=== PATIENT | male | born 1960 | race Caucasian/White ===

== ENCOUNTER 2023-10-20 10:05 | Outpatient (OUT) | payer MEDICARE, SELFPAY ==
[2023-10-20 10:34] LABS: Anion Gap 15.9; BUN Creatinine Ratio 20.3; Calcium 8.8 mg/dL (8.5-10.1); Carbon Dioxide 23.9 mmol/L (21.0-32.0); Chloride 103 mmol/L (98-107); Estimated GFR (African America 56 (>=60); Estimated GFR (Non-African Ame 46 (>=60); Glucose 175 mg/dL (74-106); Potassium 4.8 mmol/L (3.5-5.1); Sodium 138 mmol/L (136-145)
[2023-10-20 10:40] LABS: Estimated Average Glucose 151 mg/dL; Glycohemoglobin A1C 6.9 % (4.5-6.2)
== END 2023-10-20 10:06 | disposition home or self-care (01) ==
LOC: LAB 10:05
PROVIDERS: PCP Nurse Practitioner; Visit Provider Nurse Practitioner
DX: Z12.5 Encounter for screening for malignant neoplasm of prostate (principal); N18.30 Chronic kidney disease, stage 3 unspecified; E11.42 Type 2 diabetes mellitus with diabetic polyneuropathy
CPT/HCPCS: 36415; 80048; 83036; G0103

== ENCOUNTER 2023-12-12 12:41 | Outpatient (RCR) | payer MEDICARE, SELFPAY | END 2024-01-18 17:05 | disposition home or self-care (01) | LOC: PT 12:41 | PROVIDERS: PCP Nurse Practitioner; Visit Provider Orthopaedic Surgery | DX: Z96.641 Presence of right artificial hip joint (principal); R26.89 Other abnormalities of gait and mobility | CPT/HCPCS: 97110; 97161 ==

== ENCOUNTER 2024-02-28 09:09 | Outpatient (OUT) | payer MEDICARE, SELFPAY ==
[2024-02-28 09:34] LABS: Basophils Percent Auto 0.5 % (0.2-2.0); Eosinophils Absolute Auto 0.1 10^3/uL (0.0-0.7); Eosinophils Percent Auto 2.1 % (0.9-7.0); Hematocrit 36.9 % (42.0-54.0); Immature Granulocytes Abs Auto 0.02 10^3/uL (0.00-0.03); Immature Granulocytes Pct Auto 0.4 % (0.0-0.5); Lymphocytes Absolute Auto 1.3 10^3/uL (1.2-3.8); Lymphocytes Percent Auto 22.2 % (20.5-60.0); Mean Corpuscular HGB Conc 32.5 g/dL (29.9-35.2); Mean Corpuscular Hemoglobin 32.2 pg (25.9-34.0); Mean Corpuscular Volume 98.9 fL (80.0-94.0); Monocytes Absolute Auto 0.6 10^3/uL (0.3-0.8); Monocytes Percent Auto 9.6 % (1.7-12.0); Neutrophils Absolute Auto 3.7 10^3/uL (1.4-6.5); Neutrophils Percent Auto 65.2 % (43.0-75.0); Platelet Count 198 10^3/uL (150-450); Red Blood Count 3.73 10^6/uL (4.70-6.10); Red Cell Distribution Width 13.4 % (11.0-15.0); White Blood Count 5.7 10^3/uL (4.0-11.0)
[2024-02-28 09:52] LABS: Bilirubin Urine NEGATIVE (NEGATIVE); Blood Urine NEGATIVE (NEGATIVE); Clarity Urine CLEAR (CLEAR); Color Urine LT. YELLOW (YELLOW); Glucose Urine UA NEGATIVE (NEGATIVE); Ketones Urine NEGATIVE (NEGATIVE); Leukocyte Esterase Urine NEGATIVE (NEGATIVE); Nitrite Urine NEGATIVE (NEGATIVE); Protein Urine NEGATIVE (NEG/TRACE); Urobilinogen Urine 0.2 EU/dL (0.2-1.0); pH Urine 5.5 (5.0-9.0)
[2024-02-28 10:03] LABS: Bacteria Urine NONE SEEN #/HPF (NONE SEEN); Cast Seen? NONE SEEN #/LPF (NONE SEEN); Crystals Seen? None Seen #/HPF (None Seen); Mucus Urine NONE SEEN (NONE SEEN); RBC Urine 0-2 #/HPF (0-2); Squamous Epithelial Cell Urine RARE #/LPF (NONE/RARE); WBC Urine NONE SEEN #/HPF (NONE SEEN)
[2024-02-28 10:42] LABS: Estimated Average Glucose 151 mg/dL; Glycohemoglobin A1C 6.9 % (4.5-6.2)
[2024-02-28 11:10] LABS: Alanine Aminotransferase 28 U/L (16-63); Albumin Globulin Ratio 0.9; Albumin Level 3.5 g/dL (3.4-5.0); Alkaline Phosphatase 120 U/L (46-116); Anion Gap 13.7; Aspartate Amino Transferase 14 U/L (15-37); BUN Creatinine Ratio 18.8; Bilirubin Total 0.3 mg/dL (0.2-1.0); Calcium 9.3 mg/dL (8.5-10.1); Carbon Dioxide 26.7 mmol/L (21.0-32.0); Chloride 103 mmol/L (98-107); Chol HDL Ratio 2.4; Cholesterol 122 mg/dL (<=200); Estimated GFR (African America >60 (>=60); Estimated GFR (Non-African Ame 52 (>=60); Globulin 3.8 g/dL; Glucose 158 mg/dL (74-106); HDL Cholesterol 50 mg/dL (40-60); LDL Cholesterol Calculated 52.2 mg/dL; Potassium 4.4 mmol/L (3.5-5.1); Sodium 139 mmol/L (136-145); Total Protein 7.3 g/dL (6.4-8.2); Triglycerides 99 mg/dL (<=150); VLDL CHOLESTEROL 19.8 mg/dL
[2024-02-28 12:16] LABS: Creatinine Urine Random 44.27 mg/dL (20.00-300.00); Microalbumin Urine Random <1.3 mg/dL (<=30.0)
== END 2024-02-28 09:10 | disposition home or self-care (01) ==
LOC: LAB 09:13
PROVIDERS: PCP Nurse Practitioner; Visit Provider Nurse Practitioner
DX: E78.2 Mixed hyperlipidemia (principal); E11.9 Type 2 diabetes mellitus without complications; Z79.4 Long term (current) use of insulin; N18.30 Chronic kidney disease, stage 3 unspecified; I12.9 Hypertensive chronic kidney disease with stage 1 through stage 4 chronic kidney disease, or unspecified chronic kidney disease; E53.8 Deficiency of other specified B group vitamins; E56.9 Vitamin deficiency, unspecified
CPT/HCPCS: 36415; 80053; 80061; 81001; 82043; 82306; 82570; 82607; 83036; 85025

== ENCOUNTER 2024-05-27 12:40 | Outpatient (OUT) | payer MEDICARE, SELFPAY ==
[2024-05-27 13:24] LABS: Basophils Percent Auto 0.5 % (0.2-2.0); Eosinophils Absolute Auto 0.3 10^3/uL (0.0-0.7); Eosinophils Percent Auto 4.1 % (0.9-7.0); Hematocrit 37.3 % (42.0-54.0); Hemoglobin 12.4 g/dL (14.0-18.0); Immature Granulocytes Abs Auto 0.03 10^3/uL (0.00-0.03); Immature Granulocytes Pct Auto 0.5 % (0.0-0.5); Lymphocytes Absolute Auto 1.5 10^3/uL (1.2-3.8); Lymphocytes Percent Auto 23.1 % (20.5-60.0); Mean Corpuscular HGB Conc 33.2 g/dL (29.9-35.2); Mean Corpuscular Volume 99.2 fL (80.0-94.0); Mean Platelet Volume 10.4 fL (9.5-13.5); Monocytes Absolute Auto 0.6 10^3/uL (0.3-0.8); Monocytes Percent Auto 8.8 % (1.7-12.0); Neutrophils Absolute Auto 4.1 10^3/uL (1.4-6.5); Platelet Count 233 10^3/uL (150-450); Red Blood Count 3.76 10^6/uL (4.70-6.10); Red Cell Distribution Width 13.1 % (11.0-15.0); White Blood Count 6.6 10^3/uL (4.0-11.0)
[2024-05-27 13:26] LABS: Bilirubin Urine NEGATIVE (NEGATIVE); Blood Urine NEGATIVE (NEGATIVE); Clarity Urine CLEAR (CLEAR); Color Urine YELLOW (YELLOW); Glucose Urine UA NEGATIVE (NEGATIVE); Ketones Urine NEGATIVE (NEGATIVE); Leukocyte Esterase Urine NEGATIVE (NEGATIVE); Nitrite Urine NEGATIVE (NEGATIVE); Protein Urine NEGATIVE (NEG/TRACE); Specific Gravity Urine 1.025 (1.005-1.025); Urobilinogen Urine 0.2 EU/dL (0.2-1.0)
[2024-05-27 13:27] LABS: Urine Microscopic Indicated NO
[2024-05-27 13:32] LABS: Estimated Average Glucose 146 mg/dL; Glycohemoglobin A1C 6.7 % (4.5-6.2)
[2024-05-27 13:55] LABS: Anion Gap 14.6; BUN Creatinine Ratio 21.6; Carbon Dioxide 25.7 mmol/L (21.0-32.0); Chloride 103 mmol/L (98-107); Estimated GFR (African America 50 (>=60); Estimated GFR (Non-African Ame 41 (>=60); Glucose 125 mg/dL (74-106); Potassium 5.3 mmol/L (3.5-5.1); Sodium 138 mmol/L (136-145)
== END 2024-05-27 12:41 | disposition home or self-care (01) ==
LOC: LAB 12:42
PROVIDERS: PCP Nurse Practitioner; Visit Provider Nurse Practitioner
DX: I12.9 Hypertensive chronic kidney disease with stage 1 through stage 4 chronic kidney disease, or unspecified chronic kidney disease (principal); N18.30 Chronic kidney disease, stage 3 unspecified; E53.8 Deficiency of other specified B group vitamins; R53.1 Weakness; E11.9 Type 2 diabetes mellitus without complications; Z79.4 Long term (current) use of insulin
CPT/HCPCS: 36415; 80048; 81003; 82607; 83036; 83540; 85025

== ENCOUNTER 2024-06-10 15:11 | Outpatient (OUT) | payer MEDICARE, SELFPAY ==
[2024-06-10 16:02] LABS: Anion Gap 10.9; BUN Creatinine Ratio 22.2; Calcium 8.9 mg/dL (8.5-10.1); Carbon Dioxide 30.5 mmol/L (21.0-32.0); Chloride 103 mmol/L (98-107); Estimated GFR (African America 53 (>=60); Estimated GFR (Non-African Ame 44 (>=60); Glucose 99 mg/dL (74-106); Potassium 4.4 mmol/L (3.5-5.1); Sodium 140 mmol/L (136-145)
== END 2024-06-10 15:12 | disposition home or self-care (01) ==
LOC: LAB 15:12
PROVIDERS: PCP Nurse Practitioner; Visit Provider Nurse Practitioner
DX: N18.32 Chronic kidney disease, stage 3b (principal)
CPT/HCPCS: 36415; 80048

== ENCOUNTER 2024-06-28 07:00 | Outpatient (RCR) | payer MEDICARE, SELFPAY | END 2024-07-26 12:08 | disposition home or self-care (01) | LOC: PT 07:00 | PROVIDERS: PCP Nurse Practitioner; Visit Provider Nurse Practitioner | DX: M47.816 Spondylosis without myelopathy or radiculopathy, lumbar region (principal); M51.36 Other intervertebral disc degeneration, lumbar region; E08.42 Diabetes mellitus due to underlying condition with diabetic polyneuropathy | CPT/HCPCS: 97110; 97161 ==

== ENCOUNTER 2024-09-03 08:22 | Outpatient (OUT) | payer MEDICARE, SELFPAY ==
--- OUTSIDE RECORDS SUMMARY | 2024-09-03 08:27 | XMS_ITS | CCD ---
Author Organization [facility] Care Team Providers Care Music Education Adjunct Professor Name Role Phone PHYSICIAN, DEFAULT Unavailable Unavailable PHYSICIAN, DEFAULT Unavailable Unavailable AICHHOLZ, MANUFACTURING TECH IDALMIS Admitting Unavailable AICHHOLZ, MANUFACTURING TECH IDALMIS Attending Unavailable AICHHOLZ, MANUFACTURING TECH IDALMIS Consulting Unavailable AICHHOLZ, MANUFACTURING TECH IDALMIS Primary Care Unavailable TEMI ANNA Attending Unavailable TEMI ANNA Admitting Unavailable AICHHOLZ, MANUFACTURING TECH IDALMIS Primary Care Unavailable AICHHOLZ, MANUFACTURING TECH IDALMIS Admitting Unavailable AICHHOLZ, MANUFACTURING TECH IDALMIS Attending Unavailable AICHHOLZ, MANUFACTURING TECH IDALMIS Consulting Unavailable AICHHOLZ, MANUFACTURING TECH IDALMIS Primary Care Unavailable AICHHOLZ, MANUFACTURING TECH IDALMIS Admitting Unavailable AICHHOLZ, MANUFACTURING TECH IDALMIS Attending Unavailable AICHHOLZ, MANUFACTURING TECH IDALMIS Consulting Unavailable AICHHOLZ, MANUFACTURING TECH IDALMIS Primary Care Unavailable AICHHOLZ, MANUFACTURING TECH IDALMIS Admitting Unavailable AICHHOLZ, MANUFACTURING TECH IDALMIS Attending Unavailable DR JOCELYN ZALDIVAR V Consulting Unavailable AICHHOLZ, MANUFACTURING TECH IDALMIS Primary Care Unavailable AICHHOLZ, MANUFACTURING TECH IDALMIS Consulting Unavailable NON STAFF Primary Care Provider UnavailMD Naima Nash Attending Provider LUIS Kendall Attending Provider Rasheeda Santamaria Unavailable Aichholz, Idalmis J Primary Care Unavailable Aichholz, Idalmis J Consulting Unavailable JACLYN SNELL Attending Unavailable FATIMAH JACLYN Jos Admitting Unavailable Aichholz, Idalmis J Primary Care Unavailable Jocelyn Zepeda Consulting Unavailable JACLYN SNELL Attending Unavailable STEPRASHAD JACLYN C Admitting Unavailable Alonso Vazquez Consulting Unavailable Aichholz CERTIFIED ADDICTION COUNSELOR, Idalmis Unavailable Aicarthur CERTIFIED ADDICTION COUNSELOR, Idalmis Unavailable Baljinder Pineda MD Primary Care Provider [phone] DEJAN BURT Attending Unavailable DEJAN BURT Attending Unavailable DEJAN BURT Referring Unavailable DEJAN BURT Attending Unavailable SAMAN MORAN Attending Unavailable DEJAN BURT Attending Unavailable MIGUEL, IDALMIS Attending Unavailable JENNY MORANANDRA H Attending Unavailable ELMIRA RUTH Attending Unavailable JOSE KENDALL Attending Unavailable SHERIDANHKUSUM, IDALMIS Attending Unavailable TEMI ANNA Attending Unavailable JOSE KENDALL Referring Unavailable MIGUEL, IDALMIS Attending Unavailable AICHHOLZ, IDALMIS Attending Unavailable SAMAN MORAN H Attending Unavailable MIGUEL, IDALMIS Attending Unavailable Charlie Mcdonald Attending Unavailab le Charlie Mcdonald Admitting Unavailab le NON STAFF Primary Care Unavailable Allergies Allergy Classification Reported Allergen(s) Allergy Type Date of Onset Reaction(s) Facility (1 source) Allopurinol Drug Allergy 4 [facility] (1 source) Bee pollen Drug allergy (disorder) 4 [facility] (1 source) Penicillins Drug allergy (disorder) 4 [facility] (2 sources) Amoxicillin Drug Allergy Unknown [facility] Other (3 sources) Penicillin; Translations: [penicillin] Drug Allergy Unknown [facility] (2 sources) pine trees Propensity to adverse reactions Unknown [facility] Other (2 sources) Tetanus Toxoid Adsorbed Drug allergy Unknown [facility] Other (1 source) Tetanus vaccine; Translations: [tetanus toxoid] Propensity to adverse reactions to drug (disorder) [facility] (4 sources) Penicillins Propensity to adverse reactions 3 Hives, Swelling [facility] (4 sources) Tetanus vaccine Propensity to adverse reactions 3 Hives, Swelling [facility] (1 source) Amoxicillin Drug Allergy 3 [facility] (1 source) Penicillins Drug allergy (disorder) 3 [facility] (1 source) [place] nut Drug allergy (disorder) 3 [facility] (1 source) tetanus toxoid, adsorbed Drug allergy (disorder) 3 [facility] Medications Current Medications Medication Drug Class(es) Dates Sig (Normalized) Sig (Original) amoxicillin 500 mg oral tablet (6 sources) Penicillin-class Antibacterial Start: 12-22-2023 End: 12-22-2023 take 4 tablets by mouth once at mealtime amoxicillin (Amoxil) 500 MG tablet Indications: S/P total right hip arthroplasty 4 tabs PO once 30-60 mins before procedure with food 4 tablet 3 12/22/2023 Active aspirin 81 mg delayed release oral tablet (4 sources) Platelet Aggregation Inhibitor, Nonsteroidal Anti-inflammatory Drug take 1 tablet by mouth in the morning aspirin 81 MG EC tablet Take 81 mg by mouth in the morning. 0 Active atorvastatin 40 mg oral tablet (4 sources) HMG-CoA Reductase Inhibitor Start: 11-16-2023 End: 02-14-2024 take 1 tablet by mouth in the morning atorvastatin (Lipitor) 40 MG tablet Indications: Type 2 diabetes mellitus with peripheral neuropathy (CMS/HCC) Take 1 tablet (40 mg) by mouth in the morning. 90 tablet 1 11/16/2023 02/14/2024 Active cholecalciferol 0.05 mg oral tablet (4 sources) Vitamin D take 1 tablet by mouth in the morning cholecalciferol (Vitamin D-3) 50 MCG (2000 UT) tablet Take 2,000 Units by mouth in the morning. 0 Active docusate sodium 100 mg oral capsule (4 sources) take 1 capsule by mouth in the morning docusate sodium (Colace) 100 MG capsule Take 100 mg by mouth in the morning and 100 mg before bedtime. 0 Active 0.5 ml dulaglutide 3 mg/ml auto-injector (2 sources) GLP-1 Receptor Agonist Trulicity 1.5 MG/0.5ML as directed Subcutaneous Active dulaglutide (Trulicity) 3 MG/0.5ML solution pen-injector (4 sources) Start: 11-16-2023 dulaglutide (Trulicity) 3 MG/0.5ML solution pen-injector Indications: Type 2 diabetes mellitus with peripheral neuropathy (CMS/HCC) INJECT 1 PEN SUBCUTANEOUSLY ONCE A WEEK 12 each 1 11/16/2023 Active fexofenadine hydrochloride 180 mg oral tablet (6 sources) Histamine-1 Receptor Antagonist Start: 09-05-2023 take 1 tablet by mouth in the morning fexofenadine (Dbe) 180 MG tablet Take 180 mg by mouth in the morning. 0 07/18/2023 Active furosemide 20 mg oral tablet (6 sources) Loop Diuretic Start: 11-16-2023 End: 02-14-2024 take 1 tablet by mouth every other day furosemide (Lasix) 20 MG tablet Indications: Bilateral lower extremity edema Take 1 tablet (20 mg) by mouth every other day 45 tablet 1 11/16/2023 02/14/2024 Active take 1 tablet by bertha th every twenty-four hours Furosemide 20 MG 1 tablet Orally Once a day Active gabapentin 300 mg oral capsule (6 sources) Anti-epileptic Agent Start: 07-18-2023 take 1 capsule by mouth in the morning, then take 1 capsule by mouth in the evening, then take 1 capsule by mouth at bedtime gabapentin (Neurontin) 300 MG capsule Take 300 mg by mouth in the morning and 300 mg in the evening and 300 mg before bedtime. 0 07/18/2023 Active glyBURIDE 5 mg oral tablet (6 sources) Sulfonylurea take 2 tablets by mouth in the morning glyBURIDE (Diabeta) 5 MG tablet Take 10 mg by mouth in the morning and 10 mg before bedtime. 0 Active take 1 tablet by bertha th every twenty-four hours glyBURIDE 5 MG 1 tablet Orally Once a day Active ibuprofen 600 mg oral tablet (6 sources) Nonsteroidal Anti-inflammatory Drug take 1 tablet by mouth twice daily as needed ibuprofen 600 MG tablet TAKE 1 TABLET BY MOUTH TWICE DAILY NEEDED WITH FOOD 0 Active 3 ml insulin lispro 25 unt/ml / insulin lispro protamine, human 75 unt/ml pen injector (6 sources) Insulin Analog Start: HumaLOG MIX 75/25 KWIKPEN (75-25) 100 UNIT/ML injection INJECT 53 UNITS SUBCUTANEOUSLY ONCE DAILY 0 08/14/2023 Active lamoTRIgine 150 mg oral tablet (6 sources) Mood Stabilizer, Anti-epileptic Agent Start: 023 take 2 tablets by mouth in the morning lamoTRIgine (LaMICtal) 150 MG tablet Take 2 tablets by mouth in the morning. 0 08/14/2023 Active lamoTRIgine 150 MG Oral for 30 Days Active losartan potassium 50 mg oral tablet (6 sources) Angiotensin 2 Receptor C[place]le Start: 10-24-2023 End: 01-22-2024 take 1 tablet by mouth in the morning losartan (Cozaar) 50 MG tablet Indications: Primary hypertension (CMS/HCC) Take 1 tablet (50 mg) by mouth in the morning. 90 tablet 1 10/24/2023 01/22/2024 Active take 1 tablet by bertha th every twenty-four hours Losartan Potassium 50 MG 1 tablet Orally Once a day Active lurasidone hydrochloride 20 mg oral tablet (10 sources) Atypical Antipsychotic Start: 08-14-2023 take 1 tablet by mouth once daily at mealtime Latuda 80 MG tablet TAKE 1 TABLET BY MOUTH ONCE DAILY WITH FOOD (ATLEAST 350 CALORIES) 0 08/14/2023 Active Start: 08-14-2023 take 1 tablet by bertha th once daily Latuda 20 MG tablet TAKE 1 TABLET BY MOUTH ONCE DAILY (TAKE IN ADDITION TO 80MG TABLET TO EQUAL 100MG) 0 08/14/2023 Active metFORMIN hydrochloride 1000 mg oral tablet (6 sources) Biguanide Start: 11-16-2023 End: 02-14-2024 take 1 tablet by mouth in the morning metFORMIN (Glucophage) 1000 MG tablet Indications: Type 2 diabetes mellitus with peripheral neuropathy (CMS/HCC) Take 1 tablet (1,000 mg) by mouth in the morning and 1 tablet (1,000 mg) before bedtime. Dionisio. 180 tablet 1 11/16/2023 02/14/2024 Active take 1 tablet by bertha th every twelve hours metFORMIN HCl 500 MG 1 tablet with meals Orally Twice a day Active Misc. Devices (Raised Toilet Seat) misc (4 sources) Start: 10-25-2023 End: 10-24-2024 Misc. Devices (Raised Toilet Seat) misc Indications: Pre-op examination , Primary osteoarthritis of right hip 1 Device in the morning. 1 each 0 10/25/2023 10/24/2024 Active pioglitazone 30 mg oral tablet (10 sources) Peroxisome Proliferator Receptor alpha Agonist, Peroxisome Proliferator Receptor gamma Agonist, Thiazolidinedione Start: 12-25-2023 End: 03-27-2024 take 1 tablet by mouth in the morning pioglitazone (Actos) 30 MG tablet Indications: Type 2 diabetes mellitus with peripheral neuropathy (CMS/HCC) Take 1 tablet (30 mg) by mouth in the morning. 90 tablet 1 12/28/2023 03/27/2024 Active take 1 tablet by bertha th every twenty-four hours Actos 15 MG 1 tablet Orally Once a day Active sertraline 50 mg oral tablet (6 sources) Serotonin Reuptake Inhibitor Start: 08-14-2023 take 1 tablet by mouth in the morning sertraline (Zoloft) 50 MG tablet Take 50 mg by mouth in the morning. 0 08/14/2023 Active tiZANidine 4 mg oral tablet (6 sources) Central alpha-2 Adrenergic Agonist Start: 12-25-2023 End: 12-28-2023 tiZANidine (Zanaflex) 4 MG tablet Indications: Cervical pain (neck) At bedtime as needed for muscle spasms 90 tablet 1 12/28/2023 Active Start: 08-30-2023 End: 12-25-2023 tiZANidine (Zanaflex) 4 MG t ablet Problems Active Problems Problem Classification Problem Date Documented Date Episodic/Chronic Acquired foot deformities (4 sources) Adductus deformity of foot; Translations: [Varus deformity, not elsewhere classified, left ankle] Onset: 10-23-2023 10-23-2023 Episodic Chronic kidney disease (2 sources) Chronic kidney disease stage 3; Translations: [Chronic kidney disease (CKD), stage III (moderate) ([facility])] Onset: 12-25-2023 12-25-2023 Chronic Deficiency and other anemia (5 sources) Anemia, unspecified; Translations: [ANEMIA UNSPECIFIED] Onset: 08-02-2022 Episodic Diabetes mellitus with complications (13 sources) Type 2 diabetes mellitus with diabetic neuropathy, unspecified; Translations: [Type 2 diabetes mellitus with hyperglycemia] Onset: 07-11-2022 10-11-2023 Chronic Disorders of lipid metabolism (1 source) Hyperlipidemia; Translations: [Hyperlipidemia, unspecified] Onset: 12-28-2023 12-28-2023 Chronic Essential hypertension (4 sources) Essential hypertension; Translations: [Essential (primary) hypertension] Onset: 10-23-2023 10-23-2023 Chronic Mycoses (4 sources) Tinea cruris; Translations: [Tinea cruris] Onset: 10-23-2023 10-23-2023 Episodic Nutritional deficiencies (12 sources) Deficiency of other specified B group vitamins; Translations: [Vitamin deficiency] Onset: 07-08-2022 Episodic Osteoarthritis (4 sources) Osteoarthritis of hip; Translations: [Osteoarthritis of hip, unspecified] Onset: 10-23-2023 10-23-2023 Chronic Other connective tissue disease (2 sources) History of total hip arthroplasty; Translations: [Presence of right artificial hip joint] 12-21-2023 Chronic Other connective tissue disease (1 source) Muscle weakness (generalized); Translations: [MUSCLE WEAKNESS GENERALIZED] Onset: 03-08-2023 Episodic Other connective tissue disease (1 source) Abnormal posture; Translations: [ABNORMAL POSTURE] Onset: 03-08-2023 Episodic Other connective tissue disease (4 sources) Swelling of left foot; Translations: [Other specified soft tissue disorders] Onset: 10-23-2023 10-23-2023 Episodic Other connective tissue disease (4 sources) Bilateral plantar fasciitis; Translations: [Plantar fascial fibromatosis] Onset: 10-23-2023 10-23-2023 Episodic Other nervous system disorders (1 source) Other abnormalities of gait and mobility; Translations: [OTHER ABNORMALITIES GAIT AND MOBILITY] Onset: 03-08-2023 Episodic Other nervous system disorders (1 source) Unspecified abnormalities of gait and mobility; Translations: [UNS ABNORMALITIES GAIT AND MOBILITY] Onset: 03-08-2023 Episodic Other nervous system disorders (4 sources) Finding of hand region; Translations: [Tremor, unspecified] Onset: 10-23-2023 10-23-2023 Episodic Other non-traumatic joint disorders (2 sources) Pain in right knee; Translations: [PAIN IN RIGHT KNEE] Onset: 03-08-2023 Episodic Other non-traumatic joint disorders (2 sources) Pain in right hip joint; Translations: [Pain in right hip] 12-22-2023 Episodic Other nutritional; endocrine; and metabolic disorders (4 sources) Body mass index 30+ - obesity; Translations: [Obesity, unspecified] Onset: 10-23-2023 10-23-2023 Chronic Other nutritional; endocrine; and metabolic disorders (4 sources) Morbid obesity; Translations: [Morbid (severe) obesity due to excess calories] Onset: 11-02-2023 11-02-2023 Chronic Other screening for suspected conditions (not mental disorders or infectious disease) (5 sources) Encounter for screening for malignant neoplasm of rectum; Translations: [Encounter for screening for malignant neoplasm of prostate] Onset: 07-11-2022 Episodic Other skin disorders (4 sources) Skin lesion; Translations: [Disorder of the skin and subcutaneous tissue, unspecified] Onset: 10-23-2023 10-23-2023 Episodic Residual codes; unclassified (4 sources) Obstructive sleep apnea of adult; Translations: [Obstructive sleep apnea (adult) (pediatric)] Onset: 10-23-2023 10-23-2023 Chronic Residual codes; unclassified (4 sources) Bilateral lower limb edema; Translations: [Localized edema] Onset: 11-16-2023 11-16-2023 Episodic Residual codes; unclassified (1 source) Edema of lower extremity; Translations: [Localized edema] Onset: 12-28-2023 12-28-2023 Episodic Spondylosis; intervertebral disc disorders; other back problems (7 sources) Other intervertebral disc degeneration, lumbar region; Translations: [Degeneration of lumbar intervertebral disc] Onset: 03-08-2023 10-23-2023 Chronic Spondylosis; intervertebral disc disorders; other back problems (10 sources) Radiculopathy, lumbar region; Translations: [Neck pain] Onset: 01-27-2023 Episodic Transient cerebral ischemia (4 sources) Transient cerebral ischemia; Translations: [Transient cerebral ischemic attack, unspecified] Onset: 10-23-2023 10-23-2023 Chronic Unclassified (3 sources) LOW BACK PAIN, UNSPECIFIED; Translations: [LOW BACK PAIN, UNSPECIFIED] Onset: 03-08-2023 Unclassified (1 source) CHRN KIDNEY DISEASE STG 3 UNSP; Translations: [CHRN KIDNEY DISEASE STG 3 UNSP] Onset: 08-03-2022 Past or Other Problems Problem Classification Problem Date Documented Da te Episodic/Chronic Mood disorders (4 sources) Mood disorders Onset: 11-02-2023 11-02-2023 Pneumonia (except that caused by tuberculosis or sexually transmitted disease) (4 sources) Pneumonia; Translations: [Pneumonia, unspecified organism] Onset: 10-23-2023 Resolved: 12-25-2023 10-23-2023 Episodic Unclassified (1 source) LOW BACK PAIN, UNSPECIFIED; Translations: [LOW BACK PAIN, UNSPECIFIED] Onset: 02-27-2023 Results Test Name Value Interpretation Reference Range Facility XR Hip - right 3 [facility] Result: [facility] Radiology Study observation (narrative) [facility] Coding Summaryon 11-15-2023 Coding Summary HTMLBase 64 AnflsephVOp2qRa+PGhl YWQ+WE3YADDhA94dhJVv iK3zT0GPWKaGBtofPSCU MWmJIuUxjsHuLF2hvCDf ZXJu IC8+WA0lKQCdIatzrYAt o6K3cAQ6X90axr7xLFvi gKB4ENYlXlDluflnb8bo aLp1FDknIjsfNpFl PVNszS74FHE1aN20Za38 dTWfpPSqg8ybqEi1EyAi MSLdNUN5sXvaHTvif0Zw LOLrT38jgDHzk7J2 IGNvbGxhcHNlOyBlbXB0 fD9zPHycwhtaz8naetyj Nph9zd77zOUjl8I9vQL2 I7PnnfX5MUQrlDMc RgzckNCGnE5vfkfhl4sc vgfrZzMhRVIqFHh7RAc1 USHmdClwJaUzRY64LSU6 CCQijrHoT2BuSRJp gNsxTyG4y7A7Tx2VJ0KD GgvuC0ETOTJYBRjijIC+ BO94cv68P2YzCapyBnr7 FZHuWKS9jTS2lS5a QVStNWrsw8C1sRB1Y9Uk evBhll9gf0ogYOPcDUqo S37bvLUju9I0HDQodDN2 CZBmcVdwHeQxdT34 Oyc+JQKonNhts1QyVogl i1wfw4fxqUk7XfiiWMPc neMjiWayQYC8v0WoQl4g EYKpcXF9fJC8qH2k BuNuHoJ9XFwnW585BmMl sCDzYuiqB63sJ2QuiCL+ HJBmIoq5OCLgiWlsNV6h P4VeUWItqdcbwERl aIkmBR6yRHYimvesXDMk zA2uSOPbG8o8JkGiAbU0 YVvsS8YdRAPgsqgzNl38 nF5dSfFhKyE3FKba L7BgwuI2AIWopWMhDSgc DED3G77qd6J6PWLpUIIu YZO7yVZ6pL7xhFxrbdlh bGVmdDsgdmVydGlj DFanTScxE277ZCWjaRet PkNvZGluZyBEYXRlOiAg MDEvMDMvMjAyNDwvdGQ+ YYEbWQI2uYitZZId hMOpKGafXo8lmVoxeSnn EP7gVPEtgozsJDGcsX5p OFQiyAXixDuvCN1eWZLk xyulr287DwXnPAJ7 CFWfzXRqG8SzeV6fKrVv SBEiULVfE2MmcBYsLXwz Y237RFroEoT9FVMksjNk V4KgDEAilTqxXeW2 u0X7Ul2Xo1HtifmzZ9Hq vROxLxDeVspzIVb3A8Qm PjwvdHI+YF33BEPaHI50 CMv9PCP2tZpqTXkj TIWhI9ZqtI4aGfFfDSMk ZGRkOyc+PHRhYmxlIHdp ZHRoPScxMDAlJyBzdHls FS2kRa7gRSJrVONl iPhswKOxQrRfb3loRGVo JSdrMD8eqCdcA7ZyjKA8 BBFhy5c7Pf94U44bA6Ru dXA+CTRafCE0vTY9 hG4mAySsXwG2QHhrX246 MuDvbRRpOdyfn7gsw1cp uHr8LuW2WTQrzwWmdFbe KPZ2l9AqXr36Y29x IHdpZHRoPSIxNSUiIHZh bZhlhe1zgV6bWy3+PGNv vFE2dHX9mA8gErCyCeH3 LUcmK949JgItfMPq Ljtdq5uwj7xvbZk3LdZx IDSmulDwtGrhMCP1p8Ky Nj58D4BkjHgij0EzLcb7 wc01pCIew0V0kBC8 R0FqTGYdggshyFXyjWqc UD7xVRDllmdaNPHlsV4d PICbL5p9VuGyVcY7OLgi N9MpboB5MXRqhHYb GBSqfRTEkY7bseqdc5hw hukjEhZqURJiTKa3IBr1 NATldSjfAqOvVOH5RpE0 JIX6mBEucB3mpEdv ivkmzB9hEyy+KOP9zBWr aTAGHS7xGxphjGX+PHRk LWX0lIvxKYjcWEBkaD7s GORoD9e1OiQsKrF2 FRveI1KnhaN7YKAskIBz QGLurCOObH3regzyu6hq mahcDbVeCRTlWDs1ULv6 LWFsaWduOiBsZWZ0 RwJ6GHB0xFVtuQ2jpZol gqakcB9xGxu+QmlydGgg JTV4IPc3R2HzPbf3SLGn pYleYU2sdCPoYRpw Nz2geQbalDbdCL7dCKAy cwivp284NxWdc1uwEWAn vBGzTCmwJOL4L47tf8Q9 LLPkEWWdGJA1hUW5 kA5oeBrvbeewdNNnzPmi dlWicYhcSPkhQFawQ660 FIMlpLmcTySsSRg1G5Ki Kmd1FGAerGtdGU6w xGLdFZdhTc5yzXigbLcx PC4bWQGmxjhwx742IjUh t3neZFVdkIWvNYhuUCB3 O77cf5S9PMJzHSLn QHN1tBC9hH2hzXfsbtac bGVmdDsgdmVydGljYWwt WSfdL543CINgnJnaPxYl jJy1Y7DcRsh6IETn kGmnPP1qxPGfZEnnNl9a xJjaaSufGK9uJVTzdska j164HzQbn2okZZSknRTi HJkdCPZ1O30jb7G2 ORJuKEBdRKF8yBR0wJ8d bGlnbjogbGVmdDsgdmVy fLxuAQoiCQkyJ501WSQm cDsnPlBhdGllbnQg VVewEJh7W5RsCizmlHD+ ZG92AJNjXS98nUWeeKIg x6nqeKc4FoLtTBFqPMY9 cVxdOFryh0LiNBLy K78wbATyz8W7RFTcnVsg iIVnJrWbhDV3uX4uIDrb osgas9sgozxaHxpbx8rz xk70hY99G56sTRqo ZHRoPSIzMCUiIHZhbGln hg8yyM3bVb6+PGNvbCB3 pAY2wU3cTQEvTbE4SWnf E162YnQavYHwVkth g8aqk2yidCn1VtC0BGTf buOrnMvmVVB9v0EpGf28 F81xJOhtNWAbPXIjSMBl EXQnmXkfuw2dmV0a Ii8+YZAuuNR8pFE2zJ3v CbUiNlN4CHpfG396DhJt eTNfGtuhK99pN6CjuNB+ MCRtRkc2MRYvtXpy PC1joFTuIUewQm4zDXU4 RtBrOjOhBTlrV4UhEOBx bymvdxclqFJ0SJKmABQq xE74Ym0ixPjlZJGi pIVUwA9qxvqjw0nujexh XyHjGRCoMLa2QNu4QOVg hIvsMaHwTVQ6RmQ6YRZ9 jCWbgQ4oxEcbqact vY2oE1PyYTIqkmgeCi90 bI9aJpVqPdW6PSbgZzd+ B8BATm4WMzuzM6OHNPJp DNaKHZJGNVUQDP08 OO40kTHjk5L2aHE4Q4Mm QJXlrwdbdvgdxYU1IIKx MGLquS28fTVzTRezQf5j z0H5v543XCUsRXCl vK01Cj4qdWkkDILjbOMK gV8vctjcf5ctuvvyJlYf FQAsQUk9RPa7XSOcsYap RdAxLED5NzV0HNP9 eQJkeA3woCmighewrO1p Oyc+EMUwMfXhDFc7YJiz dGQ+MIEzQNF9oUcmNCuj LITmcR4dFXCdW8a3 FyInZvX6MOxxR7SaZIUx vufcVf95mE9oFvHnBpJ5 JImlE4GjdpW7BLIyfFUm WLohFWU9L92nr6G1 PWXiCVPfIVP0hLK0aH6m bGlnbjogbGVmdDsgdmVy qDuhWWjjUCiqS429TTDr yVzdDiN1SUirCLGd AF29IA29mUElk2M4nHZ0 A0EjCOEbhjvqkeitcDP9 SSRmBZLtyO67pSYjENjg Fr4go9F2m355ZCYr HBNghK06Au2evEydHJSk wCRMuX3esxoic4tjllsz XdQdCVZhSOn6GYi1DAUr iJumJeAlDKP2OyZ8 GPI8aPDpkU6wrZpgmrbz nJ2sGbb+TUFMRTwvdGQ+ ALMsNKS9mLuxHYzvDHNw fQ3tIJAnE1w5OnUc NdF4NMifE9VkWUTcxiej Ab11kQ5aJtPnZkS5XYoh G7QghxG6JHMrqMSfIHeu BDX8G78ah6Z6PQUp IJHtZOQ2xJF9aZ0mgRoz bjogbGVmdDsgdmVydGlj TPinEMujG653CULyuCsm Ue9lf8ZiuqC4vG5e XZ46BM37L8SzLcafiYXg bGU+PHRhYmxlIHdpZHRo BTpeCBBvFuOlvMcgSR4y Xm1oMEHkYNKnvKek sWFdNxIkf6mnWXEcDQsp GZ4fsVkuJ2WfpGI5MICd x7u0Co96H49mA1MwiII+ JLUsiNJ8mES3aB1r DcSdJpD1TJmwY956ZzFi dQLrSrmxb6jna5tnrTz6 IjMwJSIgdmFsaWduPSJ0 g5WxIm81Y01tYGmi ZHRoPSIyMCUiIHZhbGln eo9kiO0eBr7+PGNvbCB3 jPB4qA4wEuAoBhI4EXtt J955GnBlwUFrWuvu R19hU6JvpKO+PHRyPjx0 JNAnoDzkJW7nyPLbLHpv Qw6eOUO0PcIpAaXcHLyh S6LfAGJohiputlji cCJ3RXWwZMAdnZ84Cn2y rKqoZk3aYDZaGTE4NPRh zSVrJ0TdjF0wBgQxQYNh JVXgK1FjkWDmXShs M565AIrlFpR3LOLjmjVd V5AiXWZulIwzUoX4a7Z6 Ob5EcElgxLMbXV6eFkNx VNe6A3QtDvu7WVOb sJimAN8qwFOgBEgiJq1q nVolfBklQD1uTSPufjma m025JfAuv6heBNHxqZSf FUzbRGP3J14vu2P2 WPCiITJqKMI2pSC1oT7d bGlnbjogbGVmdDsgdmVy xHuwPXsqSBlzW087SOWu gEylYfTIArc0M8Vs Idn7KRDzwLbcNF2lqJMw TXfxDj5roOlelAspTG5l KHIogccxh205XyVdj5nd IDEwcHQgVGltZXM7 K42vr5W7OWKbIKYdRLR9 sFM7pS5adFzpuhoyxBSp dDsgdmVydGljYWwtYWxp I059JLTvhDynVq4X Iks3Z4ZvVpa4BCUqzPpn RI3rwHDwIPhwWg8jhAgq zBviCE0sJHApsybup571 RaAaz4htCMKsjNZt SWokQGK8G02td2N7GPXi BEXsIKV4eJF6cP6zzEty bjogbGVmdDsgdmVydGlj UFxmQFolB662KMJs cDsnPlBheWVyOjwvdGQ+ AT05vv55U0ZzXarkHrp6 YTRlQEV8gXC1uT1bOHYk LUvld3F0xBG6K9Zq cmR (more content not included)... [facility] Anesthesia Noteon 11-14-2023 Anesthesia Note [id number]# 1.00[facility] Consent Formson 11-14-2023 Consent Forms [id number] #[address] [place] [address] Outside Recordson 11-14-2023 Outside Records [id number] #1.00[facility] Provider Orderson 11-14-2023 Provider Orders [id number] #1.00[facility] Telemetry Stripson Telemetry Strips [id number] #1.00[facility] .Auto Diff 111-10-2023 Auto [place] % 7 % Normal 11-24 [facility] Comment on above: Performed By: #### 4 [id number] #### [facility] (DEFAULT) [address] [place] [address] Baso Abs# 0.0 x10 Normal 0.0-0.2 [facility] Comment on above: Performed By: #### 4 [id number] #### [facility] (DEFAULT) [address] [place] [address] Basophils/100 WBC (Bld) 0.3 % Normal 0.2-2.0 [facility] Comment on above: Performed By: #### 4 [id number] #### [facility] (DEFAULT) [address] [place] [address] Eos Abs# 0.2 x10 Normal 0.0-0.4 [facility] Comment on above: Performed By: #### 4 [id number] #### [facility] (DEFAULT) [address] [place] [address] Eosinophils/100 WBC (Bld) 3.3 % Normal 0.9-4.0 [facility] Comment on above: Performed By: #### 4 [id number] #### [facility] (DEFAULT) [address] [place] [address] Lymph Abs# 0.6 x10 Low 1.3-2.9 [facility] Comment on above: Performed By: #### 4 [id number] #### [facility] (DEFAULT) [address] [place] [address] Lymphocytes/100 WBC (Bld) 9 % Low 14-48 [facility] Comment on above: Performed By: #### 4 [id number] #### [facility] (DEFAULT) [address] [place] [address] Denali Abs# 0.5 x10 Normal 0.0-0.8 [facility] Comment on above: Performed By: #### 4 [id number] #### [facility] (DEFAULT) [address] [place] [address] Neut Abs# 5.3 x10 Normal 1.5-9.2 [facility] Comment on above: Performed By: #### 4 [id number] #### [facility] (DEFAULT) [address] [place] [address] Neutrophils/100 WBC (Bld) 80 % Normal 44-88 [facility] Comment on above: Performed By: #### 4 [id number] #### [facility] (DEFAULT) [address] [place] [address] CBC w/ Auto Diffon 3 Erythrocyte distribution width (RBC) [Ratio] 13.2 % Normal 11.5-15.0 [facility] Comment on above: Performed By: #### 4 [id number] #### [facility] (DEFAULT) [address] [place] [address] Hematocrit (Bld) [Volume fraction] 27.0 % Low 34.8-51.9 [facility] Comment on above: Performed By: #### 4 [id number] #### [facility] (DEFAULT) [address] [place] [address] Hemoglobin (Bld) [Mass/Vol] 9.6 g/dL Low 11.8-17.7 [facility] Comment on above: Performed By: #### 4 [id number] #### [facility] (DEFAULT) [address] [place] [address] Man Diff? Auto Invalid Interpretation Code [facility] Comment on above: Performed By: #### 4 [id number] #### [facility] (DEFAULT) [address] [place] [address] MCH (RBC) [Entitic mass] 35 pg High 24-34 [facility] Comment on above: Performed By: #### 4 [id number] #### [facility] (DEFAULT) [address] [place] [address] MCHC (RBC) [Mass/Vol] 36 g/dL Normal 26-37 [facility] Comment on above: Performed By: #### 4 [id number] #### [facility] (DEFAULT) [address] [place] [address] MCV (RBC) [Entitic vol] 97 fL Normal 81-100 [facility] Comment on above: Performed By: #### 4 [id number] #### [facility] (DEFAULT) [address] [place] [address] Platelet 158 x10 Normal 138-427 [facility] Comment on above: Performed By: #### 4 [id number] #### [facility] (DEFAULT) [address] [place] [address] Platelet mean volume (Bld) [Entitic vol] 8.6 fL Normal 6.3-10.2 [facility] Comment on above: Performed By: #### 4 [id number] #### [facility] (DEFAULT) [address] [place] [address] RBC 2.77 x10 Low 3.70-5.30 [facility] Comment on above: Performed By: #### 4 [id number] #### [facility] (DEFAULT) [address] [place] [address]642 WBC 6.7 x10 Normal 3.5-10.5 [facility] Comment on above: Performed By: #### 4 [id number] #### [facility] (DEFAULT) [address] [place] [address] Electrolyte Panel Standardon 11-10-2023 Anion gap [Moles/Vol] 11.3 mmol/L Normal 5.0-19.0 [facility] Comment on above: Performed By: #### 4 [id number] #### [facility] (DEFAULT) [address] [place] [address]18 Chloride [Moles/Vol] 101 mmol/L Normal 101-111 [facility] Comment on above: Performed By: #### 4 [id number] #### [facility] (DEFAULT) [address] [place] [address]33 CO2 [Moles/Vol] 27 mmol/L Normal 21-32 [facility] Comment on above: Performed By: #### 4 [id number] #### [facility] (DEFAULT) [address] [place] [address]97 Potassium [Moles/Vol] 4.3 mmol/L Normal 3.6-5.1 [facility] Comment on above: Performed By: #### 4 [id number] #### [facility] (DEFAULT) [address] [place] [address] Sodium [Moles/Vol] 135.0 mmol/L Low 136.0-144.[address] [facility] Comment on above: Performed By: #### 4 [id number] #### [facility] (DEFAULT) [address] [place] [address] Inpatient Patient Summaryon 11-10-2023 Inpatient Patient Summary [address] [address] Patient Discharge Instructions Name: ROBBIN BARTLETT : 1960 Patient Address: [address] [place] [address] Primary Care Provider: Name: Idalmis Adam CNP After you are discharged if you find you have any questions, please, call [phone] ext [phone] to speak to a nurse. The Pharmacy at [facility] is open Monday through Monday from 9A to 6P and Monday and Monday from 9A to 5P Discharge Diagnosis: 1:S/P total right hip arthroplasty; 2:DM2 (diabetes mellitus, type 2); 3:HTN (hypertension); 4:Depression; 5:Hyperlipidemia Prescription Information: If you have been given a prescription for narcotics, seek immediate medical attention if you have any difficulty breathing or any sudden status changes such as confusion and sleepiness. If you or anyone you know is experiencing suicidal thoughts, mental health, alcohol and/or drug addiction problems; contact the [facility] 05/06 Crisis Hotline -Text 4HXZA mh [id number]. If you received any narcotics, sedation, or any other medication that causes drowsiness for the next 24 hours, unless otherwise directed: ? Do not drive a car. ? Do not operate machinery such as power tools, lawn mowers, drills, sewing machines, or stoves ? Avoid alcoholic beverages and drugs for allergies, nerves, or sleep ? Do not make important personal or business decisions or sign any legal documents [facility] would like to thank you for allowing us to assist you with your healthcare needs. The following includes patient education materials and information regarding your injury/illness. ROBBIN BARTLETT has been given the following list of follow-up instructions, prescriptions, and patient education materials: Follow-up Instructions With: Address: When: Idalmis Adam [address] [place] [address] Business (1) With: Address: When: Dejan Burt [address] [place] [address], [address] [place] [address] Business (1) 11/22/2023 10:00 AM Medications During the course of your visit, your medication list was updated with the most current information. The details of those changes are reflected below: Medications That Were Updated - Follow Below Instructions Other Medications Updated: furosemide (furosemide 20 mg oral tablet) 1 tab(s) Oral (given by mouth) every other day. Updated: glyBURIDE (GlyBURIDE (Eqv-Micronase) 5 mg oral tablet) 2 tab(s) Oral (given by mouth) 2 times a day (scheduled). Updated: insulin lispro-insulin lispro protamine (HumaLOG Mix 75/25 KwikPen subcutaneous suspension) 53 unit(s) Subcutaneous (under the skin) At bedtime. Updated: lurasidone (Latuda 20 mg oral tablet) 1 tab(s) Oral (given by mouth) every day. TAKE WITH 80 MG FOR A TOTAL OF 100 MG A DAY.. Updated: lurasidone (Latuda 80 mg oral tablet) 1 tab(s) Oral (given by mouth) every day. TAKE WITH 20MG TABLET FOR A TOTAL OF 100MG A DAY. TAKE WITH FOOD (ATLEAST 350 CALORIES). Medications to Continue That Have Not Changed Other Medications atorvastatin (atorvastatin 40 mg oral tablet) 1 tab(s) Oral (given by mouth) every day. dulaglutide (Trulicity Pen 3 mg/0.5 mL subcutaneous solution) 3 Milligram Subcutaneous (under the skin) every week. Durable Medical Equipment for Prescription (MM PEN NEEDLES 31G X 5MM MIS) USE SUBCUTANEOUSLY TWICE DAILY DIRECTED. fexofenadine (fexofenadine 180 mg oral tablet) 1 tab(s) Oral (given by mouth) every day. fluocinonide topical (fluocinonide 0.05% topical solution) APPLY TO AFFECTED AREAS ON SCALP TWICE DAILY NEEDED FOR FLARES ONLY. gabapentin (gabapentin 300 mg oral capsule) 1 cap(s) Oral (given by mouth) 3 times a day (scheduled). lamoTRIgine (lamoTRIgine 150 mg oral tablet) 1 tab(s) Oral (given by mouth) 2 times a day (scheduled). losartan (losartan 50 mg oral tablet) 1 tab(s) Oral (given by mouth) every day. metFORMIN (metFORMIN 1000 mg oral tablet) 1 tab(s) Oral (given by mouth) 2 times a day (scheduled). sertraline (sertraline 50 mg oral tablet) 1 tab(s) Oral (given by mouth) every day. tiZANidine (tiZANidine 4 mg oral tablet) 1 tab(s) Oral (given by mouth) At bedtime as needed muscle spasm. No Longer Take the Following Medications ibuprofen (ibuprofen 600 mg oral tablet) TAKE 1 TABLET BY MOUTH TWICE DAILY NEEDED WITH FOOD. It is important to always keep an active list of medications available so that you can share with other providers and manage your medications appropriately. As an additional courtesy, we are also providing you with your final active medications list that you can keep with you. atorvastatin (atorvastatin 40 mg oral tablet) 1 tab(s) Oral (given by mouth) every day. dulaglutide (Trulicity Pen 3 mg/0.5 mL subcutaneous solution) 3 Milligram Subcutaneous (under the skin) every week. Durable Medical Equipment for Prescriptio (more content not included)... Normal [facility] POCT Glucose Levelon 023 Glucose [Mass/Vol] 245 mg/dL High 74-118 [facility] Comment on above: Performed By: #### 4 [id number] ####[facility] (DEFAULT)[address] [place] [address] Glucose [Mass/Vol] 195 mg/dL High 74-118 [facility] Comment on above: Performed By: #### 4 [id number] ####[facility] (DEFAULT)[address] [place] [address] Pharmacy Noteon 11-10-2023 Pharmacy Note I have personally reviewed the patient's medication list upon discharge including, prescription medications, OTC products, vitamins and supplements. Below are the following medications the patient is discharged on. Medications That Were Updated - Follow Below Instructions Other Medications Updated: furosemide (furosemide 20 mg oral tablet) 1 tab(s) Oral (given by mouth) every other day. Updated: glyBURIDE (GlyBURIDE (Eqv-Micronase) 5 mg oral tablet) 2 tab(s) Oral (given by mouth) 2 times a day (scheduled). Updated: insulin lispro-insulin lispro protamine (HumaLOG Mix 75/25 KwikPen subcutaneous suspension) 53 unit(s) Subcutaneous (under the skin) At bedtime. Updated: lurasidone (Latuda 20 mg oral tablet) 1 tab(s) Oral (given by mouth) every day. TAKE WITH 80 MG FOR A TOTAL OF 100 MG A DAY.. Updated: lurasidone (Latuda 80 mg oral tablet) 1 tab(s) Oral (given by mouth) every day. TAKE WITH 20MG TABLET FOR A TOTAL OF 100MG A DAY. TAKE WITH FOOD (ATLEAST 350 CALORIES). Medications to Continue That Have Not Changed Other Medications atorvastatin (atorvastatin 40 mg oral tablet) 1 tab(s) Oral (given by mouth) every day. dulaglutide (Trulicity Pen 3 mg/0.5 mL subcutaneous solution) 3 Milligram Subcutaneous (under the skin) every week. Durable Medical Equipment for Prescription (MM PEN NEEDLES 31G X 5MM MIS) USE SUBCUTANEOUSLY TWICE DAILY DIRECTED. fexofenadine (fexofenadine 180 mg oral tablet) 1 tab(s) Oral (given by mouth) every day. fluocinonide topical (fluocinonide 0.05% topical solution) APPLY TO AFFECTED AREAS ON SCALP TWICE DAILY NEEDED FOR FLARES ONLY. gabapentin (gabapentin 300 mg oral capsule) 1 cap(s) Oral (given by mouth) 3 times a day (scheduled). lamoTRIgine (lamoTRIgine 150 mg oral tablet) 1 tab(s) Oral (given by mouth) 2 times a day (scheduled). losartan (losartan 50 mg oral tablet) 1 tab(s) Oral (given by mouth) every day. metFORMIN (metFORMIN 1000 mg oral tablet) 1 tab(s) Oral (given by mouth) 2 times a day (scheduled). sertraline (sertraline 50 mg oral tablet) 1 tab(s) Oral (given by mouth) every day. tiZANidine (tiZANidine 4 mg oral tablet) 1 tab(s) Oral (given by mouth) At bedtime as needed muscle spasm. No Longer Take the Following Medications ibuprofen (ibuprofen 600 mg oral tablet) TAKE 1 TABLET BY MOUTH TWICE DAILY NEEDED WITH FOOD. Discharge Med Rec Notes: Reviewed admission medication list against external fill history and available MANAGER [employer] medication history to ensure accuracy. Reviewed regimen upon discharge which is appropriate and correct. [Electronically Signed on: 11/10/2023 11:26 EST] Gino Cortes [Verified on: 11/10/2023 11:26 EST] Gino Cortes Normal [facility] .Auto Diff 11-09-2023 Auto [place] % 9 % Normal 11-24 [facility] Comment on above: Performed By: #### 4 [id number] #### [facility] (DEFAULT) [address] [place] [address] Baso Abs# 0.0 x10 Normal 0.0-0.2 [facility] Comment on above: Performed By: #### 4 [id number] #### [facility] (DEFAULT) [address] [place] [address] Basophils/100 WBC (Bld) 0.1 % Low 0.2-2.0 [facility] Comment on above: Performed By: #### 4 [id number] #### [facility] (DEFAULT) [address] [place] [address] Eos Abs# 0.1 x10 Normal 0.0-0.4 [facility] Comment on above: Performed By: #### 4 [id number] #### [facility] (DEFAULT) [address] [place] [address] Eosinophils/100 WBC (Bld) 1.0 % Normal 0.9-4.0 [facility] Comment on above: Performed By: #### 4 [id number] #### [facility] (DEFAULT) [address] [place] [address] Lymph Abs# 0.4 x10 Low 1.3-2.9 [facility] Comment on above: Performed By: #### 4 [id number] #### [facility] (DEFAULT) [address] [place] [address]73 Lymphocytes/100 WBC (Bld) 6 % Low 14-48 [facility] Comment on above: Performed By: #### 4 [id number] #### [facility] (DEFAULT) [address] [place] [address] Denali Abs# 0.6 x10 Normal 0.0-0.8 [facility] Comment on above: Performed By: #### 4 [id number] #### [facility] (DEFAULT) [address] [place] [address] Neut Abs# 6.1 x10 Normal 1.5-9.2 [facility] Comment on above: Performed By: #### 4 [id number] #### [facility] (DEFAULT) [address] [place] [address] 48124 Neutrophils/100 WBC (Bld) 84 % Normal 44-88 [facility] Comment on above: Performed By: #### 4 [id number] #### [facility] (DEFAULT) [address] [place] [address] CBC w/ Auto Diffon Erythrocyte distribution width (RBC) [Ratio] 13.4 % Normal 11.5-15.0 [facility] Comment on above: Order Comment: I spo ke with Petrona Stone RN via person to person. I had asked if I could get this blood work before 0600. She said that it was okay. 11/09/2023 04:43:50 EST Performed By: #### 4 [id number] #### [facility] (DEFAULT) [address] [place] [address] Hematocrit (Bld) [Volume fraction] 26.7 % Low 34.8-51.9 [facility] Comment on above: Order Comment: I spo ke with Petrona Stone RN via person to person. I had asked if I could get this blood work before 0600. She said that it was okay. 11/09/2023 04:43:50 EST Performed By: #### 4 [id number] #### [facility] (DEFAULT) [address] [place] [address]283 Hemoglobin (Bld) [Mass/Vol] 9.6 g/dL Low 11.8-17.7 [facility] Comment on above: Order Comment: I spo ke with Petrona Stone RN via person to person. I had asked if I could get this blood work before 0600. She said that it was okay. 11/09/2023 04:43:50 EST Performed By: #### 4 [id number] #### [facility] (DEFAULT) [address] [place] [address] Man Diff? Auto Invalid Interpretation Code [facility] Comment on above: Order Comment: I spo ke with Petrona Stone RN via person to person. I had asked if I could get this blood work before 0600. She said that it was okay. 11/09/2023 04:43:50 EST Performed By: #### 4 [id number] #### [facility] (DEFAULT) [address] [place] [address]556 MCH (RBC) [Entitic mass] 35 pg High 24-34 [facility] Comment on above: Order Comment: I spo ke with Petrona Stone RN via person to person. I had asked if I could get this blood work before 0600. She said that it was okay. 11/09/2023 04:43:50 EST Performed By: #### 4 [id number] #### [facility] (DEFAULT) [address] [place] [address]06 MCHC (RBC) [Mass/Vol] 36 g/dL Normal 26-37 [facility] Comment on above: Order Comment: I spo ke with Petrona Stone RN via person to person. I had asked if I could get this blood work before 0600. She said that it was okay. 11/09/2023 04:43:50 EST Performed By: #### 4 [id number] #### [facility] (DEFAULT) [address] [place] [address] MCV (RBC) [Entitic vol] 97 fL Normal 81-100 [facility] Comment on above: Order Comment: I spo ke with Petrona Stone RN via person to person. I had asked if I could get this blood work before 0600. She said that it was okay. 11/09/2023 04:43:50 EST Performed By: #### 4 [id number] #### [facility] (DEFAULT) [address] [place] [address]87 Platelet 154 x10 Normal 138-427 [facility] Comment on above: Order Comment: I spo ke with Petrona Stone RN via person to person. I had asked if I could get this blood work before 0600. She said that it was okay. 11/09/2023 04:43:50 EST Performed By: #### 4 [id number] #### [facility] (DEFAULT) [address] [place] [address] 21788 Platelet mean volume (Bld) [Entitic vol] 8.8 fL Normal 6.3-10.2 [facility] Comment on above: Order Comment: I spo ke with Petrona Stone RN via person to person. I had asked if I could get this blood work before 0600. She said that it was okay. 11/09/2023 04:43:50 EST Performed By: #### 4 [id number] #### [facility] (DEFAULT) [address] [place] [address] 51655 RBC 2.76 x10 Low 3.70-5.30 [facility] Comment on above: Order Comment: I spo ke with Petrona Stone RN via person to person. I had asked if I could get this blood work before 0600. She said that it was okay. 11/09/2023 04:43:50 EST Performed By: #### 4 [id number] #### [facility] (DEFAULT) [address] [place] [address] 19491 WBC 7.2 x10 Normal 3.5-10.5 [facility] Comment on above: Order Comment: I spo ke with Petrona Stone RN via person to person. I had asked if I could get this blood work before 0600. She said that it was okay. 11/09/2023 04:43:50 EST Performed By: #### 4 [id number] #### [facility] (DEFAULT) [address] [place] [address]27 Electrolyte Panel Standard 11-09-2023 Anion gap [Moles/Vol] 13.3 mmol/L Normal 5.0-19.0 [facility] Comment on above: Order Comment: I spo ke with Petrona Stone RN via person to person. I had asked if I could get this blood work before 0600. She said that it was okay. 11/09/2023 04:43:50 EST Performed By: #### 4 [id number] #### [facility] (DEFAULT) [address] [place] [address]852 Chloride [Moles/Vol] 101 mmol/L Normal 101-111 [facility] Comment on above: Order Comment: I spo ke with Petrona Stone RN via person to person. I had asked if I could get this blood work before 0600. She said that it was okay. 11/09/2023 04:43:50 EST Performed By: #### 4 [id number] #### [facility] (DEFAULT) [address] [place] [address]31 CO2 [Moles/Vol] 26 mmol/L Normal 21-32 [facility] Comment on above: Order Comment: I spo ke with Petrona Stone RN via person to person. I had asked if I could get this blood work before 0600. She said that it was okay. 11/09/2023 04:43:50 EST Performed By: #### 4 [id number] #### [facility] (DEFAULT) [address] [place] [address]40 Potassium [Moles/Vol] 4.3 mmol/L Normal 3.6-5.1 [facility] Comment on above: Order Comment: I spo ke with Petrona Stone RN via person to person. I had asked if I could get this blood work before 0600. She said that it was okay. 11/09/2023 04:43:50 EST Performed By: #### 4 [id number] #### [facility] (DEFAULT) [address] [place] [address] 28094 Sodium [Moles/Vol] 136.0 mmol/L Normal 136.0-144.[address] [facility] Comment on above: Order Comment: I spo ke with Petrona Stone RN via person to person. I had asked if I could get this blood work before 0600. She said that it was okay. 11/09/2023 04:43:50 EST Performed By: #### 4 [id number] #### [facility] (DEFAULT) [address] [place] [id number] MAGR Postoperative Recordon 11-09-2023 MAGR Postoperative Record MAGR Phase II Record Summary Primary Physician: JACLYN SNELL DO Finalized Date/Time: 11/09/23 08:48:08 Pt. Name: ROBBIN BARTLETT./Sex: 1960 MALE Med Rec #: [id number] Physician: JACLYN SNELL DO Financial #: [id number] Pt. Type: O Room/Bed: [facility]/ Admit/Disch: 11/08/23 08:03:44 - Institution: Phase II Case Times MAGR Pre-Care Text: Patient is free from s/s of injury. Patient remains free from compromised physical state related to surgery or anesthesia. Patient comfort maintained. Patient/family verbalize understanding of discharge instructions. Entry 1 In PACU II 11/08/23 14:50:00 Discharge from PACU 11/08/23 16:30:00 II Last Modified By: Conchita Siegel RN 11/09/23 08:48:02 Post-Care Text: The patient remains free from s/s of injury. Patient's vital signs stable, circulation maintained, return to preop mental and physical status, opsite/dressing intact, minimal or absent nausea and vomiting, tolerates po intake. Patient verbalizes adequate pain control. Patient/family express understanding of discharge instructions. Finalized By: Conchita Siegel RN Document Signatures Signed By: Conchita Siegel RN 11/09/23 08:48 Normal [facility] POCT Glucose Levelon 023 Glucose [Mass/Vol] 235 mg/dL High [address] [place] [address] Comment on above: Performed By: #### 4 [id number] #### [facility] (DEFAULT) [address] [place] [address]33 Glucose [Mass/Vol] 177 mg/dL High [address] [place] [address] Comment on above: Performed By: #### 4 [id number] #### [facility] (DEFAULT) [address] [place] [address] 72609 Glucose [Mass/Vol] 224 mg/dL High [address] [place] [address] Comment on above: Performed By: #### 4 [id number] ####[facility] (DEFAULT)[address] [place] [address]73 Glucose [Mass/Vol] 196 mg/dL [address] Comment on above: Performed By: #### 4 [id number] #### [facility] (DEFAULT) [address] [place] [address] 11600 Glucose [Mass/Vol] 163 mg/dL High [address] [place] [address] Comment on above: Performed By: #### 4 [id number] #### [facility] (DEFAULT) [address] [id number] Progress Note - Nurseon - Progress Note - Nurse Patient calls to use restroom. SBA assist to toilet, but toilet elevator is too narrow for patient and pushing on hip, causing discomfort. Charge goes to get commode instead and patient assisted back to bed. Patient diaphoretic and thinks he has a fever, temp was 98.3F. Patients sugar checked and is 163. Patient states his ice pack is warm and needs to be changed, but jesters to his dressing (Ice pack had been on couch). Despite this, patient A/O x4. Patient asked if he would like to attempt to use restroom again, patient declines. Patient states he has had trouble moving bowels for a long time and that he takes exlax and it does nothing. RN hangs IV tylenol and ice pack applied. Patient states he has a twinge of pain in hip, RN expresses that is normal. RN asks if patient needs anything else and he tells RN again about the twinge of pain. RN reiterates this is normal and that the tylenol and ice will help. Patient agreeable. [Electronically Signed on: 11/09/2023 04:20 EST] Anne Boyd RN [Verified on: 11/09/2023 04:20 EST] Anne Boyd RN [facility] Anesthesia Noteon 11-08-2023 Anesthesia Note Patient: ROBBIN BARTLETT Age: 63 years Sex: MALE : 1960 Associated Diagnoses: None Author: Pérez Maguire MD Postoperative Information Post Operative Note Health Status Allergies: Allergic Reactions (All) Unknown Penicillin- No reactions were documented. Tetanus toxoid- No reactions were documented. Problem list (past medical history): All Problems Diabetes / SNOMED CT 916329951 / Confirmed Acute postoperative pain of right hip / SNOMED CT 86623562 / Confirmed Apnea, sleep / SNOMED CT 685632771 / Confirmed Physical Examination VS/Measurements Vital Signs (last 24 hrs) Last Charted Heart Rate Monitored 90 bpm (NOV 08:) Resp Rate L 12 br/min (NOV 08:) SBP 138 mmHg (NOV 08:) DBP 71 mmHg (NOV 08:) Assessment Anesthetic outcome No anesthetic complications noted. Plan Transfer/ Discharge: To nursing unit, pt did well. pain controllled.. no n/v. hd stable. somewhat confused but clearing a bit now. answers questions appropriately and follows commands but repeatedly pulling at monitors trying to get them off. cardiac and resp at baseline. volume status adequate. Condition good. [Electronically Signed on: 11/08/2023 13:55 EST] Pérez Maguire MD [Verified on: 11/08/2023 13:55 EST] Pérez Maguire MD [facility] Anesthesia Note Patient: ROBBIN BARTLETT Age: 63 years Sex: MALE : 1960 Associated Diagnoses: None Author: Richmond Spencer MD Preoperative Information Anesthesia history: Patient history: No difficult intubation, No malignant hyperthermia. Family history: No malignant hyperthermia. Review of Systems Respiratory: Apnea, rarely uses CPAP, No shortness of breath. Cardiovascular: No known [place], No chest pain. Gastrointestinal: No heartburn. Musculoskeletal: s/p cervical disc surgery. Health Status Allergies: Allergic Reactions (All) Unknown Penicillin- No reactions were documented. Tetanus toxoid- No reactions were documented. Current medications: Home Medications (15) Active atorvastatin 40 mg oral tablet 40 mg = 1 tab(s), PO, Daily fexofenadine 180 mg oral tablet 180 mg = 1 tab(s), PO, Daily fluocinonide 0.05% topical solution furosemide 20 mg oral tablet 20 mg = 1 tab(s), PO, Daily gabapentin 300 mg oral capsule 300 mg = 1 cap(s), PO, TID GlyBURIDE (Eqv-Micronase) 5 mg oral tablet HumaLOG Mix 75/25 KwikPen subcutaneous suspension 53 unit(s), Subcutaneous, Daily ibuprofen 600 mg oral tablet lamoTRIgine 150 mg oral tablet 150 mg = 1 tab(s), PO, BID Latuda 20 mg oral tablet Latuda 20 mg oral tablet 20 mg = 1 tab(s), PO, Daily Latuda 80 mg oral tablet losartan 50 mg oral tablet 50 mg = 1 tab(s), PO, Daily metFORMIN 1000 mg oral tablet 1,000 mg = 1 tab(s), PO, BID Trulicity Pen 1.5 mg/0.5 mL subcutaneous solution 1.5 mg = 0.5 mL, SubQ, qWeek Problem list (past medical history): All Problems Apnea, sleep / SNOMED CT 163619855 / Confirmed Histories Family History: Acoustic neuroma Grandparent High blood pressure Father Heart attack Father Procedure history: Arthroscopy (50316048). Comments: 10/12/2023 13:07 Elizabeth Marin RN right knee Bilateral cataracts (263922654). Cervical disc disease (5312360163). Comments: 10/12/2023 13:08 Elizabeth Marin RN disc repair in neck History of tonsillectomy (1253331990). Colonoscopy (546337662). Bilateral inguinal hernia (665387728). Appendectomy (155228177). Arthroscopy of shoulder (186918855). Comments: 10/12/2023 13:09 Elizabeth Marin RN left x 3 Social History Electronic Cigarette/Vaping Assessment Electronic Cigarette Use: Never. Alcohol Assessment Use: Past. Tobacco Assessment Former tobacco user Tobacco Use:. Comment: quit 35 year ago Substance Abuse Assessment Substance use: Never. . Physical Examination VS/Measurements Vital Signs (last 24 hrs) Last Charted Heart Rate Monitored 82 bpm (NOV 08 10:25) Resp Rate 16 br/min (NOV 08 10:25) SBP H 150 mmHg (NOV 08 10:25) DBP 87 mmHg (NOV 08 10:) General: Alert and oriented, No acute distress. Airway: Mallampati classification: III (soft palate, base of uvula visible). Mouth: Teeth ( Within normal limits ), small mouth opening and large neck tissue with short thyromental distance. Respiratory: Respirations are non-labored. Cardiovascular: Normal rate. Review / Management Results review: Lab results 11/08/2023 9:56 EST Glucose, POC 163 mg/dL HI 11/08/2023 9:13 EST Glucose, POC 198 mg/dL HI 11/08/2023 8:30 EST Glucose, POC 213 mg/dL MD . Laboratory Results ECG interpretation: SR with 1 deg AVB. Plan [employer] [employer]#(A SA) physical status classification: Class III. Anesthetic Preoperative Plan Anesthesia: General. , Regional fascia iliaca block. Anesthetic plan, risks, benefits, and alternatives discussed with the patient and/or family. Patient verbalized understanding. Informed consent was given. Consent was signed by the patient. [Electronically Signed on: 11/08/2023 11:19 EST] Richmond Specner MD [Verified on: 11/08/2023 11:19 EST] Richmond Spencer MD [facility] MAGR Intraoperative Recordon 11-08-2023 MAGR Intraoperative Record MAGR Intra-Op Record Summary Primary Physician: JACLYN SNELL DO Finalized Date/Time: 11/08/23 13:46:12 Pt. Name: TRIROBBIN/Sex: 1960 MALE Med Rec #: [id number] Physician: JACLYN SNELL DO Financial #: [id number] Pt. Type: D Room/Bed: [facility]/ Admit/Disch: 12/27/23 08:03:44 - Institution: Case Times MAGR Entry 1 Patient In Room Time 11/08/23 10:27:00 Out Room Time 11/08/23 13:36:00 Anesthesia Start Time 11/08/23 10:27:00 Stop Time 11/08/23 13:36:00 Surgery Start Time 11/08/23 11:15:00 Stop Time 11/08/23 13:25:00 Last Modified By: Delores Ingram RN 11/08/23 13:45:41 Case Attendance MAGR Entry 1 Entry 2 Entry 3 Case Attendee JACLYN SNELL Satya S MD Myers, Debra RN Role Performed Surgeon - Primary Anesthesiologist of Social Security Assessor Record Time In 11/08/23 10:27:00 11/08/23 10:27:00 11/08/23 10:27:00 Time Out 11/08/23 13:21:00 11/08/23 11:10:00 11/08/23 13:36:00 Procedure Arthroplasty Total Arthroplasty Total Arthroplasty Total Hip(Right) Hip(Right) Hip(Right) Last Modified By: Delores Ingram RN, Debra RN Myers, Debra RN 11/08/23 13:45:46 11/08/23 13:45:46 11/08/23 13:45:46 Entry 4 Entry 5 Entry 6 Case Attendee Kathleen Rodriguez RN Elenita Rodriguez DEBONER Vera Thrasher DEBONER Role Performed Duck Farmer Duck Farmer Scrub Personnel Time In 11/08/23 10:27:00 11/08/23 10:27:00 11/08/23 10:27:00 Time Out 11/08/23 13:36:00 11/08/23 13:36:00 11/08/23 13:36:00 Procedure Arthroplasty Total Arthroplasty Total Arthroplasty Total Hip(Right) Hip(Right) Hip(Right) Last Modified By: Delores Ingram RN, Debra RN Myers, Debra RN 11/08/23 13:45:46 11/08/23 13:45:46 11/08/23 13:45:46 Entry 7 Case Attendee Pérez Maguire MD Role Performed Anesthesiologist of Record Time In 11/08/23 11:10:00 Time Out 11/08/23 13:36:00 Procedure Arthroplasty Total Hip(Right) Last Modified By: Delores Ingram RN 11/08/23 13:45:46 Surgical Procedures MAGR Pre-Care Text: A.20 Verifies operative procedure, surgical site, and laterality Im.150 Develops individualized plan of care Entry 1 Procedure Arthroplasty Total Hip Primary Procedure Yes Primary Surgeon JACLYN SNELL DO Modifiers Right Surgeon Comment RIGHT TOTAL HIP - DEPUY Start 11/08/23 11:15:00 Stop 11/08/23 13:25:00 Anesthesia Type General Surgical Service Orthopedics Wound Class Clean Technique Details Closure Technique Primary Entire procedure No was performed via laparoscope or robotic assistance Last Modified By: Delores Ingram RN 11/08/23 13:46:01 Post-Care Text: O.730 The patient's care is consistent with the individualized perioperative plan of care General Case Data MAGR Pre-Care Text: A.350.1 Classifies surgical wound Entry 1 Case Information OR MAGR OR 01 Case Level Level 5 Wound Class Clean Specialty Orthopedics ASA Class 3 Diagnosis Preop Diagnosis DJD Postop Same As Preop Yes Postop Diagnosis DJD Blunt or No Is the procedure No penetrating injury considered occured prior to Emergent/Urgent? the start of the procedure: Last Modified By: Delores Ingram RN 11/08/23 11:19:52 Post-Care Text: O.760 Patient receives consistent and comparable care regardless of the setting Time Out MAGR Entry 1 Procedure(s) Arthroplasty Total Hip(Right) Time Out Checklist Verifications Patient Verified Yes Allergies Verified Yes Procedure to be Yes Presence of Yes Performed Verified Necessary with Consent Procedural Equipment, Devices, and Implants Verified Site Verification, Yes Site Marking, Site Marking Alternative, and/or Site Marking Exception in Accordance with Facility Policy Anesthesia Review Antibiotic Received Yes All Anesthesia Yes Within an Concerns Addressed Appropriate Time Interval Prior to Surgical Incision Surgeon Review Anticipated Blood Yes Loss Risk, Expected Case Duration, and Critical and Non-Routine Steps to be Performed Addressed Nurse Review Team Introductions Yes Equipment Concerns Yes Completed Addressed Fall Risk Concerns Yes Fire Risk Yes Addressed Assessment Completed and Interventions Performed Skin Assessment Yes Diagnostic and Yes Concerns Addressed Radiological Test Results Displayed are Appropriate and Labeled Skin Prep Allowed Yes Sterilization Yes to Dry Prior to Concerns Addressed Incision Venous Yes Laser Safety Yes Thromboembolism Measures Implemented Prophylaxis Ordered Latex Precautions Yes Other Concerns Yes Implemented Addressed Time Out JACLYN SNELL DO, Time Out Time 11/08/23 11:14:00 Participants Delores Ingram RN, Kathleen Rodriguez RN, Elenita Rodriguez DEBONER, Vera Thrasher CST, Pérez Maguire MD Last Modified By: Delores Ingram RN 11/08/23 11:19:45 Patient Positioning MAGR Pre-Care Text: A.280 Identifies baseline musculoskeletal status Im.40 Positions the patient Im. (more content not included)... Normal [facility] MAGR Intraoperative Record MAGR Intra-Op Record Summary Primary Physician: Finalized Date/Time: 11/08/23 10:50:00 Pt. Name: ROBBIN BARTLETT /Sex: 1960 MALE Med Rec #: [id number] Physician: JACLYN SNELL DO Financial #: [id number] Pt. Type: D Room/Bed: / Admit/Disch: 11/08/23 08:03:44 - Institution: Case Times MAGR Entry 1 Patient In Room Time 11/08/23 10:10:00 Out Room Time 11/08/23 10:25:00 Anesthesia Start Time 11/08/23 10:13:00 Stop Time 11/08/23 10:17:00 Surgery Start Time 11/08/23 10:14:00 Stop Time 11/08/23 10:17:00 Last Modified By: Kathleen Buckner RN 11/08/23 10:37:12 Case Attendance MAGR Entry 1 Entry 2 Entry 3 Case Attendee Richmond Spencer MD, Laura RN Slauterbeck, Linda RN Role Performed Anesthesiologist of Social Security Assessor Social Security Assessor Record Time In 11/08/23 10:10:00 11/08/23 10:10:00 11/08/23 10:10:00 Time Out 11/08/23 10:20:00 11/08/23 10:20:00 11/08/23 10:25:00 Procedure FASCIA ILIACA FASCIA ILIACA FASCIA ILIACA BLOCK(Right) BLOCK(Right) BLOCK(Right) Last Modified By: Kathleen Buckner RN, Linda RN Slauterbeck, Linda RN 11/08/23 10:40:12 11/08/23 10:40:12 11/08/23 10:40:12 Surgical Procedures MAGR Pre-Care Text: A.20 Verifies operative procedure, surgical site, and laterality Im.150 Develops individualized plan of care Entry 1 Procedure FASCIA ILIACA BLOCK Primary Procedure Yes Primary Surgeon Richmond Spencer MD Modifiers Right Surgeon Comment BLOCK PRIOR TO RIGHT Start 11/08/23 10:14:00 TOTAL KNEE Stop 11/08/23 10:17:00 Anesthesia Type Regional Block Surgical Service Anesthesia Wound Class Clean Technique Details Closure Technique Primary Entire procedure No was performed via laparoscope or robotic assistance Last Modified By: Kathleen Buckner RN 11/08/23 10:40:32 Post-Care Text: O.730 The patient's care is consistent with the individualized perioperative plan of care General Case Data MAGR Pre-Care Text: A.350.1 Classifies surgical wound Entry 1 Case Information OR MAGR Proc Room Case Level None Wound Class Clean Specialty Anesthesia ASA Class 3 Diagnosis Preop Diagnosis BLOCK PRIOR TO RIGHT Postop Same As Preop Yes TOTAL HIP Postop Diagnosis BLOCK PRIOR TO RIGHT TOTAL HIP Blunt or No Is the procedure No penetrating injury considered occured prior to Emergent/Urgent? the start of the procedure: Last Modified By: Kathleen Buckner RN 11/08/23 10:41:03 Post-Care Text: O.760 Patient receives consistent and comparable care regardless of the setting Time Out MAGR Entry 1 Procedure(s) FASCIA ILIACA BLOCK(Right) Time Out Checklist Verifications Patient Verified Yes Allergies Verified Yes Procedure to be Yes Presence of Yes Performed Verified Necessary with Consent Procedural Equipment, Devices, and Implants Verified Site Verification, Yes Site Marking, Site Marking Alternative, and/or Site Marking Exception in Accordance with Facility Policy Anesthesia Review Antibiotic Received n/a All Anesthesia Yes Within an Concerns Addressed Appropriate Time Interval Prior to Surgical Incision Surgeon Review Anticipated Blood Yes Loss Risk, Expected Case Duration, and Critical and Non-Routine Steps to be Performed Addressed Nurse Review Team Introductions Yes Equipment Concerns Yes Completed Addressed Fall Risk Concerns Yes Fire Risk Yes Addressed Assessment Completed and Interventions Performed Skin Assessment Yes Diagnostic and Yes Concerns Addressed Radiological Test Results Displayed are Appropriate and Labeled Skin Prep Allowed Yes Sterilization Yes to Dry Prior to Concerns Addressed Incision Venous Yes Laser Safety Yes Thromboembolism Measures Implemented Prophylaxis Ordered Latex Precautions Yes Other Concerns n/a Implemented Addressed Time Out Richmond Spencer MD, Time Out Time 11/08/23 10:10:00 Participants Elizabeth Brandt RN, Kathleen Buckner RN Last Modified By: Kathleen Buckner RN 11/08/23 10:42:26 Patient Positioning MAGR Pre-Care Text: A.280 Identifies baseline musculoskeletal status Im.40 Positions the patient Im.80 Applies safety devices Entry 1 Procedure FASCIA ILIACA Body Position Semi-Fowlers BLOCK(Right) Left Arm Position Resting at Side Right Arm Position Resting at Side Left Leg Position Extended Right Leg Position Extended Feet Uncrossed? Yes Press Points Checked Yes Outcome Met (O.80) Yes Last Modified By: Kathleen Buckner RN 11/08/23 10:43:06 Post-Care Text: E.290 Evaluates musculoskeletal status O.80 Patient is free from signs and symptoms of injury related to positioning Skin Prep MAGR Pre-Care Text: A.30 Verifies allergies Im.270 Performs skin preparation Im.270.1 Implements protective measures to prevent skin and tissue injury due to chemical sources Entry 1 Skin Prep Syntegrity Prep Agents (Im.270) Chlorhexidine Gluconate Prep By Gorbrian (more content not included)... [facility] MAGR PACU Recordon MAGR PACU Record MAGR PACU Record Summary Primary Physician: JACLYN SNELL DO Finalized Date/Time: 11/08/23 15:15:10 Pt. Name: ROBBIN BARTLETT Roseanne/Sex: 1960 MALE Med Rec #: [id number] Physician: JACLYN SNELL DO Financial #: [id number] Pt. Type: O Room/Bed: [facility]/ Admit/Disch: 11/08/23 08:03:44 - Institution: PACU Case Times MAGR Entry 1 In PACU I 11/08/23 13:38:00 Discharge from PACU 11/08/23 14:49:00 I Last Modified By: Joaquina Raymond RN 11/08/23 15:15:09 Finalized By: Joaquina Raymond RN Document Signatures Signed By: Joaquina Raymond RN 11/08/23 [facility] 01-09-[facility]23 MAGR Preoperative Record MAGR Pre-Op Record Summary Primary Physician: JACLYN SNELL DO Finalized Date/Time: 11/08/23 15:14:54 Pt. Name: TRI ROBBIN Jain./Sex: 1960 MALE Med Rec #: [id number] Physician: JACLYN SNELL DO Financial #: [id number] Pt. Type: O Room/Bed: 221/1 Admit/Disch: 11/08/23 08:03:44 - Institution: Pre-Op Case Times MAGR Pre-Care Text: Patient will be optimally prepared for surgery. Patient is free from s/s of injury. Provide information to patient/family related to plan of care. Verify patient allergies. Confirm identity and verify consent before the operative or invasive procedure. Entry 1 Patient Arrival Time 11/08/23 08:14:00 Preop Departure 11/08/23 10:25:00 Last Modified By: Joaquina Raymond RN 11/08/23 15:14:51 Post-Care Text: Patient is prepared mentally and physically and is ready for surgery. The patient remains free from s/s of injury. Patient/family express understanding of plan of care and participate in decisions affecting his or her perioperrative plan of care. Allergies documented appropriately. Patient identifiers and consent correct. General Comments: Pt arrives to W ambulatory. Denies CP, cough, cold, COVID like sx. Pt is diabetic and has BELLA. No hx of pacer/defib. Pt verbalizes understanding of post op anesthesia orders including no driving for 24h. Finalized By: Joaquina Raymond RN Document Signatures Signed By: Joaquina Raymond RN 11/08/23 15:14 [facility] MAGR Preoperative Record MAGR Pre-Op Record Summary Primary Physician: Chaim Olivarez MD Finalized Date/Time: 11/08/23 10:36:16 Pt. Name: TRI ROBBIN Cronin/Sex: 1960 MALE Med Rec #: [id number] Physician: JACLYN SNELL DO Financial #: [id number] Pt. Type: D Room/Bed: / Admit/Disch: 11/08/23 08:03:44 - Institution: Pre-Op Case Times MAGR Pre-Care Text: Patient will be optimally prepared for surgery. Patient is free from s/s of injury. Provide information to patient/family related to plan of care. Verify patient allergies. Confirm identity and verify consent before the operative or invasive procedure. Entry 1 Patient Arrival Time 11/08/23 10:10:00 Preop Departure 11/08/23 10:25:00 Last Modified By: Kathleen Buckner RN 11/08/23 10:36:09 Post-Care Text: Patient is prepared mentally and physically and is ready for surgery. The patient remains free from s/s of injury. Patient/family express understanding of plan of care and participate in decisions affecting his or her perioperrative plan of care. Allergies documented appropriately. Patient identifiers and consent correct. Finalized By: Kathleen Buckner RN Document Signatures Signed By: Kathleen Buckner RN 11/08/23 10:36 [facility] Nutrition Noteon 11-08-2023 Nutrition Note Pt admitted for scheduled Rt hip surgery; currently NPO. Usual post op vitamins/minerals ordered. Suspect diet to be advanced soon. Pt does have DM, BS today 163-290mg/dl H w/ 10/12 pre-op labs viewed noting hgbA1C of 6.8%, Cr 1.59H, GFR 44L, uncertain Pts baseline. No chewing/swallowing problems identified. Once diet advanced, recommend 2000CD. Will monitor need for additional low Na restrictions. Overall Pt appears at low nutrition risk. [facility] Nutrition Note Chart reviewed; 63 yo male diagnosed with R PATTI; currently NPO post-op; no recent weight changes noted; no difficulties with chew/swallow identified on admit; besides being 63 yo and post-op patient appears at low nutrition risk; recommend advance diet as ary to 2200 kcals DM with glucerna 1.2 po BID to max intake; will monitor for diet advance, assist with changes prn. ts [facility] POCT Glucose Levelon 023 Glucose [Mass/Vol] 276 mg/dL High 74-118 [facility] Comment on above: Performed By: #### [id number] #### [facility] (DEFAULT) [address] [place] [address] Glucose [Mass/Vol] 306 mg/dL High 74-118 [facility] Comment on above: Performed By: #### 4 [id number] #### [facility] (DEFAULT) [address] [place] [address] Glucose [Mass/Vol] 290 mg/dL High [address] Comment on above: Performed By: #### 4 [id number] #### [facility] (DEFAULT) [address] [place] [address] Glucose [Mass/Vol] 301 mg/dL High [address] [facility] Comment on above: Performed By: #### 4 [id number] #### [facility] (DEFAULT) [address] [place] [address] Glucose [Mass/Vol] 260 mg/dL High [address] [facility] Comment on above: Performed By: #### 4 [id number] #### [facility] (DEFAULT) [address] [place] [address] Glucose [Mass/Vol] 163 mg/dL High [address] Comment on above: Performed By: #### 4 [id number] #### [facility] (DEFAULT) [address] [place] [address] Glucose [Mass/Vol] 198 mg/dL High [address] [facility] Comment on above: Performed By: #### 4 [id number] #### [facility] (DEFAULT) [address] [place] [address] Glucose [Mass/Vol] 213 mg/dL High [address] [facility] Comment on above: Performed By: #### 4 [id number] ####[facility] (DEFAULT)[address] [place] [address] XR Hip 1 View Rt w/ Pelvison 11-08-2023 XR Hip 1 View Rt w/ Pelvis CLINICAL HISTORY: Right hip replacement TECHNIQUE: 2 views right hip COMPARISON: 10/12/2023. RESULT: Interval right total hip arthroplasty. Soft tissue gas and edema about the hip from the recent procedure. Visualized bony pelvis grossly intact and unchanged. Degenerative changes left hip. IMPRESSION: Right hip arthroplasty. Final Signed (Electronic Signature): Jerald Meyers MD 11/09/23 12:23 p Technologist: SLM,K [facility] Progress Note - Nurseon 12-2 Progress Note - Nurse spoke to pt on phone, instructed to be NPO after midnight, arrival time, suggestions of belongings to bring, pt verbalizes understanding [Electronically Signed on: 11/07/2023 10:35 EST] Kathleen Buckner RN [Verified on: 11/07/2023 10:35 EST] Kathleen Buckner RN [facility] Coding Summaryon 10-16-2023 Coding Summary HTMLBase 64 ZakypywaYOe0jWr+PGhl YWQ+MJ7WSEQnC90pqQPf dV7cB8PCONyYEmvwJUIS QEoPMgZzpwVlAS8hjZUe ZXJu IC8+IF2wDHIdKmcyxMUm r5L9cZK3J35drq0kKYlm bDG4ZHXzMsKfmsxlv9np hAj6RVpbGlxjSxPy NWLqfK97ERU3nH46Ge81 pRMlbDPez3wpvBj7LnTf IPWuNIE2mQjeQXrvt4Nc WJRfF74kiCWvm4Q0 IGNvbGxhcHNlOyBlbXB0 mZ1iLKwmzqxoj6zbrkbz Mnm1ij89lOVeo7T9eMH0 H6TxvmA4JMJxuVNp XnnxnIYRyV8yxxrzc8ln mswcSfWtIKKeYZv8DPn5 AHDvfOssJoWrQL08YCR3 FKQwtoFpT5AfRHGd fSfbCrJ2g3B1Hl2PC2KC IjkrG5WSIKABXWkglII+ ZL29mk73E9HuIhheQtu9 HMGnXCM1xRO7iZ1y YXOsEFiji3H1vCX8U9Vk euCvrs9nx9nmAVEbZFan T40mbKZap8A9XMLpzPN0 WOTfqWeaFnOyyM20 Oyc+WTTmrSmrb4CtHgle l1rqe3ecqLi6NjkuPHZz xkSogEnfJOS9v7EhKv3n RRHwnGZ1dXP6wX2y IkNmBjD9TNehX723NiXz lNMiJuwlG26cC0DcbSW+ RAAcVuz8YTYevUrsSY8h Z4RtJCAituedhKIt nGpfHE2xBEAmifrqKCDr jM9sGBCbY3z8CmBnNpE4 YMzqR1ZyFTJpprfoOw89 tO7gYrEoEzU3UFap A6IescT1CROroDYkNSee OWN7R63wh9F5HYJmTQEk RIT5hCI8zZ0biIumfdzp bGVmdDsgdmVydGlj VTyuEZkbA433TMBciWdg PkNvZGluZyBEYXRlOiAg MTIvMDQvMjAyMzwvdGQ+ BMYhKFK3cDelHVGg fRLxLTzxKr5nsEbbyTjq IC9tVNComrveOIBgiM6h NAPtsOQimWcbOC7mISRl tubub726HnEfBUV9 LBDpdHZkG7FciI1jIrSp YXSdIFTuT9TunRKaFIdf D168JMnrDmH4GBZrwdCt T3SlSEQevRawPfR4 v5N0Qr6Ns9DerhmmR0Ew bTKgQlJlAvvwXJl9Z5Vl PjwvdHI+RU08KTMsOT84 KEz1XMV7gWqzXCwu QUZfZ5RvjS4qSaXtXOCr ZGRkOyc+PHRhYmxlIHdp ZHRoPScxMDAlJyBzdHls PR4oBi5jONByUYJh kXncdNJuPoLis8jiNNVp HXrgHR9tnRmsX1SilDJ6 TRNkv0b8Fh93U67pT9Rz dXA+RPPwfDT0zKV3 kM8uRwQzHfL2CLqiT362 SqFrhSHdInfoy6ffi0vf gYo2LaH1CYWvikKloLbd MMM7v8OxVh76J42c IHdpZHRoPSIxNSUiIHZh rPbcod0pfH7eWm2+PGNv lTD7vPH5eM8hBrDjOnW5 SCihO255GqVagATx Safpm3uhq9lepYl8BsGs KLEkfhRzlHtnZFW9j6Jf Px53U8TzhNjgd8FhWml9 uk03fBNfq6C3tAO2 L3RaECHdvdrgvSVxqNpo TT6nATOzkcbvJANqcZ4v JZBgB0a2YpHpUfS8BQsi X4NiodS5JQNvyXAg OXHwoCSWuV1aqmcto3hx ckztXiRbYDUgLXb3DTe3 GNNfpQbnRaVlIWX1UiU1 VVP1wMCzxP6gnAkc gguocX7tLan+YRI7sSDm xLEBKW0iRiqilYM+PHRk WKH0hCwnMBykIHBnnH5b UDOhO8p5AvUnHyZ7 LRnbB8LmhwH5VVTuqLXh EJGgwJCIjT5ugkmhc4ir ciwmUgJnSCHvMSy2LBt8 LWFsaWduOiBsZWZ0 IcB1DZB3fIRykR2qjSuf ogwliR7lHcl+QmlydGgg IEO0UTh1W6XrUsa5NHHy zIwsXS1duNAqUFrg Yb7fnKuokNwxML8jBSFb okday271YbHla8yzQLUo fEJlYOqhSVC3H78bl5M0 EWJhTBXjBPC4kAA9 lB2nbHnbthhysWBgwDth xgSsiRgwOCbfYJhhE083 YQVaeRpoMhMqQBe8S5Zl Mxv4HIHusDkkVO7q kZCmRZakMf4xtWpeyRgm OM9eLZCezixte951QgAw n7qgYUOlfMHyUOliVUJ6 Z03rl7H6TPNfUJJw OKU7aIX5zG2ioTfodmxj bGVmdDsgdmVydGljYWwt EYeqW937AFScxOpvZjYl hSi1W9JmElx9VDYk fPwrWR6owUPsMAmiXs0m yKoyqOhxDA9vKQWjbgjj h551PlSti2hyVMUxuGZt TOvdUYK4K50nw1V2 SRLtKHChNSW5cPM3sV7i bGlnbjogbGVmdDsgdmVy dGjyWSvcDBgtF146JCOo cDsnPlBhdGllbnQg CGxvQOo6H7FrPocwaEE+ NN67MHQxNE26eGQukYTr c3kfjOl0QoGmPTVoTWH4 qAemHAqox0XgFHVi O35hxAClb0Q0DJBmbJwp iWTdQsLdjTL2aL5lYUqr mcvkq4rotxmpFctrp5jv hi70yI03D93nZTik ZHRoPSIzMCUiIHZhbGln nh9ihE5eYx0+PGNvbCB3 eGZ4qK4nLZCiXkZ6QQfo F200AfSazISpNaqp u0eca4qeqSj2XiO0DDLk plIarVlzSDH7s6RcNt45 B96xKXjtYJRxWEOiMSHq LMOqhBhqej1kkP3x Ii8+EPJwtSS5vUS4zP8x SbNfOtT1TWihF953PqBz eFHrKmbhX16wG1GhnBN+ JVLfRoc2TMRxoJmg NE9ffXYpELcnXy7tCUJ5 QoEoWkGbPEeaD1HyEGVq balxfxvtkTE3UORiOQHi aC62Uv6leOqbLPZf xKYYoL6yfcjba2ibhnwr CzZeFGOcWJq6IVx0WNYl vXvsVlEvJHT0XgB4HWL1 wPZxqS0llGbvoufm dA5rE2BvZCSoemhzPg16 vX8gSuBrUuY4QNpjJbv+ A2TKDc0EJkfeS9VXDVMw OOfEFUIIORQGAX99 EU21sJChj8P4dCX1Z6Ah PNYufhklmnhokVO4ICIr WDBumN56oTCcOIlnIn3w z5D7b100JVBdLQWx oQ86Tp3jnJuaMZXlpHRU rH0cmbswk7fescexLfLo TEIePRi7ZZz8AXSmbKmk PiDvQKI7FbS5UFK1 bODfxQ4okEwwakcgvU8e Oyc+REFlYoLpSPj8QOwy dGQ+JYOnIOK0qSghFMmo JHHmyA9nACJnH5v0 VgXbRpA4AMyvC4BvNBDz yikgCi96uC1cGcPiYbG5 MNpaJ9XfgcQ8QKYveCZa RRsqNFV8R10lc3E5 OLCgCVNiDEE8yFJ6qH9e bGlnbjogbGVmdDsgdmVy pAbiWYvmURsxQ394IDWj vCakNfK0WQqrHRUt BN79UB15jHDic4O8jBV6 T4DqSIKtqwpwbmvogYJ9 DIKyDVMfaW78oCDdBTcw Qw0jd4Y9u713IYZm MBXtiG84Gu7fxAveSRRo jZIXsY4rllnrl7rgszkx MlLyLGBaMFa7USw6QSJw rYqrEkCxJGG9LkZ6 JIV2pRGgnE0peOpodufy kJ6nCfs+TUFMRTwvdGQ+ RURbHAO7mVtsLJknOIOe jA7qXPYlX2x8YjJe YnT1GEkqK3XdCTCxbydl Sk44yI7wOqObZyK9RGtd O8CqrjK4UIEdcXJvPDkv CBK4A55oj0A5QAVo KDHfTJO7qTM2wY8tiSrz bjogbGVmdDsgdmVydGlj EUbnHMrvX276IETvjGhl Yu1NPH45HF05C0Tc PjwvdGFibGU+PHRhYmxl IHdpZHRoPScxMDAlJyBz bWzmBP8pWw0aMSPlGSSw sVwlbZTfYbOzb0it GHAmYGxyQC6irKorR3Ju yTV0ORJex8l2Zc98L86q J3IsbIR+XSXzbTW1sED4 dQ4oBkWbJbM6KEvi N084EsYthCAhRrxad2yn m5jjhPv4OyVyJAHoknCj gFggRLV2l2PyHo41M20d IHdpZHRoPSIyMCUi WWQxlVgaxg2arY7vVa1+ FQNkrLY2bFY1sU3xNyQb TaZ3LJvbK742ZqXrbZFt MsnhR36mP8ZrmPC+ VQPpDas1EZZurGfaRS6a dJKnKUkeTv2tALO4ZgTs RfTcJSolH3HvCTElzrji lgyahPS9VWHcHHMl fG71Sg1lrKmjTe9bMRIp QEW6CSYqmVQhT9TfjN6x ElOnVICnXHWjD1QdlLQp IOcyN270TQevHgV7 AZHvstTwA1DyTKFltNsz GnO0d3N1Qa2KgRdgpBRj GF6kOxYrPSw0D4CiVym6 ODEmfQrqWT7jmUTu TFdiEr6xpLorvUogFS3p AZYpfihhn263ClNzo5ts CJGffVMeOFajIXH9W67f u9E6QMWpBLLbESG5 kRI8xZ2ejEmlsqqfcQTt dDsgdmVydGljYWwtYWxp N222RTNtqBjoJvNKXik9 W1TjFit3FXAwoAkz WZ5xkYSvSXqnSo8hsNcb iFdzIP1aSVBqetabo692 VtSbm1lfVGPzpXTpZVps ECD0N19al4Z5JCBb XIWlVIU2xRG2lJ9glDcy bjogbGVmdDsgdmVydGlj BXeyLSdbY577CNUenXer Ck3TZvl8H1WkRth0 NLDdqXvyVV7lgSKuKGch Mz9avPkxxQtdDU7mXQJj adrby284PuNrx1gtGLOc kHQxWWikEUQ6E53a r1L4ONJtUJVfQXG3pKO9 uX4tiPbgqvybnFLxqYju eePjfVsvCUgnIRvvF060 IHRvcDsnPlBheWVy OjwvdGQ+WG85qs00K7Md MtinCbt6TUNgEEV9rMP9 gP4wQLKiYBxzl1F7uAA4 W6IdvkBanc8nu6fh YXB (more content not included)... [facility] Progress Note - Nurseon Progress Note - Nurse PAT reviewed by Dr. Zepeda. Pt to hold Trulicity greater than 7 days prior to surgery. Verbalized instructions to pt via phone, pt's last routine dose of Trulicity to be on 10/29/23. Pt states understanding. [Electronically Signed on: 10/16/2023 12:38 EST] Jay Bell RN [Verified on: 10/16/2023 12:38 EST] Jay Bell RN [facility] Provider Orderson 10-13-2023 Provider Orders [id number] .[id number] Normal [facility] .Auto Diff 1on 10-12-2023 Auto Denali % 7 % Normal 1-12 [facility] Comment on above: Performed By: #### 4 [id number] #### [facility] (DEFAULT) [address] [place] [address] 10702 Baso Abs# 0.0 x10 Normal 0.0-0.2 [facility] Comment on above: Performed By: #### 4 [id number] #### [facility] (DEFAULT) [address] [place] [address] 52920 Basophils/100 WBC (Bld) 0.3 % Normal 0.2-2.0 [facility] Comment on above: Performed By: #### 4 [id number] #### [facility] (DEFAULT) [address] [place] [address] 97800 Eos Abs# 0.1 x10 Normal 0.0-0.4 [facility] Comment on above: Performed By: #### 4 [id number] #### [facility] (DEFAULT) [address] [place] [address] 33960 Eosinophils/100 WBC (Bld) 1.4 % Normal 0.9-4.0 [facility] Comment on above: Performed By: #### 4 [id number] #### [facility] (DEFAULT) [address] [place] [address] 97135 Lymph Abs# 1.1 x10 Low 1.3-2.9 [facility] Comment on above: Performed By: #### 4 [id number] #### [facility] (DEFAULT) [address] [place] [address] 36646 Lymphocytes/100 WBC (Bld) 16 % Normal 14-48 [facility] Comment on above: Performed By: #### 4 [id number] #### [facility] (DEFAULT) [address] [place] [address] 46525 Denali Abs# 0.5 x10 Normal 0.0-0.8 [facility] Comment on above: Performed By: #### 4 [id number] #### [facility] (DEFAULT) [address] [place] [address] Neut Abs# 5.0 x10 Normal 1.5-9.2 [facility] Comment on above: Performed By: #### 4 [id number] #### [facility] (DEFAULT) [address] [place] [address] Neutrophils/100 WBC (Bld) 75 % Normal 44-88 [facility] Comment on above: Performed By: #### 4 [id number] #### [facility] (DEFAULT) [address] [place] [address] BMP Standardon 10-12-2023 eGFR Non AA 44 mL/min/1.73m2 Invalid Interpretation Code [facility] Comment on above: Performed By: #### 4 [id number] #### [facility] (DEFAULT) [address] [place] [address] eGFR AA 53 mL/min/1.73m2 Invalid Interpretation Code [facility] Comment on above: Performed By: #### 4 [id number] #### [facility] (DEFAULT) [address] [place] [address] 73002 Anion gap [Moles/Vol] 12.9 mmol/L Normal 5.0-19.0 [facility] Comment on above: Performed By: #### 4 [id number] #### [facility] (DEFAULT) [address] [place] [address] 07281 Calcium [Mass/Vol] 8.8 mg/dL Low 8.9-10.3 [facility] Comment on above: Performed By: #### 4 [id number] #### [facility] (DEFAULT) [address] [place] [address] 70763 Chloride [Moles/Vol] 104 mmol/L Normal 101-111 [facility] Comment on above: Performed By: #### 4 [id number] #### [facility] (DEFAULT) [address] [place] [address] 26392 CO2 [Moles/Vol] 24 mmol/L Normal 21-32 [facility] Comment on above: Performed By: #### 4 [id number] #### [facility] (DEFAULT) [address] [place] [address] 55974 Creatinine [Mass/Vol] 1.59 mg/dL High 0.90-1.30 [facility] Comment on above: Performed By: #### 4 [id number] #### [facility] (DEFAULT) [address] [place] [address] 66933 Glucose [Mass/Vol] 224.0 mg/dL High 74.0-118.0 [facility] Comment on above: Performed By: #### 4 [id number] #### [facility] (DEFAULT) [address] [place] [address] 31432 Osmolality 284 mOsm/L Invalid Interpretation Code [facility] Comment on above: Performed By: #### 4 [id number] #### [facility] (DEFAULT) [address] [place] [address] 79284 Potassium [Moles/Vol] 4.9 mmol/L Normal 3.6-5.1 [facility] Comment on above: Performed By: #### 4 [id number] #### [facility] (DEFAULT) [address] [place] [address] 66941 Sodium [Moles/Vol] 136.0 mmol/L Normal 136.0-144.[address] [facility] Comment on above: Performed By: #### 4 [id number] #### [facility] (DEFAULT) [address] [place] [address] 28205 Urea nitrogen [Mass/Vol] 26 mg/dL Normal 8-26 [facility] Comment on above: Performed By: #### 4 [id number] #### [facility] (DEFAULT) [address] [place] [address] 29988 Urea nitrogen/Creatinine [Mass ratio] 16.3 mg/mg High 4.6-16.2 [facility] Comment on above: Performed By: #### 4 [id number] #### [facility] (DEFAULT) [address] [place] [address] 37156 CBC w/ Auto Diffon 3 Erythrocyte distribution width (RBC) [Ratio] 13.1 % Normal 11.5-15.0 [facility] Comment on above: Performed By: #### 4 [id number] #### [facility] (DEFAULT) [address] [place] [address] 21716 Hematocrit (Bld) [Volume fraction] 35.6 % Normal 34.8-51.9 [facility] Comment on above: Performed By: #### 4 [id number] #### [facility] (DEFAULT) [address] [place] [address] Hemoglobin (Bld) [Mass/Vol] 12.3 g/dL Normal 11.8-17.7 [facility] Comment on above: Performed By: #### 4 [id number] #### [facility] (DEFAULT) [address] [place] [address] Man Diff? Auto Invalid Interpretation Code [facility] Comment on above: Performed By: #### 4 [id number] #### [facility] (DEFAULT) [address] [place] [address] MCH (RBC) [Entitic mass] 34 pg Normal 24-34 [facility] Comment on above: Performed By: #### 4 [id number] #### [facility] (DEFAULT) [address] [place] [address] MCHC (RBC) [Mass/Vol] 34 g/dL Normal 26-37 [facility] Comment on above: Performed By: #### 4 [id number] #### [facility] (DEFAULT) [address] [place] [address] MCV (RBC) [Entitic vol] 98 fL Normal 81-100 [facility] Comment on above: Performed By: #### 4 [id number] #### [facility] (DEFAULT) [address] [place] [address] 16195 Platelet 226 x10 Normal 138-427 [facility] Comment on above: Performed By: #### 4 [id number] #### [facility] (DEFAULT) [address] [place] [address] 82386 Platelet mean volume (Bld) [Entitic vol] 8.1 fL Normal 6.3-10.2 [facility] Comment on above: Performed By: #### 4 [id number] #### [facility] (DEFAULT) [address] [place] [address] 72106 RBC 3.63 x10 Low 3.70-5.30 [facility] Comment on above: Performed By: #### 4 [id number] #### [facility] (DEFAULT) [address] [place] [address] 51863 WBC 6.7 x10 Normal 3.5-10.5 [facility] Comment on above: Performed By: #### 4 [id number] #### [facility] (DEFAULT) [address] [place] [address] 01793 HgbA1c Standardon 10-12-2023 .Hb 12.6 Invalid Interpretation Code [facility] Comment on above: Performed By: #### 1 [id number] ####[facility] (DEFAULT)[address] [place] [address] 90258 .Hgb A1c 0.64 g/dL Invalid Interpretation Code [facility] Comment on above: Performed By: #### 1 [id number] ####[facility] (DEFAULT)[address] [place] [address] Glucose [Mass/Vol] 148 mg/dL Invalid Interpretation Code [facility] Comment on above: Performed By: #### 1 [id number] ####[facility] (DEFAULT)[address] [place] [address] 87075 HbA1c (Bld) [Mass fraction] 6.8 % High 4.6-6.2 [facility] Comment on above: Performed By: #### 1 [id number] ####[facility] (DEFAULT)[address] [place] [address] 96384 UA Eoqnh7or 10-12-2023 UA Bacteria Rare Normal [facility] Comment on above: Order Comment: Urina lysis Microscopic order added on by [email or web address] system. Performed By: #### 5 [id number], [id number] #### [facility] (DEFAULT) [address] [place] [address] 60369 UA Hyal Cast 5-10 Normal [facility] Comment on above: Order Comment: Urina lysis Microscopic order added on by [email or web address] system. Performed By: #### 5 [id number], [id number] #### [facility] (DEFAULT) [address] [place] [address] 02255 UA Mucous Trace Normal [facility] Comment on above: Order Comment: Urina lysis Microscopic order added on by [email or web address] system. Performed By: #### 5 [id number], [id number] #### [facility] (DEFAULT) [address] [place] [address] UA RBC 0-2 [facility] Comment on above: Order Comment: Urina lysis Microscopic order added on by [email or web address] system. Performed By: #### 5 [id number], [id number] #### [facility] (DEFAULT) [address] [place] [address] UA Squam Epi Few [facility] Comment on above: Order Comment: Urina lysis Microscopic order added on by [email or web address] system. Performed By: #### 5 [id number], [id number] #### [facility] (DEFAULT) [address] [place] [address] 65328 UA WBC 0-2 [facility] Comment on above: Order Comment: Urina lysis Microscopic order added on by [email or web address] system. Performed By: #### 5 [id number], [id number] #### [facility] (DEFAULT) [address] [place] [address] UA w Culture if Ind Standard on 10-12-2023 Breakpoint UA [facility] Comment on above: Performed By: #### 5 [id number], [id number] #### [facility] (DEFAULT) [address] [place] [address] Color (U) Yellow [facility] Comment on above: Performed By: #### 5 [id number], [id number] #### [facility] (DEFAULT) [address] [place] [address] Culture? Not Indicated Invalid Interpretation Code [facility] Comment on above: Result Comment: Resu lt created by rule GL_MAGR_ADD_UA_CULT Result created by rule GL_MAGR_ADD_UA_CULT Result created by rule GL_MAGR_ADD_UA_CULT1 Performed By: #### 5 [id number], [id number] #### [facility] (DEFAULT) [address] [place] [address] Glucose (U) [Mass/Vol] Negative [facility] Comment on above: Performed By: #### 5 [id number], [id number] #### [facility] (DEFAULT) [address] [place] [address] 58265 Ketones Ql (U) TRACE Normal [facility] Comment on above: Performed By: #### 5 [id number], [id number] #### [facility] (DEFAULT) [address] [place] [address] 77990 Micro? Indicated Invalid Interpretation Code [facility] Comment on above: Result Comment: Resu lt created by rule GL_MAGR_ADD_UA_MICRO Performed By: #### 5 [id number], [id number] #### [facility] (DEFAULT) [address] [place] [address] 53635 UA Bilirubin SMALL Abnormal [facility] Comment on above: Performed By: #### 5 [id number], [id number] #### [facility] (DEFAULT) [address] [place] [address] 24844 UA Blood Negative Normal NEGATIVE [facility] Comment on above: Performed By: #### 5 [id number], [id number] #### [facility] (DEFAULT) [address] [place] [address] 61286 UA Clarity CLEAR Normal CLEAR [facility] Comment on above: Performed By: #### 5 [id number], [id number] #### [facility] (DEFAULT) [address] [place] [address] 68042 UA Leuk Est Negative Normal NEGATIVE [facility] Comment on above: Performed By: #### 5 [id number], [id number] #### [facility] (DEFAULT) [address] [place] [address] 11703 UA Nitrite Negative Normal NEGATIVE [facility] Comment on above: Performed By: #### 5 [id number], [id number] #### [facility] (DEFAULT) [address] [place] [address] 87855 UA pH 5.5 Normal 5-8 [facility] Comment on above: Performed By: #### 5 [id number], [id number] #### [facility] (DEFAULT) [address] [place] [address] 63222 UA Protein 100 Abnormal NEGATIVE [facility] Comment on above: Performed By: #### 5 [id number], [id number] #### [facility] (DEFAULT) [address] [place] [address] UA Spec Grav >=1.030 Normal 1.001-1.035 [facility] Comment on above: Performed By: #### 5 [id number], [id number] #### [facility] (DEFAULT) [address] [place] [address] UA Urobilinogen 1.0 mg/dL Normal 0.2-1.0 [facility] Comment on above: Performed By: #### 5 [id number], [id number] #### [facility] (DEFAULT) [address] [place] [address] Urine Source Clean Catch Normal [facility] Comment on above: Performed By: #### 5 [id number], [id number] #### [facility] (DEFAULT) [address] [place] [address] CBC AUTO DIFFon 01-27-2023 BASO # 0.0 103/ul Normal 0.0-0.1 [facility] Comment on above: Performed By: #### A 1C #### [facility] [address] [place] [address] Dr. Herminio Ochoa Basophils/100 WBC (Bld) 0.3 % Normal 0.2-2.0 [facility] Comment on above: Performed By: #### A 1C #### [facility] [address] [place] [address] Dr. Herminio Ochoa EO # 0.1 103/ul Normal 0.0-0.7 [facility] Comment on above: Performed By: #### A 1C #### [facility] [address] [place] [address] Dr. Herminio Ochoa Eosinophils/100 WBC (Bld) 1.2 % Normal 0.9-7.0 [facility] Comment on above: Performed By: #### A 1C #### [facility] [address] [place] [address] Dr. Herminio Ochoa Erythrocyte distribution width (RBC) [Ratio] 13.2 % Normal 11.0-15.0 [facility] Comment on above: Performed By: #### A 1C #### [facility] [address] [place] [address] Dr. Herminio Ochoa Hematocrit (Bld) [Volume fraction] 35.9 % Critically low 42.0-54.0 [facility] Comment on above: Performed By: #### A 1C #### [facility] [address] [place] [address] Dr. Herminio Ochoa Hemoglobin (Bld) [Mass/Vol] 12.4 g/dL Critically low 14.0-18.0 [facility] Comment on above: Performed By: #### A 1C #### [facility] [address] [place] [address] Dr. Herminio Ochoa IG # 0.02 10e3/ul Normal 0.00-0.03 [facility] Comment on above: Performed By: #### A 1C #### [facility] [address] [place] [address] Dr. Herminio Ochoa IG % 0.3 % Normal 0.0-0.5 [facility] Comment on above: Performed By: #### A 1C #### [facility] [address] [place] [address] Dr. Herminio Ochoa LYMPH # 1.5 103/ul Normal 1.2-3.8 [facility] Comment on above: Performed By: #### A 1C #### [facility] [address] [place] [address] Dr. Herminio Ochoa Lymphocytes/100 WBC (Bld) 25.5 % Normal 20.5-60.0 [facility] Comment on above: Performed By: #### A 1C #### [facility] [address] [place] [address] Dr. Herminio Ochoa MANUAL DIFF REQ NO Normal [facility] Comment on above: Performed By: #### A 1C #### [facility] [address] [place] [address] Dr. Herminio Ochoa MCH (RBC) [Entitic mass] 33.6 pg Normal 25.9-34.0 [facility] Comment on above: Performed By: #### A 1C #### [facility] [address] [address] [address] Herminio Ochoa MCHC (RBC) [Mass/Vol] 34.5 g/dL Normal 29.9-35.2 [facility] Comment on above: Performed By: #### A 1C #### [facility] [address] [address] [address] Herminio Ochoa MCV (RBC) [Entitic vol] 97.3 fL Critically high 80.0-94.0 [facility] Comment on above: Performed By: #### A 1C #### [facility] [address] [place] [address] Dr. Herminio Ochoa MONO # 0.5 103/ul Normal 0.3-0.8 [facility] Comment on above: Performed By: #### A 1C #### [facility] [address] [place] [address] Dr. Herminio Ochoa Monocytes/100 WBC (Bld) 8.5 % Normal 1.7-12.0 [facility] Comment on above: Performed By: #### A 1C #### [facility] [address] [place] [address] Dr. Herminio Ochoa NEUT # 3.8 103/ul Normal 1.4-6.5 [facility] Comment on above: Performed By: #### A 1C #### [facility] [address] [place] [address] Dr. Herminio Ochoa Neutrophils/100 WBC (Bld) 64.2 % Normal 43.0-75.0 [facility] Comment on above: Performed By: #### A 1C #### [facility] [address] [place] [address] Dr. Herminio Ochoa Platelet mean volume (Bld) [Entitic vol] 10.1 fL Normal 9.5-13.5 [facility] Comment on above: Performed By: #### A 1C #### [facility] [address] [place] [address] Dr. Herminio Ochoa PLT 214 103/ul Normal 150-450 [facility] Comment on above: Performed By: #### A 1C #### [facility] [address] [address] [address] Herminio Ochoa RBC 3.69 106/ul Critically low 4.70-6.10 [facility] Comment on above: Performed By: #### A 1C #### [facility] [address] [address] [address] Herminio Ochoa WBC 6.0 103/ul Normal 4.0-11.0 [facility] Comment on above: Performed By: #### A 1C #### [facility] [address] [address] [address] Herminio Ochoa GLYCOHEMOGLOBIN A1Con 2022 ADA RECOMMENDATION SEE BELOW Normal [facility] Comment on above: Result Comment: ADA RECOMMENDED LIMIT 4.0 - 6.0 ADA THERAPEUTIC TARGET < 7.0 ACTION SUGGESTED > 7.0 Performed By: #### A 1C #### [facility] [address] [address] [address] Herminio Ochoa Glucose [Mass/Vol] 140 mg/dL Normal [facility] Comment on above: Performed By: #### A 1C #### [facility] [address] [address] [address] Herminio Ochoa HbA1c (Bld) [Mass fraction] 6.5 % Critically high 4.5-6.2 [facility] Comment on above: Performed By: #### A 1C #### [facility] [address] [place] [address] Dr. Herminio Ochoa MICROALBUMIN, RAND URon 01-11 mALB 10.8 mg/L Normal <=30.0 [facility] Comment on above: Performed By: #### M ALBR #### [facility] [address] [place] [address] Dr. Herminio Ochoa PROF 14(COMP METB)on 023 Albumin [Mass/Vol] 4.0 g/dL Normal 3.4-5.0 [facility] Comment on above: Performed By: #### V ITB12, PSASC #### [facility] [address] [place], [place] [id number] Dr. Herminio Ochoa Albumin/Globulin [Mass ratio] 1.3 {ratio} Normal [facility] Comment on above: Performed By: #### V ITB12, PSASC #### [facility] [address] [place] [address] Dr. Herminio Ochoa ALP [Catalytic activity/Vol] 110 U/L Normal 46-116 [facility] Comment on above: Performed By: #### V ITB12, PSASC #### [facility] [address] [place] [address] Dr. Herminio Ochoa ALT [Catalytic activity/Vol] 24 U/L Normal 16-63 [facility] Comment on above: Performed By: #### V ITB12, PSASC #### [facility] [address] [place] [address] Dr. Herminio Ochoa Anion gap [Moles/Vol] 13.9 mmol/L Normal [facility] Comment on above: Performed By: #### V ITB12, PSASC #### [facility] [address] [place] [address] Dr. Herminio Ochoa AST [Catalytic activity/Vol] 17 U/L Normal 15-37 [facility] Comment on above: Performed By: #### V ITB12, PSASC #### [facility] [address] [place] [address] Dr. Herminio Ochoa Bilirubin [Mass/Vol] 0.4 mg/dL Normal 0.2-1.0 [facility] Comment on above: Performed By: #### V ITB12, PSASC #### [facility] [address] [place] [address] Dr. Herminio Ochoa Calcium [Mass/Vol] 8.8 mg/dL Normal 8.5-10.1 [facility] Comment on above: Performed By: #### V ITB12, PSASC #### [facility] [address] [place] [address] Dr. Herminio Ochoa Chloride [Moles/Vol] 103 mmol/L Normal 98-107 [facility] Comment on above: Performed By: #### V ITB12, PSASC #### [facility] [address] [address] [address] Herminio Ochoa CO2 [Moles/Vol] 29.5 mmol/L Normal 21.0-32.0 [facility] Comment on above: Performed By: #### V ITB12, PSASC #### [facility] [address] [address] [address] Herminio Ochoa Creatinine [Mass/Vol] 1.30 mg/dL Normal 0.70-1.30 [facility] Comment on above: Performed By: #### V ITB12, PSASC #### [facility] [address] [address] [address] Herminio Ochoa EGFR-AF OMANI >60 Normal >=60 [facility] Comment on above: Performed By: #### V ITB12, PSASC #### [facility] [address] [place] [address] Dr. Herminio Ochoa EGFR-NON AF OMANI 56 mL/min/1.73m2 Critically low >=60 [facility] Comment on above: Performed By: #### V ITB12, PSASC #### [facility] [address] [address] [address] Herminio Ochoa Globulin (S) [Mass/Vol] 3.2 g/dL Normal [facility] Comment on above: Performed By: #### V ITB12, PSASC #### [facility] [address] [address] [address] Herminio Ochoa Glucose [Mass/Vol] 98 mg/dL Normal 74-106 [facility] Comment on above: Performed By: #### V ITB12, PSASC #### [facility] [address] [address] [address] Herminio Ochoa Potassium [Moles/Vol] 4.4 mmol/L Normal 3.5-5.1 [facility] Comment on above: Performed By: #### V ITB12, PSASC #### [facility] [address] [address] [address] Herminio Ochoa Protein [Mass/Vol] 7.2 g/dL Normal 6.4-8.2 [facility] Comment on above: Performed By: #### V ITB12, PSASC #### [facility] [address] [place] [address] Dr. Herminio Ochoa Sodium [Moles/Vol] 142 mmol/L Normal 136-145 [facility] Comment on above: Performed By: #### V ITB12, PSASC #### [facility] [address] [place] [address] Dr. Herminio Ochoa Urea nitrogen [Mass/Vol] 25.0 mg/dL Critically high 7.0-18.0 [facility] Comment on above: Performed By: #### V ITB12, PSASC #### [facility] [address] [place] [address] Dr. Herminio Ochoa Urea nitrogen/Creatinine [Mass ratio] 19.2 mg/mg Normal [facility] Comment on above: Performed By: #### V ITB12, PSASC #### [facility] [address] [place] [address] Dr. Herminio Ochoa UA RANDOM W/MICROSCOPICon BACTERIA NONE SEEN Normal NONE SEEN [facility] Comment on above: Performed By: #### A 1C #### [facility] [address] [place] [address] Dr. Herminio Ochoa Bilirubin Ql (U) Negative Normal NEGATIVE [facility] Comment on above: Performed By: #### A 1C #### [facility] [address] [place] [address] Dr. Herminio Ochoa CAST NONE SEEN Normal NONE SEEN [facility] Comment on above: Performed By: #### A 1C #### [facility] [address] [place] [address] Dr. Herminio Ochoa Clarity (U) SL CLOUDY Abnormal CLEAR [facility] Comment on above: Performed By: #### A 1C #### [facility] [address] [place] [address] Dr. Herminio Ochoa Color (U) LT. YELLOW Normal YELLOW [facility] Comment on above: Performed By: #### A 1C #### [facility] [address] [place] [address] Dr. Herminio Ochoa Crystals LM Nom (Urine sed) NONE SEEN Normal NONE SEEN [facility] Comment on above: Performed By: #### A 1C #### [facility] [address] [place] [address] Dr. Herminio Ochoa Epithelial cells LM Ql (Urine sed) FEW Abnormal NONE SEEN /RARE The [facility] Comment on above: Performed By: #### A 1C #### [facility] [address] [place] [address] Dr. Herminio Ochoa Glucose Ql (U) Negative Normal NEGATIVE The [facility] Comment on above: Performed By: #### A 1C #### [facility] [address] [place] [address] Dr. Herminio Ochoa Hemoglobin Ql (U) Negative Normal NEGATIVE The [facility] Comment on above: Performed By: #### A 1C #### [facility] [address] [place] [address] Dr. Herminio Ochoa Ketones Ql (U) Negative Normal NEGATIVE The [facility] Comment on above: Performed By: #### A 1C #### [facility] [address] [place] [address] Dr. Herminio Ochoa LEUKOCYTES Negative Normal NEGATIVE [facility] Comment on above: Performed By: #### A 1C #### [facility] [address] [place] [address] Dr. Herminio Ochoa MUCOUS SMALL Abnormal NONE SEEN [facility] Comment on above: Performed By: #### A 1C #### [facility] [address] [place] [address] Dr. Herminio Ochoa Nitrite Ql (U) Negative Normal NEGATIVE The [facility] Comment on above: Performed By: #### A 1C #### [facility] [address] [place] [address] Dr. Herminio Ochoa pH (U) 6.0 [pH] Normal 5-9 [facility] Comment on above: Performed By: #### A 1C #### [facility] [address] [place] [address] Dr. Herminio Ochoa RBC NONE SEEN Abnormal 0-2 [facility] Comment on above: Performed By: #### A 1C #### [facility] [address] [place] [address] Dr. Herminio Ochoa SPEC GRAVITY 1.020 Normal 1.005-<=1.[address] [facility] Comment on above: Performed By: #### A 1C #### [facility] [address] [place] [address] Dr. Herminio Ochoa UA PROTEIN TRACE Normal NEGATIVE/ TRACE [facility] Comment on above: Performed By: #### A 1C #### [facility] [address] [place] [address] Dr. Herminio Ochoa Urobilinogen Qn (U) 1.0 {Ricky'U}/dL Normal 0.2 - 1. 0 [facility] Comment on above: Performed By: #### A 1C #### [facility] [address] [place] [address] Dr. Herminio Ochoa WBC NONE SEEN Normal NONE SEEN [facility] Comment on above: Performed By: #### A 1C #### [facility] [address] [place] [address] Dr. Herminio Ochoa VITAMIN B12on 01-27-2023 Cobalamin (Vitamin B12) [Mass/Vol] 256.0 pg/mL Normal 193.0-986.0 [facility] Comment on above: Performed By: #### V ITB12 #### [facility] [address] [place] [address] Dr. Herminio Ochoa XR LSPINE 2_3 VIEWSon 2022 XR LSPINE 2_3 VIEWS EXAMINATION: XR LSPINE 2_3 VIEWS HISTORY: Lumbar radiculopathy COMPARISON: No relevant comparison available. FINDINGS: BONES: Mild levocurvature centered at L3. Mild to moderate degenerative spondylosis and facet osteoarthropathy DISC SPACES: Normal. No significant disc height narrowing, subluxation, or endplate abnormality. PARASPINOUS: Negative. No paraspinous abnormality is seen. OTHER: Vascular calcifications IMPRESSION: [id number] degenerative changes Electronically authenticated by: JOCELYN ZALDIVAR Date: 2023-01-27 15:33 Normal [facility] OCC BLD IMMUNO SCREENon 11-14 OCCULT BLOOD Negative Normal NEGATIVE The [facility] Comment on above: Performed By: #### A 1C #### [facility] [address] [place] [address] Dr. Herminio Ochoa PTH INTACTon 08-03-2022 PTH, Intact 16 pg/mL Normal 15-65 [facility] Comment on above: Performed By: #### A 1C #### [facility] [address] [place] [address] Dr. Herminio Ochoa FERRITINon 08-02-2022 Ferritin [Mass/Vol] 61.0 ng/mL Normal 26.0-388.0 [facility] Comment on above: Performed By: #### F ERR, IRON #### [facility] [address] [place] [address] Dr. Herminio Ochoa HEMOGRAM AND PLATELon 2021 Hematocrit (Bld) [Volume fraction] 32.0 % Critically low 42.0-54.0 [facility] Comment on above: Performed By: #### A 1C #### [facility] [address] [place] [address] Dr. Herminio Ochoa Hemoglobin (Bld) [Mass/Vol] 10.8 g/dL Critically low 14.0-18.0 [facility] Comment on above: Performed By: #### A 1C #### [facility] [address] [place] [address] Dr. Herminio Ochoa MCH (RBC) [Entitic mass] 33.3 pg Normal 25.9-34.0 [facility] Comment on above: Performed By: #### A 1C #### [facility] [address] [place] [address] Dr. eHrminio Ochoa MCHC (RBC) [Mass/Vol] 33.8 g/dL Normal 29.9-35.2 [facility] Comment on above: Performed By: #### A 1C #### [facility] [address] [place] [address] Dr. Herminio Ochoa MCV (RBC) [Entitic vol] 98.8 fL Critically high 80.0-94.0 [facility] Comment on above: Performed By: #### A 1C #### [facility] [address] [address] [address] Herminio Ochoa PLT 153 103/ul Normal 150-450 [facility] Comment on above: Performed By: #### A 1C #### [facility] [address] [place] [address] Dr. Herminio Ochoa RBC 3.24 106/ul Critically low 4.70-6.[address] [facility] Comment on above: Performed By: #### A 1C #### [facility] [address] [place] [address] Dr. Herminio Ochoa WBC 4.7 103/ul Normal 4.0-11.0 [facility] Comment on above: Performed By: #### A 1C #### [facility] [address] [place] [address] Dr. Herminio Ochoa IRONon 08-02-2022 Iron [Mass/Vol] 94.0 ug/dL Normal 65.0-175.[address] [facility] Comment on above: Performed By: #### A 1C #### [facility] [address] [place] [address] Dr. Herminio Ochoa PHOSPHORUSon 08-02-2022 Phosphate [Mass/Vol] 3.8 mg/dL Normal 2.6-4.7 [facility] Comment on above: Performed By: #### A 1C #### [facility] [address] [place] [address] Dr. Herminio Ochoa PROF CHEM 8 (BAS METB)on Anion gap [Moles/Vol] 12.1 mmol/L Normal [facility] Comment on above: Performed By: #### A 1C #### [facility] [address] [place] [address] Dr. Herminio Ochoa Calcium [Mass/Vol] 8.7 mg/dL Normal 8.5-10.1 [facility] Comment on above: Performed By: #### A 1C #### [facility] [address] [place] [address] Dr. Herminoi Ochoa Chloride [Moles/Vol] 104 mmol/L Normal 98-107 [facility] Comment on above: Performed By: #### A 1C #### [facility] [address] [address] [address] Herminio Ochoa CO2 [Moles/Vol] 27.7 mmol/L Normal 21.0-32.0 [facility] Comment on above: Performed By: #### A 1C #### [facility] [address] [address] [address] Herminio Ochoa Creatinine [Mass/Vol] 1.48 mg/dL Critically high 0.70-1.30 [facility] Comment on above: Performed By: #### A 1C #### [facility] [address] [address] [address] Herminio Ochoa EGFR-AF OMANI 58 mL/min/1.73m2 Critically low >=60 [facility] Comment on above: Performed By: #### A 1C #### [facility] [address] [address] [address] Herminio Ochoa EGFR-NON AF OMANI 48 mL/min/1.73m2 Critically low >=60 [facility] Comment on above: Performed By: #### A 1C #### [facility] [address] [address] [address] Herminio Ochoa Glucose [Mass/Vol] 142 mg/dL Critically high 74-106 [facility] Comment on above: Performed By: #### A 1C #### [facility] [address] [address] [address] Herminio Ochoa Potassium [Moles/Vol] 4.8 mmol/L Normal 3.5-5.1 [facility] Comment on above: Performed By: #### A 1C #### [facility] [address] [address] [address] Herminio Ochoa Sodium [Moles/Vol] 139 mmol/L Normal 136-145 [facility] Comment on above: Performed By: #### A 1C #### [facility] [address] [address] [address] Herminio Ochoa Urea nitrogen [Mass/Vol] 40.0 mg/dL Critically high 7.0-18.0 [facility] Comment on above: Performed By: #### A 1C #### [facility] [address] [place] [address] Dr. Herminio Ochoa Urea nitrogen/Creatinine [Mass ratio] 27.0 mg/mg Normal [facility] Comment on above: Performed By: #### A 1C #### [facility] [address] [place] [address] Dr. Herminio Ochoa MICROALBUMIN URINEon 022 Albumin, Urine 27.1 ug/mL Normal Not Estab. The [facility] Comment on above: Performed By: #### V ITB12, PSASC #### [facility] [address] [place] [address] Dr. Herminio Ochoa CBC AUTO DIFFon 07-08-2022 BASO # 0.0 103/ul Normal 0.0-0.1 [facility] Comment on above: Performed By: #### C BC #### [facility] [address] [place] [address] Dr. Herminio Ochoa Basophils/100 WBC (Bld) 0.3 % Normal 0.2-2.0 [facility] Comment on above: Performed By: #### C BC #### [facility] [address] [place] [address] Dr. Herminio Ochoa EO # 0.1 103/ul Normal 0.0-0.7 [facility] Comment on above: Performed By: #### C BC #### [facility] [address] [place] [address] Dr. Herminio Ochoa Eosinophils/100 WBC (Bld) 1.5 % Normal 0.9-7.0 [facility] Comment on above: Performed By: #### C BC #### [facility] [address] [place] [address] Dr. Herminio Ochoa Erythrocyte distribution width (RBC) [Ratio] 12.8 % Normal 11.0-15.0 [facility] Comment on above: Performed By: #### C BC #### [facility] [address] [place] [address] Dr. Herminio Ochoa Hematocrit (Bld) [Volume fraction] 32.8 % Critically low 42.0-54.0 [facility] Comment on above: Performed By: #### C BC #### [facility] [address] [address] [address] Hermiino Ochoa Hemoglobin (Bld) [Mass/Vol] 11.2 g/dL Critically low 14.0-18.0 [facility] Comment on above: Performed By: #### C BC #### [facility] [address] [address] [address] Herminio Ochoa IG # 0.01 10e3/ul Normal 0.00-0.03 [facility] Comment on above: Performed By: #### C BC #### [facility] [address] [place] [address] Dr. Herminio Ochoa IG % 0.1 % Normal 0.0-0.5 [facility] Comment on above: Performed By: #### C BC #### [facility] [address] [place] [address] Dr. Herminio Ochoa LYMPH # 1.3 103/ul Normal 1.2-3.8 [facility] Comment on above: Performed By: #### C BC #### [facility] [address] [place] [address] Dr. Herminio Ochoa Lymphocytes/100 WBC (Bld) 19.0 % Critically low 20.5-60.0 [facility] Comment on above: Performed By: #### C BC #### [facility] [address] [place] [address] Dr. Herminio Ochoa MANUAL DIFF REQ NO Normal [facility] Comment on above: Performed By: #### C BC #### [facility] [address] [place] [address] Dr. Herminio Ochoa MCH (RBC) [Entitic mass] 33.5 pg Normal 25.9-34.0 [facility] Comment on above: Performed By: #### C BC #### [facility] [address] [place] [address] Dr. Herminio Ochoa MCHC (RBC) [Mass/Vol] 34.1 g/dL Normal 29.9-35.2 [facility] Comment on above: Performed By: #### C BC #### [facility] [address] [address] [address] Herminio Ochoa MCV (RBC) [Entitic vol] 98.2 fL Critically high 80.0-94.0 [facility] Comment on above: Performed By: #### C BC #### [facility] [address] [address] [address] Herminio Ochoa MONO # 0.6 103/ul Normal 0.3-0.8 [facility] Comment on above: Performed By: #### C BC #### [facility] [address] [address] [address] Herminio Ochoa Monocytes/100 WBC (Bld) 8.7 % Normal 1.7-12.0 [facility] Comment on above: Performed By: #### C BC #### [facility] [address] [address] [address] Herminio Ochoa NEUT # 4.7 103/ul Normal 1.4-6.5 [facility] Comment on above: Performed By: #### C BC #### [facility] [address] [address] [address] Herminio Ochoa Neutrophils/100 WBC (Bld) 70.4 % Normal 43.0-75.0 [facility] Comment on above: Performed By: #### C BC #### [facility] [address] [address] [address] Herminio Ochoa Platelet mean volume (Bld) [Entitic vol] 10.6 fL Normal 9.5-13.5 [facility] Comment on above: Performed By: #### C BC #### [facility] [address] [address] [address] Herminio Ochoa PLT 187 103/ul Normal 150-450 [facility] Comment on above: Performed By: #### C BC #### [facility] [address] [address] [address] Herminio Ochoa RBC 3.34 106/ul Critically low 4.70-6.[address] [facility] Comment on above: Performed By: #### C BC #### [facility] [address] [address] [address] Herminio Ochoa WBC 6.7 103/ul Normal 4.0-11.0 [facility] Comment on above: Performed By: #### C BC #### [facility] [address] [address] [address] Herminio Ochoa GLYCOHEMOGLOBIN A1Con 2021 ADA RECOMMENDATION SEE BELOW Normal [facility] Comment on above: Result Comment: ADA RECOMMENDED LIMIT 4.0 - 6.0 ADA THERAPEUTIC TARGET < 7.0 ACTION SUGGESTED > 7.0 Performed By: #### A 1C #### [facility] [address] [address] [address] Herminio Ochoa Glucose [Mass/Vol] 151 mg/dL Normal [facility] Comment on above: Performed By: #### A 1C #### [facility] [address] [place] [address] Dr. Herminio Ochoa HbA1c (Bld) [Mass fraction] 6.9 % Critically high 4.5-6.2 [facility] Comment on above: Performed By: #### A 1C #### [facility] [address] [address] [address] Herminio Ochoa LIPID PROFILEon 07-08-2022 CHOL-HDL RATIO NORM SEE BELOW Normal [facility] Comment on above: Result Comment: 3.3 - 4.4 LOW RISK 4.4 - 7.1 AVERAGE RISK 7.1 - 11.0 MODERATE RISK >11.0 HIGH RISK Performed By: #### L IPID, CMP #### [facility] [address] [place] [address] Dr. Herminio Ochoa Cholesterol [Mass/Vol] 123 mg/dL Normal <=200 [facility] Comment on above: Performed By: #### L IPID, CMP #### [facility] [address] [address] [address] Herminio Ochoa Cholesterol in HDL [Mass/Vol] 50 mg/dL Normal 40-60 [facility] Comment on above: Performed By: #### L IPID, CMP #### [facility] [address] [address] [address] Herminio Ochoa Cholesterol in LDL [Mass/Vol] 59.0 mg/dL Normal [facility] Comment on above: Performed By: #### L IPID, CMP #### [facility] [address] [place] [address] Dr. Herminio Ochoa Cholesterol.total/Ch olesterol in HDL [Mass ratio] 2.5 {ratio} Normal [facility] Comment on above: Performed By: #### L IPID, CMP #### [facility] [address] [address] [address] Herminio Ochoa HDL NORMAL > or = 60 mg/dl - LOW CARDIOVASCULAR RISK <40 mg/dl - HIGH CARDIOVASCULAR RISK Normal [facility] Comment on above: Performed By: #### L IPID, CMP #### [facility] [address] [place] [address] Dr. Herminio Ochoa LDL CALC NORMAL SEE BELOW Normal The [facility] Comment on above: Result Comment: <100 mg/dl OPTIMAL 100 - 129 mg/dl NEAR OR ABOVE OPTIMAL 130 - 159 mg/dl BORDERLINE HIGH 160 - 189 mg/dl HIGH >190 mg/dl VERY HIGH Performed By: #### L IPID, CMP #### [facility] [address] [place] [address] Dr. Herminio Ochoa Triglyceride [Mass/Vol] 70 mg/dL Normal <=150 [facility] Comment on above: Performed By: #### L IPID, CMP #### [facility] [address] [place] [address] Dr. Herminio Ochoa VLDL CALC 14.0 mg/dL Normal [facility] Comment on above: Performed By: #### L IPID, CMP #### [facility] [address] [address] [address] Herminio Ochoa PROF 14(COMP METB)on 022 Albumin [Mass/Vol] 4.2 g/dL Normal 3.4-5.0 [facility] Comment on above: Performed By: #### L IPID, CMP #### [facility] [address] [place] [address] Dr. Herminio Ochoa Albumin/Globulin [Mass ratio] 1.3 {ratio} Normal [facility] Comment on above: Performed By: #### L IPID, CMP #### [facility] [address] [place] [address] Dr. Herminio Ochoa ALP [Catalytic activity/Vol] 90 U/L Normal 46-116 [facility] Comment on above: Performed By: #### L IPID, CMP #### [facility] [address] [place] [address] Dr. Herminio Ochoa ALT [Catalytic activity/Vol] 21 U/L Normal 16-63 [facility] Comment on above: Performed By: #### L IPID, CMP #### [facility] [address] [place] [address] Dr. Herminio Ochoa Anion gap [Moles/Vol] 16.1 mmol/L Normal [facility] Comment on above: Performed By: #### L IPID, CMP #### [facility] [address] [place] [address] Dr. Herminio Ochoa AST [Catalytic activity/Vol] 15 U/L Normal 15-37 [facility] Comment on above: Performed By: #### L IPID, CMP #### [facility] [address] [place] [address] Dr. Herminio Ochoa Bilirubin [Mass/Vol] 0.4 mg/dL Normal 0.2-1.0 [facility] Comment on above: Performed By: #### L IPID, CMP #### [facility] [address] [place] [address] Dr. Herminio Ochoa Calcium [Mass/Vol] 9.0 mg/dL Normal 8.5-10.1 [facility] Comment on above: Performed By: #### L IPID, CMP #### [facility] [address] [place] [address] Dr. Herminio Ochoa Chloride [Moles/Vol] 102 mmol/L Normal 98-107 [facility] Comment on above: Performed By: #### L IPID, CMP #### [facility] [address] [place] [address] Dr. Herminio Ochoa CO2 [Moles/Vol] 23.9 mmol/L Normal 21.0-32.0 [facility] Comment on above: Performed By: #### L IPID, CMP #### [facility] [address] [place] [address] Dr. Herminio Ochoa Creatinine [Mass/Vol] 2.22 mg/dL Critically high 0.70-1.30 [facility] Comment on above: Performed By: #### L IPID, CMP #### [facility] [address] [place] [address] Dr. Herminio Ochoa EGFR-AF OMANI 36 mL/min/1.73m2 Critically low >=60 [facility] Comment on above: Performed By: #### L IPID, CMP #### [facility] [address] [place] [address] Dr. Herminio Ochoa EGFR-NON AF OMANI 30 mL/min/1.73m2 Critically low >=60 [facility] Comment on above: Performed By: #### L IPID, CMP #### [facility] [address] [place] [address] Dr. Herminio Ochoa Globulin (S) [Mass/Vol] 3.2 g/dL Normal [facility] Comment on above: Performed By: #### L IPID, CMP #### [facility] [address] [place] [address] Dr. Herminio Ochoa Glucose [Mass/Vol] 158 mg/dL Critically high 74-106 [facility] Comment on above: Performed By: #### L IPID, CMP #### [facility] [address] [place] [address] Dr. Herminio Ochoa Potassium [Moles/Vol] 5.0 mmol/L Normal 3.5-5.1 [facility] Comment on above: Performed By: #### L IPID, CMP #### [facility] [address] [place] [address] Dr. Herminio Ochoa Protein [Mass/Vol] 7.4 g/dL Normal 6.4-8.2 [facility] Comment on above: Performed By: #### L IPID, CMP #### [facility] [address] [place] [address] Dr. Herminio Ochoa Sodium [Moles/Vol] 137 mmol/L Normal 136-145 [facility] Comment on above: Performed By: #### L IPID, CMP #### [facility] [address] [place] [address] Dr. Herminio Ochoa Urea nitrogen [Mass/Vol] 47.0 mg/dL Critically high 7.0-18.0 [facility] Comment on above: Performed By: #### L IPID, CMP #### [facility] [address] [place] [address] Dr. Herminio Ochoa Urea nitrogen/Creatinine [Mass ratio] 21.2 mg/mg Normal [facility] Comment on above: Performed By: #### L IPID, CMP #### [facility] [address] [place] [address] Dr. Herminio Ochoa UA RANDOM W/MICROSCOPICon BACTERIA NONE SEEN Normal NONE SEEN [facility] Comment on above: Performed By: #### U AMIC #### [facility] [address] [place] [address] Dr. Herminio Ochoa Bilirubin Ql (U) Negative Normal NEGATIVE [facility] Comment on above: Performed By: #### U AMIC #### [facility] [address] [place] [address] Dr. Herminio Ochoa CAST NONE SEEN Normal NONE [facility] Comment on above: Performed By: #### U AMIC #### [facility] [address] [place] [address] Dr. Herminio Ochoa Clarity (U) CLEAR Normal CLEAR [facility] Comment on above: Performed By: #### U AMIC #### [facility] [address] [place] [address] Dr. Herminio Ochoa Color (U) LT. YELLOW Normal YELLOW [facility] Comment on above: Performed By: #### U AMIC #### [facility] [address] [place] [address] Dr. Herminio Ochoa Crystals LM Nom (Urine sed) NONE SEEN Normal NONE SEEN [facility] Comment on above: Performed By: #### U AMIC #### [facility] [address] [address] [address] Herminio Ochoa Epithelial cells LM Ql (Urine sed) FEW Abnormal NONE SEEN /RARE [facility] Comment on above: Performed By: #### U AMIC #### [facility] [address] [address] [address] Herminio Ochoa Glucose Ql (U) Negative Normal NEGATIVE [facility] Comment on above: Performed By: #### U AMIC #### [facility] [address] [address] [address] Herminio Ochoa Hemoglobin Ql (U) Negative Normal NEGATIVE [facility] Comment on above: Performed By: #### U AMIC #### [facility] [address] [address] [address] Herminio Ochoa Ketones Ql (U) TRACE Abnormal NEGATIVE [facility] Comment on above: Performed By: #### U AMIC #### [facility] [address] [address] [address] Herminio Ochoa LEUKOCYTES Negative Normal NEGATIVE [facility] Comment on above: Performed By: #### U AMIC #### [facility] [address] [address] [address] Herminio Ochoa MUCOUS NONE SEEN Normal NONE SEEN [facility] Comment on above: Performed By: #### U AMIC #### [facility] [address] [address] [address] Herminio Ochoa Nitrite Ql (U) Negative Normal NEGATIVE The [facility] Comment on above: Performed By: #### U AMIC #### [facility] [address] [address] [address] Herminio Ochoa pH (U) 5.5 [pH] Normal 5-9 [facility] Comment on above: Performed By: #### U AMIC #### [facility] [address] [place] [address] Dr. Herminio Ochoa RBC NONE SEEN Abnormal 0-2 [facility] Comment on above: Performed By: #### U AMIC #### [facility] [address] [address] [address] Herminio Ochoa SPEC GRAVITY 1.025 Normal 1.005-<=1.[address] [facility] Comment on above: Performed By: #### U AMIC #### [facility] [address] [address] [address] Herminio Ochoa UA PROTEIN Negative Normal NEGATIVE/ TRACE [facility] Comment on above: Performed By: #### U AMIC #### [facility] [address] [address] [address] Herminio Ochoa Urobilinogen Qn (U) 0.2 {Ricky'U}/dL Normal 0.2 - 1. 0 [facility] Comment on above: Performed By: #### U AMIC #### [facility] [address] [place] [address] Dr. Herminio Ochoa WBC NONE SEEN Normal NONE SEEN [facility] Comment on above: Performed By: #### U AMIC #### [facility] [address] [place] [address] Dr. Herminio Ochoa VITAMIN B12on 07-08-2022 Cobalamin (Vitamin B12) [Mass/Vol] 321.0 pg/mL Normal 193.0-986.0 [facility] Comment on above: Performed By: #### V ITB12, PSASC #### [facility] [address] [place] [address] Dr. Herminio Ochoa Vital Signs Date Time Vital Sign Value Performing Clinician Faci lity 07-31-2023 09:20-0400 Body height 175.26 cm Rasheeda Blades Other [facility] Other 07-31-2023 09:20-0400 Body mass index (BMI) [Ratio] 42.17 kg/m2 Rasheeda Blades Other [facility] Other 07-31-2023 09:20-0400 Body weight 129.55 kg Rasheeda Blades Other [facility] Other Encounters Encounter Date Encounter Type Care Provider Facility Start: 08-06-2024 ambulatory Charlie Loving acility:[facility] Start: 07-25-2024 End: 07-25-2024 ambulatory SAMAN MORAN Not Available Start: 07-24-2024 End: 07-24-2024 ambulatory IDALMIS AICHHOLZ Not Available Start: 07-03-2024 End: 07-03-2024 ambulatory TEMI ANNA Not Available Start: 06-12-2024 End: 06-12-2024 ambulatory IDALMIS AICHHOLZ Not Available Start: 06-05-2024 End: 06-05-2024 ambulatory JOSE KENDALL Not Available Start: 05-10-2024 End: 05-10-2024 ambulatory ELMIRA FLORY Not Available Start: 05-07-2024 End: 05-10-2024 ambulatory DEJAN BURT Not Available Start: 04-24-2024 End: 04-24-2024 ambulatory SAMAN MORAN Not Available Start: 04-17-2024 End: 04-17-2024 ambulatory IDALMIS AICHHOLZ Not Available Start: 01-23-2024 End: 01-23-2024 ambulatory SAMAN MORAN Not Available Start: 01-22-2024 End: 01-22-2024 ambulatory DEJAN BURT Not Available Start: 12-28-2023 Refill Idalmis Azulz CERTIFIED ADDICTION COUNSELOR Work Phone: [facility] Comment on above: Type 2 diabetes daryl itus with peripheral neuropathy (CMS/HCC) (Primary Dx); Cervical pain (neck) Start: 12-25-2023 Refill Idalmis Aicarthur CERTIFIED ADDICTION COUNSELOR Work Phone: [facility] Comment on above: Type 2 diabetes daryl itus with peripheral neuropathy (CMS/HCC) (Primary Dx); Cervical pain (neck) Start: 12-22-2023 End: 12-22-2023 Postop follow up visit related to original px Dejan Burt PA Work Phone: [facility] Comment on above: S/P total right hip arthroplasty (Primary Dx); Right hip pain Start: 12-22-2023 End: 12-22-2023 ambulatory DEJAN BURT Not Available Start: 11-22-2023 End: 11-22-2023 ambulatory DEJAN BURT Not Available Start: 11-08-2023 End: 11-10-2023 ambulatory Idalmis Evelyn Quevedobaldevkusum Facility:[facility] Start: 11-02-2023 End: 11-02-2023 Patient encounter procedure Dejan CHURCH Work Phone: [facility] Start: 11-02-2023 End: 11-02-2023 ambulatory IDALMIS SHERIDANBaldevKUSUM Not Available Start: 10-23-2023 Preoperative state Dejan CHURCH Work Phone: [facility] Start: 10-23-2023 End: 10-23-2023 ambulatory IDALMIS SHERIDANBaldevKUSUM Not Available Start: 10-12-2023 End: 10-13-2023 ambulatory Idalmis Quevedobaldevkusum Facility:[facility] Start: 10-11-2023 End: 10-11-2023 ambulatory DEJAN BURT Not Available Start: 09-29-2023 End: 09-29-2023 ambulatory Rasheeda Santamaria Other [facility] [employer] Other Start: 09-29-2023 Telephone encounter Rasheeda Santamaria [facility] Start: 07-31-2023 End: 07-31-2023 ambulatory Rasheeda Santamaria Other [facility] [employer] Other Start: 07-31-2023 FQHC visit new patient Rasheeda Holland s [facility] Start: 05-12-2023 End: 05-12-2023 ambulatory NON STAFF [facility] Work Phone: Start: 05-12-2023 End: 05-12-2023 Patient encounter procedure [facility] [place] Work Phone: Start: 04-07-2023 Registered Rec[facility]ring [facility] Start: 02-27-2023 ambulatory TEMI Orellana ility:[facility] Start: 01-27-2023 End: 01-28-2023 ambulatory MANUFACTURING TECH IDALMIS ADAM Facility:[facility] Start: 12-10-2022 End: 12-10-2022 ambulatory HARVEY ADAM Facility:[facility] Start: 08-02-2022 End: 08-03-2022 ambulatory HARVEY ADAM Facility:[facility] Start: 07-08-2022 End: 07-09-2022 ambulatory HARVEY ADAM Facility:[facility] Start: 12-06-2017 End: 12-07-2017 Ambulatory DEFAULT PHYSICIAN Facility:[facility] Procedures Date Procedure Procedure Detail Performing Clinician Start: 12-22-2023 Radex hip unilateral with pelvis 2-3 views Dejan CHURCH Work Phone: Start: 05-12-2023 XR pre/post mri xray Start: 05-12-2023 MR lumbar spine wo con Start: 07-08-2022 PSA screening HARVEY ADAM Comment on above: Performed By: #### V ITB12, PSASC #### [facility] [address] [place] [address] Dr. Herminio Ochoa Start: 08-02-2017 Colonoscopy Dejan CHURCH Work Phone: Plan of Treatment Date Care Activity Detail Author Start: 08-02-2027 Screening for malign ant neoplasm of colon [facility] Start: 11-02-2024 Medicare Annual Well ness (AWV) Medicare Annual Wellness (AWV) [facility] Start: 01-28-2024 Urine screening for protein Diabetes: Urine Protein Screening [facility] Start: 01-22-2024 End: 01-22-2024 [facility] Start: 01-19-2024 Hemoglobin A1c measurement Diabetes: Hemoglobin A1C [facility] Start: 1968 Glaucoma screening Diabetes: R etinopathy Screening [facility] Start: 1964 Pneumococcal Vaccine : 65+ Years (1 - PCV) Pneumococcal Vaccine: 65+ Years (1 - PCV) [facility] Start: 1964 Pneumococcal Vaccine : 65+ Years (1 of 2 - PCV) Pneumococcal Vaccine: 65+ Years (1 of 2 - PCV) [facility] Start: 1958 Screening for malign ant neoplasm of colon [facility] Immunizations Immunization Date Immunization Notes Care Provider Fa [facility] 08-31-2023 Influenza, Seasonal, Quadrivalent, Adjuvanted Dejan CHURCH Work Phone: [facility] 08-02-2022 Influenza, injectabl e, Madin Angle Canine Kidney, preservative free, quadrivalent Dejan CHURCH Work Phone: [facility] 10-04-2021 Influenza, injectabl e, Madin [place] Canine Kidney, preservative free, quadrivalent Dejan CHURCH Work Phone: [facility] 08-24-2019 Influenza, injectabl e, Madin Angle Canine Kidney, preservative free, quadrivalent Dejan CHURCH Work Phone: [facility] 08-10-2017 influenza, injectabl e, quadrivalent, preservative free Dejan CHURCH Work Phone: [facility] 01-02-2017 influenza, injectabl e, madin angle canine kidney, preservative free Dejan CHURCH Work Phone: [facility] 10-14-2009 novel influenza-H1N1 -09, preservative-free, injectable Dejan CHURCH Work Phone: [facility] Payers Date Payer Category Payer Medicare [employer] MEDICARE ADVANTAGE [facility] MEDICARE ADVANTAGE [id number] 2023-Present [address] [place] [address] [id number] 2023 Self-pay 2015 [facility] [id number] 1959 Unknown [id number] 1958 Unknown [id number] 2.16.840.1.388194.3.579.2.5 1958 Unknown [id number] 2.16.840.1.176717.3.579.2.5 1958 Unknown [id number] 2.16.840.1.684262.3.579.2.5 1958 Unknown [id number] 2.16.840.1.937053.3.579.2.5 93 1958 Unknown [id number] 2.16.840.1.155507.3.579.2.5 93 1958 Unknown [id number] 2.16.840.1.534362.3.579.2.7 18 1958 Unknown [id number] 2.16.840.1.834348.3.579.2.7 18 1958 Unknown [id number] 2.16.840.1.864249.3.579.2.1 259 1958 Unknown [id number] 2.16.840.1.130234.3.579.2.1 259 1958 Unknown [id number] 2.16.840.1.179279.3.579.2.1 259 1958 Unknown [id number] 2.16.840.1.713769.3.579.2.1 259 1958 Unknown [id number] 2.16.840.1.100400.3.579.2.1 259 1958 Unknown [id number] 2.16.840.1.281228.3.579.2.1 259 1958 Unknown [id number] 2.16.840.1.125867.3.579.2.1 259 1958 Unknown [id number] 2.16.840.1.750924.3.579.2.1 259 1958 Unknown [id number] 2.16.840.1.604055.3.579.2.1 259 1958 Unknown [id number] 2.16.840.1.608455.3.579.2.1 259 1958 Unknown [id number] 2.16.840.1.414563.3.579.2.1 259 1958 Unknown [id number] 2.16.840.1.548558.3.579.2.1 259 1958 Unknown [id number] 2.16.840.1.622838.3.579.2.1 259 1958 Unknown [id number] 2.16.840.1.473140.3.579.2.1 259 1958 Unknown [id number] 2.16.840.1.634472.3.579.2.1 259 1958 Unknown [id number] 2.16.840.1.154106.3.579.2.1 259 1958 Unknown [id number] 2.16.840.1.164110.3.579.2.1 259 Medicare Medicare [id number] Unknown Unknown [id number] 2.16.840.1.070388.3.579.2.5 31 Social History Date Type Detail Facility Tobacco smoking stat [facility] Unknown if ever smoked [facility] Work Phone: Start: 1960 Sex Assigned At Male [facility] Start: 11-02-2023 End: 12-22-2023 Sex Assigned At [facility] [employer] Other Start: 12-19-2023 Tobacco smoking stat [facility] Ex-smoker [facility] End: 11-13-1989 History of tobacco use Current smoker [facility] End: 11-13-1989 History of tobacco use Cigarette Smoker [facility] Start: 11-02-2023 End: 12-19-2023 Cigarettes smoked current (pack per day) - Reported 1.5 [facility] Start: 12-19-2023 Tobacco use and exposure Smokeless tobacco non-user [facility] Start: 12-22-2023 End: 12-25-2023 Alcohol intake Lifetime non-drinker (finding) [facility] Within the last year , have you been afraid of your partner or ex-partner? No [facility] Are you now , , , , never or living with a partner? Never [facility] How often to you hav e a drink containing alcohol? Never [facility] How many standard drinks containing alcohol do you have on a typical day? Patient does not drink [facility] Do you feel stress - tense, restless, nervous, or anxious, or unable to sleep at night because your mind is troubled all the time - these days [OSQ] Not at all [facility] (I/We) worried wheth er (my/our) food would run out before (I/we) got money to buy more. Never true [facility] Start: 12-19-2023 Tobacco Comment Quit smoking > 10 years ago. 20-30 cigarettes/day [facility] Start: 1960 Sex Assigned At Not on file [facility] Clinical Notes 07-31-2023 to 12-22-2023 RANJIT Sheppard - 12/22/2023 10:45 AM ESTPatient Instructions Note Date & Type Note Facility 12-22-2023 History of Presen t illness Narrative Images from the original note were not included. HISTORY OF PRESENT ILLNESS: POST OP PT Robbin Bartlett is an 63 y.o. @ male. No surgery found s/p surgery onNo surgery found (EST PT) S/P (R) PATTI 11/08/23 (6WKS 2DAYS)- DOING WELL- CONTINUES PT @ [facility]; INCREASE ROM/STRENGTH- SOME DISCOMFORT HS- +ASA 81MG every day- AMBULATES UNASSISTED XRAY RT HIP TODAY CHANGE 12/22/23 REVIEW OF SYSTEMS: General: Denies fever, fatigue or weight loss Lungs: Denies SOB Cardio: Denies chest pain GI: Denies indigestion or abdominal pain Neuro: Denies numbness or tingling, denies new onset paralysis Musculoskeletal: ( see note) PHYSICAL EXAM: Right Ankle Exam Range of Motion Dorsiflexion: normal Plantar flexion: normal Muscle Strength The patient has normal right ankle strength. Dorsiflexion: 5/5 Plantar flexion: 5/5 Comments: Right Hip Exam Right hip exam is normal. Tenderness The patient is experiencing tenderness in the lateral (minmal soreness lateral hip). Range of Motion Right hip abduction: not stressed with recent surgery. Adduction: normal Extension: normal Flexion: normal Muscle Strength Adduction: 5/5 Flexion: 5/5 Other Erythema: absent Scars: present (Well healed, no discharge or drainage) Sensation: normal Pulse: present Comments: The operative lower extremity was neurovascularly intact without any sensorimotor deficits noted distal to the operative hip. Patient was able to motor feet, toes, ankle and knee in all anatomic planes with 5 out of 5 strength to the operative lower extremity with abduction stress testing not preformed secondary to surgery healing. Dorsalis pedis and posterior tibial pulses were present and equal bilaterally. Sensation to light touch was intact all dermatomes to lower extremities bilaterally. Negative Homans and negative Mal were noted bilaterally to lower extremities. There was no evidence of infection the lower extremities bilaterally. Compartments were soft to lower extremities bilaterally. XR hip right 2 or 3 views Imaging Result: XR hip right 2 or 3 views Imaging Result: Procedures Orders Placed This Encounter Procedures XR hip right 2 or 3 views Order Specific Question: Reason for exam: Answer: PAIN ASSESSMENT: ICD-10-CM 1. S/P total right hip arthroplasty Z96.641 amoxicillin (Amoxil) 500 MG tablet DISCONTINUED: amoxicillin (Amoxil) 500 MG tablet 2. Right hip pain M25.551 XR hip right 2 or 3 views PLAN: Pt please with surgery. Denies pain, walks well.. no cane.. recommend recheck gait in 4 weeks, patient doing home exercises in his pleased with progress, notes hip doing better than before surgery. Patient admits that he started dental work, we discussed risks of infection, patient will be prescribed antibiotics to take before. States there was middle of a bone graft and tooth implant. Patient verbalized my concern and will take antibiotic before procedure. Patient has documentation that we did not recommend any for elective dental treatments until 6 months postop. Questions answered in laymen terms at the bedside. The diagnosis, home exercise plan and any ongoing restrictions/ recommendations reviewed. If unable to be reached in office, I recommend evaluation at nearest Emergency Room if any symptoms worsened or new symptoms develop for requiring urgent evaluation. RANJIT Sheppard documented in this encounter [facility] 12-22-2023 Instructions RANJIT Sheppard - 12/22/2023 10:45 AM EST Discussed Hip Replacement Surgery- 6 week post operative visit: Xray of operative hip discussed at bedside. Reviewed Hip dislocation precautions: May start hip abduction with therapy. Reminded to hold off non urgent dental appts for 6 months post op Recommend Prophylactic Dental Antibiotics following 6 month period. documented in this encounter [facility] 11-10-2023 Note Education Materials POST OPERATIVE TOTAL KNEE/HIP DISCHARGE INTRUCTIONS SURGEONS WRITTEN INSTRUCTIONS: Walk with walker; bear weight to tolerance on operative extremity Elevate extremity 1 hour 3 times/day to control pain and swelling and apply cyrocuff Range of motion to ankle 10 times/hour Range of motion to knee hourly Change dressing daily. Reapply silver dressing for next four days then discontinue Ish hose (compression stockings) for 6 weeks Physical therapy as prescribed May shower, no tub bath. Do not rub/scrub incision. Wash gently Take Aspirin 81mg 2x daily to help prevent blood clots, coated or uncoated per patient preference. WHAT YOU SHOULD KNOW AFTER YOUR OPERATION: If you need pain pills, start before the pain becomes intense. Pain pills are frequently less upsetting to your stomach if you take them with food such as crackers or bread. If you have excessive or persistent pain, swelling, bleeding, nausea, vomiting or any other problems, you should first call your surgeon for advice. If you are unable to contact your surgeon, seek help from the emergency room. FOR THE PREVENTION OF DVT AFTER LOWER EXTREMITY SURGERY What is a DVT? There is always the risk of DVT after lower extremity surgery. DVT, or deep vein thrombosis, is a blood blot in a major vein that may partially or completely block the flow of blood. The clot occurs in the legs or pelvis, in areas where blood flow is slow, or in an injured blood vessel. DVT can be life-threatening should pieces of the clot break away and travel to the lungs. This is called pulmonary embolism What are the symptoms of DVT? The area affected by the blood clot may become swollen and painful, and possibly turn red as the normal flow of blood is blocked. You may also develop edema, which is the build up of fluid in the skin tissues surrounding the clot. If the clot is somewhere other than your leg, there may be no physical signs of DVT. If the clot breaks away and travels to your lungs, you may experience shortness of breath and chest pain. If this occurs you should call your doctor immediately or go to the emergency room. How can I prevent DVT? You should keep active. Moving the ankle and foot and bending the knee as tolerated when you are in bed and walking as tolerated. Take medication, especially the Aspirin, as prescribed by your doctor. What should I do if I think I have a DVT? You should call your doctor or go to the emergency room any time you have a sudden and unusual shortness of breath that is not related to exercise, exertion or anxiety. If you have swelling with redness and pain in your leg, you should call your doctor immediately. If there is concern then a test called ?Venous Doppler? can be done to rule of a DVT. #1 May shower and change dressing daily, no scrubbing or rubbing incision during shower just let the water run over the incision #2 stop smoking and drinking alcohol #3 ice to operative hip 20 minutes every hour while awake until pain and swelling control #4 flex and extend both feet/ankles 10 times per hour while awake #5 push both knees backwards into the bed 10 times every hour while awake, clench buttock muscles together 10 times every hour while awake #6 use walker weight-bear as tolerated to operative hip #7 No external rotation of the operative hip's foot, no kicking operative hip leg to the side, no flexion of operative hip past 90? #8 follow up in office with physician clinic office assistant Robinson Burt as scheduled #9 [facility] will be contacting you within the next 24 hours to set up home therapy visit #[address] Snell at the office [phone] or have him paged through the hospital single fold machine operator [phone] for any concerns or questions #[address] Snell if no bowel movement in 2 days Or if you're uncomfortable before that [facility] 11-10-2023 Note [facility] 2SOUT Clinical Discharge Summary PERSON INFORMATION Name ROBBIN BARTLETT Age 63 Years 1960 Sex MALE Language Syriac PCP Idalmis Adam CNP Marital Status Unknown Phone Med Service Observation Acct# Arrival 11/08/2023 08:03:44 Visit Reason SURGERY - RIGHT TOTAL HIP - DEPUY Acuity LOS 000 47:59 Address: [address] [place] [address] Comment: PROVIDER INFORMATION VITALS INFORMATION Vital Sign Triage Latest Temp Oral 36.7 DegC 36.8 DegC Temp Temporal 37.0 DegC 37.0 DegC Temp Intravascular Temp Axillary Temp Rectal 02 Sat 98 % 94 % Respiratory Rate 16 br/min 18 br/min Peripheral Pulse Rate 86 bpm 89 bpm Apical Heart Rate Blood Pressure 119 mmHg / 61 mmHg 135 mmHg / 72 mmHg Comment: MEDICAL INFORMATION Allergy Info: tetanus toxoid; penicillin Medication List: Medications That Were Updated - Follow Below Instructions Other Medications Updated: furosemide (furosemide 20 mg oral tablet) 1 tab(s) Oral (given by mouth) every other day. Updated: glyBURIDE (GlyBURIDE (Eqv-Micronase) 5 mg oral tablet) 2 tab(s) Oral (given by mouth) 2 times a day (scheduled). Updated: insulin lispro-insulin lispro protamine (HumaLOG Mix 75/25 KwikPen subcutaneous suspension) 53 unit(s) Subcutaneous (under the skin) At bedtime. Updated: lurasidone (Latuda 20 mg oral tablet) 1 tab(s) Oral (given by mouth) every day. TAKE WITH 80 MG FOR A TOTAL OF 100 MG A DAY.. Updated: lurasidone (Latuda 80 mg oral tablet) 1 tab(s) Oral (given by mouth) every day. TAKE WITH 20MG TABLET FOR A TOTAL OF 100MG A DAY. TAKE WITH FOOD (ATLEAST 350 CALORIES). Medications to Continue That Have Not Changed Other Medications atorvastatin (atorvastatin 40 mg oral tablet) 1 tab(s) Oral (given by mouth) every day. dulaglutide (Trulicity Pen 3 mg/0.5 mL subcutaneous solution) 3 Milligram Subcutaneous (under the skin) every week. Durable Medical Equipment for Prescription (MM PEN NEEDLES 31G X 5MM MIS) USE SUBCUTANEOUSLY TWICE DAILY DIRECTED. fexofenadine (fexofenadine 180 mg oral tablet) 1 tab(s) Oral (given by mouth) every day. fluocinonide topical (fluocinonide 0.05% topical solution) APPLY TO AFFECTED AREAS ON SCALP TWICE DAILY NEEDED FOR FLARES ONLY. gabapentin (gabapentin 300 mg oral capsule) 1 cap(s) Oral (given by mouth) 3 times a day (scheduled). lamoTRIgine (lamoTRIgine 150 mg oral tablet) 1 tab(s) Oral (given by mouth) 2 times a day (scheduled). losartan (losartan 50 mg oral tablet) 1 tab(s) Oral (given by mouth) every day. metFORMIN (metFORMIN 1000 mg oral tablet) 1 tab(s) Oral (given by mouth) 2 times a day (scheduled). sertraline (sertraline 50 mg oral tablet) 1 tab(s) Oral (given by mouth) every day. tiZANidine (tiZANidine 4 mg oral tablet) 1 tab(s) Oral (given by mouth) At bedtime as needed muscle spasm. No Longer Take the Following Medications ibuprofen (ibuprofen 600 mg oral tablet) TAKE 1 TABLET BY MOUTH TWICE DAILY NEEDED WITH FOOD. Comment: Lab and Radiology Results Laboratory or Other Results This Visit (last charted value for your 11/08/2023 visit) Hematology 11/10/2023 4:17 AM Hct: 27.0 % -- Normal range between ( 34.8 and 51.9 ) Hgb: 9.6 gm/dL -- Normal range between ( 11.8 and 17.7 ) MCH: 35 pg -- Normal range between ( 24 and 34 ) MCHC: 36 gm/dL -- Normal range between ( 26 and 37 ) MCV: 97 fL -- Normal range between ( 81 and 100 ) MPV: 8.6 fL -- Normal range between ( 6.3 and 10.2 ) Platelet: 158 x103/mcL -- Normal range between ( 138 and 427 ) RBC: 2.77 x106/mcL -- Normal range between ( 3.70 and 5.30 ) RDW: 13.2 % -- Normal range between ( 11.5 and 15.0 ) WBC: 6.7 x103/mcL -- Normal range between ( 3.5 and 10.5 ) Auto Eos %: 3.3 % -- Normal range between ( 0.9 and 4.0 ) Auto Lymph %: 9 % -- Normal range between ( 14 and 48 ) Auto Neut %: 80 % -- Normal range between ( 44 and 88 ) Eos Abs#: 0.2 x103/mcL -- Normal range between ( 0.0 and 0.4 ) Lymph Abs#: 0.6 x103/mcL -- Normal range between ( 1.3 and 2.9 ) Denali Abs#: 0.5 x103/mcL -- Normal range between ( 0.0 and 0.8 ) Auto Baso %: 0.3 % -- Normal range between ( 0.2 and 2.0 ) Auto Denali %: 7 % -- Normal range between ( 1 and 12 ) Baso Abs#: 0.0 x103/mcL -- Normal range between ( 0.0 and 0.2 ) Neut Abs#: 5.3 x103/mcL -- Normal range between ( 1.5 and 9.2 ) Chemistry 11/10/2023 7:10 AM Glucose, POC: 195 mg/dL -- Normal range between ( 74 and 118 ) 11/10/2023 4:17 AM Chloride Level: 101 mmol/L -- Normal range between ( 101 and 111 ) CO2: 27 mmol/L -- Normal range between ( 21 and 32 ) Potassium Level: 4.3 mmol/L -- Normal range between ( 3.6 and 5.1 ) Sodium Level: 135.0 mmol/L -- Normal range between ( 136.0 and 144.0 ) Anion Gap: 11.3 mmol/L -- Normal range between ( 5.0 and 19.0 ) Diagnostic Radiology 11/08/2023 2:15 PM XR Hip 1 View Rt w/ Pelvis: XR Hip 1 View Rt w/ Pelvis Radiology Report 11/08/2023 2:15 PM Radiology Report: Radiology Report (more content not included)... [facility] 11-08-2023 Note [id number] [facility] 10-12-2023 Note CLINICAL HISTORY: Pr eoperative evaluation. Former smoker. COMPARISON: None available. TECHNIQUE: Upright PA and lateral radiographs of the chest were obtained. FINDINGS: There is no significant pulmonary infiltrate, cardiomegaly, pleural effusion, vascular congestion, pneumothorax, or displaced fractures identified. Degenerative changes, of the thoracic spine and cervical spine hardware are noted. IMPRESSION: NO EVIDENCE OF ACTIVE CARDIOPULMONARY DISEASE. Final Signed (Electronic Signature): Anjum Velazquez MD 10/13/23 5:34 am Technologist: Alexandra COLLIER [facility] 10-12-2023 Note CLINICAL HISTORY: Pa in. Preoperative evaluation. COMPARISON: None available. TECHNIQUE: AP and lateral radiographs of the right hip were obtained. FINDINGS: Moderate to marked osteoarthritic changes are present of the right hip. There is no displaced fracture, dislocation, evidence of avascular necrosis, or other findings of concern identified. IMPRESSION: MODERATE TO MARKED RIGHT HIP OSTEOARTHROSIS. Final Signed (Electronic Signature): Anjum Velazquez MD 10/13/23 5:33 am Technologist: Alexandra COLLIER [facility] 07-31-2023 Evaluation note Encounter Date Diagnosis Assessment Notes Jul, Acute pain of right knee (ICD-10 - M25.561) [facility] [employer] Other evaluation noteNo assessment information available [facility] Work Phone: Evaluation noteNo [facility] [employer] Other evalxntpcy note* Diagnosis S/P total right hip arthroplasty- Primary Right hip pain Pain in joint, pelvic region and thigh [facility] Diagnosis Type 2 diabetes mellitus with peripheral neuropathy (CMS/HCC)- Primary Cervical pain (neck) Cervicalgia [facility] Diagnosis Type 2 diabetes mellitus with peripheral neuropathy (CMS/HCC)- Primary Cervical pain (neck) Cervicalgia documented in this [facility] N[facility]ative - Reported* Type Description Date Medical History type 1 diabetes Medical History hypertension Medical History low cholesterol Medical History chronic depression Medical History anxiety Surgical History knee x3 Surgical History radial/ulnar neuropathy Surgical History hand surgery x 4 Surgical History shoulder x 3 Surgical History appendix Surgical History gallbladder Surgical History hernia x2 Surgical History neck Surgical History tumor chin Hospitalization History surgeries [facility] [employer] Other Summary Purpose Family History No Family History Records FoundNo Family History Records FoundNo Family History Records FoundNo Family History Records FoundNo Family History Records Found Advance Directives No Advanced Directives Records Found Advance Directive Response Recorded Date/ Time Advance Directives No April 21 4:57pm Chief Complaint and Reason for Visit Chief Complaint r29.898 r20.2 Reason for Referral Reason evaluate and treat Diagnosis 1 Acute pain of right knee (M25.561) Referral Organization [facility] uros[facility]gery Referring Provider First Name Rasheeda Referring Provider Last Name Blades Referring Provider Specialty Neurologica l Surgery Referred Organization Unknown Facility Referred Provider Jin Randolph Referred Provider Specialty Orthopaedic Surgery Referral Priority Routine General Notes Blaise Mantilla i 10/02/2023 08:37:02 AM > provider is with the [facility] Kathleen Lazo 10/02/2023 03:09:16 PM >received today, tried to contact Dr. Randolph's office [phone] to inquire their process for referrals, was advised that they could schedule the appointment by phone but since patient has had previous surgery to the knee they need to know when that surgery was performed before an appointment can be scheduled for him. Called patient and he said that his last surgery on this particular knee was 8 years ago and was just arthroscopy. He is concerned about driving distance for this physician, I told him that I would try and get him scheduled at the closest location, patient said he is willing to drive an hour but not much more than that. He also said that he is scheduled to have hip replacement done on 11/08/23 so will need consult before that but if it can't be done before that then he may need me to wait for him to get through the hip surgery and his recovery after before scheduling anything. Clinical Notes ph: [phone] 8 years ago arthroscopy Reason evaluate and treat Diagnosis 1 Degenerative disc di sease, lumbar (M51.36) Referral Organization [facility] urosurgery Referring Provider First Name Rasheeda Referring Provider Last Name Hina Referring Provider Specialty Neurologica l Surgery Referred Organization [facility] Referred Provider ARIAN US Referred Address [address] [place] [address] [place],[address] Referred Provider Specialty General Surg rey Referral Priority Routine Additional Source Comments (unrecognized sect ion and content) No Status Records FoundNo Status Records FoundNo Status Records FoundNo Status Records FoundNo Status Records Found INFORMATION SOURCE (unrecogn ized section and content) DATE CREATED AUTHOR 05/07/2018 [facility] DATE CREATED AUTHOR AUTHOR'S ORGANIZ ATION 03/10/[address] [facility] pital DATE CREATED AUTHOR AUTHOR'S ORGANIZ ATION 11/16/2023 [facility] DATE CREATED AUTHOR AUTHOR'S ORGANIZ ATION 07/26/2024 [facility] EPIC DATE CREATED AUTHOR AUTHOR'S ORGANIZ ATION 08/08/2024 [facility] ysician Group Care Teams (unrecognized sec tion and content) Team Status: Active Member Role Status Dates NON STAFF Primary Care Provider Active Team Status: Active Member Role Status Dates NON STAFF Primary Care Provider Active Naima Mcdonald MD Attending Provider Active Team Status: Inactive Member Role Status Dates NON STAFF Primary Care Provider Active Jose Kendall NP-C Attending Provider Active Music Education Adjunct Professor Relationship Specialty Start Date End Date Idalmis Adam NP [address] [place] [address] PCP - Donny BENNETT 09/13/23 Baljinder Pineda MD [address] [place] [address] PCP - General Family Medicine 12/20/23 Idalmis Adam NP [address] [place] [address] Referring Physician Family Medicine 09/01/23 Music Education Adjunct Professor Relationship Specialty Start Date End Date Idalmis Adam NP [address] [place] [address] PCP - Donny BENNETT 09/13/23 Baljinder Pineda MD [address] [place] [address] PCP - General Family Medicine 12/20/23 Idalmis Adam NP [address] [place] [address] Referring Physician Family Medicine 09/01/23 Music Education Adjunct Professor Relationship Specialty Start Date End Date Idalmis Adam NP [address] [place] [address] PCP - Donny BENNETT 09/13/23 Baljinder Pineda MD [address] [place] [address] PCP - General Family Medicine 12/20/23 Idalmis Adam NP [address] [place] [address] Referring Physician Family Medicine 09/01/23 Goals (unrecognized section and content) Goals may be documented in a n alternate sectionNo InformationNo Information REASON FOR VISIT (unrecogniz ed section and content) Reason Comments Pain FOR RECORDS PERTAINING TO PATIENTS WHO ARE OR HAVE BEEN ENROLLED IN A CHEMICAL DEPENDENCY/SUBSTANCEABUSE PROGRAM, SOME INFORMATION MAY BE OMITTED. This clinical summary was aggregated from multiple sources. Caution should be exercised in using it in the provision of clinical care. This summary normalizes information from multiple sources, and as a consequence, information in this document may materially change the coding, format and clinical context of patient data. In addition, data may be omitted in some cases. CLINICAL DECISIONS SHOULD BE BASED ON THE PRIMARY CLINICAL RECORDS. [employer] provides no warranty or guarantee of the accuracy or completeness of information in this document.
[2024-09-03 09:01] LABS: Anion Gap 15.1; BUN Creatinine Ratio 14.1; Calcium 9.5 mg/dL (8.5-10.1); Carbon Dioxide 25.2 mmol/L (21.0-32.0); Chloride 106 mmol/L (98-107); Estimated GFR (African America >60 (>=60 mL/min/1.73m^2); Estimated GFR (Non-African Ame 50 (>=60 mL/min/1.73m^2); Glucose 51 mg/dL (74-106); Potassium 4.3 mmol/L (3.5-5.1); Sodium 142 mmol/L (136-145)
[2024-09-03 09:30] LABS: Estimated Average Glucose 128 mg/dL; Glycohemoglobin A1C 6.1 % (4.5-6.2)
== END 2024-09-03 08:23 | disposition home or self-care (01) ==
LOC: LAB 08:23
PROVIDERS: PCP Nurse Practitioner; Visit Provider Nurse Practitioner
DX: Z79.4 Long term (current) use of insulin (principal); E11.9 Type 2 diabetes mellitus without complications
CPT/HCPCS: 36415; 80048; 83036

== ENCOUNTER 2025-05-22 10:17 | Outpatient (OUT) | payer MEDICARE, SELFPAY ==
--- OUTSIDE RECORDS SUMMARY | 2025-05-22 10:24 | XMS_ITS | Encounter Summary ---
Author Organization [facility] Address [address] [place] [address] Care Team Providers Care Aging Room Hand Name Role Phone Idalmis Adam BOOKMAKER'S CLERK Unavailable [phone] Baljinder Pineda MD Primary Care Provider [phone] Idalmis Adam BOOKMAKER'S CLERK Unavailable [phone] Baljinder Pineda MD Primary Care Provider [phone] Kai Dumont CREDIT COORDINATOR Unavailable Unavailable Tosha Mesa CREDIT COORDINATOR Unavailable Unallocated, [facility] Provider Primary Care Provi senia Umesh Aquino MD Primary Care Provider [phone] Encounter Details Date Type Department Care Team (Late st Contact Info) Description 10/22/2023 Abstract [facility] [address] [place] [address] Idalmis Adam, BOOKMAKER'S CLERK [address] [place] [address] Social History Tobacco Use Types Packs/Day Years Used Date Smoking Tobacco: Former Cigarettes Q uit: 1989 Smokeless Tobacco: Never Tobacco Cessation:Counseling Given: Not Answered Comments:20-30 cigarettes/day Alcohol Use Standard Drinks/Week Comments Never 0 (1 standard drink = 0.6 oz pur e alcohol) Sex and Gender Information Value Date Recorded Sex Assigned at Not on file Legal Sex Male 8:21 PM EDT Gender Identity Not on file Sexual Orientation Not on file documented as of this encounter Plan of Treatment Upcoming Encounters Date Type Department Care Team (Late st Contact Info) Description 06/02/2025 1:15 PM EDT Procedure Visit [facility] [address] [place] [address] Yesi Coleman DPM [address] [place] [address] 01/18/2027 1:00 PM EST Office Visit [facility] [address] [place] [address] Romeo Burt, PA [address] [place] [address] documented as of this encounter Visit Diagnoses Not on filedocumented in this encounter Care Teams Aging Room Hand Relationship Specialty Start Date End Date Baljinder Pineda MD PCP - General Family Medicine 10/31/23 12/19/23 Idalmis Adam NP [address] [place] [address] PCP - Donny BENNETT 09/13/23 Baljinder Pineda MD [address] [place] [address] PCP - General Family Medicine 12/20/23 09/03/24 Unallocated, Loco Urban MD [address] [place] [address] PCP - General Family Medicine 09/04/24 10/15/24 Umesh Aquino MD [address] [place] [address] PCP - General Family Medicine 10/16/24 Idalmis Adam NP Referring Physician Family Medicine 09/01/23 10/15/24 Kai Dumont LPN Licensed Practical Nurse Family Medicine 04/25/24 Tosha Mesa LPN [address] [place] [address] Licensed Practical Nurse Family Medicine 07/26/2408/14 documented as of this encounter
--- OUTSIDE RECORDS SUMMARY | 2025-05-22 10:24 | XMS_ITS | Encounter Summary ---
Author Organization [facility] Address [address] [place] [address] Care Team Providers Care Group Controller Name Role Phone Idalmis Adam BUTTON PUNCHER Unavailable [phone] Idalmis Adam BUTTON PUNCHER Unavailable [phone] Baljinder Pineda MD Primary Care Provider [phone] Kai Dumont BOX ANNEALER Unavailable Unavailable Tosha Mesa BOX ANNEALER Unavailable Unallocated, Noms Provider Primary Care Provi senia Umesh Aquino MD Primary Care Provider [phone] Reason for Visit * Reason Comments Med Refill Encounter Details Date Type Department Care Team (Late st Contact Info) Description 04/17/2024 Refill [facility] [address] [place] [address] Idalmis Adam, BUTTON PUNCHER [address] [place] [address] Social History Tobacco Use Types Packs/Day Years Used Date Smoking Tobacco: Former Cigarettes Q uit: 1989 Smokeless Tobacco: Never Comments:Quit smoking >10 ye ars ago. 20-30 cigarettes/day Alcohol Use Standard Drinks/Week Comments Never 0 (1 standard drink = 0.6 oz pur e alcohol) Humiliation, Afraid, Rape, and Kick questionnair e Answer Date Recorded Within the last year, have y ou been afraid of your partner or ex-partner? No 11/02/2023 Within the last year, have y ou been humiliated or emotionally abused in other ways by your partner or ex-partner? No Within the last year, have y ou been kicked, hit, slapped, or otherwise physically hurt by your partner or ex-partner? No 11/02/2023 Within the last year, have y ou been raped or forced to have any kind of sexual activity by your partner or ex-partner? No 11/02/2023 Social Connection and Isolation Panel [NHANES] A nswer Date Recorded In a typical week, how many times do you talk on the phone with family, friends, or neighbors? Twice a week 11/02/2023 How often do you get together with friends or re latives? Once a week 11/02/2023 How often do you attend jainism or anabaptist serv ices? Never 11/02/2023 Do you belong to any clubs o r organizations such as jainism groups, unions, fraternal or athletic groups, or school groups? No 11/02/2023 How often do you attend meet ings of the clubs or organizations you belong to? Never 11/02/2023 Are you , , di vorced, , never , or living with a partner? Never 11/02/2023 AUDIT-C Answer Date Recorded Q1: How often do you have a drink containing alcohol? Never 11/02/2023 Q2: How many drinks containi ng alcohol do you have on a typical day when you are drinking? Patient does not drink Q3: How often do you have si x or more drinks on one occasion? Never 11/02/2023 Overall Financial Resource Strain (CARDIA) Answe r Date Recorded How hard is it for you to pa y for the very basics like food, housing, medical care, and heating? Not hard at all 11/02/2023 [facility] of Occupat ional Health - Occupational Stress Questionnaire Answer Date Recorded Do you feel stress - tense, restless, nervous, or anxious, or unable to sleep at night because your mind is troubled all the time - these days? Not at all 11/02/2023 Exercise Vital Sign Answer Date Recorde d On average, how many days pe r week do you engage in moderate to strenuous exercise (like a brisk walk)? 0 days 11/02/2023 On average, how many minutes do you engage in exercise at this level? 0 min 11/02/2023 Hunger Vital Sign Answer Date Recorded Within the past 12 months, y ou worried that your food would run out before you got the money to buy more. Never true 11/02/20 23 Within the past 12 months, t he food you bought just didn't last and you didn't have money to get more. Never true 11/02/2023 PRAPARE - Transportation Answer Date Re corded In the past 12 months, has l ack of transportation kept you from medical appointments or from getting medications? No 10/14 In the past 12 months, has l ack of transportation kept you from meetings, work, or from getting things needed for daily living? No 11/02/2023 Housing Stability Vital Sign Answer Kenton e Recorded In the last 12 months, was t here a time when you were not able to pay the mortgage or rent on time? No 11/02/2023 In the last 12 months, how many places have you lived? 1 11/02/2023 In the last 12 months, was t here a time when you did not have a steady place to sleep or slept in a fci (including now)? No 11/02/2023 Sex and Gender Information Value Date Recorded Sex Assigned at Not on file Legal Sex Male 8:21 PM EDT Gender Identity Not on file Sexual Orientation Not on file documented as of this encounter Plan of Treatment Upcoming Encounters Date Type Department Care Team (Late st Contact Info) Description 06/02/2025 1:15 PM EDT Procedure Visit [facility] [address] [place] [address] Yesi Coleman DPM [address] [place] [address] 01/18/2027 1:00 PM EST Office Visit [facility] [address] [place] [address] Romeo Burt, RANJIT [address] [place] [address] documented as of this encounter Visit Diagnoses Not on filedocumented in this encounter Additional Health Concerns Assessment Noted Time PHQ-9 Depression Total Score: 2 11/02/20 23 1:00 PM EST documented as of this encounter Care Teams Group Controller Relationship Specialty Start Date End Date Idalmis Adam NP [address] [place] [address] PCP - Donny BENNETT 09/13/23 Baljinder Pineda MD [address] [place] [address] PCP - General Family Medicine 12/20/23 09/03/24 Unallocated, Noms MD [place] [address] [place] [address] PCP - General Family Medicine 09/04/24 10/15/24 Umesh Aquino MD [address] [place] [address] PCP - General Family Medicine 10/16/24 Idalmis Adam NP Referring Physician Family Medicine 09/01/23 10/15/24 Kai Dumont LPN Licensed Practical Nurse Family Medicine 04/25/24 Tosha Mesa LPN [address] [place] [address] Licensed Practical Nurse Family Medicine 07/26/2408/14 documented as of this encounter
--- OUTSIDE RECORDS SUMMARY | 2025-05-22 10:24 | XMS_ITS | Encounter Summary ---
Author Organization [facility] Address [address] [place] [address] Care Team Providers Care Assembler Billiard Table Name Role Phone Idalmis Adam PIPE BOWL PAINT TRIMMER Unavailable [phone] Idalmis Adam PIPE BOWL PAINT TRIMMER Unavailable [phone] Baljinder Pineda MD Primary Care Provider [phone] Kai Dumont DENTAL ASSISTANT MEDICAL ASSISTANT Unavailable Unavailable Tosha Mesa DENTAL ASSISTANT MEDICAL ASSISTANT Unavailable Unallocated, Noms Provider Primary Care Provi senia Umesh Aquino MD Primary Care Provider [phone] Reason for Visit * Reason Comments Med Refill Encounter Details Date Type Department Care Team (Late st Contact Info) Description 07/20/2024 Refill [facility] [address] [place] [address] Idalmis Adam, PIPE BOWL PAINT TRIMMER [address] [place] [address] Type 2 diabetes mellitus with insulin therapy (HCC) Social History Tobacco Use Types Packs/Day Years Used Date Smoking Tobacco: Former Cigarettes Q uit: 1989 Smokeless Tobacco: Never Comments:Quit smoking >10 ye ars ago. 20-30 cigarettes/day Alcohol Use Standard Drinks/Week Comments Never 0 (1 standard drink = 0.6 oz pur e alcohol) B1300 Health Literacy Answer Date Recor ded How often do you need to hav e someone help you when you read instructions, pamphlets, or other written material from your doctor or pharmacy? Never 05/03/2024 Humiliation, Afraid, Rape, and Kick questionnair e [...] week 11/02/2023 How often do you attend evangelical or latter day serv ices? Never 11/02/2023 Do you belong to any clubs o r organizations such as evangelical groups, unions, fraternal or athletic groups, or [...] and heating? Not hard at all 11/02/2023 [facility] [place] of Occupat ional Health - Occupational Stress [...] place to sleep or slept in a m[facility]p (including now)? No 11/02/2023 Sex and Gender Information Value Date Recorded Sex Assigned at Not on file Legal Sex Male 8:21 PM EDT Gender Identity Not on file Sexual Orientation Not on file documented as of this encounter Plan of Treatment Upcoming Encounters Date Type Department Care Team (Late st Contact Info) Description 06/02/2025 1:15 PM EDT Procedure Visit [facility] [address] [place] [address] Yesi Coleman DPM [address] [place] [address] 01/18/2027 1:00 PM EST Office Visit [facility] [address] [place] [address] Romeo Burt PA [address] [place] [address] documented as of this encounter Visit Diagnoses Diagnosis Type 2 diabetes mellitus with insulin therapy (HCC) documented in this encounter Additional Health Concerns Assessment Noted Time PHQ-9 Depression Total Score: 2 11/02/20 23 1:00 PM EST A fall risk assessment has been complete d for the patient 05/03/2024 8:54 AM EDT documented as of this encounter Care Teams Assembler Billiard Table Relationship Specialty Start Date End Date Idalmis Adam, DEVON [address] [place] [address] PCP - Donny BENNETT 09/13/23 Baljinder Pineda MD [address] [place] [address] PCP - General Family Medicine 12/20/23 09/03/24 Unallocated, Noms MD [address] [place] [address] PCP - General Family Medicine 09/04/24 10/15/24 Umesh Aquino MD [address] [place] [address] PCP - General Family Medicine 10/16/24 Idalmis Adam NP Referring Physician Family Medicine 09/01/23 10/15/24 Kai Dumont LPN Licensed Practical Nurse Family Medicine 04/25/24 Tosha Mesa LPN [address] [place] [address] Licensed Practical Nurse Family Medicine 07/26/2408/14 documented as of this encounter
--- OUTSIDE RECORDS SUMMARY | 2025-05-22 10:24 | XMS_ITS | Encounter Summary ---
Author Organization [facility] Address [address] [place] [address] Care Team Providers Care Manager Search Engine Name Role Phone Idalmis Adam PUBLIC EMPLOYMENT MEDIATOR Unavailable [phone] Baljinder Pineda MD Primary Care Provider [phone] Idalmis Adam NP Unavailable [phone] Baljinder Pineda MD Primary Care Provider [phone] Kai Dumont KEY HOLDER Unavailable Unavailable Tosha Mesa KEY HOLDER Unavailable Unallocated, [facility] Provider Primary Care Provi senia Umesh Aquino MD Primary Care Provider [phone] Encounter Details Date Type Department Care Team (Late st Contact Info) Description 11/14/2023 Orders Only [facility] [address] [place] [address] Idalmis Adam NP [address] [place] [address] Social History Tobacco Use Types Packs/Day Years Used Date Smoking Tobacco: Former Cigarettes Q uit: 1989 Smokeless Tobacco: Never Comments:20-30 cigarettes/da y Alcohol Use Standard Drinks/Week Comments Never 0 [...] week 11/02/2023 How often do you attend congregational or pentecostal serv ices? Never 11/02/2023 Do you belong to any clubs o r organizations such as congregational groups, unions, fraternal or athletic groups, or [...] and heating? Not hard at all 11/02/2023 [facility] [place] of Occupat ional Health - Occupational Stress [...] 06/02/2025 1:15 PM EDT Procedure Visit [facility] [address] [place] [address] Yesi Coleman DPM [address] [place] [address] 01/18/2027 1:00 PM EST Office Visit [facility] [address] [place] [address] Romeo Burt PA [address] [facility] [place] [address] documented as of this encounter Procedures Procedure Name Priority Date/Time Associated Diagnosis Comments ELECTROCARDIOGRAM REPORT Routine 12/01/2 023 1:11 PM EST documented in this encounter Results * Electrocardiogram Report (10/13/2023 1:11 PM EST) us Idalmis Adam PUBLIC EMPLOYMENT MEDIATOR IN CLINIC/BEDSIDE ORDERABLES Fi nal Result documented in this encounter Visit Diagnoses Not on filedocumented in this encounter Additional Health Concerns Assessment Noted Time PHQ-9 Depression Total Score: 2 11/02/20 23 1:00 PM EST documented as of this encounter Care Teams Manager Search Engine Relationship Specialty Start Date End Date Baljinder Pineda MD PCP - General Family Medicine 10/31/23 12/19/23 Idalmis Adam NP [address] [place] [address] PCP - Donny BENNETT 09/13/23 Baljinder Pineda MD [address] [place] [address] PCP - General Family Medicine 12/20/23 09/03/24 Unallocated, [facility] Provider, [address] [place] [address] PCP - General Family Medicine 09/04/24 10/15/24 Umesh Aquino MD [address] [place] [address] PCP - General Family Medicine 10/16/24 Idalmis Adam NP Referring Physician Family Medicine 09/01/23 10/15/24 Kai Dumont LPN Licensed Practical Nurse Family Medicine 04/25/24 Tosha Mesa LPN [address] [place] [address] Licensed Practical Nurse Family Medicine 07/26/2408/14 documented as of this encounter
--- OUTSIDE RECORDS SUMMARY | 2025-05-22 10:24 | XMS_ITS | Encounter Summary ---
Author Organization [facility] Address [address] [place] [address] Care Team Providers Care Shirring Tender Name Role Phone Idalmis Adam TOMBSTONE ERECTOR HELPER Unavailable [phone] Idalmis Adam TOMBSTONE ERECTOR HELPER Unavailable [phone] Baljinder Pineda MD Primary Care Provider [phone] Kai Dumont PUMPER HAND Unavailable Unavailable Tosha Mesa PUMPER HAND Unavailable Unallocated, [facility] Provider Primary Care Provi senia Umesh Aquino MD Primary Care Provider [phone] Reason for Visit * Reason Comments Med Refill Encounter Details Date Type Department Care Team (Late st Contact Info) Description 04/14/2024 Refill [facility] [address] [place] [address] Idalmis Adam, TOMBSTONE ERECTOR HELPER [address] [place] [address] Social History Tobacco Use Types Packs/Day Years [...] week 11/02/2023 How often do you attend moravian or roman catholic serv ices? Never 11/02/2023 Do you belong to any clubs o r organizations such as moravian groups, unions, fraternal or athletic groups, or [...] and heating? Not hard at all 11/02/2023 [facility] [place] of Occupat ional Health - Occupational Stress [...] place to sleep or slept in a correction (including now)? No 11/02/2023 Sex and Gender Information Value Date Recorded Sex Assigned at Not on file Legal Sex Male 8:21 PM EDT Gender Identity Not on file Sexual Orientation Not on file documented as of this encounter Plan of Treatment Upcoming Encounters Date Type Department Care Team (Late st Contact Info) Description 06/02/2025 1:15 PM EDT Procedure Visit [facility] [address] [place] [address] Yesi Coleman DPM [address] [place] [address] 01/18/2027 1:00 PM EST Office Visit [facility] [address] [place] [address] Romeo Burt, RANJIT [address] [place] [address] documented as of this encounter Visit Diagnoses Not on filedocumented in this encounter Additional Health Concerns Assessment Noted Time PHQ-9 Depression Total Score: 2 11/02/20 23 1:00 PM EST documented as of this encounter Care Teams Shirring Tender Relationship Specialty Start Date End Date Idalmis Adam NP [address] [place] [address] PCP - Donny BENNETT 09/13/23 Baljinder Pineda MD [address] [place] [address] PCP - General Family Medicine 12/20/23 09/03/24 Unallocated, Noms MD [place] [address] [place] [address] PCP - General Family Medicine 09/04/24 10/15/24 Umesh Aquino MD [address] [place] [address] PCP - General Family Medicine 10/16/24 Idalmis Adam NP Referring Physician Family Medicine 09/01/23 10/15/24 Kai Dumont LPN Licensed Practical Nurse Family Medicine 04/25/24 Tosha Mesa LPN [address] [place] [address] Licensed Practical Nurse Family Medicine 07/26/2408/14 documented as of this encounter
[2025-05-22 10:47] LABS: Hematocrit 35.1 % (42.0-54.0); Hemoglobin 12.3 g/dL (14.0-18.0); Immature Granulocytes Abs Auto 0.01 10^3/uL (0.00-0.03); Immature Granulocytes Pct Auto 0.2 % (0.0-0.5); Lymphocytes Absolute Auto 1.7 10^3/uL (1.2-3.8); Mean Corpuscular HGB Conc 35.0 g/dL (29.9-35.2); Mean Corpuscular Hemoglobin 34.3 pg (25.9-34.0); Mean Corpuscular Volume 97.8 fL (80.0-94.0); Platelet Count 175 10^3/uL (150-450); Red Blood Count 3.59 10^6/uL (4.70-6.10); White Blood Count 6.0 10^3/uL (4.0-11.0)
== END 2025-05-22 10:18 | disposition home or self-care (01) ==
LOC: LAB 10:23
DX: H02.882 Meibomian gland dysfunction right lower eyelid (principal); H02.884 Meibomian gland dysfunction left upper eyelid; H57.813 Brow ptosis, bilateral
CPT/HCPCS: 36415; 85025

== ENCOUNTER 2025-05-30 15:16 | Emergency (ER) | payer MEDICARE, SELFPAY ==
--- NOTE | 2025-05-30 15:21 | XR_ITS ---
The [address] [address] Patient Name: SHALINI BARTLETT MRN: [id number] date: 1960 Sex: M Assigned Patient Location: ED.MAIN Current Patient Location: ED.MAIN Accession/Order Number: [id number] Exam Date: 05/30/2025 16:33 Report Date: 05/30/2025 16:34 At the request of: VLADIMIR ELLINGTON Procedure: XR shoulder LT min 2V XR shoulder LT min 2V 05/30/2025 4:18 PM SIGNS AND SYMPTOMS: Fall hitting left shoulder PROTOCOL: Frontal, Grashey, and scapular Y views of the left shoulder COMPARISON: None FINDINGS: Mild hypertrophic changes are noted in the acromioclavicular joint. There is moderate narrowing of the glenohumeral joint. Bony structures are separate from the rotator cuff insertion suggesting an avulsion type injury. There is a mildly displaced fracture of the neck of the humerus. The visualized left hemithorax is grossly intact. There is anterior fusion hardware in the lower cervical spine. XR/XR shoulder LT min 2V IMPRESSION: There is a minimally displaced transverse aortic fracture of neck of humerus. Degenerative changes are noted in the left shoulder as above. Bony structures are separate from the rotator cuff insertion suggesting an avulsion type injury. Impression dictated by: Garrison Blanco M.D. 05/30/2025 4:34 PM Dictation Location: [place] [address] Electronically authenticated by: [id number] Y Date: 05/30/2025 16:34
[2025-05-30 15:22] VITALS: BP 149/78; PULSE 76; TEMP 36.7; O2SAT 95; BMI 36.9
--- OUTSIDE RECORDS SUMMARY | 2025-05-30 15:23 | XMS_ITS | Clinical Summary ---
Author Organization [facility] Address [address] [place] [address] Care Team Providers Care Pull Worker Name Role Phone EmyarielbrendaColeen worleyshae OSORIO Unavailable [phone] Umesh Aquino MD Primary Care Provider Allergies Active Allergy Reactions Criticality Noted Date Comments Penicillins Hives,Swelling 09/01/2023 Tetanus Toxoids Hives,Swelling 09/01/2023 Medications lamoTRIgine (LaMICtal) 150 MG tablet Take 2 tablets by mouth in the morning. 08/14/20 23 Active Latuda 20 MG tablet TAKE 1 TABLET BY MOUTH ONCE DAILY (TAKE IN ADDITION TO 80MG TABLET TO EQUAL 100MG) 08/14/20 23 Active Latuda 80 MG tablet TAKE 1 TABLET BY MOUTH ONCE DAILY WITH FOOD (ATLEAST 350 CALORIES) 08/14/20 23 Active B-D UF III MINI PEN NEEDLES 31G X 5 MM misc 02/26/20 24 Active tiZANidine (Zanaflex) 4 MG tabletIndication s:Cervical pain (neck) TAKE 1 TABLET BY MOUTH AT BEDTIME NEEDED FOR MUSCLE SPASMS 90 tablet 04/01/20 24 Active sertraline (Zoloft) 100 MG tablet Take 100 mg by mouth at bedtime 03/26/20 24 Active fexofenadine (Deb) 180 MG tabletIndication s:Environmental and seasonal allergies Take 1 tablet (180 mg) by mouth Daily 90 tablet 1 05/14/20 24 Active Semaglutide,0.25 or 0.5MG/DOS, (Ozempic, 0.25 or 0.5 MG/DOSE,) 2 MG/3ML solution pen-injectorIndi cations:Type 2 diabetes mellitus with insulin therapy (HCC) 0.5 mg by Other route every 7 (seven) days for 28 days 3 mL 2 07/08/20 24 Active insulin lispro protamine-insuli n lispro (HumaLOG MIX 75/25 KWIKPEN) (75-25) 100 UNIT/ML injectionIndicat ions:Type 2 diabetes mellitus with insulin therapy (HCC) INJECT 53 UNITS SUBCUTANEOUSLY ONCE DAILY 18 each 1 07/22/20 24 Active chlorhexidine (Peridex) 0.12 % solution RINSE WITH 1/2 OUNCE TWICE A DAY AFTER BREAKFAST AND BEFORE BEDTIME *SPIT OUT DO NOT SWALLOW* 07/18/20 24 Active etodolac (Lodine) 400 MG tablet Take 400 mg by mouth 2 (two) times a day as needed 07/18/20 24 Active HYDROcodone-acet aminophen ([place]) 5-325 MG tablet Take 1 tablet by mouth every 6 (six) hours if needed 07/12/20 24 Active ibuprofen 600 MG tablet TAKE 1 TABLET (600 MG) BY MOUTH EVERY 12 (TWELVE) HOURS IF NEEDED FOR MODERATE PAIN 07/17/20 24 Active atorvastatin (Lipitor) 40 MG tabletIndication s:Type 2 diabetes mellitus with peripheral neuropathy (HCC) Take 1 tablet (40 mg) by mouth in the evening 90 tablet 07/24/20 24 Active furosemide (Lasix) 20 MG tabletIndication s:Bilateral lower extremity edema Take 1 tablet (20 mg) by mouth every other day 45 tablet 1 07/24/20 24 Active gabapentin (Neurontin) 300 MG capsuleIndicatio ns:Type 2 diabetes mellitus with peripheral neuropathy (HCC) Take 1 capsule (300 mg) by mouth in the morning and 1 capsule (300 mg) in the evening and 1 capsule (300 mg) before bedtime. 270 capsule 1 07/24/20 24 Active glyBURIDE (Diabeta) 5 MG tabletIndication s:Type 2 diabetes mellitus with insulin therapy (HCC) 2 pills in the am, and 1 pill in the pm 270 tablet 1 07/24/20 24 Active pioglitazone (Actos) 30 MG tabletIndication s:Type 2 diabetes mellitus with peripheral neuropathy (HCC) Take 1 tablet (30 mg) by mouth in the morning. 90 tablet 1 07/24/20 24 Active losartan (Cozaar) 50 MG tabletIndication s:Type 2 diabetes mellitus with insulin therapy (HCC),Primary hypertension Take 1 tablet (50 mg) by mouth in the morning. 90 tablet 1 07/24/20 24 Active metFORMIN (Glucophage) 1000 MG tabletIndication s:Type 2 diabetes mellitus with peripheral neuropathy (HCC) Take 1 tablet (1,000 mg) by mouth in the morning and 1 tablet (1,000 mg) in the evening. Take with meals. 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 06/13/2024 Assessment & Plan (07/24/2024 2:21 PM EDT): Has eye appt scheduled Body mass index (BMI) 40.0-44.9, adult Weakness generalized 04/17/2024 Other chronic pain 04/17/2024 Diabetic polyneuropathy asso ciated with diabetes mellitus due to underlying condition 03/01/2024 Assessment & Plan (06/12/2024 5:43 PM EDT): Unclear if his weakness in legs is related to lumbar radiculopathy or possibly diabetic neuropathy, we will reach out to neuro regarding this and see about getting an EMG His weakness is causing falls as well Multiple falls 03/01/2024 Lumbar pain 03/01/2024 Paresthesia 03/01/2024 Overview (06/05/2024): Patient has paresthesias in the bilateral lower extremities, likely caused by his diabetes.ite possibly related to his diabetes. PLAN: - See above longterm (current) use of insulin 03/01/2024 DDD (degenerative disc disease), lumbar 03/01/20 Overview (06/05/2024): See above Polyneuropathy 03/01/2024 Overview (06/05/2024): The patient has evidence of severe polyneuropathy on EMG of the bilateral lower extremities. He is diabetic which is likely causative for his symptoms. Vibratory sensation is diminished distally on clinical exam. PLAN: - Currently on gabapentin by another provider Myopathy 03/01/2024 Overview (06/05/2024): Lumbar paraspinals are TTP bilaterally. The patient does take tizanidine at night which he reports is somewhat beneficial. PLAN: - Consider triggers in the future, this is deferred by the patient today Facet arthropathy, lumbar 03/01/2024 Environmental and seasonal allergies 02/27/2024 Type 2 diabetes mellitus with insulin therapy Assessment & Plan (07/24/2024 2:23 PM EDT): Having some lows of upper 50's in the 4-5 am shannan Cut back on dose of SIMMS at evening time from 10mg total to 5mg total, cont 10mg am And that evening dose take WITH meal at 8pm Fu in 6 weeks, check labs prior to appt and pt will stop by in 3 weeks with updated sugar reads Assessment & Plan (06/12/2024 5:44 PM EDT): Having some lows of upper 50's in the 6 am shannan He eats his biggest meal around 8-9pm, but takes insulin and SIMMS and metformin around 1am Move the dose of meds he takes at 1am and take with 8pm meal and fu in 6 weeks to see if better Assessment & Plan (04/17/2024 1:54 PM EDT): Not checking sugars, will trial free style anibal 3, meets criteria for insulin therapy as well as medicare Reports possible hypoglycemia symptoms No insulin dose changes HLD (hyperlipidemia) 12/28/2023 Chronic kidney disease (CKD), stage III (moderat e) 12/25/2023 Assessment & Plan (06/12/2024 5:39 PM EDT): Discussed causes, treatments etc Will refer to nephrology Assessment & Plan (04/17/2024 1:53 PM EDT): Check labs Lumbar back pain with radicu lopathy affecting left lower extremity 12/25/2023 Cervical pain (neck) 12/25/2023 Bilateral lower extremity edema 11/16/2023 Morbid (severe) obesity due to excess calories 1 01/03/2023 Encounter for [facility] (AWV) in Medicare patient 11/02/2023 Assessment & Plan (11/02/2023 2:36 PM EST): .I have reviewed Ht/Wt/BMI, I have reviewed recommended vaccines for patient's age, as well as all recommended screenings I have reviewed available care everywhere notes as well. I have recommended eating a balanced diet, as well as activity as chronic conditions allow It is recommended that the patient have a yearly eye exam, as well as twice a year dental exams Fu in this office for wellness on a yearly basis Primary hypertension 10/23/2023 Assessment & Plan (06/12/2024 5:39 PM EDT): At goal No med change Assessment & Plan (04/17/2024 1:52 PM EDT): At this point we are going to cut back dose on losartan to 25mg daily Check labs as well Assessment & Plan (10/23/2023 10:17 AM EST): Under good control No family hx of CAD/strokes Pt no personal heart problems Will obtain copy of EKG ECHO 2018 was normal Vitamin deficiency 10/23/2023 Vitamin B12 deficiency 10/23/2023 Varus foot deformity, acquired, left 10/23/2023 Type 2 diabetes mellitus with Charcot's joint of left foot 10/23/2023 Overview (06/05/2024): Important comorbid condition as it pertains to neuropathy. Recommended tight glucose control. Tremor of right hand 10/23/2023 Tinea cruris 10/23/2023 TIA (transient ischemic attack) 10/23/2023 Spondylosis, cervical 10/23/2023 Plantar fasciitis, bilateral 10/23/2023 Osteoarthritis of hip 10/23/2023 Obstructive sleep apnea, adult 10/23/2023 Assessment & Plan (10/23/2023 10:16 AM EST): Not compliant with use of this It has been discussed w pt at prior appts the importance of needing to wear this Careful observation in recovery period of this Type 2 diabetes mellitus with peripheral neuropa thy 10/11/2023 Assessment & Plan (04/17/2024 1:52 PM EDT): No worsening in symptoms per pt, however unsure if generalized weakness in legs is related to this Assessment & Plan (10/23/2023 10:15 AM EST): A1c is less than 7% which is trending down for him Continue current meds at current doses Freq foot check, eye exam yearly Fu in 3 months Resolved Problems Problem Noted Date Diagnosed Date Resolved Date Type 2 diabetes mellitus wit h diabetic neuropathy, unspecified 03/01/2024 07/24/2024 Apnea, sleep 02/28/2024 07/24/2024 Lower extremity edema 12/28/20232023 Encounter for initial annual wellness visit (AWV) in Medicare patient 11/02/2023 11/02/2023 Assessment & Plan (11/02/2023 2:35 PM EST): .I have reviewed Ht/Wt/BMI, I have reviewed recommended vaccines for patient's age, as well as all recommended screenings I have reviewed available care everywhere notes as well. I have recommended eating a balanced diet, as well as activity as chronic conditions allow It is recommended that the patient have a yearly eye exam, as well as twice a year dental exams Fu in this office for wellness on a yearly basis Swelling of left foot 10/23/20232023 Chest skin lesion 10/23/2023 07/24/2024 Pneumonia 10/23/2023 12/25/2023 Pre-operative clearance 10/23/202307/14 Assessment & Plan (10/25/2023 7:34 AM EST): After review of his EKG will clear for surgery Assessment & Plan (10/31/2023 6:05 PM EST): HTN, and diabetes are under control ECHO 2018 WNL No acute symptoms to suggest an underlying CAD Will review EKG , done 1 AV block, otherwise normal, labs were reviewed as well BELLA; non compliant, will need close monitoring post op period Concern over his need for help at home Cleared for surgery Obesity (BMI 30-39.9) 10/23/20232023 Encounters Date Type Department Care Team Description 05/24/2025 Refill [facility] [address] [place] [address] Idalmis Adam NP Bilateral lower extremity edema 03/27/2025 11:30 AM EDT Procedure Visit [facility] [address] [place] [address] Yesi Coleman DPM Onychomycosis (Primary Dx); Neuropathy; Type II diabetes mellitus with neurological manifestations (CMS/HCC) [E11.49]; Pain in both feet; Corns and callosities; Hammer toe of right foot 03/27/2025 Bamboo flowsheet [facility] [address] [place] [address] Yesi Coleman DPM 03/27/2025 Travel 03/10/2025 [facility] [address] [place] [address] Idalmis Adam NP Type 2 diabetes mellitus with peripheral neuropathy (HCC) 03/10/2025 Refill [facility] [address] [place] [address] Idalmis Adam NP Bilateral lower extremity edema from Last 3 Months Immunizations Immunization Administration Dates Next Due Influenza, High Dose Seasona l, Preservative Free 08/11/2024 Influenza, Injectable, MDCK, preservative free 01/02/2017 Influenza, Seasonal, Quadriv alent, Adjuvanted 08/31/2023 Influenza, injectable, MDCK, preservative free, quadrivalent 08/02/2022,10/04/2021,08/24/2019 Influenza, injectable, quadr ivalent, preservative free 08/10/2017 Novel [id number], preservative-free 10/14 Family History Medical History Relation Name Comments Mental illness Brother Brother Schiz ophrenic Mental illness Father Cancer Mother Uterine cancer Lupus Mother Mental illness Sister Relation Name Status Comments Brother Father Mother Sister Social History Tobacco Use Types Packs/Day Years Used Date Smoking Tobacco: Former Cigarettes Q uit: 1989 Smokeless Tobacco: Never Tobacco Cessation:Counseling Given: Not Answered Comments:Quit smoking >10 years ago. 20-30 cigarettes/day Alcohol Use Standard Drinks/Week [...] week 11/02/2023 How often do you attend baptism or shinto serv ices? Never 11/02/2023 Do you belong to any clubs o r organizations such as baptism groups, unions, fraternal or athletic groups, or [...] and heating? Not hard at all 11/02/2023 [facility] of Occupat ional Health - Occupational Stress [...] place to sleep or slept in a long-term (including now)? No 11/02/2023 Sex and Gender Information Value Date Recorded Sex Assigned at Not on file Legal Sex Male 8:21 PM EDT Gender Identity Not on file Sexual Orientation Not on file Last Filed Vital Signs Vital Sign Reading Time Taken Comments Blood Pressure 114/62 02/11/2025 12:16 PM EDT Pulse 84 02/11/2025 12:16 PM EDT Temperature 36.6 C (97.8 F) 09/04/2024 3:01 PM EDT Respiratory Rate 18 07/24/2024 1:13 PM EDT Oxygen Saturation 97% 02/11/2025 12:16 PM EDT Inhaled Oxygen Concentration - - Weight 117 kg (258 lb 6.4 oz) 02/03/2025 2:17 PM EDT Height 175.3 cm (5' 9 ) 02/03/2025 2:17 PM EDT Body Mass Index 38.16 02/03/2025 2:17 PM EDT Plan of Treatment Upcoming Encounters Date Type Department Care Team (Late st Contact Info) Description 06/02/2025 1:15 PM EDT Procedure Visit [facility] [address] [place] [address] Yesi Coleman DPM [address] [place] [address] 01/18/2027 1:00 PM EST Office Visit [facility] [address] [place] [address] Romeo Burt, PA [address] [facility] [place] [address] Health Maintenance Due Date Last Done Comments CT Colonography 1960 FIT-DNA 1960 FIT 1960 FOBT 1960 Sigmoidoscopy 1960 Pneumococcal Vaccine: 65+ Ye ars (1 of 2 - PCV) 1977 Diabetes: Hemoglobin A1C 12/04/2024 024, 05/27/2024, 02/28/2024, Additional history exists Diabetes: Retinopathy Screening 05/15/2025 4, 08/20/2021 Influenza Vaccine (#1) 2025 , 08/31/2023, 08/02/2022, Additional history exists Medicare Annual Wellness (AWV) 10/29/2025 1 12/30/2023, 11/02/2023, 11/02/2023 Diabetes: Urine Protein Screening 11/12/2025 11/12/2024, 02/28/2024, 01/27/2023 Colonoscopy 08/02/2027 08/02/2017 Colorectal Cancer Screening 08/02/2027 Procedures Procedure Name Priority Date/Time Associated Diagnosis Comments COLOR FUNDUS PHOTOGRAPHY - OU - BOTH EYES Routine 05/15/2024 12:43 PM EDT Type 2 diabetes mellitus with peripheral neuropathy (HCC) HEMOGLOBIN A1C Routine 07/02/2018 12:00 PM EDT from Last 3 Months or Most Recently Relevant to Health Maintenance Results * (ABNORMAL) Color Fundus Photography - OU - Both Eyes (05/15/2024 12:43 PM EDT) Anatomical Region Laterality Modality Head Fundus Photograp hy Impressions 05/15/2024 12:43 PM EDT Refer to an administrative services specialist for evaluation of active or previously treated proliferative diabetic retinopathy. Narrative 05/15/2024 12:43 PM EDT Refer to an administrative services specialist for evaluation of active or previously treated proliferative diabetic retinopathy. us Idalmis Adam NP OPHTH PHOTOGRAPHY Final Result * Hemoglobin A1c (07/02/2018 12:00 PM EDT) GENERIC LEGACY COMPONENT INTERNAL 10.6 [facility] 07/02/2018 12:0 0 PM EDT us Marj Kong DO LAB BLOOD ORDERABLES Final Result [facility] from Last 3 Months or Most Recently Relevant to Health Maintenance Insurance [employer] Care Teams Pull Worker Relationship Specialty Start Date End Date Idalmis Adam NP [address] [place] [address] PCP - Donny BENNETT 09/13/23 Umesh Aquino MD [address] [place] [address] PCP - General Family Medicine 10/16/24
--- OUTSIDE RECORDS SUMMARY | 2025-05-30 15:23 | XMS_ITS | Encounter Summary ---
Author Organization [facility] Address [address] [place] [address] Care Team Providers Care Hemodialysis Technician Name Role Phone Idalmis Adam CUSTOMS ENTRY CLERK Unavailable [phone] Umesh Aquino MD Primary Care Provider [phone] Reason for Visit * Reason Comments Med Refill Encounter Details Date Type Department Care Team ([facility] Contact Info) Description 05/24/2025 Refill [facility] [address] [place] [id number] Idalmis Adam NP [address] [place] [address] Bilateral lower extremity edema Social History Tobacco Use Types Packs/Day Years [...] week 11/02/2023 How often do you attend mosque or adventist serv ices? Never 11/02/2023 Do you belong to any clubs o r organizations such as mosque groups, unions, fraternal or athletic groups, or [...] and heating? Not hard at all 11/02/2023 [facility] [place] of Occupat ional Health - Occupational Stress [...] the money to buy more. Never true 12/21/20 23 Within the past 12 months, t [...] place to sleep or slept in a retirement (including now)? No 11/02/2023 Sex and Gender [...] PODIATRY [address] [place] [address] Yesi Coleman DPM [address] [place] [address] 01/18/2027 1:00 PM EST Office Visit [facility] [address] [place] [address] Romeo Burt, RANJIT [address] [place] [address] documented as of this encounter Visit Diagnoses Diagnosis Bilateral lower extremity edema documented in this encounter Additional Health Concerns Assessment Noted Time PHQ-9 Depression Total Score: 2 11/02/20 1:00 PM EST A fall risk assessment has been complete d for the patient 05/03/2024 8:54 AM EDT documented as of this encounter Care Teams Hemodialysis Technician Relationship Specialty Start Date End Date Idalmis Adam NP [address] [place] [address] PCP - Donny BENNETT 09/13/23 Umesh Aquino MD [address] [place] [address] PCP - General Family Medicine 10/16/24 documented as of this encounter
--- OUTSIDE RECORDS SUMMARY | 2025-05-30 15:23 | XMS_ITS | Encounter Summary ---
Author Organization [facility] Address [address] [place] [address] Care Team Providers Care Green Coffee Blender Name Role Phone Idalmis Adam TYPE INSPECTOR Unavailable [phone] Baljinder Pineda MD Primary Care Provider [phone] Idalmis Adam TYPE INSPECTOR Unavailable [phone] Baljinder Pineda MD Primary Care Provider [phone] Kai Dumont PURCHASE ANALYST Unavailable Unavailable Tosha Mesa PURCHASE ANALYST Unavailable Unallocated, Noms Provider Primary Care Provi senia Umesh Aquino MD Primary Care Provider [phone] Encounter Details Date Type Department Care Team (Late st Contact Info) Description 10/22/2023 Abstract [facility] [address] [place] [phone] Idalmis Adam, TYPE INSPECTOR [address] [place] [address] Social History Tobacco Use Types Packs/Day Years [...] [address] [place] [address] Yesi Coleman DPM [address] [place] [address] 01/18/2027 1:00 PM EST Office Visit [facility] [address] [place] [address] Romeo Burt, PA [address] [place] [address] documented as of this encounter Visit Diagnoses Not on filedocumented in this encounter Care Teams Green Coffee Blender Relationship Specialty Start Date End Date Baljinder Pineda MD PCP - General Family Medicine 10/31/23 12/19/23 Idalmis Adam NP [address] [place] [address] PCP - Donny BENNETT 09/13/23 Baljinder Pineda MD [address] [place] [address] PCP - General Family Medicine 12/20/23 09/03/24 Unallocated, Loco Urban MD [address] [place] [address] PCP - General Family Medicine 09/04/24 10/15/24 Umesh Aquino MD [address] [place] [address] PCP - General Family Medicine 10/16/24 Idalmis Adam NP Referring Physician Family Medicine 09/01/23 10/15/24 Kai Dumont LPN Licensed Practical Nurse Family Medicine 04/25/24 Tosha Mesa LPN [address] [place] [address] Licensed Practical Nurse Family Medicine 07/26/2408/14 documented as of this encounter
--- NOTE | 2025-05-30 16:16 | ED.FALL1 ---
HPI HPI - Fall General Chief Complaint: Fall Stated Complaint: FALL Time Seen by Provider: 05/30/25 15:21 Source: patient Mode of arrival: ambulance Limitations: no limitations History of Present Illness HPI Narrative: 65-year-old male presents here with chief complaint of left upper extremity pain. He accidentally tripped while at home. He is recovering from bilateral eyelid surgery. When he fell he landed with his arm underneath of him. He is unable to use his upper extremity now due to pain complaints of left shoulder pain and tenderness. Denies any loss of conscious. He is not currently on any blood thinners. He has no other injuries from this fall. Related Data Home Medications ?Medication ?Instructions ?Recorded ?Confirmed atorvastatin 40 mg tablet 40 mg PO BEDTIME 05/30/25 05/30/25 fexofenadine 180 mg tablet 180 mg PO DAILY 05/30/25 05/30/25 furosemide 20 mg tablet 20 mg PO .Q48HR 05/30/25 05/30/25 gabapentin 300 mg capsule 300 mg PO TID 05/30/25 05/30/25 glyburide 5 mg tablet 5 mg PO BEDTIME 05/30/25 05/30/25 lamotrigine 100 mg tablet 100 mg PO BEDTIME 05/30/25 05/30/25 losartan 25 mg tablet 25 mg PO DAILY 05/30/25 05/30/25 lurasidone 120 mg tablet 120 mg PO DAILY 05/30/25 05/30/25 metformin 1,000 mg tablet 1,000 mg PO BID 05/30/25 05/30/25 pioglitazone 30 mg tablet 30 mg PO DAILY 05/30/25 05/30/25 semaglutide 1 mg/dose (4 mg/3 mL) 1 mg subcut .WEEKLY 05/30/25 05/30/25 subcutaneous pen injector (Ozempic) sertraline 100 mg tablet 100 mg PO BEDTIME 05/30/25 05/30/25 tizanidine 4 mg tablet 4 mg PO BEDTIME 05/30/25 05/30/25 Allergies Allergy/AdvReac Type Severity Reaction Status Date / Time Penicillins AdvReac Mild Unknown Verified 05/30/25 15:17 Tetanus Vaccines and Toxoid AdvReac Mild Unknown Verified 05/30/25 15:17 Opioid HPI Opioid Management Most Recent Pain and Opioid Data: Last Pain Scale 8 Today, 15:37 Review of Systems ROS Status of ROS 10 or more systems reviewed and unremarkable except as noted in history and below PFSH PFSH Social History Little interest or pleasure in doing things: not at all Feeling down, depressed, or hopeless: not at all Exam Narrative Exam Narrative: All Systems are negative except as noted/marked.All systems reviewed and otherwise negative Nurses note and vital signs reviewed and patient is not hypoxic. General: The patient appears well and in no apparent distress. Patient is resting comfortably on cart. Skin: Warm, dry, no pallor noted. There is no rash noted. Head: Normocephalic, atraumatic Eye: Bilateral upper and lower eyelid swelling status post surgery sutures intact , normal conjunctiva, no drainage, EOMI. PERRL Musculoskeletal: Patient presents with left shoulder pain status post fall, limited range of motion and inability to abduct or adduct due to pain moving his arm in 90 degree angle extremity is neurovascularly intact. The patient has no evidence of calf tenderness, no pitting edema, symmetrical pulses noted bilaterally Neurological: A&O x4, normal speech Psychiatric: Cooperative Constitutional Vital Signs, click to edit/add: Last Vital Signs Temp 98.0 F 05/30/25 15:22 Pulse 76 05/30/25 15:22 Resp 18 05/30/25 15:22 BP 149/78 H 05/30/25 15:22 Pulse Ox 95 05/30/25 15:22 O2 Del Method Room Air 05/30/25 15:22 Course Vital Signs Vital signs: Vital Signs Temperature 98.0 F 05/30/25 15:22 Pulse Rate 76 05/30/25 15:22 Respiratory Rate 18 05/30/25 15:22 Blood Pressure 149/78 H 05/30/25 15:22 Pulse Oximetry 95 05/30/25 15:22 Oxygen Delivery Method Room Air 05/30/25 15:22 Temperature 98.0 F 05/30/25 15:22 Pulse Rate 76 05/30/25 15:22 Respiratory Rate 18 05/30/25 15:22 Blood Pressure 149/78 H 05/30/25 15:22 Pulse Oximetry 95 05/30/25 15:22 Oxygen Delivery Method Room Air 05/30/25 15:22 MDM - Fall Differential Diagnosis Differential diagnosis: Likely dislocation of shoulder region and other (fracture of wrist, shoulder) Medical Records Attestation: I reviewed the patient's medical records. Medical records narrative: 65-year-old male presents here with chief complaint of left upper extremity pain. He accidentally tripped while at home. He is recovering from bilateral eyelid surgery. When he fell he landed with his arm underneath of him. He is unable to use his upper extremity now due to pain complaints of left shoulder pain and tenderness. Denies any loss of conscious. He is not currently on any blood thinners. He has no other injuries from this fall. Presents emergency room chief complaint with fall. Patient was unable to move his arm or use it due to pain. Soft tissue swelling noted. Patient had difficulty with abduction adduction or elevation. He was limited due to pain. 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 medicated by By squad prior to arrival, will also give him a dose of Kirklin here. Patient will be following up with orthopedics.Sling applied by nursing staff extremity neurovascular intact before and after application Imaging Data shoulder: Radiologist's impression: ITS Impressions Shoulder X-Ray 05/30/25 15:21 IMPRESSION: There is a minimally displaced transverse aortic fracture of neck of humerus. Degenerative changes are noted in the left shoulder as above. Bony structures are separate from the rotator cuff insertion suggesting an avulsion type injury. Impression dictated by: Garrison Blanco M.D. 05/30/2025 4:34 PM Dictation Location: [place] [address] Electronically authenticated by: [id number] Y Date: 05/30/2025 16:34 Discharge Plan Discharge Chief Complaint: Fall Clinical Impression: Fracture closed, humerus Patient Disposition: Home, Self-Care Time of Disposition Decision: 16:40 Prescriptions / Home Meds: No Action atorvastatin 40 mg tablet 40 mg PO BEDTIME fexofenadine 180 mg tablet 180 mg PO DAILY furosemide 20 mg tablet 20 mg PO .Q48HR gabapentin 300 mg capsule 300 mg PO TID glyburide 5 mg tablet 5 mg PO BEDTIME lamotrigine 100 mg tablet 100 mg PO BEDTIME losartan 25 mg tablet 25 mg PO DAILY lurasidone 120 mg tablet 120 mg PO DAILY metformin 1,000 mg tablet 1,000 mg PO BID pioglitazone 30 mg tablet 30 mg PO DAILY Ozempic 1 mg/dose (4 mg/3 mL) pen injector 1 mg SUBCUT .WEEKLY sertraline 100 mg tablet 100 mg PO BEDTIME tizanidine 4 mg tablet 4 mg PO BEDTIME Print Language: Mexican Instructions: Arm Fracture in Adults (ED), How to Use a Sling (ED) Referrals: Physician,Non-Staff, [Primary Care Provider] - 1 week Chaim Kay MD [Physician, Orthopedics] - 1 week
== END 2025-05-30 17:22 | disposition home or self-care (01) ==
PROVIDERS: Emergency Provider Emergency Medicine
DX: S42.212A Unspecified displaced fracture of surgical neck of left humerus, initial encounter for closed fracture (principal); W01.0XXA Fall on same level from slipping, tripping and stumbling without subsequent striking against object, initial encounter; Z98.890 Other specified postprocedural states
CPT/HCPCS: 73030; 99283

== ENCOUNTER 2025-06-19 14:37 | Outpatient (OUT) | payer MEDICARE, SELFPAY ==
--- OUTSIDE RECORDS SUMMARY | 2025-06-05 23:59 | XMS_ITS | Continuity of Care Document ---
Author Organization [facility] Address [address] [place] [address] Care Team Providers Care Viner Operator Name Role Phone Umesh Aquino Primary Care Physician Encounter FT_OLIVE [id number] Date(s): 06/05/25 - 06/05/[address] [address]- Encounter Diagnosis Type 2 diabetes mellitus with chronic kidney disease(Discharge Diagnosis) - 06/03/25 Chronic kidney disease (CKD), stage 2(Discharge Diagnosis) - 06/03/25 Type 2 diabetes mellitus with diabetic retinopathy(Discharge Diagnosis) - 06/03/25 Hypertensive chronic kidney disease(Discharge Diagnosis) - 06/03/25 Discharge Disposition: Home (Routine DC) Attending Physician: QUIRINO HADDAD CNP Encounter Type: Clinic Allergies, Adverse Reactions, Alerts Substance Criticality Severity Reaction Reaction Severity Status penicillin Rash Active tetanus toxoid Rash Activ e Lansing needles Rash Active bee pollen Swelling Active Assessment and Plan Future Appointments Appointment Date:10/29/2025 09:30:00 AM Scheduled Provider: Location:[facility] Appointment Type:FM Medicare Wellness Subsequent Immunizations Given and Recorded Vaccine Date Status Refusal Reason influenza virus vaccine, inactivated 08/11/24 Garrett rded influenza virus vaccine, inactivated 08/31/23 Garrett rded influenza virus vaccine, inactivated 08/02/22 Grarett rded influenza virus vaccine, inactivated 10/04/21 Garrett rded influenza virus vaccine, inactivated 08/24/19 Garrett rded influenza virus vaccine, inactivated 08/10/17 Garrett rded influenza virus vaccine, inactivated 01/02/17 Garrett rded SARSCoV2 mRNA(eyyvuuxds-bcyv-twneln) vac 02/18/22 Recorded SARS-CoV-2 (COVID-19) mRNA BNT-162b2 vax 1 05/02/21 Recorded SARS-CoV-2 (COVID-19) mRNA BNT-162b2 vax 2 04/11/21 Recorded 1Result Comment: 2024-10-24: TPV60 2Result Comment: 2024-10-24: TPV60 Medications atorvastatin 40 mg Tab See Instructions, TAKE 1 TABLET BY MOUTH IN THE EVENING, # 90 tab(s), Refills(s) 0, Pharmacy: [facility] STORE [id number], 174.5, cm, 12/05/24 8:58:00 EST, Height/Length Dosing, 121.4, kg, 12/05/24 8:58:00 EST, Weight Dosing Start Date: 04/01/25 Status: Ordered Quantity: 90.0 Unit: tab(s) Repeat number: 1 chlorhexidine 0.12% mucous membrane liquid RINSE WITH 1/2 OUNCE TWICE A DAY AFTER BREAKFAST AND BEFORE BEDTIME *SPIT OUT DO NOT SWALLOW* Start Date: 09/26/24 Status: Ordered Repeat number: 1 etodolac 400 mg Tab TAKE 1 TABLET BY MOUTH TWICE A DAY NEEDED FOR PAIN Start Date: 09/26/24 Status: Ordered Repeat number: 1 fexofenadine 180 mg Tab See Instructions, TAKE 1 TABLET BY MOUTH EVERY DAY, # 90 tab(s), Refills(s) 0, Pharmacy: [facility]/pharmacy #[id number], 174.5, cm, 12/05/24 8:58:00 EST, Height/Length Dosing, 121.4, kg, 12/05/24 8:58:00 EST, Weight Dosing Start Date: 05/26/25 Status: Ordered Quantity: 90.0 Unit: tab(s) Repeat number: 1 FREESTYLE JOLIE 3 PLUS SENSOR FREESTYLE JOLIE 3 PLUS SENSOR, USE 1 SENSOR BY OTHER ROUTE DAILY FOR 30 DAYS CHANGE SENSOR EVERY 15DAYS Start Date: 09/26/24 Status: Ordered Repeat number: 1 furosemide 20 mg Tab 20 mg = 1 tab(s), Oral, Daily, # 90 tab(s), Refills(s) 0 Start Date: 09/26/24 Status: Ordered Quantity: 90.0 Unit: tab(s) Repeat number: 1 gabapentin 300 mg Cap 300 mg = 1 cap(s), Oral, TID, TAKE 1 CAPSULE BY MOUTH IN THE MORNING, EVENING, AND BEFORE BEDTIME, # 270 cap(s), Refills(s) 0, Pharmacy: [facility]/pharmacy #[id number], 174.5, cm, 12/05/24 8:58:00 EST, Height/Length Dosing, 121.4, kg, 12/05/24 8:58:00 EST, Weight Dosing Start Date: 03/11/25 Status: Ordered Quantity: 270.0 Unit: cap(s) Repeat number: 1 GlyBURIDE (Eqv-Micronase) 5 mg oral tablet See Instructions, take 2 tablets in the morning and 1 tablet in the evening, # 270 tab(s), Refills(s) 3, [id number], 174.5, cm, 12/05/24 8:58:00 EST, Height/Length Dosing, 121.4, kg, 12/05/24 8:58:00 EST, Weight Dosing Start Date: 03/12/25 Status: Ordered Quantity: 270.0 Unit: tab(s) Repeat number: 4 Insulin Lispro Protamine-Insulin Lispro Mix75/25 KwikPen subcutaneous suspension See Instructions, 20units subq once a day, # 15 mL, Refills(s) 0, Pharmacy: [facility]/pharmacy #[id number], 174.5, cm, 12/05/24 8:58:00 EST, Height/Length Dosing, 121.4, kg, 12/05/24 8:58:00 EST, Weight Dosing Start Date: 12/05/24 Status: Ordered Quantity: 15.0 Unit: mL Repeat number: 1 lamotrigine 100 mg Tab TAKE 1 TABLET BY MOUTH EVERYDAY AT BEDTIME Start Date: 09/26/24 Status: Ordered Repeat number: 1 losartan 50 mg Tab 100 mg = 2 tab(s), Oral, Daily, Refills(s) 0 Start Date: 09/26/24 Status: Ordered Repeat number: 1 lurasidone 120 mg oral tablet 120 mg = 1 tab(s), Oral, Daily, Refills(s) 0 Start Date: 09/26/24 Status: Ordered Repeat number: 1 metformin 1000 mg Tab 1,000 mg = 1 tab(s), Oral, BID, # 180 tab(s), Refills(s) 3, [id number], 174.5, cm, 12/05/24 8:58:00 EST, Height/Length Dosing, 121.4, kg, 12/05/24 8:58:00 EST, Weight Dosing Start Date: 03/11/25 Status: Ordered Quantity: 180.0 Unit: tab(s) Repeat number: 4 Ozempic (1 mg dose) 4 mg/3 mL subcutaneous solution See Instructions, INJECT 1 MG SUBCUTANEOUSLY WEEKLY, # 9 Unspecified/Unknown, Refills(s) 1, Pharmacy: [facility] [id number], 174.5, cm, 12/05/24 8:58:00 EST, Height/Length Dosing, 121.4, kg, 12/05/24 8:58:00 EST, Weight Dosing Start Date: 04/14/25 Status: Ordered Quantity: 9.0 Unit: Unspecified/Unknown Repeat number: 1 pen needels BD UF pen needels BD UF, See Instructions, 60 pen needle(s), 3, BD UF III mini pen needles [id number] use bid to inject insulin, [id number] Supply, 174.5, cm, 09/26/24 13:54:00 EST, Height/Length Dosing, 123.8, kg, 09/26/24 13:54:00 EST, Weight Dosing Start Date: 10/04/24 Status: Ordered Quantity: 60.0 Unit: pen needle(s) Repeat number: 4 pimecrolimus Top Crm 30 gram Refill(s) 0 Start Date: 09/26/24 Status: Ordered Repeat number: 1 pioglitazone 30 mg Tab 30 mg = 1 tab(s), Oral, Daily, # 90 tab(s), Refills(s) 3, [id number], 174.5, cm, 12/05/24 8:58:00 EST, Height/Length Dosing, 121.4, kg, 12/05/24 8:58:00 EST, Weight Dosing Start Date: 03/11/25 Status: Ordered Quantity: 90.0 Unit: tab(s) Repeat number: 4 sertraline 100 mg Tab 100 mg = 1 tab(s), Oral, Daily, # 90 tab(s), Refills(s) 0 Start Date: 09/26/24 Status: Ordered Quantity: 90.0 Unit: tab(s) Repeat number: 1 tiZANidine 4 mg Tab See Instructions, TAKE 1 TABLET BY MOUTH DAILY AT BEDTIME NEEDED FOR MUSCLE SPASMS, # 90 tab(s),Refills(s) 1, Pharmacy: [facility] STORE [id number], 174.5, cm, 12/05/24 8:58:00 EST, Height/Length Dosing, 121.4, kg, 12/05/24 8:58:00 EST, Weight Dosing Start Date: 12/31/24 Status: Ordered Quantity: 90.0 Unit: tab(s) Repeat number: 1 Problem List Condition Confirmation Course Effective Dates Status H ealth Status Informant Bipolar disorder Confirmed Active Charcot joint of foot Confirmed Active Hypertensive chronic kidney disease 1 Confirmed Active Type 2 diabetes mellitus with chronic kidney disease 2 Confirmed Active Chronic kidney disease (CKD), stage 2 3 Confirmed Active Type 2 diabetes mellitus with diabetic retinopathy 4 Confirmed Active HLD (hyperlipidemia) Confirmed Active HTN (hypertension) Confirmed Active skilled nursing current use of insulin 5 Confirmed Active Neuropathy Confirmed Active Nonsmoker Confirmed Active Type 2 diabetes mellitus with hyperlipidemia 6 Confirmed Active 1Linked per outpatient CDI policy. 2Linked per outpatient CDI policy 3Added per outpatient CDI policy. 11/12/2024 eGFR 44 04/15/2025 [facility] [place]- CKD stage 3b, dm with neuropathy then 04/15/2025 has ckd stage 2, i129, dm/ckd 4Added per outpatient CDI policy based on: 01/17/2025 outside diabetic eye exam- proliferative diabetic retinopathy 5Current Medication List includes insulin lispro 75/25. added per OP CDI policy. 6linked DM with HLD per OP CDI policy. Procedures Procedure Date Related Diagnosis Body Site Status Arthroscopy of hip 11/08/23 Comple rubia Colonoscopy 2016 Completed Adenoidectomy Completed Appendectomy; Completed Arthroscopy of knee Compl eted Cholecystectomy Completed H/O splenectomy Completed Tonsillectomy Completed Social History Social History Type Response Smoking Status Former smoker, quit more than 30 days ago 1 entered on: 12/05/24 Sex Male Sex Representation Male (finding) 1denies use. Patient Care team information Care Team Personnel Name: VIVIANE FINE, LUDA Member Role: Neurologist Address: [address] [place] [id number] Telecom: Name: Umesh Aquino MD Member Role: Primary Care Physician Address: [address] [place], [place] [address] Telecom: Care Team Related Persons Name: Gold Malcolm Insurance Providers Guarantor name: SHALINI Daigle [place] [facility] Information #: 1 Payer: NA Payer Identifier: [id number] Member Number: [id number] Group Number: [id number] Subscriber Identifier: [id number] Relationship to Subscriber: Self Coverage Type: MEDICARE Coverage Verification Date: 25 Telecom: NA Address: NA
--- OUTSIDE RECORDS SUMMARY | 2025-06-19 14:41 | XMS_ITS | Encounter Summary ---
Author Organization [facility] Address [address] [place] [address] Care Team Providers Care Conservation Technician Name Role Phone Idalmis Adam CHARGING PLUG PLACER Unavailable [phone] Baljinder Pineda MD Primary Care Provider [phone] Idalmis Adam NP Unavailable [phone] Baljinder Pineda MD Primary Care Provider [phone] Kai Dumont SYSTEMS ANALYSIS MANAGER Unavailable Unavailable Tosha Mesa SYSTEMS ANALYSIS MANAGER Unavailable Unallocated, Noms Provider Primary Care Provi senia Umesh Aquino MD Primary Care Provider [phone] Encounter Details Date Type Department Care Team (Late st Contact Info) Description 11/14/2023 Orders Only [facility] [address] [place] [address] Idalmis Adam NP [address] [place] [address] Social History Tobacco Use Types [...] week 11/02/2023 How often do you attend shinto or yazdanism serv ices? Never 11/02/2023 Do you belong to any clubs o r organizations such as shinto groups, unions, fraternal or athletic groups, or [...] and heating? Not hard at all 11/02/2023 [facility] [place] of Occupat ional Health - Occupational Stress [...] Care Team (Late st Contact Info) Description 06/30/2025 2:00 PM EDT Office Visit [facility] [address] [place] [phone] Kai Lawrence DPM [address] [place] [address] 09/03/2025 1:15 PM EDT Procedure Visit [facility] [address] [place] [phone] Yesi Coleman DPM [address] [place] [address] 01/18/2027 1:00 PM EST Office Visit [facility] [address] [place] [address] Romeo Burt, RANJIT [address] [place] [address] documented as of this encounter Procedures Procedure Name Priority Date/Time Associated Diagnosis Comments ELECTROCARDIOGRAM REPORT Routine 023 1:11 PM EST documented in this encounter Results * Electrocardiogram Report (10/13/2023 1:11 PM EST) us Idalmis Adam CHARGING PLUG PLACER IN CLINIC/BEDSIDE ORDERABLES Fi nal Result documented in this encounter Visit Diagnoses Not on filedocumented in this encounter Additional Health Concerns Assessment Noted Time PHQ-9 Depression Total Score: 2 11/02/20 23 1:00 PM EST documented as of this encounter Care Teams Conservation Technician Relationship Specialty Start Date End Date Baljinder Pineda MD PCP - General Family Medicine 10/31/23 12/19/23 Idalmis Adam NP [address] [place] [address] PCP - Donny BENNETT 09/13/23 Baljinder Pineda MD [address] [place] [address] PCP - General Family Medicine 12/20/23 09/03/24 Unallocated, Loco Urban MD [address] [place] [address] PCP - General Family Medicine 09/04/24 10/15/24 Umesh Aquino MD [address] [place] [address] PCP - General Family Medicine 10/16/24 Idalmis Adam NP Referring Physician Family Medicine 09/01/23 10/15/24 Kai Dumont LPN Licensed Practical Nurse Family Medicine 04/25/24 Tosha Mesa LPN [address] [place] [address] Licensed Practical Nurse Family Medicine 07/26/2408/14 documented as of this encounter
--- OUTSIDE RECORDS SUMMARY | 2025-06-19 14:41 | XMS_ITS | Encounter Summary ---
Author Organization [facility] Address [address] [place] [address] Care Team Providers Care Datastage Consultant Name Role Phone Idalmis Adam LETTER STAMPING MACHINE OPERATOR Unavailable [phone] Baljinder Pineda MD Primary Care Provider [phone] Idalmis Adam LETTER STAMPING MACHINE OPERATOR Unavailable [phone] Baljinder Pineda MD Primary Care Provider [phone] Kai Dumont CASHIER CHECKER Unavailable Unavailable Tosha Mesa CASHIER CHECKER Unavailable Unallocated, [facility] Provider Primary Care Provi senia Umesh Aquino MD Primary Care Provider [phone] Encounter Details Date Type Department Care Team (Late st Contact Info) Description 10/22/2023 Abstract [facility] [address] [place] [phone] Idalmis Adam, LETTER STAMPING MACHINE OPERATOR [address] [place] [address] Social History Tobacco Use Types Packs/Day Years [...] 06/30/2025 2:00 PM EDT Office Visit [facility] [address] [facility] [place] [address] Kai Lawrence, DPM [address] [place] [address] 09/03/2025 1:15 PM EDT Procedure Visit [facility] [address] [place] [address] Yesi Coleman DPM [address] [place] [address] 01/18/2027 1:00 PM EST Office Visit [facility] [address] [place] [phone] Romeo Burt, PA [address] [facility] [place] [address] documented as of this encounter Visit Diagnoses Not on filedocumented in this encounter Care Teams Datastage Consultant Relationship Specialty Start Date End Date Baljinder Pineda MD PCP - General Family Medicine 10/31/23 12/19/23 Idalmis Adam NP [address] [place] [address] PCP - Donny BENNETT 09/13/23 Baljinder Pineda MD [address] [place] [address] PCP - General Family Medicine 12/20/23 09/03/24 Unallocated, Loco Urban MD [address] [place] [address] PCP - General Family Medicine 09/04/24 10/15/24 Umesh Aquino MD [address] [place] [address] PCP - General Family Medicine 10/16/24 Idalmis Adam NP Referring Physician Family Medicine 09/01/23 10/15/24 Kai Dumont LPN Licensed Practical Nurse Family Medicine 04/25/24 Tosha Mesa LPN [address] [place] [address] Licensed Practical Nurse Family Medicine 07/26/2408/14 documented as of this encounter
--- OUTSIDE RECORDS SUMMARY | 2025-06-19 14:41 | XMS_ITS | Encounter Summary ---
Author Organization [facility] Address [address] [place] [address] Care Team Providers Care Senior Web Designer Name Role Phone Idalmis Adam EDUCATIONAL SPEECH LANGUAGE CLINICIAN Unavailable [phone] Idalmis Adam EDUCATIONAL SPEECH LANGUAGE CLINICIAN Unavailable [phone] Baljinder Pineda MD Primary Care Provider [phone] Kai Dumont PSYCHOLOGY PROFESSOR Unavailable Unavailable Tosha Mesa PSYCHOLOGY PROFESSOR Unavailable Unallocated, Noms Provider Primary Care Provi senia Umesh Aquino MD Primary Care Provider [phone] Reason for Visit * Reason Comments Med Refill Encounter Details Date Type Department Care Team (Late st Contact Info) Description 04/17/2024 Refill [facility] [address] [place] [address] Idalmis Adam, EDUCATIONAL SPEECH LANGUAGE CLINICIAN [address] [place] [address] Social History Tobacco Use Types Packs/Day Years [...] week 11/02/2023 How often do you attend orthodox or holiness serv ices? Never 11/02/2023 Do you belong to any clubs o r organizations such as orthodox groups, unions, fraternal or athletic groups, or [...] and heating? Not hard at all 11/02/2023 [facility] [place] of Occupat ional Health - Occupational Stress [...] place to sleep or slept in a skilled nursing (including now)? No 11/02/2023 Sex and Gender Information Value Date Recorded Sex Assigned at Not on file Legal Sex Male 8:21 PM EDT Gender Identity Not on file Sexual Orientation Not on file documented as of this encounter Plan of Treatment Upcoming Encounters Date Type Department Care Team (Late st Contact Info) Description 06/30/2025 2:00 PM EDT Office Visit [facility] [address] [place] [phone] Kai Lawrence DPM [address] [place] [address] 09/03/2025 1:15 PM EDT Procedure Visit [facility] [address] [place] [address] Yesi Coleman DPM [address] [place] [address] 01/18/2027 1:00 PM EST Office Visit [facility] [address] [place] [address] Romeo Burt, RANJIT [address] [place] [address] documented as of this encounter Visit Diagnoses Not on filedocumented in this encounter Additional Health Concerns Assessment Noted Time PHQ-9 Depression Total Score: 2 11/02/20 23 1:00 PM EST documented as of this encounter Care Teams Senior Web Designer Relationship Specialty Start Date End Date Idalmis Adam, DEVON [address] [place] [address] PCP - Donny BENNETT 09/13/23 Baljinder Pineda MD [address] [place] [address] PCP - General Family Medicine 12/20/23 09/03/24 Unallocated, Loco Urban MD [address] [place] [address] PCP - General Family Medicine 09/04/24 10/15/24 Umesh Aquino MD [address] [place] [address] PCP - General Family Medicine 10/16/24 Idalmis Adam NP Referring Physician Family Medicine 09/01/23 10/15/24 Kai Dumotn LPN Licensed Practical Nurse Family Medicine 04/25/24 Tosha Mesa LPN [address] [place] [address] Licensed Practical Nurse Family Medicine 07/26/2408/14 documented as of this encounter
--- OUTSIDE RECORDS SUMMARY | 2025-06-19 14:41 | XMS_ITS | Encounter Summary ---
Author Organization [facility] Address [address] [place] [address] Care Team Providers Care Registration Rep Name Role Phone Idalmis Adam CONTROL SYSTEMS ENGINEER Unavailable [phone] Idalmis Adam CONTROL SYSTEMS ENGINEER Unavailable [phone] Baljinder Pineda MD Primary Care Provider [phone] Kai Dumont PRODUCTION CONTROL TECHNOLOGIST Unavailable Unavailable Tosha Mesa PRODUCTION CONTROL TECHNOLOGIST Unavailable Unallocated, [facility] Provider Primary Care Provi senia Umesh Aquino MD Primary Care Provider [phone] Reason for Visit * Reason Comments Med Refill Encounter Details Date Type Department Care Team (Late st Contact Info) Description 07/20/2024 Refill [facility] [address] [place] [address] Idalmis Adam, CONTROL SYSTEMS ENGINEER [address] [place] [address] Type 2 diabetes mellitus with insulin therapy [...] week 11/02/2023 How often do you attend scientologist or nondenominational serv ices? Never 11/02/2023 Do you belong to any clubs o r organizations such as scientologist groups, unions, fraternal or athletic groups, or [...] and heating? Not hard at all 11/02/2023 [facility] [place] of Occupat ional Health - Occupational Stress [...] place to sleep or slept in a alf (including now)? No 11/02/2023 Sex and Gender Information Value Date Recorded Sex Assigned at Not on file Legal Sex Male 8:21 PM EDT Gender Identity Not on file Sexual Orientation Not on file documented as of this encounter Plan of Treatment Upcoming Encounters Date Type Department Care Team (Late st Contact Info) Description 06/30/2025 2:00 PM EDT Office Visit [facility] [address] [place] [address] Kai Lawrence [address] [place] [id number] 09/03/2025 1:15 PM EDT Procedure Visit [facility] [address] [place] [address] Ysei Coleman DPM [address] [place] [address] 01/18/2027 1:00 PM EST Office Visit [facility] [address] [place] [address] Romeo Burt, PA [address] [place] [address] documented as of this encounter Visit Diagnoses Diagnosis Type 2 diabetes mellitus with insulin therapy (HCC) documented in this encounter Additional Health Concerns Assessment Noted Time PHQ-9 Depression Total Score: 2 11/02/20 1:00 PM EST A fall risk assessment has been complete d for the patient 05/03/2024 8:54 AM EDT documented as of this encounter Care Teams Registration Rep Relationship Specialty Start Date End Date Idalmis Adam NP [address] [place] [address] PCP - Donny BENNETT 09/13/23 Baljinder Pineda MD [address] [place] [address] PCP - General Family Medicine 12/20/23 09/03/24 Unallocated, Loco Urban MD [address] [place] [address] PCP - General Family Medicine 09/04/24 10/15/24 Umesh Aquino MD [address] [place], [place] [id number] PCP - General Family Medicine 10/16/24 Idalmis Adam NP Referring Physician Family Medicine 09/01/23 10/15/24 Kai Dumont LPN Licensed Practical Nurse Family Medicine 04/25/24 Tosha Mesa LPN [address] [facility] [address] [place] [address] Licensed Practical Nurse Family Medicine 07/26/2408/14 documented as of this encounter
--- OUTSIDE RECORDS SUMMARY | 2025-06-19 14:41 | XMS_ITS | Encounter Summary ---
Author Organization [facility] Address [address] [place] [address] Care Team Providers Care Ski Tow Operator Name Role Phone Idalmis Adam MEASUREMENT ANALYST Unavailable [phone] Idalmis Adam MEASUREMENT ANALYST Unavailable [phone] Baljinder Pineda MD Primary Care Provider [phone] Kai Dumont HEAD STILL OPERATOR Unavailable Unavailable Tosha Mesa HEAD STILL OPERATOR Unavailable Unallocated, Noms Provider Primary Care Provi senia Umesh Aquino MD Primary Care Provider [phone] Reason for Visit * Reason Comments Med Refill Encounter Details Date Type Department Care Team (Late st Contact Info) Description 04/14/2024 Refill [facility] [address] [place] [address] Idalmis Adam, MEASUREMENT ANALYST [address] [place] [address] Social History Tobacco Use Types Packs/Day Years [...] week 11/02/2023 How often do you attend yazidism or mormon serv ices? Never 11/02/2023 Do you belong to any clubs o r organizations such as yazidism groups, unions, fraternal or athletic groups, or [...] and heating? Not hard at all 11/02/2023 [facility] [place] of Occupat ional Health - Occupational Stress [...] EDT Office Visit [facility] [address] [place] [address] Kai Lawrence DPM [address] [place] [address] 09/03/2025 1:15 PM EDT Procedure Visit [facility] [address] [place] [address] Yesi Coleman DPM [address] [place] [address] 01/18/2027 1:00 PM EST Office Visit [facility] [address] [place] [address] Romeo Burt, RANJIT [address] [facility] [address] documented as of this encounter Visit Diagnoses Not on filedocumented in this encounter Additional Health Concerns Assessment Noted Time PHQ-9 Depression Total Score: 2 11/02/20 23 1:00 PM EST documented as of this encounter Care Teams Ski Tow Operator Relationship Specialty Start Date End Date Idalmis Adam, DEVON [address] [address] PCP - Donny BENNETT 09/13/23 Baljinder Pineda MD [address] [place] [address] PCP - General Family Medicine 12/20/23 09/03/24 Unallocated, Loco Urban MD [address] [place] [address] PCP - General Family Medicine 09/04/24 10/15/24 Umesh Aquino MD [address] [place] [address] PCP - General Family Medicine 10/16/24 Idalmis Adam NP Referring Physician Family Medicine 09/01/23 10/15/24 Kai Dumont LPN Licensed Practical Nurse Family Medicine 04/25/24 Tosha Mesa LPN [address] [place] [address] Licensed Practical Nurse Family Medicine 07/26/2408/14 documented as of this encounter
--- NOTE | 2025-06-19 14:44 | XR_ITS ---
[address] [address] Patient Name: SHALINI BARTLETT MRN: [id number] date: 1960 Sex: M Assigned Patient Location: RAD Current Patient Location: [facility] Accession/Order Number: [id number] Exam Date: 06/19/2025 15:14 Report Date: 06/19/2025 15:14 At the request of: QUIRINO HADDAD NP Procedure: XR abdomen 1V KUB: CLINICAL INFORMATION: Drug induced constipation COMPARISON: None FINDINGS: Moderate stool burden. No bowel obstruction or free air. Osseous structures demonstrate degenerative change. XR/XR abdomen 1V IMPRESSION: EVIDENCE OF CONSTIPATION. NO ACUTE PROCESS. Impression dictated by: Dimitri Richmond Jr., DTeenaOTeena 06/19/2025 3:14 PM Dictation Location: [place] [address] Electronically authenticated by: [id number] Y Date: 06/19/2025 15:14
== END 2025-06-19 14:38 | disposition home or self-care (01) ==
PROVIDERS: Visit Provider Nurse Practitioner Family
DX: K59.03 Drug induced constipation (principal)
CPT/HCPCS: 74018

== ENCOUNTER 2025-07-10 17:35 | Outpatient (RCR) | payer MEDICARE, SELFPAY | END 2025-09-11 15:01 | disposition home or self-care (01) | LOC: PT 17:35 | PROVIDERS: Visit Provider Orthopaedic Surgery Orthopaedic Trauma | DX: S42.202D Unspecified fracture of upper end of left humerus, subsequent encounter for fracture with routine healing (principal); M25.512 Pain in left shoulder | CPT/HCPCS: 97110; 97140; 97161 ==

== ENCOUNTER 2025-10-14 08:10 | Outpatient (OUT) | payer MEDICARE, SELFPAY ==
--- OUTSIDE RECORDS SUMMARY | 2025-10-03 03:47 | XMS_ITS | Continuity of Care Document ---
Author Organization [facility] Address [address] [place] [address] Phone Care Team Providers Care Electronic Imager Name Role Phone Landen Hanley DO Attending Provider [phone] Umesh Aquino MD Primary Care Provider Lluvia Woodward-C Attending Provider + Gagan Meyers DO Attending Provider NON STAFF Primary Care Provider Charlie Bridges MD Attending Provider [phone] Landen Hanley DO Other Provider Care Teams Patient Care Team Team Status: Active Member Role/Relationship Status Dates NON STAFF Primary Care Provider Active Visit Care Team Team Status: Inactive Member Role/Relationship Status Dates Landen Hanley DO Attending Provider Active S tart: July 23, 2025 End: July 23, 2025Maira Sanchez Care ProviderActiveStart: July 23, 2025 End: July 23, 2025 Visit Care Team Team Status: Inactive Member Role/Relationship Status Dates Umesh Aquino MD Primary Care Provider Active Start: July 23, 2025 End: July 23, 2025Landen Hanley DOAttending ProviderActiveStart: July 23, 2025 End: July 23, 2025 Visit Care Team Team Status: Inactive Member Role/Relationship Status Dates Umesh Aquino MD Primary Care Provider Active Start: July 24, 2025 End: July 24, 2025Sarah E Woodward , CSQF-ILI-GLybvfebdx ProviderActive Start: July 24, 2025 End: July 24, 2025 Visit Care Team Team Status: Inactive Member Role/Relationship Status Dates DO Vikki Holm Active Start: August 26, 2025 End: August 26, 2025NON STAFFPrimary Care ProviderActiveStart: August 26, 2025 End: August 26, 2025NON STAFFFamily ProviderActiveStart: August 26, 2025 End: August 26, 2025 Visit Care Team Team Status: Inactive Member Role/Relationship Status Dates NON STAFF Primary Care Provider Active Start: September 12, 2025 End: September 12, 2025Jubernardino Hanley DOAttending ProviderActiveStart: September 12, 2025 End: September 12, 2025 Visit Care Team Team Status: Inactive Member Role/Relationship Status Dates NON STAFF Primary Care Provider Active Start: September 12, 2025 End: September 12, 2025Jubernardino Hanley DOAttending ProviderActiveStart: September 12, 2025 End: September 12, 2025 Visit Care Team Team Status: Inactive Member Role/Relationship Status Dates NON STAFF Primary Care Provider Active Start: September 12, 2025 End: September 12, 2025Justbryanna Hanley DOAttending ProviderActiveStart: September 12, 2025 End: September 12, 2025 Visit Care Team Team Status: Active Member Role/Relationship Status Dates NON STAFF Primary Care Provider Active Start: September 19, 2025 Lise Ivey ProviderActiveStart: September 19, 2025 Visit Care Team Team Status: Active Member Role/Relationship Status Dates NON STAFF Primary Care Provider Active Start: September 23, 2025 Landen Hanley DOAttending ProviderActiveStart: September 23, 2025 Landen Hanley DOOther ProviderActiveStart: September 23, 2025 Patient Care Team Team Status: Inactive Member Role/Relationship Status Dates NON STAFF Primary Care Provider Active Start: October 03, 2025 End: October 03, 2025Justbryanna Hanley DOAttending ProviderActiveStart: October 03, 2025 End: October 03, 2025 Chief Complaint and Reason for Visit Chief Complaint Admit Date S42.295D - Other nondisplaced fracture o f upper en July 23, 2025 8:35am 4 WEEKS July 23, 2025 9:16am EPIDURAL F/U July 24, 2025 11:26am EPI- BILAT L4-- APPROVED #[id number] Octo 2024 8:37am S42.295D - Other nondisplaced fracture o f upper en September 12, 2025 8:18am 6 WEEKS September 12, 2025 1 0:02am Shoulder pain September 12, 2025 1 2:50pm BH September 19, 2025 1 0:00am Shoulder pain September 23, 2025 11:04am 2 WEEKS POST OP October 03, 2025 8:21am Reason for Visit Admit Date Fracture of proximal end of left humerus July 23, 2025 9:16am Degenerative disc disease, lumbar Septem 2024 11:26am 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 July 24, 2025 11:26am Facet arthropathy, lumbar July 11:26am Lumbosacral radiculopathy July 11:26am Myalgia July 24, 2025 11:26am Fracture of proximal end of left humerus September 12, 2025 10:02am Other nondisplaced fracture of upper end of left humerus, subsequent encoun September 12, 2025 10:02am Pre-op exam September 12, 2025 1 0:02am S/p reverse total shoulder arthroplasty September 23, 2025 11:04am Other nondisplaced fracture of upper end of left humerus, subsequent encoun October 03, 2025 8:21am S/p reverse total shoulder arthroplasty October 03, 2025 8:21am Allergies, Adverse Reactions, Alerts Allergen Type Severity Reaction Last Updated Verified Status amoxicillin Allergy Unknown Swelling of Lip/Tongue/Throa t October 03, 2025 8:32am Yes Active Penicillins Allergy Unknown Swelling of Lip/Tongue/Throa t October 03, 2025 8:32am Yes Active pine nut Allergy Unknown Swelling of Lip/Tongue/Throa t October 03, 2025 8:32am Yes Active tetanus toxoid, adsorbed Allergy Unknown Unknown Reaction October 03, 2025 8:32am Yes Active Social History Smoking Status Status Start Date End Date Date of Observa tion Ex-smoker (finding) September 23, 2025 12:47pm Observation Status Observation Response Date of Response Legal Sex Male (finding) Sex Assigned At BirthMaleMay 1959 Social History Assessments Assessment Value Date Recorded SDOH Follow up September 24, 2025 10:25amQuestionAnswerDate RecordedHas the SDOH screening changed since admission?[facility] 2024 10:25am Assessment Value Date Recorded SDOH Follow up September 24, 2025 10:24amQuestionAnswerDate RecordedHas the SDOH screening changed since admission?[facility] 2024 10:24am Family History Relationship Condition Age at Onset Recorded Date/T messi mother Lupus Unknown DeceasedUnknownMalignant neoplasm of uterusUnknownfatherDeceasedUnknownPresence of cardiac pacemakerUnknownBipolar disorderUnknownbrotherDeceasedUnknown Problems Active Problems Problem Diagnosis/Recorded Date Onset Date Stat Chronic kidney disease, stage 3b October 09, 2024 1 :25pm Unknown Active Lumbar radiculopathy August 26, 2025 11:24am Unknow n Active Lumbosacral radiculopathy July 24, 2025 4:34pm Unknown Active Myalgia July 24, 2025 4:41pm Unknown Active Chronic kidney disease, stag e II (mild) April 15, 2025 11:58am Unknown Active Anemia April 15, 2025 11:58am Unknown Activ e Fracture of proximal end of left humerus June 04, 2025 11:07am Unknown Active S/p reverse total shoulder arthroplasty September 24, 2025 6:45am Unknown Active 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 October 09, 2024 1:46pm Unknown Active Pre-op exam September 12, 2025 9:31am Unknown Ac tive Degenerative disc disease, lumbar July 24, 2025 12:28pm Unknown Active Facet arthropathy, lumbar July 24, 2025 4:36pm Unknown Active Hypertensive nephropathy April 15, 2025 11:58am Unknow n Active Other nondisplaced fracture of upper end of left humerus, subsequent encounter for fracture with nonunion September 12, 2025 9:30am Unknown Active Medications Medication Status Dose Units Route Directions Qty Days Refills S tart Date Stop Date End Date Reason(s) Instructions Adherence Oxycodone 5 mg tablet Discontinued 5 MG PO EVERY 4-6 HOURS as needed for pain 30 7 0 June 18, 2025 July 08, 2025 3:46pmFracture of proximal end of left humerusdispense #30 (thirty) Dx: S42.A left humerus fractureOxycodone 5 mg fdmhduPospefjgnyle4VWFRJWQCB 4- 6 HOURS as needed for abed7626Rsodkh 2024October 2024 12:28pm Fracture of proximal end of left humerusdispense #30 (thirty) Dx: S42.A left humerus fractureLosartan 25 mg tabletDiscontinued0.ROUTE .EZXPDUN514Ssuubkcef 4th, 2025 12:11pmOctober 2024 1:23pmTAKE 1 TABLET BY MOUTH EVERY DAYTramadol 50 mg bnmeoeHyfcfmsrsnmg54TRKZU6P3099Qryfaekag 19th, 2025 7:51amOctober 2024 1:37pmFracture of proximal end of left humerusleft humerus fracture S42.A dispense 42 (forty-two) tabletsTramadol 50 mg buurosGetkhjysbeaj84AOSXX0Z8909 August 27, 2025 1:37pmOctober 2024 9:46amFracture of proximal end of left humerusleft humerus fracture S42. dispense 42 (forty-two) tabletsNaproxen 500 mg tabletActive0.ROUTE.SAPZLIF394 September 22, 2025 7:27amTAKE 1 TABLET BY MOUTH TWICE A DAYComplies with drug therapyTramadol 50 mg tdqrxxMidgowxjqnnv21RVRGA7R as needed for painOctober 2024 11:00pmNovember 2024 8:41amleft humerus fracture S42. dispense 42 (forty-two) tabletsLosartan 25 mg qrkgowQmezxe26MNGXBktrgbkYpbjjvp 2024 11:00pmComplies with drug therapyOxycodone 5 mg aysszzZmzjoz4EGHBX6F as needed for iwmw5794Crcqglbn 12th, 2025Status post reverse total shoulder replacement Presence of unspecified artificial shoulder jointComplies with drug therapy Lurasidone 120 mg tabletActiveMGNov2024 12:00amComplies with drug therapyTizanidine 4 mg uiohojBchxav7BWFIGcdzs at bedtime as needed for muscle spasticityAl[facility]. [facility] 2023 12:00amComplies with drug therapyLamotrigine 100 mg zgxwvtJyksld452MNAMVnlrcweZltggfxo 2023 12:00amComplies with drug therapySertraline 100 mg dcjecbAsdijt028ZSWPGviauvfXmgsiaec 2023 12:00am Complies with drug therapyPimecrolimus 1 % creamDiscontinuedAPPLICTOPICAL October 09, 2024 12:00amOctwestlake regional hospital 2024 12:28pmFurosemide 20 mg tablet Njofww94PUTTJgckw 48 hoursAlbert B. [facility] Hospital 2023 12:00amComplies with drug therapy Pioglitazone 30 mg mbvcsyUtnzgl68YWEWCjczfblIqsorfih 2023 12:00amComplies with drug therapyAtorvastatin 40 mg atyzuwSalbgz08DLCCDctrr at bedtimeAlbert B. [facility] Hospital 2023 12:00amComplies with drug therapyGlyburide 5 mg iacugoZpuqza9DWIJ .COMPLEXAlbert B. Chandler Hospital 2023 12:02pchujdxrua4 mg orally 2 tablets in am, 1 tablet in pm;Complies with drug therapySemaglutide (Ozempic) 0.25 mg or 0.5 mg (2 mg/3 mL) pen injectorDiscontinued0.5MGSUBCUTevery weekAlbert B. [facility] Hospital 2023 12:00am July 24, 2025 10:41amfor 4 weeksChlorhexidine Gluconate 0.12 % mouthwash Vpxpyvnbitao14ERQGXvgpk dailyAl[facility] B. [facility] 2023 12:00amOctwestlake regional hospital 2024 12:25pmFexofenadine 180 mg xfiafvXqwdsn250DSOFUvmwzkyCozhnwny 2023 12:00am allergy symptomsComplies with drug therapyGabapentin 300 mg ykrmkpuUqrjvi447DWAR Three times dailyAl[facility] B. [facility] Hospital 2023 12:00amComplies with drug therapyMetformin 1,000 mg mwmsosEmdsfl4122HLOOWfxuk dailyAlbert B. [facility] Hospital 2023 12:00amComplies with drug therapyInsulin Lispro Protamin-Lispro 100 unit/mL (75-25) insulin penActive 28UNITSUBCUTBedtimeNov2023 12:00amdiabetesComplies with drug therapy Losartan 50 mg rbnltaOunuunfyoasf86NDWAUhukfBdzxjpzl 27th, 2024 12:00amJune 2024 12:23pmLurasidone 80 mg eswcsvPkxbbc95XTKWQfsspgeQaghqtug 27th, 2024 12:00amComplies with drug therapyLurasidone 20 mg yyssecZnigrb98AEPWMslmqep October 09, 2024 12:00amComplies with drug therapySemaglutide (Ozempic) 0.25 mg or 0.5 mg (2 mg/3 mL) pen vbbhrrzmFnobdf5SCVHHVCTfrnbf weekSept2024 10:41amdiabetesfor 4 weeksComplies with drug therapyLosartan 50 mg tablet Pbfsviaspvri38UKJPWlpkgYwnq 3rd, 2025 12:23pmJune 2024 12:24pmLosartan 25 mg nunaopGytmfljqoidn63NILFEtxcm111Vrlz 3rd, 2025 12:23pmSept2024 12:11pmOxycodone 5 mg udqrplVsuiesikgvkf9MDVLQDWGT 4-6 HOURS as needed for pain 4270July 2024 11:07amFracture of proximal end of left humerusdispense #42 (forty-two) Dx: S42.A left humerus fractureTramadol 50 mg yfckkwHxlisexwozth42XYPYP7D8828 June 24, 2025 11:00pmSeptember 2024 7:52amFracture of proximal end of left humerusleft humerus fracture S42.A dispense 42 (forty-two) tabletsNaproxen 500 mg dybbwxRbztiuwnppaf285ERJNMyuaw cftsh91990Fmwvdw 2024 11:00pmNov2024 7:28amCyclobenzaprine 5 mg upkbalDdvikobfknau8XLLZXzyor times daily as needed for muscle qfqqv2364Iiqonr 2024 11:00pmOctober 2024 12:25pmTramadol 50 mg mltldnKtgwbe18HBLV every 6 to 8 hours as needed for ihqz1661Cfbgonvs 21st, 2025 8:41amStatus post reverse total shoulder replacement Presence of unspecified artificial shoulder jointleft humerus fracture S4 dispense 42 (forty-two) tabletsComplies with drug therapyTramadol 50 mg tablet Tjeldbsypatp55GTARM8U7720Usayrle 2024 9:46amOctober 2024 12:30pm Fracture of proximal end of left humerusleft humerus fracture S4A dispense 42 (forty-two) tablets Medical Equipment Device Date Implanted Device Details Coated shoulder humeral stem prosthesis September 23, 2025 CINTHIA: ()[id number] Issuing Agency: [facility] Device Id: [id number] Expiration Date: 2033-06-16 Lot Number: [id number] shoulder prosthesis headNovember 2024UDI: ()[id number] Issuing Agency: [facility] Device Id: [id number] Expiration Date: 2035-04-02 Lot Number: [id number] shoulder prosthesis base plateNovember 2024 CINTHIA: ()[id number] Issuing Agency: [facility] Device Id: [id number] Expiration Date: 2035-08-08 Lot Number: [id number] prosthesis screwNovember 2024UDI: ()[id number] Issuing Agency: [facility] Device Id: [id number] Expiration Date: 2035-05-01 Lot Number: [id number] prosthesis screwNovember 2024UDI: ()[id number] Issuing Agency: [facility] Device Id: [id number] Expiration Date: 2035-08-22 Lot Number: [id number] prosthesis screwNovember 2024UDI: ()[id number] Issuing Agency: [facility] Device Id: [id number] Expiration Date: 2035-04-17 Lot Number: [id number] prosthesis screwNovember 2024UDI: ()[id number] Issuing Agency: [facility] Device Id: [id number] Expiration Date: 2033-10-08 Lot Number: [id number] prosthesis screwNovember 2024UDI: ()[id number] Issuing Agency: [facility] Device Id: [id number] Expiration Date: 2035-02-13 Lot Number: [id number] shoulder prosthesis bodyNovember 2024UDI: ()[id number] Issuing Agency: [facility] Device Id: [id number] Expiration Date: 2035-07-08 Lot Number: [id number] reverse shoulder prosthesis cupNovember 2024UDI: ()[id number] Issuing Agency: [facility] Device Id: [id number] Expiration Date: 2030-04-30 Lot Number: [id number] Procedures Procedure Date Performed Status XR shoulder LT min 2V* July 23, 2025 7:36 am completed XR shoulder LT min 2V* September 12, 2025 7:19am completed Relevant Diagnostic Tests and/or Laboratory Data Laboratory Results Test Collection Date/Time Result Date/Time Result Interpretation Reference Range Result Comment Performing Site Corrected White Blood Count September 12, 2025 12:27pm September 12, 2025 12:39pm 5.4 10*3/uL 4.1-10.5FHigh[facility] [id number] [address] [facility] [address]Iyqzfcnlxhy WBC CountOctober 2024 12:27pmOctober 2024 12:39pm5.4 10*3/uL4.1-10.5FOhio[facility] [id number] [address] [facility] [address]Tuv Blood CountOctober 2024 12:27pmOctober 2024 12:39pm3.29 10*6/uLBelow low normal3.90-5.60[facility] [id number] [address] [facility] [address]PosgkdfxhmBxjmrxj 2024 12:27pmOctober 2024 12:39pm 11.2 g/dLBelow low .0-17.0[facility] [id number] [address] [facility] 43[address]LqngmarwchBkoeitl 2024 12:27pmOctober 2024 12:39pm 32.5 %Below low .8-50.0[facility] [id number] [address] [facility] [address]Dzwb Corpuscular VolumeOctober 2024 12:27pmOctober 2024 12:39pm98.8 fL83.5-101[facility] [id number] [address] [facility] [address]672Iyng Corpuscular HemoglobinOctober 2024 12:27pmOctober 2024 12:39pm33.9 pg27.5-35.2FOhioHealth [facility]ering[facility] [id number] [address] [facility] [address]Asbr Corpuscular Hemoglobin ConcentOctober 2024 12:27pm September 12, 2025 12:39pm34.3 g/dL32.5-35.6FOhioHealth [facility] [id number] [address] [facility] [address]Fcn Cell Distribution WidthOctober 2024 12:27pmOctober 2024 12:39pm13.5 %12.0-14.8[facility] [id number] [address] [facility] [address]Baqjpmri CountOctober 2024 12:27pmOctober 2024 12:04fr991 10*3/gU826-494YxqwxrbygCleveland Clinic [facility] [id number] [address] [facility] [address]Hckz Platelet VolumeOctober 2024 12:27pmOctober 2024 12:39pm8.0 fL6.6-10.1FOhioHealth [facility] [id number] [address] [facility] [address]Kuyomfwtmvj (%) (Auto)September 12, 2025 12:27pmOctober 2024 12:39pm71.5 %.[facility] [id number] [address] [facility] [address]Abrtytpqzgd (%) (Auto)September 12, 2025 12:27pmOctober 2024 12:39pm18.6 %.[facility] [id number] [address] [facility] [address]Wjiepbvmh (%) (Auto)September 12, 2025 12:27pmOctober 2024 12:39pm8.1 %.[facility] [id number] [address] [facility] [address]Lvoekfizspn (%) (Auto)September 12, 2025 12:27pmOctober 2024 12:39pm1.3 %.[facility] [id number] [address] [facility] [address]Oralenwtd (%) (Auto)September 12, 2025 12:27pmOctober 2024 12:39pm0.5 %.[facility] [id number] [address] [facility] [address]Ioiakyetf RBC Relative Count (auto)September 12, 2025 12:27pm September 12, 2025 12:39pm0.1 /100{WBC}0-0.5FOhioHealth [facility] [id number] [address] [facility] [address]Toftxwhueab # (Auto)September 12, 2025 12:27pmOctober 2024 12:39pm3.9 10*3/uL1.8-7.7FOhioHealth [facility] [id number] [address] [place], [place] [address]Lymphocytes # (Auto)September 12, 2025 12:27pmOctober 2024 12:39pm1.0 10*3/uL1.00-4.8[facility] [id number] [address] [facility] [address]Ymfcykgnq # (Auto)September 12, 2025 12:27pmOctober 2024 12:39pm0.4 10*3/uL0.0-0.8[facility] [id number] [address] [facility] [address]Xrkmdnwddml # (Auto)September 12, 2025 12:27pmOctober 2024 12:39pm0.1 10*3/uL0.0-0.45[facility] [id number] [address] [facility] [address]Vxxayjuqv # (Auto)September 12, 2025 12:27pmOctober 2024 12:39pm0.0 10*3/uL0.0-0.2FOhioHealth [facility] [id number] [address] [facility] [address]Zewqd ColorOctober 2024 1:15pmOctober 2024 1:29pm YellowYellowCleveland Clinic Avon Hospital [facility] [id number] [address] [place] [id number] AppearanceOctober 2024 1:15pmOctober 2024 1:29pmCloudyAbnormal (applies to non-numeric results)ClearCleveland Clinic Av[facility]tr [id number] [address] [facility] [address]Jkpct Specific GravityOctober 2024 1:15pmOctober 2024 1:29pm1.0291.001-1.030[facility] [id number] [address] [facility] [address]Qaafw pHOctober 2024 1:15pmOctober 2024 1:29pm5.5 5.0-9.0[facility] [id number] [address] [facility] [address]Jphzz Leukocyte EsteraseOctober 2024 1:15pmOctober 2024 1:29pmNegativeNegativeCleveland Clinic Av[facility] [id number] [address] [facility] [address]Shyng NitriteOctober 2024 1:15pmOctober 2024 1:29pm NegativeNegativeCleveland Clinic [facility] [id number] [address] [facility] [address]Swjwv ProteinOctober 2024 1:15pmOctober 2024 1:29pm 20 mg/dLAbove high normalNegativeCleveland Clinic [facility] [id number] [address] [facility] [address]Urfac Glucose (UA)September 12, 2025 1:15pmOctober 2024 1:29pmNormal mg/dLNormalCleveland Clinic [facility] [id number] [address] [facility] [address]Euygo KetonesOctober 2024 1:15pmOctober 2024 1:29pm TraceAbove high normalNegativeCleveland Clinic [facility] [id number] [address] [facility] [address]Dmesb UrobilinogenOctober 2024 1:15pmOctober 2024 1:29pm4 mg/dLAbove high normalNormalCleveland Clinic [facility] [id number] [address] [facility] [address]Rbtck BilirubinOctober 2024 1:15pmOctober 2024 1:29pmNegativeNegativeCleveland Clinic [facility] [id number] [address] [facility] [address]Yisln Occult BloodOctober 2024 1:15pmOctober 2024 1:29pmNegativeNegativeCleveland Clinic [facility] [id number] [address] [facility] [address]Wzpos RBCOctober 2024 1:15pmOctober 2024 1:47ms9-0 [HPF]0-[facility] [id number] [address] [facility] [address]Wjffq WBCOctober 2024 1:15pmOctober 2024 1:57ie5-0 [HPF]0-4FOhioHealth [facility]ering[facility] [id number] [address] [facility] [address]Hvlyz Squamous Epithelial CellsOctober 2024 1:15pmOctober 2024 1:24ce8-3 [HPF]0-[facility] [id number] [address] [facility] [address]Mbqws BacteriaOctober 2024 1:15pmOctober 2024 1:36pmNone seen [HPF]None SeenCleveland Clinic Avon Hospital Ctr [id number] [address] [facility] [address]Cblmv Hyaline CastsOctober 2024 1:15pmOctober 2024 1:50re61-51 [LPF]Above high normal0-8[facility] [id number] [address] [facility] [address]Rbhov MucusOctober 2024 1:15pmOctober 2024 1:36pm1+ [LPF]Abnormal (applies to non-numeric results)[facility] [id number] [address] [facility] [address]Wozjnkr LevelOctober 2024 12:27pmOctober 2024 1:58kj428 mg/dLAbove high kpjtlo35-839DIT recommended reference rangeCleveland Clinic Avon Hospital [facility]tr [id number] [address] [facility] [address]Irsux Urea NitrogenOctober 2024 12:27pmOctober 2024 1:16pm27 mg/dLAbove high normal7-25[facility] [id number] [address] [facility] [address]EwgocduzjvHybucqz 2024 12:27pmOctober 2024 1:16pm 1.62 mg/dLAbove high normal0.70-1.30[facility] [id number] [address] [facility] [address]Ydmbhhzlb GFR (CKD-EPI)September 12, 2025 12:27pmOctober 2024 1:16pm46.237 mL/MinCleveland Clinic Avon Hospital [facility]tr [id number] [address] [facility] 22177Kgxzol LevelOctober 2024 12:27pmOctober 2024 1:16pm 138 mmol/F365-850IdpmgwaxhCleveland Clinic [facility]on [facility] [id number] [address] [place] [address]56[address]Potassium LevelOctober 2024 12:27pmOctober 2024 1:16pm4.9 mmol/L3.5-5.1FOhioHealth [facility]erington [facility] [id number] [address] [facility] [address]Rdnrgtco LevelOctober 2024 12:27pmOctober 2024 1:39oy929 mmol/T63-001HhdzdyhsuCleveland Clinic Avon Hospital [facility]tr [id number] [address] [facility] [address]Fetnja Dioxide LevelOctober 2024 12:27pmOctober 2024 1:16pm25.6 mmol/L21.0-31.0[facility] [id number] [address] [facility] [address]Mjyvh GapOctober 2024 12:27pmOctober 2024 1:16pm 11.3 mEq/L6.0-15.0[facility] [id number] [address] [place], [place] [address]Calcium LevelOctober 2024 12:27pmOctober 2024 1:16pm8.8 mg/dL8.6-10.3FOhioHealth Pickerington [facility] [id number] [address] [place] [address]Vjtbs ProteinOctober 2024 12:27pmOctober 2024 1:16pm6.2 g/dLBelow low normal6.4-8.9[facility] [id number] [address] [place] [address] 90[address]GtbksdtMgseyfp 2024 12:27pmOctober 2024 1:16pm4.0 g/dL3.5-5.7FOhioHealth [facility]ering[facility] [id number] [address] [place] [address] 189[address]WsrfciagDrxgyds 2024 12:27pmOctober 2024 1:16pm2.2 g/dLCleveland Clinic Avon Hospital Ctr [id number] [address] [place] [address]Ivnnrze/Globulin RatioOctober 2024 12:27pmOctober 2024 1:16pm1.8[facility] [id number] [address] [place] [address]Bljoe BilirubinOctober 2024 12:27pmOctober 2024 1:16pm0.4 mg/dL0.3-1.0[facility] [id number] [address] [place] [address] 17374Yqcfxohqe Amino Transf (AST/SGOT)September 12, 2025 12:27pm September 12, 2025 1:16pm14 U/H61-12UhjktlwxzCleveland Clinic [facility]on [facility]tr [id number] [address] [facility] [address]Eveotwj Aminotransferase (ALT/SGPT)September 12, 2025 12:27pm September 12, 2025 1:16pm11 U/L7-52[facility] [id number] [address] [place] [address]Llmabaah PhosphataseOctober 2024 12:27pmOctober 2024 1:16pm87 U/J36-035UezttieisCleveland Clinic Avon [facility]tr [id number] [address] [place], [place] [id number] Creatinine Clearance (ChemOctober 2024 12:27pm September 12, 2025 1:16pmN/[facility] [id number] [address] [place] [address] [id number] F7bXkmbcqe 2024 12:27pmNovember 2024 8:58am6.0 %Above high normal4.3-5.6Increased risk for diabetes: 5.7 - 6.4diabetes: >6.4glycemic control for adults with diabetes: <7.0[facility] [id number] [address] [place] [address] [id number] Average GlucoseOctober 2024 12:27pmNovember 2024 8:40go867 mg/dLC[facility] [id number] [address] [place] [address] [id number] Diagnostic Imaging Reports Author Shameka Bedolla [facility] HospitalAuthoredSeptember 2024 12:09pmReport Dictated Date/TimeDictated ByStatusRadiology ReportSeptember 2024 12:09pm Liana GuerreroUniversity Hospitals [facility] [address] [place] [address] XRay Report Signed Patient: Robbin Ahn MR#: [id number] : 1960 Acct:[id number] Age/Sex: 65 / M ADM Date: 5 [place] [facility] [place]: Type: REG CLI Attending Dr: Landen Hanley DO Copies to: Landen Hanley DO~ Ordering Provider: Landen Hanley DO Date of Service: 07/23/25 XR/XR shoulder LT min 2V*: S42.295D - Other nondisp laced fracture of upper end of le... LEFT SHOULDER - 3 views CLINICAL HISTORY: Follow-up humerus fracture COMPARISON: 06/25/2025 AP, Y and Grashey views were obtained. There is osteopenia. Fracture is again seen at the proximal humerus. There is similar displacement. There is minimal callus formation. There is no new fracture or dislocation. There is, however, and inferior displacement of the humeral head with apparent widening of acromiohumeral interval and glenohumeral joint. This could relate to joint effusion. There are no significant soft tissue abnormalities. XR/XR shoulder LT min 2V* IMPRESSION: STABLE DISPLACED PROXIMAL HUMERUS FRACTURE. QUESTION OF JOINT EFFUSION. Impression dictated by: Shameka Bedolla M.D. 07/23/2025 12:12 PM Dictation Location: [place] [address] Transcribed By: [facility] 07/23/25 1212 Dictated By: Shameka Bedolla MD 07/23/25 1209 Signed By: <Electronically signed by MD Shameka Bedolla in OV> 07/23/25 1212 Author Adin Oakley [facility] HospitalAuthoredOctwestlake regional hospital 2024 6:01pmReportDictated Date/TimeDictated ByStatusRadiology ReportOctober 2024 6:01pmToshia ZapataMcCullough-Hyde Memorial Hospital [facility] [address] [place] [address] XRay Report Signed Patient: Robbin Ahn MR#: [id number] : 1960 Acct:[id number] Age/Sex: 65 / M ADM Date: 5 Loc: [facility] [place] Room: Type: REG CLI Attending Dr: Landen Hanley DO Copies to: Landen A Dayan, DO~ Ordering Provider: Landen Hanley DO Date of Service: 09/12/25 XR/XR shoulder LT min 2V*: S42.295D - Other nondisp laced fracture of upper end of le... LEFT SHOULDER - - 3 views CLINICAL HISTORY: Proximal humeral fracture follow-up COMPARISON: 07/23/2025 FINDINGS: Left humeral neck fracture demonstrates increased lucency along the fracture margins which may suggest early osteolysis/healing.. Stable alignment and impaction and angulation. No dislocation. Degenerative changes AC joint and glenohumeral joint. XR/XR shoulder LT min 2V* IMPRESSION: Question early fracture healing. No significant interval displacement or evidence of dislocation. Impression dictated by: Adin Oakley M.D. 09/12/2025 6:04 PM Dictation Location: [place] [address] Transcribed By: [facility] 09/12/251803 Dictated By: Adin Oakley MD 09/12/251800 Signed By: <Electronically signed by Adin Oakley MD in OV> 09/12/251803 Vital Signs Vital Reading Result Reference Range Collection Date/Time Height 69 [in_i] July 23, 2025 8:77nkAguons843.13 kgSeptember 2024 8:31amBMI (Body Mass Index)36.1 kg/s3Nrajfhcgy2024 8:07bbRrxunj33 [in_i]July 24, 2025 10:85skTjizxx977.02 kgSeptember 2024 10:33amHeart Rate82 /ffs17-261 July 24, 2025 10:33amOxygen saturation by Pulse gadyvwsn45 %95-100 July 24, 2025 10:33amBP Zhxmmoyf816 mm[Hg]100-140September 2024 10:33amBP Hqddkuvek08 mm[Hg]60-100Sept2024 10:33amBMI (Body Mass Index)38.0 kg/d6Gjqbfplkc 2024 10:76jmDgsiva48 [in_i]August 26, 2025 7:46amHeart Rate80 /hcu02-159BskobjmAugust 26, 2025 7:40amRespiratory rate18 /min 12-24Oct2024 7:40amOxygen saturation by Pulse sxrwbuwy10 %95-100 August 26, 2025 7:40amBP Wkuyegan513 mm[Hg]100-140Oct2024 7:40amBP Rasmxefca48 mm[Hg]60-100October 2024 7:51rvLegibw22 [in_i]September 23, 2025 12:20buIvvalf993.60 kgAt[facility] Health [facility]2024 6:21amBody Qxeeynvrvnp04.9 [degF] 97.6-99.0September 24, 2025 8:20amHeart Rate98 /qok65-119GtzuwiddSeptember 24, 2025 8:20amRespiratory rate16 /lnx17-07XnsikrzkSeptember 24, 2025 8:20amOxygen saturation by Pulse ohcsossj24 %95-100Nov2024 8:20amBP Eaxoxytv278 mm[Hg]100-140 September 24, 2025 8:20amBP Znaonsitv57 mm[Hg]60-100[facility] 8:20am Inhaled oxygen flow rate1 L/[facility] 2024 4:37am Advance Directives Advance Directive Response Recorded Date/ Time Advance Directives No April 21 3:57pm Insurance Providers Guarantor Robbin Daigle [place] Address [address]Home Phone: Coverage Status Update:2025 Payer Group Member ID Coverage Type Subscriber Relationship to Subscriber Effective Date Expiration Date Medicaid [id number] A [place] Id: [id number] [address] [id number] Home Phone: [facility] [place] [facility] [place] [id number] A [place] Id: [id number] [address] [id number] Home Phone: [employer] Id: [id number] A [place] Id: [id number] [address] [id number] Home Phone: self Encounters Encounter Location(s) Arrival/Admit Date Discharge/Departure Date Discharge/Departure Disposition Provider(s) Departed Clinical -[facility] July 23, 2025 8:35am July 23, 2025 8:36am Discharged to home care or self care (routine discharge) Landen Hanley DO Departed Physician/ Provider Office Visit -[facility] July 23, 2025 9:16am July 23, 2025 10:12am Discharged to home care or self care (routine discharge) Landen Hanley DO Departed Physician/ Provider Office Visit -[facility] [place] July 24, 2025 11:26am July 24, 2025 12:05pm Discharged to home care or self care (routine discharge) Lluvia Woodward APRN-COUNTER CLERK-C Departed Physician/ Provider Office Visit -[facility] [place] August 26, 2025 8:37am August 26, 2025 9:03am Discharged to home care or self care (routine discharge) Gold Burgess DO Departed Clinical -[facility] September 12, 2025 8:18am September 12, 2025 8:19am Discharged to home care or self care (routine discharge) Landen Hanley DO Departed Physician/ Provider Office Visit -[facility] September 12, 2025 10:02am September 12, 2025 12:21pm Discharged to home care or self care (routine discharge) Landen Hanley DO Departed Clinical -Pre-Surgica l Testing September 12, 2025 12:50pm September 12, 2025 12:51pm Discharged to home care or self care (routine discharge) Landen Hanley DO Registered [facility] September 19, 2025 1 0:00am Charlie Mcdonald MDNon-patient / [facility] September 23, 2025 11:04amJuMOISES Emeryeparted Physician/Provider 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 Unknown July 24, 2025 11:26am Facet arthropathy, lumbar Unknown 2024 11:26am Lumbosacral radiculopathy Unknown 2024 11:26am Myalgia Unknown July 24, 2025 11:26am Fracture of proximal end of left humerus Unknown September 12, 2025 10:02am Other nondisplaced fracture of upper end of left humerus, subsequent encoun Unknown September 12, 2025 10: 02am Pre-op exam Unknown September 12 10:02am S/p reverse total shoulder arthroplasty Unknown September 23, 2025 11:04am Other nondisplaced fracture of upper end of left humerus, subsequent encoun Unknown October 03, 2025 8: 21am S/p reverse total shoulder arthroplasty Unknown October 03, 2025 8:21am Assessments Diagnosis Onset Date Resolution Status Admit Date Fracture of proximal end of left humerus acuteSeptember 2024 9:16amDegenerative disc disease, lumbarchronic July 24, 2025 11:26amDiabetic nephropathy associated with type 2 diabetes mellituschronicSeptember 2024 11:26amFacet arthropathy, lumbarchronic July 24, 2025 11:26amLumbosacral radiculopathychronicSeptember 2024 11:26amMyalgiachronicSeptember 2024 11:26amFracture of proximal end of left humerusacuteOctober 2024 10:02amOther nondisplaced fracture of upper end of left humerus, subsequent encounacuteOctober 2024 10:02amPre-op exam acuteOctober 2024 10:02amS/p reverse total shoulder arthroplastyacute September 23, 2025 11:04amOther nondisplaced fracture of upper end of left humerus, subsequent encounacuteNov2024 8:21amS/p reverse total shoulder arthroplastyacuteNov2024 8:21am Plan of Treatment Author Landen Hanley [facility] HospitalAuthoredSeptember 2024 9:38amScott returns with left proximal humerus fracture. At this juncture we have discussed the findings and diagnosis as well as personally reviewed appropriate imaging and performed interpretation of related testing and examination with the patient in office today. Would continue advancing with physical therapy for both active and passive motion without restrictions. Okay to increase weightbearing as tolerated. Will plan to see back for 6 weeks recheck with x-ray The patient has been involved in our cooperative treatment plan and agrees to move forward with treatment at this time. Radiographs reviewed with patient today. Patient may continue to progress activity and weight bearing as tolerated. Patient has no formal restrictions. We will fax updated order to [facility]. Patient can call if he needs a refill of tramadol. Patient is to follow up in 6 weeks with xray Note scribed by AN Clifton, reviewed and amended by myself Landen Hanley D.O. Author Natty Kelsey [facility] 2024 8:44amPatient is slowly progressing from surgery. Incision continues to heal well. Advised continuing to work on hand and elbow range of motion on at. He should continue to work on passive range of motion on his own at home. These were demonstrated in office and exercise handout was given to patient. He will do this for another few weeks. He will follow up in 2 weeks with xrays. We will discuss starting formal physical therapy at that time. Author Lluvia Woodward [facility] 4:43pmIt is my impression that the patient has lumbosacral radiculopathy. The patient initially presented to the office with reports of right leg weakness. EMG on 02/07/2023 identified severe polyneuropathy but could not exclude a radicular process. MRI of the lumbar spine on 05/12/2023 revealed degenerative changes, most prominent at L4-L5, where there was a circumferential disc bulge, facet hypertrophy, and moderate spinal canal stenosis with moderate right and mild left neural foraminal stenosis. MRI also identified mild spinal stenosis and right neural foraminal stenosis at L5-S1. The patient reports intermittent low back pain with radiation to the bilateral buttock recently, consistent with the S1 dermatomal distribution. He also has very mild dorsiflexion weakness on the right which he states was gradual onset approximately 1 year ago. This could be secondary to L5 radiculopathy. Bilateral L4 epidural injections 02/11/2025 were well tolerated and highly effective (around 70-80% pain reduction with effects lasting > 3 months). They improved his quality of life and ability to perform daily activities. He wishes to proceed with further injections for symptom management. PLAN: - Repeat bilateral L4 epidural injections are scheduled for 07/29/2025. Risks including but not limited to hematoma, contrast reaction, infection, cumulative steroid dose risk, reduced bone mineral density, allergic reaction, and weakness have been reviewed with the patient. He verbalizes understanding and wishes to proceed - Could consider switching to L5 epidural injections in the future if symptoms remain more consistent with this dermatomal distribution - I recommended continuation of physical therapy to try to help improve right dorsiflexion strength. If this worsens or fails to improve with PT, would consider updated MRI of the lumbar spine in the future. I did discuss ordering updated EMG and MRI lumbar spine at today's appointment, but the patient declined this See above. See above. History of myalgia. The patient has tried tizanidine 4 mg QHS PRN for his symptoms with mild relief. Trigger point injections also provided benefit previously. Symptoms are stable. PLAN: - Monitor clinically ?? The patient has evidence of severe polyneuropathy as identified on BLE EMG from January 2023. He has a history of diabetes which is likely causative for the neuropathy. Clinical exam reveals depressed reflexes with diminished vibratory sensation in the distal lower extremities. Neuropathy could also be contributory to his right dorsiflexion weakness. PLAN: - The patient is currently taking gabapentin 300 mg by mouth three times a day (prescribed by PCP) - Follow up closely with primary care provider for diabetes management - Check feet regularly for wounds Diagnoses and treatment plan discussed. The patient verbalizes understanding and is agreeable to the plan. All questions answered. Author Landen Hanley [facility] HospitalAuthoredOctober 2024 9:54amScott returns with left proximal humerus fracture. At this juncture we have discussed the findings and diagnosis as well as personally reviewed appropriate imaging and performed interpretation of related testing and examination with the patient in office today. With his x-ray showing worsening of the fracture with no improvement in his function I would consider this nonunion. We discussed reverse shoulder arthroplasty as treatment for this in order to improve function. 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 At this juncture we have discussed the findings and diagnosis as well as reviewed appropriate imaging and performed interpretation of testing. Surgical intervention is recommended. Prior medical notes and history have been reviewed. Surgical versus non-operative management have been discussed in detail and non-operative management was given as an option. The risks of surgical intervention were given. Pre-operative optimization will be done prior to surgical procedure to limit terrance-operative risks. I have discussed the planned procedure, how and who performs the procedure, and the personnel involved. Cardiovascular, pulmonary, and other life threatening episodes can occur during surgery although there is a low risk of these happening. Surgical risks including bleeding, neurovascular injury, wound closure problems, clotting disorders including pulmoary embolism and infection were discussed. Terrance-operative risks including infection, bleeding, wound healing problems, and need for further surgery were discussed. It was discussed that there is a possibility of blood transfusion with any surgical procedure and the risks involved in receiving a blood transfusion. Possibility of, and need for, future bracing or DME use, physical or occupational therapy, mental therapy, rehabilitation, pain management and need for secondary procedures was discussed. I have warned against smoking and the use of tobacco products due to the risks associated with them, in particular, poor healing. I have advised against the parts counterman use of narcotic pain medication. I have advised to follow all post-operative instructions in order to obtain the best outcome. Informed consent has been verbally affirmed and signed as indicated. Plan for Alison reverse shoulder arthroplasty. Preoperative block. Beachchair positioning The patient has been involved in our cooperative treatment plan and agrees to move forward with treatment at this time. Radiographs reviewed in detail with patient as displacement of the fracture. Would treat this as a nonunion at this time. As patient has poor function of the arm at this time, would recommend left reverse total shoulder arthroplasty at this time. Surgical procedure, risks, recovery and restrictions discussed in detail. Patient was in understanding and wishes to proceed. Advised patient to discontinue physical therapy at this time until after surgery. Future Tests Future scheduled test information is unavailable Pending Tests Pending diagnostic test information is unavailable Future Visits Future appointment information is unavailable Future Procedures Procedure Name Ordered Date Scheduled Date Initiate Home Health September 24, 2025 10:22am 1 Days Admit Status Order September 23, 2025 3:58pm No vember 2024 3:58pm Discharge Order September 23, 2025 7:15am Novem lucia 2024 7:15am Future Medications Future medication information is unavailable Patient Instructions Instruction Admit Date Know your Meds September 23, 2025 11:04am
--- OUTSIDE RECORDS SUMMARY | 2025-10-07 13:15 | XMS_ITS | Encounter Summary ---
Author Organization [facility] Address [address] [place] [address] Care Team Providers Care Azure Principal Solution Specialist Name Role Phone EmyarielbrendaIdalmis worley DEVON Unavailable [phone] Umesh Aquino MD Primary Care Provider [phone] Reason for Visit * ReasonCommentsShoe checkScott Anabelle 65yo patient returns for 3 week check, patient states Left shoe feels tight. Also requested shoe be stretched. 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 20-30 cigarettes/day Alcohol UseStandard Drinks/WeekCommentsNever0 (1 standard drink = 0.6 oz pure alcohol)B1300 Health LiteracyAnswerDate RecordedHow often do you need to have someone help you when you read instructions, pamphlets, or other written material from your doctor or pharmacy?Never05/03/2024Humiliation, Afraid, Rape, and Kick questionnaireAnswerDate RecordedWithin the last year, have you been afraid of your partner or ex-partner?No11/02/2023Within the last year, have you been humiliated or emotionally abused in other ways by your partner or ex-partner?No11/02/2023Within the last year, have you been kicked, hit, slapped, or otherwise physically hurt by your partner or ex-partner?No11/02/2023Within the last year, have you been raped or forced to have any kind of sexual activity by your partner or ex-partner?No11/02/2023Social Connection and Isolation Panel AnswerDate RecordedIn a typical week, how many times do you talk on the phone with family, friends, or neighbors?Twice a week11/02/2023How often do you get together with friends or relatives?Once a week11/02/2023How often do you attend nondenominational or taoism services?Never3Do you belong to any clubs or organizations such as nondenominational groups, unions, fraternal or athletic groups, or school groups?No11/02/2023How often do you attend meetings of the clubs or organizations you belong to?Never11/02/2023re you , , , , never , or living with a partner?Never svbujht6711/02/2023 AUDIT-CAnswerDate RecordedQ1: How often do you have a drink containing alcohol? Never11/02/2023Q2: How many drinks containing alcohol do you have on a typical day when you are drinking?Patient does not drink11/02/2023Q3: How often do you have six or more drinks on one occasion?Never11/02/2023Overall Financial Resource Strain (CARDIA)AnswerDate RecordedHow hard is it for you to pay for the very basics like food, housing, medical care, and heating?Not hard at all 11/02/2023[facility] [place] of Occupational Health - Occupational Stress QuestionnaireAnswerDate RecordedDo you feel stress - tense, restless, nervous, or anxious, or unable to sleep at night because yourmind is troubled all the time - these days?Not at all11/02/2023Exercise Vital SignAnswerDate RecordedOn average, how many days per week do you engage in moderate to strenuous exercise (like a brisk walk)?0 days11/02/2023On average, how many minutes do you engage in exercise at this level?0 min11/02/2023Hunger Vital SignAnswerDate Recorded Within the past 12 months, you worried that your food would run out before you got the money to buymore.Never true11/02/2023Within the past 12 months, the food you bought just didn't last and you didn't have money to get more.Never true 11/02/2023RAPARE - TransportationAnswerDate RecordedIn the past 12 months, has lack of transportation kept you from medical appointments or from getting medications?No11/02/2023In the past 12 months, has lack of transportation kept you from meetings, work, or from getting things needed for daily living?No 11/02/2023Housing Stability Vital SignAnswerDate RecordedIn the last 12 months, was there a time when you were not able to pay the mortgage or rent on time?No 11/02/2023In the last 12 months, how many places have you lived?In the last 12 months, was there a time when you did not have a steady place to sleep or slept in [facility] (including now)?No11/02/2023Sex and Gender InformationValueDate RecordedSex Assigned at BirthNot on fileLegal SexMale 01/25/2023 8:21 PM EDTGender IdentityNot on fileSexual OrientationNot on file documented as of this encounter Last Filed Vital Signs Vital SignReadingTime TakenCommentsBlood Pressure--Pulse--Temperature-- Respiratory Rate--Oxygen Saturation--Inhaled Oxygen Concentration--Rgrzib090 kg (258 lb)10/07/2025 1:12 PM ISXOrudov188.3 cm (5' 9 )10/07/2025 1:12 PM ESTBody Mass Index38. 1:12 PM ESTdocumented in this encounter Progress Notes * Kai Lawrence DPM - 10/07/2025 1:15 PM EST Images from the original note were not included. Subjective Patient ID: Robbin Ahn is a 65 y.o. male who presents for Shoe check (Robbin Ahn 65yo patient returns for 3 week check, patient states Left shoe feels tight. Also requested shoe be stretched.). HPI Established patient returns to clinic for diabetic shoe Checkup. He states that the left shoe is a little too tight near the forefoot due to his Charcot deformity but otherwise he is pleased with theshoes. Review of Systems Constitutional: Positive for activity change. Negative for appetite change. Respiratory: Negative for chest tightness and shortness of breath. Cardiovascular: Negative for chest pain. Musculoskeletal: Positive for arthralgias and gait problem. Skin: Negative for color change and wound. Neurological: Positive for weakness and numbness. Psychiatric/Behavioral: Negative for agitation and behavioral problems. Hematological: Does not bruise/bleed easily. Endocrine: Negative for cold intolerance and heat intolerance. Allergic/Immunologic: Negative for immunocompromised state. Past medical History Past Medical History: Diagnosis Date Allergies At high risk for falls Bipolar disorder (HCC) Cervical pain (neck) Chronic kidney disease (CKD), stage III (moderate) ([facility]) Constipation, chronic COVID-19 virus detected Depression Diabetes mellitus, type 2 ([facility]) Encounter for initial annual wellness visit (AWV) in Medicare patient 11/02/2023 Encounter for subsequent annual wellness visit (AWV) in Medicare patient 11/02/2023 Environmental allergies Eustachian tube dysfunction Fatigue Hip pain, chronic, right HLD (hyperlipidemia) 12/28/2023 Left ankle pain Left foot pain Lower extremity edema 12/28/2023 Lumbar back pain with radiculopathy affecting left lower extremity 12/25/2023 Morbid obesity with body mass index (BMI) of 40.0 to 49.9 ([facility]) Obesity (BMI 30-39.9) 10/23/2023 Osteoarthritis of hip Plantar fasciitis, left Pneumonia Pre-operative clearance 10/23/2023 Primary hypertension 10/23/2023 Spondylosis, cervical Swelling of left foot TIA (transient ischemic attack) Tinea cruris Tremor of right hand Type 2 diabetes mellitus with Charcot's joint of left foot ([facility]) Type 2 diabetes mellitus with peripheral neuropathy ([facility]) Varus foot deformity, acquired, left Vitamin B12 deficiency Vitamin deficiency Medications Current Outpatient Medications: atorvastatin (Lipitor) 40 MG tablet, Take 1 tablet (40 mg) by mouth in the evening, Disp: 90 tablet, Rfl: 0 B-D UF III MINI PEN NEEDLES 31G X 5 MM [facility], , Disp: , Rfl: chlorhexidine (Peridex) 0.12 % solution, , Disp: , Rfl: etodolac (Lodine) 400 MG tablet, Take 400 mg by mouth 2 (two) times a day as needed, Disp: , Rfl: fexofenadine (Deb) 180 MG tablet, Take 1 tablet (180 mg) by mouth Daily, Disp: 90 tablet, Rfl: 1 furosemide (Lasix) 20 MG tablet, Take 1 tablet (20 mg) by mouth every other day, Disp: 45 tablet, Rfl: 1 gabapentin (Neurontin) 300 MG capsule, Take 1 capsule (300 mg) by mouth in the morning and 1 capsule (300 mg) in the evening and 1 capsule (300 mg) before bedtime., Disp: 270 capsule, Rfl: 1 glyBURIDE (Diabeta) 5 MG tablet, 2 pills in the am, and 1 pill in the pm, Disp: 270 tablet, Rfl: 1 HYDROcodone-acetaminophen ([place]ord) 5-325 MG tablet, Take 1 tablet by mouth every 6 (six) hours if needed, Disp: , Rfl: ibuprofen 600 MG tablet, , Disp: , Rfl: insulin lispro protamine-insulin lispro (HumaLOG MIX 75/25 KWIKPEN) (75-25) 100 UNIT/ML injection, INJECT 53 UNITS SUBCUTANEOUSLY ONCE DAILY, Disp: 18 each, Rfl: 1 lamoTRIgine (LaMICtal) 100 MG tablet, Take 1 tablet by mouth at bedtime, Disp: , Rfl: lamoTRIgine (LaMICtal) 150 MG tablet, Take 2 tablets by mouth Daily, Disp: , Rfl: Latuda 20 MG tablet, , Disp: , Rfl: Latuda 80 MG tablet, , Disp: , Rfl: losartan (Cozaar) 50 MG tablet, Take 1 tablet (50 mg) by mouth in the morning., Disp: 90 tablet, Rfl: 1 metFORMIN (Glucophage) 1000 MG tablet, Take 1 tablet (1,000 mg) by mouth in the morning and 1 tablet (1,000 mg) in the evening. Take with meals., Disp: 180 tablet, Rfl: 1 pioglitazone (Actos) 30 MG tablet, Take 1 tablet (30 mg) by mouth in the morning., Disp: 90 tablet,Rfl: 1 Semaglutide,0.25 or 0.5MG/DOS, (Ozempic, 0.25 or 0.5 MG/DOSE,) 2 MG/3ML solution pen-injector, 0.5 mg by Other route every 7 (seven) days for 28 days, Disp: 3 mL, Rfl: 2 sertraline (Zoloft) 100 MG tablet, Take 100 mg by mouth at bedtime, Disp: , Rfl: tiZANidine (Zanaflex) 4 MG tablet, TAKE 1 TABLET BY MOUTH AT BEDTIME NEEDED FOR MUSCLE SPASMS, Disp: 90 tablet, Rfl: 0 Allergies Penicillins and Tetanus toxoid-containing vaccines Past Surgical History Past Surgical History: Procedure Laterality Date ADENOIDECTOMY APPENDECTOMY CARPAL TUNNEL RELEASE 7 surgeries CATARACT EXTRACTION CHOLECYSTECTOMY COLONOSCOPY COLONOSCOPY 08/02/2017 Normal FEMUR SURGERY Right HC OR CATARACT REMOVAL KNEE SURGERY Right 1974 BONE IMPLANT / 1975 HARDWARE REMOVAL / 2017 KNEE SCOPE TONSILLECTOMY TOTAL HIP ARTHROPLASTY Right 11/08/2023 DR SHERIDAN Family History Family History Problem Relation Name Age of Onset Cancer Mother Uterine cancer Lupus Mother Mental illness Father Mental illness Sister Mental illness Brother Brother Schizophrenic Objective Physical Exam Constitutional: General: He is not in acute distress. Appearance: He is obese. Comments: Presents to clinic ambulating unassisted in [facility]. Cardiovascular: Comments: DP pulse: 1/4 PT pulse: 1/4 Skin temperature is warm to cool Edema: Moderate nonpitting worse on the left lower extremity Pulmonary: Effort: Pulmonary effort is normal. No respiratory distress. Musculoskeletal: Cervical back: Neck supple. No rigidity. Comments: Pedal deformities: Multiple hammertoe contractures bilaterally. Ankle dorsiflexion 0 degrees with the knee extended, flexed bilaterally. Charcot deformity left lower extremity with rocker bottom deformity. Skin: Capillary Refill: Capillary refill takes less than 2 seconds. Comments: 10 toenails exhibit clinical mycosis with yellow/brown discoloration, crumbly texture andsubungual debris. Hyperkeratotic tissue: Left foot: Diffuse plantar cuboid Right foot: Diffuse plantar heel Skin is slightly thinned Hair growth: Absent Bilateral feet are visibly soiled on the plantar aspect. Neurological: Mental Status: He is alert. Comments: Protective sensation intact at 0/10 left foot, 3/10 right foot pedal sites Vibratory sensation absent at the 1st MTP bilaterally. Psychiatric: Mood and Affect: Mood normal. Behavior: Behavior normal. Assessment/Plan ICD-10-CM 1. Type II diabetes mellitus with neurological manifestations (HCC) E11.49 2. Charcot's joint of left foot M14.672 Patient examined and evaluated. It sounds like the shoes are working well for him. His only issue is with the forefoot of the left shoe. I did place the shoe will on a stretcher for 10 minutes and henoted improvement. We will follow up with him as needed. This note was created with the assistance of a speech recognition program. While intending to generate a timely document that accurately reflects the content of the visit, no guarantee can be provided that every grammatical or spelling mistake has been or will be identified or corrected. Thank you for your understanding. Kai Lawrence DPM documented in this encounter Plan of Treatment DateTypeDepartmentCare Team (Latest Contact Info)Cauiqcvyhws65/26/2026 2:15 PM ESTProcedure Visit [facility] [address] [place] [address] Yesi Coleman DPM [address] [place] [address] 01/18/2027 1:00 PM ESTOffice Visit [facility] [address] [place] [address] Romeo Burt, PA [address] [place] [address] documented as of this encounter Visit Diagnoses Diagnosis Type II diabetes mellitus with neurological manifestations (HCC)- Primary Type II or unspecified type diabetes mellitus with neurological manifestations, not stated as uncontrolled Charcot's joint of left foot documented in this encounter Additional Health Concerns AssessmentNoted TimePHQ-9 Depression Total Score: 1:00 PM ESTA fall risk assessment has been completed for the brpughq9805/03/2024 8:54 AM EDT documented as of this encounter Care Teams Team MemberRelationshipSpecialtyStart DateEnd Date Idalmis Adam NP [address] [place] [address] PCP - Donny BENNETT09/13/23 Umesh Aquino MD [address] [place] [address] PCP - GeneralFamily Medicine07/01/25documented as of this encounter
--- OUTSIDE RECORDS SUMMARY | 2025-10-14 08:17 | XMS_ITS | Encounter Summary ---
Author Organization [facility] Address [address] [place] [address] Care Team Providers Care Certified Physician'S Assistant Name Role Phone EmyarielbrendaIdalmis worley DEVON Unavailable [phone] Umesh Aquino MD Primary Care Provider Encounter Details DateTypeDepartmentCare Team (Latest Contact Info)Etatwajxdgs81/25/2025amboo flowsheet [facility] [address] [place] [address] Kai Lawrence DPGold [address] [place] [address] Social History Tobacco UseTypesPacks/DayYears UsedDateSmoking Tobacco: FormerCigarettesQuit: [...] relatives?Once a week11/02/2023How often do you attend denominational or islam services?Never11/02/2023o you belong to any clubs or organizations such as denominational groups, unions, fraIn[employer]ance [employer] or athletic groups, or school groups?No11/02/2023How often do you attend meetings of the clubs or organizations you belong to?Never11/02/2023re you , , , , never , or living with a partner?Never klezwlu2511/02/2023 AUDIT-CAnswerDate RecordedQ1: How often do you have [...] medical care, and heating?Not hard at all 11/02/2023[facility] [place] of Occupational Health - Occupational Stress QuestionnaireAnswerDate [...] steady place to sleep or slept in ashelter (including now)?No11/02/2023Sex and Gender InformationValueDate RecordedSex Assigned at BirthNot on fileLegal SexMale 01/25/2023 8:21 PM EDTGender IdentityNot on fileSexual OrientationNot on file documented as of this encounter Plan of Treatment DateTypeDepartmentCare Team (Latest Contact Info)Aqujblotfie47/26/2026 2:15 PM ESTProcedure Visit [facility] [address] [place] [address] Yesi Coleman DPM [address] [place] [address] 01/18/2027 1:00 PM ESTOffice Visit [facility] [address] [place] [address] Romeo Burt, RANJIT [address] [place] [address] documented as of this encounter Visit Diagnoses Not on filedocumented in this encounter Additional Health Concerns AssessmentNoted TimePHQ-9 Depression Total Score: 1:00 PM ESTA fall risk assessment has been completed for the yxhkxpr9105/03/2024 8:54 AM EDT documented as of this encounter Care Teams Team MemberRelationshipSpecialtyStart DateEnd Date Idalmis Adam NP [address] [place] [address] PCP - Donny BENNETT09/13/23 Umesh Aquino MD [address] [place] [address] PCP - GeneralFamily Medicine07/01/25documented as of this encounter
--- OUTSIDE RECORDS SUMMARY | 2025-10-14 08:17 | XMS_ITS | Encounter Summary ---
Author Organization [facility] Address [address] [place] [address] Care Team Providers Care Safety Sealer Name Role Phone EmyarielbrendaIdalmis worley DEVON Unavailable [phone] Umesh Aquino MD Primary Care Provider [phone] Encounter Details DateTypeDepartmentCare Team (Latest Contact Info)Fmwrycyamdg54/25/2025bstract [facility] [address] [place] [address] Kai Lawrence, DPGold [address] [place] [address] Social History Tobacco UseTypesPacks/DayYears UsedDateSmoking [...] relatives?Once a week11/02/2023How often do you attend evangelical or oriental orthodox services?Never11/02/2023o you belong to any clubs or organizations such as evangelical groups, unions, fraSimple [employer] or athletic groups, or school groups?No11/02/2023How often do you attend meetings of the clubs or organizations you belong to?Never11/02/2023re you , , , , never , or living with a partner?Never eydcuym0111/02/2023 AUDIT-CAnswerDate RecordedQ1: How often do you have [...] medical care, and heating?Not hard at all 11/02/2023[facility] [place] of Occupational Health - Occupational Stress QuestionnaireAnswerDate [...] Plan of Treatment DateTypeDepartmentCare Team (Latest Contact Info)Zkrtvucljhj03/26/2026 2:15 PM ESTProcedure Visit [facility] [address] [place] [address] Yesi Coleman DPM [address] [place] [address] 01/18/2027 1:00 PM ESTOffice Visit [facility] [address] [place] [address] Romeo Burt, RANJIT [address] [place] [address] documented as of this encounter Visit Diagnoses Not on filedocumented in this encounter Additional Health Concerns AssessmentNoted TimePHQ-9 Depression Total Score: 1:00 PM ESTA fall risk assessment has been completed for the zwtqpmj6005/03/2024 8:54 AM EDT documented as of this encounter Care Teams Team MemberRelationshipSpecialtyStart DateEnd Date Idalmis Adam NP [address] [place] [address] PCP - Donny BENNETT09/13/23 Umesh Aquino MD [address] [place] [address] PCP - GeneralFamily Medicine07/01/25documented as of this encounter
--- OUTSIDE RECORDS SUMMARY | 2025-10-14 08:17 | XMS_ITS | Encounter Summary ---
Author Organization [facility] Address [address] [place] [address] Care Team Providers Care Wired Sweatband Cutter Name Role Phone Kia Idalmis OSORIO Unavailable [phone] Umesh Aquino MD Primary Care Provider [phone] Encounter Details DateTypeDepartmentCare Team (Latest Contact Info)Xrrtqrqljsu04/25/2025Travel Social History Tobacco UseTypesPacks/DayYears UsedDateSmoking Tobacco: FormerCigarettesQuit: [...] phone with family, friends, or neighbors?Twice a week12/21/2023How often do you get together with friends or relatives?Once a week11/02/2023How often do you attend synagogue or gnosticism services?Never11/02/2023o you belong to any clubs or organizations such as synagogue groups, unions, fraternal or athletic groups, or school groups?No11/02/2023How often do you attend meetings of the clubs or organizations you belong to?Never11/02/2023re you , , , , never , or living with a partner?Never dcljgcq1111/02/2023 AUDIT-CAnswerDate RecordedQ1: How often do you have [...] medical care, and heating?Not hard at all 11/02/2023[facility] [place] of Occupational Health - Occupational Stress QuestionnaireAnswerDate [...] Plan of Treatment DateTypeDepartmentCare Team (Latest Contact Info)Ruewsdzgbkg86/26/2026 2:15 PM ESTProcedure Visit [facility] [address] [place] [address] Yesi Coleman DPM [address] [place] [address] 01/18/2027 1:00 PM ESTOffice Visit [facility] [address] [place] [address] Romeo Burt, PA [address] [place] [address] documented as of this encounter Visit Diagnoses Not on filedocumented in this encounter Additional Health Concerns AssessmentNoted TimePHQ-9 Depression Total Score: 1:00 PM ESTA fall risk assessment has been completed for the iigzsya7405/03/2024 8:54 AM EDT documented as of this encounter Care Teams Team MemberRelationshipSpecialtyStart DateEnd Date Idalmis Adam NP [address] [place] [address] PCP - Donny BENNETT09/13/23 Umesh Aquino MD [address] [place] [address] PCP - GeneralFanvly [facility]07/01/25documented as of this encounter
--- OUTSIDE RECORDS SUMMARY | 2025-10-14 08:17 | XMS_ITS | Clinical Summary ---
Author Organization [facility] Address [address] [place] [address] Care Team Providers Care String Cutter Name Role Phone EmyIdalmis gibson YARN CARRIER Unavailable [phone] Umesh Aquino MD Primary Care Provider [phone] Allergies Active AllergyReactionsCriticalityNoted DateCommentsPenicillinsHives,Swelling 09/01/2023Tetanus Toxoid-Containing VaccinesHives,Lkqqujhp04/20/2023 Medications MedicationSigDispense QuantityRefillsLast FilledStart DateEnd DateStatus lamoTRIgine (LaMICtal) 150 MG tablet Take 2 tablets by mouth Daily08/14/2023ctive Latuda 20 MG tablet 08/14/2023ctive Latuda 80 MG tablet 08/14/2023ctive B-D UF III MINI PEN NEEDLES 31G X 5 MM misc 02/26/2024ctive tiZANidine (Zanaflex) 4 MG tablet Indications:Cervical pain (neck)TAKE 1 TABLET BY MOUTH AT BEDTIME NEEDED FOR MUSCLE SPASMS 90 tablet 04/01/2024ctive sertraline (Zoloft) 100 MG tablet Take 100 mg by mouth at jokbscg7703/26/2024ctive fexofenadine (Deb) 180 MG tablet Indications:Environmental and seasonal allergiesTake 1 tablet (180 mg) by mouth Daily 90 tablet ctive Semaglutide,0.25 or 0.5MG/DOS, (Ozempic, 0.25 or 0.5 MG/DOSE,) 2 MG/3ML solution pen-injector Indications:Type 2 diabetes mellitus with insulin therapy (HCC)0.5 mg by Other route every 7 (seven) days for 28 days 3 mL ctive insulin lispro protamine-insulin lispro (HumaLOG MIX 75/25 KWIKPEN) (75-25) 100 UNIT/ML injection Indications:Type 2 diabetes mellitus with insulin therapy (HCC)INJECT 53 UNITS SUBCUTANEOUSLY ONCE DAILY 18 each ctive chlorhexidine (Peridex) 0.12 % solution 07/18/2024ctive etodolac (Lodine) 400 MG tablet Take 400 mg by mouth 2 (two) times a day as jaudto1907/18/2024ctive HYDROcodone-acetaminophen ([place]) 5-325 MG tablet Take 1 tablet by mouth every 6 (six) hours if wnjwfe1707/12/2024ctive ibuprofen 600 MG tablet 07/17/2024ctive atorvastatin (Lipitor) 40 MG tablet Indications:Type 2 diabetes mellitus with peripheral neuropathy (HCC)Take 1 tablet (40 mg) by mouth in the evening 90 tablet 07/24/2024ctive furosemide (Lasix) 20 MG tablet Indications:Bilateral lower extremity edemaTake 1 tablet (20 mg) by mouth every other day 45 tablet ctive gabapentin (Neurontin) 300 MG capsule Indications:Type 2 diabetes mellitus with peripheral neuropathy (HCC)Take 1 capsule (300 mg) by mouth in the morning and 1 capsule (300 mg) in the evening and 1 capsule(300 mg) before bedtime. 270 capsule ctive glyBURIDE (Diabeta) 5 MG tablet Indications:Type 2 diabetes mellitus with insulin therapy (HCC)2 pills in the am, and 1 pill in the pm 270 tablet ctive pioglitazone (Actos) 30 MG tablet Indications:Type 2 diabetes mellitus with peripheral neuropathy (HCC)Take 1 tablet (30 mg) by mouth in the morning. 90 tablet ctive losartan (Cozaar) 50 MG tablet Indications:Type 2 diabetes mellitus with insulin therapy (HCC),Primary hypertensionTake 1 tablet (50 mg) by mouth in the morning. 90 tablet ctive metFORMIN (Glucophage) 1000 MG tablet Indications:Type 2 diabetes mellitus with peripheral neuropathy (HCC)Take 1 tablet (1,000 mg) by mouth in the morning and 1 tablet (1,000 mg) in the evening. Take with meals. 180 tablet ctive lamoTRIgine (LaMICtal) 100 MG tablet Take 1 tablet by mouth at hpnklsa8308/06/2024ctive Active Problems ProblemNoted DateDiagnosed IgsdIiyyhlxta82/11/2024 Assessment & Plan (07/24/2024 5:50 PM EDT): Trial dandruff shampoo to affected area of forehead Proliferative diabetic retinopathy of both eyes associated with type 2 diabetes eoyxxulc12/01/2024 Assessment & Plan (07/24/2024 2:21 PM EDT): Has eye appt scheduled Body mass index (BMI) 40.0-44.9, adult06/12/2024Weakness tgwzlpnapjl07/05/2024 Other chronic pain04/17/2024iabetic polyneuropathy associated with diabetes mellitus due to underlying nvcmieiyu21/19/2024 Assessment & Plan (06/12/2024 5:43 PM EDT): Unclear if his weakness in legs is related to lumbar radiculopathy or possibly diabetic neuropathy,we will reach out to neuro regarding this and see about getting an EMG His weakness is causing falls as well Multiple falls03/01/2024Lumbar pain03/01/20242052Xmspparrdvq04/19/2024 Overview (06/05/2024): Patient has paresthesias in the bilateral lower extremities, likely caused by his diabetes.ite possibly related to his diabetes. 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 He is diabetic which is likely causative for his symptoms. Vibratory sensation is diminished distally on clinical exam. PLAN: - Currently on gabapentin by another provider Dfamgcba77/19/2024 Overview (06/05/2024): Lumbar paraspinals are TTP bilaterally. The patient does take tizanidine at night which he reports is somewhat beneficial. PLAN: - Consider triggers in the future, this is deferred by the patient today Facet arthropathy, kchfqp9803/01/2024Environmental and seasonal allergies 02/27/2024Type 2 diabetes mellitus with insulin xcznvir4401/15/2024 Assessment & Plan (07/24/2024 2:23 PM EDT): [...] hypoglycemia symptoms No insulin dose changes HLD (hyperlipidemia)12/28/2023hronic kidney disease (CKD), stage III (moderate) 12/25/2023 Assessment & Plan (06/12/2024 5:39 PM EDT): Discussed causes, treatments etc Will refer to nephrology Assessment & Plan (04/17/2024 1:53 PM EDT): Check labs Lumbar back pain with radiculopathy affecting left lower nkfevcrmh09/12/2024 Cervical pain (neck)12/25/2023ilateral lower extremity edema11/16/2023Morbid (severe) obesity due to excess uxfuaqle13/21/2023Encounter for subsequent annual wellness visit (AWV) in Medicare unjqbsc1111/02/2023 Assessment & Plan (11/02/2023 2:36 PM EST): .I have reviewed Ht/Wt/BMI, I have reviewed recommended vaccines for patient's age, as well as all recommended screenings I have reviewed available care everywhere notes as well. I have recommended eating a balanced diet,as well as activity as chronic conditions allow It is recommended that the patient have a yearly eye exam, as well as twice a year dental exams Fu in this office for wellness on a yearly basis Primary hezeclarudoc25/11/2023 Assessment & Plan (06/12/2024 5:39 PM EDT): [...] of EKG ECHO 2018 was normal Vitamin xflnhilesq79/11/2023Vitamin B12 iprghslvud98/11/2023Varus foot deformity, acquired, left10/23/2023Type 2 diabetes mellitus with Charcot's joint of left foot10/23/2023 Overview (06/05/2024): Important comorbid condition as it pertains to neuropathy. Recommended tight glucose control. Tremor of right hand10/23/2023Tinea qvbqqy7212/24/2022TIA (transient ischemic attack)10/23/2023Spondylosis, sxkikyko46/11/2023lantar fasciitis, bilateral 10/23/2023Osteoarthritis of hip10/23/2023Obstructive sleep apnea, adult 10/23/2023 Assessment & Plan (10/23/2023 10:16 AM EST): Not compliant with use of this It has been discussed w pt at prior appts the importance of needing to wear this Careful observation in recovery period of this Type 2 diabetes mellitus with peripheral uvydddrmuk31/29/2023 Assessment & Plan (04/17/2024 1:52 PM EDT): No worsening in symptoms per pt, however unsure if generalized weakness in legs is related to this Assessment & Plan (10/23/2023 10:15 AM EST): A1c is less than 7% which is trending down for him Continue current meds at current doses Freq foot check, eye exam yearly Fu in 3 months Resolved Problems ProblemNoted DateDiagnosed DateResolved DateType 2 diabetes mellitus with diabetic neuropathy, ferfhqapwdv04pnea, sleep02/28/2024 07/24/2024Lower extremity edemaEncounter for initial annual wellness visit (AWV) in Medicare ydtuign67 Assessment & Plan (11/02/2023 2:35 PM EST): .I have reviewed Ht/Wt/BMI, I have reviewed recommended vaccines for patient's age, as well as all recommended screenings I have reviewed available care everywhere notes as well. I have recommended eating a balanced diet,as well as activity as chronic conditions allow It is recommended that the patient have a yearly eye exam, as well as twice a year dental exams Fu in this office for wellness on a yearly basis Swelling of left foot/hest skin ernzfd99/09/2024 Jwatfgwcl11/re-operative edodzcrud82 Assessment & Plan (10/25/2023 7:34 AM EST): [...] home Cleared for surgery Obesity (BMI 30-39.9) Encounters DateTypeDepartmentCare AbjnHinrtyznhdu30/25/2025 1:15 PM ESTOffice Visit [facility] [address] [place] [phone] Kai Lawrence DPM 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); Charcot's joint of left foot10/07/2025bstract [facility] [address] [place] [address] Kai Lawrence DPM 10/07/2025amboo flowsheet [facility] [address] [place] [address] Kai Lawrence DPM 10/07/20259744Bfqnrs63/27/2025 1:15 PM EDTOffice Visit [facility] [address] [place] [address] Romeo Burt PA Right hip pain (Primary Dx); History of total hip replacement, right09/08/20256331Vzlevc06/22/2025 1:15 PM EDT Procedure Visit [facility] [address] [place] [address] Yesi Coleman DPM Onychomycosis (Primary Dx); Neuropathy; Type II diabetes mellitus with neurological manifestations (HCC); Corns and callosities; Charcot's joint of left foot; Pain in both feet09/03/2025 11:15 AM EDTOffice Visit [facility] [address] [place] [address] Kai Lawrence DPM 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); Corns and callosities; Hammer toes of both feet; Charcot's joint of left foot; Equinus contracture of right ankle; Equinus contracture of left ankle09/03/2025amboo flowsheet [facility] [address] [place] [address] Kai Lawrence, VOLODYMYR 09/03/20258966Bzglnj76/15/2025bstract [facility] [address] [place] [address] Kai Lawrence DPM 07/30/2025 1:45 PM EDTOffice Visit [facility] [address] [place] [phone] Kai Lawrence, DPM 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); Corns and callosities; Hammer toes of both feet; Charcot's joint of left foot; Equinus contracture of right ankle; Hammer toe of right foot; Equinus contracture of left ankle07/30/2025amb flowsheet [facility] [address] [place] [address] Kai Lawrence DPM 07/30/20253235Upnzws32/16/3688Yayprn53/08/2025 2:45 PM EDTAncillary Procedure [facility] [address] [place] [address] 07/21/2025 2:30 PM EDTOffice Visit [facility] [address] [place] [address] Romeo Burt PA Right hip pain (Primary Dx); History of total hip replacement, right07/21/2025amboo flowsheet [facility] [address] [place] [address] Romeo Burt PA 07/21/2025Travelfrom Last 3 Months Immunizations ImmunizationAdministration DatesNext DueInfluenza, High Dose Seasonal, Preservative Free08/11/2024Influenza, Injectable, MDCK, preservative free 01/02/2017Influenza, Seasonal, Quadrivalent, Yetkpjxltj44/19/2023Influenza, injectable, MDCK, preservative free, aquxgnnccvhk63/20/2022,10/04/2021, 08/24/2019Influenza, injectable, quadrivalent, preservative free08/10/2017Novel ukpuuxwbb-B6P6-30, preservative-free10/14/2009 Family History Medical HistoryRelationNameCommentsMental illnessBrotherBrother Schizophrenic Mental illnessFatherCancerMotherUterine cancerLupusMotherMental illnessSister RelationNameStatusCommentsBrotherFatherDeceasedMotherSister Social History Tobacco UseTypesPacks/DayYears UsedDateSmoking Tobacco: FormerCigarettesQuit: 1990Smokeless Tobacco: Never Tobacco Cessation:Counseling Given: Not Answered Comments:Quit smoking >10 years ago. 20-30 cigarettes/day Alcohol UseStandard Drinks/WeekCommentsNever0 (1 [...] relatives?Once a week11/02/2023How often do you attend faith or christianity services?Never11/02/2023o you belong to any clubs or organizations such as faith groups, unions, fraternal or athletic groups, or school groups?No11/02/2023How often do you attend meetings of the clubs or organizations you belong to?Never11/02/2023re you , , , , never , or living with a partner?Never dolzzaw7911/02/2023 AUDIT-CAnswerDate RecordedQ1: How often do you have [...] medical care, and heating?Not hard at all 11/02/2023[facility] [place] [facility] Occupational Health - Occupational Stress QuestionnaireAnswerDate [...] EDTGender IdentityNot on fileSexual OrientationNot on file Last Filed Vital Signs Vital SignReadingTime TakenCommentsBlood Ozcsfudt314/6204/11/2024 12:16 PM EDT Befod9493 12:16 PM HVKXfaipcqvgtd66.6 ??C (97.8 ??F)09/04/2024 3:01 PM EDTRespiratory Kenp5107 1:13 PM EDTOxygen Qeenkgethf12%02/11/2025 12:16 PM EDTInhaled Oxygen Concentration--Nmpzdv858 kg (258 lb)10/07/2025 1:12 PM EST Mvoiys765.3 cm (5' 9 )10/07/2025 1:12 PM ESTBody Mass Index38. 1:12 PM EST Plan of Treatment DateTypeDepartmentCare Team (Latest Contact Info)Txnvkyouyrj53/26/2026 2:15 PM ESTProcedure Visit [facility] [address] [place] [address] Yesi Coleman DPM [address] [place] [address] 01/18/2027 1:00 PM ESTOffice Visit [facility] [address] [place] [address] Romeo Burt, PA [address] [place] [address] Health MaintenanceDue DateLast DoneCommentsCT Uljvtdjeyfae1958FIT-DNA 1958FIT1958FOBT1958 0855Ihnwmmbzccerq1958Pneumococcal Vaccine: 65+ Years (1 of 2 - PCV)1977Diabetes: Hemoglobin A1C12/04/2024 09/03/2024, 05/27/2024, 02/28/2024, Additional history existsDiabetes: Retinopathy Expyvfeep28/03/933572/01/2024, 08/20/2021OVID-19 Vaccine ( - season)/, 08/31/2023, 02/18/2022, Additional history existsInfluenza Vaccine (#1)/, 08/31/2023, 08/02/2022, Additional history existsMedicare Annual Wellness (AWV), 11/02/2023, 3Diabetes: Urine Protein Bxaikwpeu87, 02/28/2024, 0748Ruinhiwufdb25/20/202709/Colorectal Cancer Screening 08/02/2027 Procedures Procedure NamePriorityDate/TimeAssociated DiagnosisCommentsXR HIP 2 OR 3 VW VMHFXHyipeyl86/08/2025 2:40 PM EDT Right hip pain COLOR FUNDUS PHOTOGRAPHY - OU - BOTH OHURPjnouwi98/03/2024 12:43 PM EDT Type 2 diabetes mellitus with peripheral neuropathy (HCC) HEMOGLOBIN D0EUsqxdrb43/20/2018 12:00 PM EDT from Last 3 Months or Most Recently Relevant to Health Maintenance Results * XR hip right 2 or 3 views (07/21/2025 2:40 PM EDT)Anatomical RegionLaterality ModalityLower Extremities, HipRightRadiographic ImagingSpecimen (Source) Anatomical Location / LateralityCollection Method / VolumeCollection Time Received Time Narrative 07/21/2025 3:16 PM EDT Imaging Result: AP and Lateral Right hip: AP and lateral of right hip showed acceptable position and alignment of right total hip arthroplasty. There was no evidence of loosening of the acetabular cup or femoral stem. Small avulsion vs heterotrophic ossification greater troch unchanged from prior. Femoral head was well centered in the acetabular liner without evidence of asymmetric or accelerated wear. There was no gross evidence of fracture and/or dislocation. Impression: Unremarkable right total hip arthroplasty. Authorizing ProviderResult TypeResult StatusRomeo Burt PAIMG XR PROCEDURES Final Result * (ABNORMAL) Color Fundus Photography - OU - Both Eyes (05/15/2024 12:43 PM EDT) Anatomical RegionLateralityModalityHeadFundus Photography Impressions 05/15/2024 12:43 PM EDT Refer to an upholstered goods crafter for evaluation of active or previously treated proliferative diabetic retinopathy. Narrative 05/15/2024 12:43 PM EDT Refer to an upholstered goods crafter for evaluation of active or previously treated proliferative diabetic retinopathy. Authorizing ProviderResult TypeResult StatusIdalmis Adam NPOPHTH PHOTOGRAPHY Final Result * Hemoglobin A1c (07/02/2018 12:00 PM EDT)ComponentValueRef RangeTest Method Analysis TimePerformed AtPathologist SignatureGENERIC LEGACY COMPONENT PUSQNMIB21.6ECW NONXML LABSSpecimen (Source)Anatomical Location / Laterality Collection Method / VolumeCollection TimeReceived Time07/02/2018 12:00 PM EDT Narrative Authorizing ProviderResult TypeResult StatusMarj MCGRATH BLOOD ORDERABLESFinal ResultPerforming OrganizationAddressCity/State/ZIP CodePhone Number [facility] NONXML LABS from Last 3 Months or Most Recently Relevant to Health Maintenance Insurance Care Teams Team MemberRelationshipSpecialtyStart DateEnd Date Idalmis Adam NP [address] [place] [address] PCP - Donny BENNETT09/13/23 Umesh Aquino MD [address] [place] [address] PCP - Generalmily Medicine07/01/25
[2025-10-14 08:46] LABS: Hematocrit 29.3 % (42.0-54.0); Hemoglobin 9.5 g/dL (14.0-18.0); Immature Granulocytes Abs Auto 0.02 10^3/uL (0.00-0.03); Immature Granulocytes Pct Auto 0.3 % (0.0-0.5); Lymphocytes Absolute Auto 1.4 10^3/uL (1.2-3.8); Mean Corpuscular HGB Conc 32.4 g/dL (29.9-35.2); Mean Corpuscular Hemoglobin 33.3 pg (25.9-34.0); Mean Corpuscular Volume 102.8 fL (80.0-94.0); Platelet Count 249 10^3/uL (150-450); Red Blood Count 2.85 10^6/uL (4.70-6.10); White Blood Count 5.9 10^3/uL (4.0-11.0)
[2025-10-14 09:09] LABS: Microalbum Creatinine Ratio Ur 7.7 mg/g (0.0-29.9)
[2025-10-14 10:21] LABS: Alanine Aminotransferase 26 U/L (16-63); Albumin Globulin Ratio 1.0; Albumin Level 3.4 g/dL (3.4-5.0); Alkaline Phosphatase 114 U/L (46-116); Anion Gap 10.6; Aspartate Amino Transferase 19 U/L (15-37); Blood Urea Nitrogen 27.0 mg/dL (7.0-18.0); Calcium 8.6 mg/dL (8.5-10.1); Carbon Dioxide 28.0 mmol/L (21.0-32.0); Chloride 108 mmol/L (98-107); Cholesterol 118 mg/dL (<=200); Estimated GFR (African America 54 (>=60 mL/min/1.73m^2); Estimated GFR (Non-African Ame 45 (>=60 mL/min/1.73m^2); Globulin 3.3 g/dL; Glucose 116 mg/dL (74-106); HDL Cholesterol 43 mg/dL (40-60); Potassium 4.6 mmol/L (3.5-5.1); Sodium 142 mmol/L (136-145); Total Protein 6.7 g/dL (6.4-8.2); Triglycerides 62 mg/dL (<=150); VLDL CHOLESTEROL 12.4 mg/dL
== END 2025-10-14 08:11 | disposition home or self-care (01) ==
LOC: LAB 08:13
PROVIDERS: Visit Provider Nurse Practitioner Family
DX: E11.22 Type 2 diabetes mellitus with diabetic chronic kidney disease (principal); Z12.5 Encounter for screening for malignant neoplasm of prostate; E78.5 Hyperlipidemia, unspecified; I10 Essential (primary) hypertension
CPT/HCPCS: 36415; 80053; 80061; 82043; 82570; 83036; 85025; G0103

== ENCOUNTER 2025-10-20 09:03 | Outpatient (OUT) | payer MEDICARE, SELFPAY ==
--- OUTSIDE RECORDS SUMMARY | 2025-10-16 19:27 | XMS_ITS | Continuity of Care Document ---
Author Organization [facility] Address [address] [place] [address] Phone Care Team Providers Care Kettle Coordinator Name Role Phone Landen Hanley DO Attending Provider [phone] Umesh Aquino MD Primary Care Provider Lluvia Woodward SLOT MACHINE REPAIRER-ASSOCIATE SOFTWARE ENGINEER-C Attending Provider + Gagan Meyers DO Attending Provider NON STAFF Primary Care Provider Charlie Bridges MD Attending Provider Landen Hanley DO Other Provider NO FAMILY, PHYSICIAN Primary Care Provider Unava ilElia Ma MD Attending Provider [phone] Care Teams Patient Care Team Team Status: Active Member Role/Relationship Status Dates PHYSICIAN NO FAMILY Primary Care Provider Active Visit Care Team Team Status: Inactive Member Role/Relationship Status Dates Landen Hanley DO Attending Provider Active S tart: July 23, 2025 End: July 23, 2025SaMaira Padgett Care ProviderActiveStart: July 23, 2025 End: July [...] Start: July 24, 2025 End: July 24, 2025Lluvia Woodward , YIWT-HEU-SQswrcgoja ProviderActive Start: July 24, 2025 End: July [...] Start: September 12, 2025 End: September 12, 2025JuCorona Emery ProviderActiveStart: September 12, 2025 End: September 12, 2025 Visit Care Team Team Status: Inactive Member Role/Relationship Status Dates NON STAFF Primary Care Provider Active Start: September 12, 2025 End: September 12, 2025JuCorona Emery ProviderActiveStart: September 12, 2025 End: September 12, 2025 Visit Care Team Team Status: Inactive Member Role/Relationship Status Dates NON STAFF Primary Care Provider Active Start: September 12, 2025 End: September 12, 2025JuCorona Emery ProviderActiveStart: September 12, 2025 End: September 12, 2025 Visit Care Team Team Status: Active Member Role/Relationship Status Dates NON STAFF Primary Care Provider Active Start: September 19, 2025 Lise Ivey ProviderActiveStart: September 19, 2025 Visit Care Team Team Status: Active Member Role/Relationship Status Dates NON STAFF Primary Care Provider Active Start: September 23, 2025 Corona Soto ProviderActiveStart: September 23, 2025 Rodríguez Soto ProviderActiveStart: September 23, 2025 Visit Care Team Team Status: Inactive Member Role/Relationship Status Dates NON STAFF Primary Care Provider Active Start: October 03, 2025 End: October 03, 2025JuCorona Emery ProviderActiveStart: October 03, 2025 End: October 03, 2025 Patient Care Team Team Status: Inactive Member Role/Relationship Status Dates PHYSICIAN NO FAMILY Primary Care Provider Active Start: October 16, 2025 End: October 16Lise Valverde ProviderActiveStart: October 16, 2025 End: October 16, 2025 Chief Complaint and Reason for Visit [...] WEEKS POST OP October 03, 2025 8:21am E64.9 E11.21 I12.9 N18.2 October 16, 025 8:29am Reason for Visit Admit Date Fracture of [...] 10:25amQuestionAnswerDate RecordedHas the SDOH screening changed since admission?[facility] 2024 10:25am Assessment Value Date Recorded SDOH Follow up September 24, 2025 10:24amQuestionAnswerDate RecordedHas the SDOH screening changed since admission?[facility] 2024 10:24am Family History Relationship Condition Age [...] Dx: S42.A left humerus fractureOxycodone 5 mg dujcbyKxfplylfiwqh3KTWWFWBEK 4- 6 HOURS as needed for lojt6280Pmfxgy 2024October 2024 12:28pm Fracture of proximal end of left humerusdispense #30 (thirty) Dx: S42.A left humerus fractureLosartan 25 mg tabletDiscontinued0.ROUTE .MMVRQSD757Dfypislbj 4th, 2025 12:11pmOctober 2024 1:23pmTAKE 1 TABLET BY MOUTH EVERY DAYTramadol 50 mg gsrvunUuviiqzlkpuo67JEOJN6I1540Rlomwpfdb 19th, 2025 7:51amOctober 2024 1:37pmFracture of proximal end of left humerusleft humerus fracture S4 dispense 42 (forty-two) tabletsTramadol 50 mg zhvaojBkoqrckamaew25UPFLP0H5578 August 27, 2025 1:37pmOctober 2024 9:46amFracture of proximal end of left humerusleft humerus fracture S4 dispense 42 (forty-two) tabletsNaproxen 500 mg tabletActive0.ROUTE.QKXZOPP724 September 22, 2025 7:27amTAKE 1 TABLET BY MOUTH TWICE A DAYUnknownTramadol 50 mg rqvoinJgoiomnpndey47JFPUW1W as needed for painOctober 2024 11:00pm October 03, 2025 8:41amleft humerus fracture S42.202A dispense 42 (forty-two) tabletsLosartan 25 mg efsexsBvktmj70ZTEJJsvqvcyMqygqsx 2024 11:00pmUnknownOxycodone 5 mg sqczikWmxjpc5GZRGI8O as needed for pain 3070Nov[facility] 2024Status post reverse total shoulder replacement Presence of unspecified artificial shoulder jointUnknownLurasidone 120 mg tablet ActiveMGNov2024 12:00amUnknownTizanidine 4 mg cmbdraEpzpej6SFSCCmctd at bedtime as needed for muscle spasticityNovtucson heart hospital 2023 12:00amUnknown Lamotrigine 100 mg yzjjhoXzruco791FDGJFzoevkyPygmeapf 2023 12:00amUnknown Sertraline 100 mg tdtuqsPdlxhu289DAHHWwtyjjoMedbeegp 2023 12:00amUnknown Pimecrolimus 1 % creamDiscontinuedAPPLICTOPICALTristar [facility] 2023 12:00am September 12, 2025 12:28pmFurosemide 20 mg sebiakNaltlv97WHICBezsh 48 hours October 09, 2024 12:00amUnknownPioglitazone 30 mg gtvrtbZvnlxj72XMGZIhklclh October 09, 2024 12:00amUnknownAtorvastatin 40 mg yzahiwYbtadn53WPUXBmuos at bedtimeTristar [facility] 2023 12:00amUnknownGlyburide 5 mg qcsfqzMajzgk4LPWU .COMPLEXNovtucson heart hospital 2023 12:63aqrwspidil4 mg orally 2 tablets in am, 1 tablet in pm;UnknownSemaglutide (Ozempic) 0.25 mg or 0.5 mg (2 mg/3 mL) pen injector Discontinued0.5MGSUBCUTevery weekTristar [facility] 2023 12:00amSept2024 10:41amfor 4 weeksChlorhexidine Gluconate 0.12 % phctmlgnvRiehpvaxgiui59XGTP Twice dailyTristar [facility] 2023 12:00amOctt.[facility] 2024 12:25pmFexofenadine 180 mg flznxeElljbk913QJYYYucgjjgDovnqdmc 2023 12:00amallergy symptomsUnknown Gabapentin 300 mg spzrvpfTcqpue824QHEMVkjdx times dailyNov2023 12:00amUnknownMetformin 1,000 mg anwwrsBdcses2520NJOZIkjbu dailyNov2023 12:00amUnknownInsulin Lispro Protamin-Lispro 100 unit/mL (75-25) insulin xszMbxcib51RYVQZWEWEQMgrnymoAjvfutyo 2023 12:00amdiabetesUnknownLosartan 50 mg fkipyzPlgxvdyszjvx74PGNCDytltHukuqcvx 27th, 2024 12:00amJune 2024 12:23pmLurasidone 80 mg xycxojUjevgn58MTDCKdbxjgeLeydmfyv 27th, 2024 12:00am UnknownLurasidone 20 mg hxkfagOnvglx54CGQUOaysxvlJpaoyltc 27th, 2024 12:00am UnknownSemaglutide (Ozempic) 0.25 mg or 0.5 mg (2 mg/3 mL) pen rvdyhrkqQbwzft1UP SUBCUTevery weekS2024 10:41amdiabetesfor 4 weeksUnknownLosartan 50 mg nouonrTklslgnvsymg34BAMPJsuwwFuxj 2024 12:23pmJune 2024 12:24pm Losartan 25 mg wyjrdxYvlskvhccxar92JPWUQesis219Zcsx 3rd, 2025 12:23pmSept2024 12:11pmOxycodone 5 mg phkeqzWcyovmmtkhqz8NIYOPYWKW 4-6 HOURS as needed for vywb5624Bppq ugu2024 11:07amFracture of proximal end of left humerusdispense #42 (forty-two) Dx: S42.A left humerus fractureTramadol 50 mg uzkkwkThgonlezhajc44KEQWP4B7756 June 24, 2025 11:00pmSeptember 2024 7:52amFracture of proximal end of left humerusleft humerus fracture S42.A dispense 42 (forty-two) tabletsNaproxen 500 mg ukuxwqEkgizlnrbzda077WDCEZgdtu wlvop27267Vdtxyh 2024 11:00pmNov2024 7:28amCyclobenzaprine 5 mg bflmkzJrhyjcgijorb0AYTYHmlfj times daily as needed for muscle pnyyk5704Aggqck 2024 11:00pmOctober 2024 12:25pmTramadol 50 mg fvqparMuumhc39YPXD every 6 to 8 hours as needed for ouxv1605Iqpfbnyt 2024 8:41amStatus post reverse total shoulder replacement Presence of unspecified artificial shoulder jointleft humerus fracture S4 dispense 42 (forty-two) tabletsUnknownTramadol 50 mg umzwccEpecdgkvuzfu08BDFAE4A 427October 2024 9:46amOctober 2024 12:30pmFracture of proximal end of left humerusleft humerus fracture S4 dispense 42 (forty-two) tablets Medical Equipment Device Date Implanted Device Details Coated shoulder humeral stem prosthesis September 23, 2025 CINTHIA: ()[id number] Issuing Agency: [facility] Device Id: [id number] Expiration Date: 2033-06-16 Lot Number: [id number] shoulder prosthesis headNovember 2024UDI: ()[id number] Issuing Agency: [facility] Device Id: [id number] Expiration Date: 2035-04-02 Lot Number: [id number] shoulder prosthesis base plateNov2024 CINTHIA: ()[id number] Issuing Agency: [facility] Device Id: [id number] Expiration Date: 2035-08-08 Lot Number: [id number] prosthesis screwNovember 2024UDI: ()[id number] Issuing Agency: [facility] Device Id: [id number] Expiration Date: 2035-05-01 Lot Number: [id number] prosthesis screwNovember 2024UDI: ()[id number] Issuing Agency: [facility] Device Id: [id number] Expiration Date: 2035-08-22 Lot Number: [id number] prosthesis screwNovember 2024UDI: ()[id number] Issuing Agency: [facility] Device Id: [id number] Expiration Date: 2035-04-17 Lot Number: [id number] prosthesis screwNovember 2024UDI: ()[id number] Issuing Agency: [facility] Device Id: [id number] Expiration Date: 2033-10-08 Lot Number: [id number] prosthesis screwNovember 2024UDI: ()[id number] Issuing Agency: [facility] Device Id: [id number] Expiration Date: 2035-02-13 Lot Number: [id number] shoulder prosthesis bodyNovember 2024UDI: ()[id number] Issuing Agency: [facility] Device Id: [id number] Expiration Date: 2035-07-08 Lot Number: [id number] reverse shoulder prosthesis cupNovember 2024UDI: ()[id number] Issuing Agency: [facility] Device Id: [id number] Expiration Date: 2030-04-30 Lot Number: [id number] Procedures Procedure Date Performed Status XR shoulder LT min 2V* July 23, 2025 7:36 am completed XR shoulder LT min 2V* September 12, 2025 7:19am completed Relevant Diagnostic Tests and/or Laboratory Data Laboratory Results Test Collection Date/Time Result Date/Time Result Interpretation Reference Range Result Comment Performing Site Corrected White Blood Count September 12, 2025 12:27pm September 12, 2025 12:39pm 5.4 10*3/uL 4.[facility]-10.5[facility] [id number] [address] [place] [address] 79346Gledeuevq White Blood CountDehonorhealth [facility] 2024 8:39amDecember 2024 9:16am5.7 10*3/uL4.1-10.5F[facility] [id number] [address] [facility] 80692Gssfddyfjjy WBC CountOctober 2024 12:27pmOctober 2024 12:39pm5.4 10*3/uL4.1-10.5F[facility] [id number] [address] [facility] 34314Frm Blood CountOctober 2024 12:27pmOctober 2024 12:39pm3.29 10*6/uLBelow low normal3.90-5.60[facility] [id number] [address] [facility] 47636Wcg Blood CountDecember 2024 8:39amDecember 2024 9:16am3.20 10*6/uLBelow low normal3.90-5.60[facility] [id number] [address] [facility] 46139JfseprgjwuZjzmwtn 2024 12:27pmOctober 2024 12:39pm 11.2 g/dLBelow low knthli81.0-17.0[facility] [id number] [address] [place] [address] 60134DmahxztmqcPcwvxlrz 2024 8:39amDecember 2024 9:16am 10.7 g/dLBelow low zhhste67.0-17.0[facility] [id number] [address] [facility] 48941XezukreribUywbuxm 2024 12:27pmOctober 2024 12:39pm 32.5 %Below low xicakh48.8-50.0[facility] [id number] [address] [facility] 03768ClbgegrtanTymywedv 2024 8:39amDecember 2024 9:16am 31.0 %Below low .8-50.0[facility] [id number] [address] [facility] 19185Wvso Corpuscular VolumeOctober 2024 12:27pmOctober 2024 12:39pm98.8 fL83.5-101[facility] [id number] [address] [place] [address] 06774Iyny Corpuscular VolumeDecember 2024 8:39amDecember 2024 9:16am97.1 fL83.5-101[facility] [id number] [address] [place] [address] 27575Rzlq Corpuscular HemoglobinOctober 2024 12:27pmOctober 2024 12:39pm33.9 pg27.5-35.2F[facility] [id number] [address] [place] [address] 08390Vqgc Corpuscular HemoglobinDecember 2024 8:39amDecember 2024 9:16am33.5 pg27.5-35.2F[facility] [id number] [address] [place] [address] 73259Uidn Corpuscular Hemoglobin ConcentOctober 2024 12:27pm September 12, 2025 12:39pm34.3 g/dL32.5-35.6F[facility] [id number] [address] [place] [address] 10687Tfmp Corpuscular Hemoglobin ConcentDecember 2024 8:39am October 16, 2025 9:16am34.5 g/dL32.5-35.6F[facility] [id number] [address] [place] [address] 78168Pxf Cell Distribution WidthOctober 2024 12:27pmOctober 2024 12:39pm13.5 %12.0-14.8[facility] [id number] [address] [place] [address] 42670Haw Cell Distribution WidthDecember 2024 8:39amDecember 2024 9:16am13.5 %12.0-14.8[facility] [id number] [address] [place] [address] 11754Feeroydp CountOctober 2024 12:27pmOctober 2024 12:63ed639 10*3/qS217-518BsnsmqxqeSt. [facility] [id number] [address] [facility] 80728Eyrdwijv CountDecember 2024 8:39amDecember 2024 9:43ij403 10*3/xV589-954IrqkesodcSt. Elizabeth Hospital [facility] [id number] [address] [facility] 78796Tvqe Platelet VolumeOct2024 12:27pmOctober 2024 12:39pm8.0 fL6.6-10.1F[facility] [id number] [address] [facility] 46088Bhuz Platelet VolumeDecember 2024 8:39amDecember 2024 9:16am8.0 fL6.6-10.1F[facility] [id number] [address] [facility] 82913Rkuocehssyz (%) (Auto)September 12, 2025 12:27pmOctober 2024 12:39pm71.5 %.[facility] [id number] [address] [facility] 18625Xhasglgkocc (%) (Auto)September 12, 2025 12:27pmOctober 2024 12:39pm18.6 %.[facility] [id number] [address] [facility] 51360Gvzrclllw (%) (Auto)September 12, 2025 12:27pmOctober 2024 12:39pm8.1 %.[facility] [id number] [address] [facility] 11548Onadqfrcyxs (%) (Auto)September 12, 2025 12:27pmOctober 2024 12:39pm1.3 %.[facility] [id number] [address] [facility] 53552Akdqfnmsf (%) (Auto)September 12, 2025 12:27pmOctober 2024 12:39pm0.5 %.[facility] [id number] [address] [facility] 94494Omnmtjezw RBC Relative Count (auto)September 12, 2025 12:27pm September 12, 2025 12:39pm0.1 /100{WBC}0-0.5F[facility] [id number] [address] [place] 9519770Neutrophils # (Auto)September 12, 2025 12:27pmOctober 2024 12:39pm3.9 10*3/uL1.8-7.7F[facility] [id number] [address] [place] 9519770Lymphocytes # (Auto)September 12, 2025 12:27pmOctober 2024 12:39pm1.0 10*3/uL1.00-4.8[facility] [id number] [address] [place], [place] [address]Monocytes # (Auto)September 12, 2025 12:27pmOctober 2024 12:39pm0.4 10*3/uL0.0-0.8[facility] [id number] [address] [place], [place] 9[address]Eosinophils # (Auto)September 12, 2025 12:27pmOctober 2024 12:39pm0.1 10*3/uL0.0-0.45[facility] [id number] [address] [place], [place] [address]Basophils # (Auto)September 12, 2025 12:27pmOctober 2024 12:39pm0.0 10*3/uL0.0-0.2F[facility] [id number] [address] [place] [id number] ColorOctober 2024 1:15pmOctober 2024 1:29pm YellowYellowSt. Elizabeth Hospital Ctr [id number] [address] [place], [place] [address]Urine ColorDecember 2024 8:40amDecember 2024 9:19am Light-yellowYellowSt. Elizabeth Hospital Ctr [id number] [address] [place], [place] [address]Urine AppearanceOctober 2024 1:15pmOctober 2024 1:29pmCloudyAbnormal (applies to non-numeric results)ClearSt. Elizabeth Hospital Ctr [id number] [address] [facility] 87668Ujkan AppearanceDecember 2024 8:40amDecember 2024 9:19amClearClearSt. Elizabeth Hospital [facility]tr [id number] [address] [facility] 11124Cyijr Specific GravityOctober 2024 1:15pmOctober 2024 1:29pm1.0291.001-1.030[facility] [id number] [address] [facility] 29918Hejku Specific GravityDecember 2024 8:40amDecember 2024 9:19am1.0201.001-1.030[facility] [id number] [address] [place] [address]19770Urine pHOctober 2024 1:15pmOctober 2024 1:29pm5.5 5.0-9.0[facility] [id number] [address] [place] 9519770Urine pHDecember 2024 8:40amDecember 2024 9:19am5.5 5.0-9.0[facility] [id number] [address] [facility] 63126Gadyn Leukocyte EsteraseOctober 2024 1:15pmOctober 2024 1:29pmNegativeNegativeSt. Elizabeth Hospital Ctr [id number] [address] [facility] 94632Oackc Leukocyte EsteraseDecember 2024 8:40amDecember 2024 9:19amNegativeNegativeSt. Elizabeth Hospital [facility] [id number] [address] [facility] 59369Nrbce NitriteOctober 2024 1:15pmOctober 2024 1:29pm NegativeNegativeSt. Elizabeth Hospital Ctr [id number] [address] [facility] 29806Zjzqg NitriteDecember 2024 8:40amDecember 2024 9:19am NegativeNegativeSt. Elizabeth Hospital Ctr [id number] [address] [facility] 54933Vbxcx ProteinOctober 2024 1:15pmOctober 2024 1:29pm 20 mg/dLAbove high normalNegativeFirarchbalds [facility] [id number] [address] [facility] 58210Gqowx ProteinDecember 2024 8:40amDecember 2024 9:19am Negative mg/dLNegativeFirarchbalds [facility]ins [facility] [id number] [address] [facility] 15591Bvwsk Glucose (UA)September 12, 2025 1:15pmOctober 2024 1:29pmNormal mg/dLNormalFirarchbalds Martins [facility] [id number] [address] [facility] 70580Kzobb Glucose (UA)October 16, 2025 8:40amDecember 2024 9:19amNormal mg/dLNormalSt. [facility] Hospital [facility] [id number] [address] [facility] 67846Tounz KetonesOctober 2024 1:15pmOctober 2024 1:29pm TraceAbove high normalNegativeFirOhioHealth [facility]tr [id number] [address] [facility] 61581Vbrrm KetonesDecember 2024 8:40amDecember 2024 9:19am NegativeNegativeFirarchbalds Martins [facility] [id number] [address] [facility] 23865Wjyga UrobilinogenOctober 2024 1:15pmOctober 2024 1:29pm4 mg/dLAbove high normalNormalFirarchbalds [facility]ins [facility] [id number] [address] [facility] 30748Hifwm UrobilinogenDecember 2024 8:40amDecember 2024 9:19amNormal mg/dLNormalFirarchbalds [facility]ins [facility] [id number] [address] [facility] 51770Xyzxd BilirubinOctober 2024 1:15pmOctober 2024 1:29pmNegativeNegativeFirarchbalds [facility] [id number] [address] [facility] 81577Bzpvt BilirubinDecember 2024 8:40amDecember 2024 9:19amNegativeNegativeSt. [facility] [id number] [address] [facility] 62277Xbwoy Occult BloodOctober 2024 1:15pmOctober 2024 1:29pmNegativeNegativeSt. [facility] Hospital [facility] [id number] [address] [facility] 71444Bmbjd Occult BloodDecember 2024 8:40amDecember 2024 9:19amNegativeNegativeSt. [facility] Hospital [facility] [id number] [address] [facility] 31077Vwcxb RBCOctober 2024 1:15pmOctober 2024 1:09cu4-8 [HPF]0-4F[facility] [id number] [address] [facility] 80153Tglxu WBCOctober 2024 1:15pmOctober 2024 1:61og0-8 [HPF]0-4F[facility] [id number] [address] [facility] 81067Wetca Squamous Epithelial CellsOctober 2024 1:15pmOctober 2024 1:69mo9-6 [HPF]0-2F[facility]Health [facility] [id number] [address] [facility] 73344Xgyby BacteriaOctober 2024 1:15pmOctober 2024 1:36pmNone seen [HPF]None SeenSt. Elizabeth Hospital Ctr [id number] [address] [facility] 48970Yufjb Hyaline CastsOctober 2024 1:15pmOctober 2024 1:25pf72-57 [LPF]Above high normal0-8[facility] [id number] [address] [facility] 40761Nqith MucusOctober 2024 1:15pmOctober 2024 1:36pm1+ [LPF]Abnormal (applies to non-numeric results)[facility] [id number] [address] [facility] 13024Mvhazrb LevelDecember 2024 8:39amDecember 2024 10:49am47 mg/dLBelow lower panic oesuyr49-198Sjrsmafw Result Called to and read back by: ELDER PAN at: 10/16/2025 10:49:33 by:[id number] recommended reference rangeRandom Glucose Reference Range is dependent on time and content of last meal. Glucose of more than 200 mg/dL in a nonstressed, ambulatory subject supports the diagnosis of Diabetes Mellitus.[facility] [id number] [address] [facility] 65921Zbvzvgk LevelOctober 2024 12:27pmOctober 2024 1:88tp455 mg/dLAbove high xyhpba22-634PAU recommended reference rangeSt. Elizabeth Hospital Ctr [id number] [address] [facility] 51071Kkvrm Urea NitrogenOctober 2024 12:27pmOctober 2024 1:16pm27 mg/dLAbove high normal7-[facility] [id number] [address] [place] [address] 35996Vezkr Urea NitrogenDecemb2024 8:39amDecember 2024 10:49am20 mg/dL7-25[facility] [id number] [address] [place] [address] 50556FwacozqizxWfsiobn 2024 12:27pmOctober 2024 1:16pm 1.62 mg/dLAbove high normal0.70-1.30[facility] [id number] [address] [place] [address] 97256UsfcanbfsoQhbfsabq 4th, 2025 8:39amDecember 2024 10:49am 1.22 mg/dL0.70-1.30[facility] [id number] [address] [place] [address] 31483Xptwtadoe GFR (CKD-EPI)September 12, 2025 12:27pmOctober 2024 1:16pm46.237 mL/MinSt. Elizabeth Hospital Ctr [id number] [address] [place] [address] 36041Exyzknfqs GFR (CKD-EPI)October 16, 2025 8:39amDecember 4th, 2025 10:49am> 60.0 mL/MinSt. Elizabeth Hospital Ctr [id number] [address] [facility] 88148Imnewh LevelOctober 2024 12:27pmOctober 2024 1:16pm 138 mmol/C563-654DymnhealkSt. Elizabeth Hospital Ctr [id number] [address] [facility] 58485Dlhygm LevelDecember 2024 8:39amDecember 2024 10:49am 142 mmol/V566-218WcxlgutncSt. Elizabeth Hospital [facility] [id number] [address] [facility] 80218Eixopbkpn LevelOctober 2024 12:27pmOctober 2024 1:16pm4.9 mmol/L3.5-5.1F[facility] [id number] [address] [facility] 78392Fjzscbutk LevelDecember 2024 8:39amDecember 2024 10:49am4.8 mmol/L3.5-5.1FMet[facility] [id number] [address] [facility] 73743Tvldltfx LevelOctober 2024 12:27pmOctober 2024 1:84qj443 mmol/G28-508FbyeazptoSt. Elizabeth Hospital Ctr [id number] [address] [facility] 18104Eixtsizq LevelDecember 2024 8:39amDecember 2024 10:45ts463 mmol/LAbove high guilyg96-969ZbsjghueoSt. Elizabeth Hospital Ctr [id number] [address] [facility] 56775Mvcsgb Dioxide LevelOctober 2024 12:27pmOctober 2024 1:16pm25.6 mmol/L21.0-31.0[facility] [id number] [address] [facility] 20223Soyulx Dioxide LevelDecember 2024 8:39amDecember 2024 10:49am24.7 mmol/L21.0-31.0[facility] [id number] [address] [facility] 33583Yyglc GapOctober 2024 12:27pmOctober 2024 1:16pm 11.3 mEq/L6.0-15.0[facility] [id number] [address] [facility] 39690Wvjch GapDecember 2024 8:39amDecember 2024 10:49am 13.1 mEq/L6.0-15.0[facility] [id number] [address] [facility] 24989Timrumg LevelOctober 2024 12:27pmOctober 2024 1:16pm8.8 mg/dL8.6-10.3F[facility] [id number] [address] [facility] 24539Bztbajh LevelDecember 2024 8:39amDecember 2024 10:49am8.9 mg/dL8.6-10.3FMet[facility] [id number] [address] [facility] 48672Nvitljnpjo LevelDecember 2024 8:39amDecember 2024 10:49am3.2 mg/dL2.5-4.5F[facility] [id number] [address] [facility] 41951Djcvqzdzw LevelDecember 2024 8:39amDecember 2024 10:49am1.8 mg/dLBelow low normal1.9-2.7FMet[facility]Health [facility] [id number] [address] [facility] 06570Yqnyl ProteinOctober 2024 12:27pmOctober 2024 1:16pm6.2 g/dLBelow low normal6.4-8.9[facility] [id number] [address] [facility] 10883DfttxgaJqjxudm 2024 12:27pmOctober 2024 1:16pm4.0 g/dL3.5-5.7F[facility] [id number] [address] [facility] 48708PyspcyfJmzqdrkx 2024 8:39amDecember 2024 10:49am4.0 g/dL3.5-5.7FMet[facility] [id number] [address] [facility] 196[address]VmsznddpPvepswq 2024 12:27pmOctober 2024 1:16pm2.2 g/dLSt. [facility] [id number] [address] [place] [address] 40504Eipxqkk/Globulin RatioOctober 2024 12:27pmOctober 2024 1:16pm1.8[facility] [id number] [address] [place] [address] 39321Lcvag BilirubinOctober 2024 12:27pmOctober 2024 1:16pm0.4 mg/dL0.3-1.0[facility] [id number] [address] [place] [address] 04970Nsqunkbfp Amino Transf (AST/SGOT)September 12, 2025 12:27pm September 12, 2025 1:16pm14 U/P07-80MpabgrmyiSt. Elizabeth Hospital [facility] [id number] [address] [place] [address] 36123Dmlyesg Aminotransferase (ALT/SGPT)September 12, 2025 12:27pm September 12, 2025 1:16pm11 U/L7-52[facility] [id number] [address] [place] [address] 22469Swbtksnc PhosphataseOct2024 12:27pmOctober 2024 1:16pm87 U/T82-957WxmlihqvsSt. Elizabeth Hospital [facility] [id number] [address] [place] [address] 38411Emtk AcidDecember 2024 8:39amDecember 2024 10:49am4.2 mg/dLBelow low normal4.4-7.6F[facility] [id number] [address] [place] [address] 56682Izif LevelDecemb2024 8:39amDecember 2024 10:49am78 ug/rD00-855TklilbtweSt. Elizabeth Hospital [facility] [id number] [address] [place] [address] 24051Tebnu Iron Binding CapacityDecemb2024 8:39amDecember 2024 10:34zv119 ug/dLAbove high -181FmdhhrklmSt. Elizabeth Hospital [facility] [id number] [address] [facility] 29115Faml SaturationDecember 2024 8:39amDecember 2024 10:49am16.5 %Below low rxytgb54-05NdinnbogkSt. Elizabeth Hospital [facility] [id number] [address] [facility] 71920EqdueuwfkutHztmcizj 2024 8:39amDecember 2024 10:49am 338 mg/fX546-761FzrupzxieSt. [facility] Hospital [facility] [id number] [address] [place] [address] 49566PttnvdkhHszjcumw 2024 8:39amDecember 2024 10:49am19.2 ng/mLBelow low eilhlc03.9-336.2F[facility] [id number] [address] [place] [address] 86822Cbeptbw B12 LevelDece2024 8:39amDecember 2024 10:95uh719 pg/wG698-826UjuxpzlswSt. [facility] Hospital [facility] [id number] [address] [place] [address] 54710AwjzpqTbfxqxqe 4th, 2025 8:39amDecember 2024 10:49am12.8 ng/mL>5.9Folate reference range: >5.9 ng/mlThe WHO technical consultation on folate and vitamin m21ajtggzzzssge has determined that folate concentrations lessthan 4 ng/ml are considered deficient.[facility] [id number] [address] [facility] 68091Ysupxcqtyxc Hormone (Intact)October 16, 2025 8:39amDecember 2024 10:35am30.9 pg/hG73-79YpcokqrxvSt. Elizabeth Hospital [facility] [id number] [address] [facility] 51045Qolxcgoy Creatinine Clearance (ChemOctober 2024 12:27pm September 12, 2025 1:16pmN/[facility] [id number] [address] [facility] 35952Ipmqfhkt Creatinine Clearance (ChemDecember 2024 8:39am October 16, 2025 10:49amN/[facility] [id number] [address] [facility] 20686Xtltnithbs S9yYhtmtgc 2024 12:27pmNov2024 8:58am6.0 %Above high normal4.3-5.6Increased risk for diabetes: 5.7 - 6.4diabetes: >6.4glycemic control for adults with diabetes: <7.0[facility] [id number] [address] [facility] 06246Ltcxoisxb Average GlucoseOctober 2024 12:27pmNov2024 8:66na812 mg/dLSt. [facility] [id number] [address] [facility] 04578Ecwit Microalbumin mg/dlDecemb2024 8:40amDecember 2024 9:41am2.2 mg/dLAbove high normal0.0-1.8[facility] [id number] [address] [facility] 979[address]Hauaw Random CreatinineDecember 2024 8:40amDece2024 9:39ov596.00 mg/dLNo reference range establishedSt. [facility] Hospital [facility] [id number] [address] [facility] 97428Cixzb Microalbumin/Creatinine RatioDece2024 8:40am October 16, 2025 9:41am18.5 mg/g0.0-30.030-300 mg/g indicates an increased risk for diabetic nephropathy. Greater than 300 mg/g is consistent with clinical nephropathy. (Am. J. Kidney Disease 1994, 25:107)[facility] [id number] [address] [facility] 89411Uzobx Random Total ProteinDecember 2024 8:40amDece2024 9:41am19 mg/dLAbove high normal0-9[facility] [id number] [address] [facility] 83398Prdga Protein/Creatinine RatioDecemb2024 8:40amDecemb2024 9:79sf148 mg/g{Cre}0-200[facility] [id number] [address] [facility] [address] Diagnostic Imaging Reports Author Shameka Bedolla City HospitalAuthoredSeptember 2024 12:09pmReport Dictated Date/TimeDictated ByStatusRadiology ReportSeptember 2024 12:09pm Shameka Bedolla [facility] [address] [place] [address] XRay Report Signed Patient: Robbin Ahn MR#: [id number] : 1960 Acct:[id number] Age/Sex: 65 / M ADM Date: 5 Loc: [facility] Room: Type: [facility] CLI Attending Dr: Landen Hanley DO Copies [...] Bedolla M.D. 07/23/2025 12:12 PM Dictation Location: [facility] Transcribed By: [facility] 07/23/25 1212 Dictated By: Shameka Bedolla MD 07/23/25 1209 Signed By: <Electronically signed by MD Shameka Bedolla in [place]> 07/23/25 1212 Author Adin Oakley City HospitalAuthoredOctober 2024 6:01pmReportDictated Date/TimeDictated ByStatusRadiology ReportOctober 2024 6:01pmColby ZapataUK Healthcare [facility] [address] [place] [address] XRay Report Signed Patient: Robbin Ahn MR#: [id number] : 1960 Acct:[id number] Age/Sex: 65 / M ADM Date: 5 Loc: [facility] Room: Type: [facility] CLI Attending Dr: Landen Hanley DO Copies [...] Oakley M.D. 09/12/2025 6:04 PM Dictation Location: [place] [address] Transcribed By: [facility] 09/12/251803 Dictated By: Adin Oakley MD 09/12/251800 Signed By: <Electronically signed by Adin Oakley MD in [place]> 09/12/251803 Vital Signs Vital Reading Result Reference Range Collection Date/Time Height 69 [in_i] July 23, 2025 8:78uaSchmko706.13 kgSept2024 8:31amBMI (Body Mass Index)36.1 kg/z6Brxtrhjdv2024 8:30iaNzsfet60 [in_i]July 24, 2025 10:37lqIxbkxg320.02 kgSept2024 10:33amHeart Rate82 /yvd86-373 July 24, 2025 10:33amOxygen saturation by Pulse dbxkiktk07 %95-100 July 24, 2025 10:33amBP Ijplslih086 mm[Hg]100-140Sept2024 10:33amBP Zqbpntiyb31 mm[Hg]60-100Sept2024 10:33amBMI (Body Mass Index)38.0 kg/c2Cghnovuqn2024 10:39ypMgbnjl28 [in_i]August 26, 2025 7:46amHeart Rate80 /jhg05-427Gijywvw 14th, 2025 7:40amRespiratory rate18 /min 12-24Oct2024 7:40amOxygen saturation by Pulse mdpbblio08 %95-100 August 26, 2025 7:40amBP Hcjhpolh401 mm[Hg]100-140August 26, 2025 7:40amBP Saihriwfx59 mm[Hg]60-100Oct2024 7:94wzFpotjj36 [in_i]September 23, 2025 12:20zpKzgzev991.60 kgSeptember 24, 2025 6:21amBody Ggfnokoorcg92.9 [degF] 97.6-99.0September 24, 2025 8:20amHeart Rate98 /jim52-562LvysrgyjSeptember 24, 2025 8:20amRespiratory rate16 /nmv36-99KwhargqsSeptember 24, 2025 8:20amOxygen saturation by Pulse gocqiogt82 %95-100September 24, 2025 8:20amBP Xhchmcdi328 mm[Hg]100-140 September 24, 2025 8:20amBP Dxfqrvnrp44 mm[Hg]60-100September 24, 2025 8:20am Inhaled oxygen flow rate1 L/minSeptember 24, 2025 4:37am Advance Directives Advance Directive Response Recorded Date/ Time Advance Directives No April 21 3:57pm Insurance Providers Guarantor Robbin Ahn Address [address] [id number] Info.Home Phone: Coverage Status Update:2025 Payer Group Member ID Coverage Type Subscriber Relationship to Subscriber Effective Date Expiration Date Medicaid [id number] A [place] Id: [id number] [address] [address] Home Phone: [place] Id: [id number] A [place]born Id: [id number] [address] [address] Home Phone: SelfMedicare Id: [id number] A [place] Id: [id number] [address] [address] Home Phone: Self Encounters Encounter Location(s) Arrival/Admit Date Discharge/Departure Date Discharge/Departure Disposition Provider(s) Departed Clinical -[facility] July 23, 2025 8:35am July 23, 2025 8:36am Discharged to home care or self care (routine discharge) Landen Hanley DO Departed Physician/ Provider Office Visit -[facility] July 23, 2025 9:16am July 23, 2025 10:12am Discharged to home care or self care (routine discharge) Landen Hanley DO Departed Physician/ Provider Office Visit -[facility] July 24, 2025 11:26am July 24, 2025 12:05pm Discharged to home care or self care (routine discharge) Lluvia Woodward APRN-ASSOCIATE SOFTWARE ENGINEER-C Departed Physician/ Provider Office Visit -[facility] August 26, 2025 8:37am August 26, 2025 9:03am Discharged to home care or self care (routine discharge) Gold Burgess DO Departed Clinical -[facility] September 12, 2025 8:18am September 12, 2025 8:19am Discharged to home care or self care (routine discharge) Landen Hanley DO Departed Physician/ Provider Office Visit -[facility] September 12, 2025 10:02am September 12, 2025 12:21pm Discharged to home care or self care (routine discharge) Landen Hanley DO Departed Clinical -Pre-Surgica l Testing September 12, 2025 12:50pm September 12, 2025 12:51pm Discharged to home care or self care (routine discharge) Landen Hanley DO Registered Recurring -[facility] September 19, 2025 1 0:00am Charlie Mcdonald MDNon-patient / [facility] September 23, 2025 11:04amJuBeto Emeryed Physician/Provider [facility] 2024 8:21amNovember 2024 8:46amDischarged to home care or self care (routine discharge)Aparna Soto Clinical-Lab [facility] 2024 8:29amDeceabrazo [facility] 2024 8:30amDischarged to home care or self care (routine discharge)Elia Pan MD Recent Diagnosis Onset Date Admit Date Fracture [...] Fracture of proximal end of left humerus acuteSept2024 9:16amDegenerative disc disease, lumbarchronic July 24, 2025 11:26amDiabetic nephropathy associated with type 2 diabetes mellituschronicSept2024 11:26amFacet arthropathy, lumbarchronic July 24, 2025 11:26amLumbosacral radiculopathychronicSept2024 11:26amMyalgiachronicSeptember 2024 11:26amFracture of proximal end of left humerusacuteOctober 2024 10:02amOther nondisplaced fracture of upper end of left humerus, subsequent encounacuteOctober 2024 10:02amPre-op exam acuteOctober 2024 10:02amS/p reverse total shoulder arthroplastyacute September 23, 2025 11:04amOther nondisplaced fracture of upper end of left humerus, subsequent encounacuteNov2024 8:21amS/p reverse total shoulder arthroplastyacuteNov2024 8:21am Plan of Treatment Author Landen Hanley [facility] HospitalAutohio state east hospitalSept2024 9:38amScott returns with left proximal humerus fracture. [...] restrictions. We will fax updated order to [facility]. Patient can call if he needs a refill of tramadol. Patient is to follow up in 6 weeks with xray Note scribed by AN Clifton, reviewed and amended by myself Landen Hanley D.O. 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 Overall doing well. Physical exam and x-rays reviewed with patient. Will get him working on passive motion with home exercise program initially. I will see back in approximately 2 weeks for x-rays and to get going in physical therapy for range of motion work at that time. Patient is slowly progressing from surgery. Incision continues [...] therapy at that time. Author Lluvia Woodward City HospitalAuthoredSeptember 2024 4:43pmIt is my impression that the [...] plan. All questions answered. Author Landen Hanley City HospitalAuthoredOctober 2024 9:54amScoingrid returns with left proximal humerus fracture. At [...] poor healing. I have advised against the mcfp use of narcotic pain medication. I have [...]
--- NOTE | 2025-10-20 | XR_ITS ---
The [address] [address] Patient Name: SHALINI BARTLETT MRN: [id number] date: 1960 Sex: M Assigned Patient Location: [facility] Current Patient Location: [facility] Accession/Order Number: [id number] Exam Date: 10/20/2025 10:15 Report Date: 10/20/2025 10:46 At the request of: LINA MCDONOUGH DO Procedure: XR shoulder LT min 2V LEFT SHOULDER - 3 views CLINICAL HISTORY: Left posterior shoulder pain. Previous shoulder replacement. COMPARISON: 05/30/2025 AP, Y and Grashey views were obtained. There is osteopenia. A new reverse shoulder prosthesis is visualized. There is no acute fracture or dislocation. There is mild degenerative change at the acromioclavicular joint and spurring at the periphery of the acromion. There are no significant soft tissue abnormalities. XR/XR shoulder LT min 2V IMPRESSION: OSTEOPENIA WITH POSTOPERATIVE AND DEGENERATIVE CHANGES. NO DEFINITE ACUTE BONY FINDINGS. Impression dictated by: Shameka Bedolla M.D. 10/20/2025 10:46 AM Dictation Location: [place] [address] Electronically authenticated by: [id number] Y Date: 10/20/2025 10:46
--- OUTSIDE RECORDS SUMMARY | 2025-10-20 09:11 | XMS_ITS | CCD ---
Author Organization [facility] Care Team Providers Care Labor Arbitrator Name Role Phone PHYSICIAN, DEFAULT Unavailable Unavailable PHYSICIAN, DEFAULT Unavailable Unavailable AICHHOLZ, DISPATCHER CHIEF OIL IDALMIS Admitting Unavailable AICHHOLZ, DISPATCHER CHIEF OIL IDALMIS Attending Unavailable AICHHOLZ, DISPATCHER CHIEF OIL IDALMIS Consulting Unavailable AICHHOLZ, DISPATCHER CHIEF OIL IDALMIS Primary Care Unavailable TEMI MEYERS Attending Unavailable TEMI MEYERS Admitting Unavailable AICHHOLZ, DISPATCHER CHIEF OIL IDALMIS Primary Care Unavailable AICHHOLZ, DISPATCHER CHIEF OIL IDALMIS Admitting Unavailable AICHHOLZ, DISPATCHER CHIEF OIL IDALMIS Attending Unavailable AICHHOLZ, DISPATCHER CHIEF OIL IDALMIS Consulting Unavailable AICHHOLZ, DISPATCHER CHIEF OIL IDALMIS Primary Care Unavailable AICHHOLZ, DISPATCHER CHIEF OIL IDALIMS Admitting Unavailable AICHHOLZ, DISPATCHER CHIEF OIL IDALMIS Attending Unavailable AICHHOLZ, DISPATCHER CHIEF OIL IDALMIS Consulting Unavailable AICHHOLZ, DISPATCHER CHIEF OIL IDALMIS Primary Care Unavailable AICHHOLZ, DISPATCHER CHIEF OIL IDALMIS Admitting Unavailable AICHHOLZ, DISPATCHER CHIEF OIL IDALMIS Attending Unavailable DR JOCELYN ZALDIVAR V Consulting Unavailable AICHHOLZ, DISPATCHER CHIEF OIL IDALMIS Primary Care Unavailable AICHHOLZ, DISPATCHER CHIEF OIL IDALMIS Consulting Unavailable NON STAFF Primary Care Provider UnavailMD Naima Nash Attending Provider LUIS Kendall Attending Provider [phone] Rasheeda Santamaria Unavailable Aichholz, Idalmis J Primary Care Unavailable Aichholz, Idalmis J Consulting Unavailable JACLYN SNELL Attending Unavailable FATIMAH JACLYN Jos Admitting Unavailable Aichholz, Idalmis J Primary Care Unavailable Jocelyn Zepeda Consulting Unavailable JACLYN SNELL Attending Unavailable STEPRASHAD JACLYN C Admitting Unavailable Alonso Vazquez Consulting Unavailable Aichholz CIVIL CADD TECHNICIAN, Idalmis Unavailable Aicarthur CIVIL CADD TECHNICIAN, Idalmis Unavailable Baljinder Pineda MD Primary Care Provider Kia CIVIL CADD TECHNICIAN, Idalmis Unavailable Tosha Mesa LPN Unavailable Unavailable Unallorah FINE, [place]imes[place] Provider Primary Care Provi senia Umesh Aquino MD Primary Care Provider Tim ONTIVEROS Felicianofacundo Unavailable Unavailable Umesh Aquino Primary Care Physician NON STAFF Primary Care Provider UnavailCharlie Nash MD Attending Provider Umesh Aquino MD Primary Care Provider Elia Magallanes MD Attending Provider NON STAFF Primary Care Provider UnavailCharlie Nash MD Attending Provider NON STAFF Primary Care Provider UnavailCharlie Nash MD Attending Provider Umesh Aquino MD Primary Care Provider Elia Magallanes MD Attending Provider NON STAFF Primary Care Provider UnavailCharlie Nash MD Attending Provider Landen Hanley DO Attending Provider QUIRINO WU Attending Unavailable QUIRINO WU Attending Unavailable Umesh Aquino Attending Unavailable QUIRINO WU Admitting Unavailable QUIRINO WU Attending Unavailable Umesh Aquino Admitting Unavailable Umesh Aquino Attending Unavailable Umesh Aquino MD Primary Care Provider QUIRINO WU Attending Unavailable QUIRINO WU Admitting Unavailable Kia CIVIL CADD TECHNICIAN, Idalmis Unavailable Umesh Aquino MD Primary Care Provider Umesh Aquino MD Primary Care Provider Trace MEDRANO-COMPUTER CONSOLE OPERATOR-Lluvia Arguello Attending Provider Ross, Umesh E. Attending Unavailable Miles, Umesh E. Attending Unavailable Miles, Umesh E. Attending Unavailable Ross, Umesh E. Attending Unavailable Ross, Umesh E. Admitting Unavailable Ross, Umesh E. Attending Unavailable Miles, Umesh E. Attending Unavailable Umesh Aquino ETeena Attending Unavailable Umesh Aquino Attending Unavailable Temi Meyers DO Attending Provider [phone] [facility] CIVIL CADD TECHNICIAN, Idalmis Unavailable SAMAN COLEMAN Attending Unavailable BURTDEJAN Attending Unavailable BURT, DEJAN Rivas Referring Unavailable WOODWARD, LLUVIA Attending Unavailable TEMI MEYERS Attending Unavailable WOODWARD, LLUVIA Referring Unavailable COLEMAN, SAMAN H Attending Unavailable SAMAN COLEMAN H Attending Unavailable RUSHER, KAI Valenzuela Attending Unavailable SAMAN COLEMAN H Referring Unavailable BURT, DEJAN Rivas Attending Unavailable BURT, DEJAN Rivas Referring Unavailable RUSHER, KAI Valenzuela Attending Unavailable RUSHER, KAI S Attending Unavailable SAMAN COLEMAN Attending Unavailable BURT, DEJAN Rivas Attending Unavailable SAMAN COLEMAN Attending Unavailable ELMIRA RUTH Attending Unavailable JOSE KENDALL Attending Unavailable TEMI MEYERS Attending Unavailable JOSE KENDALL Referring Unavailable SAMAN COLEMAN Attending Unavailable Landen Hanley DO Attending Provider [phone] Umesh Aquino MD Primary Care Provider [phone] NON STAFF Primary Care Provider UnavailCharlie Nash MD Attending Provider [phone] Landen Hanley Admitting Unavailable Geovany Hanleyin A Attending Unavailable Miles, Umesh E Primary Care Unavailable Geovany Hanleyin A Admitting Unavailable Geovany Hanleyin A Attending Unavailable Miles, Umesh E Primary Care Unavailable NON STAFF Primary Care Unavailable Geovany Hanleyin A Attending Unavailable Dayan Landen A Admitting Unavailable NON STAFF Primary Care Unavailable Geovany Hanleyin A Attending Unavailable Geovany Hanleyin A Admitting Unavailable Charlie Mcdonald Admitting Unavailab le Charlie Mcdonald Attending Unavailab le NON STAFF Primary Care Unavailable Ross, Umesh E Primary Care Unavailable Bakjannies Aziz Admitting Unavailable JihansJadoniz Attending Unavailable NON STAFF Primary Care Unavailable Landen Hanley Attending Unavailable Landen Hanley Admitting Unavailable Umesh Aquino Primary Care Unavailable Elia Magallanes Admitting Unavailable Elia Magallanes Attending Unavailable Allergies Allergy ClassificationReported Allergen(s)Allergy TypeDate of OnsetReaction(s) Facility (1 source)AllopurinolDrug Mnkhxsg84-04-5272Yvq [facility] Repository (1 source)Bee pollenDrug allergy (disorder)81-84-2943Oof [facility] Repository (14 sources)PenicillinsDrug allergy (disorder)11-23-4982Vfybuyi Reaction, Swelling of Lip/Tongue/ThroatThe [facility] (2 sources)AmoxicillinDrug AllergyUnkSouth [facility] Hospital [facility] Other (7 sources)Penicillin; Translations: [penicillin]Drug AllergyEruption of skin (disorder)[facility] Repository (2 sources)pine treesPropensity to adverse reactionsRhode Island [facility]opathic [facility] [employer] Other (2 sources)Tetanus Toxoid AdsorbedDrug allergyRhode Island Homeopathic Hospital [employer] Other (5 sources)Tetanus vaccine; Translations: [tetanus toxoid]Propensity to adverse reactions to drug (disorder)Eruption of skin (disorder)[facility] (20 sources)PenicillinsPropensity to adverse igcpljmws89-35-8524Gplzj, Swelling [facility] (20 sources)Tetanus vaccinePropensity to adverse -79-8107Zpgub, SwellingNOMS Healthcare (4 sources)Bee pollen; Translations: [bee pollen]Drug AllergySwelling (morphologic abnormality)[facility] (4 sources)[place] needles; Translations: [[place] needles]Allergy to substance Eruption of skin (disorder)[facility] (14 sources)Amoxicillin; Translations: [amoxicillin]Drug Ijdefdo59-90-1266 Unknown Reaction, Swelling of Lip/Tongue/ThroatBl[facility] (14 sources)[place] nut; Translations: [pine nut]Allergy to rmowstdia58-54-6171 Unknown Reaction, Swelling of Lip/Tongue/ThroatBl[facility]ard [facility] (14 sources)tetanus toxoid, adsorbed; Translations: [tetanus toxoid, adsorbed] Allergy to dnyzsxkaz45-78-9104Gqusohc ReactionBlanchard Valley Health System (12 sources)Tetanus Toxoid-Containing VaccinesPropensity to adverse reactions 17-00-7836[facility]onM[facility]uff [facility] (1 source)PenicillinsDrug allergy (disorder)20-45-6636ZhgsggzzhBlanchard Valley Health System Repository Medications Current Medications MedicationDrug Class(es)DatesSig (Normalized)Sig (Original)3 ML semaglutide 1.34 MG/ML Pen Injector [Ozempic] (1 source)Start: 55-71-2410kgdnse 1 mg by subcutaneous injection every week Ozempic (1 mg dose) 4 mg/3 mL subcutaneous solution 1 mg, SubCutaneous, qWeek, # 12 EA, Refills(s) 1, Pharmacy: [facility]/pharmacy #[id number], 174.5, cm, 10/30/24 10:27:00 EST, Height/Length Dosing, 122.8, kg, 10/30/24 10:27:00 EST, Weight Dosing Start Date: 10/30/24 Status: Orderedacetaminophen 325 mg / HYDROcodone bitartrate 5 mg oral tablet (20 sources)Opioid AgonistStart: 43-94-8632wyct 1 tablet by mouth every six hours as neededHYDROcodone-acetaminophen ([place]) 5-325 MG tablet Take 1 tablet by mouth every 6 (six) hours if needed 07/12/2024 Activeamoxicillin 500 mg oral tablet (6 sources)Penicillin-class AntibacterialStart: 12-22-2023 End: 45-04-0174urtw 4 tablets by mouth once at mealtimeamoxicillin (Amoxil) 500 MG tablet Indications: S/P total right hip arthroplasty 4 tabs PO once 30-60 mins before procedure with food 4 tablet 3 12/22/2023 Activeaspirin 81 mg delayed release oral tablet (4 sources)Platelet Aggregation Inhibitor, Nonsteroidal Anti-inflammatory Drug take 1 tablet by mouth in the morningaspirin 81 MG EC tablet Take 81 mg by mouth in the morning. 0 Activeatorvastatin 40 mg oral tablet (20 sources)HMG-CoA Reductase InhibitorStart: 04-01-2024 End: 39-76-2248abzd 1 tablet by mouth once daily at bedtimeAtorvastatin 40 mg tablet Active 40 MG PO Daily at bedtime October 09, 2024 1:00am Complies with drug therapyStart: 11-16-2023 End: 72-21-1413axwm 1 tablet by mouth in the morningatorvastatin (Lipitor) 40 MG tablet Indications: Type 2 diabetes mellitus with peripheral neuropathy (CMS/HCC) Take 1 tablet (40 mg) by mouth in the morning. 90 tablet 1 11/16/2023 02/14/2024 Activecholecalciferol 0.05 mg oral tablet (4 sources)Vitamin Dtake 1 tablet by mouth in the morningcholecalciferol (Vitamin D-3) 50 MCG (2000 UT) tablet Take 2,000 Units by mouth in the morning. 0 ActiveContinuous Glucose Vocational Examiner (FreeStyle Anibal 3 [place]) device (11 sources)Start: 04-17-2024 End: 83-52-1577Xonjlotapr Glucose Vocational Examiner (FreeStyle Anibal 3 [place]) device Indications: Type 2 diabetes mellituswith insulin therapy (CMS/HCC) 1 each Daily 1 each 2 04/17/2024 07/26/2024 ActiveContinuous Glucose Sensor (FreeStyle Anibal 3 Sensor) misc (10 sources)Start: 08-12-2024 End: 00-24-8147Zbttewgkeu Glucose Sensor (FreeStyle Anibal 3 Sensor) misc Indications: Type 2 diabetes mellitus with insulin therapy (CMS/HCC) 1 each by Other route Daily for 28 days CHANGE SENSOR EVERY 14 DAYS 2 each 11 08/12/2024 09/09/2024 ActiveStart: 07-20-2024 End: 95-32-7058Lpafgcdnli Glucose Sensor (FreeStyle Anibal 3 Sensor) misc CHANGE SENSOR EVERY 14 DAYS 07/20/2024 08/12/2024 Discontinued (Reorder)Start: 95-81-8141Jvyckuzwjv Glucose Sensor (FreeStyle Anibal 3 Sensor) misc CHANGE SENSOR EVERY 14 DAYS 07/20/2024 Activedocusate sodium 100 mg oral capsule (4 sources)take 1 capsule by mouth in the morningdocusate sodium (Colace) 100 MG capsule Take 100 mg by mouth in the morning and 100 mg before bedtime. 0 Active 0.5 ml dulaglutide 3 mg/ml auto-injector (2 sources)GLP-1 Receptor AgonistTrulicity 1.5 MG/0.5ML as directed Subcutaneous Activedulaglutide (Trulicity) 3 MG/0.5ML solution pen-injector (4 sources)Start: 59-06-8006cgnbwfweywf (Trulicity) 3 MG/0.5ML solution pen- injector Indications: Type 2 diabetes mellitus withperipheral neuropathy (CMS/HCC) INJECT 1 PEN SUBCUTANEOUSLY ONCE A WEEK 12 each 1 11/16/2023 Active etodolac 400 mg oral tablet (20 sources)Nonsteroidal Anti-inflammatory DrugStart: 65-94-2299zqoe 1 tablet by mouth twice daily as neededetodolac (Lodine) 400 MG tablet Take 400 mg by mouth 2 (two) times a day as needed 07/18/2024 Activefexofenadine hydrochloride 180 mg oral tablet (20 sources)Histamine-1 Receptor AntagonistStart: 64-12-9934hnwx 1 tablet by mouth at bedtimeFexofenadine 180 mg tablet Active 180 MG PO Bedtime October 09, 2024 1:00am allergy symptoms Complies with drug therapyStart: 05-14-2024 End: 23-79-6440phtr 1 tablet by mouth once dailyfexofenadine (Deb) 180 MG tablet Indications: Environmental and seasonal allergies Take 1 tablet (180 mg) by mouth Daily 90 tablet 1 05/14/2024 ActiveStart: 42-94-9765riuj 1 tablet by mouth in the morningfexofenadine (Deb) 180 MG tablet Take 180 mg by mouth in the morning. 0 07/18/2023 ActiveFREESTYLE ANIBAL 3 PLUS SENSOR (1 source)Start: 23-67-2171LLGOQXXFF ANIBAL 3 PLUS SENSOR FREESTYLE ANIBAL 3 PLUS SENSOR, USE 1 SENSOR BY OTHER ROUTE DAILY FOR 30 DAYS CHANGE SENSOR EVERY 15 DAYS Start Date: 09/26/24 Status: Orderedfurosemide 20 mg oral tablet (20 sources)Loop DiureticStart: 01-54-8070Amnbycaccb 20 mg tablet Active 20 MG PO Every 48 hours October 09, 2024 1:00am Complies with drug therapyStart: 18-19-7420fbbs 1 tablet by mouth once dailyfurosemide 20 mg Tab 20 mg = 1 tab(s), Oral, Daily, # 90 tab(s), Refills(s) 0 Start Date: 09/26/24 Status: OrderedStart: 03-28-2024 End: 24-75-5280ezvc 1 tablet by mouth every other dayfurosemide (Lasix) 20 MG tablet Indications: Bilateral lower extremity edema Take 1 tablet (20 mg) by mouth every other day 45 tablet 1 07/24/2024 ActiveStart: 11-16-2023 End: 06-29-5757ckox 1 tablet by mouth every other dayfurosemide (Lasix) 20 MG tablet Indications: Bilateral lower extremity edema Take 1 tablet (20 mg) by mouth every other day 45 tablet 1 11/16/2023 02/14/2024 Activetake 1 tablet by mouth every twenty-four hoursFurosemide 20 MG 1 tablet Orally Once a day Active gabapentin 300 mg oral capsule (20 sources)Anti-epileptic AgentStart: 01-25-2024 End: 60-04-8181qgcc 1 capsule by mouth three times dailyGabapentin 300 mg capsule Active 300 MG PO Three times daily October 09, 2024 1:00am Complies with drug therapyStart: 88-45-6513wfuv 1 capsule by mouth in the morning, then take 1 capsule by mouth in the evening, then take 1 capsule by mouth at bedtime gabapentin (Neurontin) 300 MG capsule Take 300 mg by mouth in the morning and 300 mg in the eveningand 300 mg before bedtime. 0 07/18/2023 ActiveglyBURIDE 5 mg oral tablet (20 sources)SulfonylureaStart: 44-66-1165eomt 1 tablet by mouth in the evening Glyburide 5 mg tablet Active 5 MG PO .COMPLEX October 09, 2024 1:00am diabetes 5 mg orally 2 tablets in am, 1 tablet in pm; Complies with drug therapy Start: 01-17-2024 End: 23-93-1866hlcEQYHRF (Diabeta) 5 MG tablet Indications: Type 2 diabetes mellitus with insulin therapy (HCC) 2 pills in the am, and 1 pill in the pm 270 tablet 1 07/24/2024 Activetake 2 tablets by mouth in the morningglyBURIDE (Diabeta) 5 MG tablet Take 10 mg by mouth in the morning and 10 mg before bedtime. 0 Activetake 1 tablet by mouth every twenty-four hoursglyBURIDE 5 MG 1 tablet Orally Once a day Activeibuprofen 600 mg oral tablet (20 sources)Nonsteroidal Anti-inflammatory DrugStart: 78-96-9498xoyvwsjjn 600 MG tablet 07/17/2024 ActiveStart: 04-17-2024 End: 96-77-5756huql 1 tablet by mouth onceibuprofen 600 MG tablet TAKE 1 TABLET (600 MG) BY MOUTH EVERY 12 (TWELVE) HOURS IF NEEDED FOR MODERATE PAIN 07/17/2024 Activetake 1 tablet by mouth twice daily as neededibuprofen 600 MG tablet TAKE 1 TABLET BY MOUTH TWICE DAILY NEEDED WITH FOOD 0 Active3 ml insulin lispro 25 unt/ml / insulin lispro protamine, human 75 unt/ml pen injector (20 sources)Insulin AnalogStart: 24-29-0124ozewuh 20 [IU] by subcutaneous injection once dailyInsulin Lispro Protamine-Insulin Lispro Mix75/25 KwikPen subcutaneous suspension See Instructions, 20units subq once a day, # 15 mL, Refills(s) 0, other reason (Rx) Start Date: 10/30/24 Status: OrderedStart: 06-94-5428Uoetgwk Lispro Protamin-Lispro 100 unit/mL (75-25) insulin pen Active 28 UNIT SUBCUT Bedtime October 09, 2024 1:00am diabetes Complies with drug therapyStart: 29-73-2945Dpyhh: 01-17-2024 End: 82-35-8286wcwtzfg lispro protamine-insulin lispro (HumaLOG MIX 75/25 KWIKPEN) (75-25) 100 UNIT/ML injection Indications: Type 2 diabetes mellitus with insulin therapy (HCC) INJECT 53 UNITS SUBCUTANEOUSLY ONCE DAILY 18 each 1 07/22/2024 ActiveStart: 61-14-9002GmmuXQU MIX 75/25 KWIKPEN (75-25) 100 UNIT/ML injection INJECT 53 UNITS SUBCUTANEOUSLY ONCE DAILY ActiveInsulin Lispro Protamin-Lispro 100 unit/mL (75-25) insulin pen (3 sources)Start: 85-27-6655Wgybuoc Lispro Protamin-Lispro 100 unit/mL (75-25) insulin pen Active 28 UNIT SUBCUT Once October 09, 2024 1:00amlamoTRIgine 100 mg oral tablet (20 sources)Mood Stabilizer, Anti-epileptic AgentStart: 55-98-2830qybm 1 tablet by mouth at bedtimeLamotrigine 100 mg tablet Active 100 MG PO Bedtime October 09, 2024 1:00am Complies with drug therapyStart: 02-40-5805asgcZBMipue (LaMICtal) 25 MG tablet TAKE 1 TABLET AT NIGHT FOR 14 DAYS AND THEN 2 TABLETS AT NIGHT 07/09/2024 ActiveStart: 56-41-8543ifla 2 tablets by mouth once daily lamoTRIgine (LaMICtal) 150 MG tablet Take 2 tablets by mouth Daily 08/14/2023 ActivelamoTRIgine 150 MG Oral for 30 Days Activelosartan potassium 25 mg oral tablet (20 sources)Angiotensin 2 Receptor BlockerStart: 28-14-2920sgmc 1 tablet by mouth at bedtimeLosartan 25 mg tablet Active 25 MG PO Bedtime September 12, 2025 12:00am Complies with drug therapyStart: 07-17-2025 End: 55-52-7527tgxu 1 tablet by mouth once dailyLosartan 25 mg tablet Discontinued 0 .ROUTE .COMPLEX 90 July 17, 2025 1:11pm September 12, 2:23pm TAKE 1 TABLET BY MOUTH EVERY DAYStart: 04-15-2025 End: 14-16-0496ejjl 1 tablet by mouth once dailyLosartan 25 mg tablet Discontinued 25 MG PO Daily 90 April 15, 2025 1:23pm July 17, 2025 1:1 1pmStart: 04-15-2025 End: 31-26-5472Ycvlulmx 50 mg tablet Discontinued 25 MG PO Daily April 15, 2025 1:23pm April 15, 2025 1:24pmStart: 96-05-4514ywqm 2 tablets by mouth once daily losartan 50 mg Tab 100 mg = 2 tab(s), Oral, Daily, Refills(s) 0 Start Date: 09/26/24 Status: OrderedStart: 07-20-2024 End: 15-19-3635oorj 1 tablet by mouth once dailyLosartan 50 mg tablet Discontinued 50 MG PO Daily October 09, 2024 1:00am April 15, 2025 1:23pm Start: 04-17-2024 End: 96-44-8631lpzplqmp (Cozaar) 25 MG tablet Indications: Primary hypertension (CMS/HCC) , Stage 3 chronic kidneydisease, unspecified whether stage 3a or 3b CKD (HCC) (CMS/HCC) , Type 2 diabetes mellitus with peripheral neuropathy (CMS/HCC) Take 1 tablet (25 mg) by mouth Daily 90 tablet 1 07/17/2024 10/15/2024 ActiveStart: 10-24-2023 End: 86-62-3363deoz 1 tablet by mouth in the morninglosartan (Cozaar) 50 MG tablet Indications: Primary hypertension (CMS/HCC) Take 1 tablet (50 mg) bymouth in the morning. 90 tablet 1 10/24/2023 01/22/2024 Activetake 1 tablet by mouth every twenty-four hoursLosartan Potassium 50 MG 1 tablet Orally Once a day Activelurasidone hydrochloride 20 mg oral tablet (20 sources)Atypical AntipsychoticStart: 09-19-3483xyvl 1 tablet by mouth once dailylurasidone 120 mg oral tablet 120 mg = 1 tab(s), Oral, Daily, Refills(s) 0 Start Date: 09/26/24 Status: OrderedStart: 98-06-8099yqmn 1 tablet by mouth at bedtimeLurasidone 80 mg tablet Active 80 MG PO Bedtime October 09, 2024 1:00am Complies with drug therapyStart: 35-16-7566xpum 1 tablet by mouth at bedtimeLurasidone 20 mg tablet Active 20 MG PO Bedtime October 09, 2024 1:00am Complies with drug therapymetFORMIN hydrochloride 1000 mg oral tablet (20 sources)BiguanideStart: 05-24-2024 End: 50-24-5778brfk 1 tablet by mouth twice dailyMetformin 1,000 mg tablet Active 1000 MG PO Twice daily October 09, 2024 1:00am Complies with drug therapyStart: 11-16-2023 End: 07-28-2339itxt 1 tablet by mouth in the morningmetFORMIN (Glucophage) 1000 MG tablet Indications: Type 2 diabetes mellitus with peripheral neuropathy (CMS/HCC) Take 1 tablet (1,000 mg) by mouth in the morning and 1 tablet (1,000 mg) before bedtime. Dionisio. 180 tablet 1 11/16/2023 02/14/2024 Activetake 1 tablet by mouth every twelve hoursmetFORMIN HCl 500 MG 1 tablet with meals Orally Twice a day ActiveMisc. Devices (Raised Toilet Seat) mis (4 sources)Start: 10-25-2023 End: 48-75-5540Nwvz. Devices (Raised Toilet Seat) [facility] Indications: Pre-op examination , Primary osteoarthritis ofright hip 1 Device in the morning. 1 each 0 10/25/2023 10/24/2024 Activenaproxen 500 mg oral tablet (9 sources)Nonsteroidal Anti-inflammatory DrugStart: 95-44-3933pvhx 1 tablet by mouth twice dailyNaproxen 500 mg tablet Active 500 MG PO Twice daily 60 30 2 June 25, 2025 12:00am Complies withdrug therapypioglitazone 30 mg oral tablet (20 sources)Peroxisome Proliferator Receptor alpha Agonist, Peroxisome Proliferator Receptor gamma Agonist, ThiazolidinedioneStart: 04-01-2024 End: 77-96-0945pwjd 1 tablet by mouth at bedtimePioglitazone 30 mg tablet Active 30 MG PO Bedtime October 09, 2024 1:00am Complies with drug therapyStart: 12-25-2023 End: 40-58-5370bgja 1 tablet by mouth in the morningpioglitazone (Actos) 30 MG tablet Indications: Type 2 diabetes mellitus with peripheral neuropathy ( CMS/HCC) Take 1 tablet (30 mg) by mouth in the morning. 90 tablet 1 12/28/2023 03/27/2024 Activetake 1 tablet by mouth every twenty-four hoursActos 15 MG 1 tablet Orally Once a day ActiveSemaglutide (18 sources)Start: 49-30-9223Mfcoxltyvla (Ozempic) 0.25 mg or 0.5 mg (2 mg/3 mL) pen injector Active 1 MG SUBCUT every week July 24, 2025 11:41am diabetes for 4 weeks Complies with drug therapyStart: 65-00-7967Zzfkx: 90-67-4658Wxxpcqpkhql (Ozempic) 0.25 mg or 0.5 mg (2 mg/3 mL) pen injector Active 1 MG SUBCUT every week July 24, 2025 11:41am for 4 weeks Complies with drug therapyStart: 10-09-2024 End: 83-94-6018Boqnxgvkiqe (Ozempic) 0.25 mg or 0.5 mg (2 mg/3 mL) pen injector Discontinued 0.5 MG SUBCUT every week October 09, 2024 1:00am July 24, 2025 11:41am for 4 weeksStart: 74-86-9463Gaunytrrkno (Ozempic) 0.25 mg or 0.5 mg (2 mg/3 mL) pen injector Active 0.5 MG SUBCUT every week October 09, 2024 1:00am for 4 weeks Complies with drug therapyStart: 70-42-4311Odllu: 10-09-2024 Semaglutide (Ozempic) 0.25 mg or 0.5 mg (2 mg/3 mL) pen injector Active 0.5 MG SUBCUT every week October 09, 2024 1:00am for 4 weeksSemaglutide,0.25 or 0.5MG/DOS, (Ozempic, 0.25 or 0.5 MG/DOSE,) 2 MG/3ML solution pen-injector (20 sources)Start: 21-57-6189Myviwlhnswa,0.25 or 0.5MG/DOS, (Ozempic, 0.25 or 0.5 MG/DOSE,) 2 MG/3ML solution pen-injector Indications: Type 2 diabetes mellitus with insulin therapy (HCC) 0.5 mg by Other route every 7 (seven) days for 28 days 3 mL 2 07/08/2024 ActiveStart: 66-44-0955Haswooaxgbn,0.25 or 0.5MG/DOS, (Ozempic, 0.25 or 0.5 MG/DOSE,) 2 MG/3ML solution pen-injector Indica tions: Type 2 diabetes mellitus with insulin therapy (CMS/HCC) 0.5 mg by Other route every 7 (seven) days for 28 days 3 mL 2 07/08/2024 ActiveStart: 07-08-2024 End: 11-20-4559Nhngoyhtnnv,0.25 or 0.5MG/DOS, (Ozempic, 0.25 or 0.5 MG/DOSE,) 2 MG/3ML solution pen-injector Indications: Type 2 diabetes mellitus with insulin therapy (CMS/HCC) 0.5 mg by Other route every 7 (seven) days for 28 days 3 mL 2 07/08/2024 08/05/2024 ActiveStart: 37-96-5276xuyegy 0.25 mg by subcutaneous injection every week, then inject 0.25 mg by subcutaneous injection every week, then inject 0.5 mg by subcutaneous injection every weekSemaglutide,0.25 or 0.5MG/DOS, (Ozempic, 0.25 or 0.5 MG/DOSE,) 2 MG/3ML solution pen-injector Indica tions: Type 2 diabetes mellitus with insulin therapy (CMS/HCC) Inject 0.25 mg under the skin 1 (one) time per week Start with 0.25mg once a week for 4 weeks, then increase to 0.5mg once a week 3 mL Activesertraline 100 mg oral tablet (20 sources)Serotonin Reuptake InhibitorStart: 65-02-6816dtmu 1 tablet by mouth at bedtimeSertraline 100 mg tablet Active 100 MG PO Bedtime October 09, 2024 1:00am Complies with drug therapyStart: 45-80-0914qkrt 1 tablet by mouth in the morningsertraline (Zoloft) 50 MG tablet Take 50 mg by mouth in the morning. 0 08/14/2023 ActivetiZANidine 4 mg oral tablet (20 sources)Central alpha-2 Adrenergic AgonistStart: 22-68-9696bpzk 1 tablet by mouth once daily at bedtime as neededTizanidine 4 mg tablet Active 4 MG PO Daily at bedtime as needed for muscle spasticity October 09, 2024 1:00am Complies with drug therapyStart: 08-30-2023 End: 78-44-5467goTFGilkcv (Zanaflex) 4 MG tablet Indications: Cervical pain (neck) At bedtime as needed for musclespasms 90 tablet 1 12/28/2023 Active Completed/Discontinued Medications MedicationDrug Class(es)DatesSig (Normalized)Sig (Original)azithromycin 250 mg oral tablet (6 sources)Macrolide AntimicrobialStart: 06-05-2024 End: 09-32-7098timhkhixaxpi (Zithromax) 250 MG tablet TAKE 2 TABLETS BY MOUTH TODAY, THEN TAKE 1 TABLET DAILY FOR 4 DAYS DIRECTED 06/05/2024 07/22/2024 Discontinued (Therapy completed)bupivacaine hydrochloride 2.5 mg/ml injectable solution (12 sources)Amide Local AnestheticStart: 02-11-2025 End: 57-01-7979yaoiumgwazq (Marcaine) 0.25 % injection 2.5 mgStart: 02-11-2025 End: 12-53-2146ruulqqlaxsp (Marcaine) 0.25 % injection 2.5 mgStart: 02-11-2025 End: 52.5 mg (1 mL), Injection, Once, On Mon02/11/25 at 1600, For 1 dose Start: 02-11-2025 End: 52.5 mg (1 mL), Injection, Once, On Mon02/11/25 at 1600, For 1 dose Start: 10-22-2024 End: 92-19-9353mxruzydirsj (Marcaine) 0.25 % injection 2.5 mgStart: 10-22-2024 End: 42.5 mg (1 mL), Injection, Once, On Mon10/22/24 at 1530, For 1 doseStart: 10-22-2024 End: 07-31-5934aqvnrmxfctz (Marcaine) 0.25 % injection 2.5 mgStart: 10-22-2024 End: 42.5 mg (1 mL), Injection, Once, On Mon10/22/24 at 1530, For 1 doseStart: 07-03-2024 End: 70-88-7138akkyuxsmwhp (Marcaine) 0.25 % injection 2.5 mgStart: 07-03-2024 End: 19-98-5938nryzocwlref (Marcaine) 0.25 % injection 2.5 mgStart: 07-03-2024 End: 42.5 mg (1 mL), Injection, Once, On Mon07/03/24 at 1415, For 1 doseStart: 07-03-2024 End: 42.5 mg (1 mL), Injection, Once, On Mon07/03/24 at 1415, For 1 dosechlorhexidine gluconate 1.2 mg/ml mouthwash (20 sources)Start: 83-50-4151aeebjpicjnlhv 0.12% mucous membrane liquid RINSE WITH 1/2 OUNCE TWICE A DAY AFTER BREAKFAST AND BEFORE BEDTIME *SPIT OUT DO NOT SWALLOW* Start Date: 09/26/24 Status: OrderedStart: 07-18-2024 End: 83-81-3332ynhd 1 mL by mouth twice dailyChlorhexidine Gluconate 0.12 % mouthwash Discontinued 15 ML PO Twice daily October 09, 2024 1:00am September 12, 2025 1:25pmStart: 51-33-1825objijzesvyffw (Peridex) 0.12 % solution RINSE WITH 1/2 OUNCE TWICE A DAY AFTER BREAKFAST AND BEFOREBEDTIME *SPIT OUT DO NOT SWALLOW* 07/18/2024 Activecyclobenzaprine hydrochloride 5 mg oral tablet (9 sources)Muscle RelaxantStart: 06-25-2025 End: 22-43-0413twlm 1 tablet by mouth three times daily as needed for muscle spasmsCyclobenzaprine 5 mg tablet Discontinued 5 MG PO Three times daily as needed for muscle spasm 20 7 0 June 25, 2025 12:00am September 12, 2025 1:25pmdexamethasone phosphate 10 mg/ml injectable solution (12 sources)CorticosteroidStart: 02-11-2025 End: 66-99-6200xxxUAUOHubkjn sod phos (Decadron) injection 10 mgStart: 02-11-2025 End: 74-09-4072vkjBLTPDsaotb sod phos (Decadron) injection 10 mgStart: 02-11-2025 End: 43-57-259656 mg (1 mL), Injection, Once, On Mon02/11/25 at 1600, For 1 dose Start: 02-11-2025 End: 27-23-536205 mg (1 mL), Injection, Once, On Mon02/11/25 at 1600, For 1 dose Start: 10-22-2024 End: 54-77-8762iphHNXJFcbcsk sod phos (Decadron) injection 10 mgStart: 10-22-2024 End: 15-83-821198 mg (1 mL), Injection, Once, On Mon10/22/24 at 1530, For 1 doseStart: 10-22-2024 End: 44-81-9481pmjOLBMEnbyed sod phos (Decadron) injection 10 mgStart: 10-22-2024 End: 86-75-335807 mg (1 mL), Injection, Once, On Mon10/22/24 at 1530, For 1 doseStart: 07-03-2024 End: 94-30-5483wrlASMQSxjvmi sod phos (Decadron) injection 10 mgStart: 07-03-2024 End: 65-84-4502apoAWFXPstxis sod phos (Decadron) injection 10 mgStart: 07-03-2024 End: 99-73-416629 mg (1 mL), Injection, Once, On Mon07/03/24 at 1415, For 1 dose Start: 07-03-2024 End: 76-77-758862 mg (1 mL), Injection, Once, On Mon07/03/24 at 1415, For 1 dose iohexol (OMNIPaque) 180 MG/ML injection 2 mL (4 sources)Start: 07-03-2024 End: 04-77-3380fegnjvm (OMNIPaque) 180 MG/ML injection 2 mLStart: 07-03-2024 End: mL, Injection, Once in imaging, Starting on Mon07/03/24 at 1407, For 1 doseiohexol (OMNIPaque) 300 MG/ML injection 2 mL (8 sources)Start: 02-11-2025 End: 84-56-1262pqeeizg (OMNIPaque) 300 MG/ML injection 2 mLStart: 02-11-2025 End: mL, Injection, Once in imaging, Starting on Mon02/11/25 at 1554, For 1 doseStart: 10-22-2024 End: 03-54-9501cjbghew (OMNIPaque) 300 MG/ML injection 2 mLStart: 10-22-2024 End: mL, Injection, Once in imaging, Starting on Mon10/22/24 at 1523, For 1 doseoxyCODONE hydrochloride 5 mg oral tablet (20 sources)Opioid AgonistStart: 06-04-2025 End: 52-59-2018bowr 1 tablet by mouth every four to six hours as needed for pain Oxycodone 5 mg tablet Discontinued 5 MG PO EVERY 4-6 HOURS as needed for pain 30 7 0 July 08, 2025 September 12, 2025 1:28pm Fracture of proximal end of left humerus dispense #30 (thirty) Dx: S42.A left humerus fracture pimecrolimus 10 mg/ml topical cream (14 sources)Calcineurin Inhibitor ImmunosuppressantStart: 10-09-2024 End: 02-59-6994Skhbawnxsfsi 1 % cream Discontinued APPLIC TOPICAL October 09, 2024 1:00am September 12, 2025 1:28pmStart: 89-69-7167Ajejzflntbwb 1 % cream Active APPLIC TOPICAL October 09, 2024 1:00amStart: 96-97-8481xtuobujpunhe Top Crm 30 gram Refill(s) 0 Start Date: 09/26/24 Status: OrderedtraMADol hydrochloride 50 mg oral tablet (20 sources)Opioid AgonistStart: 06-25-2025 End: 88-00-5078qyoo 1 tablet by mouth every four hoursTramadol 50 mg tablet Discontinued 50 MG PO Q4H 42 7 0 September 12, 2025 10:46am September 12, 2025 1:30pm Fracture of proximal end of left humerus left humerus fracture S42.A dispense 42 (forty-two) tablets Problems Active Problems Problem ClassificationProblemDateDocumented DateEpisodic/ChronicAcquired foot deformities (11 sources)Hammer toe; Translations: [Other hammer toe(s) (acquired), right foot]59-44-4333ZlsoaezOkkavcu kidney disease (20 sources)Chronic kidney disease stage 3; Translations: [Chronic kidney disease (CKD), stage III (moderate) ([facility])]Onset: 715675-97-3180Umwnmzv Chronic kidney disease (1 source)Chronic kidney disease; Translations: [Chronic kidney disease, stage 3b]Onset: 77-25-7236Tuudcevqaa and other anemia (6 sources)Anemia, unspecified; Translations: [Anemia, unspecified]Onset: 78-81-8836JgncvzmwOyvadftgfs and other anemia (14 sources)Anemia; Translations: [Anemia, unspecified]71-42-6180Nctvgjwc Diabetes mellitus with complications (20 sources)Type 2 diabetes mellitus with diabetic neuropathy, unspecified; Translations: [Type 2 diabetes mellitus with hyperglycemia]Onset: 07-11-2022 Resolved: 591458-89-2800SbjhqeiUsbzrksk mellitus without complication (20 sources)Type 2 diabetes mellitus; Translations: [Type 2 diabetes mellitus without complications]Onset: 057407-07-0547ScwcvnpGlcczhi on above:linked DM with HLD per OP CDI policy.Disorders of lipid metabolism (20 sources)Hyperlipidemia; Translations: [Hyperlipidemia, unspecified]Onset: 666154-55-8672CwvodckXheitvszd hypertension (20 sources)Essential hypertension; Translations: [Essential (primary) hypertension]Onset: 513107-29-9059NqpilakJwxuaera of upper limb (20 sources)Unspecified fracture of upper end of left humerus, initial encounter for closed fracture; Translations: [Fracture of proximal end of left humerus] Onset: 780230-80-2549LadbmzdvFtxqvceygnox with complications and secondary hypertension (15 sources)Hypertensive renal disease; Translations: [Hypertensive chronic kidney disease with stage 1 throughstage 4 chronic kidney disease, or unspecified chronic kidney disease]44-41-8970TiaiyzzUwvr disorders (1 source)Bipolar nbrgodlu05-44-2405GjasirgPlnewxphthiphm (20 sources)Osteoarthritis of hip; Translations: [Osteoarthritis of hip, unspecified]Onset: 003702-00-2904SrazrnwMprls acquired deformities (6 sources)Equinus contracture of the ankle; Translations: [Contracture, left ankle]93-75-0515YclgavjSzjmc acquired deformities (6 sources)Equinus contracture of the ankle; Translations: [Contracture, right ankle]81-79-4388PzprmilSlgwm connective tissue disease (2 sources)History of total hip arthroplasty; Translations: [Presence of right artificial hip joint]77-26-6211XvgtgooSyfsd connective tissue disease (4 sources)History of total replacement of right hip joint; Translations: [Presence of right artificial hip joint]66-48-7970HoxxwpaNptfe connective tissue disease (1 source)Presence of unspecified artificial shoulder joint; Translations: [Presence of unspecified artificial shoulder joint]Onset: 58-08-2233MngcgkdQhunv connective tissue disease (1 source)Muscle weakness (generalized); Translations: [MUSCLE WEAKNESS GENERALIZED]Onset: 19-47-6531GpwpuokmGepgv connective tissue disease (1 source)Abnormal posture; Translations: [ABNORMAL POSTURE]Onset: 03-08-2023 EpisodicOther connective tissue disease (2 sources)Other symptoms and signs involving the musculoskeletal system; Translations: [Other musculoskeletalsymptoms referable to limbs]10-16-2024 EpisodicOther connective tissue disease (4 sources)Pain in both feet; Translations: [Pain in right foot]07-25-2024 EpisodicOther connective tissue disease (8 sources)Muscle pain; Translations: [Myalgia, unspecified site]07-24-2025 EpisodicOther nervous system disorders (20 sources)Polyneuropathy; Translations: [Polyneuropathy, unspecified]Onset: 548409-81-8129UhsrpupHiqdm nervous system disorders (20 sources)Disorder of muscle; Translations: [Myopathy, unspecified]Onset: 876439-84-1505LjjbgwzOczft nervous system disorders (20 sources)Chronic pain; Translations: [Other chronic pain]Onset: 04-17-2024 43-29-5461ZxsuoxwEizmz nervous system disorders (9 sources)Neuropathy; Translations: [Polyneuropathy, unspecified]09-12-2024 ChronicOther nervous system disorders (1 source)Other abnormalities of gait and mobility; Translations: [OTHER ABNORMALITIES GAIT AND MOBILITY]Onset: 70-84-1877AjshnegaKvcne nervous system disorders (1 source)Unspecified abnormalities of gait and mobility; Translations: [UNS ABNORMALITIES GAIT AND MOBILITY]Onset: 05-48-3285DxswesvaPrmum non-traumatic joint disorders (12 sources)Charcot's joint of foot; Translations: [Charcot's joint, left ankle and foot]82-22-5506BcgnsxsSvvxo non-traumatic joint disorders (2 sources)Pain in right knee; Translations: [PAIN IN RIGHT KNEE]Onset: 75-53-9736XfmxwvhrYwuwb non-traumatic joint disorders (2 sources)Pain in right hip joint; Translations: [Pain in right hip]12-22-2023 EpisodicOther non-traumatic joint disorders (6 sources)Hip pain; Translations: [Pain in right hip]43-78-9962DoulpjkoHrsll nutritional; endocrine; and metabolic disorders (4 sources)Morbid obesity; Translations: [Morbid (severe) obesity due to excess calories]Onset: 896367-02-7377GcccdyoRmrpy nutritional; endocrine; and metabolic disorders (20 sources)Obesity caused by energy imbalance; Translations: [Morbid (severe) obesity due to excess calories]Onset: 802284-67-6890AthltamTwrzw nutritional; endocrine; and metabolic disorders (20 sources)Body mass index 40+ - severely obese; Translations: [Body mass index (BMI) 40.0-44.9, adult]Onset: 451629-20-5960VycmupxHcwbx screening for suspected conditions (not mental disorders or infectious disease) (5 sources)Encounter for screening for malignant neoplasm of rectum; Translations: [Encounter for screening for malignant neoplasm of prostate]Onset: 73-15-5947UbdnyqwlFyski skin disorders (11 sources)Callosity; Translations: [Corns and callosities]97-15-0967Oemtunxu Other upper respiratory disease (20 sources)Allergic disposition; Translations: [Other allergic rhinitis]Onset: 208679-98-6026JapghnzBqhbyxrk codes; unclassified (20 sources)Obstructive sleep apnea of adult; Translations: [Obstructive sleep apnea (adult) (pediatric)]Onset: 368834-68-6990KnvlsnaQmbjnxqktdz; intervertebral disc disorders; other back problems (20 sources)Other intervertebral disc degeneration, lumbar region; Translations: [Degeneration of lumbar intervertebral disc]Onset: 907927-22-0898Adioyzr Spondylosis; intervertebral disc disorders; other back problems (20 sources)Radiculopathy, lumbar region; Translations: [Neck pain]Onset: 93-26-3407IlenkzhaWbqrsclwl cerebral ischemia (20 sources)Transient cerebral ischemia; Translations: [Transient cerebral ischemic attack, unspecified]Onset: 654654-34-2763OwfrffvMztwxsuiydoc (3 sources)LOW BACK PAIN, UNSPECIFIED; Translations: [LOW BACK PAIN, UNSPECIFIED]Onset: 98-11-4240Osknlchawppq (1 source)CHRN KIDNEY DISEASE STG 3 UNSP; Translations: [CHRN KIDNEY DISEASE STG 3 UNSP]Onset: 74-58-2418Wjmgesosgnbn (1 source)Long-term current use of iobwvvj85-56-2661Lqnltct on above:Current Medication List includes insulin lispro 75/25. added per OP CDI policy. Unclassified (1 source)Xmc-plgtji09-21rbqhzt40-23-8935 Past or Other Problems Problem ClassificationProblemDateDocumented DateEpisodic/ChronicAcquired foot deformities (20 sources)Adductus deformity of foot; Translations: [Varus deformity, not elsewhere classified, left ankle]Onset: 864474-08-0011EgfitfmvGfttika and fatigue (20 sources)Asthenia; Translations: [Weakness]Onset: EpisodicMood disorders (20 sources)Mood disordersOnset: 267963-43-0262Qlskxhh (20 sources)Tinea cruris; Translations: [Tinea cruris]Onset: 10-23-2023 82-16-3412YrqyuotkKyyxuakgqxn deficiencies (20 sources)Deficiency of other specified B group vitamins; Translations: [Vitamin deficiency]Onset: 75-24-0307XmzjrmfjXpioy aftercare (20 sources)Long-term current use of insulin; 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]Onset: 961675-29-3454AhjxsxenLhars connective tissue disease (20 sources)Swelling of left foot; Translations: [Other specified soft tissue disorders]Onset: 10-23-2023 Resolved: 503374-20-1334YbegmnutRptiu connective tissue disease (20 sources)Bilateral plantar fasciitis; Translations: [Plantar fascial fibromatosis]Onset: 433572-07-3259KbaqjhznGgvrv connective tissue disease (20 sources)Recurrent falls ; Translations: [Repeated falls]Onset: 03-01-2024 34-09-9481WynckufhTnenu inflammatory condition of skin (20 sources)Seborrheic dermatitis; Translations: [Seborrheic dermatitis, unspecified]Onset: 646742-65-4817GyzdatpaKskvq nervous system disorders (20 sources)Finding of hand region; Translations: [Tremor, unspecified]Onset: 958223-28-2613ZzzknmuoErnfe nervous system disorders (20 sources)Paresthesia; Translations: [Paresthesia of skin]Onset: 03-01-2024 61-15-6628YcqtnuxiMvjot nutritional; endocrine; and metabolic disorders (20 sources)Body mass index 30+ - obesity; Translations: [Obesity, unspecified] Onset: 10-23-2023 Resolved: 988998-20-0213PpxgofpUbvyi skin disorders (20 sources)Skin lesion; Translations: [Disorder of the skin and subcutaneous tissue, unspecified]Onset: 10-23-2023 Resolved: 119969-61-4586QyxubjnmQvvkjnsrk (except that caused by tuberculosis or sexually transmitted disease) (20 sources)Pneumonia; Translations: [Pneumonia, unspecified organism]Onset: 10-23-2023 Resolved: 433217-66-0225IksreulhGvtenxej codes; unclassified (20 sources)Sleep apnea; Translations: [Sleep apnea, unspecified]Onset: 02-28-2024 Resolved: 769208-57-4249FchqvhpBjivpgrx codes; unclassified (20 sources)Bilateral lower limb edema; Translations: [Localized edema]Onset: 974036-06-9242DkorscxyHgsfduib codes; unclassified (20 sources)Edema of lower extremity; Translations: [Localized edema]Onset: 12-28-2023 Resolved: 069330-76-7279GbpjzlheTpgvdromiaaw (1 source)LOW BACK PAIN, UNSPECIFIED; Translations: [LOW BACK PAIN, UNSPECIFIED] Onset: 12-44-5518Dzaesgbhjydz (20 sources)Onset: Results Test NameValueInterpretationReference RangeFacilityBasic Metabolic Panelon 28-81-5482Plqwm gap [Moles/Vol]9.3 mmol/LNormal6.0-15.0The [facility] Physician GroupComment on above:Performed By: #### GLULS #### Point of Care testing ,Calcium [Mass/Vol]8.2 mg/dLLow8.6-10.3The [facility] Physician GroupComment on above:Performed By: #### GLULS #### Point of Care testing ,Chloride [Moles/Vol]104 mmol/YNsadei97-891Gin [facility] Physician GroupComment on above:Performed By: #### GLULS #### Point of Care testing ,CO2 [Moles/Vol]28.1 mmol/ULeddpj36.0-31.0The [facility] Physician GroupComment on above:Performed By: #### GLULS #### Point of Care testing ,Creatinine [Mass/Vol]1.15 mg/dLNormal0.70-1.30The [facility] Comment on above:Performed By: #### GLULS #### Point of Care testing ,Creatinine Clr Calc Nuwwracc38.81NormalThe [facility] Physician GroupComment on above:Result Comment: PERFORMED BY: [place] [address] [place] [address] PATHOLOGIST [employer] CONSULTANT SHAWNA LESTER M.D.Performed By: #### GLULS #### Point of Care testing ,GFR/1.73 sq M.predicted MDRD (S/P/Bld) [Vol rate/Area]mL/min/{1.73_m2}NormalThe [facility] Physician GroupComment on above:Performed By: #### GLULS #### Point of Care testing ,Glucose [Mass/Vol]129 mg/hYJpop33-659Wyo [facility] Physician GroupComment on above:Result Comment: Random Glucose Reference Range is dependent on time and content of last meal. Glucose of more than 200 mg/dL in a nonstressed, ambulatory subject supports the diagnosis of Diabetes Mellitus. ADA recommended reference rangePerformed By: #### GLULS #### Point of Care testing ,Potassium [Moles/Vol]4.4 mmol/LNormal3.5-5.1The [facility] Comment on above:Performed By: #### GLULS #### Point of Care testing ,Sodium [Moles/Vol]137 mmol/PYiesvm506-934Gxg [facility] Physician GroupComment on above:Performed By: #### GLULS #### Point of Care testing ,Urea nitrogen [Mass/Vol]19 mg/dLNormal7-25The [facility] Physician GroupComment on above:Performed By: #### GLULS #### Point of Care testing ,Complete Blood Count Auto Diffon 78-62-9962Glkzniyeh (Bld) [#/Vol]0.0 10*3/uL Normal0.0-0.2The [facility] Physician GroupComment on above:Result Comment: PERFORMED BY: [facility] [place] [address] PATHOLOGIST [employer] CONSULTANT SHAWNA LESTER M.D.Performed By: #### GLULS #### Point of Care testing ,Basophils/100 WBC (Bld)0.5 %Normal.The [facility] Physician GroupComment on above:Performed By: #### GLULS #### Point of Care testing ,Eosinophils (Bld) [#/Vol]0.0 10*3/uLNormal0.0-0.45The [facility] Comment on above:Performed By: #### GLULS #### Point of Care testing ,Eosinophils/100 WBC (Bld)0.2 %Normal.The [facility] Physician GroupComment on above:Performed By: #### GLULS #### Point of Care testing ,Erythrocyte distribution width (RBC) [Ratio]13.2 %Dyrtzq36.0-14.8The [facility] Physician GroupComment on above:Performed By: #### GLULS #### Point of Care testing ,Hematocrit (Bld) [Volume fraction]29.5 %Low38.8-50.0The [facility] Physician GroupComment on above:Performed By: #### GLULS #### Point of Care testing ,Hemoglobin (Bld) [Mass/Vol]10.2 g/dLLow13.0-17.0The [facility] Comment on above:Performed By: #### GLULS #### Point of Care testing ,Lymphocytes (Bld) [#/Vol]0.9 10*3/uLLow1.00-4.8The [facility] Comment on above:Performed By: #### GLULS #### Point of Care testing ,Lymphocytes/100 WBC (Bld)13.4 %Normal.The [facility] Physician GroupComment on above:Performed By: #### GLULS #### Point of Care testing ,MCH (RBC) [Entitic mass]34.2 euAwqslh62.5-35.2The [facility] Comment on above:Performed By: #### GLULS #### Point of Care testing ,MCV (RBC) [Entitic vol]98.5 nCRtwphx45.5-101The [facility] Comment on above:Performed By: #### GLULS #### Point of Care testing ,Mean Corpuscular HGB Conc34.7 g/aSHjrkim03.5-35.6The [facility] Comment on above:Performed By: #### GLULS #### Point of Care testing ,Monocytes (Bld) [#/Vol]0.8 10*3/uLNormal0.0-0.8The [facility] Comment on above:Performed By: #### GLULS #### Point of Care testing ,Monocytes/100 WBC (Bld)11.5 %Normal.The [facility] Physician GroupComment on above:Performed By: #### GLULS #### Point of Care testing ,Neutrophils (Bld) [#/Vol]5.0 10*3/uLNormal1.8-7.7The [facility] Physician [facility] Comment on above:Performed By: #### GLULS #### Point of Care testing ,Neutrophils/100 WBC (Bld)74.4 %Normal.The [facility] Physician GroupComment on above:Performed By: #### GLULS #### Point of Care testing ,NRBC%0.1 /100{WBC}Normal0-0.5The [facility] Physician GroupComment on above: Performed By: #### GLULS #### Point of Care testing ,Platelet mean volume (Bld) [Entitic vol]8.4 fLNormal6.6-10.1The [facility] Physician GroupComment on above:Performed By: #### GLULS #### Point of Care testing ,Platelets (Bld) [#/Vol]167 10*3/hVFxsfsx163-907Wsv [facility] Comment on above:Performed By: #### GLULS #### Point of Care testing ,RBC (Bld) [#/Vol]2.99 10*6/uLLow3.90-5.60The [facility] Physician GroupComment on above:Performed By: #### GLULS #### Point of Care testing ,WBC (Bld) [#/Vol]6.8 10*3/uLNormal4.1-10.5The [facility] Physician GroupComment on above:Performed By: #### GLULS #### Point of Care testing ,White Blood Count6.8 [CFU]/mLNormal4.1-10.5The [facility] Physician GroupComment on above:Performed By: #### GLULS #### Point of Care testing ,Glucose Poct Glucometerson 32-69-2190Bhetowz [Mass/Vol]158 mg/dLNormalThWeiser Memorial Hospital Physician [facility] HospitalComment on above:Result Comment: Random Glucose Reference Range is dependent on time and content of last meal. Glucose of more than 200 mg/dL in a nonstressed, ambulatory subject supports the diagnosis of Diabetes Mellitus. PERFORMED BY: [place] [address] PATHOLOGIST [employer] CONSULTANT SHAWNA LESTER M.D.Performed By: #### GLULS #### Point of Care testing ,XR shoulder LT min 2V*on 82-17-7804WW shoulder LT min 2V*[facility] [address] XRay Report Signed Patient: Robbin Bartlett MR#: [id number] : 1960 Acct:[id number] Age/Sex: 65 / M ADM Date: 09/23/25 Loc: Room: 1A7551-6 Type: ADM IN Attending Dr: Landen Hanley DO Copies to: Landen Hanley DO Ordering Provider: Landen Hanley DO Date of Service: 09/23/25 XR/XR shoulder LT min 2V*: Post op shoulder replacement XR shoulder LT min 2V* 09/23/2025 4:40 PM SIGNS AND SYMPTOMS: Postop left shoulder arthroplasty PROTOCOL: 3 views of the left shoulder COMPARISON: 09/12/2025 FINDINGS: There is reverse total left shoulder arthroplasty hardware which is new. No hardware complication or malalignment. Postoperative emphysema is noted. Hypertrophic changes are redemonstrated in the acromioclavicular joint. XR/XR shoulder LT min 2V* IMPRESSION: Interval reverse total left shoulder arthroplasty hardware placement without fracture or hardware complication. Impression dictated by: Garrison Blanco M.D. 09/24/2025 10:37 AM Dictation Location: [place] [address] Transcribed By: [facility] 09/24/25 1037 Dictated By: Garrison Blanco II, MD 09/24/25 1036 Signed By: 09/24/25 1037NoNov[facility] Phys[facility] HospitalGlucose Poct Glucometerson 06-61-9324Ldzyoqz [Mass/Vol]278 mg/dLM Health Fairview [facility] Medical CenterComment on above:Result Comment: Random Glucose Reference Range is dependent on time and content of last meal. Glucose of more than 200 mg/dL in a nonstressed, ambulatory subject supports the diagnosis of Diabetes Mellitus. PERFORMED BY: [address] [place] [id number] PATHOLOGIST [employer]MENT CONSULTANT SHAWNA LESTER M.D.Performed By: #### GLULS #### Point of Care testing ,Glucose [Mass/Vol]213 mg/dLSouth [facility] Physician [facility] HospitalComment on above: Result Comment: Random Glucose Reference Range is dependent on time and content of last meal. Glucose of more than 200 mg/dL in a nonstressed, ambulatory subject supports the diagnosis of Diabetes Mellitus. PERFORMED BY: [address] [place] [id number] PATHOLOGIST [employer] DE[employer]MENT CONSULTANT SHAWNA LESTER M.D.Performed By: #### GLULS #### Point of Care testing ,Iytetwv2Oug6: Cleaned MeterNoNovant Health Rowan Medical Center Physician Magee General HospitalComment on above: Result Comment: PERFORMED BY: [address] [place] [id number] PATHOLOGIST LE[employer] DE[employer]OYMENT CONSULTANT SHAWNA LESTER M.D.Performed By: #### GLULS #### Point of Care testing ,Glucose [Mass/Vol]188 mg/dLSouth Florida Baptist Hospital Physician GroupComment on above: Result Comment: Random Glucose Reference Range is dependent on time and content of last meal. Glucose of more than 200 mg/dL in a nonstressed, ambulatory subject supports the diagnosis of Diabetes Mellitus.Performed By: #### GLULS #### Point of Care testing ,Prusvfn9Dhe4: Cleaned MeterNoNovant Health Rowan Medical Center Physician GroupComment on above: Result Comment: PERFORMED BY: [address] [address] PATHOLOGIST LE[employer] DEPLOYMENT CONSULTANT SHAWNA LESTER M.D.Performed By: #### GLULS #### Point of Care testing ,Glucose [Mass/Vol]158 mg/dLSouth Florida Baptist Hospital Physician GroupComment on above: Result Comment: Random Glucose Reference Range is dependent on time and content of last meal. Glucose of more than 200 mg/dL in a nonstressed, ambulatory subject supports the diagnosis of Diabetes Mellitus.Performed By: #### GLULS #### Point of Care testing ,Alanine aminotransferase [Enzymatic activity/volume] in Serum or PlasmaOrdered By: Landen Hanley on 46-23-3630LFP [Catalytic activity/Vol]11 U/LNormal7-52 [facility] SystemComment on above:Performed By: #### CMP wRFX A1C, CBC, EBS A1C #### [facility] [address] [place] [id number] USAAlbumin [Mass/volume] in Serum or Plasma by Bromocresol green (BCG) dye binding methoOrdered By: Landen Hanley on 43-64-7335Bzfzprt BCG dye [Mass/Vol]4.0 g/dL3.5-5.7FKettering Health HamiltonAlkaline phosphatase [Enzymatic activity/volume] in Serum or PlasmaOrdered By: Landen Hanley on 71-90-4775ONG [Catalytic activity/Vol]87 U/NKujmip41-752NzfzvsuwuBlanchard Valley Health SystemComment on above:Result Comment: PERFORMED BY: [place] [address] PATHOLOGIST LE[employer] DE[employer]MENT CONSULTANT SHAWNA LESTER M.D.Performed By: #### CMP wRFX A1C, CBC, EBS A1C #### [facility] [address] [place] [address] USAAppearance of UrineOrdered By: Landen Hanley on 09-12-2025 Appearance (U)CloudyCritically abnormalCleSumma Health Wadsworth - [facility] Comment on above:Order Comment: Name Collection Type:: Clean-Voided Midstream Performed By: #### ADDONUAPLUS #### [facility] [address] [place] [address] USAAspartate aminotransferase [Enzymatic activity/volume] in Serum or PlasmaOrdered By: Landen Hanley on 83-55-5811HIP [Catalytic activity/Vol]14 U/RButwug11-61ItjykgttlBlanchard Valley Health SystemComment on above: Performed By: #### CMP wRFX A1C, CBC, EBS A1C #### [facility] [address] [place] [address] USABacteria [Presence] in Urine by AutomatedOrdered By: Landen Hanley on 70-35-8909Sjmodpow Auto Ql (U)None seen [HPF]None SeenBlanchard Valley Health SystemBasophils [#/volume] in Blood by Automated countOrdered By: Landen Hanley on 02-77-2267Cuvsbefcm (Bld) [#/Vol]0.0 10*3/uLNormal0.0-0.2 [facility] SystemComment on above:Result Comment: PERFORMED BY: [place] [address] PATHOLOGIST [employer]MENT CONSULTANT SHAWNA LESTER M.D.Performed By: #### CMP wRFX A1C, CBC, EBS A1C #### [facility] [address] [place] [address] USABasophils/100 leukocytes in Blood by Automated count Ordered By: Landen Hanley on 36-35-3175Kfppvxfcd/100 WBC (Bld)0.5 %Normal. [facility] SystemComment on above:Performed By: #### CMP wRFX A1C, CBC, EBS A1C #### [facility] [address] [place] [address] USABilirubin Test strip Ql (U)Ordered By: Landen Hanley on 05-98-9913Cthrsntfu Ql (U)NegativeNegativeBlanchard Valley Health System Bilirubin.total [Mass/volume] in Serum or PlasmaOrdered By: Landen Hanley on 89-67-0701Pfpkhjuzt [Mass/Vol]0.4 mg/dLNormal0.3-1.0[facility] SystemComment on above:Performed By: #### CMP wRFX A1C, CBC, EBS A1C #### [facility] [address] [place] [address] USACMP with reflex to A1Con 14-20-4706Kdrelre [Mass/Vol]4.0 g/dLNormal3.5-5.7The [facility] Physician GroupComment on above:Performed By: #### CMP wRFX A1C, CBC, EBS A1C #### [facility] [address] [place] [address] USAGFR/1.73 sq M.predicted MDRD (S/P/Bld) [Vol rate/Area] 46.237 mL/min/{1.73_m2}NormalThe [facility] Physician Magee General HospitalComment on above: Performed By: #### CMP wRFX A1C, CBC, EBS A1C #### [facility] [address] [place] [phone] USACalcium [Mass/volume] in Serum or PlasmaOrdered By: Landen Hanley on 50-49-6979Aomqmwc [Mass/Vol]8.8 mg/dLNormal8.6-10.3FKettering Health HamiltonComment on above:Performed By: #### CMP wRFX A1C, CBC, EBS A1C #### [facility] [address] [place] [phone] USACarbon dioxide, total [Moles/volume] in Serum or Plasma Ordered By: Landen Hanley on 60-61-2510KW2 [Moles/Vol]25.6 mmol/UPhxgyk51.0-31.0 [facility] SystemComment on above:Performed By: #### CMP wRFX A1C, CBC, EBS A1C #### [facility] [address] [place] [address] USAChloride [Moles/volume] in Serum or PlasmaOrdered By: Landen Hanley on 10-12-9799Rhajbxvn [Moles/Vol]106 mmol/TMaiord47-762CgjjkzbwfBlanchard Valley Health SystemComment on above:Performed By: #### CMP wRFX A1C, CBC, EBS A1C #### [facility] [address] [place] [address] USAColor of Urine by AutoOrdered By: Landen Hanley on 10-52-8992Avxwq (U)YellowNormalYellowBlanchard Valley Health SystemComment on above:Order Comment: Name Collection Type:: Clean-Voided MidstreamPerformed By: #### ADDONUAPLUS #### [facility] [address] [place] [address] USAComplete Blood Count Auto Diffon 34-50-0804Ywmd Corpuscular HGB Conc34.3 g/nJZypgcc68.5-35.6The [facility] Physician GroupComment on above:Performed By: #### CMP wRFX A1C, CBC, EBS A1C #### [facility] [address] [place] [address] USANRBC%0.1 /100{WBC}Normal0-0.5The [facility] Physician Group Comment on above:Performed By: #### CMP wRFX A1C, CBC, EBS A1C #### [facility] [address] [place] [address] USAWhite Blood Count5.4 [CFU]/mLNormal4.1-10.5The [facility] Physician GroupComment on above:Performed By: #### CMP wRFX A1C, CBC, EBS A1C #### [facility] [address] [place] [address] USACreatinine [Mass/volume] in Serum or PlasmaOrdered By: Landen Hanley on 47-41-6072Ymzlwmbsyy [Mass/Vol]1.62 mg/dLHigh0.70-1.30[facility] SystemComment on above:Performed By: #### CMP wRFX A1C, CBC, EBS A1C #### [facility] [address] [place] [address] USADipstick and Microscopicon 83-20-1941Rgmpslte,UrineNone SeenNormalNone SeenThe [facility] Physician GroupComment on above:Order Comment: Name Collection Type:: Clean-Voided MidstreamPerformed By: #### ADDONUAPLUS #### [place] [address] USABilirubin,UrineNegativeNormalNegativeThe [facility] Physician GroupComment on above:Order Comment: Name Collection Type:: Clean- Voided MidstreamPerformed By: #### ADDONUAPLUS #### [place] [address] USAGlucose Ql (U)NormalNormalNormalThe [facility] Physician GroupComment on above:Order Comment: Name Collection Type:: Clean-Voided MidstreamPerformed By: #### ADDONUAPLUS #### [place] [address] USAHyaline Casts,Vdzcs92-06Qmieas8-7Aiy [facility] Physician GroupComment on above:Order Comment: Name Collection Type:: Clean-Voided MidstreamPerformed By: #### ADDONUAPLUS #### [place] [address] USAMucus,Urine1+ [LPF]Critically abnormalThe [facility] Physician GroupComment on above:Order Comment: Name Collection Type:: Clean- Voided MidstreamResult Comment: PERFORMED BY: [place] [address] PATHOLOGIST LE[employer] DE[employer]OYMENT CONSULTANT SHAWNA LESTER M.D.Performed By: #### ADDONUAPLUS #### [place] [address] USANitrite,UrineNegativeNormalNegativeAdventhealth Altamonte Springs Physician GroupComment on above:Order Comment: Name Collection Type:: Clean-Voided MidstreamPerformed By: #### ADDONUAPLUS #### [place] [address] USAOccult Blood,UrineNegativeNormalNegativeThe [facility] Physician GroupComment on above:Order Comment: Name Collection Type:: Clean- Voided MidstreamResult Comment: PERFORMED BY: [place] [address] PATHOLOGIST LE[employer] DEPLOYMENT CONSULTANT SHAWNA LESTER M.D.Performed By: #### ADDONUAPLUS #### [place] [address] USARBC,Omdab4-1Nisyfy2-8Ckm [facility] Physician GroupComment on above:Order Comment: Name Collection Type:: Clean-Voided MidstreamPerformed By: #### ADDONUAPLUS #### [place] [address] USASpecificy [place],Urine1.887Hpxorf5.001-1.030The [facility] Physician GroupComment on above:Order Comment: Name Collection Type:: Clean- Voided MidstreamPerformed By: #### ADDONUAPLUS #### [place] [address] USASquamous Epithelial Cell,Uatst8-7Adntmw5-9Mik [facility] Physician GroupComment on above:Order Comment: Name Collection Type:: Clean- Voided MidstreamPerformed By: #### ADDONUAPLUS #### [place] [address] USAUrobilinogen,Urine4 mg/dLNormalNoNovant Health [facility] Center Physician GroupComment on above:Order Comment: Name Collection Type:: Clean- Voided MidstreamPerformed By: #### ADDONUAPLUS #### [place] [address] USAWBC,Jbmgw0-7Retzbf6-0Eig [facility] Physician GroupComment on above:Order Comment: Name Collection Type:: Clean-Voided MidstreamPerformed By: #### ADDONUAPLUS #### [place] [address] USAEBS [address]C with [address] Gluon 57-04-0948Grjwrhw [Mass/Vol]126 mg/dLNormNemours Children[facility] Clinic Hospital Physician GroupComment on above:Result Comment: PERFORMED BY: [place] [address] PATHOLOGIST LE[employer] DEPLOYMENT CONSULTANT SHAWNA LESTER M.D.Performed By: #### CMP wRFX A1C, CBC, EBS A1C #### [facility] [address] [place] [address] RIAMxB0l (Bld) [Mass fraction]6.0 %High4.3-5.6The [facility] Physician GroupComment on above:Result Comment: Increased risk for diabetes: 5.7 - 6.4 diabetes: >6.4 glycemic control for adults with diabetes: <7.0Performed By: #### CMP wRFX A1C, CBC, EBS A1C #### [facility] [address] [place] [address] USAECG 12 lead ECGon 14-57-3828ITO 12 lead ECGMAGRUDER HOSPITAL [place] [address] [place] [address] Electrocardiograph Report Signed Patient: Robbin Bartlett MR#: [id number] : 1960 Acct:[id number] Age/Sex: 65 / M ADM Date: 09/12/25 Loc: Room: Type: [facility] Attending Dr: Landen Hanley DO Ordering Provider: Landen Hanley DO Date of Service: 09/12/25 ECG/ECG 12 lead ECG: LEFT REVERSE TOTAL SHOULDER ARTHROPLASTY Copies to: Test Reason : Blood Pressure : */* mmHG Vent. Rate : 78 BPM Atrial Rate : 78 BPM P-R Int : 264 ms QRS Dur : 68 ms QT Int : 374 ms P-R-T Axes : 53 -7 49 degrees QTcB Int : 426 ms Sinus rhythm with 1st degree AV block Otherwise normal ECG When compared with ECG of 03-Mar-2014 19:04, [place] interval has increased Confirmed by Jaclyn Delacruz ([id number]) on 09/12/2025 4:57:11 PM Referred By: Electronically Signed By: Jaclyn Delacruz Transcribed By: MUS Signed By Jaclyn Delacruz MD 09/12/25 [address] Physician GroupEosinophils [#/volume] in Blood by Automated countOrdered By: Landen Hanley on 86-10-3527Xfjwaeslbal (Bld) [#/Vol]0.1 10*3/uLNormal0.0-0.45[facility] SystemComment on above:Performed By: #### CMP wRFX A1C, CBC, EBS A1C #### [facility] [address] [place] [address] USAEosinophils/100 leukocytes in Blood by Automated count Ordered By: Landen Hanley on 04-53-4758Fmpolueaxke/100 WBC (Bld)1.3 %Normal. [facility] SystemComment on above:Performed By: #### CMP wRFX A1C, CBC, EBS A1C #### [facility] [address] [place] [phone] USAEpithelial cells.squamous [#/area] in Urine sediment by Automated countOrdered By: Landen Hanley on 49-84-4728Anyavzoewy cells.squamous Auto (Urine sed) [#/Area]1-2 [HPF]0-2FKettering Health Hamilton Erythrocyte distribution width [Ratio] by Automated countOrdered By: Landen Hanley on 66-95-1460Otwiogxxpri distribution width (RBC) [Ratio]13.5 %Normal 12.0-14.8[facility] SystemComment on above:Performed By: #### CMP wRFX A1C, CBC, EBS A1C #### [facility] [address] [place] [address] USAErythrocytes [#/area] in Urine sediment by Automated count Ordered By: Landen Hanley on 59-84-7102CKC Auto (Urine sed) [#/Area]1-2 [HPF]0-4 [facility] SystemErythrocytes [#/volume] in Blood by Automated countOrdered By: Landen Hanley on 38-53-7160CDO (Bld) [#/Vol]3.29 10*6/uLLow 3.90-5.60[facility] SystemComment on above:Performed By: #### CMP wRFX A1C, CBC, EBS A1C #### [facility] [address] [place] [address] USAGlomerular filtration rate [Volume Rate/Area] in Serum, Plasma or Blood by CreatinineOrdered By: Landen Hanley on 29-94-5822Fagrqdrzzl filtration rate [Volume Rate/Area] in Serum, Plasma or Blood by Pjwxbydevk17.237 mL/MinBlanchard Valley Health SystemGlucose [Mass/volume] in Serum or Plasma Ordered By: Landen Hanley on 65-89-9312Ymxhsvt [Mass/Vol]202 mg/dCPuuo33-189 [facility] SystemComment on above:ADA recommended reference rangeResult Comment: ADA recommended reference rangePerformed By: #### CMP wRFX A1C, CBC, EBS A1C #### [facility] [address] [place] [phone] USAGlucose [Mass/volume] in Urine by Test stripOrdered By: Landen Hanley on 64-26-7868Qtfqvts Test strip (U) [Mass/Vol]Normal mg/dLNormal [facility] SystemHematocrit [Volume Fraction] of Blood by Automated countOrdered By: Landen Hanley on 65-83-1429Lnhynbahzm (Bld) [Volume fraction]32.5 %Low38.8-50.0[facility] SystemComment on above: Performed By: #### CMP wRFX A1C, CBC, EBS A1C #### [facility] [address] [place] [phone] USAHemoglobin Test strip Ql (U)Ordered By: Landen Hanley on 71-37-2798Hccsbbdyxr Ql (U)NegativeNegOur Lady of [facility] Hemoglobin [Mass/volume] in BloodOrdered By: Landen Hanley on 09-12-2025 Hemoglobin (Bld) [Mass/Vol]11.2 g/dLLow13.0-17.0[facility] SystemComment on above:Performed By: #### CMP wRFX A1C, CBC, EBS A1C #### [facility] [address] [place] [phone] USAHyaline casts [#/area] in Urine sediment by Automated countOrdered By: Landen Hanley on 55-16-9108Cimgisj casts Auto (Urine sed) [#/Area]20-49 [LPF]High0-8[facility] SystemKetones [Presence] in Urine by Test stripOrdered By: Landen Hanley on 85-76-1856Xxzikxl Ql (U)Trace NormalNegOur Lady of Mercy Hospital - AndersonComment on above:Order Comment: Name Collection Type:: Clean-Voided MidstreamPerformed By: #### ADDONUAPLUS #### [facility] [address] [place] [phone] USALeukocyte esterase [Presence] in Urine by Test strip Ordered By: Landen Hanley on 36-57-0869Qlxujtypc esterase Test strip Ql (U) NegativeNormalNegativeBlanchard Valley Health SystemComment on above:Order Comment: Name Collection Type:: Clean-Voided MidstreamPerformed By: #### ADDONUAPLUS #### [facility] [address] [place] [phone] USALeukocytes [#/area] in Urine sediment by Automated count Ordered By: Landen Hanley on 07-67-8291WFT Auto (Urine sed) [#/Area]1-2 [HPF]0-4 [facility] SystemLeukocytes [#/volume] corrected for nucleated erythrocytes in Blood by Automated counOrdered By: Landen Hanley on 09-12-2025 WBC corrected for nucl RBC Auto (Bld) [#/Vol]5.4 10*3/uL4.1-10.5FKettering Health HamiltonLeukocytes [#/volume] in Blood by Automated countOrdered By: Landen Hanley on 50-39-5860UYP (Bld) [#/Vol]5.4 10*3/uLNormal4.1-10.5 [facility] SystemComment on above:Performed By: #### CMP wRFX A1C, CBC, EBS A1C #### [facility] [address] [place] [address] USALymphocytes [#/volume] in Blood by Automated countOrdered By: Landen Hanley on 73-93-9511Tjbidhqcshr (Bld) [#/Vol]1.0 10*3/uLNormal 1.00-4.8[facility] SystemComment on above:Performed By: #### CMP wRFX A1C, CBC, EBS A1C #### [facility] [address] [place] [address] USALymphocytes/100 leukocytes in Blood by Automated count Ordered By: Landen Hanley on 80-71-3381Ebvwrwdnapp/100 WBC (Bld)18.6 %Normal. [facility] SystemComment on above:Performed By: #### CMP wRFX A1C, CBC, EBS A1C #### [facility] [address] [Entitic mass] by Automated countOrdered By: Landen Hanley on 58-86-9321EMR (RBC) [Entitic mass]33.9 ytWyfnfu51.5-35.2FKettering Health HamiltonComment on above:Performed By: #### CMP wRFX A1C, CBC, EBS A1C #### [facility] [address] Auto (RBC) [Mass/Vol]Ordered By: Landen Hanley on 23-19-6787XJLX (RBC) [Mass/Vol]34.3 g/dL32.5-35.6FAshtabula General HospitalV [Entitic volume] by Automated countOrdered By: Landen Hanley on 39-74-3610LGJ (RBC) [Entitic vol]98.8 tCQxwezu19.5-101[facility] SystemComment on above:Performed By: #### CMP wRFX A1C, CBC, EBS A1C #### [facility] [address] [place] [address] USAMonocytes [#/volume] in Blood by Automated countOrdered By: Landen Hanley on 17-12-7427Igajgzbfk (Bld) [#/Vol]0.4 10*3/uLNormal0.0-0.8 [facility] SystemComment on above:Performed By: #### CMP wRFX A1C, CBC, EBS A1C #### [facility] [address] [place] [phone] USAMonocytes/100 leukocytes in Blood by Automated count Ordered By: Landen Hanley on 35-54-2884Txunsgqol/100 WBC (Bld)8.1 %Normal. [facility] SystemComment on above:Performed By: #### CMP wRFX A1C, CBC, EBS A1C #### [facility] [address] [place] [address] USAMucus [Presence] in Urine by AutomatedOrdered By: Landen Hanley on 30-16-7683Bylwy Auto Ql (U)1+ [LPF]AbnormalBlanchard Valley Health SystemNeutrophils [#/volume] in Blood by Automated countOrdered By: Landen Hanley on 53-24-9918Budilrhxflj (Bld) [#/Vol]3.9 10*3/uLNormal1.8-7.7FKettering Health HamiltonComment on above:Performed By: #### CMP wRFX A1C, CBC, EBS A1C #### [facility] [address] [place] [address] USANeutrophils/100 leukocytes in Blood by Automated count Ordered By: Landen Hanley on 90-41-0325Uiyjxfywewa/100 WBC (Bld)71.5 %Normal. [facility] SystemComment on above:Performed By: #### CMP wRFX A1C, CBC, EBS A1C #### [facility] [address] [place] [address] USANitrite Test strip Ql (U)Ordered By: Landen Hanley on 37-80-4598Epjkavw Ql (U)NegativeNegativeBlanchard Valley Health SystemNo Panel InformationOrdered By: Landen Hanley on 25-40-7102Oxayudif Creatinine Clearance (ChemN/AFKettering Health HamiltonNucleated erythrocytes [Presence] in Blood by Automated countOrdered By: Landen Hanley on 09-12-2025 Nucleated RBC Auto Ql (Bld)0.1 /100{WBC}0-0.5FKettering Health Hamilton Platelet mean volume [Entitic volume] in Blood by Automated countOrdered By: Landen Hanley on 72-02-0488Rmsovxio mean volume (Bld) [Entitic vol]8.0 fLNormal 6.6-10.1FKettering Health HamiltonComment on above:Performed By: #### CMP wRFX A1C, CBC, EBS A1C #### [facility] [address] [place], [place] [address] USAPlatelets [#/volume] in Blood by Automated countOrdered By: Landen Hanley on 24-97-0344Vkiphzqnu (Bld) [#/Vol]186 10*3/vEHzhped581-172 [facility] SystemComment on above:Performed By: #### CMP wRFX A1C, CBC, EBS A1C #### [facility] [address] [place] [address] USAPotassium [Moles/volume] in Serum or PlasmaOrdered By: Landen Hanley on 26-86-1618Tgmhrgibf [Moles/Vol]4.9 mmol/LNormal3.5-5.1FKettering Health HamiltonComment on above:Performed By: #### CMP wRFX A1C, CBC, EBS A1C #### [facility] [address] [place] [address] USAProtein [Mass/volume] in Serum or PlasmaOrdered By: Landen Hanley on 15-94-0745Zthjpjt [Mass/Vol]6.2 g/dLLow6.4-8.9[facility] SystemComment on above:Performed By: #### CMP wRFX A1C, CBC, EBS A1C #### [facility] [address] [place] [address] USAProtein [Mass/volume] in Urine by Test stripOrdered By: Landen Hanley on 93-13-3411Ohrvkdz (U) [Mass/Vol]20 mg/dLNormalNegativeBlanchard Valley Health SystemComment on above:Order Comment: Name Collection Type:: Clean-Voided MidstreamPerformed By: #### ADDONUAPLUS #### [place] [address] USASerum globulin measurement by calculation (mass/volume) Ordered By: Landen Hanley on 55-77-2125Jvdgjbfi (S) [Mass/Vol]2.2 g/dLNormal [facility] SystemComment on above:Performed By: #### CMP wRFX A1C, CBC, EBS A1C #### [facility] [address] [place] [phone] USASerum or plasma albumin/globulin mass ratioOrdered By: Landen Hanley on 05-76-7221Karyqkg/Globulin [Mass ratio]1.8 {ratio}Normal [facility] SystemComment on above:Performed By: #### CMP wRFX A1C, CBC, EBS A1C #### [facility] [address] [place] [address] USASerum or plasma anion gap determinationOrdered By: Landen Hanley on 53-07-4576Bgckn gap [Moles/Vol]11.3 mmol/LNormal6.0-15.0[facility] SystemComment on above:Performed By: #### CMP wRFX A1C, CBC, EBS A1C #### [facility] [address] [place] [address] USASodium [Moles/volume] in Serum or PlasmaOrdered By: Landen Hanley on 16-82-4452Hmfbyf [Moles/Vol]138 mmol/XIfubfe296-576YfyjycqnoBlanchard Valley Health SystemComment on above:Performed By: #### CMP wRFX A1C, CBC, EBS A1C #### [facility] [address] [place] [address] USASpecific gravity Test strip (U) [Rel density]Ordered By: Landen Hanley on 77-33-0409Wifndmbq gravity (U) [Rel density]1.0291.001-1.030 [facility] SystemUrea nitrogen [Mass/volume] in Serum or Plasma Ordered By: Landen Hanley on 57-07-5745Ghaf nitrogen [Mass/Vol]27 mg/dLHigh7-25 [facility] SystemComment on above:Performed By: #### CMP wRFX A1C, CBC, EBS A1C #### [facility] [address] [place] [phone] USAUrobilinogen Test strip (U) [Mass/Vol]Ordered By: Landen Hanley on 16-94-5215Fivmhrbnuhss (U) [Mass/Vol]4 mg/dLHighNormalBlanchard Valley Health SystemX-ray reportOrdered By: Adin Oakley on 18-62-9345Wjntt reportMAGRUDER HOSPITAL [facility] [address] [place] [address] XRay Report Signed Patient: Robbin Bartlett MR#: [id number] : 1960 Acct:[id number] Age/Sex: 65 / M ADM Date: 5 [place] [facility] [place]: Type: [facility] CLI Attending Dr: Landen Hanley DO Copies to: Landen Hanley DO~ Ordering Provider: Landen Hanley DO Date of Service: 09/12/25 XR/XR shoulder LT min 2V*: S42.295D - Other nondisplaced fracture of upper end of le... LEFT [...] Oakley M.D. 09/12/2025 6:04 PM Dictation Location: [place] [address] Transcribed By: [facility] 09/12/251803 Dictated By: Adin Oakley MD 09/12/251800 Signed By: 09/12/25 [facility] Work Phone: XR shoulder LT min 2V*on 32-67-3782JD shoulder LT min 2V*[facility] [address] [place] [address] XRay Report Signed Patient: Robbin Bartlett MR#: [id number] 166 : 1960 Acct:[id number] Age/Sex: 65 / M ADM Date: 09/12/25 [place] [facility] [place] Room: Type: [facility] CLI Attending Dr: Landen Hanley DO Copies to: Landen Hanley DO Ordering Provider: Landen Hanley DO Date of Service: 09/12/25 XR/XR shoulder LT min 2V*: S42.295D - Other nondisplaced fracture of upper end of le... LEFT [...] Oakley M.D. 09/12/2025 6:04 PM Dictation Location: [place] [address] Transcribed By: [facility] 09/12/251803 Dictated By: Adin Oakley MD 09/12/251800 Signed By: 09/12/251803[facility] Physician GrouppH of Urine by Test stripOrdered By: Landen Hanley on 95-06-2912lB (U)5.5 [pH]Normal5.0-9.0[facility] SystemComment on above:Order Comment: Name Collection Type:: Clean- Voided MidstreamPerformed By: #### ADDONUAPLUS #### [facility] [address] [place] [address] USAX-ray reportOrdered By: Shameka Bedolla on 17-88-9282Fubxl reportMAGRUDER HOSPITAL [facility] [address] [place] [address] XRay Report Signed Patient: Robbin Bartlett MR#: [id number] : 1960 Acct:[id number] Age/Sex: 65 / M ADM Date: 5 [place]: [facility] [place] Room: Type: [facility] Attending Dr: Landen Hanley DO Copies to: Landen Hanley DO~ Ordering Provider: Landen Hanley DO Date of Service: 07/23/25 XR/XR shoulder LT min 2V*: S42.295D - Other nondisplaced fracture of upper end of le... LEFT [...] Bedolla M.D. 07/23/2025 12:12 PM Dictation Location: [place] [address] Transcribed By: [facility] 07/23/25 1212 Dictated By: Shameka Bedolla MD 07/23/25 1209 Signed By: 07/23/25 1212 [facility] Work Phone: XR shoulder LT min 2V*on 20-28-0082EM shoulder LT min 2V*[facility] [address] [place] [address] XRay Report Signed Patient: Robbin Bartlett MR#: [id number] : 1960 Acct:[id number] Age/Sex: 65 / M ADM Date: 07/23/25 [place] [facility] [place] Room: Type: [facility] Attending Dr: Landen Hanley DO Copies to: Landen Hanley DO Ordering Provider: Landen Hanley DO Date of Service: 07/23/25 XR/XR shoulder LT min 2V*: S42.295D - Other nondisplaced fracture of upper end of le... LEFT SHOULDER - 3 views CLINICAL HISTORY: Follow-up humerus fracture COMPARISON: 06/25/2025 AP, Y and Grashey views were obtained. There is osteopenia. Fracture is again seen at the proximal humerus. There is similar displacement. There is minimal callus formation. There is no new f racture or dislocation. There is, however, and inferior displacement of the humeral head with apparent widening of acromiohumeral interval and glenohumeral joint. This could relate to joint effusion. There are no significant soft tissue abnormalities. XR/XR shoulder LT min 2V* IMPRESSION: STABLE DISPLACED PROXIMAL HUMERUS FRACTURE. QUESTION OF JOINT EFFUSION. Impression dictated by: Shameka Bedolla M.D. 07/23/2025 12:12 PM Dictation Location: [place] [address] Transcribed By: [facility] 07/23/25 1212 Dictated By: Shameka Bedolla MD 07/23/25 1209 Signed By: 07/23/25 1212[facility] Physician GroupXR Hip - right 3 Viewson 36-22-2733Qlyujot Result: AP and Lateral Right hip: AP [...] dislocation. Impression: Unremarkable right total hip arthroplasty. [facility] (narrative)[facility] HealthcareX-ray reportOrdered By: Dimitri Richmond on 42-49-1271Qzdsn report [facility] [address] [place] [address] XRay Report Signed Patient: Robbin Bartlett MR#: [id number] : 1960 Acct:[id number] Age/Sex: 65 / M ADM Date: 5 [place]: [facility] [place] Room: Type: [facility] Attending Dr: Landen Hanley DO Copies to: Landen Hanley DO~ Ordering Provider: Landen Hanley DO Date of Service: 06/25/25 XR/XR shoulder LT min 2V*: S4 - Unspecified fracture of upper end of left kevin... LEFT SHOULDER - - 3 views CLINICAL HISTORY: Status post proximal humerus fracture COMPARISON: Outside left shoulder series 05/30/2025 FINDINGS: Left humeral neck fracture which appears more displaced when compared to the prior outside study. Periosteal reaction suggestive of response. XR/XR shoulder LT min 2V* IMPRESSION: INTERVAL INCREASE IN DISPLACEMENT OF THE LEFT HUMERAL NECK FRACTURE SINCE THE PRIOR STUDY WITH PERIOSTEAL REACTION SUGGESTIVE OF HEALING RESPONSE. Impression dictated by: Dimitri Richmond Jr., D.O. 06/25/2025 9:14 PM Dictation Location: RADIO-PC-18 Transcribed By: HELEN 06/25/252113 Dictated By: Dimitri Richmond Jr, DO 06/25/252112 Signed By: 06/25/252113 [facility] SystemXR shoulder LT min 2V*on 76-49-0920MB shoulder LT min 2V*[facility] [address] [place] [address] XRay Report Signed Patient: Robbin Bartlett MR#: [id number] 166 : 1960 Acct:[id number] Age/Sex: 65 / M ADM Date: 06/25/25 [place]: [facility] [place]: Type: [facility] Attending Dr: Landen Hanley DO Copies to: Landen Hanley DO Ordering Provider: Landen Hanley DO Date of Service: 06/25/25 XR/XR shoulder LT min 2V*: S42.A - Unspecified fracture of upper end of left kevin... LEFT SHOULDER - - 3 views CLINICAL HISTORY: Status post proximal humerus fracture COMPARISON: Outside left shoulder series 05/30/2025 FINDINGS: Left humeral neck fracture which appears more displaced when compared to the prior outside study. Periosteal reaction suggestive of response. XR/XR shoulder LT min 2V* IMPRESSION: INTERVAL INCREASE IN DISPLACEMENT OF THE LEFT HUMERAL NECK FRACTURE SINCE THE PRIOR STUDY WITH PERIOSTEAL REACTION SUGGESTIVE OF HEALING RESPONSE. Impression dictated by: Dimitri Richmond Jr., D.O. 06/25/2025 9:14 PM Dictation Location: [facility]IO-PC-18 Transcribed By: HELEN 06/25/252113 Dictated By: Dimitri Richmond Jr, DO 06/25/252112 Signed By: 06/25/252113[facility] Physician GroupAmbulatory Visit Summaryon 41-34-8356Hxsucbmxwp Visit SummaryAmbulatory Visit Summary ROBBIN BARTLETT :1960 Visit Date:06/19/2025 Ambulatory Visit Instructions Your Diagnosis Type 2 diabetes mellitus with chronic kidney disease HTN (hypertension) Chronic kidney disease (CKD), stage 2 Drug induced constipation Tests Performed XR Abdomen 1 View -- Results Pending -- Please visit your patient portal for your results or contact your primary care physician. Your Care Team Attending Physician - QUIRINO WU CNP Primary Care Physician - Umesh Aquino MD This Is Your Medications List Contact prescribing physician if questions or concerns Misc Prescription (FREESTYLE ANIBAL 3 PLUS SENSOR) Misc Prescription (pen needels BD UF) atorvastatin (atorvastatin 40 mg Tab) chlorhexidine topical (chlorhexidine 0.12% mucous membrane liquid) etodolac (etodolac 400 mg Tab) fexofenadine (fexofenadine 180 mg Tab) furosemide (furosemide 20 mg Tab) gabapentin (gabapentin 300 mg Cap) glyBURIDE (GlyBURIDE (Eqv-Micronase) 5 mg oral tablet) insulin lispro-insulin lispro protamine (Insulin Lispro Protamine-Insulin Lispro Mix75/25 KwikPen subcutaneous suspension) lamotrigine (lamotrigine 100 mg Tab) losartan (losartan 50 mg Tab) lurasidone (lurasidone 120 mg oral tablet) metformin (metformin 1000 mg Tab) oxycodone (oxyCODONE 5 mg Tab) pimecrolimus topical (pimecrolimus Top Crm 30 gram) pioglitazone (pioglitazone 30 mg Tab) semaglutide (Ozempic (1 mg dose) 4 mg/3 mL subcutaneous solution) sertraline (sertraline 100 mg Tab) tizanidine (tiZANidine 4 mg Tab) Procedures Performed Arthroscopy of hip (11/08/2023), Colonoscopy (2016), Adenoidectomy, Appendectomy;, Arthroscopy of knee, Cholecystectomy, H/O splenectomy, Tonsillectomy. Discharge Vitals Temperature (Oral) 36.8 ???C Heart Rate (Peripheral) 78 Respiratory Rate 18 Blood Pressure 136/86 Height 174.5 cm Height 69 in Weight 117 kg Weight 257.941 lb BMI 38.42 What to do next Scheduled Follow-Up Appointments Monday 9:30 AM EST Where: [place] [id number]- You Need to Schedule the Following Appointments Follow Up with QUIRINO WU CNP, FAM When: Within 6 months Comments: Diabetes Where: [address] [place] [address] [facility] (1) Medications What How Much When Instructions Unchanged atorvastatin (atorvastatin 40 mg Tab) See instructions TAKE 1 TABLET BY MOUTH IN THE EVENING Contact prescribing physician if questions or concerns Unchanged chlorhexidine topical (chlorhexidine 0.12% mucous membrane liquid) RINSE WITH 1/ 2 OUNCE TWICE A DAY AFTER BREAKFAST AND BEFORE BEDTIME *SPIT OUT DO NOT SWALLOW* Contact prescribing physician if questions or concerns Unchanged etodolac (etodolac 400 mg Tab) TAKE 1 TABLET BY MOUTH TWICE A DAY NEEDED FOR PAIN Contact prescribing physician if questions or concerns Unchanged fexofenadine (fexofenadine 180 mg Tab) See instructions TAKE 1 TABLET BY MOUTH EVERY DAY Contact prescribing physician if questions or concerns Unchanged furosemide (furosemide 20 mg Tab) 1 Tablets By Mouth Every day Contact prescribing physician if questions or concerns Unchanged gabapentin (gabapentin 300 mg Cap) 1 Capsules By Mouth 3 times a day TAKE 1 CAPSULE BY MOUTH IN THE MORNING, EVENING, AND BEFORE BEDTIME Contact prescribing physician if questions or concerns Unchanged glyBURIDE (GlyBURIDE (Eqv-Micronase) 5 mg oral tablet) See instructions take 2 tablets inthe morning and 1 tablet in the evening Contact prescribing physician if questions or concerns Unchanged insulin lispro-insulin lispro protamine (Insulin Lispro Protamine- Insulin Lispro Mix75/ 25 KwikPen subcutaneous suspension) See instructions 20units subq once a day Contact prescribing physician if questions or concerns Unchanged lamotrigine (lamotrigine 100 mg Tab) TAKE 1 TABLET BY MOUTH EVERYDAY AT BEDTIME Contact prescribing physician if questions or concerns Unchanged losartan (losartan 50 mg Tab) 2 Tablets By Mouth Every day Contact prescribing physician if questions or concerns Unchanged lurasidone (lurasidone 120 mg oral tablet) 1 Tablets By Mouth Every day Contact prescribing physician if questions or concerns Unchanged metformin (metformin 1000 mg Tab) 1 Tablets By Mouth 2 times a day Contact prescribing physician if questions or concerns Unchanged Misc Prescription (FREESTYLE ANIBAL 3 PLUS SENSOR) USE 1 SENSOR BY OTHER ROUTE DAILY FOR 30 DAYS CHANGE SENSOR EVERY 15 DAYS Contact prescribing physician if questions or concerns Unchanged Misc Prescription (pen needels BD UF) See instructions BD UF III mini pen needles [id number] bid to inject insulin Contact prescribing physician if questions or concerns Unchanged oxycodone (oxyCODONE 5 mg Tab) Contact prescribing physician if questions or concerns Unchanged pimecr (more content not included)...[facility] Medicine Office/Clinic Noteon 65-12-4446Dspplm Medicine Office/Clinic NoteFam[facility] Medicine Office/Clinic Note Chief Complaint Follow up The patient presents with constipation and requires follow-up for type 2 diabetes mellitus with chronic kidney disease. [facility] Staff Former Dr Aquino pt. Presents today for 6m follow up Patient is here for follow up on Diabetes. How often are you checking your blood sugars? _ yes What are your average readings? _around 100, was 66 today Paresthesias, Ulcerations or sores? no Lisinopril, aspirin, statin therapy? Yes Foot Exam: DUE Eye Exam: 02/09/25 Last A1c: Hgb A1C %: 6.7 % High (11/12/24 09:22:00) Patient is here for follow up on hypertension. How often are you checking your blood pressure? _no Yearly BMP: _11/12/24 Patient is here for follow up on hyperlipidemia: Do you have side effects from the medication? no Yearly Lipid labs: _11/12/24 Did fall 3wks ago and broke his arm. Was given Oxycontin. States he has not had a bm in 3wks. History of Present Illness 65-year-old male presenting with constipation and follow-up for type 2 diabetes mellitus with chronic kidney disease. The patient reports constipation for three weeks, attributed to medication following a recent arm fracture. He attempted modw-tzv-uzoqhbl remedies without success and has been advised to undergo an abdominal x-ray to rule out bowel obstruction. The patient has a history of type 2 diabetes mellitus with chronic kidney disease, with an A1c of 6.7% recorded six months ago. He is due for an A1c test today to monitor his glycemic control. The patient underwent eyelid surgery last month to correct drooping eyelids, performed by Dr. Sorenson at the eye center in [place]. Review of Systems - Gastrointestinal: Reports constipation for three weeks, denies abdominal pain - Endocrine: Reports stable diabetes management, A1c 6.7% six months ago Physical Exam Vitals & Measurements T: 36.8 ???C(Oral) HR: 78(Peripheral) RR: 18 BP: 136/86 SpO2: 96% HT: 174.5 cm HT: 69 in WT: 117 kg WT: 257.941 lb BMI: 38.42 General: alert, no acute distress Cardiovascular: regular rate and rhythm, normal peripheral perfusion Respiratory: Lungs CTA, respirations non labored Abdominal: No tenderness on palpation, bowel sounds present Extremities: no deformity, no trauma Neurological: oriented x 4, LOC appropriate for age speech normal Assessment/Plan 1. Type 2 diabetes mellitus with chronic kidney disease (E11.22: Type 2 diabetes mellitus with diabetic chronic kidney disease) - Plan to perform an A1c test today to monitor glycemic control. - Continue glyburide, Insulin Lispro, & MetFORMIN - Encouraged low carb diet and daily exercise - Awaiting HgbA1C results - F/U in 6 months Ordered: HgbA1c 2. HTN (hypertension) (I10: Essential (primary) hypertension) Controlled Stable Encourage low sodium diet and daily exercise f/u in 6 months 4. Drug induced constipation (K59.03) - Plan to perform an abdominal x-ray to rule out bowel obstruction. - Consideration of laxatives if no obstruction is found. 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 Medications atorvastatin 40 mg Tab, See Instructions chlorhexidine 0.12% mucous membrane liquid etodolac 400 mg Tab fexofenadine 180 mg Tab, See Instructions FREESTYLE ANIBAL 3 PLUS SENSOR furosemide 20 mg Tab, 20 mg= 1 tab(s), Oral, Daily gabapentin 300 mg Cap, 300 mg= 1 cap(s), Oral, TID GlyBURIDE (Eqv-Micronase) 5 mg oral tablet, See Instructions, 3 refills Insulin Lispro Protamine-Insulin Lispro Mix75/25 KwikPen subcutaneous suspension, See Instructions lamotrigine 100 mg Tab losartan 50 mg Tab, 100 mg= 2 tab(s), Oral, Daily lurasidone 120 mg oral tablet, 120 mg= 1 tab(s), Oral, Daily metformin 1000 mg Tab, 1000 mg= 1 tab(s), Oral, BID, 3 refills oxyCODONE 5 mg Tab Ozempic (1 mg dose) 4 mg/3 mL subcutaneous solution, See Instructions pen needels BD UF, See Instructions, 3 refills pimecrolimus Top Crm 30 gram pioglitazone 30 mg Tab, 30 mg= 1 tab(s), Oral, Daily, 3 refills sertraline 100 mg Tab, 100 mg= 1 tab(s), Oral, Daily tiZANidine 4 mg Tab, See Instructio (more content not included)...NormalLima City HospitalComment on above:Result Comment: Electronically Signed By: QUIRINO WU CNP\.br\Date and Time Signed: 06/19/25 14:32 KOBGulS6sre 93-99-7169LvD4j (Bld) [Mass fraction]6.1 %High<=5.9[facility] Comment on above:Performed By: #### [id number] #### [facility] [address], [place] [address]Umu-Uhtgv Planningon 06-77-8587Okq-Visit PlanningPre-Visit Planning From: Мария HENRY, Yoli To: QUIRINO WU CNP; Sent: 06/03/2025 11:41:50 EDT Subject: Pre-Visit Planning Due Date/Time: 06/03/2025 11:41:00 EDT Caller Name: ROBBIN BARTLETT; Caller Number: Baldev , M Vincenzo Ariza, *Based on your response below, can you please update the chronic problem list and address during this visit if appropriate?* During a pre-visit planning chart review, I noted the following documentation in the medical recordindicates that this patient had a BMI of 39.87 on 12/05/2024. The National [place] [employer] defines obesity as morbid if the patient demonstrates a BMI of over 40, or a BMI of 35 or more and at least one weight- related comorbid condition, such as diabetes or hypertension. Examples of weight-related comorbidities include diabetes, heart disease, stroke, hypertension, and arthritis. Current problem list: Hypertension, Diabetes mellitus, CKD Based on your medical judgment, can you further clarify the following diagnosis that correlates with the BMI listed above if the current BMI is still 35 or over? - Severe obesity (BMI 35.0-39.9) with comorbidity - Morbid obesity (please also include additional diagnosis to reflect current BMI) - Other (please specify): I can update the problem list with your specified response if you would like. In responding to this request, please exercise your independent professional judgment. The fact that a question is asked does not imply that any particular answer is desired or expected. If you have any questions, please feel free to contact me at extension [phone]. Thank you! AGATHA Coulter, RN, CCM, CCDS, CCDS-O CDI Electrical [employer]ation Manager [place] [address] P: [phone] F: [phone] [email or web address] From: QUIRINO WU CNP To: Yoli Hsieh RN; Sent: 06/05/2025 15:24:43 EDT Subject: RE: Pre-Visit Planning Caller Name: ROBBIN BARTLETT; Caller Number: H , M patient did not show for his appointment From: Yoli Hsieh RN To: QUIRINO WU CNP; Sent: 06/18/2025 13:07:57 EDT Subject: FW: Pre-Visit Planning Due Date/Time: 06/18/2025 13:07:00 EDT Caller Name: ROBBIN BARTLETT; Caller Number: Baldev , M Vincenzo Ariza, hopefully patient comes for this visit. Please see below From: CATIE GABRIEL QUIRINO Oxana To: Мария HENRY, Yoli; Sent: 06/19/2025 14:40:18 EDT Subject: RE: Pre-Visit Planning Caller Name: ROBBIN BARTLETT; Caller Number: Baldev , M Severe obesity (BMI 35.0-39.9) with comorbidity- Please update list as I forgot too.Veterans Health AdministrationUS renal BIon 63-98-5879IO renal BI [facility] [address] Ultrasound Report Signed Patient: Robbin Bartlett MR#: [id number] : 1960 Acct:[id number] Age/Sex: 64 / M ADM Date: 02/20/25 Loc: Room: Type: [facility] Attending Dr: Elia Magallanes MD Ordering Provider: Elia Magallanes MD Date of Service: 02/20/25 US/US renal BI: E11.21 - Type 2 diabetes mellitus with diabetic nephropathy Copies to: Elia Magallanes MD BILATERAL RENAL AND BLADDER ULTRASOUND CLINICAL HISTORY: Stage IIIB chronic kidney disease. COMPARISON: None FINDINGS: Estimation of renal size is approximately 12.71 cm on the right and 12.66 cm on the left. 12 mm stone left kidney. No hydronephrosis of either kidney. The urinary bladder is partially distended with a volume of 105.57 ml. No shadowing stone or focal lesion. US/US renal BI IMPRESSION: 12 MM NONOBSTRUCTING STONE LEFT KIDNEY. NO HYDRONEPHROSIS. Impression dictated by: Dimitri Richmond Jr., D.O.02/20/2025 8:59 AM Dictation Location: [place] [address] Tech: Kathleen Blackmon Transcribed By: HELEN 02/20/25 0859 Dictated By: Dimitri Richmond Jr, DO 02/20/25 0859 Signed By: 02/20/25 0859No[facility] Physician GroupAlbumin [Mass/volume] in Serum or Plasma by Bromocresol green (BCG) dye binding methoOrdered By: Elia Magallanes on 32-42-2578Zccdemq BCG dye [Mass/Vol]Albumin [Mass/volume] in Serum or Plasma by Bromocresol green (BCG) dye binding metho3.5-5.7FKettering Health HamiltonCalcium [Mass/volume] in Serum or PlasmaOrdered By: Elia Magallanes on 10-08-6906Eklgdch [Mass/Vol]Calcium [Mass/volume] in Serum or Plasma8.6-10.3 [facility] SystemCarbon dioxide, total [Moles/volume] in Serum or PlasmaOrdered By: Elia Magallanes on 69-43-3480DW7 [Moles/Vol]Carbon dioxide, total [Moles/volume] in Serum or Ubmkvj06.0-31.0[facility] SystemChloride [Moles/volume] in Serum or PlasmaOrdered By: Elia Magallanes 09-34-6372Gegrebxr [Moles/Vol]Chloride [Moles/volume] in Serum or PlasmaHigh 98-107[facility] SystemCreatinine [Mass/volume] in Serum or PlasmaOrdered By: Elia Magallanes 36-85-3552Cwcnpqngdt [Mass/Vol]Creatinine [Mass/volume] in Serum or Plasma0.70-1.30[facility] Erythrocyte distribution width Auto (RBC) [Ratio]Ordered By: Elia Magallanes on 72-76-7438Wcykbqziwag distribution width (RBC) [Ratio]Erythrocyte distribution width [Ratio] by Automated count12.0-14.8[facility] Glucose [Mass/volume] in Serum or PlasmaOrdered By: Elia Magallnaes on 02-12-2025 Glucose [Mass/Vol]Glucose [Mass/volume] in Serum or LlzlstJeor07-161ExdckwlyzBlanchard Valley Health SystemComment on above:ADA recommended reference rangeRandom Glucose Reference Range is dependent on time and content of last meal. Glucose of more than 200 mg/dL in a nonstressed, ambulatory subject supports the diagnosisof Diabetes Mellitus.Hematocrit Auto (Bld) [Volume fraction]Ordered By: Elia Magallanes on 25-41-9469Bxrtjpscki (Bld) [Volume fraction]Hematocrit [Volume Fraction] of Blood by Automated btnorKbl57.8-50.0[facility] SystemHemoglobin [Mass/volume] in BloodOrdered By: Elia Magallanes on 02-12-2025 Hemoglobin (Bld) [Mass/Vol]Hemoglobin [Mass/volume] in FjdoiDnf82.0-17.0 [facility] SystemHemogram CBC Without Diffon 02-12-2025 Erythrocyte distribution width (RBC) [Ratio]13.3 %Nmrdng22.0-14.8[facility] Physician GroupComment on above:Performed By: #### RENAL, PTH, CBCNO, URIC #### [facility] [address] [place] [address] USAHematocrit (Bld) [Volume fraction]35.7 %Low38.8-50.0[facility] Physician GroupComment on above:Performed By: #### RENAL, PTH, CBCNO, URIC #### [facility] [address] [place] [address] USAHemoglobin (Bld) [Mass/Vol]12.4 g/dLLow13.0-17.0[facility] Physician GroupComment on above:Performed By: #### RENAL, PTH, CBCNO, URIC #### [facility] [address] [place] [address] USAMCH (RBC) [Entitic mass]34.0 yaDiwjbb86.5-35.2[facility] Physician GroupComment on above:Performed By: #### RENAL, PTH, CBCNO, URIC #### [facility] [address] [place] [address] USAMCV (RBC) [Entitic vol]97.8 kPSwbhjp68.5-101[facility] Hospital Physician GroupComment on above:Performed By: #### RENAL, PTH, CBCNO, URIC #### [facility] [address] [place] [address] USAMean Corpuscular HGB Conc34.8 g/nVBxkrwj95.5-35.6The [facility] Physician GroupComment on above:Performed By: #### RENAL, PTH, CBCNO, URIC #### [place] [address] USAPlatelet mean volume (Bld) [Entitic vol]8.6 fLNormal 6.6-10.1The [facility] Hospital Physician GroupComment on above:Result Comment: PERFORMED BY: [place] [address] PATHOLOGIST LEAN PROCESS DEPLOYMENT CONSULTANT DEANNA SNYDER M.D.Performed By: #### RENAL, PTH, CBCNO, URIC #### [place] [address] USAPlatelets (Bld) [#/Vol]191 10*3/jAYnkgeb831-414Rfm [facility] Physician GroupComment on above:Performed By: #### RENAL, PTH, CBCNO, URIC #### [place] [address] USARBC (Bld) [#/Vol]3.66 10*6/uLLow3.90-5.60The [facility] Hospital Physician GroupComment on above:Performed By: #### RENAL, PTH, CBCNO, URIC #### [place] [address] USAWBC (Bld) [#/Vol]8.6 10*3/uLNormal4.1-10.5The [facility] Hospital Physician GroupComment on above:Performed By: #### RENAL, PTH, CBCNO, URIC #### [place] [address] USALeukocytes [#/volume] corrected for nucleated erythrocytes in Blood by Automated counOrdered By: Elia Magallanes on 89-17-4798KMH corrected for nucl RBC Auto (Bld) [#/Vol]Leukocytes [#/volume] corrected for nucleated erythrocytes in Blood by Automated coun4.1-10.5FK[facility] Hamilton MCH Auto (RBC) [Entitic mass]Ordered By: Elia Magallanes on 50-98-1371EFL (RBC) [Entitic mass]MCH [Entitic mass] by Automated count27.5-35.2FKettering Health HamiltonMCHC Auto (RBC) [Mass/Vol]Ordered By: Elia Magallanes on 02-12-2025 MCHC (RBC) [Mass/Vol]MCHC [Mass/volume] by Automated count32.5-35.6FKettering Health HamiltonMCV Auto (RBC) [Entitic vol]Ordered By: Elia Magallanes on 34-54-5548OYI (RBC) [Entitic vol]MCV [Entitic volume] by Automated count83.5-101 [facility] SystemNo Panel InformationOrdered By: Elia Magallanes on 74-77-0934Pxrtjqrvw GFR (CKD-EPI)> 60.0 mL/MinBlanchard Valley Health System Pharmacy Creatinine Clearance (ChemN/[facility] Parathyrin.intact [Mass/volume] in Serum or PlasmaOrdered By: Elia Magallanes on 26-31-9949Chjiwmxygd.intact [Mass/Vol]Parathyrin.intact [Mass/volume] in Serum or Cxuqtg01-73WxshvixivBlanchard Valley Health SystemParathyroid Hormone [place] 52-93-0600Gwbppbmzjvc Hormone Awtcbi63.2 pg/vRVhdxcn72-62Hbj [facility] Physician GroupComment on above:Result Comment: PERFORMED BY: [place] [address] PATHOLOGIST LEAN PROCESS DEPLOYMENT CONSULTANT DEANNA SNYDER M.D.Performed By: #### RENAL, PTH, CBCNO, URIC #### [place] [address] USAPhosphate [Mass/volume] in Serum or PlasmaOrdered By: Elia Magallanes on 77-99-9213Xdvoyithk [Mass/Vol]Phosphate [Mass/volume] in Serum or Plasma2.5-4.5FKettering Health HamiltonPlatelet mean volume Auto (Bld) [Entitic vol]Ordered By: Elia Magallanes on 10-57-5175Jblyiezz mean volume (Bld) [Entitic vol]Platelet mean volume [Entitic volume] in Blood by Automated count 6.6-10.1FKettering Health HamiltonPlatelets Auto (Bld) [#/Vol]Ordered By: Elia Magallanes on 52-79-3596Eukewklwv (Bld) [#/Vol]Platelets [#/volume] in Blood by Automated cknro662-080DhhlvfggnBlanchard Valley Health SystemPotassium [Moles/volume] in Serum or PlasmaOrdered By: Elia Magallanes on 45-26-5909Uxrcxnjli [Moles/Vol]Potassium [Moles/volume] in Serum or Plasma3.5-5.1FKettering Health HamiltonRBC Auto (Bld) [#/Vol]Ordered By: Elia Magallanes on 24-92-4103RUQ (Bld) [#/Vol]Erythrocytes [#/volume] in Blood by Automated countLow3.90-5.60 [facility] SystemRenal Function Panelon 22-84-5863Gfzsnpw [Mass/Vol]4.4 g/dLNormal3.5-5.7The [facility] Hospital Physician GroupComment on above: Performed By: #### RENAL, PTH, CBCNO, URIC #### [facility] [address] [place] [address] USAAnion gap [Moles/Vol]13.7 mmol/LNormal6.0-15.0The [facility] Physician GroupComment on above:Performed By: #### RENAL, PTH, CBCNO, URIC #### [place] [address] USACalcium [Mass/Vol]9.3 mg/dLNormal8.6-10.3The [facility] Hospital Physician GroupComment on above:Performed By: #### RENAL, PTH, CBCNO, URIC #### [facility] [address] [place] [address] USAChloride [Moles/Vol]108 mmol/EPpjr52-696Xnf [facility] Physician GroupComment on above:Performed By: #### RENAL, PTH, CBCNO, URIC #### [facility] [address] [place] [address] USACO2 [Moles/Vol]24.8 mmol/RCxfzeo82.0-31.0The [facility] Hospital Physician GroupComment on above:Performed By: #### RENAL, PTH, CBCNO, URIC #### [facility] [address] [place] [address] USACreatinine [Mass/Vol]1.30 mg/dLNormal0.70-1.30The [facility] Hospital Physician GroupComment on above:Performed By: #### RENAL, PTH, CBCNO, URIC #### [facility] [address] [place] [address] USAGFR/1.73 sq M.predicted MDRD (S/P/Bld) [Vol rate/Area] mL/min/{1.73_m2}NormalThe [facility] Hospital Physician GroupComment on above:Performed By: #### RENAL, PTH, CBCNO, URIC #### [facility] [address] [place] [address] USAGlucose [Mass/Vol]101 mg/fRPyye56-299Skl [facility] Physician GroupComment on above:Result Comment: Random Glucose Reference Range is dependent on time and content of last meal. Glucose of more than 200 mg/dL in a nonstressed, ambulatory subject supports the diagnosis of Diabetes Mellitus. ADA recommended reference rangePerformed By: #### RENAL, PTH, CBCNO, URIC #### [facility] [address] [place] [address] USAPhosphate [Mass/Vol]3.4 mg/dLNormal2.5-4.5The [facility] Hospital Physician GroupComment on above:Performed By: #### RENAL, PTH, CBCNO, URIC #### [place] [address] USAPotassium [Moles/Vol]4.5 mmol/LNormal3.5-5.1The [facility] Hospital Physician GroupComment on above:Performed By: #### RENAL, PTH, CBCNO, URIC #### [facility] [address] [place] [address] USASodium [Moles/Vol]142 mmol/ZZgvbij220-845Bds [facility] Physician GroupComment on above:Performed By: #### RENAL, PTH, CBCNO, URIC #### [facility] [address] [place] [address] USAUrea nitrogen [Mass/Vol]33 mg/dLHigh7-25The [facility] Hospital Physician GroupComment on above:Performed By: #### RENAL, PTH, CBCNO, URIC #### [facility] [address] [place] [id number] USASerum or plasma anion gap determinationOrdered By: Elia Magallanes on 29-75-6695Qbsys gap [Moles/Vol]Serum or plasma anion gap determination6.0-15.0[facility]edo Hospitalodium [Moles/volume] in Serum or PlasmaOrdered By: Elia Magallanes on 93-96-5927Halorz [Moles/Vol]Sodium [Moles/volume] in Serum or Fjzick200-403VrhphiodcBlanchard Valley Health SystemUrate [Mass/volume] in Serum or PlasmaOrdered By: Elia Magallanes on 77-17-7537Eqwit [Mass/Vol]Urate [Mass/volume] in Serum or Plasma4.4-7.6FKettering Health HamiltonUrea nitrogen [Mass/volume] in Serum or PlasmaOrdered By: Elia Magallanes on 22-61-2600Teau nitrogen [Mass/Vol]Urea nitrogen [Mass/volume] in Serum or PlasmaHigh7-25[facility] Health SystemUric Acidon 02-12-2025 Urate [Mass/Vol]4.7 mg/dLNormal4.4-7.6The [facility] Hospital Physician GroupComment on above:Result Comment: PERFORMED BY: [place] [address] PATHOLOGIST LEAN PROCESS DEPLOYMENT CONSULTANT DEANNA SNYDER M.D.Performed By: #### RENAL, PTH, CBCNO, URIC #### [place] [id number] USANo Panel Informationon 05-61-8815Wnqomqkwttugeo Meyers DO 02/11/2025 4:28 PM Nerve Block Date/Time: 02/11/2025 3:55 PM Performed by: Temi Meyers DO Authorized by: Lluvia Woodward NP Consent: Consent obtained: Written Consent given by: Patient [place] protocol: Procedure explained and questions answered to patient or proxy's satisfaction: yes Patient identity confirmed: Verbally with patient Location: Body area: Trunk Trunk nerve: Lumbar Procedure details: Guidance: fluoroscopy Steroid injected: Dexamethasone Post-procedure details: Procedure completion: [facility] Medicine Office/Clinic Noteon 04-51-6599Boqojn Medicine Office/Clinic NoteFamonson [facility] Medicine Office/Clinic Note Chief Complaint Routine follow-up for management of diabetes and associated chronic conditions. HPI Staff Robbin is a 64 year old female presenting with 1 month f/u Do you have any of the following symptoms? Foot Exam: every 3 months- October was the last one Eye Exam: last year- he knows he is due Last A1C: November 12 2024 (6.7) Statin: Atorvastatin 40 mg History of Present Illness The patient is a 64-year-old male presenting with routine follow-up for the management of diabetes and associated chronic conditions. The patient has a history of Type 2 diabetes mellitus complicatedby hyperlipidemia, which has been managed with insulin and atorvastatin as indicated in his regimen. A recent adjustment in insulin dosage has resulted in improved glycemic control with an average morning blood sugar of 148 mg/dL; however, challenges arose with medication adherence when the patientran out of insulin the previous night and required a refill the following morning. Previously recorded blood glucose levels indicate a higher reading of 179 mg/dL on November 12. Hismost recent hemoglobin A1c level was stable at 6.7%, suggesting relatively well-controlled diabetes. Additionally, the patient has essential hypertension and hyperlipidemia that are well-managed withcurrent therapeutic measures, reflected in satisfactory blood pressure readings at present. The patient has confirmed adherence to his health maintenance plan, including exercise, with gym visits for cardiovascular and strength training exercises thrice weekly. Symptoms of peripheral neuropathy appear well-controlled under existing treatment, with no current discomfort reported. 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 Management of bipolar disorder is under the care of Dr. Zamora, with no further elaboration during the visit. Overall cardiovascular risk management discussions focused on lifestyle modifications, adherence to diabetic education principles, and continued effort towards weight control. - Exercise: Engages in walking 20 minutes per session, three times a week. - Plans to incorporate shoulder exercises with a water trainer next week. - Diet: Continues to adhere to diabetic education principles. - Blood Pressure Monitoring: Blood pressure reportedly controlled. - Maintains medial adherence to atorvastatin for cholesterol. - Former smoker: Personal history of nicotine dependence acknowledged but not currently active. Review of Systems PHQ Score Initial Depression Screen Score: 0 SCORE Physical Exam Vitals & Measurements T: 36.4 ???C(Oral) HR: 76(Peripheral) RR: 18 BP: 112/68 SpO2: 99% HT: 69 in HT: 174.5 cm WT: 121.4 kg WT: 267.641 lb BMI: 39.87 General: alert, no acute distress ENMT: oral mucosa moist Cardiovascular: Regular rate and rhythm, normal peripheral perfusion Respiratory: Lungs clear to auscultation, respirations non labored Extremities: no deformity, no trauma, fluid in legs due to shackles syndrome Neurological: oriented x 4, level of consciousness appropriate for age, CN II- XII intact, motor strength equal & normal bilaterally, speech normal Abdomen: Soft, Non-tender, Non-distended, + Bowel sounds Assessment/Plan 1. Bipolar disorder (F31.9: Bipolar disorder, unspecified) Continue psychiatric management under Dr. Zamora. No additional concerns or management changes indicated during this visit. 2. [facility] current use of insulin (Z79.4: [facility] (current) use of insulin) Monitor adherence with insulin regimens and timely refill of prescriptions to avoid missed doses. 3. Type 2 diabetes mellitus with hyperlipidemia (E11.69: Type 2 diabetes mellitus with other specified complication) Continue current diabetes management with insulin adjustments proving effective. Reinforce diabeticeducation and self-monitoring of blood glucose. 4. BMI 39.0-39.9,adult (Z68.39: Body mass index [BMI] 39.0-39.9, adult) Maintain current exercise regimen and dietary strategy. Continue monitoring BMI and encourage weight management through structured exercise programs. 5. Former smoker (Z87.891: Personal history of nicotine dependence) Please continue to not smoke. 6. Exogenous obesity (E66.09: Other obesity due to excess calories) Addressed through exercise discussions and diet control strategies. Ongoing emphasis on lifestyle adjustments within diabetic education. 7. HTN (hypertension) (I10: Essential (primary) hypertension) Confirm blood pressure remains controlled under current medication regimen. Continue regular monitoring. Hyperlipidemia, unspecified (E78.5: Hyperlipidemia, unspecified) Stable on atorvastatin, no changes in statin therapy needed. Continue close monitoring of lipid panels as indicated. Orders: insulin lispro-insulin lispro protamine, See Instructions, 20units subq once a day, # 15 mL, Refills(s) 0, Pharmacy: [facility]/pharmacy #[id number], 174.5, (more content not included)...NormalLima City HospitalComment on above:Result Comment: Electronically Signed By: Miles FINE, Umesh Colindres\Date and Time Signed: 12/05/24 09:17 [facility] Auto Diffon 71-98-1525Cqhrclbwt/100 WBC (Bld)0.3 % Normal0.0-2.0[facility] City HospitalComment on above:Performed By: #### [id number] #### [facility] [address] [place], [place] [address]Bslxtpkqb/Leukocytes Auto (Bld) [Pure # fraction]0.0 E9/LNormal 0.0-0.2FMercy Health Clermont HospitalComment on above:Performed By: #### [id number] #### [facility] [address], [place] [address]Mwqivgfxdsb (Bld) [#/Vol]0.1 E9/LNormal0.0-0.5FMercy Health Clermont HospitalComment on above:Performed By: #### [id number] #### [facility] [address], [place] [address]Blncfcbjqbf/100 WBC (Bld)1.6 %Normal0.0-8.0[facility] City HospitalComment on above:Performed By: #### [id number] #### [facility] [address], [place] [address]Lnhitudndam distribution width (RBC) [Ratio]13.2 %Normal 10.9-14.2FMercy Health Clermont HospitalComment on above:Performed By: #### [id number] #### [facility] [address], [place] [address]Edscbbsgmv (Bld) [Volume fraction]37.5 %Low37.7-49.0L[facility] City HospitalComment on above:Performed By: #### [id number] #### [facility] [address], [place] [address]Xntzqkbkni (Bld) [Mass/Vol]12.7 g/dLLow13.5-17.5FMercy Health Clermont HospitalComment on above:Performed By: #### [id number] #### [facility] [address] [place] [address]Kwhatfuogdg (Bld) [#/Vol]1.6 E9/LNormal1.0-4.0[facility] City HospitalComment on above:Performed By: #### [id number] #### [facility] [address] [place] [address]Rjyfkinothh/100 WBC (Bld)26.0 %Oqwtbu97.0-50.0[facility] City HospitalComment on above:Performed By: #### [id number] #### [facility] [address] [place] [address]LJG (RBC) [Entitic mass]33.4 ywSgvcxt97.0-34.0L[facility] City HospitalComment on above:Performed By: #### [id number] #### [facility] [address] [place] [address]EGUX (RBC) [Mass/Vol]33.9 g/xVEjeukj45.4-36.0[facility] City HospitalComment on above:Performed By: #### [id number] #### [facility] [address] [place] [address]WLN (RBC) [Entitic vol]98.6 sFMknsia12.0-100.0[facility] City HospitalComment on above:Performed By: #### [id number] #### [facility] [address] [place] [address]Rlmivfnnf (Bld) [#/Vol]0.6 E9/LNormal0.2-1.0[facility] City HospitalComment on above:Performed By: #### [id number] #### [facility] [address] [place] [address]Womnwskdzaz (Bld) [#/Vol]3.9 E9/LNormal2.0-7.5Fisher Cape Girardeau Medical CenterComment on above:Performed By: #### [id number] #### [facility] [address], [place] [address]Ghhxrbknxth/100 WBC (Bld)62.0 %Ckynge38.0-75.0[facility] City HospitalComment on above:Performed By: #### [id number] #### [facility] [address], [place] [address]Pbfvfbre mean volume (Bld) [Entitic vol]9.2 fLNormal6.4-10.8 [facility] City HospitalComment on above:Performed By: #### [id number] #### [facility] [address] [place] [address]Nmfggczmi (Bld) [#/Vol]190.0 E9/FPnkprc268.0-500.0[facility] City HospitalComment on above:Performed By: #### [id number] #### [facility] [address] [place] [address]LFC (Bld) [#/Vol]3.8 E12/LLow4.3-5.9[facility] Comment on above:Performed By: #### [id number] #### [facility] [address] [place] [address]LVM corrected for nucl RBC Auto (Bld) [#/Vol]6.3 E9/LNormal 4.0-11.0[facility] City HospitalComment on above:Performed By: #### [id number] #### [facility] [address] [place] [address]YAGRTSONJWecycsq By: SYSTEM SYSTEM on 07-12-1395Hxbebfm [Mass/Vol]4.2 g/dLNormal3.3 - 5.0 gm/dLRemisol ChemAlbumin DL <= 20 mg/L (U) [Mass/Vol]0.7 mg/dLNormal0.0 - 1.9 mg/dLRemisol ChemAlbumin/Creatinine DL <= 20 mg/L (U) [Mass ratio]3.3 mg/gm CrNormal0.0 - 30.0 mg/gm CrRemisol ChemComment on above:Interpretive Data: 30-300 mg/g Cr indicates an increased risk for diabetic nephropathy. >300 mg/g Cr is consistent with clinical nephropathy.Albumin/Globulin [Mass ratio]1.7 {ratio}Normal1.1 - 2.2Remisol ChemALP [Catalytic activity/Vol]94 [iU]/vTxsnrv62 - 98 Int._Unit/LRemisol ChemALT No additional P-5'-P [Catalytic activity/Vol]14 [iU]/dNormal6 - 46 Int._Unit/LRemisol ChemAnion gap [Moles/Vol] 11 mmol/LNormal6 - 16 mEq/LRemisol ChemAST [Catalytic activity/Vol]17 [iU]/d Normal5 - 43 Int._Unit/LRemisol ChemBilirubin [Mass/Vol]0.5 mg/dLNormal0.0 - 1.1 mg/dLRemisol ChemCalcium [Mass/Vol]9.3 mg/dLNormal8.9 - 11.1 mg/dLRemisol Chem Chloride [Moles/Vol]103 mmol/ZPkroym707 - 111 mmol/LRemisol ChemCholesterol [Mass/Vol]108 mg/gYVkp182 - 200 mg/dLRemisol ChemCholesterol in HDL [Mass/Vol]41 mg/dLInvalid Interpretation CodeRemisol ChemComment on above:Result Comment: '>= 60 LOW RISK' '<= 40 HIGH RISK'Cholesterol in LDL [Mass/Vol]57 mg/dLNormal<=129mg/dLRemisol ChemCholesterol in VLDL [Mass/Vol]24 mg/dLNormal7 - 40 mg/dLRemisol ChemCO2 [Moles/Vol]28 mmol/IDycpnq32 - 31 mmol/LRemisol ChemCreatinine [Mass/Vol]1.7 mg/dLHigh0.5 - 1.3 mg/dLRemisol OpihnSQC52 mL/min/1.73 m2Low>=59mL/min/1.73 m2 Remisol ChemGlobulin (S) [Mass/Vol]2.5 g/dLNormal1.4 - 4.0 gm/dLRemisol Chem Glucose [Mass/Vol]179 mg/eGAuaukc06 - 199 mg/dLRemisol ChemPotassium [Moles/Vol] 4.9 mmol/LNormal3.5 - 5.3 mmol/LRemisol ChemProtein [Mass/Vol]6.7 g/dLNormal6.0 - 7.8 gm/dLRemisol ChemSodium [Moles/Vol]137 mmol/TBjulfs742 - 145 mmol/LRemisol ChemTriglyceride [Mass/Vol]118 mg/dLNormal<=149mg/dLRemisol ChemU Creatinine 214.1 mg/dLInvalid Interpretation CodeRemisol ChemUrea nitrogen [Mass/Vol]34 mg/dLHigh5 - 21 mg/dLRemisol ChemUrea nitrogen/Creatinine [Mass ratio]20 mg/mg Dkffwf12 - 20Remisol ChemCHEMISTRYOrdered By: Marci España on 96-55-1684JuM1r (Bld) [Mass fraction]6.7 %High<=5.9%[facility] ChemAutoSSCMPon 02-43-8411Uyyltlo [Mass/Vol]4.2 g/dLNormal3.3-5.0L[facility] City HospitalComment on above: Performed By: #### [id number] #### [facility] [address], [place] [address]Haxmbuv/Globulin (S) [Mass conc ratio]1.6Gdpbgv8.1-2.2FMercy Health Clermont HospitalComment on above:Performed By: #### [id number] #### [facility] [address], [place] [address]SDC [Catalytic activity/Vol]94 Int._Unit/BDixjuy76-93ZjfiwlLima City HospitalComment on above:Performed By: #### [id number] #### [facility] [address], [place] [address]XXS No additional P-5'-P [Catalytic activity/Vol]14 Int._Unit/L Normal6-46L[facility] City HospitalComment on above:Performed By: #### [id number] #### [facility] [address], [place] [address]Yqdaf gap [Moles/Vol]11 mmol/LNormal6-16L[facility] City HospitalComment on above:Performed By: #### [id number] #### [facility] [address], [place] [address]HXL [Catalytic activity/Vol]17 Int._Unit/LNormal5-43[facility] HospitalComment on above:Performed By: #### [id number] #### [facility] [address], [place] [address]Ayrqipwml [Mass/Vol]0.5 mg/dLNormal0.0-1.1FMercy Health Clermont HospitalComment on above:Performed By: #### [id number] #### [facility] [address], [place] [address]Whxuhot [Mass/Vol]9.3 mg/dLNormal8.9-11.1FMercy Health Clermont HospitalComment on above:Performed By: #### [id number] #### [facility] [address], [place] [address]Ederwvtr [Moles/Vol]103 mmol/FAqesim943-927HrcajbLima City HospitalComment on above:Performed By: #### [id number] #### [facility] [address], [place] [address]ZL3 [Moles/Vol]28 mmol/LCfbnbm53-28NrovbwLima City Hospital Comment on above:Performed By: #### [id number] #### [facility] [address], [place] [address]Kwwkngrnvn [Mass/Vol]1.7 mg/dLHigh0.5-1.3FMercy Health Clermont HospitalComment on above:Performed By: #### [id number] #### [facility] [address], [place] [address]Codsrlmk (S) [Mass/Vol]2.5 g/dLNormal1.4-4.0[facility] HospitalComment on above:Performed By: #### [id number] #### [facility] [address], [place] [address]Ilueffv [Mass/Vol]179 mg/rOYvwhzk10-084SqgpbqLima City HospitalComment on above:Performed By: #### [id number] #### [facility] [address], [place] [address]Sokmsynfw [Moles/Vol]4.9 mmol/LNormal3.5-5.3FMercy Health Clermont HospitalComment on above:Performed By: #### [id number] #### [facility] [address], [place] [address]Makpmii [Mass/Vol]6.7 g/dLNormal6.0-7.8[facility] HospitalComment on above:Performed By: #### [id number] #### [facility] [address] [place] [address]Knqzfv [Moles/Vol]137 mmol/FSmxgrc006-093AkvkdeLima City HospitalComment on above:Performed By: #### [id number] #### [facility] [address] [place] [address]Uber nitrogen [Mass/Vol]34 mg/dLHigh5-21L[facility] HospitalComment on above:Performed By: #### [id number] #### [facility] [address] [place] [address]Gxrc nitrogen/Creatinine [Mass ratio]20 No WmxcdRiocyw28-17 [facility] HospitalComment on above:Performed By: #### [id number] #### [facility] [address] [place] [address]NOHISMQUSDYweagyj By: SYSTEM SYSTEM on 37-03-6308Cebujphev/100 WBC (Bld)0.3 %Normal0.0 - 2.0 %Remisol HemeBasophils/Leukocytes Auto (Bld) [Pure # fraction]0.0 E9/LNormal0.0 - 0.2 E9/LRemisol HemeEosinophils (Bld) [#/Vol]0.1 E9/LNormal0.0 - 0.5 E9/LRemisol HemeEosinophils/100 WBC (Bld)1.6 %Normal0.0 - 8.0 %Remisol HemeErythrocyte distribution width (RBC) [Ratio]13.2 %Bgreqy33.9 - 14.2 %Remisol HemeHematocrit (Bld) [Volume fraction]37.5 %Low37.7 - 49.0 % Remisol HemeHemoglobin (Bld) [Mass/Vol]12.7 g/dLLow13.5 - 17.5 gm/dLRemisol Heme Lymphocytes (Bld) [#/Vol]1.6 E9/LNormal1.0 - 4.0 E9/LRemisol HemeLymphocytes/100 WBC (Bld)26.0 %Iluyit37.0 - 50.0 %Remisol HemeMCH (RBC) [Entitic mass]33.4 pg Xgufpt98.0 - 34.0 pgRemisol HemeMCHC (RBC) [Mass/Vol]33.9 g/aUBwqsfh06.4 - 36.0 gm/dLRemisol HemeMCV (RBC) [Entitic vol]98.6 pXVtedrn90.0 - 100.0 fLRemisol Heme Monocytes (Bld) [#/Vol]0.6 E9/LNormal0.2 - 1.0 E9/LRemisol HemeMonocytes/100 WBC (Bld)10.1 %Normal4.0 - 14.0 %Remisol HemeNeutrophils (Bld) [#/Vol]3.9 E9/L Normal2.0 - 7.5 E9/LRemisol HemeNeutrophils/100 WBC (Bld)62.0 %Vowajo71.0 - 75.0 %Remisol HemePlatelet mean volume (Bld) [Entitic vol]9.2 fLNormal6.4 - 10.8 fL Remisol HemePlatelets (Bld) [#/Vol]190.0 E9/UOfrehu285.0 - 500.0 E9/LRemisol HemeRBC (Bld) [#/Vol]3.8 E12/LLow4.3 - 5.9 E12/LRemisol HemeWBC corrected for nucl RBC Auto (Bld) [#/Vol]6.3 E9/LNormal4.0 - 11.0 E9/LRemisol WnirAhsF0oak 06-30-5544PgB6f (Bld) [Mass fraction]6.7 %High<=5.9[facility] Comment on above:Performed By: #### [id number] #### [facility] [address], [place] [address]Fgrrz Panelon [id number] [Mass/Vol]108 mg/dLLow 120-200[facility] HospitalComment on above:Performed By: #### [id number] #### [facility] [facility] [address], [place] [address]Nkebrwtkmqt in HDL [Mass/Vol]41 mg/dLInvalid Interpretation CodeLima City HospitalComment on above:Result Comment: '>= 60 LOW RISK' '<= 40 HIGH RISK'Performed By: #### [id number] #### [facility] [address], [place] [address]Xtfjraffqaz in LDL [Mass/Vol]57 mg/dLNormal<=129[facility] HospitalComment on above:Performed By: #### [id number] #### [facility] [address], [place] [address]Hedeygllprk in VLDL [Mass/Vol]24 mg/dLNormal7-40[facility] HospitalComment on above:Performed By: #### [id number] #### [facility] [address], [place] [address]Dvdhwfxxziyr [Mass/Vol]118 mg/dLNormal<=149[facility] HospitalComment on above:Performed By: #### [id number] #### [facility] [address], [place] [address]L MA/Cr Ratioon [id number] DL <= 20 mg/L (U) [Mass/Vol] 0.7 mg/dLNormal0.0-1.9[facility] HospitalComment on above:Performed By: #### [id number] #### [facility] [address], [place] [address]Vcckslv/Creatinine DL <= 20 mg/L (U) [Mass ratio]3.3 mg/gm Cr Normal.0-30.0[facility] City HospitalComment on above:Result Comment: 30-300 mg/g Cr indicates an increased risk for diabetic nephropathy. >300 mg/g Cr is consistent with clinical nephropathy.Performed By: #### [id number] #### [facility] [address], [place] [address]E Ekjkjspzva439.1 mg/dLInvalid Interpretation CodeLima City HospitalComment on above:Performed By: #### [id number] #### [facility] [address], [place] [address]tYJByx [id number] mL/min/1.73 m2Low>=59[facility] HospitalComment on above:Performed By: #### [id number] #### [facility] [address], [place] [address]Orgjss Medicine Office/Clinic Noteon [phone] Medicine Office/Clinic NoteFamonson developmental center Medicine Office/Clinic Note Chief Complaint Routine follow-up and concerns regarding severe gastrointestinal gas. HPI Staff Robbin is a 64 year old male presenting for one month follow up DM and meds FAHAD to initiate ozempic and oral agents for better control Do you have any of the following symptoms? Foot Exam: Sees a foot dr every 3 months Eye Exam: UTD Last A1C: No qualifying data available. Statin: atorvastatin 40mg CHhcking sugars at home forgot his log, 80 in the am and after eating around 200-250 questions/concerns: c/o terrible stomach gas and it's very foul smelling going on 6 weeks and his eyes are crusty in the mornings and itch History of Present Illness The patient is a 64-year-old male presenting with routine follow-up for diabetes management and gastrointestinal symptoms. He reports blood sugar levels averaging 80 in the morning but increasing to approximately 250 later in the day. His last glycated hemoglobin (A1c) was 6.1, [facility]. The patient states that he initiated Ozempic two months before the lastvisit, gradually increasing the dose to 0.5 mg. Insulin dosage was previously reduced from 54-55 units to 28 units. The current insulin type is Novolin 75/25. Plans are to increase semaglutide (Ozempic) to 1 mg and potentially reduce insulin to 20 units should blood glucose levels show improvement. The patient also reports severe gastrointestinal gas persisting for approximately six weeks. This symptom onset was not associated with dietary changes, although he has experimented with non-dairy creamers such as almond milk and oat milk without relief. The gas is described as unusually malodorous. The patient denies recent dietary changes that might contribute to this condition. He has not experienced associated cramping, but bowel movements are infrequent, occurring approximately every two weeks. Additionally, the patient has been on a 90-day supply of medications including pioglitazone and sertraline. He has a history of hyperlipidemia and type 2 diabetes mellitus with complications, which are managed with long-term insulin use. Kidney function has been monitored, and the patient is under nephrology care with planned follow-up in November. Review of Systems PHQ Score Initial Depression Screen Score: 1 SCORE Physical Exam Vitals & Measurements T: 36.2 ???C(Temporal Artery) HR: 82(Peripheral) RR: 16 BP: 112/66 SpO2: 92% HT: 69 in HT: 174.5 cm WT: 122.8 kg WT: 270.727 lb BMI: 40.33 General: alert, no acute distress ENMT: oral mucosa moist Cardiovascular: Regular rate and rhythm, normal peripheral perfusion Respiratory: Lungs clear to auscultation, respirations non labored Extremities: no deformity, no trauma Neurological: oriented x 4, level of consciousness appropriate for age, CN II- XII intact, motor strength equal & normal bilaterally, speech normal Abdomen: Soft, Non-tender, Non-distended, + Bowel sounds, reports excessive gas with foul odor, bowel movements once every two weeks Assessment/Plan 1. Type 2 diabetes mellitus with hyperlipidemia (E11.69: Type 2 diabetes mellitus with other specified complication) Increase semaglutide to 1 mg, monitor glucose levels, and adjust insulin dosage as discussed. Scheduled to reduce insulin to 20 units if glycemic levels permit. Continuation of continuous glucose monitoring to ensure optimal blood glucose control. Ordered: Comprehensive Metabolic Panel HgbA1c 2. HLD (hyperlipidemia) (E78.5: Hyperlipidemia, unspecified) Maintain lipid-lowering strategies. Ensure compliance with current medications. Periodic monitoringof lipid profile levels. Ordered: Comprehensive Metabolic Panel HgbA1c Lipid Panel 3. 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 Monitor for hypoglycemic episodes. Ordered: Comprehensive Metabolic Panel HgbA1c 4. BMI 40.0-44.9, adult (Z68.41: Body mass index [BMI] 40.0-44.9, adult) BMI education added. Ordered: Comprehensive Metabolic Panel HgbA1c 5. Morbid obesity with BMI of 40.0-44.9, adult (E66.01: Morbid (severe) obesity due to excess calories) Continue lifestyle modifications for weight management. Monitor BMI and provide nutritional guidance as needed. Ordered: Comprehensive Metabolic Panel HgbA1c 6. Former smoker (Z87.891: Personal history of nicotine dependence) Reinforce smoking cessation and reassess if any support is needed for cessation tools. Ordered: Comprehensive Metabolic Panel HgbA1c 7. Constipation, unspecified (K59.00) Suggestion of qbnp-mci-muuoxgr probiotics and incorporation of Metamucil for improved bowel habits.Advise increased hydration and dietary management to support gastrointestinal health. Orders: insulin lispro-insulin lispro protamine, See Instructions, 20units subq once a day, # 15 mL, Refills(s) 0, o (more content not included)...[facility] Health AdministrationComment on above:Result Comment: Electronically Signed By: Umesh Aquino MD\.br\Date and Time Signed: 10/30/24 11:00 ESTAmbulatory Visit Summaryon [id number] Visit SummaryAmbulatory Visit Summary ROBBIN BARTLETT [place] :1960 Visit Date:10/29/2024 Ambulatory Visit Instructions Your Diagnosis Encounter for initial annual wellness visit (AWV) in Medicare patient Bipolar disorder [facility] current use of insulin Type 2 diabetes mellitus with hyperlipidemia Obesity, morbid, BMI 40.0-49.9 HLD (hyperlipidemia), Hyperlipidemia, unspecified HTN (hypertension) Charcot joint of foot Advanced directives, counseling/discussion Your Care Team Attending Physician - Umesh Aquino MD Primary Care Physician - Ross MD, Umesh E. This Is Your Medications List [facility] Prescription (FREESTYLE ANIBAL 3 PLUS SENSOR) Mis Prescription (pen needels BD UF) atorvastatin (atorvastatin 40 mg Tab) chlorhexidine topical (chlorhexidine 0.12% mucous membrane liquid) etodolac (etodolac 400 mg Tab) fexofenadine (fexofenadine 180 mg Tab) furosemide (furosemide 20 mg Tab) gabapentin (gabapentin 300 mg Cap) glyBURIDE (GlyBURIDE (Eqv-Micronase) 5 mg oral tablet) insulin lispro-insulin lispro protamine (Insulin Lispro Protamine-Insulin Lispro Mix75/25 KwikPen subcutaneous suspension) lamotrigine (lamotrigine 100 mg Tab) losartan (losartan 50 mg Tab) lurasidone (lurasidone 120 mg oral tablet) metformin (metformin 1000 mg Tab) pimecrolimus topical (pimecrolimus Top Crm 30 gram) pioglitazone (pioglitazone 30 mg Tab) semaglutide (Ozempic 2 mg/3 mL (0.25 mg or 0.5 mg dose) subcutaneous solution) sertraline (sertraline 100 mg Tab) tizanidine (tiZANidine 4 mg Tab) Procedures Performed Arthroscopy of hip (11/08/2023), Colonoscopy (2016), Adenoidectomy, Appendectomy;, Arthroscopy of knee, Cholecystectomy, H/O splenectomy, Tonsillectomy. Discharge Vitals Heart Rate (Peripheral) 72 Blood Pressure 118/60 Height 174.5 cm Height 69 in Weight 122.19 kg Weight 269.383 lb BMI 40.13 What to do next Scheduled Follow-Up Appointments Monday 10:15 AM EST With: Umesh Aquino MD Where: [address] [address]- Monday 8:20 AM EST With: Where: [address] [address]- Monday 9:30 AM EST With: Where: [address] [address]- You Need to Complete the Following CBC w/ Auto Diff, Blood, Routine collect, 10/29/24, Order for future visit, Lab Collect, HTN (hypertension), Not Required, Print Label By Order Location Lipid Panel, Blood, Routine collect, 10/29/24, Order for future visit, Lab Collect, Hyperlipidemia,unspecified, Not Required, Print Label By Order Location Urine Microalbumin/Creatinine Ratio, Urine, Routine collect, 10/29/24, Order for future visit, Nurse collect, HTN (hypertension), Not Required, Print Label By Order Location Medications What How Much When Instructions Unchanged atorvastatin (atorvastatin 40 mg Tab) 1 Tablets By Mouth Every day Unchanged chlorhexidine topical (chlorhexidine 0.12% mucous membrane liquid) RINSE WITH 1/ 2 OUNCE TWICE A DAY AFTER BREAKFAST AND BEFORE BEDTIME *SPIT OUT DO NOT SWALLOW* Unchanged etodolac (etodolac 400 mg Tab) TAKE 1 TABLET BY MOUTH TWICE A DAY NEEDED FOR PAIN Unchanged fexofenadine (fexofenadine 180 mg Tab) See instructions TAKE 1 TABLET BY MOUTH EVERY DAY Unchanged furosemide (furosemide 20 mg Tab) 1 Tablets By Mouth Every day Unchanged gabapentin (gabapentin 300 mg Cap) TAKE 1 CAPSULE BY MOUTH IN THE MORNING, EVENING, AND BEFORE BEDTIME Unchanged glyBURIDE (GlyBURIDE (Eqv-Micronase) 5 mg oral tablet) TAKE 2 TABLETS BY MOUTH IN THE MORNING AND 1 IN THE EVENING Unchanged insulin lispro-insulin lispro protamine (Insulin Lispro Protamine- Insulin Lispro Mix75/ 25 KwikPen subcutaneous suspension) Unchanged lamotrigine (lamotrigine 100 mg Tab) TAKE 1 TABLET BY MOUTH EVERYDAY AT BEDTIME Unchanged losartan (losartan 50 mg Tab) Unchanged lurasidone (lurasidone 120 mg oral tablet) Unchanged metformin (metformin 1000 mg Tab) Unchanged Misc Prescription (FREESTYLE ANIBAL 3 PLUS SENSOR) USE 1 SENSOR BY OTHER ROUTE DAILY FOR 30 DAYS CHANGE SENSOR EVERY 15 DAYS Unchanged Misc Prescription (pen needels BD UF) See instructions BD UF III mini pen needles [id number] bid to inject insulin Unchanged pimecrolimus topical (pimecrolimus Top Crm 30 gram) Unchanged pioglitazone (pioglitazone 30 mg Tab) 1 Tablets By Mouth Every day Unchanged semaglutide (Ozempic 2 mg/ 3 mL (0.25 mg or 0.5 mg dose) subcutaneous solution) Unchanged sertraline (sertraline 100 mg Tab) 1 Tablets By Mouth Every day Unchanged tizanidine (tiZANidine 4 mg Tab) See instructions 1 tab(s) Oral at bedtime as needed for muscle spasms Allergies bee pollen (Swelling) penicillin (Rash) tetanus toxoid (Rash) Problems Ongo (more content not included)...[facility] Medicine Office/Clinic Noteon [phone] Medicine Office/Clinic NoteSouthwood Community Hospital Medicine Office/Clinic Note Chief Complaint Initial Medicare Wellness Review of Systems PHQ Score Initial Depression Screen Score: 1 SCORE Physical Exam Vitals & Measurements HR: 72(Peripheral) BP: 118/60 SpO2: 93% HT: 174.5 cm HT: 69 in WT: 122.19 kg WT: 269.383 lb BMI: 40.13 Assessment/Plan 1. Encounter for initial annual wellness visit (AWV) in Medicare patient (Z00.00: Encounter for general adult medical examination without abnormal findings) The patient was given a customized and personalized print out of all the current AHRQ USPSTF???s recommendations for preventative services and all current CDC recommended immunizations, relevant riskrecommendations and the following patient brochures were given. Reviewed Medicare Prevention Services checklist. CDC-Falls Prevention and home safety screening reviewed. Patient admits to falls in last 12 months,voices worry about falling. Exhibits no problems with sitting, standing or ambulation. Patient aware with keeping walk way area free of clutter to prevent tripping and/or falling. Patient reports completing PT at [facility] for falls. [place] Advance Directives reviewed. See #9. Patient denies any problems with ADL???s and Instrumental ADL???s. Cognitive screening completed with memory and clock face drawing. No deficits noted. Patient recited 3/3 memory words. Immunization record reviewed, discussed Shingrix vaccine with educational handout and availability.2 COVID vaccines have been administered, with 1 Booster received. Allergies and medications reviewed and up to date. No concerns with taking medication as prescribed. Reviewed OTC medications, medication list up to date. Blood tests were reviewed: Discussed what tests need to be updated. Labs were ordered, will have completed prior to next PCP visit. Labs to be [facility] with [facility]. No concerns with bowel/ bladder. Colonoscopy last completed about 6 years ago. Reviewed pain symptoms: back, rates pain as a 5 out of 10, Tylenol taken for back pain. Reviewed all outside providers that patient follows. Last visit summary notes available in chart and/or have been requested. Patient declines any signs or symptoms of depression at this time. 8 minutes spent with screening and documentation. PHQ2 screening score 1. Patient denies alcohol use. 8 minutes spent with screening and documentation. Audit score 0. Follow up scheduled with PCP, 10/30/2024 AWV has been scheduled, 10/29/2025 Medicare provides yearly screening for alcohol and depression concerns. This is completed during our Medicare wellness visit for those who do not have a current diagnosis of depression or concerns with alcohol use. I spent a total of 17 minutes on this date of service which included preparing to see the patient, face to face patient care, completing clinical documentation, obtaining and/or reviewing separately obtained history, counseling and educating the patient with handouts. Explanations were provided with reviewing questionnaires. AUDIT risk assessment screening completed, risk score (0)with patient denying concerns with use. Completed PHQ-2 risk assessment for depression with risk score (1), negative findings. Patient has been reminded to notify the provider if there would be a change or concerns with symptoms with fear, unable to sleep, worrying too much or feeling down and/or sad with lost of interest with daily activities. Will continue to monitor with screening yearly during Medicare wellness visits. 2. Bipolar disorder (F31.9: Bipolar disorder, unspecified) Patient taking Sertraline daily, voices medication is effective. Follows up with PCP with medication management and symptom control. PHQ-9 risk assessment completed with negative findings. Total riskscore is 4. Patient denies any suicidal ideations at this time. Reviewed additional signs/symptoms to monitor for and report to provider. Patient also follows Dr. Zamora, behavioral health as directed and prn. 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 Educational handout reviewed with proper storage and/or care needed for insulin. Follows up with PCP and Nephrology with needed labs, DM supplies and dosage adjustments as needed. Reviewed available sites that can be used to administerInsulin, patient voices understanding. 4. Type 2 diabetes mellitus with hyperlipidemia (E11.69: Type 2 diabetes mellitus with other specified complication) Patient is compliant on current DM oral medications and insulin. Patient does monitors BS at home: DM stoplight handout reviewed with s/s to monitor for and report to PCP. Discussed ADA dietary recommendations with low carbs and reduce sugar intake. Patient encouraged to increase daily physical activity, adequate water intake and maintain a healthy weight. Follows up with yearly DM eye exams, last visit notes have been requested. see #6 5. Obesity, morbid, BMI 40.0-49.9 (E66.01: (more content not included)...Normal [facility] HospitalComment on above:Result Comment: Electronically Signed By: Norma Cheung\.br\Date and Time Signed: 10/29/24 13:34 EST\.br\Electronically Co-Signed By: Kaylah Toribio\.br\Date and Time Co-Signed: 10/29/24 12:10 ESTAmbulatory Visit Summaryon [id number] Visit Summary Ambulatory Visit Summary ROBBIN BARTLETT :1960 Visit Date:09/26/2024 Ambulatory Visit Instructions Your Diagnosis Type 2 diabetes mellitus HLD (hyperlipidemia) Bipolar disorder Neuropathy HTN (hypertension) Charcot joint of foot Your Care Team Attending Physician - Umesh Aquino MD Primary Care Physician - Umesh Aquino MD. This Is Your Medications List atorvastatin (atorvastatin 40 mg Tab) etodolac (etodolac 400 mg Tab) fexofenadine (fexofenadine 180 mg Tab) furosemide (furosemide 20 mg Tab) gabapentin (gabapentin 300 mg Cap) glyBURIDE (GlyBURIDE (Eqv-Micronase) 5 mg oral tablet) insulin lispro-insulin lispro protamine (Insulin Lispro Protamine-Insulin Lispro Mix75/25 KwikPen subcutaneous suspension) losartan (losartan 50 mg Tab) lurasidone (lurasidone 120 mg oral tablet) metformin (metformin 1000 mg Tab) pimecrolimus topical (pimecrolimus Top Crm 30 gram) pioglitazone (pioglitazone 30 mg Tab) semaglutide (Ozempic 2 mg/3 mL (0.25 mg or 0.5 mg dose) subcutaneous solution) sertraline (sertraline 100 mg Tab) Procedures Performed Appendectomy;, Arthroscopy of knee, H/O splenectomy, Tonsillectomy. Discharge Vitals Temperature (Tympanic) 36.4 ???C Heart Rate (Peripheral) 74 Respiratory Rate 18 Blood Pressure 136/80 Height 174.5 cm Height 69 in Weight 123.8 kg Weight 272.932 lb BMI 40.66 What to do next Scheduled Follow-Up Appointments Monday 9:30 AM EST With: Where: [address] [address]- Monday 10:45 AM EST With: Umesh Aquino MD Where: [address] [address]- Medications What How Much When Instructions Unchanged atorvastatin (atorvastatin 40 mg Tab) 1 Tablets By Mouth Every day Unchanged etodolac (etodolac 400 mg Tab) TAKE 1 TABLET BY MOUTH TWICE A DAY NEEDED FOR PAIN Unchanged fexofenadine (fexofenadine 180 mg Tab) See instructions TAKE 1 TABLET BY MOUTH EVERY DAY Unchanged furosemide (furosemide 20 mg Tab) 1 Tablets By Mouth Every day Unchanged gabapentin (gabapentin 300 mg Cap) TAKE 1 CAPSULE BY MOUTH IN THE MORNING, EVENING, AND BEFORE BEDTIME Unchanged glyBURIDE (GlyBURIDE (Eqv-Micronase) 5 mg oral tablet) TAKE 2 TABLETS BY MOUTH IN THE MORNING AND 1 IN THE EVENING Unchanged insulin lispro-insulin lispro protamine (Insulin Lispro Protamine- Insulin Lispro Mix75/ 25 KwikPen subcutaneous suspension) Unchanged losartan (losartan 50 mg Tab) Unchanged lurasidone (lurasidone 120 mg oral tablet) Unchanged metformin (metformin 1000 mg Tab) Unchanged pimecrolimus topical (pimecrolimus Top Crm 30 gram) Unchanged pioglitazone (pioglitazone 30 mg Tab) 1 Tablets By Mouth Every day Unchanged semaglutide (Ozempic 2 mg/ 3 mL (0.25 mg or 0.5 mg dose) subcutaneous solution) Unchanged sertraline (sertraline 100 mg Tab) 1 Tablets By Mouth Every day Allergies penicillin (Rash) tetanus toxoid (Rash) Problems Ongoing - Any problem that you are currently receiving treatment for. Bipolar disorder Charcot joint of foot HLD (hyperlipidemia) HTN (hypertension) Neuropathy Type 2 diabetes mellitus Patient Survey You may receive a survey via text or e-mail asking about your office visit. Please share your experience with us by completing your survey. We appreciate your feedback and thank you for choosing us for your care. [facility] Medicine Office/Clinic Noteon [id number] Medicine Office/Clinic NoteSouthwood Community Hospital Medicine Office/Clinic Note Chief Complaint Establish Care HPI Staff Robbin is a 64 year old male presenting to establish care Establish Care: History: DM, bipolar History of seeing any specialist: Psychiatrist When was your last doctors visit: less than a month ago Last provider: Elliot Any recent labs: less than a month ago Health Maintenance UTD: Colonoscopy: 6yrs ago Acute: Current issues/complaints:Does need annual medicaid appt. Does have a skin issue on forehead. Seen Derm on Monday. Currently has some coughing. History of Present Illness Patient is here to establish care with me today. No acute issues at this time. Patient has a long history of medical conditions. Patient states he is stable on all medications. No acute issues. Review of Systems PHQ Score Initial Depression Screen Score: 0 SCORE Physical Exam Vitals & Measurements T: 36.4 ???C(Tympanic) HR: 74(Peripheral) RR: 18 BP: 136/80 SpO2: 99% HT: 69 in HT: 174.5 cm WT: 123.8 kg WT: 272.932 lb BMI: 40.66 General: alert, no acute distress ENMT: oral mucosa moist, Cardiovascular: regular rate and rhythm, normal peripheral perfusion Respiratory: Lungs CTA, respirations non labored Extremities: no deformity, no trauma Neurological: oriented x 4, LOC appropriate for age, CN II-XII intact, motor strength equal & normal bilaterally, speech normal Abdomen: Soft, Nontender, Non-distended, + BS Assessment/Plan 1. Type 2 diabetes mellitus (E11.9: Type 2 diabetes mellitus without complications) At this time the patient's blood sugars look to be controlled. Have reached out for records at the patient's previous office. Labs that we did did get were within normal limits. Concerned that the patient may not be on the right medication. Patient discussed taking 50 units of insulin before bed. He states it may be Lantus however Lantus has not been on his medication list. I am concerned that heis taking the wrong medication. Will work to bring down the insulin and use orals or semaglutide for better control. Will see the patient back in a month. 2. HLD (hyperlipidemia) (E78.5: Hyperlipidemia, unspecified) Continue on a statin as before. 3. Bipolar disorder (F31.9: Bipolar disorder, unspecified) Sees Dr. Zamora. Pt is happy with treatment. Wanting counseling from [facility]. Dr. Zamora is following up with that. 4. Neuropathy (G62.9: Polyneuropathy, unspecified) On Gabapentin. No issues at this time. 5. HTN (hypertension) (I10: Essential (primary) hypertension) Blood pressure is great today. No concerns. Continue on meds as before. 6. Charcot joint of foot (M14.679: Charcot's joint, unspecified ankle and foot) Sees podiatry at [facility]. Orders: fexofenadine, See Instructions, TAKE 1 TABLET BY MOUTH EVERY DAY, # 50 tab(s), Refills(s) 1, other reason (Rx) At this time we will review over medications. We will start moving forward with changing medications when we know where the patient is. That is why we will follow-up in 1 month. Follow-up No qualifying data available Patient Education Hypertension, Adult Problem List/Past Medical History Ongoing Bipolar disorder Charcot joint of foot HLD (hyperlipidemia) HTN (hypertension) Neuropathy Type 2 diabetes mellitus Historical No qualifying data Procedure/Surgical History Arthroscopy of hip (11/08/2023), Colonoscopy (2016), Adenoidectomy, Appendectomy;, Arthroscopy of knee, Cholecystectomy, H/O splenectomy, Tonsillectomy. Medications atorvastatin 40 mg Tab, 40 mg= 1 tab(s), Oral, Daily chlorhexidine 0.12% mucous membrane liquid etodolac 400 mg Tab fexofenadine 180 mg Tab, See Instructions, 1 refills FREESTYLE ANIBAL 3 PLUS SENSOR furosemide 20 mg Tab, 20 mg= 1 tab(s), Oral, Daily gabapentin 300 mg Cap GlyBURIDE (Eqv-Micronase) 5 mg oral tablet Insulin Lispro Protamine-Insulin Lispro Mix75/25 KwikPen subcutaneous suspension lamotrigine 100 mg Tab losartan 50 mg Tab lurasidone 120 mg oral tablet metformin 1000 mg Tab Ozempic 2 mg/3 mL (0.25 mg or 0.5 mg dose) subcutaneous solution pimecrolimus Top Crm 30 gram pioglitazone 30 mg Tab, 30 mg= 1 tab(s), Oral, Daily sertraline 100 mg Tab, 100 mg= 1 tab(s), Oral, Daily Allergies penicillin (Rash) tetanus toxoid (Rash) Social History Tobacco Former smoker, quit more than 30 days ago Tobacco Use:. Never Smokeless Tobacco Use:. Cigarettes, Household tobacco concerns: No. Yes, 09/26/2024 Family History Anxiety: Mother and Father. Diabetes: Father.[facility] Health AdministrationComment on above:Result Comment: Electronically Signed By: Miles FINE, Umesh Peterson.br\Date and Time Signed: 09/26/24 14:38 ESTALL BASIC METABOLIC PANELon 13-63-7870Vjjrk gap [Moles/Vol] 15.1 mmol/LNOMS HealthcareCalcium [Mass/Vol]9.5 mg/dL8.5 - 10.1 mg/dLNOMS HealthcareChloride [Moles/Vol]106 mmol/L98 - 107 mmol/LNOMS HealthcareCO2 [Moles/Vol]25.2 mmol/L21.0 - 32.0 mmol/LNOMS HealthcareCreatinine [Mass/Vol]1.42 mg/dLHigh0.70 - 1.30 mg/dLNOMS HealthcareGFR/1.73 sq M.predicted CKD-EPI (S/P/Bld) [Vol rate/Area]>60>=60 mL/min/1.73m 2NOMS HealthcareGlucose [Mass/Vol] 51 mg/dLLow74 - 106 mg/dLNOMS HealthcareInterpretation and review of laboratory resultsAbnormalNOMS HealthcarePotassium [Moles/Vol]4.3 mmol/L3.5 - 5.1 mmol/L NOMS HealthcareSodium [Moles/Vol]142 mmol/L136 - 145 mmol/LNOMS HealthcareTBH EGFR-NON AF UFHPGTMP95Iye>=60 mL/min/1.73m 2NOMS HealthcareUrea nitrogen [Mass/Vol]20 mg/dLHigh7.0 - 18.0 mg/dLNOMS HealthcareUrea nitrogen/Creatinine [Mass ratio]14.1 mg/mgNOMS HealthcareCLINISYNCNOMS HealthcareNo Panel Informationon 56-75-8191OWLR HealthcareXR Hip - right 3 Viewson 12-22-2023 Imaging Result:NOMS HealthcareNOMS HealthcareRadiology Study observation (narrative)[facility] HospitalCoding Summaryon 89-05-4147Saecqx SummaryMLBase 64 DilmizehZZc3tXb+PGhlYWQ+JL0LIWMxX22rnPNsoN0cD6HFSWxAAnndNVPGIDrNJmIykuPrEM8ojWVp ZXJu [file] cmR (more content not included)...[facility]onAnesthesia Noteon 49-93-9610Xxeyqiqedn [id number]#1.00[facility] CenterConsent Formson 82-94-5617Mgjfshs Forms [id number]#1.00[facility] Outside Recordson 61-51-1711Ocoiuai Records [id number]#1.00[facility] Provider Orderson 69-17-2515Xtkjvtne Orders [id number]#1.00[facility] Telemetry Stripson 44-75-1650Zcradikgv Strips [id number]#1.00[facility].Auto Diff 190-42-2694Ntqi Pine %7 %Normal1-12[facility] CenterComment on above: Performed By: #### [id number] #### [facility] (DEFAULT) [address] [place] [address] 54423Utmd Abs#0.0 b50Erxiap1.0-0.2[facility] HospitalComment on above:Performed By: #### [id number] #### [facility] (DEFAULT) [address] [place] [address] 79477Xrepavnfs/100 WBC (Bld)0.3 %Normal0.2-2.0[facility] Comment on above:Performed By: #### [id number] #### [facility] (DEFAULT) [address] [place] [address] 12681Oww Abs#0.2 q48Smxage4.0-0.4[facility] HospitalComment on above:Performed By: #### [id number] #### [facility] (DEFAULT) [address] [place] [address] 32548Slalvdrzmzq/100 WBC (Bld)3.3 %Normal0.9-4.0[facility] HospitalComment on above:Performed By: #### [id number] #### [facility] (DEFAULT) [address] [place] [address] 64281Nqckb Abs#0.6 s46Zgc5.3-2.9[facility] HospitalComment on above:Performed By: #### [id number] #### [facility] (DEFAULT) [address] [place] [address] 04810Wjxuncpbxpe/100 WBC (Bld)9 %Ocg65-96YgudrvfrUniversity Hospitals Portage Medical Center Comment on above:Performed By: #### [id number] #### [facility] (DEFAULT) [address] [place] [address] 02741Lypc Abs#0.5 w80Wbcrle5.0-0.8[facility] HospitalComment on above:Performed By: #### [id number] #### [facility] (DEFAULT) [address] [place] [address] 41710Dtwk Abs#5.3 e26Nhzcjm1.5-9.2[facility] HospitalComment on above:Performed By: #### [id number] #### [facility] (DEFAULT) [address] [place] [address] 75023Bmxuwxoavve/100 WBC (Bld)80 %Dnbcge09-12Pwewpmzi Hospital Comment on above:Performed By: #### [id number] #### [facility] (DEFAULT) [address] [place] [address] 70319ZZW w/ Auto Diffon 57-69-3461Fqxgdxakfpg distribution width (RBC) [Ratio]13.2 %Srjpfq04.5-15.0[facility] HospitalComment on above: Performed By: #### [id number] #### [facility] (DEFAULT) [address] [place] [address] 47551Akqkehwekr (Bld) [Volume fraction]27.0 %Low34.8-51.9 [facility] CenterComment on above:Performed By: #### [id number] #### [facility] (DEFAULT) [address] [place] [address] 76568Lrdztemsiu (Bld) [Mass/Vol]9.6 g/dLLow11.8-17.7[facility] CenterComment on above:Performed By: #### [id number] #### [facility] (DEFAULT) [address] [place] [address] 56702Sow Diff?AutoInvalid Interpretation [facility] Comment on above:Performed By: #### [id number] #### [facility] (DEFAULT) [address] [place] [address] 60167RZD (RBC) [Entitic mass]35 tzQaho98-67Ynslccnx Hospital Comment on above:Performed By: #### [id number] #### [facility] (DEFAULT) [address] [place] [address] 12438DANQ (RBC) [Mass/Vol]36 g/zHJsjfei66-87Jllvjsov Hospital Comment on above:Performed By: #### [id number] #### [facility] (DEFAULT) [address] [place] [address] 39366JRV (RBC) [Entitic vol]97 gZHqxiwe53-609Laiskpgm Hospital Comment on above:Performed By: #### [id number] #### [facility] (DEFAULT) [address] [place] [address] 77552Abspzwue123 n80Javpga726-222Igthzwbj HospitalComment on above:Performed By: #### [id number] #### [facility] (DEFAULT) [address] [place] [address] 75087Lvtvsakz mean volume (Bld) [Entitic vol]8.6 fLNormal 6.3-10.2MTriHealth McCullough-Hyde Memorial HospitalComment on above:Performed By: #### [id number] #### [facility] (DEFAULT) [address] [place] [address] 86343FAU5.77 x48Unv3.70-5.30[facility] HospitalComment on above: Performed By: #### [id number] #### [facility] (DEFAULT) [address] [place] [address] 79146SDP7.7 h92Uqpdjf4.5-10.5[facility] HospitalComment on above: Performed By: #### [id number] #### [facility] (DEFAULT) [address] [place] [address] 13859Umuosctvoit Panel Standardon 69-83-0110Iunel gap [Moles/Vol]11.3 mmol/LNormal5.0-19.0[facility] HospitalComment on above:Performed By: #### [id number] #### [facility] (DEFAULT) [address] [place] [address] 55764Hawcoyfv [Moles/Vol]101 mmol/DMgpagg925-729Mforflvg HospitalComment on above:Performed By: #### [id number] #### [facility] (DEFAULT) [address] [place] [address] 50439GQ4 [Moles/Vol]27 mmol/YEmrqyu06-70Timskdpr Hospital Comment on above:Performed By: #### [id number] #### [facility] (DEFAULT) [address] [place] [address] 14800Zwrsmeaam [Moles/Vol]4.3 mmol/LNormal3.6-5.1M[facility] HospitalComment on above:Performed By: #### [id number] #### [facility] (DEFAULT) [address] [place] [address] 17421Nzzuii [Moles/Vol]135.0 mmol/JWjn275.0-144.0[facility] HospitalComment on above:Performed By: #### [id number] #### [facility] (DEFAULT) [address] [place] [address] 07039Ctwkplpfe Patient Summaryon 05-66-3373Hiyyutrdj Patient SummaryMer[facility] Health St[facility] [address] [place] [address] Patient Discharge Instructions Name: ROBBIN BARTLETT : 1960 Patient Address: [address] [place], [place] [address] Primary Care Provider: Name: Idalmis Adam CNP After you are discharged if you find you have any questions, please, call [phone] ext [phone] to speak to a nurse. The Pharmacy at [facility] is open Monday through Monday from 9A to 6P and Monday and Monday from 9A to 5P Discharge Diagnosis: 1:S/P total right hip arthroplasty; 2:DM2 (diabetes mellitus, type 2); 3:HTN (hypertension); 4:Depression; 5:Hyperlipidemia Prescription Information: If you have been given a prescription for narcotics, seek immediate medical attention if you have any difficulty breathing or any sudden status changes such as confusion andsleepiness. If you or anyone you know is experiencing suicidal thoughts, mental health, alcohol and/or drug addiction problems; contact the Mental Health & Recovery [facility] 05/06 Crisis Hotline -text 4hope to 741741. If you received any narcotics, sedation, or [...] business decisions or sign any legal documents [facility] would like to thank you for allowing us to assist you with your healthcare needs.The following includes patient education materials and information regarding your injury/illness. ROBBIN BARTLETT has been given the following list of follow-up instructions, prescriptions, and patient education materials: Follow-up Instructions With: Address: When: Idalmis Adam [address] [place] [address] Business (1) With: Address: When: Dejan Burt [address] [place] [address], [address] [place] [address] Business (1) 11/22/2023 10:00 AM [...] (given by mouth) At bedtime as needed musclespasm. No Longer Take the Following Medications ibuprofen [...] Medical Equipment for Prescriptio (more content not included)...Normal [facility] Glucose Levelon 24-09-0572Tcyeodn [Mass/Vol]245 mg/dL53 [address] StreetComment on above:Performed By: #### [id number] ####[facility] (DEFAULT)[address] [place] [address] 47816Qvmnguk [Mass/Vol]195 mg/mWBzai86-474Kdkvlwtt05 Pearson StreetComment on above:Performed By: #### [id number] ####[facility] (DEFAULT)[address] [place] [address] 90190Tjuuxqqx Noteon 74-18-1922Sismjvun NoteI have personally reviewed the patient's medication list upon discharge including, prescription medications, OTC products, vitamins and supplements. Below are the following medications the patient isdischarged on. Medications That Were Updated - Follow [...] (given by mouth) At bedtime as needed musclespasm. No Longer Take the Following Medications ibuprofen (ibuprofen 600 mg oral tablet) TAKE 1 TABLET BY MOUTH TWICE DAILY NEEDED WITH FOOD. Discharge Med Rec Notes: Reviewed admission medication list against external fill history and available BUSINESS OFFICE COORDINATOR medication history to ensure accuracy. Reviewed regimen upon discharge which is appropriateand correct. [Electronically Signed on: 11/10/2023 11:26 EST] Gino Cortes [Verified on: 11/10/2023 11:26 EST] Gino Cortes ANormalMer[facility] Health St[facility] Hospital.Auto Diff 1on 27-13-4306Fmor Pine %9 % Normal1-12Magrket[facility] health [facility] campus HospitalComment on above:Performed By: #### [id number] #### [facility] (DEFAULT) [address] [place] [address] 63581Moph Abs#0.0 z16Jqxyww4.0-0.2Magrkettering health main campus HospitalComment on above:Performed By: #### [id number] #### [facility] (DEFAULT) [address] [place] [address] 78578Jfwenkucn/100 WBC (Bld)0.1 %Low0.2-2.0[facility] Hospital Comment on above:Performed By: #### [id number] #### [facility] (DEFAULT) [address] [place] [address] 43060Tdz Abs#0.1 x33Azgefv5.0-0.4[facility] HospitalComment on above:Performed By: #### [id number] #### [facility] (DEFAULT) [address] [place] [address] 49572Axmwfcylzua/100 WBC (Bld)1.0 %Normal0.9-4.0[facility] HospitalComment on above:Performed By: #### [id number] #### [facility] (DEFAULT) [address] [place] [address] 28064Gqtbd Abs#0.4 m46Yor4.3-2.9[facility] HospitalComment on above:Performed By: #### [id number] #### [facility] (DEFAULT) [address] [place] [address] 52920Wxsvewmkvny/100 WBC (Bld)6 %Ozr75-46Zqokiine Hospital Comment on above:Performed By: #### [id number] #### [facility] (DEFAULT) [address] [place] [address] 40222Fase Abs#0.6 t00Lpovzx0.0-0.8[facility] HospitalComment on above:Performed By: #### [id number] #### [facility] (DEFAULT) [address] [place] [address] 10599Ifkc Abs#6.1 i67Etoycu3.5-9.2[facility] HospitalComment on above:Performed By: #### [id number] #### [facility] (DEFAULT) [address] [place] [address] 73049Utejkyqfktm/100 WBC (Bld)84 %Mzmvxo92-43Sjgdpjgq Hospital Comment on above:Performed By: #### [id number] #### [facility] (DEFAULT) [address] [place] [address] 60048QVI w/ Auto Diffon 67-14-5617Weslyzrneei distribution width (RBC) [Ratio]13.4 %Qrplel80.5-15.0[facility] Medical CenterComment on above:Order Comment: I spoke with Petrona Stone RN via person to person. I had asked if I could get this blood work before 0600. She said that it was okay. 11/09/2023 04:43:50 ESTPerformed By: #### [id number] #### [facility] (DEFAULT) [address] [place] [address] 83696Eujkvhbdsi (Bld) [Volume fraction]26.7 %Low34.8-51.9 [facility] CenterComment on above:Order Comment: I spoke with Petrona Stone RN via person to person. I had asked if I could get this blood work before 0600. She said that it was okay. 11/09/2023 04:43:50 ESTPerformed By: #### [id number] #### [facility] (DEFAULT) [address] [place] [address] 46810Eocrsbcwdh (Bld) [Mass/Vol]9.6 g/dLLow11.8-17.7[facility] HospitalComment on above:Order Comment: I spoke with Petrona Stone RN via person to person. I had asked if I could get this blood work before 0600. She said that it was okay. 11/09/2023 04:43:50 ESTPerformed By: #### [id number] #### [facility] (DEFAULT) [address] [place] [address] 82985Evm Diff?AutoInvalid Interpretation CodeUniversity Hospitals [facility] Medical Center Comment on above:Order Comment: I spoke with Petrona Stone RN via person to person. I had asked if I could get this blood work before 0600. She said that it was okay. 11/09/2023 04:43:50 ESTPerformed By: #### [id number] #### [facility] (DEFAULT) [address] [place] [address] 69022IJE (RBC) [Entitic mass]35 gtYrdc86-93Ccfynigc Hospital Comment on above:Order Comment: I spoke with Petrona Stone RN via person to person. I had asked if I could get this blood work before 0600. She said that it was okay. 11/09/2023 04:43:50 ESTPerformed By: #### [id number] #### [facility] (DEFAULT) [address] [place] [address] 96226KBED (RBC) [Mass/Vol]36 g/aFKreqfv40-45Fiizaszf Hospital Comment on above:Order Comment: I spoke with Petrona Stone RN via person to person. I had asked if I could get this blood work before 0600. She said that it was okay. 11/09/2023 04:43:50 ESTPerformed By: #### [id number] #### [facility] ([facility] [address] [place] [address] 22876PNP (RBC) [Entitic vol]97 rBPisnqa61-084Vuutfbti Hospital Comment on above:Order Comment: I spoke with Petrona Stone RN via person to person. I had asked if I could get this blood work before 0600. She said that it was okay. 11/09/2023 04:43:50 ESTPerformed By: #### [id number] #### [facility] (DEFAULT) [address] [place] [address] 43338Oamaoizg431 i52Egvpcm630-994Fxapkqgm HospitalComment on above:Order Comment: I spoke with Petrona Stone RN via person to person. I had asked if I could get this blood work before 0600. She said that it was okay. 11/09/2023 04:43:50 ESTPerformed By: #### [id number] #### [facility] (DEFAULT) [address] [place] [address] 95897Zxjluexj mean volume (Bld) [Entitic vol]8.8 fLNormal 6.3-10.2[facility] HospitalComment on above:Order Comment: I spoke with Petrona Stone RN via person to person. I had asked if I could get this blood work before 0600. She said that it was okay. 11/09/2023 04:43:50 ESTPerformed By: #### [id number] #### [facility] (DEFAULT) [address] [place] [address] 03735PYA5.76 s17Ffs9.70-5.30[facility] CenterComment on above: Order Comment: I spoke with Petrona Stone RN via person to person. I had asked if I could get this blood work before 0600. She said that it was okay. 11/09/2023 04:43:50 ESTPerformed By: #### [id number] #### [facility] (DEFAULT) [address] [place] [address] 04362CRM2.2 r72Qfsxvq2.5-10.5[facility] HospitalComment on above: Order Comment: I spoke with Petrona Stone RN via person to person. I had asked if I could get this blood work before 0600. She said that it was okay. 11/09/2023 04:43:50 ESTPerformed By: #### [id number] #### [facility] (DEFAULT) [address] [place] [address] 39052Opuhhhfgipb Panel Standardon 10-38-2998Gsfdd gap [Moles/Vol]13.3 mmol/LNormal5.0-19.0[facility] HospitalComment on above:Order Comment: I spoke with Petrona Stone RN via person to person. I had asked if I could get this blood work before 0600. She said that it was okay. 11/09/2023 04:43:50 ESTPerformed By: #### [id number] #### [facility] (DEFAULT) [address] [place] [address] 68828Slbgymhl [Moles/Vol]101 mmol/NNxggnj324-099Qvtpykle HospitalComment on above:Order Comment: I spoke with Petrona Stone RN via person to person. I had asked if I could get this blood work before 0600. She said that it was okay. 11/09/2023 04:43:50 ESTPerformed By: #### [id number] #### [facility] (DEFAULT) [address] [place] [address] 19472WU6 [Moles/Vol]26 mmol/NNroqvk29-14Lpmdtdhh Hospital Comment on above:Order Comment: I spoke with Petrona Stone RN via person to person. I had asked if I could get this blood work before 0600. She said that it was okay. 11/09/2023 04:43:50 ESTPerformed By: #### [id number] #### [facility] (DEFAULT) [address] [place] [address] 28608Ofmnfgkmh [Moles/Vol]4.3 mmol/LNormal3.6-5.1[facility] HospitalComment on above:Order Comment: I spoke with Petrona Stone RN via person to person. I had asked if I could get this blood work before 0600. She said that it was okay. 11/09/2023 04:43:50 ESTPerformed By: #### [id number] #### [facility] (DEFAULT) [address] [place] [address] 54749Pzaraa [Moles/Vol]136.0 mmol/XDfaqhm373.0-144.0[facility] HospitalComment on above:Order Comment: I spoke with Petrona Stone RN via person to person. I had asked if I could get this blood work before 0600. She said that it was okay. 11/09/2023 04:43:50 ESTPerformed By: #### [id number] #### [facility] (DEFAULT) [address] [place] [address] 02367EIEO Postoperative Recordon 44-15-2092HAXG Postoperative RecordMAGR Phase II Record Summary Primary Physician: JACLYN SNELL DO Finalized Date/Time: 11/09/23 08:48:08 Pt. Name: ROBBIN BARTLETT ALINE Cronin/Sex: 1960 MALE Med Rec #: [id number] Physician: JACLYN SNELL DO Financial #: [id number] Pt. Type: O Room/Bed: [facility]/ Admit/Disch: 11/08/23 08:03:44 - Institution: Phase II Case Times MAGR Pre-Care Text: Patient is free from s/s of injury. Patient remains free from compromised physical state related tosurgery or anesthesia. Patient comfort maintained. Patient/family verbalize [...] Signatures Signed By: Conchita Siegel RN 11/09/23 08:48[facility]PO[facility] Glucose Levelon 05-99-9968Kcsxcwu [Mass/Vol]235 mg/rCEfgb63-636Ysnmlnvd05 Pearson StreetComment on above:Performed By: #### [id number] #### [facility] (DEFAULT) [address] [place] [address] 93077Lfvwyho [Mass/Vol]177 mg/yHDlyk80-737Vgshsjpr[address] Comment on above:Performed By: #### [id number] #### [facility] (DEFAULT) [address] [place] [address] 52215Yfiagdb [Mass/Vol]224 mg/lZJvzo56-774Wajplwct[address] Comment on above:Performed By: #### [id number] ####[facility] (DEFAULT)[address] [place] [address] 82055Jhqlybk [Mass/Vol]196 mg/dL53 [address] StreetComment on above:Performed By: #### [id number] #### [facility] (DEFAULT) [address] [place] [address] 17035Gyvtxhd [Mass/Vol]163 mg/kNJxqb26-122Qndvcabp[address] Comment on above:Performed By: #### [id number] #### [facility] (DEFAULT) [address] [place] [address] 23951Npuuhhkc Note - Nurseon 71-58-4297Hqnlzgvi Note - Nurse Patient calls to use restroom. SBA assist to toilet, but toilet elevator is too narrow for patient and pushing on hip, causing discomfort. Charge goes to get commode instead and patient assisted backto bed. Patient diaphoretic and thinks he has a fever, temp was 98.3F. Patients sugar checked and is 163. Patient states his ice pack is warm and needs to be changed, but jesters to his dressing (Icepack had been on couch). Despite this, patient A/O x4. Patient asked if he would like to attempt touse restroom again, patient declines. Patient states he [...] Boyd RN [Verified on: 11/09/2023 04:20 EST] Oliver HENRY, [facility] Noteon 11-08-2023 Anesthesia NotePatient: ROBBIN BARTLETT Age: 63 years Sex: MALE : 1960 Associated Diagnoses: None Author: Pérez Maguire MD Postoperative Information Post Operative Note Health Status Allergies: Allergic Reactions (All) Unknown Penicillin- No reactions were documented. Tetanus toxoid- No reactions were documented. Problem list (past medical history): All Problems Diabetes / SNOMED CT 729844704 / Confirmed Acute postoperative pain of right hip / SNOMED CT 29685505 / Confirmed Apnea, sleep / SNOMED CT 689091810 / Confirmed Physical Examination VS/Measurements Vital Signs (last 24 hrs) Last Charted Heart Rate Monitored 90 bpm (NOV 08 13:38) Resp Rate L 12 br/min (NOV 08 13:38) SBP 138 mmHg (NOV 08 13:38) DBP 71 mmHg (NOV 08:38) Assessment Anesthetic outcome No anesthetic complications noted. [...] [Verified on: 11/08/2023 13:55 EST] Pérez Maguire MDSelect Medical Specialty Hospital - CantonAnesthesi NotePatient: ROBBIN BARTLETT Age: 63 years Sex: MALE : 1960 Associated Diagnoses: None Author: Richmond Spencer MD Preoperative Information Anesthesia history: Patient history: No difficult intubation, No malignant hyperthermia. Family history: No malignant hyperthermia. Review of Systems Respiratory: Apnea, rarely uses CPAP, No shortness of breath. Cardiovascular: No known LA, No chest pain. Gastrointestinal: No heartburn. Musculoskeletal: [...] All Problems Apnea, sleep / SNOMED CT 179341405 / Confirmed Histories Family History: Acoustic neuroma Grandparent High blood pressure Father Heart attack Father Procedure history: Arthroscopy (46647199). Comments: 10/12/2023 13:07 Elizabeth aMrin RN right knee Bilateral cataracts (702199533). Cervical disc disease (3385851738). Comments: 10/12/2023 13:08 Elizabeth Marin RN disc repair in neck History of tonsillectomy (6255607451). Colonoscopy (362432523). Bilateral inguinal hernia (681263616). Appendectomy (117142879). Arthroscopy of shoulder (316378121). Comments: 10/12/2023 13:09 EST - Elizabeth Brandt RN left x 3 Social History Electronic Cigarette/Vaping Assessment Electronic Cigarette Use: Never. Alcohol Assessment Use: Past. Tobacco Assessment Former tobacco user Tobacco Use:. Comment: quit 35 year ago Substance Abuse Assessment Substance use: Never. . Physical Examination VS/Measurements Vital Signs (last 24 hrs) Last Charted Heart Rate Monitored 82 bpm (NOV 08:) Resp Rate 16 br/min (NOV 08:) SBP H 150 mmHg (NOV 08:) DBP 87 mmHg (NOV 08) General: Alert and oriented, No acute distress. Airway: Mallampati classification: III (soft palate, base of uvula visible). Mouth: Teeth ( Within normal limits ), small mouth opening and large neck tissue with short thyromental distance. Respiratory: Respirations are non-labored. Cardiovascular: Normal rate. Review / Management Results review: Lab results 11/08/2023 9:56 EST Glucose, POC 163 mg/dL ND 11/08/2023 9:13 EST Glucose, POC 198 mg/dL ND 11/08/2023 8:30 EST Glucose, POC 213 mg/dL ND . Laboratory Results ECG interpretation: SR with 1 deg AVB. Plan [employer]hesiologists#(ASA) physical status classification: Class III. Anesthetic Preoperative Plan Anesthesia: General. , Regional fascia iliaca block. Anesthetic plan, risks, benefits, and alternatives discussed with the patient and/or family. Patient verbalized understanding. Informed consent was given. Consent was signed by the patient. [Electronically Signed on: 11/08/2023 11:19 EST] Richmond Spencer MD [Verified on: 11/08/2023 11:19 EST] [facility]-08-2023 MAGR Intraoperative RecordMAGR Intra-Op Record Summary Primary Physician: JACLYN SNELL DO Finalized Date/Time: 11/08/23 13:46:12 Pt. Name: ROBBIN BARTLETT /Sex: 1960 MALE Med Rec #: [id number] Physician: JACLYN SNELL DO Financial #: [id number] Pt. Type: D Room/Bed: [facility] Admit/Disch: 11/08/23 08:03:44 - Institution: Case Times [...] Role Performed Surgeon - Primary Anesthesiologist of Physician Ophthalmologist Record Time In 11/08/23 10:27:00 11/08/23 10:27:00 11/08/23 10:27:00 Time Out 11/08/23 13:21:00 11/08/23 11:10:00 11/08/23 13:36:00 Procedure Arthroplasty Total Arthroplasty Total Arthroplasty Total Hip(Right) Hip(Right) Hip(Right) Last Modified By: Delores Ingram RN, Debra RN Myers, Debra RN 11/08/23 13:45:46 11/08/23 13:45:46 11/08/23 13:45:46 Entry 4 Entry 5 Entry 6 Case Attendee Kathleen Rodriguez RN, Regina CSFA DIE DEVELOPER Vera Thrasher CST Role Performed Field Installer Field Installer Scrub Personnel Time In 11/08/23 10:27:00 11/08/23 [...] laparoscope or robotic assistance Last Modified By: Deloers Ingram RN 11/08/23 13:46:01 Post-Care Text: O.730 [...] Ingram RN, Kathleen Rodriguez RN, Elenita Rodriguez DIE DEVELOPER, Vera Thrasher CST, Pérez Maguire MD Last Modified By: Delores Ingram RN 11/08/23 11:19:45 Patient Positioning MAGR Pre-Care Text: A.280 Identifies baseline musculoskeletal status Im.40 Positions the patient Im. (more content not included)...[facility] Intraoperative Record MAGR Intra-Op Record Summary Primary Physician: Finalized Date/Time: 11/08/23 10:50:00 Pt. Name: TRIROBBIN/Sex: 1960 MALE Med Rec #: [id number] Physician: JACLYN SNELL DO Financial #: [id number] Pt. Type: D Room/Bed: / Admit/Disch: 11/08/23 [...] Slauterbeck, Linda RN Role Performed Anesthesiologist of Physician Ophthalmologist Physician Ophthalmologist Record Time In 11/08/23 10:10:00 11/08/23 10:10:00 [...] Performs skin preparation Im.270.1 Implements protective measures toprevent skin and tissue injury due to chemical sources Entry 1 Skin Prep Syntegrity Prep Agents (Im.270) Chlorhexidine Gluconate Prep By Oumar (more content not included)...[facility] PACU Recordon [id number] PACU Record MAGR PACU Record Summary Primary Physician: JACLYN SNELL DO Finalized Date/Time: 11/08/23 15:15:10 Pt. Name: ROBBIN BARTLETT/Sex: 1960 MALE Med Rec #: [id number] Physician: JACLYN SNELL DO Financial #: [id number] Pt. Type: O Room/Bed: 221/1 Admit/Disch: 11/08/23 08:03:44 - Institution: PACU Case Times MAGR Entry 1 In PACU I 11/08/23 13:38:00 Discharge from PACU 11/08/23 14:49:00 I Last Modified By: Joaquina Raymond RN 11/08/23 15:15:09 Finalized By: Joaquina Raymond RN Document Signatures Signed By: Joaquina Raymond RN 11/08/23 15:15[facility] Pre[facility] [id number] Preoperative RecordMA Pre-Op Record Summary Primary Physician: JACLYN SNELL DO Finalized Date/Time: 11/08/23 15:14:54 Pt. Name: ROBBIN BARTLETT ALINE Jain./Sex: 1960 MALE Med Rec #: [id number] Physician: JACLYN SNELL DO Financial #: [id number] Pt. Type: O Room/Bed: [facility] Admit/Disch: 11/08/23 08:03:44 - Institution: Pre-Op Case [...] ready for surgery. The patient remains free froms/s of injury. Patient/family express understanding of plan of care and participate in decisions affectinghis or her perioperrative plan of care. Allergies documented appropriately. Patient identifiers and consent correct. General Comments: Pt arrives to [facility] ambulatory. Denies CP, cough, cold, COVID like sx. Pt is diabetic and has BELLA. Nohx of pacer/defib. Pt verbalizes understanding of post op anesthesia orders including no driving for 24h. Finalized By: Joaquina Raymond RN Document Signatures Signed By: Joaquina Raymond RN 11/08/23 15:14[facility] Preoperative Record MAGR Pre-Op Record Summary Primary Physician: Chaim Olivarez MD Finalized Date/Time: 11/08/23 10:36:16 Pt. Name: ROBBIN BARTLETT /Sex: 1960 MALE Med Rec #: [id number] Physician: JACLYN SNELL DO Financial #: [id number] Pt. Type: D Room/Bed: / Admit/Disch: 11/08/23 [...] ready for surgery. The patient remains free froms/s of injury. Patient/family express understanding of plan of care and participate in decisions affectinghis or her perioperrative plan of care. Allergies documented appropriately. Patient identifiers and consent correct. Finalized By: Kathleen Buckner RN Document Signatures Signed By: Kathleen Buckner RN 11/08/23 10:36[facility] CantonNutrition Noteon 26-83-1375Wtepjoyjb NotePt admitted for scheduled Rt hip surgery; currently [...] restrictions. Overall Pt appears at low nutrition risk.Normal [facility] CenterNutrition NoteChart reviewed; 63 yo male diagnosed with R PATTI; currently NPO post-op; no recent weight changes noted; no difficulties with chew/swallow identified on admit; besides being 63 yo and post-op patient a ppears at low nutrition risk; recommend advance diet as ary to 2200 kcals DM with glucerna 1.2 po BID to max intake; will monitor for diet advance, assist with changes prn. [facility] Glucose Levelon 11-08-2023 Glucose [Mass/Vol]276 mg/sGBgxq17-999Gsschrpe05 Pearson StreetComment on above:Performed By: #### [id number] #### [facility] (DEFAULT) [address] [place] [address] 09970Aysfeoz [Mass/Vol]306 mg/pAYyux34-354Qifrxatl[address] Comment on above:Performed By: #### [id number] #### [facility] (DEFAULT) [address] [place] [address] 52123Dygiuqb [Mass/Vol]290 mg/qINrfj60-502Bvzxkkap[address] Comment on above:Performed By: #### [id number] #### [facility] (DEFAULT) [address] [place] [address] 04970Emghqzj [Mass/Vol]301 mg/uZGenu25-784Jelewzfm[address] Comment on above:Performed By: #### [id number] #### [facility] (DEFAULT) [address] [place] [address] 70208Tftutpg [Mass/Vol]260 mg/jDFjkz66-243Afmctkkm[address] Comment on above:Performed By: #### [id number] #### [facility] (DEFAULT) [address] [place] [address] 92891Xssdgge [Mass/Vol]163 mg/cMMjad37-759Xtpitokf[address] Comment on above:Performed By: #### [id number] #### [facility] (DEFAULT) [address] [place] [address] 22009Tjzctbi [Mass/Vol]198 mg/sAQiyt06-110Amtmufjr[address] Comment on above:Performed By: #### [id number] #### [facility] (DEFAULT) [address] [place] [address] 62886Uzjfsyz [Mass/Vol]213 mg/nYImwb26-822Qcsjyhge[address] Comment on above:Performed By: #### [id number] ####[facility] (DEFAULT)[address] [place], [place] [address]LU Hip 1 View Rt w/ Pelvison 42-48-8126SC Hip 1 View Rt w/ PelvisCLINICAL HISTORY: Right hip replacement TECHNIQUE: 2 views right hip COMPARISON: 10/12/2023. RESULT: Interval right total hip arthroplasty. Soft tissue gas and edema about the hip from the recent procedure. Visualized bony pelvis grossly intact and unchanged. Degenerative changes left hip. IMPRESSION: Right hip arthroplasty. Final Signed (Electronic Signature): Jerald Meyers MD 11/09/23 12:23 p Technologist: MARIA ISABELAdams County HospitalProgress Note - Nurseon 11-07-2023 Progress Note - Nursespoke to pt on phone, instructed to be NPO after midnight, arrival time, suggestions of belongings to bring, pt verbalizes understanding [Electronically Signed on: 11/07/2023 10:35 EST] Kathleen Buckner RN [Verified on: 11/07/2023 10:35 EST] Kathleen Buckner RNSelect Medical Specialty Hospital - CantonCoding Summaryon 10-77-8985Ndvlvu SummaryHTMLBase 64 JhoboeouAZy9rLz+PGhlYWQ+IQ7BVQTcK44skRPnuA6fK7DXMGtWIdxhSLCXZNaFQvYdhqQeTL6ffBBz ZXJu [file] YXB (more content not included)...[facility] CantonProgress Note - Nurseon 97-02-1353Ctuoocyn Note - NursePAT reviewed by Dr. Zepeda. Pt to hold Trulicity greater than 7 days prior to surgery. Verbalized instructions to pt via phone, pt's last routine dose of Trulicity to be on 10/29/23. Pt states understanding. [Electronically Signed on: 10/16/2023 12:38 EST] Ray HENRYJay L [Verified on: 10/16/2023 12:38 EST] Ray HENRYJosecan LNormalMercy Health St[facility] HospitalProvider Orderson 41-51-8927Krivmmpp [id number]#1.00OTGTIFFSelect Medical Specialty Hospital - Canton .Auto Diff 1on 70-94-1499Lbgd Pine %7 %Normal1-12[facility] HospitalComment on above:Performed By: #### [id number] #### [facility] (DEFAULT) [address] [place] [address] 17928Rjwu Abs#0.0 m45Xsepmx6.0-0.2Magrkettering health main campus HospitalComment on above:Performed By: #### [id number] #### [facility] (DEFAULT) [address] [place] [address] 06698Usovskhdf/100 WBC (Bld)0.3 %Normal0.2-2.0[facility] Comment on above:Performed By: #### [id number] #### [facility] (DEFAULT) [address] [place] [address] 17361Dfi Abs#0.1 k48Lchcbh7.0-0.4[facility] HospitalComment on above:Performed By: #### [id number] #### [facility] (DEFAULT) [address] [place] [address] 35226Rkyzxrwxumx/100 WBC (Bld)1.4 %Normal0.9-4.0Magrkettering health main campus HospitalComment on above:Performed By: #### [id number] #### [facility] (DEFAULT) [address] [place] [address] 83603Kveap Abs#1.1 i00Mgy0.3-2.9[facility] HospitalComment on above:Performed By: #### [id number] #### [facility] (DEFAULT) [address] [place] [address] 51010Vqemncedtzs/100 WBC (Bld)16 %Tnlqwf57-81Wveekpgj Hospital Comment on above:Performed By: #### [id number] #### [facility] (DEFAULT) [address] [place] [address] 98184Ucbk Abs#0.5 m17Ltwram8.0-0.8[facility] HospitalComment on above:Performed By: #### [id number] #### [facility] (DEFAULT) [address] [place] [address] 89499Evoo Abs#5.0 t64Elvshb7.5-9.2M[facility] HospitalComment on above:Performed By: #### [id number] #### [facility] (DEFAULT) [address] [place] [address] 03330Cvfuonmczyg/100 WBC (Bld)75 %Xjaljq22-16Sltvekcq Hospital Comment on above:Performed By: #### [id number] #### [facility] (DEFAULT) [address] [place] [address] 09091MST Standardon 00-32-9399iMXF Non AA44 mL/min/1.73m2 Invalid Interpretation [facility] HospitalComment on above:Performed By: #### [id number] #### [facility] (DEFAULT) [address] [place] [address] 12299nLUR AA53 mL/min/1.61u1Tpfaebz Interpretation [facility] HospitalComment on above:Performed By: #### [id number] #### [facility] (DEFAULT) [address] [place] [address] 19727Ntewk gap [Moles/Vol]12.9 mmol/LNormal5.0-19.0[facility] HospitalComment on above:Performed By: #### [id number] #### [facility] (DEFAULT) [address] [place] [address] 85738Vntbvza [Mass/Vol]8.8 mg/dLLow8.9-10.3MTriHealth [facility] Comment on above:Performed By: #### [id number] #### [facility] (DEFAULT) [address] [place] [address] 04257Jsuttlgn [Moles/Vol]104 mmol/ZLmyjqr930-633Zjgbcvwr HospitalComment on above:Performed By: #### [id number] #### [facility] (DEFAULT) [address] [place] [address] 22134LP6 [Moles/Vol]24 mmol/JAhneav92-26Wuecivfu Hospital Comment on above:Performed By: #### [id number] #### [facility] (DEFAULT) [address] [place] [address] 46486Fjrriudtkg [Mass/Vol]1.59 mg/dLHigh0.90-1.30[facility] HospitalComment on above:Performed By: #### [id number] #### [facility] (DEFAULT) [address] [place] [address] 57089Cipvchz [Mass/Vol]224.0 mg/kSSuog54.0-118.0[facility] HospitalComment on above:Performed By: #### [id number] #### [facility] (DEFAULT) [address] [place] [address] 46736Qjorerypzj981 mOsm/LInvalid Interpretation CodeUniversity Hospitals Portage Medical CenterComment on above:Performed By: #### [id number] #### [facility] (DEFAULT) [address] [place] [address] 68303Oxzuyyoyr [Moles/Vol]4.9 mmol/LNormal3.6-5.1M[facility] hospital HospitalComment on above:Performed By: #### [id number] #### [facility] (DEFAULT) [address] [place] [address] 78459Rrwrct [Moles/Vol]136.0 mmol/WBdhmpt364.0-144.0[facility] HospitalComment on above:Performed By: #### [id number] #### [facility] (DEFAULT) [address] [place] [address] 96970Baxk nitrogen [Mass/Vol]26 mg/dLNormal8-26[facility] Medical CenterComment on above:Performed By: #### [id number] #### [facility] (DEFAULT) [address] [place] [address] 61719Yyrf nitrogen/Creatinine [Mass ratio]16.3 mg/mgHigh 4.6-16.2MTriHealth McCullough-Hyde Memorial HospitalComment on above:Performed By: #### [id number] #### [facility] (DEFAULT) [address] [place] [address] 78915QIQ w/ Auto Diffon 03-21-3226Dsbnrzwvymb distribution width (RBC) [Ratio]13.1 %Dffjzn46.5-15.0[facility] Medical CenterComment on above: Performed By: #### [id number] #### [facility] (DEFAULT) [address] [place] [address] 81551Kcqogyhgtg (Bld) [Volume fraction]35.6 %Odidhm88.8-51.9 [facility] Medical CenterComment on above:Performed By: #### [id number] #### [facility] (DEFAULT) [address] [place] [address] 72648Mokvhziify (Bld) [Mass/Vol]12.3 g/lTIoderp22.8-17.7 [facility] Medical CenterComment on above:Performed By: #### [id number] #### [facility] (DEFAULT) [address] [place] [address] 92730Ekl Diff?AutoInvalid Interpretation CodeUniversity Hospitals Portage Medical Center Comment on above:Performed By: #### [id number] #### [facility] (DEFAULT) [address] [place] [address] 81074IZV (RBC) [Entitic mass]34 oqKibnsp62-29Qlxasdvm Hospital Comment on above:Performed By: #### [id number] #### [facility] (DEFAULT) [address] [place] [address] 49368GERT (RBC) [Mass/Vol]34 g/cUScybyp70-41Tfcprqrb Hospital Comment on above:Performed By: #### [id number] #### [facility] (DEFAULT) [address] [place] [address] 46623NKG (RBC) [Entitic vol]98 gGLsqcfa70-023Hksawzsu Hospital Comment on above:Performed By: #### [id number] #### [facility] (DEFAULT) [address] [place] [address] 26341Clqcfdyu152 d10Dtkqzb789-231Pklxfbnq HospitalComment on above:Performed By: #### [id number] #### [facility] (DEFAULT) [address] [place] [address] 71133Mrjedgbx mean volume (Bld) [Entitic vol]8.1 fLNormal 6.3-10.2[facility] HospitalComment on above:Performed By: #### [id number] #### [facility] (DEFAULT) [address] [place] [address] 62709UQA6.63 u08Zbx8.70-5.30[facility] HospitalComment on above: Performed By: #### [id number] #### [facility] (DEFAULT) [address] [place] [address] 96080UZY3.7 h88Trldnc0.5-10.5[facility] HospitalComment on above: Performed By: #### [id number] #### [facility] (DEFAULT) [address] [place] [address] 49008EvoV2y Standardon 10-12-2023.Hb12.6Invalid Interpretation [facility] HospitalComment on above:Performed By: #### [id number] ####[facility] (DEFAULT)[address] [place] [address] 75001.Hgb A1c0.64 g/dL Invalid Interpretation [facility] HospitalComment on above:Performed By: #### [id number] ####[facility] (DEFAULT)[address] [place] [address] 67298Apictfh [Mass/Vol]148 mg/dLInvalid Interpretation [facility] Comment on above:Performed By: #### [id number] ####[facility] (DEFAULT)[address] [place] [address] 03444HxB0g (Bld) [Mass fraction]6.8 % High4.6-6.2M[facility] HospitalComment on above:Performed By: #### [id number] ####[facility] (DEFAULT)[address] [place] [address] 74746GF Micro1 on 54-40-9327IE BacteriaRareNormalMercy Health St[facility] HospitalComment on above:Order Comment: Urinalysis Microscopic order added on by Discern Expert Rules system. Performed By: #### [id number], [id number] #### [facility] (DEFAULT) [address] [place], [place] [address]UA Hyal Cast5-10NoElyria Memorial Hospital HospitalComment on above: Order Comment: Urinalysis Microscopic order added on by Banno Expert Rules system.Performed By: #### [id number], [id number] #### [facility] (DEFAULT) [address] [place] [address] 68391JK [address]ousTrace[address] Health [address] [facility] HospitalComment on above: Order Comment: Urinalysis Microscopic order added on by Banno Expert Rules system.Performed By: #### [id number], [id number] #### [facility] (DEFAULT) [address] [place] [address] 24464MT RBC0-2NormalMer[address] [facility] HospitalComment on above:Order Comment: Urinalysis Microscopic order added on by Banno Expert Rules system. Performed By: #### [id number], [id number] #### [facility] (DEFAULT) [address] [place] [address] 93263ZU Squam EpiFewNoElyria Memorial Hospital HospitalComment on above: Order Comment: Urinalysis Microscopic order added on by Banno Expert Rules system.Performed By: #### [id number], [id number] #### [facility] (DEFAULT) [address] [place] [address] 53828LW WBC0-2NormalMer[address] [facility] HospitalComment on above:Order Comment: Urinalysis Microscopic order added on by Banno Expert Rules system. Performed By: #### [id number], [id number] #### [facility] (DEFAULT) [address] [place] [address] 73850VG w Culture if Ind Standardon 33-16-3872Trmitqacdl UA NormalMagruder HospitalComment on above:Performed By: #### [id number], [id number] #### [facility] (DEFAULT) [address] [place] [address] 88606Zlgxb (U)YellowNormalMercy Health St. [facility] HospitalComment on above: Performed By: #### [id number], [id number] #### [facility] (DEFAULT) [address] [place] [address] 77514Xvdewaf?Not IndicatedInvalid Interpretation CodeMercy Health St. [facility] HospitalComment on above:Result Comment: Result created by rule GL_MAGR_ADD_UA_CULT Result created by rule GL_MAGR_ADD_UA_CULT Result created by rule GL_MAGR_ADD_UA_CULT1Performed By: #### [id number], [id number] #### [facility] (DEFAULT) [address] [place] [address] 74659Apjshjp (U) [Mass/Vol]NegativeNormUniversity Hospitals [facility] Hospital Comment on above:Performed By: #### [id number], [id number] #### [facility] (DEFAULT) [address] [place] [address] 77376Tytjnaw Ql (U)TRACENormalMercy Health St. [facility] HospitalComment on above:Performed By: #### [id number], [id number] #### [facility] (DEFAULT) [address] [place] [address] 45494Cyrkr?IndicatedInvalid Interpretation CodeMercy Health St. [facility] HospitalComment on above:Result Comment: Result created by rule GL_MAGR_ADD_UA_MICROPerformed By: #### [id number], [id number] #### [facility] (DEFAULT) [address] [place] [address] 35797MW BilirubinSMALLAbnormalMercy Health St. [facility] HospitalComment on above:Performed By: #### [id number], [id number] #### [facility] (DEFAULT) [address] [place] [address] 79473GD BloodNegativeNormalNEGATIVEMercy Health St. [facility] HospitalComment on above:Performed By: #### [id number], [id number] #### [facility] (DEFAULT) [address] [place] [address] 21067XS ClarityCLEARNormalCLEARMercy Health St. [facility] HospitalComment on above:Performed By: #### [id number], [id number] #### [facility] (DEFAULT) [address] [place] [address] 30939IF Leuk EstNegativeNormalNEGATIVEMercy Health St. [facility] HospitalComment on above:Performed By: #### [id number], [id number] #### [facility] (DEFAULT) [address] [place] [address] 06033HO NitriteNegativeNormalNEGATIVEMercy Health St. [facility] HospitalComment on above:Performed By: #### [id number], [id number] #### [facility] (DEFAULT) [address] [place] [address] 33213ZL pH5.6Qdllae8-9Wfavpdcc HospitalComment on above: Performed By: #### [id number], [id number] #### [facility] (DEFAULT) [address] [place] [address] [id number] Kisrfgj516YzowjnbjTCADKIBRDvhfpfot HospitalComment on above:Performed By: #### [id number], [id number] #### [facility] (DEFAULT) [address] [place] [address] [id number] Spec Grav>=1.650Jowfjw2.001-1.035[facility] Comment on above:Performed By: #### [id number], [id number] #### [facility] (DEFAULT) [address] [place] [address] [id number] Urobilinogen1.0 mg/dLNormal0.2-1.0[facility] Comment on above:Performed By: #### [id number], [id number] #### [facility] (DEFAULT) [address] [place] [address] [id number] SourceClean CatchNormalMercy Health St. [facility] HospitalComment on above:Performed By: #### [id number], [id number] #### [facility] (DEFAULT) [address] [place] [address] [id number] AUTO DIFFon [id number] #0.0 103/ulNormal0.0-0.1The [facility] HospitalComment on above:Performed By: #### A1C #### [facility] [address] [address] [address] Herminio OchoaBasophils/100 WBC (Bld)0.3 %Normal0.2-2.0[facility] Comment on above:Performed By: #### A1C #### [facility] [address] [address] [address] Herminio Ortega #0.1 103/ulNormal0.0-0.7The [facility] HospitalComment on above: Performed By: #### A1C #### [facility] [address] [place] [address] Dr. Herminio Taylorosinophils/100 WBC (Bld)1.2 %Normal0.9-7.0[facility] Comment on above:Performed By: #### A1C #### [facility] [address] [place] [address] Dr. Herminio Taylorrythrocyte distribution width (RBC) [Ratio]13.2 %Jywyfn67.0-15.0 The [facility] HospitalComment on above:Performed By: #### A1C #### [facility] [address] [place] [address] Dr. Herminio OchoaHematocrit (Bld) [Volume fraction]35.9 %Critically low42.0-54.0 The [facility] HospitalComment on above:Performed By: #### A1C #### [facility] [address] [place] [address] Dr. Herminio OchoaHemoglobin (Bld) [Mass/Vol]12.4 g/dLCritically low14.0-18.0The [facility] HospitalComment on above:Performed By: #### A1C #### [facility] [address] [place] [address] Dr. Herminio Pace #0.02 10e3/ulNormal0.00-0.03The [facility] HospitalComment on above:Performed By: #### A1C #### [facility] [address] [address] [address] Herminio Pace %0.3 %Normal0.0-0.5The [facility] on above: Performed By: #### A1C #### [facility] [address] [address] [address] Herminio Cifuentes #1.5 103/ulNormal1.2-3.8The [facility] HospitalComment on above:Performed By: #### A1C #### [facility] [address] [address] [address] Herminio Gonzalezhocytes/100 WBC (Bld)25.5 %Yxgedd46.5-60.0The [facility] on above:Performed By: #### A1C #### [facility] [address] [place] [address] Dr. Herminio BrockUAL DIFF REQNONormalThe [facility] HospitalComment on above: Performed By: #### A1C #### [facility] [address] [place] [address] Dr. Herminio Raza (RBC) [Entitic mass]33.6 pxLlaekz22.9-34.0The [facility] on above:Performed By: #### A1C #### [facility] [address] [place] [address] Dr. Herminio Raza (RBC) [Mass/Vol]34.5 g/wKZjrthv40.9-35.2The [facility] on above:Performed By: #### A1C #### [facility] [address] [place] [address] Dr. Herminio Raza (RBC) [Entitic vol]97.3 fLCritically high80.0-94.0The [facility] on above:Performed By: #### A1C #### [facility] [address] [place] [address] Dr. Herminio Werner #0.5 103/ulNormal0.3-0.8The [facility] HospitalCommclaren [facility] [place] on above:Performed By: #### A1C #### [facility] [address] [address] [address] Herminio Garrisonocytes/100 WBC (Bld)8.5 %Normal1.7-12.0[facility] Comment on above:Performed By: #### A1C #### [facility] [address] [address] [address] Herminio SanUT #3.8 103/ulNormal1.4-6.5The [facility] HospitalComment on above:Performed By: #### A1C #### [facility] [address] [place] [address] Dr. Herminio Sanutrophils/100 WBC (Bld)64.2 %Xeoezw22.0-75.0The [facility] HospitalComment on above:Performed By: #### A1C #### [facility] [address] [place] [address] Dr. Herminio OchoaPlatelet mean volume (Bld) [Entitic vol]10.1 fLNormal9.5-13.5The [facility] HospitalComment on above:Performed By: #### A1C #### [facility] [address] [place] [address] Dr. Herminio OchoaPLT214 103/iwXayvly325-772Gny [facility] HospitalComment on above: Performed By: #### A1C #### [facility] [address] [place] [address] Dr. Herminio OchoaRBC3.69 106/ulCritically low4.70-6.10The [facility] HospitalComment on above:Performed By: #### A1C #### [facility] [address] [place] [address] Dr. Herminio OchoaWBC6.0 103/ulNormal4.0-11.0The [facility] HospitalComment on above: Performed By: #### A1C #### [facility] [address] [place] [address] Dr. Herminio OchoaGLYCOHEMOGLOBIN A1Con [id number] RECOMMENDATIONSEE BELOWNormal The [facility] HospitalComment on above:Result Comment: ADA RECOMMENDED LIMIT 4.0 - 6.0 ADA THERAPEUTIC TARGET < 7.0 ACTION SUGGESTED > 7.0Performed By: #### A1C #### [facility] [address] [place] [address] Dr. Herminio OchoaGlucose [Mass/Vol]140 mg/dLNormalThe [facility] HospitalCommclaren [facility] [place] on above:Performed By: #### A1C #### [facility] [address] [place] [address] Dr. Herminio OchoaHbA1c (Bld) [Mass fraction]6.5 %Critically high4.5-6.2The [facility] on above:Performed By: #### A1C #### [facility] [address] [place] [address] Dr. Herminio Olvera, [place] URon 56-14-8061xNXO74.8 mg/LNormal<=30.0The [facility] on above:Performed By: #### MALBR #### [facility] [address] [place] [address] Dr. Herminio OchoaPROF 14(COMP METB)on 28-95-6111Ynuosys [Mass/Vol]4.0 g/dLNormal 3.4-5.0The [facility] on above:Performed By: #### VITB12, PSASC #### [facility] [address] [place] [address] Dr. Herminio OchoaAlbumin/Globulin [Mass ratio]1.3 {ratio}NormalThe [facility] on above:Performed By: #### VITB12, PSASC #### [facility] [address] [place] [address] Dr. Herminio ParkP [Catalytic activity/Vol]110 U/QFwuxlv35-376Xez [facility] on above:Performed By: #### VITB12, PSASC #### [facility] [address] [place] [address] Dr. Herminio ParkT [Catalytic activity/Vol]24 U/XGgbrvn19-39Ops [facility] on above:Performed By: #### VITB12, PSASC #### [facility] [address] [address] [address] Herminio OchoaAnion gap [Moles/Vol]13.9 mmol/LNormalWooster Community Hospital Comment on above:Performed By: #### VITB12, PSASC #### [facility] [address] [address] [address] Herminio OchoaAST [Catalytic activity/Vol]17 U/FDozsxg07-04Ldk [facility] HospitalComment on above:Performed By: #### VITB12, PSASC #### [facility] [address] [address] [address] Herminio OchoaBilirubin [Mass/Vol]0.4 mg/dLNormal0.2-1.0[facility] Comment on above:Performed By: #### VITB12, PSASC #### [facility] [address] [place] [address] Dr. Herminio OchoaCalcium [Mass/Vol]8.8 mg/dLNormal8.5-10.1[facility] Comment on above:Performed By: #### VITB12, PSASC #### [facility] [address] [address] [address] Herminio OchoaChloride [Moles/Vol]103 mmol/UAclrpz61-488Ogd [facility] Comment on above:Performed By: #### VITB12, PSASC #### [facility] [address] [address] [address] Herminio OchoaCO2 [Moles/Vol]29.5 mmol/DEipfpq12.0-32.0[facility] Comment on above:Performed By: #### VITB12, PSASC #### [facility] [address] [address] [address] Herminio OchoaCreatinine [Mass/Vol]1.30 mg/dLNormal0.70-1.30The [facility] HospitalComment on above:Performed By: #### VITB12, PSASC #### [facility] [address] [address] [address] Durham ChangEGFR-AF STATELESS>60Normal>=60The [facility] HospitalComment on above:Performed By: #### VITB12, PSASC #### [facility] [address] [place] [address] Dr. Herminio TaylorGFR-NON AF TZACVZKT30 mL/min/1.05h8Vrlggzvldv low>=60The [facility] HospitalComment on above:Performed By: #### VITB12, PSASC #### [facility] [address] [place] [address] Dr. Herminio OchoaGlobulin (S) [Mass/Vol]3.2 g/dLNormalThe [facility] HospitalComment on above:Performed By: #### VITB12, PSASC #### [facility] [address] [place] [address] Dr. Herminio OchoaGlucose [Mass/Vol]98 mg/rIKvwxrb00-028BwjWooster Community Hospital Comment on above:Performed By: #### VITB12, PSASC #### [facility] [address] [place] [address] Dr. Herminio OchoaPotassium [Moles/Vol]4.4 mmol/LNormal3.5-5.1[facility] Comment on above:Performed By: #### VITB12, PSASC #### [facility] [address] [place] [address] Dr. Herminio OchoaProtein [Mass/Vol]7.2 g/dLNormal6.4-8.2[facility] Comment on above:Performed By: #### VITB12, PSASC #### [facility] [address] [place] [address] Dr. Herminio OchoaSodium [Moles/Vol]142 mmol/HXobdqh102-425CtmWooster Community Hospital Comment on above:Performed By: #### VITB12, PSASC #### [facility] [address] [place] [address] Dr. Herminio OchoaUrea nitrogen [Mass/Vol]25.0 mg/dLCritically high7.0-18.0[facility] HospitalComment on above:Performed By: #### VITB12, PSASC #### [facility] [address] [address] [address] Herminio OchoaUrea nitrogen/Creatinine [Mass ratio]19.2 mg/mgNoCentervilleComment on above:Performed By: #### VITB12, PSASC #### [facility] [address] [address] [address] Herminio Zurita RANDOM W/MICROSCOPICon 59-39-5244FHHCKSAYHQTE SEENNormalNONE SEENWooster Community HospitalComment on above:Performed By: #### A1C #### [facility] [address] [address] [address] Herminio OchoaBilirubin Ql (U)NegativeNormalNEGATIVEParkview Health on above:Performed By: #### A1C #### [facility] [address] [address] [address] Herminio OchoaCASTNONE SEENNormalNONE SEENWooster Community HospitalCommclaren northern [place] on above:Performed By: #### A1C #### [facility] [address] [address] [address] Herminio Scanlonarity (U)SL CLOUDYAbnormalCLEARThSamaritan HospitalComment on above:Performed By: #### A1C #### [facility] [address] [address] [address] Herminoi Decker (U)LT. YELLOWNormalYHenry County HospitalComment on above:Performed By: #### A1C #### [facility] [address] [address] [address] Herminio OchoaCrystals LM Nom (Urine sed)NONE SEENNormalNONE SEENWooster Community HospitalComment on above:Performed By: #### A1C #### [facility] [address] [address] [address] Durham ChangEpithelial cells LM Ql (Urine sed)FEWAbnormalNONE SEEN /RAREThe [facility] HospitalComment on above:Performed By: #### A1C #### [facility] [address] [address] [address] Herminio OchoaGlucose Ql (U)NegativeNormalNEGATIVEWooster Community HospitalComment on above:Performed By: #### A1C #### [facility] [address] [address] [address] Herminio OchoaHemoglobin Ql (U)NegativeNormalNEGATIVETrumbull Regional Medical Center [facility] on above:Performed By: #### A1C #### [facility] [address] [address] [address] Herminio OchoaKetones Ql (U)NegativeNormalNEGATIVEWooster Community HospitalComment on above:Performed By: #### A1C #### [facility] [address] [address] [address] Herminio OchoaLEUKOCYTESNegativeNormalNEGATIVEWooster Community HospitalComment on above:Performed By: #### A1C #### [facility] [address] [address] [address] Herminio OchoaMUCOUSSMALLAbnormalNONE SEENWooster Community HospitalComment on above:Performed By: #### A1C #### [facility] [address] [address] [address] Herminio OchoaNitrite Ql (U)NegativeNormalNEGATIVEWooster Community HospitalComment on above:Performed By: #### A1C #### [facility] [address] [address] [address] Herminio OchoapH (U)6.0 [pH]Normal5-9The [facility] Hospitalment on above: Performed By: #### A1C #### [facility] [address] [address] [address] Herminio OchoaRBCNONE SEENAbnormal0-2The [facility] HospitalComment on above: Performed By: #### A1C #### [facility] [address] [address] [address] Herminio OchoaSPEC GRAVITY1.858Mcklse3.005-<=1.025The [facility] HospitalComment on above:Performed By: #### A1C #### [facility] [address] [address] [address] Herminio OchoaUA PROTEINTRACENormalNEGATIVE/ TRACEThe [facility] HospitalComment on above:Performed By: #### A1C #### [facility] [address] [place] [address] Dr. Herminio Keebilino Qn (U)1.0 {Ricky'U}/dLNormal0.2 - 1.0The [facility] HospitalComment on above:Performed By: #### A1C #### [facility] [address] [place] [address] Dr. Herminio OchoaWBCNONE SEENNormalNONE SEENThe [facility] HospitalComment on above: Performed By: #### A1C #### [facility] [address] [place] [address] Dr. Herminio OchoaVITAMIN B12on 03-78-6089Vxqnvatvw (Vitamin B12) [Mass/Vol]256.0 pg/fKTufmdx143.0-986.0The [facility] HospitalComment on above:Performed By: #### VITB12 #### [facility] [address] [place] [address] Dr. Herminio OchoaXR LSPINE 2_3 VIEWSon 77-50-8030AV LSPINE 2_3 VIEWSEXAMINATION: XR LSPINE 2_3 VIEWS HISTORY: Lumbar radiculopathy COMPARISON: No relevant comparison available. FINDINGS: BONES: Mild levocurvature centered at L3. Mild to moderate degenerative spondylosis and facet osteoarthropathy DISC SPACES: Normal. No significant disc height narrowing, subluxation, or endplate abnormality. PARASPINOUS: Negative. No paraspinous abnormality is seen. OTHER: Vascular calcifications IMPRESSION: Dbbf-qr-jxdrjhit degenerative changes Electronically authenticated by: JOCELYN ZALDIVAR Date: 2023-01-27 15:33NormalThe [facility] HospitalOCC BLD IMMUNO SCREENon 38-97-9104GINKKR BLOODNegativeNormal NEGATIVEThe [facility] HospitalComment on above:Performed By: #### A1C #### [facility] [address] [place] [address] Dr. Herminio OchoaPTH INTACTon 60-13-6771ARL, Obqiwr40 pg/cDEfuusx49-01Zch [facility] HospitalComment on above:Performed By: #### A1C #### [facility] [address] [place] [address] Dr. Herminio OchoaFERRITINon 74-73-1364Syxbkpwq [Mass/Vol]61.0 ng/mLNormal 26.0-388.0The [facility] HospitalComment on above:Performed By: #### FERR, IRON #### [facility] [address] [place] [address] Dr. Herminio OchoaHEMOGRAM AND PLATELon 18-57-9309Mqjcccvzof (Bld) [Volume fraction]32.0 %Critically low42.0-54.0The [facility] HospitalComment on above: Performed By: #### A1C #### [facility] [address] [place] [address] Dr. Herminio OchoaHemoglobin (Bld) [Mass/Vol]10.8 g/dLCritically low14.0-18.0The [facility] HospitalComment on above:Performed By: #### A1C #### [facility] [address] [place] [address] Dr. Herminio Raza (RBC) [Entitic mass]33.3 trYortgl22.9-34.0The [facility] HospitalComment on above:Performed By: #### A1C #### [facility] [address] [place] [address] Dr. Herminio Raza (RBC) [Mass/Vol]33.8 g/jEWorrmo75.9-35.2The [facility] HospitalComment on above:Performed By: #### A1C #### [facility] [address] [place] [address] Dr. Herminio Raza (RBC) [Entitic vol]98.8 fLCritically high80.0-94.0The [facility] HospitalComment on above:Performed By: #### A1C #### [facility] [address] [place] [address] Dr. Herminio OchoaPLT153 103/puBeslzc836-750Oas [facility] HospitalComment on above: Performed By: #### A1C #### [facility] [address] [place] [address] Dr. Herminio OchoaRBC3.24 106/ulCritically low4.70-6.10The [facility] HospitalComment on above:Performed By: #### A1C #### [facility] [address] [place] [address] Dr. Herminio OchoaWBC4.7 103/ulNormal4.0-11.0The [facility] HospitalComment on above: Performed By: #### A1C #### [facility] [address] [place] [address] Dr. Herminio Arenas 86-16-1060Ziab [Mass/Vol]94.0 ug/aCGjmnzm36.0-175.0The [facility] HospitalComment on above:Performed By: #### A1C #### [facility] [address] [place] [address] Dr. Herminio OchoaPHOSPHORUSbecky 64-06-8161Vifnwdljl [Mass/Vol]3.8 mg/dLNormal2.6-4.7 The [facility] HospitalComment on above:Performed By: #### A1C #### [facility] [address] [place] [address] Dr. Herminio OchaoPROF CHEM 8 (BAS METB)on 64-26-8740Tjinf gap [Moles/Vol]12.1 mmol/LNormalThe [facility] HospitalComment on above:Performed By: #### A1C #### [facility] [address] [place] [address] Dr. Herminio OchoaCalcium [Mass/Vol]8.7 mg/dLNormal8.5-10.1The [facility] Comment on above:Performed By: #### A1C #### [facility] [address] [place] [address] Dr. Herminio OchoaChloride [Moles/Vol]104 mmol/MArbhjr22-871Ozg [facility] Comment on above:Performed By: #### A1C #### [facility] [address] [place] [address] Dr. Herminio OchoaCO2 [Moles/Vol]27.7 mmol/ONwrmvw28.0-32.0The [facility] Comment on above:Performed By: #### A1C #### [facility] [address] [address] [address] Herminio OchoaCreatinine [Mass/Vol]1.48 mg/dLCritically high0.70-1.30The [facility] HospitalComment on above:Performed By: #### A1C #### [facility] [address] [address] [address] Durham ChangEGFR-AF AUWCMLKG12 mL/min/1.26s2Gcicfwseig low>=60The [facility] HospitalComment on above:Performed By: #### A1C #### [facility] [address] [address] [address] Herminio TaylorGFR-NON AF GYJFWIUG33 mL/min/1.72s7Sbvxyjnlmt low>=60The [facility] Hospitalment on above:Performed By: #### A1C #### [facility] [address] [address] [address] Herminio OchoaGlucose [Mass/Vol]142 mg/dLCritically brvp29-330Xvz [facility] HospitalComment on above:Performed By: #### A1C #### [facility] [address] [address] [address] Herminio OchoaPotassium [Moles/Vol]4.8 mmol/LNormal3.5-5.1[facility] Comment on above:Performed By: #### A1C #### [facility] [address] [address] [address] Herminio OchoaSodium [Moles/Vol]139 mmol/LNuzbvz769-492Jqq [facility] Comment on above:Performed By: #### A1C #### [facility] [address] [address] [address] Herminio OchoaUrea nitrogen [Mass/Vol]40.0 mg/dLCritically high7.0-18.0The [facility] Hospitalment on above:Performed By: #### A1C #### [facility] [address] [address] [address] Herminio OchoaUrea nitrogen/Creatinine [Mass ratio]27.0 mg/mgNormalThe [facility] HospitalComment on above:Performed By: #### A1C #### [facility] [address] [address] [address] Herminio OchoaMICROALBUMIN URINEon 66-00-6820Fewdzoq, Urine27.1 ug/mLNormalNot Estab.The [facility] HospitalComment on above:Performed By: #### VITB12, PSASC #### [facility] [address] [address] [address] Herminio OchoaCBC AUTO DIFFon 70-22-1777KZAL #0.0 103/ulNormal0.0-0.1The [facility] HospitalComment on above:Performed By: #### CBC #### [facility] [address] [place] [address] Dr. Herminio OchoaBasophils/100 WBC (Bld)0.3 %Normal0.2-2.0[facility] Comment on above:Performed By: #### CBC #### [facility] [address] [place] [address] Dr. Herminio Ortega #0.1 103/ulNormal0.0-0.7The [facility] HospitalComment on above: Performed By: #### CBC #### [facility] [address] [place] [address] Dr. Herminio Taylorosinophils/100 WBC (Bld)1.5 %Normal0.9-7.0The [facility] Comment on above:Performed By: #### CBC #### [facility] [address] [place] [address] Dr. Herminio Taylorrythrocyte distribution width (RBC) [Ratio]12.8 %Vxcbuv13.0-15.0 [facility] HospitalComment on above:Performed By: #### CBC #### [facility] [address] [place] [address] Dr. Herminio OchoaHematocrit (Bld) [Volume fraction]32.8 %Critically low42.0-54.0 The [facility] Hospitalment on above:Performed By: #### CBC #### [facility] [address] [place], [place] [id number] Dr. Herminio OchoaHemoglobin (Bld) [Mass/Vol]11.2 g/dLCritically low14.0-18.0The [facility] HospitalComment on above:Performed By: #### CBC #### [facility] [address] [place] [address] Dr. Herminio Pace #0.01 10e3/ulNormal0.00-0.03The [facility] HospitalComment on above:Performed By: #### CBC #### [facility] [address] [place] [address] Dr. Herminio Pace %0.1 %Normal0.0-0.5The [facility] HospitalComment on above: Performed By: #### CBC #### [facility] [address] [place] [address] Dr. Herminio Cifuentes #1.3 103/ulNormal1.2-3.8The [facility] HospitalComment on above:Performed By: #### CBC #### [facility] [address] [place] [address] Dr. Herminio Gonzalezhocytes/100 WBC (Bld)19.0 %Critically low20.5-60.0The [facility] HospitalCommclaren [facility] [place] on above:Performed By: #### CBC #### [facility] [address] [place] [address] Dr. Herminio BrockUAL DIFF REQNONormalThe [facility] HospitalComment on above: Performed By: #### CBC #### [facility] [address] [place] [address] Dr. Herminio Raza (RBC) [Entitic mass]33.5 enJikvly85.9-34.0The [facility] HospitalComment on above:Performed By: #### CBC #### [facility] [address] [place] [address] Dr. Herminio Raza (RBC) [Mass/Vol]34.1 g/sXMvcped58.9-35.2The [facility] HospitalComment on above:Performed By: #### CBC #### [facility] [address] [address] [address] Herminio RazaV (RBC) [Entitic vol]98.2 fLCritically high80.0-94.0The Wilson Memorial HospitalComment on above:Performed By: #### CBC #### [facility] [address] [place] [address] Dr. Herminio Werner #0.6 103/ulNormal0.3-0.8The [facility] HospitalComment on above:Performed By: #### CBC #### [facility] [address] [place] [address] Dr. Herminio Garrisonocytes/100 WBC (Bld)8.7 %Normal1.7-12.0[facility] Comment on above:Performed By: #### CBC #### [facility] [address] [place] [address] Dr. Herminio Ledesma #4.7 103/ulNormal1.4-6.5The [facility] HospitalComment on above:Performed By: #### CBC #### [facility] [address] [place] [address] Dr. Herminio Sanutrophils/100 WBC (Bld)70.4 %Ytirrp15.0-75.0The [facility] HospitalComment on above:Performed By: #### CBC #### [facility] [address] [place] [address] Dr. Herminio Moserlet mean volume (Bld) [Entitic vol]10.6 fLNormal9.5-13.5The [facility] HospitalComment on above:Performed By: #### CBC #### [facility] [address] [place] [address] Dr. Herminio OchoaPLT187 103/fqExojgh641-237Xfp [facility] HospitalComment on above: Performed By: #### CBC #### [facility] [address] [place] [address] Dr. Herminio OchoaRBC3.34 106/ulCritically low4.70-6.10The [facility] HospitalComment on above:Performed By: #### CBC #### [facility] [address] [address] [address] Herminio OchoaWBC6.7 103/ulNormal4.0-11.0The [facility] HospitalCommclaren northern [place] on above: Performed By: #### CBC #### [facility] [address] [address] [address] Herminio OchoaGLYCOHEMOGLOBIN A1Con 65-30-1775AXV RECOMMENDATIONSEE BELOWTrihealthComment on above:Result Comment: ADA RECOMMENDED LIMIT 4.0 - 6.0 ADA THERAPEUTIC TARGET < 7.0 ACTION SUGGESTED > 7.0Performed By: #### A1C #### [facility] [address] [address] [address] Herminio OchoaGlucose [Mass/Vol]151 mg/dLNoCentervilleComment on above:Performed By: #### A1C #### [facility] [address] [place] [address] Dr. Herminio OchoaHbA1c (Bld) [Mass fraction]6.9 %Critically high4.5-6.2The [facility] HospitalComment on above:Performed By: #### A1C #### [facility] [address] [address] [address] Herminio OchoaLIPID PROFILEon 78-08-0410TINE-HDL RATIO NORMSEE [facility] HospitalCommclaren [facility] [place] on above:Result Comment: 3.3 - 4.4 LOW RISK 4.4 - 7.1 AVERAGE RISK 7.1 - 11.0 MODERATE RISK >11.0 HIGH RISKPerformed By: #### LIPID, CMP #### [facility] [address] [place] [address] Dr. Herminio OchoaCholesterol [Mass/Vol]123 mg/dLNormal<=200[facility] Comment on above:Performed By: #### LIPID, CMP #### [facility] [address] [place] [address] Dr. Herminio OchoaCholesterol in HDL [Mass/Vol]50 mg/pJQlfxjc17-36Xec [facility] HospitalComment on above:Performed By: #### LIPID, CMP #### [facility] [address] [address] [address] Herminio OchoaCholesterol in LDL [Mass/Vol]59.0 mg/dLCleveland Clinic Mentor HospitalComment on above:Performed By: #### LIPID, CMP #### [facility] [address] [address] [address] Herminio Burrellesterpancho.total/Cholesterol in HDL [Mass ratio]2.5 {ratio} NormalThe [facility] Memorial HospitalComment on above:Performed By: #### LIPID, CMP #### [facility] [address] [address] [address] Herminio Cruz NORMAL> or = 60 mg/dl - LOW CARDIOVASCULAR RISK <40 mg/dl - HIGH CARDIOVASCULAR RISKCleveland Clinic Mentor HospitalCommclaren northern [place] on above:Performed By: #### LIPID, CMP #### [facility] [address] [place] [address] Dr. Herminio Rothman CALC NORMALSEE BELOWCleveland Clinic Mentor HospitalComment on above:Result Comment: <100 mg/dl OPTIMAL 100 - 129 mg/dl NEAR OR ABOVE OPTIMAL 130 - 159 mg/dl BORDERLINE HIGH 160 - 189 mg/dl HIGH >190 mg/dl VERY HIGH Performed By: #### LIPID, CMP #### [facility] [address] [place] [address] Dr. Herminio OchoaTriglyceride [Mass/Vol]70 mg/dLNormal<=150[facility] Comment on above:Performed By: #### LIPID, CMP #### [facility] [address] [place] [address] Dr. Herminio OchoaVLDL CALC14.0 mg/dLNoCentervilleCommclaren northern mich[place] on above: Performed By: #### LIPID, CMP #### [facility] [address] [place] [address] Dr. Herminio OchoaPROInder 14(COMP METB)on 35-46-0153Vmnzjxq [Mass/Vol]4.2 g/dLNormal 3.4-5.0The [facility] HospitalComment on above:Performed By: #### LIPID, CMP #### [facility] [address] [address] [address] Herminio OchoaAlbumin/Globulin [Mass ratio]1.3 {ratio}NormalThe [facility] Memorial HospitalComment on above:Performed By: #### LIPID, CMP #### [facility] [address] [address] [address] Herminio ParkP [Catalytic activity/Vol]90 U/MYwciwd42-767Yfk [facility] HospitalComment on above:Performed By: #### LIPID, CMP #### [facility] [address] [address] [address] Herminio ParkT [Catalytic activity/Vol]21 U/KJmovtw78-14Exm [facility] HospitalComment on above:Performed By: #### LIPID, CMP #### [facility] [address] [address] [address] Herminio Mendenhallon gap [Moles/Vol]16.1 mmol/LNormalThe [facility] Comment on above:Performed By: #### LIPID, CMP #### [facility] [address] [address] [address] Herminio OchoaAST [Catalytic activity/Vol]15 U/DOhgqaf33-27Wba [facility] HospitalComment on above:Performed By: #### LIPID, CMP #### [facility] [address] [address] [address] Herminio OchoaBilirubin [Mass/Vol]0.4 mg/dLNormal0.2-1.0The [facility] Comment on above:Performed By: #### LIPID, CMP #### [facility] [address] [place] [address] Dr. Herminio OchoaCalcium [Mass/Vol]9.0 mg/dLNormal8.5-10.1The [facility] Comment on above:Performed By: #### LIPID, CMP #### [facility] [address] [place] [address] Dr. Herminio OchoaChloride [Moles/Vol]102 mmol/RJbzfom93-598Yup [facility] Comment on above:Performed By: #### LIPID, CMP #### [facility] [address] [address] [address] Herminio OchoaCO2 [Moles/Vol]23.9 mmol/YWvdnhl64.0-32.0The [facility] Comment on above:Performed By: #### LIPID, CMP #### [facility] [address] [address] [address] Herminio OchoaCreatinine [Mass/Vol]2.22 mg/dLCritically high0.70-1.30The [facility] HospitalComment on above:Performed By: #### LIPID, CMP #### [facility] [address] [address] [address] Durham ChangEGFR-AF WGWOWNQO45 mL/min/1.52v8Nmpptywlad low>=60The [facility] HospitalComment on above:Performed By: #### LIPID, CMP #### [facility] [address] [place] [address] Dr. Herminio TaylorGFR-NON AF AKKIXLKY80 mL/min/1.06s7Mvsitgescr low>=60The [facility] HospitalComment on above:Performed By: #### LIPID, CMP #### [facility] [address] [address] [address] Herminio OchoaGlobulin (S) [Mass/Vol]3.2 g/dLNormalThe [facility] HospitalComment on above:Performed By: #### LIPID, CMP #### [facility] [address] [place] [address] Dr. Herminio OchoaGlucose [Mass/Vol]158 mg/dLCritically egip54-871Umz [facility] HospitalComment on above:Performed By: #### LIPID, CMP #### [facility] [address] [place] [address] Dr. Herminio OchoaPotassium [Moles/Vol]5.0 mmol/LNormal3.5-5.1The [facility] Comment on above:Performed By: #### LIPID, CMP #### [facility] [address] [place] [address] Dr. Herminio OchoaProtein [Mass/Vol]7.4 g/dLNormal6.4-8.2The [facility] Comment on above:Performed By: #### LIPID, CMP #### [facility] [address] [address] [address] Herminio Ornelasdium [Moles/Vol]137 mmol/SOiiuix643-440Uau [facility] Comment on above:Performed By: #### LIPID, CMP #### [facility] [address] [address] [address] Herminio Maria nitrogen [Mass/Vol]47.0 mg/dLCritically high7.0-18.0The [facility] HospitalComment on above:Performed By: #### LIPID, CMP #### [facility] [address] [address] [address] Herminio Maria nitrogen/Creatinine [Mass ratio]21.2 mg/mgNoCentervilleComment on above:Performed By: #### LIPID, CMP #### [facility] [address] [address] [address] Herminio Zurita RANDOM W/MICROSCOPICon 63-22-3379FPDPYHHJPWUF SEENNormalNONE SEENWooster Community HospitalComment on above:Performed By: #### UAMIC #### [facility] [address] [address] [address] Herminio Marie Ql (U)NegativeNormalNEGATIVEWooster Community Hospital Comment on above:Performed By: #### UAMIC #### [facility] [address] [address] [address] Herminio OchoaCASTLOYDAE SEENNormalNONE SEENWooster Community HospitalComment on above:Performed By: #### UAMIC #### [facility] [address] [address] [address] Herminio Scanlonarity (U)CLEARNormalCLEARThe [facility] HospitalComment on above: Performed By: #### UAMIC #### [facility] [address] [address] [address] Herminio Decker (U)LT. YELLOWNormalYELLOWWooster Community HospitalComment on above:Performed By: #### UAMIC #### [facility] [address] [address] [address] Herminio OchoaCrystals LM Nom (Urine sed)NONE SEENNormalNONE SEENWooster Community HospitalComment on above:Performed By: #### UAMIC #### [facility] [address] [place] [address] Dr. Durham ChangEpithelial cells LM Ql (Urine sed)FEWAbnormalNONE SEEN /RAREWooster Community HospitalComment on above:Performed By: #### UAMIC #### [facility] [address] [place] [address] Dr. Herminio OchoaGlucose Ql (U)NegativeNormalNEGATIVEWooster Community HospitalComment on above:Performed By: #### UAMIC #### [facility] [address] [place] [address] Dr. Herminio OchoaHemoglobin Ql (U)NegativeNormalNEGATIVEParkview Health on above:Performed By: #### UAMIC #### [facility] [address] [place] [address] Dr. Herminio OchoaKetones Ql (U)TRACEAbnormalNEGATIVEWooster Community HospitalComment on above:Performed By: #### UAMIC #### [facility] [address] [place] [address] Dr. Herminio OchoaLEUKOCYTESNegativeNormalNEGATIVEWooster Community HospitalComment on above:Performed By: #### UAMIC #### [facility] [address] [place] [address] Dr. Herminio OchoaMUCOUSNONE SEENNormalNONE SEENWooster Community HospitalComment on above:Performed By: #### UAMIC #### [facility] [address] [place] [address] Dr. Herminio OchoaNitrite Ql (U)NegativeNormalNEGATIVEWooster Community HospitalComment on above:Performed By: #### UAMIC #### [facility] [address] [place] [address] Dr. Herminio OchoapH (U)5.5 [pH]Normal5-9[facility] HospitalComment on above: Performed By: #### UAMIC #### [facility] [address] [address] [address] Herminio OchoaRBCNONE SEENAbnormal0-2The [facility] HospitalComment on above: Performed By: #### UAMIC #### [facility] [address] [address] [address] Herminio OchoaSPEC GRAVITY1.458Orbmxf1.005-<=1.025The [facility] HospitalComment on above:Performed By: #### UAMIC #### [facility] [address] [address] [address] Herminio Zurita PROTEINNegativeNormalNEGATIVE/ TRACEThe [facility] Comment on above:Performed By: #### UAMIC #### [facility] [address] [place] [address] Dr. Herminio OchoaUrobilinogen Qn (U)0.2 {Ricky'U}/dLNormal0.2 - 1.0The [facility] HospitalComment on above:Performed By: #### UAMIC #### [facility] [address] [address] [address] Herminio OchoaWBCNONE SEENNormalNONE SEENThe [facility] HospitalComment on above: Performed By: #### UAMIC #### [facility] [address] [place] [address] Dr. Herminio OchoaVITAMIN B12on 99-14-3277Pbheopibm (Vitamin B12) [Mass/Vol]321.0 pg/tVXcodir672.0-986.0The [facility] HospitalComment on above:Performed By: #### VITB12, PSASC #### [facility] [address] [place] [address] Dr. Herminio Ochoa Vital Signs Date TimeVital SignValuePerforming LgzeerwsiYwdklcgm74-22-1622 11:12-0400Body .3 cmAnthoabdi Lawrence DPM Work Phone: NOTwo [facility] HospitalIwmkpmzkbn23-14-5864 11:12-0400Body mass index (BMI) [Ratio]38.1 kg/r3Dqjmkof Rusher DPM Work Phone: [phone]10-22-2025 11:12-0400Body bauyta120.03 kgAnthony Rusher DPM Work Phone: [phone] [place], [place] 6142710-14-2025 08:46-0400Body nracri072.26 cmBl[facility]10-14-2025 08:40-0400Diastolic blood pressure 60 mm[Hg][facility]10-14-2025 08:40-0400Heart rate80 /min [facility]10-14-2025 08:40-0400Respiratory rate18 /min [facility]10-14-2025 08:40-4470FuG8% (BldA) [Mass fraction]95 %[facility]10-14-2025 08:40-0400Systolic blood bwpgugzh149 mm[Hg][facility]09-17-2025 13:40-0400 Body hbfemn656.3 cmAnthony Rusher DPM Work Phone: [phone] [place], [place] 6142709-17-2025 13:40-0400Body mass index (BMI) [Ratio]38.1 kg/b9Neuwnus Rusher DPM Work Phone: [phone] [place], [place] 6142709-17-2025 13:40-0400Body zcheyu803.03 kgAnthony Rusher DPM Work Phone: [phone] [place], [place] 6142709-11-2025 11:33-0400Body gwcnze028.26 cmBl[facility]ard [facility] System09-11-2025 11:33-0400Body mass index (BMI) [Ratio]38 kg/h5CgrgjueevBlanchard Valley Health System09-11-2025 11:33-0400Body weight 117.02 kgBlanchard Valley Health System09-11-2025 11:33-0400Diastolic blood pppkezts71 mm[Hg][facility]09-11-2025 11:33-0400Heart rate82 /minBlanchard Valley Health System09-11-2025 11:33-0522ReF3% (BldA) [Mass fraction]94 %[facility]09-11-2025 11:33-0400 Systolic blood xucxrnte189 mm[Hg][facility]09-10-2025 09:31-0400Body tayomu161.26 cmBlanchard Valley Health System09-10-2025 09:31-0400Body mass index (BMI) [Ratio]36.1 kg/g0DlfvmphqmBlanchard Valley Health System09-10-2025 09:31-0400Body ldabjf954.13 kgBlanchard Valley Health System 06-30-2025 13:45-0400Body pyqmbw132.3 cmAntwes Lawrence DPM Work Phone: [address] [place], [place] [address]Nsuopnqsrf61-00-9184 13:45-0400Body mass index (BMI) [Ratio]38.1 kg/g8Wcnnnvi Rusher DPM Work Phone: [facility] HospitalEwhlhyixsa37-57-4787 13:45-0400Body cuawgc091.03 kgAnthyelitza Rusher DPM Work Phone: [phone]23[facility] HospitalFlmgxtghkt44-69-2536 13:13-0400Body hnlhof708.26 Kael Aquino MD Work Phone: [phone]06-03-2025 13:13-0400 Body mass index (BMI) [Ratio]37.5 kg/k8MfdukuUmesh Aquino MD Work Phone: [phone] [place], [place] 4620106-03-2025 13:13-0400 Body hmensj775.26 kgUmesh Aquino MD Work Phone: [phone]88[facility]06-03-2025 13:13-0400 Diastolic blood sokmulmi74 mm[Hg]Umesh Aquino MD Work Phone: [phone] [place], [place] 4620106-03-2025 13:13-0400 Heart rate84 /Clary Aquino MD Work Phone: [phone] [place], [place] 4620106-03-2025 13:13-0400 Respiratory rate18 /Clary Aquino MD Work Phone: [phone])369-[address] [place], [place] 46[address]06-03-2025 13:13-0400 SaO2% (BldA) [Mass fraction]96 %Umesh Aquino MD Work Phone: [facility]06-03-2025 13:13-0400 Systolic blood hmgyppan18 mm[Hg]Umesh Aquino MD Work Phone: [facility]04-01-2025 12:16-0400 Diastolic blood mm[Hg]Christopher Mira DO Work Phone: [facility] HospitalRhaftesbds12-94-2260 12:16-0400Heart rate84 /min Christopher Mira DO Work Phone: [facility] HospitalOxywkfxgnf93-16-3472 12:16-3241KoC5% (BldA) [Mass fraction]97 %Christopher Mira DO Work Phone: [facility] HospitalEwfpsrzgrj37-92-0027 12:16-0400Systolic blood slfvyaro801 mm[Hg]Christopher Mira DO Work Phone: [facility] HospitalEfdfbbccrz63-29-5538 11:25-0500Diastolic blood qswlyqcg33 mm[Hg]Christopher Mira DO Work Phone: [facility] HospitalMmqrzgjjyc91-13-8106 11:25-0500Heart rate84 /min Christopher Mira DO Work Phone: [facility] HospitalOvzieblden34-95-6885 11:25-9510UnU8% (BldA) [Mass fraction]92 %Christopher Mira DO Work Phone: [facility] HospitalSjxmmclolb79-39-1943 11:25-0500Systolic blood iptzrked102 mm[Hg]Christopher Mira DO Work Phone: [facility] HospitalVkngryvjqj50-70-6194 11:01-0500Body wwpzri079.3 cmJose Kendall CIVIL CADD TECHNICIAN Work Phone: [facility] HospitalOosmwcqcnn94-76-6692 11:01-0500Body mass index (BMI) [Ratio]40.76 kg/s2OuvfiwJose Kendall NP Work Phone: [facility] HospitalRrecnqhpxy81-43-8453 11:01-0500Body ampzlm116.19 kgJose Kendall CIVIL CADD TECHNICIAN Work Phone: [facility] HospitalPyenwiyntb76-32-1203 11:01-0500Diastolic blood qytsuzsv40 mm[Hg]Jose Kendall CIVIL CADD TECHNICIAN Work Phone: [facility] HospitalNtlpactgsa24-11-6130 11:01-0500Heart rate71 /min Jose Kendall CIVIL CADD TECHNICIAN Work Phone: noTwo Rivers Psychiatric HospitalDhnyeinpcs31-27-4444 11:01-0500Systolic blood pburlehn133 mm[Hg]Jose Kendall CIVIL CADD TECHNICIAN Work Phone: [facility] HospitalUkryohvdkc59-72-3766 13:13-0400Body muvqqp743.3 Jaime Quevedoarthur CIVIL CADD TECHNICIAN Work Phone: [facility] HospitalFcyiczwgnq02-33-8185 13:13-0400Body mass index (BMI) [Ratio]40.14 kg/m2Lisa Kia CIVIL CADD TECHNICIAN Work Phone: [facility] HospitalOtvwriihmf80-99-0902 13:13-0400Body temperature 98.49 [degF]Idalmis Kia CIVIL CADD TECHNICIAN Work Phone: [facility] HospitalUbvsxufcyb00-43-3779 13:13-0400Body qeoakx370.29 kgLisa Taylorfranco CIVIL CADD TECHNICIAN Work Phone: [facility] HospitalVlcciebexy90-93-1680 13:13-0400Diastolic blood ammfbbwg56 mm[Hg]Idalmis Taylorfranco CIVIL CADD TECHNICIAN Work Phone: [facility] HospitalDyssnkmmcf46-97-0287 13:13-0400Heart rate79 /min Idalmis Kia CIVIL CADD TECHNICIAN Work Phone: [address] [address]Wbkahrqmoj74-02-2209 13:13-0400Respiratory rate18 /minLisa Kia CIVIL CADD TECHNICIAN Work Phone: [facility] HospitalWdwyzkbjpe33-66-8476 13:13-5639LrC0% (BldA) [Mass fraction]94 %Idalmis Quevedonelliez CIVIL CADD TECHNICIAN Work Phone: [facility] HospitalEdzkkmtbun34-62-4683 13:13-0400Systolic blood ekuimzjn223 mm[Hg]Idalmis Kia CIVIL CADD TECHNICIAN Work Phone: [facility] HospitalXfbjtmvhlo05-66-5244 12:17-0400Diastolic blood mm[Hg]Temi Meyers DO Work Phone: [facility] HospitalJshxuulybu33-57-3919 12:17-0400Heart rate81 /min Temi Meyers DO Work Phone: NOTwo Rivers Psychiatric HospitalRwbivgkhfx11-41-1214 12:17-0400Systolic blood mm[Hg]Temi Meyers DO Work Phone: [facility] HospitalGdadcalort02-07-3830 09:20-0400Body mougbo839.26 [email or web address] [employer] Other [employer] Other 09-18-2023 09:20-0400Body mass index (BMI) [Ratio] 42.17 kg/o8Tokfozj [employer] Other [employer] Other 09-18-2023 09:20-0400Body duigty266.55 [email or web address] Bl[employer] Other [employer] Other Encounters Encounter DateEncounter TypeCare ProviderFacilityStart: 68-51-0404xxilrcznralevar AquinoFacility:[facility] BellevueStart: 09-23-2025 End: 36-40-5018wvetdqsnllMJY STAFFFacility:[facility] Start: 09-12-2025 End: 77-06-0766Mrguimo encounter procedureJustbryanna Hanley DOHR-Jei-Ejwdqhkn Testing Work Phone: Start: 09-12-2025 End: 00-42-9692yknmseqyihTlnztt E Ross MD Work Phone: -Pre-Surgical TestingStart: 09-32-1188Qwiwrrwvg for preprocedural laboratory examinationJubernardino HanleyAdventhealth [facility]amon[facility] Start: 09-12-2025 End: 92-79-3505ncmplqougoWabied E Ross MD Work Phone: [phone]-Jebipoiig Health OrthopedicsStart: 09-12-2025 End: 50-18-7200Zolmqbi encounter procedureJubryanna Daigle [facility] Work Phone: Start: 09-12-2025 End: 83-89-2648Blkpyyfvnaktj examination doneJubernardino Daigle [facility] Centertart: 09-12-2025 End: 11-94-4010Bhwmany encounter procedureJubernardino Hanley DOXRay [facility] Start: 09-12-2025 End: 30-37-9406pjufsbmcbtPhpmpj E Ross MD Work Phone: -[facility] OrthoStart: 09-08-2025 End: 91-29-4321Bxerna outpatient visit 10 Kylee CHURCH Work Phone: NOVW [facility] OrthopaedicsComment on above:Right hip pain (Primary Dx); History of total hip replacement, rightStart: 09-08-2025 End: 03-75-7035mtustetgvvKOLPSLB J MEYERNot AvailableStart: 09-03-2025 End: 34-47-9031Jqxgqc flowsheetCherriony S Jesusher DPM Work Phone: noTN [place] PodiatryStart: 09-03-2025 End: 10-91-3926Geawdc flowsheetCherriony S Jesusher DPM Work Phone: noms [place] PodiatryStart: 09-03-2025 End: 77-63-6164lfnctdamtkBNAXHNZVL H SMITHNot AvailableStart: 09-03-2025 End: 97-98-2358Pckkiqq encounter procedureSaman Coleman DPM Work Phone: NODT [facility] PodiatryComment on above:Onychomycosis (Primary Dx); Neuropathy; Type II diabetes mellitus with neurological manifestations (HCC); Corns and callosities; Charcot's joint of left foot; Pain in both feetStart: 09-03-2025 End: 88-06-0359Tszfme follow up visit related to original pxAnthony S Rusher DPM Work Phone: [facility] PodiatryComment on above: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); Corns and callosities; Hammer toes of both feet; Charcot's joint of left foot; Equinus contracture of right ankle; Equinus contracture of left ankleStart: 09-03-2025 End: 95-35-7074jrnvtvzmxdZXQXDRH S RUSHERNot AvailableStart: 08-26-2025 ambulatoryCharlie McdonaldFacility:[facility]oledo Hospitaltart: 64-06-6213Cknaakvifh RecurringCharlie GONZALEZ CredibleStart: 08-26-2025 End: 79-78-1619kqqsrclarrVPLFirelands Regional Medical Center Work Phone: Start: 08-26-2025 End: 45-55-7095Kjofmbp encounter procedureChristopher Mira Malcolm DO-[facility] Work Phone: Start: 07-30-2025 End: 87-43-0737Rugrtw flowsBrenden Lawrence DPM Work Phone: noNem[facility] Hospital PodiatryStart: 07-30-2025 End: 60-85-8638Ilnsgg flowsBrenden Lawrence DPM Work Phone: [facility] IncNemaha [facility] Hospital PodiatryStart: 07-30-2025 End: 67-31-2746Ouocqq follow up visit related to original Travisyelitza Lawrence DPM Work Phone: [employer] IncNemaha County Hospital PodiatryComment on above: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); Corns and callosities; Hammer toes of both feet; Charcot's joint of left foot; Equinus contracture of right ankle; Hammer toe of right foot; Equinus contracture of left ankleStart: 07-30-2025 End: 20-30-9810uzbmimsusuODTPHYM S RUSHERNot AvailableStart: 07-24-2025 End: 85-31-3708mgtuwwhfveKBA [facility] Work Phone: Start: 07-24-2025 End: 97-66-7088Ilegspb encounter procedureSramona Woodward ZSZT-RVT-X-[facility] [place] Work Phone: Start: 07-23-2025 End: 56-87-2248Gaahyll encounter procedureLanden Oxana [facility] Work Phone: Start: 07-23-2025 End: 61-74-5546dbfwkrfjrkOEP [facility] Work Phone: Start: 07-21-2025 End: 66-93-9609Flauhr outpatient visit 15 minutesDejan CHURCH Work Phone: NOMS Kiko OrthopaedicsComment on above:Right hip pain (Primary Dx); History of total hip replacement, rightStart: 07-21-2025 End: 34-76-5684nhiozzrsreIXWFRNU J MEYERNot AvailableStart: 07-21-2025 End: 90-98-8589Lhqqup flowsheetDejan CHURCH Work Phone: [facility] OrthopaedicsStart: 07-21-2025 End: 50-11-1697Herrnl flowsOtilia CHURCH Work Phone: [facility] [place] OrthopaedicsStart: 06-30-2025 End: 46-66-8453Wokvme flowsheetAnthony S Rusher DPM Work Phone: [facility] [place] PodiatryStart: 06-30-2025 End: 64-26-6725Mqeolq flowsheetAnthony S Rusher DPM Work Phone: [facility] [place] PodiatryStart: 06-30-2025 End: 45-13-0972Stxzsw outpatient visit 15 minutesAnthony S Rusher DPM Work Phone: [facility] [place] PodiatryComment on above:Charcot's joint of left foot (Primary Dx); Type II diabetes mellitus with neurological manifestations (HCC); Corns and callosities; Hammer toes of both feet; Equinus contracture of left ankle; Equinus contracture of right ankleStart: 06-30-2025 End: 24-94-4501kpmgxpaitiAEVNZXV Carol LAWRENCENohemy AvailableStart: 06-29-2025 End: 39-07-0249WvhsnlZvpk Aichholz NP Work Phone: NOBF CW FMComment on above:Type 2 diabetes mellitus with insulin therapy (HCC); Primary hypertensionStart: 06-25-2025 End: 80-38-6916ehhdwkyuhzZmqmta E Ross MD Work Phone: [facility] Work Phone: Start: 06-25-2025 End: 08-08-6994Plifvez encounter procedureJustin Oxana [facility] Work Phone: Start: 06-25-2025 End: 56-01-1342Ocgpuvv encounter procedureJustin Oxana [facility] Start: 06-25-2025 End: 82-69-7395dqwgnilbjrLbefxy E Ross MD Work Phone: [facility] Work Phone: Start: 06-19-2025 End: 11-75-6824vcdiniygcmARIRWP A LEHMANNFacility:FT FM BellevueStart: 06-05-2025 End: 51-69-3923enafhzfuhyZCCKJU A LEHMANNFacility:FT FM [place]vueStart: 06-04-2025 End: 44-28-9063oxyrfnmcleTsrxyx E Ross MD Work Phone: [facility] Work Phone: Start: 06-04-2025 End: 70-53-1727Oqiatyh encounter procedureJustbryanna Daigle [facility] Work Phone: Start: 35-61-2985Fwlyuwlcgy Nilda Mcdonald MD-BH CredibleStart: 06-02-2025 End: 34-95-7655Hhcvsd flowsPascual Coleman DPM Work Phone: noms SWS PODIATRYStart: 06-02-2025 End: 49-90-8157Ovnpzd flowsPascual Coleman DPM Work Phone: noms SWS PODIATRYStart: 06-02-2025 End: 88-30-0729Syllqu outpatient visit 15 minutesSaman Coleman DPM Work Phone: noms SWS PODIATRYComment on above: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); Corns and callosities; Hammer toe of right foot; Onychomycosis; NeuropathyStart: 06-02-2025 End: 52-17-0655smlxouxrhjWXURGOKWP H SMITHNot AvailableStart: 05-24-2025 End: 85-86-2266OdyakhHrnd Aichholz CIVIL CADD TECHNICIAN Work Phone: noms CWM FMComment on above:Bilateral lower extremity edemaStart: 04-15-2025 End: 91-59-5889zaulmmgsbhPfocyv E Ross MD Work Phone: [facility] Work Phone: Start: 04-15-2025 End: 28-11-7304Jobcsna encounter procedureSkeyur Aquino MD Work Phone: [facility] Work Phone: Start: 03-27-2025 End: 76-54-9935Lgtmls flowsheetSaman Coleman DPM Work Phone: noms SWS PODIATRYStart: 03-27-2025 End: 62-60-7221Yhsbam Karl Coleman DPM Work Phone: noms SWS PODIATRYStart: 03-27-2025 End: 05-33-7000Hqcpii outpatient visit 15 minutesSaman Coleman DPM Work Phone: noms SWS PODIATRYComment on above:Onychomycosis (Primary Dx); Neuropathy; Type II diabetes mellitus with neurological manifestations (CMS/HCC) [E11.49]; Pain in both feet; Corns and callosities; Hammer toe of right footStart: 03-27-2025 End: 16-77-7523rujxfdplyyGWIYWTHVP Baldev SMITHNohemy AvailableStart: 03-17-2025 Registered Ab Aquino MD Work Phone: [facility] CredibleStart: 03-10-2025 End: 84-32-4007TuvpwyHfuq Aichholz NP Work Phone: noms CWM FMComment on above:Bilateral lower extremity edemaType 2 diabetes mellitus with peripheral neuropathy (CMS/HCC)Start: 02-20-2025 End: 95-38-2637Yemecyr encounter procedureSkeyur Aquino MD Work Phone: [facility] [place] Work Phone: Start: 02-20-2025 End: 82-15-3565lyhiazwdckSmammd E Ross MD Work Phone: [facility] Work Phone: Start: 33-09-2518Btdskevnvn Ab Aquino MD Work Phone: [facility]- CredibleStart: 02-12-2025 End: 32-29-9934Lvgvvoe encounter procedureSelect [facility] [place] Work Phone: Start: 02-12-2025 End: 11-55-6900apudpgoelzKMM STAFFOhiohealth Berger Hospital Work Phone: Start: 02-11-2025 End: 13-29-7513Nqqofp flowsheetChristopher Mira DO Work Phone: aNA JAGDEEPUEStart: 02-11-2025 End: 29-09-0644Owuzce flowsheetChristopher Mira DO Work Phone: [phone] BELLEVUEStart: 02-11-2025 End: 91-78-4261Ujhhxxv encounter procedureChristopher Mira DO Work Phone: ana BELLEVUEComment on above:Lumbar radiculopathy (Primary Dx); Lumbosacral radiculopathyStart: 02-11-2025 End: 53-02-4353zccghhmbbcEVEAUWYNUYP MIRANot AvailableStart: 02-03-[address] [facility]- CredibleStart: 02-03-2025 End: 67-72-8220Fujfnx flowsUzma Woodward CIVIL CADD TECHNICIAN Work Phone: aNELLY BELLEVUEStart: 02-03-2025 End: 50-24-4989Naufpn Naima Woodward CIVIL CADD TECHNICIAN Work Phone: aNELLY BELLEVUEStart: 02-03-2025 End: 39-87-6058wmmbvpukgaXSHEQ CARROLLNot AvailableStart: 01-20-2025 End: 25-98-7982jhhsyflgkbFWNMNNG J MEYERNot AvailableStart: 01-14-2025 End: 77-74-2764EdvsdxXyzy Aichholz CIVIL CADD TECHNICIAN Work Phone: N[facility] CWM FMComment on above:Type 2 diabetes mellitus with insulin therapy (CMS/HCC)Start: 12-29-2024 End: 23-45-5972ZgglmqYwtv Aichholz CIVIL CADD TECHNICIAN Work Phone: NOMS CWM FMComment on above:Type 2 diabetes mellitus with peripheral neuropathy (CMS/HCC)Start: 12-26-2024 End: 40-92-9791Vsuhbh flowsPascual Coleman DPM Work Phone: NOCV SWS PODIATRYStart: 12-26-2024 End: 72-76-8630Kppktr flowsPascual Coleman DPM Work Phone: noms SWS PODIATRYStart: 12-26-2024 End: 31-60-8551Uakcwsg encounter procedureCakely Coleman DPM Work Phone: [facility] PODIATRYComment on above:Onychomycosis (Primary Dx); Neuropathy; Type II diabetes mellitus with neurological manifestations ([facility]/HCC) [E11.49]; Pain in both feet; Corns and callositiesStart: 12-26-2024 End: 87-79-0982zbpgahjpcvCTUXRCLGY H SMITHNot AvailableStart: 12-11-2024 End: 64-71-0811DwtwkkCida Aichholz CIVIL CADD TECHNICIAN Work Phone: noms CWM FMComment on above:Type 2 diabetes mellitus with peripheral neuropathy ([facility])Start: 12-05-2024 End: 60-47-9544qonpbicsdaNahizu Casa AquinoFacility:FT FM [place]vueStart: 11-30-2024 End: 33-83-6399ZjezvcAipu Aichholz CIVIL CADD TECHNICIAN Work Phone: noms CWM FMComment on above:Type 2 diabetes mellitus with insulin therapy ([facility])Start: 11-28-2024 End: 24-19-3946tahcivdisqWtcrfw Casa AquinoFacility:FT FM [place]vueStart: 11-12-2024 End: 70-86-6601Sho Drop Fidel Aquino [facility] Start: 11-12-2024 End: 63-19-4555cyewjrpatfEftlsa E. RossFacility:FTMCStart: 35-05-5361drcukiqgaxlevar AquinoFacility:FT FM [place]Start: 10-30-2024 End: 55-99-0812cnmsjctnywRboscu E. RossFacility:FT FM [place]vueStart: 10-29-2024 End: 48-21-5555zmvquvsxuuClljnq E. RossFacility:FT FM [place]vueStart: 10-24-2024 End: 24-30-5310Jzmxlh flowsheetSaman Coleman DPM Work Phone: [facility] PODIATRYStart: 10-24-2024 End: 92-41-7125Inwwrg flowsheetSaman Baldev Jared DPM Work Phone: noms SWS PODIATRYStart: 10-24-2024 End: 85-23-5646Ujpeneo encounter procedureSaman Baldev Jared DPM Work Phone: noms SWS PODIATRYComment on above:Type II diabetes mellitus with neurological manifestations (CMS/HCC) [E11.49] (Primary Dx); Charcot's joint of left foot; Neuropathy; OnychomycosisStart: 10-24-2024 End: 77-70-8298ileagyakumUEGMBCUGA H SMITHNot AvailableStart: 10-22-2024 End: 06-63-2988Tcrigp flowsheetChristopher Mira DO Work Phone: noMS [facility] [facility] ROUTEStart: 10-22-2024 End: 16-22-4525Wgtgxl flowsheetChristopher Mira DO Work Phone: N[facility] [facility] R[facility]TEStart: 10-22-2024 End: 60-05-9424Albobjh encounter procedureChristopher Mira DO Work Phone: NOMS [facility] STATE ROUTEComment on above:Lumbar radiculopathy (Primary Dx); Lumbosacral radiculopathyStart: 10-22-2024 End: 81-64-5358yfjcplbdsbHNFZJZOIPCE HASSETTNot AvailableStart: 10-16-2024 End: 24-92-1755Gmhxpe Demetra Kendall CIVIL CADD TECHNICIAN Work Phone: NOMS [facility] [facility] ROUTEStart: 10-16-2024 End: 25-67-4884Nzhlyo Demetra Kendall CIVIL CADD TECHNICIAN Work Phone: NOMS [facility] [facility] R[facility]TEStart: 10-16-2024 End: 59-36-3266Vscrdg outpatient visit 25 minutesJose Kendall CIVIL CADD TECHNICIAN Work Phone: NOMS [facility] STATE ROUTEComment on above:Lumbar radiculopathy (Primary Dx); Right leg weakness; Diabetic polyneuropathy associated with type 2 diabetes mellitus (CMS/[facility])Start: 10-16-2024 End: 66-83-8894cpcyankhxaDOBRWM FAIZANot AvailableStart: 10-04-2024 End: 14-50-0709MxzfogNzde Aichholz CIVIL CADD TECHNICIAN Work Phone: NOMS CWM FMStart: 09-27-2024 End: 23-46-9832Yfjfki flowsheetTyler Alt RNNOMS CI BHStart: 09-27-2024 End: 03-16-2998Yxphrm flowsheetTyler Alt RNNOMS CI BHStart: 09-27-2024 End: 58-68-0390pmhfyoxitvFYUOE ALTNot AvailableStart: 09-26-2024 End: 23-71-1893koirzhkpyrJqivdu Casa RossFacility:FT FM [place]vueStart: 09-25-2024 End: 47-92-2220VdulpqXaqx Aichholz CIVIL CADD TECHNICIAN Work Phone: NOMS CWM FMComment on above:Type 2 diabetes mellitus with insulin therapy ([facility])Start: 09-17-2024 End: 88-72-3217IivlczWuxr Emyhfranco CIVIL CADD TECHNICIAN Work Phone: NOMS CWM FMComment on above:Cervical pain (neck)Start: 21-07-3771mxutaddydyZgcdgt RossFacility:FT FM [place]vueStart: 09-15-2024 End: 00-19-0797TytdxcUfnu Aichholz CIVIL CADD TECHNICIAN Work Phone: NOMS CWM FMComment on above:Other chronic painType 2 diabetes mellitus with insulin therapy ([facility])Start: 09-12-2024 End: 86-76-3166Zktgba Karl Coleman DPM Work Phone: NOMS SWS PODIATRYStart: 09-12-2024 End: 53-68-4626Zqjiqm Karl Coleman DPM Work Phone: noms SWS PODIATRYStart: 09-12-2024 End: 14-03-8235njprztmtcqGGBKYDWTT H SMITHNot AvailableStart: 09-12-2024 End: 91-36-7582Rciunsg encounter procedureSaman Coleman DPM Work Phone: noms SWS PODIATRYComment on above:Charcot's joint of left foot (Primary Dx); Type II diabetes mellitus with neurological manifestations (CMS/HCC) [E11.49]; NeuropathyStart: 09-04-2024 End: 07-67-3002Zqjmnp flowsheetLisa Aichholz CIVIL CADD TECHNICIAN Work Phone: NOTH CWM FMStart: 09-04-2024 End: 83-14-8981Ztfmzi flowsheetLisa Aichholz CIVIL CADD TECHNICIAN Work Phone: NOMD CWM FMStart: 09-03-2024 End: 61-79-6783Wcueauimw Result EncounterLisa Aichholz CIVIL CADD TECHNICIAN Work Phone: noms External Department UnsolicitedStart: 09-03-2024 End: 70-33-7146Yhoeslryb Result EncounterLisa Aichholz CIVIL CADD TECHNICIAN Work Phone: noms External Department UnsolicitedStart: 08-12-2024 End: 57-68-5881AcmzgaEhba Aichholz CIVIL CADD TECHNICIAN Work Phone: NOGM CWM FMComment on above:Type 2 diabetes mellitus with insulin therapy (CMS/HCC) (Primary Dx)Start: 07-31-2024 End: 38-50-7339TngkukGwih Aichholz CIVIL CADD TECHNICIAN Work Phone: NOTG CWM FMComment on above:Type 2 diabetes mellitus with peripheral neuropathy (CMS/HCC)Start: 07-25-2024 End: 83-10-0803Uozpjo outpatient visit 15 minutesSaman Coleman DPM Work Phone: noms SWS PODIATRYComment on above:Onychomycosis (Primary Dx); Pain in both feet; Type II diabetes mellitus with neurological manifestations (CMS/HCC); Charcot's joint of left foot; NeuropathyStart: 07-25-2024 End: 65-10-0569Qpaqov flowsPascual Baldev Jared DPM Work Phone: noms SWS PODIATRYStart: 07-25-2024 End: 34-80-9494Qvsdot Karl Baldev Jared DPM Work Phone: noms SWS PODIATRYStart: 07-24-2024 End: 86-50-7390Fbhpxn flowsheetIdalmis Adam CIVIL CADD TECHNICIAN Work Phone: NOJI CWM FMStart: 07-24-2024 End: 92-50-4152Yukviu flowsheetIdalmis Quevedohholz CIVIL CADD TECHNICIAN Work Phone: noms CWM FMStart: 07-24-2024 End: 50-68-9512Hklndo outpatient visit 25 minutesLisa Adam CIVIL CADD TECHNICIAN Work Phone: noms CWM FMComment on above:Type 2 diabetes mellitus with insulin therapy (CMS/HCC) (Primary Dx); Body mass index (BMI) 40.0-44.9, adult (CMS/HCC); Morbid (severe) obesity due to excess calories (CMS/HCC); Proliferative diabetic retinopathy of both eyes associated with type 2 diabetes mellitus, unspecified proliferative retinopathy type (CMS/HCC); Type 2 diabetes mellitus with peripheral neuropathy (CMS/HCC); Bilateral lower extremity edema; Primary hypertension (CMS/HCC); SeborrheaStart: 07-22-2024 End: 13-19-7782KvmhrwSkqi Aichholz CIVIL CADD TECHNICIAN Work Phone: NOMS CWM FMComment on above:Type 2 diabetes mellitus with insulin therapy (CMS/HCC)Start: 07-17-2024 End: 14-52-4897FpiaeaMwev Aichholz CIVIL CADD TECHNICIAN Work Phone: NOMS CWM FMComment on above:Primary hypertension (CMS/HCC); Stage 3 chronic kidney disease, unspecified whether stage 3a or 3b CKD (HCC) (CMS/HCC); Type 2 diabetes mellitus with peripheral neuropathy (CMS/HCC)Start: 07-07-2024 End: 22-47-6047QqwynmXtlf Aichholz CIVIL CADD TECHNICIAN Work Phone: noms CWM FMComment on above:Type 2 diabetes mellitus with insulin therapy (CMS/HCC)Start: 07-03-2024 End: 96-82-6900Xgwwuf flowsheetChristopher Mira DO Work Phone: noms [facility] [facility]TEStart: 07-03-2024 End: 69-13-1312Kddzrs flowsheetChristopher Mira DO Work Phone: noms [place] [facility]OUTEStart: 07-03-2024 End: 64-85-8795Naqonlp encounter procedureChristopher Mira DO Work Phone: noms [facility] STATE ROUTEComment on above:Lumbar radiculopathy (Primary Dx); DDD (degenerative disc disease), lumbarStart: 41-52-0871FgfcbmDksu Aichholz CIVIL CADD TECHNICIAN Work Phone: noms CWM FMComment on above:Type 2 diabetes mellitus with peripheral neuropathy (CMS/HCC) (Primary Dx); Cervical pain (neck)Start: 03-57-6515XzgcwfIpci Aichholz CIVIL CADD TECHNICIAN Work Phone: noms CWM FMComment on above:Type 2 diabetes mellitus with peripheral neuropathy (CMS/HCC) (Primary Dx); Cervical pain (neck)Start: 12-22-2023 End: 43-66-8608Orwmop follow up visit related to original Link CHURCH Work Phone: noms CI ORTHOPAEDICSComment on above:S/P total right hip arthroplasty (Primary Dx); Right hip painStart: 11-08-2023 End: 33-77-1113zwkijtrshjZgwr J AichholzFacility:[facility] HospitalStart: 11-02-2023 End: 81-06-7642Sfbtqiq encounter procedureDejan CHURCH Work Phone: noms HealthcareStart: 10-23-2023 End: 68-22-6134Wvtqcbtrnatr Charis CHURCH Work Phone: NOTN HealthcareStart: 10-12-2023 End: 33-46-4122wkqvpnmnolEcmk J AichholzFacility:[facility] HospitalStart: 09-29-2023 End: 98-55-9299yhuddveawuKttlzzz Blades Other [employer] Other start: 33-96-0174Echqscovc encounterRasheeda SantamariaFPG [facility] NeurosurgeryStart: 07-31-2023 End: 11-46-1432comahwyzyoYehnkyz Bladecarol Other [employer] Other start: 98-80-6863YMIG visit new patientDesedrick Santamaria [facility] NeurosurgeryStart: 05-12-2023 End: 50-80-8308syzgzepbtrIID [facility] Work Phone: Start: 05-12-2023 End: 96-20-6561Twhhoqt encounter [facility] [place] Work Phone: Start: 96-16-1184Guzctzkpyn [facility]-BH CredibleStart: 68-54-7111dkhgqjmpsmRYIQEJQMWHT MIRA Facility:I1Pebqo: 01-27-2023 End: 93-99-5137itoqcgeyqqOTV IDALMIS AICHHOLZFacility:G5Jqncu: 12-10-2022 End: 86-41-8627qmueozxenlYDK IDALMIS AICHHOLZFacility:R7Okpkv: 08-02-2022 End: 00-55-9530ravcuqtnbxGPZ IDALMIS AICHHOLZFacility:S3Lntkv: 07-08-2022 End: 79-80-1727paqkbujwqpHHV IDALMIS AICHHOLZFacility:K9Umajm: 12-06-2017 End: 72-52-4999GrotpftxhkGMQZUNT PHYSICIANFacility:[facility] Procedures DateProcedureProcedure DetailPerforming ClinicianStart: 55-58-6642Mentp X-ray of left shoulderSajudith Aquino MD Work Phone: Start: 88-36-3702Uqfqs X-ray of left shoulderStart: 77-20-1349Fmhlm hip unilateral with pelvis 2-3 viewsMattklaus CHURCH Work Phone: Start: 29-11-3420Pmocm X-ray of left shoulderFanizoey Miles FINE Work Phone: Start: 96-46-0203Xoitrznlklhzoqs of bilateral kidneys Umesh Aquino MD Work Phone: Start: 10-76-3518BYAOB Mamta Woodward CIVIL CADD TECHNICIAN Work Phone: Start: 29-15-4506AYA BASIC METABOLIC PANELLisa Kia CIVIL CADD TECHNICIAN Work Phone: Start: 76-73-0287SMHPH Esther Kendall CIVIL CADD TECHNICIAN Work Phone: Start: 37-71-0617Vdjzc hip unilateral with pelvis 2-3 viewsMajose angel CHURCH Work Phone: Start: 04-86-4728Lfriqftboig of hipSkeyur Aquino Start: 24-62-9040EN pre/post mri xrayStart: 05-12-2023 MR lumbar spine wo conStart: 61-52-0202QKJ screeningCNP IDALMIS ADAMComment on above:Performed By: #### VITB12, PSASC #### [facility] [address] [place] [address] Dr. Durham [facility] MassachusettsStart: 09-41-7627QszbyexevhtLzuaxss Meyer PA Work Phone: Start: 76-27-0851AshdmcqezaaGxdnwo Ross Adenoid excisionSajudith Aquino AppendectomyUmesh Aquino Arthroscopy of kneeSkeyur Aquino CholecystectomySajudith Aquino H/O splenectomySamuel Miles TonsillectomySamuel Miles Plan of Treatment DateCare ActivityDetailAuthorStart: 62-10-5580Kxiekogye for malignant neoplasm of colonNOMS HealthcareStart: 01-18-2027 End: 64-48-9634Tlhnhaa encounter procedureNOMS SWS ORTHOStart: 12-08-2025 End: 39-09-8018Hgdxmid encounter ylgxaemvu89/26/2026 2:15 PM EST Procedure Visit [facility] [address] [place] [phone] Saman Coleman DPM [address] [place] [address] NOMCarol [facility] PodiatryStart: 11-12-2025 Urine screening for proteinDiabetes: Urine Protein ScreeningNOTN Healthcare Start: 12-17-2025Medicare Annual Wellness (AWV)Medicare Annual Wellness (AWV) NOMS HealthcareStart: 09-24-2025 End: 02-78-8278Iupgcar encounter blkkkasgx00/12/2025 4:00 PM EST Office Visit [facility] [address] [place] [address] Kai Lawrence, DPGold [address] [place] [phone] NOMCarol [facility] PodiatryStart: 51-85-7180Jqylv X-ray of left shoulderXR shoulder LT min 2V*[facility] XR Shoulder - left ViewsToledo Hospitaltart: 09-08-2025 End: 61-37-2113Ynetqql encounter jssqduozq73/27/2025 1:15 PM EDT Office Visit [facility] [address] [place], [id number] Dejan Burt, RANJIT [address] [place] [address] NIMESHCarol [facility] OrthopaedicsStart: 09-03-2025 End: 66-44-3490Izgdauk encounter procedureNOMS [place] PODIATRYStart: 09-03-2025 End: 87-64-9978Mzrtwzv encounter iaepusrsa95/22/2025 11:15 AM EDT Office Visit [facility] [address] [place] [address] Kai Lawrence, DPM [address] [place], [place] [id number] ArrivedHEIDYMS CardenasPittsburgh PodiatryComment on above:ArrivedStart: 09-01-2025 End: 85-10-2157Jhgdovk encounter eqplbbtei81/20/2025 1:15 PM EDT Office Visit N[facility]HCarol [facility] [address] [facility] [address] [id number] Dejan Burt, PA [address] [facility] [address] [facility] OrthopaedicsStart: 07-30-2025 End: 64-38-6976Txkamtn encounter procedureNOMS [place] PodiatryComment on above: ArrivedStart: 92-54-3082Bydjg X-ray of left shoulderXR shoulder LT min 2V* [facility]: 27-63-4796YB Shoulder - left Views [facility]: 07-21-2025 End: 81-99-7974Xcwabjk encounter gkqsusfgj34/08/2025 2:30 PM EDT Office Visit NIMESHCarol [facility] [address] [place] [phone] Dejan Burt, PA [address] [place] [address] Right hip pain (Primary Dx); History of total hip replacement, rightNOMS [facility] OrthopaedicsComment on above:Right hip pain (Primary Dx); History of total hip replacement, rightStart: 96-16-1194PWJJO-19 Vaccine ( season)COVID-19 Vaccine ( season)NOMS HealthcareStart: 87-32-5716Zlnmebvsu vaccinationInfluenza Vaccine (#1)NOMS HealthcareStart: 06-30-2025 End: 30-13-0106Panbxyg encounter procedureNOMS [place] PodiatryComment on above: Type II diabetes mellitus with neurological manifestations (HCC); Corns and callosities; Hammer toe of right footStart: 20-62-6463Adfcf X-ray of left shoulderXR shoulder LT min 2V*[facility]: 14-61-4922UA Shoulder - left ViewsToledo Hospitaltart: 06-03-2025 End: 06-12-9677Adrvpiu encounter dghpfbyuk36/22/2025 3:00 PM EDT Office Visit SOF[facility]A JENSEN [address] [place] [address] Temi Meyers DO [address] [place], [place] [address] SOFÍA MILLANEVUEStart: 06-02-2025 End: 57-02-2591Ivirskv encounter procedureNOMS SWS PODIATRYComment on above: ArrivedStart: 05-26-2025 End: 11-33-9638Akgtkee encounter wsrrmquvh91/14/2025 3:00 PM EDT Office Visit SOFÍA JENSEN [address] [place], [place] [address], [place] [address] Lluvia Woodward NP [address] [place] [address] SOFÍA GANNONUEStart: 79-69-0744Jxhksfsw screeningDiabetes: Retinopathy ScreeningNOMS HealthcareStart: 90-22-0681Rrnrepiepnjk Vaccine: 65+ Years (1 of 2 - PCV) Pneumococcal Vaccine: 65+ Years (1 of 2 - PCV)NOMS HealthcareComment on above: Postponed from 1964 (Patient Refused)Postponed from 1977 (Patient Refused)Start: 03-27-2025 End: 78-13-9642Oqyykda encounter procedureNOMS SWS PODIATRYComment on above: ArrivedStart: 38-79-3537Ewzbm screening for proteinDiabetes: Urine Protein ScreeningNOTN HealthcareStart: 02-12-2025 End: 75-83-6776Alobgzw encounter procedureNOMS [facility] [facility] ROUTEStart: 02-11-2025 End: 15-00-4640Ejolfzp encounter procedureANA BELLEVUEComment on above:Arrived Start: 02-05-2025 End: 00-17-8523Eaeqztf encounter procedureNOMS [facility] ROUTEStart: 02-03-2025 End: 04-87-7548Nkeacbo encounter procedureANA BELLEVUEComment on above:Arrived Start: 01-20-2025 End: 65-41-6399Qjxufeb encounter procedureNOMS CI ORTHOPAEDICSStart: 12-26-2024 End: 74-67-7056Chrobgz encounter procedureNOMS SWS PODIATRYComment on above: ArrivedStart: 72-06-8999Skzgsdvqvr A1c measurementDiabetes: Hemoglobin N0RWKKQ HealthcareStart: 12-21-2024Medicare Annual Wellness (AWV)Medicare Annual Wellness (AWV)[facility]: 10-24-2024 End: 25-19-4204Gsvsskz encounter procedureNOMS SWS PODIATRYComment on above: ArrivedStart: 10-22-2024 End: 99-32-6014Oaqdgav encounter procedureNOMS [facility] STATE ROUTEComment on above:ArrivedStart: 10-16-2024 End: 09-96-0236Kikwb BlockNerve Block Procedures Routine Lumbar radiculopathy Expected: 10/16/2024 (Approximate), Expires: 10/16/2025[facility] Work Phone: comment on above:Expected: 10/16/2024 (Approximate), Expires: 10/16/2025Start: 10-16-2024 End: 24-29-2272Qckbyhi encounter procedureNOMS MI[facility] STATE ROUTEComment on above:ArrivedStart: 67-81-2521Urynnhicm vaccinationInfluenza Vaccine (#1)NOMS HealthcareComment on above:Postponed from 07/14/2024 (Patient Does Not Have Time)Start: 09-04-2024 End: 19-62-7383Vvtfcrv encounter procedureNOMS [facility] FMComment on above:Arrived Start: 24-14-8121Ztrcdqjbof A1c measurementDiabetes: Hemoglobin [id number] HealthcareStart: 08-23-2024 End: 72-99-9613Fnffu metabolic 1998 panel - Serum or PlasmaBasic metabolic panel Lab Routine Type 2 diabetes mellitus with insulin therapy ([facility] [place]) Expected: 08/23/2024 (Approximate), Expires: 07/24/2025[facility] Work Phone: Comment on above:Expected: 08/23/2024 (Approximate), Expires: 07/24/2025Start: 08-23-2024 End: 88-78-2305Tfmudqykty A1c/Hemoglobin.total in BloodHemoglobin A1c Lab Routine Type 2 diabetes mellitus with insulin therapy ([facility] [place]) Expected: 08/23/2024 (Approximate), Expires: 07/24/2025NOTN HealthcareComment on above: Expected: 08/23/2024 (Approximate), Expires: 07/24/2025Start: 07-25-2024 End: 44-58-6899Sttoggb encounter sdmufyrbx94/12/2024 2:30 PM EDT Procedure Visit [facility] [address] [place] [id number] Saman Coleman DPM [address] [place] [address] [facility]WS PODIATRYStart: 07-24-2024 End: 62-49-4964Iwqcpnj encounter baxomhwtz71/11/2024 1:00 PM EDT Office Visit [facility] [address] [place] [address] Idalmis Adam NP [address] [place] [address] [facility] CWM FMStart: 07-03-2024 End: 58-70-6775Ckwfkxq encounter ivpimddhd25/21/2024 12:15 PM EDT Office Visit [facility] [address] [place] [phone] Temi Meyers DO [address] [place] [address] ArrivedNOJFK [facility] STATE ROUTEComment on above:ArrivedStart: 91-45-2070Nqyolqmenj A1c measurementDiabetes: Hemoglobin C5SPZTZ HealthcareStart: 93-57-2052Foivn screening for proteinDiabetes: Urine Protein ScreeningCASTLEVIEW [facility]OS[facility]ITAL HealthcareStart: 01-22-2024 End: 49-26-5862Szltymt encounter procedureBE[facility]FL[facility] FMStart: 65-83-6113Axbrymcbbk A1c measurementDiabetes: Hemoglobin G9LHFLG HealthcareStart: 49-19-7201SJZ Vaccines (1 of 1 - Standard series)MMR Vaccines (1 of 1 - Standard series)[facility] HealthcareStart: 04-43-8237Jizmudpdcltx Vaccine: 65+ Years (1 of 2 - PCV) Pneumococcal Vaccine: 65+ Years (1 of 2 - PCV)[facility] HealthcareStart: 1970 Glaucoma screeningDiabetes: Retinopathy ScreeningNOTN HealthcareStart: 09-84-4133RItX/Tdap/Td Vaccines (1 - Tdap)DTaP/Tdap/Td Vaccines (1 - Tdap)[facility] HealthcareStart: 02-41-8881Crylcdwaunii Vaccine: 65+ Years (1 - PCV)Pneumococcal Vaccine: 65+ Years (1 - PCV)[facility] HealthcareStart: 53-60-5395Fwnnxqppyoay Vaccine: 65+ Years (1 of 2 - PCV)Pneumococcal Vaccine: 65+ Years (1 of 2 - PCV) [facility] HealthcareStart: 03-53-3492Pywvdbgrs for malignant neoplasm of colonNOMS HealthcareGlucose measurement estimated from glycated hemoglobinBlanchard Valley Health SystemRenal function 2000 panel - Serum or PlasmaGulf Coast Medical Center Immunizations Immunization DateImmunizationNotesCare JqdowxckLsznocnn52-19-5401drliotlwf virus vaccine, unspecified formulationSkeyur Aquino 555-9570Maidgd-FtmiiSt. [facility] Hospital 83-61-5251fazpxkdtc, high dose seasonal, preservative-freeLisa Kia CIVIL CADD TECHNICIAN Work Phone: noTwo [facility] Psychiatric HospitalXhsuibsaht05-02-6084Smczwxnzl, Seasonal, Quadrivalent, AdjuvantedMattklaus CHURCH Work Phone: noTwo Rivers Psychiatric HospitalFjftengmsa23-99-8062udhrxkfou virus vaccine, unspecified formulationChristopher Mira DO Work Phone: [phone]-WduzySt. Francis Hospital 02-70-9438hdxjnglbk virus vaccine, unspecified formulationSkeyur Aquino 172-7871Fhmkyh-OvrrpSt. Francis Hospital 33-85-5993Wloxfqpbu, injectable, Madin Angle Canine Kidney, preservative free, quadrivalentMajose angel CHURCH Work Phone: noTwo [facility] HospitalXkpyqpkoxk02-58-7227RAHS-UrX-1 mRNA (ljkeglkqwrq-bkba-tlzhqgh) vaccineSkeyur Aquino 304-4860Zaxmih-XnrklSt. Francis Hospital 58-06-8579bevmixgsm virus vaccine, unspecified formulationSrolanaric Miles 733-4806Kxtswk-OtswfSt. Francis Hospital 41-25-2911Btmfmlhul, injectable, Madin [place] Canine Kidney, preservative free, quadrivalentMajose angel CHURCH Work Phone: noTwo [facility] Psychiatric HospitalHzrxlanoch79-97-5281HZPN-GlT-0 (COVID-19) mRNA BNT-162b2 Bijan Aquino 941-4916Rpjrau-DbtkgSt. Francis Hospital Comment on above:Result Comment: 2024-10-24: LSF0280-04-0006ZZEG-CkE-6 (COVID- 19) mRNA BNT-162b2 Bijan Aquino 770-4210Zzsvjw-RilueSt. Francis Hospital Comment on above:Result Comment: 2024-10-24: MJG2975-33-4246spgelsqat virus vaccine, unspecified formulationSkeyur Aquino 628-7135Gyynhh-WszcfSt. Francis Hospital 34-73-0225Imtkfbqxp, injectable, Madin Angle Canine Kidney, preservative free, quadrivalentDejan CHURCH Work Phone: [facility] HospitalRzyaffeubn66-98-2286itqgnvczq virus vaccine, unspecified formulationSkeyur Aquino 170-0614Yhvrti-EpsxcSt. Francis Hospital 15-86-9627nihdrvdzv, injectable, quadrivalent, preservative freeDejan CHURCH Work Phone: [facility] HospitalCighvyxkol76-56-7286ymllozjdr virus vaccine, unspecified formulationSkeyur Aquino 925-6042Itbfmu-MzduzSt. Francis Hospital 67-55-9903gyvzoxpxu, injectable, madin angle canine kidney, preservative free Dejan CHURCH Work Phone: [facility] HospitalUdqdxmgktl85-67-9330kzuqp kwoeimicw-Q2M0-80, preservative-free, injectableDejan CHURCH Work Phone: [facility] Healthcare Payers DatePayer CategoryPayerPolicy [id number] MEDICARE ADVANTAGE ANTHEM MEDICARE ADVANTAGE [id number] 2023-Present [address] [place] [id number] 2023Medicare (Managed Care)ANTHEM MEDICARE ADVANTAGE Member Subscriber Plan / Payer (Effective 2023-Present) Name: Robbin Bartlett Relation to Subscriber: Self Name: Robbin Bartlett Payer ID: Not on file Group ID: [id number] Type: Not on file Address: [address] [place] [id number]-zlf 90-81-9623Idum Cross Ralph [id number] 2.16.840.6.459744.0862-01-1960 [id number] 2.16.840.1.454499.3.579.2.593 [id number] 2.16.840.1.006541.3.57[id number] 2.16.840.1.825517.3.57[id number] 2.16.840.1.409979.3.579.2.47589-46-3089Hvmtdji0372457 2.16.840.1.274999.3.57[id number] 2.16.840.1.801016.3.57[id number] 2.16.840.1.969389.3.579.[id number] 2.16.840.1.359272.3.579.2.41009-84-9772Ibziyqt47750231 2.16.840.1.666345.3.579.2.68186-46-0231Uhbfdfe59934364 2.16.840.1.667156.3.579.2.16242-64-2134Uusnkal68544988 2.16.840.1.150665.3.579.2.32937-41-2230Lmjyqvx59943480 2.16.840.1.402282.3.579.2.20630-85-2950Vrkmbqq56592367 2.16.840.1.354242.3.579.2.45882-82-0396Ivpmkgi67713021 2.16.840.1.177253.3.579.2.87305-42-4184Fmjlgdo24055070 2.16840.1.241439.3.579.2.90898-05-1853Irqsgwg42753367 2.16840.1.805591.3.579.2.92036-35-2343Ibhhkuh78404014 2.840.1.173045.3.579.2.26976-88-5728Yhrycwp33526060 2.840.1.427840.3.579.2.09913-85-2543Uhvnpjp93443595 2.840.1.251107.3.57[id number] 2.840.1.195429.3.579.2.55954-98-0724Dwtonxu83501506 2.16840.1.697579.3.579.2.938527-43-3060Thkvybi47461103 2.840.1.708955.3.579.2.866603-06-3782Xlcajim07621761 2.16840.1.737762.3.579.2.547861-13-6883Bgrfvta99936010 2.16840.1.825696.3.579.2.039048-50-8390Kqavolt78082645 2.16840.1.868518.3.579.2.230064-15-7113Uedsndi26180621 2.16840.1.366130.3.579.2.467707-74-4662Vqpqbsq76961710 2.840.1.016321.3.579.2.009426-24-3138Nzoivmq79506350 2.840.1.320755.3.579.2.309281-72-4521Mfjgnvb7335759 2.0.1.572996.3.579.2.201041-94-1426Onpbbkz7222953 2.840.1.510387.3.579.2.371984-59-5659Gbnllie6065383 2.0.1.726167.3.579.2.339974-43-1658Bypuert0928633 2.0.1.097787.3.579.2.798361-29-3944Tdnxxjk9988333 2..1.973278.3.579.2.657413-34-7489Izcmwod8554394 2.0.1.942702.3.579.2.806327-89-5960Fflahju1170311 2.0.1.114380.3.579.2.091952-07-1096Shewpfn1282224 2.0.1.221830.3.579.2.027347-27-5603Oiiysgr4439063 2.0.1.173076.3.579.2.308176-32-5772Scsmctp3576911 2.0.1.826054.3.579.2.570157-86-1251Xcdvsfu4961576 2.840.1.394441.3.57[id number] 2.16.840.1.919394.3.579.2.102Xkcxwaj88979299 2.16.840.1.811042.3.579.2.531 Gmrgfll35920192 2.16.840.1.302574.3.579.2.568Vpnzndw73297405 2.16.840.1.413743.3.579.2.838Yqsrywq74011994 2.16.840.1.056909.3.579.2.531 Yqhjmob53308917 2.16.840.1.589820.3.579.2.191Ppwmkns31486526 2.16.840.1.438015.3.579.2.702Hlqbkht17843183 2.16.840.1.849923.3.579.2.531 Social History DateTypeDetailFacilityTobacco smoking status NHISUnknown if ever smokedOhiohealth Berger Hospital Work Phone: Start: 11-71-8646Hso [facility]igned At [facility]: 11-02-2023 End: 54-71-8990Kpz Assigned At [facility] Hellotravel Other start: 12-19-2023 End: 72-85-5449Jmlboqw smoking status NHISEx-smokerNOMS HealthcareComment on above:denies use. End: 83-37-1347Ubfahzc of tobacco useCurrent smokerNOMS Healthcare End: 47-63-8285Ihpikif of tobacco useCigarette SmokerNOMS HealthcareStart: 11-02-2023 End: 43-69-0977Rbamhzmzjr smoked current (pack per day) - Reported1.5NOMS HealthcareStart: 12-19-2023 End: 28-74-3143Kgosyfk use and exposureSmokeless tobacco non-userNOMS Healthcare Start: 12-22-2023 End: 73-50-6289Fccrzwi intakeLifetime non-drinker (finding)[facility] HealthcareWithin the last year, have you been afraid of your partner or ex-partner?NoNOMS HealthcareAre you now , , , , never or living with a partner?Never marriedNOMS HealthcareHow often to you have a drink containing alcohol?NeverNOTN HealthcareStart: 22-98-9444Aqs many standard drinks containing alcohol do you have on a typical day?Patient does not drinkNOMS HealthcareDo you feel stress - tense, restless, nervous, or anxious, or unable to sleep at night because yourmind is troubled all the time - these days [OSQ] Not at allNOMS Healthcare(I/We) worried whether (my/our) food would run out before (I/we) got money to buy more.Never trueNOTN HealthcareStart: 12-19-2023 Tobacco CommentQuit smoking >10 years ago. 20-30 cigarettes/dayNOTN Healthcare Start: 71-58-3387Jjp Assigned At BirthNot on fileCASTLEVIEW HOSPITAL HealthcareStart: 54-14-0766Idubeec smoking status NHISNever smoked tobacco (finding)[facility]: 02-13-2025 End: 09-96-5275LodJyod (finding)[facility] Medical Equipment Procedure CodeEquipment CodeEquipment Original TextEquipment IdentifierDates Start: 72-81-5238vbg needels BD UF, See Instructions, 60 pen needle(s), 3, BD UF III mini pen needles 57oC2kr use bid to inject insulin, [facility] #[id number], Supply, 174.5, cm, 09/26/24 13:54:00 EST, Height/Length Dosing, 123.8, kg, 09/26/24 13:54:00 EST, Weight DosingStart: 10-04-2024 Clinical Notes 07-31-2023 to 09-08-2025 Note Date & UigkPyibLtltdvot63-85-7552 History of Present illness Narrative* RANJIT Sheppard - 09/08/2025 1:15 PM EDT Orthopedic Office note: NAME: Robbin Bartlett : 1960 (EST PT) - RECHECK (R) HIP DISCOMFORT S/P PT REFERRAL @[facility] HX (R) PATTI 11/08/23 (~1 YR, 11 MONTHS) XRAY 07/21/25 IN EPIC XRAY 01/20/25 IN EPIC XRAY 12/22/23 IN CHANGE EPIDURAL INJ ~01/2025 @SOFÍA JENSEN PT @[facility] - HASN'T STARTED CURRENTLY DOING PT FOR (R) HUMERUS FX ; HAS NOT STARTED PT FOR (R) HIP. HAS SWITCHED MATTRESS / CHAIR - ADMITS GREAT RELIEF. DENIES CURRENT DISCOMFORT. DENIES SWELLING. DENIES N/T. DENIES STIFFNESS. IS CAUTIOUS WITH WALKING D/T BALANCE ISSUES / LIMITATION WITH ROM WITH AMBULATION - HAS TO CONCENTRATE ON PICKING LEG UP TO WALK TO AVOID TRIPPING. DENIES WAKING HS. DENIES RECENT ICING / HEATING. TYL/ NAPROXEN PRN. NO TOPICALS. HX (L) SHOULDER FX 04/29/25 Hip Musculoskeletal Exam Gait Gait is normal. Inspection Leg length disparity: no discrepancy Right Erythema: none Ecchymosis: none Edema: none Deformity: none Previous incision: anterolateral Incision: well-healed Palpation Right Right hip palpation is normal. Increased warmth: none Tenderness: none Range of Motion Right Right hip range of motion is within functional limits. Active ROM: normal. Passive ROM: normal. Strength Right Right hip strength is normal. Extension: 5/5. Flexion: 5/5. Internal rotation: 5/5. External rotation: 5/5. Adduction: 5/5. Abduction: 5/5. Neurovascular Right Right hip neurovascular exam is normal. Pulses - PT: normal Posterior tibial: 2+ General Constitutional: appears stated age Labored breathing: no Psychiatric: normal mood and affect Neurological: alert and oriented x3 Skin: intact Lymphadenopathy: none No orders of the defined types were placed in this encounter. Procedures Results ICD-10-CM 1. Right hip pain M25.551 2. History of total hip replacement, right Z96.641 Assessment & Plan Status post right total hip arthroplasty Previously experienced discomfort in the lateral anterior hip and thigh region. Did not attend physical therapy due to rehabbing a left shoulder fracture, with the therapist focusing only on one area. Achieved complete symptom relief after changing mattress position and chair at home. Additionally,had lumbar spine injections since the last visit, resulting in being symptom-free in the right leg.Previous exam indicated possible nerve impingement, but currently has no pain on hip range of motion, good strength, and good mobility. Thankful that the pain is gone and will call if any symptoms develop. Treatment plan: No further treatment is required at this time as he is symptom- free. Advised to continue monitoring for any new symptoms and to call if they develop. Encouraged to continue with the healing process of his proximal humerus fracture. No additional concerns or questions were raised during the visit. PROCEDURE Procedure Performed Right total hip arthroplasty Questions answered in laymen terms at the bedside. The diagnosis, home exercise plan and any ongoing restrictions/ recommendations reviewed. If unable to be reached in office, I recommend evaluation at nearest Emergency Room if any symptoms worsened or new symptoms develop for requiring urgent evaluation. Visit was preformed using [employer]-airplane pilot supervisor speech recognition. documented in this encounterBarton County Memorial HospitalXndkqlxjem79-86-6477 History of Present illness Narrative* Saman Coleman DPM - 09/03/2025 1:15 PM EDT Images from the original note were not included. HPI: Patient states that the nails are especially painful with shoe gear and pressure. He states that they has no pain in the feet. There is pain related to the toenails, especially with shoe gear and pressure. They have difficulty with trimming the nails due to trouble reaching them and because of the thickness in the nail. Patient denies being diabetic. Patient has not problems with slow healing wounds or sores on the feet. Patient does not have burning, tingling and numbness in the feet. Patient's PCP is Umesh Aquino MD. Date of Last visit: 07/07/2025. No other pedal complaints at this time. Exam: General Examination: GENERAL APPEARANCE: awake, aware of surroundings, in no acute distress Vascular: DORSALIS PEDIS PULSE: 2/4, bilaterally POSTERIOR TIBIAL PULSE: 2/4, bilaterally TEMPERATURE GRADIENT: warm to cool EDEMA: none CAPILLARY FILLING TIME(sec): capillary fill intact bilateral digits less than 3 secs Neurologic: NEUROLOGIC: light touch is intact to the plantar foot Dermatologic: SKIN FINDINGS: normal HYPERKERATOSIS: plantar lateral left foot at the site of prominence from Charcot, distal ends of the toes NAIL PATHOLOGY: Nails 1-5 bilateral are intact. Incurvation noted to the medial, lateral border of the 1 - L nail. There is pain noted with pressure at the medial, lateralnail fold. Erythema and edema is not noted to the affected nail fold. Hypertrophy of the nail fold is present. No malodor or drainage is noted SKIN PATHOLOGY: texture, turgor, hair growth, within normal limits Nail Pathology: Left Foot: 1 (great toe): Long, Thick, Crumbly, Deformed, Discolored, Brittle, Dystrophic 2: Long, Thick, Crumbly, Deformed, Discolored, Brittle, Dystrophic 3: Long, Thick, Crumbly, Deformed, Discolored, Brittle, Dystrophic 4: Long, Thick, Crumbly, Deformed, Discolored, Brittle, Dystrophic 5: Long, Thick, Crumbly, Deformed, Discolored, Brittle, Dystrophic Nail Pathology: Right Foot: 1 (great toe): Long, Thick, Crumbly, Deformed, Discolored, Brittle, Dystrophic 2: Long, Thick, Crumbly, Deformed, Discolored, Brittle, Dystrophic 3: Long, Thick, Crumbly, Deformed, Discolored, Brittle, Dystrophic 4: Long, Thick, Crumbly, Deformed, Discolored, Brittle, Dystrophic 5: Long, Thick, Crumbly, Deformed, Discolored, Brittle, Dystrophic Orthopedic: FOOT MORPHOLOGY: normal JOINT RANGE OF MOTION: normal ankle and subtalar joint and 1st MPJ ROM bilateral DEFORMITIES: Charcot left foot, prominence to the plantar lateral left foot PAIN ELICITED WITH PALPATION OF: Overlying the site of ingrown toenail left hallux MUSCLE STRENGTH: 5/5 for all pedal groups tested Diabetic shoes and inserts: Date of diabetic foot exam: 09/03/25 Previous amputation of the foot were part of the foot: No History of previous ulceration of the foot: No History of pre-ulcerative callus of the foot: Yes Peripheral neuropathy with evidence of callus formation: Yes Foot deformity: Yes - charcot left foot Poor circulation: No Patient's DM shoes with inserts fit well to his feet without any areas of rubbing or pain. Assessments: ICD L60.0 - Ingrowing Nail ICD M79.672 - Pain in left foot ICD M79.671 - Pain in right foot Onychomycosis Type II diabetes with neuro complications Charcot left foot Callous bilateral foot Treatment Note: Diabetes, Onychomycosis: 1. Nails were debrided in length and thickness by manual and mechanical means. 2. Advised patient on continued proper diabetic foot care including daily monitoring of their feet for any new complaints or concerns that may arise. 3. Discussed importance of tight blood sugar control to prevent future complications. 4. RTC: 9-12 weeks or as needed if problems arise. documented in this encounterBarton County Memorial HospitalXympnpoawr13-99-0319 History of Present illness Narrative* Kai Lawrence DPM - 09/03/2025 11:15 AM EDT Images from the original note were not included. Subjective Patient ID: Robbin Bartlett is a 65 y.o. male who presents for Shoe pharmacy picking tech (Robbin Bartlett 65yo Established patient presents today for diabetic shoes pharmacy picking tech.[address] Gonzalez 3 custom inserts PCP: Quirino WRIGHT 06/19/25, A1C: 6.1, BS:). HPI Established patient returns to clinic for diabetic shoe pickup. Review of Systems Constitutional: Positive for activity [...] Chronic kidney disease (CKD), stage III (moderate) ([facility]) Constipation, chronic COVID-19 virus detected Depression Diabetes mellitus, type 2 ([facility]) Encounter for initial annual wellness visit (AWV) [...] mass index (BMI) of 40.0 to 49.9 ([facility]) Obesity (BMI 30-39.9) 10/23/2023 Osteoarthritis of hip Plantar fasciitis, left Pneumonia Pre-operative clearance 10/23/2023 Primary hypertension 10/23/2023 Spondylosis, cervical Swelling of left foot TIA (transient ischemic attack) Tinea cruris Tremor of right hand Type 2 diabetes mellitus with Charcot's joint of left foot ([facility]) Type 2 diabetes mellitus with peripheral neuropathy ([facility]) Varus foot deformity, acquired, left Vitamin B12 deficiency Vitamin deficiency Medications Current Outpatient Medications: atorvastatin (Lipitor) 40 MG tablet, Take 1 tablet (40 mg) by mouth in the evening, Disp: 90 tablet, Rfl: 0 B-D UF III MINI PEN NEEDLES 31G X 5 MM [facility], , Disp: , Rfl: chlorhexidine (Peridex) 0.12 [...] pm, Disp: 270 tablet, Rfl: 1 HYDROcodone-acetaminophen (Belfield) 5-325 MG tablet, Take 1 tablet by [...] BONE IMPLANT / 1975 HARDWARE REMOVAL / 2018 KNEE SCOPE TONSILLECTOMY TOTAL HIP ARTHROPLASTY Right 11/08/2023 DR SNELL Family History Family History Problem Relation Name Age of Onset Cancer Mother Uterine cancer Lupus Mother Mental illness Father Mental illness Sister Mental illness Brother Brother Schizophrenic Objective Physical Exam Constitutional: General: He is not in acute distress. Appearance: He is obese. Comments: Presents to clinic ambulating unassisted in [facility]. Cardiovascular: Comments: DP pulse: 1/4 PT [...] mellitus with neurological manifestations (HCC) E11.49 2. Corns and callosities L84 3. Hammer toes of both feet M20.41 M20.42 4. Charcot's joint of left foot M14.672 5. Equinus contracture of right ankle M24.571 6. Equinus contracture of left ankle M24.572 Patient presents for the dispensing of 1 pair of extra depth diabetic shoes and 3 pairs of custom molded orthotics. The shoes were applied and fit well. The inserts achieve total contact with the plantar surface of the patient's feet. The insoles are comfortable and appropriate for his foot type. Instructions were given in the rotation and changing of the insoles. Custom molded inserts are required to achieve and maintain total contact with the plantar aspect of the patient's foot for the life of the device and to prevent tissue damage in the setting of Charcot collapse and multiple hammertoedeformities bilaterally. Three pairs of inserts are utilized for him due to bottoming out and loss of protection after 4 months of wear. They were dated to assist him in this process. Patient is ableto apply the shoes independently. Walking in the shoes is comfortable and nonirritating. Patient was instructed in the break in period and return policy for the shoes and insoles. The PCS is on file and instructions given to call the office if questions or problems arise. The supplier standards regarding the DME given to patient. At the time of dispensing the shoes and insoles are suitable and not substandard. RTO 3 weeks to check shoes. A copy of patient records were reviewed and initialed by the PCP prior to the signing of the certifying statement. He was advised to wear the shoes at home for only one hour on the first day and to check his feet for any sores or irritations. This note was created with the assistance of a speech recognition program. While intending to generate a timely document that accurately reflects the content of the visit, no guarantee can be provided that every grammatical or spelling mistake has been or will be identified or corrected. Thank you for your understanding. Kai Lawrence DPM documented in this encounterBarton County Memorial HospitalAhbjjsvqez74-04-4707 History of Present illness Narrative* Kai Lawrence DPM - 07/30/2025 1:45 PM EDT Images from the original note were not included. Subjective Patient ID: Robbin Bartlett is a 65 y.o. male who presents for Diabetic Shoes (Established patient presents today to be measured for diabetic shoes. PCP: Quirino WRIGHT 06/19/25, A1C: 6.1, BS:). HPI Established patient returns to clinic for diabetic shoe measure. Review of Systems Constitutional: Positive for activity [...] Chronic kidney disease (CKD), stage III (moderate) ([facility]) Constipation, chronic COVID-19 virus detected Depression Diabetes mellitus, type 2 ([facility]) Encounter for initial annual wellness visit (AWV) [...] mass index (BMI) of 40.0 to 49.9 ([facility]) Obesity (BMI 30-39.9) 10/23/2023 Osteoarthritis of hip Plantar fasciitis, left Pneumonia Pre-operative clearance 10/23/2023 Primary hypertension 10/23/2023 Spondylosis, cervical Swelling of left foot TIA (transient ischemic attack) Tinea cruris Tremor of right hand Type 2 diabetes mellitus with Charcot's joint of left foot ([facility]) Type 2 diabetes mellitus with peripheral neuropathy ([facility]) Varus foot deformity, acquired, left Vitamin B12 deficiency Vitamin deficiency Medications Current Outpatient Medications: B-D UF III MINI PEN NEEDLES 31G X 5 MM [facility], , Disp: , Rfl: chlorhexidine (Peridex) 0.12 % solution, , Disp: , Rfl: etodolac (Lodine) 400 MG tablet, Take 400 mg by mouth 2 (two) times a day as needed, Disp: , Rfl: glyBURIDE (Diabeta) 5 MG tablet, 2 pills in the am, and 1 pill in the pm, Disp: 270 tablet, Rfl: 1 HYDROcodone-acetaminophen (Belfield) 5-325 MG tablet, Take 1 tablet by [...] 80 MG tablet, , Disp: , Rfl: sertraline (Zoloft) 100 MG tablet, Take 100 mg by mouth at bedtime, Disp: , Rfl: tiZANidine (Zanaflex) 4 MG tablet, TAKE 1 TABLET BY MOUTH AT BEDTIME NEEDED FOR MUSCLE SPASMS, Disp: 90 tablet, Rfl: 0 atorvastatin (Lipitor) 40 MG tablet, Take 1 tablet (40 mg) by mouth in the evening, Disp: 90 tablet, Rfl: 0 fexofenadine (Deb) 180 MG tablet, Take 1 [...] before bedtime., Disp: 270 capsule, Rfl: 1 losartan (Cozaar) 50 MG tablet, Take 1 [...] 28 days, Disp: 3 mL, Rfl: 2 Allergies Penicillins and Tetanus toxoid-containing vaccines Past Surgical History Past Surgical History: Procedure Laterality Date ADENOIDECTOMY APPENDECTOMY CARPAL TUNNEL RELEASE 7 surgeries CATARACT EXTRACTION CHOLECYSTECTOMY COLONOSCOPY COLONOSCOPY 08/02/2017 Normal FEMUR SURGERY Right [facility] OR CATARACT REMOVAL KNEE SURGERY Right 1974 BONE IMPLANT / 1975 HARDWARE REMOVAL / 2018 KNEE SCOPE TONSILLECTOMY TOTAL HIP ARTHROPLASTY Right 11/08/2023 DR STEPANIC Family History Family History Problem Relation Name Age of Onset Cancer Mother Uterine cancer Lupus Mother Mental illness Father Mental illness Sister Mental illness Brother Brother Schizophrenic Objective Physical Exam Constitutional: General: He is not in acute distress. Appearance: He is obese. Comments: Smells strongly of urine. Cardiovascular: Comments: DP pulse: 1/4 PT pulse: [...] mellitus with neurological manifestations (HCC) E11.49 2. Corns and callosities L84 3. Hammer toes of both feet M20.41 M20.42 4. Charcot's joint of left foot M14.672 5. Equinus contracture of right ankle M24.571 6. Hammer toe of right foot M20.41 7. Equinus contracture of left ankle M24.572 Patient was measured for diabetic shoes. Horsealot device was utilized and patient stood in a weightbearing position for accurate measurement. Measurements were recorded appropriately. Patient selected desired shoe style in color which was marked down on the appropriate paperwork. Diabetic shoes arerequired due to history of neuropathy, pre-ulcerative lesions as well as pedal deformities. The shoes are designed to reduce shear pressure across the foot and prevent pedal ulceration. Follow-up forshoe fitting and dispensing. Three-dimensional scanner was utilized to take impressions of bilateral feet utilizing the neutral suspension technique with plantar flexion of the 1st ray. After obtaining the scans they were assessed for accuracy and completeness and noted to be excellent. Appropriate order form was filled out and the order was sent to [facility]. This note was created with the assistance of a speech recognition program. While intending to generate a timely document that accurately reflects the content of the visit, no guarantee can be provided that every grammatical or spelling mistake has been or will be identified or corrected. Thank you for your understanding. Kai Lawrence DPM documented in this encounterBarton County Memorial [id number] History of Present illness Narrative* RANJIT Sheppard - 07/21/2025 2:30 PM EDT Orthopedic Office note: NAME: Robbin Bartlett : 1960 (EST PT) - RECHECK (R) HIP S/P (R) PATTI 11/08/23 (~1 YR 8 MONTHS) ; WORSENING BURNING DISCOMFORT ALONG INCISION SITE ~1 YR - NO RECENT INJURY RECENT (L) SHOULDER FX 04/29/25 XRAY TODAY, 07/21/25 IN EPIC XRAY 01/20/25 IN EPIC XRAY 12/22/23 IN CHANGE EPIDURAL INJ ~01/2025 @SOFÍA JENSEN HAS HAD DENTAL WORK A FEW TIMES WITHIN THE LAST YR WITHOUT ATB RX, DENTAL CLEANING 1 MONTH AGO (06/2025) WORSENING INTERMITTENT BURNING DISCOMFORT ALONG INCISION. SOME SWELLING AROUND INCISION. ADMITS N/T. DENIES WEAKNESS. DENIES STIFFNESS. GOOD ROM. WAKING HS. ICING PRN - WITH RELIEF. OXYCODONE PRN. IBU PRN. NO TOPICALS. Hip Musculoskeletal Exam Gait Gait is normal. Inspection Leg length disparity: no discrepancy Right Erythema: none Ecchymosis: none Edema: none Deformity: none Previous incision: anterolateral Incision: well-healed Palpation Right Right hip palpation is normal. Increased warmth: none Tenderness: present Greater trochanteric region pain: mild Greater trochanteric region pain comment: Pt has light touch sensitvity along lateral IT band. Pubic rami pain: none Lower lumbar region pain: mild Range of Motion Right Right hip range of motion is within functional limits. Active ROM: normal. Passive ROM: normal. Active extension: 30. Passive extension: 30. Active flexion: 120. Passive flexion: 120. Active internal rotation: 35. Passive internal rotation: 35. Active external rotation: 40. Passive external rotation: 40. Active adduction: 25. Passive adduction: 25. Active abduction: 40. Passive abduction: 40. Strength Right Right hip strength is normal. Extension: 5/5. Flexion: 5/5. Internal rotation: 5/5. External rotation: 5/5. Adduction: 5/5. Abduction: 5/5. Strength additional comments: Clayton to stand on one leg independently without pain. Neurovascular Right Right hip neurovascular exam is normal. Pulses - PT: normal Posterior tibial: 2+ Special Tests Right Log roll test: negative Left Log roll test: negative Special tests additional comments: No evidence of foot drop. General Constitutional: appears stated age Labored breathing: no Psychiatric: normal mood and affect Neurological: alert and oriented x3 Skin: intact Lymphadenopathy: none Orders Placed This Encounter Procedures XR hip right 2 or 3 views Reason for exam:: Pain Ambulatory referral to Physical Therapy Standing Status: Future Expected Date: 07/21/2025 Expiration Date: 01/18/2026 Referral Priority: Routine Referral Type: Consultation Referral Reason: Specialty Services Required Referral Location: [facility] Scheduling Requested Specialty: Physical Therapy Number of Visits Requested: 1 Procedures Results - Imaging: - X-rays of the hip show no evidence of fracture ICD-10-CM 1. Right hip pain M25.551 XR hip right 2 or 3 views Ambulatory referral to Physical Therapy 2. History of total hip replacement, right Z96.641 CANCELED: XR hip right 2 or 3 views Assessment & Plan Right lateral hip pain Burning and sensitivity are noted along the lateral aspect of the thigh down to the mid distal thigh, but not quite to the knee. Structures in this location were discussed, including possible IT band-related issues versus meralgia paresthetica or lumbar radiculopathy. Epidural steroid injections are administered every 3 months for low back pain. Multiple falls occur at least twice a month, but major injury is avoided. X-rays show no evidence of fracture. Tight belts are not worn, and recent weight loss makes meralgia paresthetica less likely. No additional concerns or questions are expressed.Absence of fever makes infection less likely. Symptoms are well localized to a dermatome on the lateral aspect of the thigh. Treatment plan: Therapy with potential modalities is recommended. Ice provides symptom relief and will be continued as a conservative measure. If symptoms persist, a pain management referral for possible diagnostic and therapeutic injections may be considered. PROCEDURE Procedure Performed Epidural steroid injections administered every 3 months for low back pain. Questions answered in laymen terms at the bedside. The diagnosis, home exercise plan and any ongoing restrictions/ recommendations reviewed. If unable to be reached in office, I recommend evaluation at nearest Emergency Room if any symptoms worsened or new symptoms develop for requiring urgent evaluation. Visit was preformed using [employer] supervisor speech recognition. documented in this encounterBarton County Memorial [id number] History of Present illness Narrative* Kai Lawrence, DPM - 06/30/2025 2:00 PM EDT Images from the original note were not included. Subjective Patient ID: Robbin Bartlett is a 65 y.o. male who presents for Start Diabetic shoe process (Robbin Bartlett 65yo New Patient referred from Dr. Shi Coleman to start the diabetic shoe process. BS 48 A1C 6.1NP Quirino Wu 06/19/2025 ). HPI This is a new patient of the practice who presents to clinic via referral for diabetic shoes and inserts. Patient has a history of Charcot neuroarthropathy on the left lower extremity. He denies history of ulceration or amputations. He sees Dr. Coleman for regular diabetic foot evaluations. Review of Systems Constitutional: Positive for activity [...] Chronic kidney disease (CKD), stage III (moderate) ([facility] [place]) Constipation, chronic COVID-19 virus detected Depression Diabetes mellitus, type 2 ([facility]) Encounter for initial annual wellness visit (AWV) [...] mass index (BMI) of 40.0 to 49.9 ([facility] [place]) Obesity (BMI 30-39.9) 10/23/2023 Osteoarthritis of hip Plantar fasciitis, left Pneumonia Pre-operative clearance 10/23/2023 Primary hypertension 10/23/2023 Spondylosis, cervical Swelling of left foot TIA (transient ischemic attack) Tinea cruris Tremor of right hand Type 2 diabetes mellitus with Charcot's joint of left foot ([facility]) Type 2 diabetes mellitus with peripheral neuropathy ([facility]) Varus foot deformity, acquired, left Vitamin B12 deficiency Vitamin deficiency Medications Current Outpatient Medications: atorvastatin (Lipitor) 40 MG tablet, Take 1 tablet (40 mg) by mouth in the evening, Disp: 90 tablet, Rfl: 0 B-D UF III MINI PEN NEEDLES 31G X 5 MM [facility], , Disp: , Rfl: chlorhexidine (Peridex) 0.12 % solution, RINSE WITH 1/2 OUNCE TWICE A DAY AFTER BREAKFAST AND BEFORE BEDTIME *SPIT OUT DO NOT SWALLOW*, Disp: , Rfl: etodolac (Lodine) 400 MG tablet, Take 400 mg by mouth 2 (two) times a day as needed (Patient not taking: Reported on 10/16/2024), Disp: , Rfl: fexofenadine (Deb) 180 MG [...] pm, Disp: 270 tablet, Rfl: 1 HYDROcodone-acetaminophen ([place]) 5-325 MG tablet, Take 1 tablet by mouth every 6 (six) hours if needed, Disp: , Rfl: ibuprofen 600 MG tablet, TAKE 1 TABLET (600 MG) BY MOUTH EVERY 12 (TWELVE) HOURS IF NEEDED FOR MODERATE PAIN (Patient not taking: Reported on 10/16/2024), Disp: , Rfl: insulin lispro protamine-insulin lispro (HumaLOG MIX 75/25 KWIKPEN) (75-25) 100 UNIT/ML injection, INJECT 53 UNITS SUBCUTANEOUSLY ONCE DAILY, Disp: 18 each, Rfl: 1 lamoTRIgine (LaMICtal) 100 MG tablet, Take 1 tablet by mouth at bedtime, Disp: , Rfl: lamoTRIgine (LaMICtal) 150 MG tablet, Take 2 tablets by mouth in the morning., Disp: , Rfl: Latuda 20 MG tablet, TAKE 1 TABLET BY MOUTH ONCE DAILY (TAKE IN ADDITION TO 80MG TABLET TO EQUAL 100MG), Disp: , Rfl: Latuda 80 MG tablet, TAKE 1 TABLET BY MOUTH ONCE DAILY WITH FOOD (ATLEAST 350 CALORIES), Disp: , Rfl: losartan (Cozaar) 50 MG [...] tablet, Rfl: 0 Allergies Penicillins and Tetanus toxoids Past Surgical History Past Surgical History: Procedure Laterality Date ADENOIDECTOMY APPENDECTOMY CARPAL TUNNEL RELEASE 7 surgeries CATARACT EXTRACTION CHOLECYSTECTOMY COLONOSCOPY COLONOSCOPY 08/02/2017 Normal FEMUR SURGERY Right HC OR CATARACT REMOVAL KNEE SURGERY Right 1974 BONE IMPLANT / 1976 HARDWARE REMOVAL / 2018 KNEE SCOPE TONSILLECTOMY TOTAL HIP ARTHROPLASTY Right 11/08/2023 DR SNELL Family History Family History Problem Relation Name Age of Onset Cancer Mother Uterine cancer Lupus Mother Mental illness Father Mental illness Sister Mental illness Brother Brother Schizophrenic Objective Physical Exam Constitutional: General: He is not in acute distress. Appearance: He is obese. Cardiovascular: Comments: DP pulse: 1/4 PT pulse: [...] normal. Behavior: Behavior normal. Assessment/Plan ICD-10-CM 1. Charcot's joint of left foot M14.672 2. Type II diabetes mellitus with neurological manifestations (HCC) E11.49 Ambulatory referral to Podiatry 3. Corns and callosities L84 Ambulatory referral to Podiatry 4. Hammer toes of both feet M20.41 Ambulatory referral to Podiatry M20.42 5. Equinus contracture of left ankle M24.572 6. Equinus contracture of right ankle M24.571 Diabetic foot evaluation performed. Patient is high-risk for pedal complications on the left lower extremity due to Charcot neuroarthropathy and significant loss of protective sensation. He has no ulcerative lesions currently. Patient is an excellent candidate for diabetic shoes due to pedal deformities as well as significant neuropathy and Charcot neuroarthropathy on the left lower extremity. Diabetic shoes may help to reduce the risk of ulceration going forward. We will complete the diabetic shoe paperwork and when we receive the paperwork back from the patient's primary care physician we will have the patient return for diabetic shoe measuring. He will require custom diabetic insoles dueto the Charcot collapse on the left lower extremity and the hammertoe contractures on the right lower extremity. Custom orthotics will provide greater offloading than oofc-fqn-[id number] insoles. This note was created with the assistance of a speech recognition program. While intending to generate a timely document that accurately reflects the content of the visit, no guarantee can be provided that every grammatical or spelling mistake has been or will be identified or corrected. Thank you for your understanding. Kai Lawrence DPM documented in this [facility]08-13-2025 Evaluation note* Diagnosis Onset Date Resolution Status Admit Date Fracture of proximal end of left humerus acuteAugust 2024 2:29pmFracture of proximal end of left humerusacute July 23, 2025 9:16amDegenerative disc disease, lumbarchronicSeptember 2024 11:26amDiabetic nephropathy associated with type 2 diabetes mellitus chronicSeptember 2024 11:26amFacet arthropathy, lumbarchronicSeptember 2024 11:26amLumbosacral radiculopathychronicSeptember 2024 11:26am MyalgiachronicSeptember 2024 11:26amFracture of proximal end of left humerusacuteOctober 2024 10:02amOther nondisplaced fracture of upper end of left humerus, subsequent encounacuteOctober 2024 10:02amPre-op exam acuteOctober 2024 10:02am [facility] Work Phone: 1(240) 168-591608-07-2025 NotePatient Education Gastroenterology Constipation, Adult Constipation is when a person has trouble pooping (having a bowel movement). When you have this condition, you may poop fewer than 3 times a week. Your poop (stool) may also be dry, hard, or bigger than normal. Follow these instructions at home: Eating and drinking ??? Eat foods that have a lot of fiber, such as: ? Fresh fruits and vegetables. ? Whole grains. ? Beans. ??? Eat less of foods that are low in fiber and high in fat and sugar, such as: ? Sinhala fries. ? Hamburgers. ? Cookies. ? Candy. ? Soda. ??? Drink enough fluid to keep your pee (urine) pale yellow. General instructions ??? Exercise regularly or as told by your doctor. Try to do 150 minutes of exercise each week. ??? Go to the restroom when you feel like you need to poop. Do not hold it in. ??? Take woyx-iml-zlyddgg and prescription medicines only as told by your doctor. These include anyfiber supplements. ??? When you poop: ? Do deep breathing while relaxing your lower belly (abdomen). ? Relax your pelvic floor. The pelvic floor is a group of muscles that support the rectum, bladder,and intestines (as well as the uterus in women). ??? Watch your condition for any changes. Tell your doctor if you notice any. ??? Keep all follow-up visits as told by your doctor. This is important. Contact a doctor if: ??? You have pain that gets worse. ??? You have a fever. ??? You have not pooped for 4 days. ??? You vomit. ??? You are not hungry. ??? You lose weight. ??? You are bleeding from the opening of the butt (anus). ??? You have thin, pencil-like poop. Get help right away if: ??? You have a fever, and your symptoms suddenly get worse. ??? You leak poop or have blood in your poop. ??? Your belly feels hard or bigger than normal (bloated). ??? You have very bad belly pain. ??? You feel dizzy or you faint. Summary ??? Constipation is when a person poops fewer than 3 times a week, has trouble pooping, or has poopthat is dry, hard, or bigger than normal. ??? Eat foods that have a lot of fiber. ??? Drink enough fluid to keep your pee (urine) pale yellow. ??? Take cnro-fdd-puiwnei and prescription medicines only as told by your doctor. These include anyfiber supplements. This information is not intended to replace advice given to you by your health care provider. Make sure you discuss any questions you have with your health care provider. Document Revised: 09/13/2023 Document Reviewed: 09/13/2023 Elsevier Patient Education ? 2023 [employer] 06-04-2025 Evaluation note* Diagnosis Onset Date Resolution Status Admit Date Fracture of proximal end of left humerus acuteJuly 2024 1:32pmFracture of proximal end of left humerusacuteAugust 2024 2:29pmFracture of proximal end of left humerusacuteSeptember 2024 9:16am [facility] Work Phone: 1(751) 402-717107-23-2025 Evaluation note* Diagnosis Onset Date Resolution Status Admit Date Fracture of proximal end of left humerus acuteJuly 2024 1:32pmFracture of proximal end of left humerusacuteAugust 2024 2:29pmFracture of proximal end of left humerusacuteSeptember 2024 9:16amDegenerative disc disease, lumbarchronicSeptember 2024 11:26am Diabetic nephropathy associated with type 2 diabetes mellituschronicSeptember 2024 11:26amFacet arthropathy, lumbarchronicSept2024 11:26am Lumbosacral radiculopathychronicSept2024 11:26amMyalgiachronic Debby 2024 11:26am [facility] Work Phone: 1(180) 284-266807-21-2025 History of Present illness Narrative* Saman Coleman DPM - 06/02/2025 1:15 PM EDT HPI: Patient states that the nails are especially painful with shoe gear and pressure. He states that they has no pain in the feet. There is pain related to the toenails, especially with shoe gear and pressure. They have difficulty with trimming the nails due to trouble reaching them and because of the thickness in the nail. Patient denies being diabetic. Patient has not problems with slow healing wounds or sores on the feet. Patient does not have burning, tingling and numbness in the feet. Patient's PCP is Umesh Aquino MD. Date of Last visit: 12/18/2024. No other pedal complaints at this time. Exam: General Examination: GENERAL APPEARANCE: awake, aware of surroundings, in no acute distress Vascular: DORSALIS PEDIS PULSE: 2/4, bilaterally POSTERIOR TIBIAL PULSE: 2/4, bilaterally TEMPERATURE GRADIENT: warm to cool EDEMA: none CAPILLARY FILLING TIME(sec): capillary fill intact bilateral digits less than 3 secs Neurologic: NEUROLOGIC: light touch is intact to the plantar foot Dermatologic: SKIN FINDINGS: normal HYPERKERATOSIS: plantar lateral left foot at the site of prominence from Charcot, distal ends of the toes NAIL PATHOLOGY: Nails 1-5 bilateral are intact. Incurvation noted to the medial, lateral border of the 1 - L nail. There is pain noted with pressure at the medial, lateralnail fold. Erythema and edema is not noted to the affected nail fold. Hypertrophy of the nail fold is present. No malodor or drainage is noted SKIN PATHOLOGY: texture, turgor, hair growth, within normal limits Nail Pathology: Left Foot: 1 (great toe): Long, Thick, Crumbly, Deformed, Discolored, Brittle, Dystrophic 2: Long, Thick, Crumbly, Deformed, Discolored, Brittle, Dystrophic 3: Long, Thick, Crumbly, Deformed, Discolored, Brittle, Dystrophic 4: Long, Thick, Crumbly, Deformed, Discolored, Brittle, Dystrophic 5: Long, Thick, Crumbly, Deformed, Discolored, Brittle, Dystrophic Nail Pathology: Right Foot: 1 (great toe): Long, Thick, Crumbly, Deformed, Discolored, Brittle, Dystrophic 2: Long, Thick, Crumbly, Deformed, Discolored, Brittle, Dystrophic 3: Long, Thick, Crumbly, Deformed, Discolored, Brittle, Dystrophic 4: Long, Thick, Crumbly, Deformed, Discolored, Brittle, Dystrophic 5: Long, Thick, Crumbly, Deformed, Discolored, Brittle, Dystrophic Orthopedic: FOOT MORPHOLOGY: normal JOINT RANGE OF MOTION: normal ankle and subtalar joint and 1st MPJ ROM bilateral DEFORMITIES: Charcot left foot, prominence to the plantar lateral left foot PAIN ELICITED WITH PALPATION OF: Overlying the site of ingrown toenail left hallux MUSCLE STRENGTH: 5/5 for all pedal groups tested Diabetic shoes and inserts: Date of diabetic foot exam: 05/26/25 Previous amputation of the foot were part of the foot: No History of previous ulceration of the foot: No History of pre-ulcerative callus of the foot: Yes Peripheral neuropathy with evidence of callus formation: Yes Foot deformity: Yes - charcot left foot Poor circulation: No Patient's DM shoes with inserts fit well to his feet without any areas of rubbing or pain. Assessments: ICD L60.0 - Ingrowing Nail ICD M79.672 - Pain in left foot ICD M79.671 - Pain in right foot Onychomycosis Type II diabetes with neuro complications Charcot left foot Callous bilateral foot Treatment Note: Diabetes, Onychomycosis: 1. Nails were debrided in length and thickness by manual and mechanical means. 2. Advised patient on continued proper diabetic foot care including daily monitoring of their feet for any new complaints or concerns that may arise. 3. Discussed importance of tight blood sugar control to prevent future complications. 4. RTC: 9-12 weeks or as needed if problems arise. Callous: 1. Hyperkeratosis/porokeratosis as above noted was debrided. 2. Instructed patient on use of aperture pads or Silipos padding/toe spacers to prevent rubbing andcontinued development of the hyperkeratosis. 3. Also discussed use of moisturizing creams for overall increased hydration to the skin. 4. Discussed continued use of proper foot gear to avoid excess pressure over the callous site. Diabetes: 1. A Diabetic Foot Screening Exam was performed and the patient was educated on the foot complications related to Diabetes. Instructed to contact our office if any foot problems develop before next visit. 2. Patient was instructed on the continued importance of diabetic foot care along with proper diet and keeping their blood sugar under control to prevent complications. 3. Patient would like to proceed with extra depth diabetic shoes and insoles. We discussed the needed paperwork from their PCP in order to proceed with ordering these if they would like to obtain them. The patient fits the criteria for shoes and inserts based upon diabetes, charcot, hammertoes, neuropathy. Referral was placed for the patient to go to [facility] in [place] for their DM shoes and inserts. 4. Patient will be contacted for appointment information once pre-certification has been completed if required. documented in this encounterBarton County Memorial [id number] Evaluation note* Diagnosis Onset Date Resolution Status Admit Date Anemia acuteJune 2024 1:12pmChronic kidney disease, stage II (mild)acuteJune 2024 1:12pmDiabetic nephropathy associated with type 2 diabetes mellitusacute April 15, 2025 1:12pmHypertensive nephropathyacuteJune 2024 1:12pmFracture of proximal end of left humerusacuteJuly 2024 1:32pm [facility] Work Phone: 1(269) 169-615306-03-2025 Evaluation note* Diagnosis Onset Date Resolution Status Admit Date Anemia acuteJune 2024 1:12pmChronic kidney disease, stage II (mild)acuteJune 2024 1:12pmDiabetic nephropathy associated with type 2 diabetes mellitusacute April 15, 2025 1:12pmHypertensive nephropathyacuteJune 2024 1:12pmFracture of proximal end of left humerusacuteJuly 2024 1:32pmFracture of proximal end of left humerusacuteAugust 2024 2:29pm [facility] Work Phone: 1(997) 979-147105-15-2025 History of Present illness Narrative* Saman Coleman DPM - 03/27/2025 11:30 AM EDT Images from the original note were not included. HPI: Patient states that the nails are especially painful with shoe gear and pressure. He states that they has no pain in the feet. There is pain related to the toenails, especially with shoe gear and pressure. They have difficulty with trimming the nails due to trouble reaching them and because of the thickness in the nail. Patient denies being diabetic. Patient has not problems with slow healing wounds or sores on the feet. Patient does not have burning, tingling and numbness in the feet. Patient's PCP is Umesh Aquino MD. Date of Last visit: 10/17/2024. No other pedal complaints at this time. Exam: General Examination: GENERAL APPEARANCE: awake, aware of surroundings, in no acute distress Vascular: DORSALIS PEDIS PULSE: 2/4, bilaterally POSTERIOR TIBIAL PULSE: 2/4, bilaterally TEMPERATURE GRADIENT: warm to cool EDEMA: none CAPILLARY FILLING TIME(sec): capillary fill intact bilateral digits less than 3 secs Neurologic: NEUROLOGIC: light touch is intact to the plantar foot Dermatologic: SKIN FINDINGS: normal HYPERKERATOSIS: plantar lateral left foot at the site of prominence from Charcot, distal ends of the toes NAIL PATHOLOGY: Nails 1-5 bilateral are intact. Incurvation noted to the medial, lateral border of the 1 - L nail. There is pain noted with pressure at the medial, lateralnail fold. Erythema and edema is not noted to the affected nail fold. Hypertrophy of the nail fold is present. No malodor or drainage is noted SKIN PATHOLOGY: texture, turgor, hair growth, within normal limits Nail Pathology: Left Foot: 1 (great toe): Long, Thick, Crumbly, Deformed, Discolored, Brittle, Dystrophic 2: Long, Thick, Crumbly, Deformed, Discolored, Brittle, Dystrophic 3: Long, Thick, Crumbly, Deformed, Discolored, Brittle, Dystrophic 4: Long, Thick, Crumbly, Deformed, Discolored, Brittle, Dystrophic 5: Long, Thick, Crumbly, Deformed, Discolored, Brittle, Dystrophic Nail Pathology: Right Foot: 1 (great toe): Long, Thick, Crumbly, Deformed, Discolored, Brittle, Dystrophic 2: Long, Thick, Crumbly, Deformed, Discolored, Brittle, Dystrophic 3: Long, Thick, Crumbly, Deformed, Discolored, Brittle, Dystrophic 4: Long, Thick, Crumbly, Deformed, Discolored, Brittle, Dystrophic 5: Long, Thick, Crumbly, Deformed, Discolored, Brittle, Dystrophic Orthopedic: FOOT MORPHOLOGY: normal JOINT RANGE OF MOTION: normal ankle and subtalar joint and 1st MPJ ROM bilateral DEFORMITIES: Charcot left foot, prominence to the plantar lateral left foot PAIN ELICITED WITH PALPATION OF: Overlying the site of ingrown toenail left hallux MUSCLE STRENGTH: 5/5 for all pedal groups tested Diabetic shoes and inserts: Date of diabetic foot exam: 03/27/25 Previous amputation of the foot were part of the foot: No History of previous ulceration of the foot: No History of pre-ulcerative callus of the foot: Yes Peripheral neuropathy with evidence of callus formation: Yes Foot deformity: Yes - charcot left foot Poor circulation: No Patient's DM shoes with inserts fit well to his feet without any areas of rubbing or pain. Assessments: ICD L60.0 - Ingrowing Nail ICD M79.672 - Pain in left foot ICD M79.671 - Pain in right foot Onychomycosis Type II diabetes with neuro complications Charcot left foot Callous bilateral foot Treatment Note: Diabetes, Onychomycosis: 1. Nails were debrided in length and thickness by manual and mechanical means. 2. Advised patient on continued proper diabetic foot care including daily monitoring of their feet for any new complaints or concerns that may arise. 3. Discussed importance of tight blood sugar control to prevent future complications. 4. RTC: 9-12 weeks or as needed if problems arise. Callous: 1. Hyperkeratosis/porokeratosis as above noted was debrided. 2. Instructed patient on use of aperture pads or Silipos padding/toe spacers to prevent rubbing andcontinued development of the hyperkeratosis. 3. Also discussed use of moisturizing creams for overall increased hydration to the skin. 4. Discussed continued use of proper foot gear to avoid excess pressure over the callous site. Hammertoe: 1. Discussed with patient the findings of the examination and further options for treatment including conservative and surgical treatment of the deformities. 2. Specifically discussed with the patient conservative treatment including shoe gear modification,stretching of the shoes, corrective splinting which may alleviate some tenderness but does not provide long-term correction of the deformity and padding with silpos vs. use of crest pads for splinting. 3. Briefly discussed with the patient the surgical options for correction of the deformity including hammertoe arthrodesis vs, arthroplasty and addressing the deformity at the MPJ if applicable and the associated surgical procedure, complications and recovery time. documented in this encounterBarton County Memorial [id number] Radiology Diagnostic study [facility] [place] [address] [place] [address] Ultrasound Report Signed Patient: Robbin Bartlett MR#: [id number] : 1960 Acct:[id number] Age/Sex: 64 / M ADM Date: 5 Loc: Room: Type: [facility] Attending Dr: Elia Magallanes MD Ordering Provider: Elia Magallanes MD Date of Service: 02/20/25 US/US renal BI: E11.21 - Type 2 diabetes mellitus with diabetic nephropathy Copies to: Elia Magallanes MD~ BILATERAL RENAL AND BLADDER ULTRASOUND CLINICAL HISTORY: Stage IIIB chronic kidney disease. COMPARISON: None FINDINGS: Estimation of renal size is approximately 12.71 cm on the right and 12.66 cm onthe left. 12 mm stone left kidney. No hydronephrosis of either kidney. The urinary bladder is partially distended with avolume of 105.57 ml. No shadowing stone or focal lesion. US/US renal BI IMPRESSION: 12 MM NONOBSTRUCTING STONE LEFT KIDNEY. NO HYDRONEPHROSIS. Impression dictated by: Dimitri Richmond Jr., D.O.02/20/2025 8:59 AM Dictation Location: [place] [address] Tech: Kathleen Blackmon Transcribed By: HELEN 02/20/25858 Dictated By: Dimitri Richmond Jr, DO 02/20/25858 Signed By: 02/20/2559 [facility]04-01-2025 History of Present illness Narrative * Temi Meyers DO - 02/11/2025 12:30 PM EDTAssociated Order(s): Nerve Block Pre-Procedure Diagnose(s): Lumbar radiculopathy; Lumbosacral radiculopathy Post-Procedure Diagnose(s): Lumbar radiculopathy; Lumbosacral radiculopathy Images from the original note were not included. Reason for Appointment: Epidural Patient ID: Robbin Bartlett is a 64 y.o. male who presents for lumbar radiculopathy. Current Medications: has a current medication list which includes the following prescription(s): atorvastatin, b-d uf iii mini pen needles, chlorhexidine, etodolac, fexofenadine, furosemide, gabapentin, glyburide, hydrocodone- acetaminophen, ibuprofen, insulin lispro protamine-insulin lispro, lamotrigine, lamotrigine, latuda, latuda, losartan, metformin, pioglitazone, ozempic (0.25 or 0.5 mg/dose), sertraline, and tizanidine. Vitals: Visit Vitals BP 114/62 Pulse 84 SpO2 97% Smoking Status Former Allergies: Allergies Allergen Reactions Penicillins Hives and Swelling Tetanus Toxoids Hives and Swelling EPIDURAL NOTE: Bilateral L4 Epidural Injection Fluoroscopic needle guidance REASON FOR PROCEDURE: Lumbar radiculopathy and radicular pain ALLERGIES: See allergy list above. Patient specifically denies contrast and shellfish allergy. MEDICATIONS INJECTED: 1ml of 0.25% Bupivacaine mixed with Dexamethasone (10mg/ml) 10mg total. LOCAL ANESTHETIC INJECTED: None CONTRAST: Omnipaque 300mgI/mL, 1 mL per each procedure site SEDATION MEDICATIONS: None TOPICAL ANESTHETIC: Ethyl Chloride spray ESTIMATED BLOOD LOSS: None COMPLICATIONS: None TECHNIQUE: If applicable, blood thinning medications were held according to SIS and KELLEN guidelines. Time-out was taken to identify the correct patient, procedure, and side prior to starting the procedure. Lying in a prone position, the patient was prepped in the usual aseptic fashion. The appropriate site was identified under fluoroscopy. A 22 gauge needle was then introduced and the Right L4 foramen was negotiated under direct intermittent fluoroscopy. Lateral view was obtained to confirm needle placement and depth. Negative aspiration confirmed no blood and no CSF return. In the AP view 1 ml of Omnipaque 300mgI/mL contrast was injected and showed a good spread of the dye along the corresp onding nerve root and through the foramen into the axillary recess of the epidural space without any vascular uptake. Then the 0.5ml of 0.25% Bupivacaine mixed with 0.5ml of Dexamethasone 10mg/ml wasinjected without adverse effect. The next appropriate site was identified under fluoroscopy. A 22 gauge needle was then introduced and the Left L4 foramen was negotiated under direct intermittent fluoroscopy. Lateral view was obtained to confirm needle placement and depth. Negative aspiration confirmed no blood and no CSF return. In the AP view 1 ml of Omnipaque 300mgI/mL contrast was injected and showed a good spread of the dyealong the corresponding nerve root and through the foramen into the axillary recess of the epiduralspace without any vascular uptake. Then the 0.5ml of 0.25% Bupivacaine mixed with 0.5ml of Dexamethasone 10mg/ml was injected without adverse effect. The procedure was completed without complications and was tolerated well. The patient was monitoredafter the procedure. The patient (or responsible republican) was given post-procedure and discharge instructions to follow at home. The patient was discharged in stable condition. A follow-up appointment was made. The patient was instructed to avoid activities that would normally worsen the pain. Pre-procedure pain score: 6 /10 Chainsaw Mechanic: RT Alta(R) kVp: 103 Time (sec): 20 mA: 3.0 Patient ID: Robbin Bartlett is a 64 y.o. male. Nerve Block Date/Time: 02/11/2025 3:55 PM Performed by: Temi Meyers DO Authorized by: Lluvia Woodward NP Consent: Consent obtained: Written Consent given by: Patient [place] protocol: Procedure explained and questions answered to patient or proxy's satisfaction: yes Patient identity confirmed: Verbally with patient Location: Body area: Trunk Trunk nerve: Lumbar Procedure details: Guidance: fluoroscopy Steroid injected: Dexamethasone Post-procedure details: Procedure completion: Tolerated documented in this encounterBarton County Memorial [id number] History of Present illness Narrative* Saman Coleman DPM - 12/26/2024 1:00 PM EST Images from the original note were not included. HPI: Patient states that the nails are especially painful with shoe gear and pressure. He states that they has no pain in the feet. There is pain related to the toenails, especially with shoe gear and pressure. They have difficulty with trimming the nails due to trouble reaching them and because of the thickness in the nail. Patient denies being diabetic. Patient has not problems with slow healing wounds or sores on the feet. Patient does not have burning, tingling and numbness in the feet. Patient's PCP is Umesh Aquino MD. Date of Last visit: 10/17/2024. No other pedal complaints at this time. Exam: General Examination: GENERAL APPEARANCE: awake, aware of surroundings, in no acute distress Vascular: DORSALIS PEDIS PULSE: 2/4, bilaterally POSTERIOR TIBIAL PULSE: 2/4, bilaterally TEMPERATURE GRADIENT: warm to cool EDEMA: none CAPILLARY FILLING TIME(sec): capillary fill intact bilateral digits less than 3 secs Neurologic: NEUROLOGIC: light touch is intact to the plantar foot Dermatologic: SKIN FINDINGS: normal HYPERKERATOSIS: plantar lateral left foot at the site of prominence from Charcot, distal ends of the toes NAIL PATHOLOGY: Nails 1-5 bilateral are intact. Incurvation noted to the medial, lateral border of the 1 - L nail. There is pain noted with pressure at the medial, lateralnail fold. Erythema and edema is not noted to the affected nail fold. Hypertrophy of the nail fold is present. No malodor or drainage is noted SKIN PATHOLOGY: texture, turgor, hair growth, within normal limits Nail Pathology: Left Foot: 1 (great toe): Long, Thick, Crumbly, Deformed, Discolored, Brittle, Dystrophic 2: Long, Thick, Crumbly, Deformed, Discolored, Brittle, Dystrophic 3: Long, Thick, Crumbly, Deformed, Discolored, Brittle, Dystrophic 4: Long, Thick, Crumbly, Deformed, Discolored, Brittle, Dystrophic 5: Long, Thick, Crumbly, Deformed, Discolored, Brittle, Dystrophic Nail Pathology: Right Foot: 1 (great toe): Long, Thick, Crumbly, Deformed, Discolored, Brittle, Dystrophic 2: Long, Thick, Crumbly, Deformed, Discolored, Brittle, Dystrophic 3: Long, Thick, Crumbly, Deformed, Discolored, Brittle, Dystrophic 4: Long, Thick, Crumbly, Deformed, Discolored, Brittle, Dystrophic 5: Long, Thick, Crumbly, Deformed, Discolored, Brittle, Dystrophic Orthopedic: FOOT MORPHOLOGY: normal JOINT RANGE OF MOTION: normal ankle and subtalar joint and 1st MPJ ROM bilateral DEFORMITIES: Charcot left foot, prominence to the plantar lateral left foot PAIN ELICITED WITH PALPATION OF: Overlying the site of ingrown toenail left hallux MUSCLE STRENGTH: 5/5 for all pedal groups tested Diabetic shoes and inserts: Date of diabetic foot exam: 12/26/24 Previous amputation of the foot were part of the foot: No History of previous ulceration of the foot: No History of pre-ulcerative callus of the foot: Yes Peripheral neuropathy with evidence of callus formation: Yes Foot deformity: Yes - charcot left foot Poor circulation: No Patient's DM shoes with inserts fit well to his feet without any areas of rubbing or pain. Assessments: ICD L60.0 - Ingrowing Nail ICD M79.672 - Pain in left foot ICD M79.671 - Pain in right foot Onychomycosis Type II diabetes with neuro complications Charcot left foot Callous bilateral foot Treatment Note: Diabetes, Onychomycosis: 1. Nails were debrided in length and thickness by manual and mechanical means. 2. Advised patient on continued proper diabetic foot care including daily monitoring of their feet for any new complaints or concerns that may arise. 3. Discussed importance of tight blood sugar control to prevent future complications. 4. RTC: 9-12 weeks or as needed if problems arise. Callous: 1. Hyperkeratosis/porokeratosis as above noted was debrided. 2. Instructed patient on use of aperture pads or Silipos padding/toe spacers to prevent rubbing andcontinued development of the hyperkeratosis. 3. Also discussed use of moisturizing creams for overall increased hydration to the skin. 4. Discussed continued use of proper foot gear to avoid excess pressure over the callous site. documented in this encounterBarton County Memorial [id number] NotePatient Education Cardiovascular Hypertension, Adult Hypertension is another name for high blood pressure. High blood pressure forces your heart to workharder to pump blood. This can cause problems over time. There are two numbers in a blood pressure reading. There is a top number (systolic) over a bottom number (diastolic). It is best to have a blood pressure that is below 120/80. What are the causes? The cause of this condition is not known. Some other conditions can lead to high blood pressure. What increases the risk? Some lifestyle factors can make you more likely to develop high blood pressure: ??? Smoking. ??? Not getting enough exercise or physical activity. ??? Being overweight. ??? Having too much fat, sugar, calories, or salt (sodium) in your diet. ??? Drinking too much alcohol. Other risk factors include: ??? Having any of these conditions: ? Heart disease. ? Diabetes. ? High cholesterol. ? Kidney disease. ? Obstructive sleep apnea. ??? Having a family history of high blood pressure and high cholesterol. ??? Age. The risk increases with age. ??? Stress. What are the signs or symptoms? High blood pressure may not cause symptoms. Very high blood pressure (hypertensive crisis) may cause: ??? Headache. ??? Fast or uneven heartbeats (palpitations). ??? Shortness of breath. ??? Nosebleed. ??? Vomiting or feeling like you may vomit (nauseous). ??? Changes in how you see. ??? Very bad chest pain. ??? Feeling dizzy. ??? Seizures. How is this treated? This condition is treated by making healthy lifestyle changes, such as: ? Eating healthy foods. ? Exercising more. ? Drinking less alcohol. ??? Your doctor may prescribe medicine if lifestyle changes do not help enough and if: ? Your top number is above 130. ? Your bottom number is above 80. ??? Your personal target blood pressure may vary. Follow these instructions at home: Eating and drinking ??? If told, follow the DASH eating plan. To follow this plan: ? Fill one half of your plate at each meal with fruits and vegetables. ? Fill one fourth of your plate at each meal with whole grains. Whole grains include whole-wheat pasta, brown rice, and whole-grain bread. ? Eat or drink low-fat dairy products, such as skim milk or low-fat yogurt. ? Fill one fourth of your plate at each meal with low-fat (lean) proteins. Low- fat proteins includefish, chicken without skin, eggs, beans, and tofu. ? Avoid fatty meat, cured and processed meat, or chicken with skin. ? Avoid pre-made or processed food. ??? Limit the amount of salt in your diet to less than 1,500 mg each day. ??? Do not drink alcohol if: ? Your doctor tells you not to drink. ? You are , may be , or are planning to become . ??? If you drink alcohol: ? Limit how much you have to: ? 0?1 drink a day for women. ? 0?2 drinks a day for men. ? Know how much alcohol is in your drink. In the [place] one drink equals one 12 oz bottle of beer (355 mL), one 5 oz glass of wine (148 mL), or one 1? oz glass of hard liquor (44 mL). Lifestyle ??? Work with your doctor to stay at a healthy weight or to lose weight. Ask your doctor what the best weight is for you. ??? Get at least 30 minutes of exercise that causes your heart to beat faster (aerobic exercise) most days of the week. This may include walking, swimming, or biking. ??? Get at least 30 minutes of exercise that strengthens your muscles (resistance exercise) at least 3 days a week. This may include lifting weights or doing Pilates. ??? Do not smoke or use any products that contain nicotine or tobacco. If you need help quitting, ask your doctor. ??? Check your blood pressure at home as told by your doctor. ??? Keep all follow-up visits. Medicines ??? Take epdx-flu-kxvvwgr and prescription medicines only as told by your doctor. Follow directionscarefully. ??? Do not skip doses of blood pressure medicine. The medicine does not work as well if you skip doses. Skipping doses also puts you at risk for problems. ??? Ask your doctor about side effects or reactions to medicines that you should watch for. Contact a doctor if: ??? You think you are having a reaction to the medicine you are taking. ??? You have headaches that keep coming back. ??? You feel dizzy. ??? You have swelling in your ankles. ??? You have trouble with your vision. Get help right away if: ??? You get a very bad headache. ??? You start to feel mixed up (confused). ??? You feel weak or numb. ??? You feel faint. ??? You have very bad pain in your: ? Chest. ? Belly (abdomen). ??? You vomit more than once. ??? You have trouble breathing. These symptoms may be an emergency. Get help right away. Call 911. ??? Do not wait to see if the symptoms will go away. ??? Do not drive yourself to the hospital. Summary ??? Hypertension is a (more content not included)...[facility] 10-24-2024 History of Present illness Narrative* Saman Coleman, DP - 10/24/2024 1:15 PM EST Images from the original note were not included. HPI: Patient states that the nails are especially painful with shoe gear and pressure. He states that they has no pain in the feet. There is pain related to the toenails, especially with shoe gear and pressure. They have difficulty with trimming the nails due to trouble reaching them and because of the thickness in the nail. Patient denies being diabetic. Patient has not problems with slow healing wounds or sores on the feet. Patient does not have burning, tingling and numbness in the feet. Patient's PCP is Umesh Aquino MD. Date of Last visit: 10/17/2024. No other pedal complaints at this time. Exam: General Examination: GENERAL APPEARANCE: awake, aware of surroundings, in no acute distress Vascular: DORSALIS PEDIS PULSE: 2/4, bilaterally POSTERIOR TIBIAL PULSE: 2/4, bilaterally TEMPERATURE GRADIENT: warm to cool EDEMA: none CAPILLARY FILLING TIME(sec): capillary fill intact bilateral digits less than 3 secs Neurologic: NEUROLOGIC: light touch is intact to the plantar foot Dermatologic: SKIN FINDINGS: normal HYPERKERATOSIS: plantar lateral left foot at the site of prominence from Charcot NAIL PATHOLOGY: Nails 1-5 bilateral are intact. Incurvation noted to the medial, lateral border of the 1 - L nail. There is pain noted with pressure at the medial, lateralnail fold. Erythema and edema is not noted to the affected nail fold. Hypertrophy of the nail fold is present. No malodor or drainage is noted SKIN PATHOLOGY: texture, turgor, hair growth, within normal limits Nail Pathology: Left Foot: 1 (great toe): Long, Thick, Crumbly, Deformed, Discolored, Brittle, Dystrophic 2: Long, Thick, Crumbly, Deformed, Discolored, Brittle, Dystrophic 3: Long, Thick, Crumbly, Deformed, Discolored, Brittle, Dystrophic 4: Long, Thick, Crumbly, Deformed, Discolored, Brittle, Dystrophic 5: Long, Thick, Crumbly, Deformed, Discolored, Brittle, Dystrophic Nail Pathology: Right Foot: 1 (great toe): Long, Thick, Crumbly, Deformed, Discolored, Brittle, Dystrophic 2: Long, Thick, Crumbly, Deformed, Discolored, Brittle, Dystrophic 3: Long, Thick, Crumbly, Deformed, Discolored, Brittle, Dystrophic 4: Long, Thick, Crumbly, Deformed, Discolored, Brittle, Dystrophic 5: Long, Thick, Crumbly, Deformed, Discolored, Brittle, Dystrophic Orthopedic: FOOT MORPHOLOGY: normal JOINT RANGE OF MOTION: normal ankle and subtalar joint and 1st MPJ ROM bilateral DEFORMITIES: Charcot left foot, prominence to the plantar lateral left foot PAIN ELICITED WITH PALPATION OF: Overlying the site of ingrown toenail left hallux MUSCLE STRENGTH: 5/5 for all pedal groups tested Diabetic shoes and inserts: Date of diabetic foot exam: 10/24/24 Previous amputation of the foot were part of the foot: No History of previous ulceration of the foot: No History of pre-ulcerative callus of the foot: Yes Peripheral neuropathy with evidence of callus formation: Yes Foot deformity: Yes - charcot left foot Poor circulation: No Patient's DM shoes with inserts fit well to his feet without any areas of rubbing or pain. Assessments: ICD L60.0 - Ingrowing Nail: ICD M79.672 - Pain in left foot: ICD M79.671 - Pain in right foot: Onychomycosis Type II diabetes with neuro complications Charcot left foot Treatment Note: Diabetes, Onychomycosis: 1. Nails were debrided in length and thickness by manual and mechanical means. 2. Advised patient on continued proper diabetic foot care including daily monitoring of their feet for any new complaints or concerns that may arise. 3. Discussed importance of tight blood sugar control to prevent future complications. 4. RTC: 9-12 weeks or as needed if problems arise. documented in this encounterBarton County Memorial [id number] History of Present illness Narrative* Stevie Morales, ARRT - 10/22/2024 11:30 AM EST Images from the original note were not included. Reason for Appointment: Epidural Patient ID: Robbin Bartlett is a 64 y.o. male who presents for lumbar radiculopathy. Current Medications: has a current medication list which includes the following prescription(s): atorvastatin, b-d uf iii mini pen needles, chlorhexidine, etodolac, fexofenadine, furosemide, gabapentin, glyburide, hydrocodone- acetaminophen, ibuprofen, insulin lispro protamine-insulin lispro, lamotrigine, lamotrigine, latuda, latuda, losartan, metformin, pioglitazone, ozempic (0.25 or 0.5 mg/dose), sertraline, and tizanidine. Vitals: Visit Vitals BP 115/64 Pulse 84 SpO2 92% Smoking Status Former Allergies: Allergies Allergen Reactions Penicillins Hives and Swelling Tetanus Toxoids Hives and Swelling EPIDURAL NOTE: Bilateral L4 Epidural Injection Fluoroscopic needle guidance REASON FOR PROCEDURE: Lumbar radiculopathy and radicular pain ALLERGIES: See allergy list above. Patient specifically denies contrast and shellfish allergy. MEDICATIONS INJECTED: 1ml of 0.25% Bupivacaine mixed with Dexamethasone (10mg/ml) 10mg total. LOCAL ANESTHETIC INJECTED: None CONTRAST: Omnipaque 300mgI/mL, 1 mL per each procedure site SEDATION MEDICATIONS: None TOPICAL ANESTHETIC: Ethyl Chloride spray ESTIMATED BLOOD LOSS: None COMPLICATIONS: None TECHNIQUE: If applicable, blood thinning medications were held according to SIS and KELLEN guidelines. Time-out was taken to identify the correct patient, procedure, and side prior to starting the procedure. Lying in a prone position, the patient was prepped in the usual aseptic fashion. The appropriate site was identified under fluoroscopy. A 22 gauge needle was then introduced and the Right L4 foramen was negotiated under direct intermittent fluoroscopy. Lateral view was obtained to confirm needle placement and depth. Negative aspiration confirmed no blood and no CSF return. In the AP view 1 ml of Omnipaque 300mgI/mL contrast was injected and showed a good spread of the dye along the corresp onding nerve root and through the foramen into the axillary recess of the epidural space without any vascular uptake. Then the 0.5ml of 0.25% Bupivacaine mixed with 0.5ml of Dexamethasone 10mg/ml wasinjected without adverse effect. The next appropriate site was identified under fluoroscopy. A 22 gauge needle was then introduced and the Left L4 foramen was negotiated under direct intermittent fluoroscopy. Lateral view was obtained to confirm needle placement and depth. Negative aspiration confirmed no blood and no CSF return. In the AP view 1 ml of Omnipaque 300mgI/mL contrast was injected and showed a good spread of the dyealong the corresponding nerve root and through the foramen into the axillary recess of the epiduralspace without any vascular uptake. Then the 0.5ml of 0.25% Bupivacaine mixed with 0.5ml of Dexamethasone 10mg/ml was injected without adverse effect. The procedure was completed without complications and was tolerated well. The patient was monitoredafter the procedure. The patient (or responsible republican) was given post-procedure and discharge instructions to follow at home. The patient was discharged in stable condition. A follow-up appointment was made. The patient was instructed to avoid activities that would normally worsen the pain. 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 Chief Complaint Patient presents with Back Pain Weakness, Gen Subjective Robbin Bartlett, 64 y.o., male Patient is here for a follow up to low back pain. He had an initial epidural injection on 07/03/24. He states this reduced his low back pain by 50-60%. He states that pain is slowly returning. He reports localized pain right in the center of his low back and admits that pain can radiate down his bilateral legs. Worse on the right. He denies any saddle anesthesia, loss of bowel or bladder control or falls. He states he has been going to the gym and walking on a treadmill. States he can tell when he overdoes it because his pain worsens. No further concerns Review of Systems Constitutional: Negative for appetite change, fatigue and fever. Respiratory: Negative for cough, shortness of breath and wheezing. Cardiovascular: Negative for chest pain, palpitations and leg swelling. Gastrointestinal: Negative for abdominal pain, constipation, diarrhea and nausea. Musculoskeletal: Positive for arthralgias, back pain, gait problem and myalgias. Neurological: Positive for weakness and numbness. Negative for dizziness, tremors and headaches. Past Medical History: Diagnosis Date Allergies At high risk for falls Bipolar disorder ([facility] [place]) Cervical pain (neck) Chronic kidney disease (CKD), stage III (moderate) ([facility] [place]) ([facility] [place]) Constipation, chronic COVID-19 virus detected Depression ([facility] [place]) Diabetes mellitus, type 2 ([facility] [place]) Encounter for initial annual wellness visit (AWV) in Medicare patient 11/02/2023 Encounter for subsequent annual wellness visit (AWV) in Medicare patient 11/02/2023 Environmental allergies Eustachian tube dysfunction Fatigue Hip pain, chronic, right HLD (hyperlipidemia) ([facility] [place]) 12/28/2023 Left ankle pain Left foot pain Lower extremity edema 12/28/2023 Lumbar back pain with radiculopathy affecting left lower extremity 12/25/2023 Morbid obesity with body mass index (BMI) of 40.0 to 49.9 ([facility] [place]) Obesity (BMI 30-39.9) 10/23/2023 Osteoarthritis of hip Plantar fasciitis, left Pneumonia Pre-operative clearance 10/23/2023 Primary hypertension ([facility] [place]) 10/23/2023 Spondylosis, cervical Swelling of left foot TIA (transient ischemic attack) Tinea cruris Tremor of right hand Type 2 diabetes mellitus with Charcot's joint of left foot ([facility] [place]) Type 2 diabetes mellitus with peripheral neuropathy (CMS/HCC) Varus foot deformity, acquired, left Vitamin B12 deficiency Vitamin deficiency Past Surgical History: Procedure Laterality Date ADENOIDECTOMY APPENDECTOMY CARPAL TUNNEL RELEASE 7 surgeries CATARACT EXTRACTION CHOLECYSTECTOMY COLONOSCOPY COLONOSCOPY 08/02/2017 Normal FEMUR SURGERY Right [facility] OR CATARACT REMOVAL KNEE SURGERY Right 1974 BONE IMPLANT / 1975 HARDWARE REMOVAL / 2018 KNEE SCOPE TONSILLECTOMY TOTAL HIP ARTHROPLASTY Right 11/08/2023 DR SNELL Family History Problem Relation Name Age of Onset Cancer Mother Uterine cancer Lupus Mother Mental illness Father Mental illness Sister Mental illness Brother Brother Schizophrenic Social History Tobacco Use Smoking status: Former Current packs/day: 0.00 Types: Cigarettes Quit date: 1989 Years since quittin.9 Smokeless tobacco: Never Tobacco comments: Quit smoking >10 years ago. 20-30 cigarettes/day Substance Use Topics Alcohol use: Never Allergies: Penicillins and Tetanus toxoids Vitals: 10/16/24 1101 BP: 143/70 Pulse: 71 Body mass index is 40.76 kg/m . weight: 276 lb Neurologic exam: Mental status: Obese, in no acute distress. Grossly oriented to person, place and time. Recent and remote memory are intact. Language is fluent without aphasia. Attention and concentration are normal. Fund of knowledge is appropriate for level of education. Cranial nerves: CN II: Visual acuity is normal. Visual spencer full to confrontation. CN III, IV, : pupils equal round and reactive to light. Extraocular movements intact. No ptosis present. CN V: Facial sensation is normal. CN VII: Full and symmetric facial movement. CN VIII: Hearing is intact CN IX and X: Palate elevates symmetrically. CN XI: Shoulder shrug is normal bilaterally. CN XII: Tongue is midline without atrophy or fasciculation. Motor: RUE Strength deltoid, , biceps , triceps , wrist extensors , wrist flexor , clerk telegraph service strength 5/5. LUE Strength deltoid , biceps , triceps , wrist extensors , wrist flexor , clerk telegraph service strength 5/5. RLE Strength illopsoas, quadriceps, tibialis anterior, and gastrocnemius strength 5/5. LLE Strength illopsoas, quadriceps, tibialis anterior, and gastrocnemius strength 5/5. Normal tone x4 extremities. Bulk is normal Lumbar paraspinals are TTP bilaterally. Sensory: Sensation is intact to light touch throughout distal extremities. Vibratory sensation diminished in distal extremities. Reflexes: RUE biceps reflex 2+ , brachioradialis reflex 2+. LUE biceps reflex 2+ , brachioradialis reflex 2+. RLE knee reflex 0. LLE knee reflex 1+ . López's Sign negative. Coordination: [id number] testing is normal Rapid alternating movements are normal Gait: Normal Review and summary of old records: MRI of the lumbar spine on 05/12/23: At L4-L5: There is a circumferential disc bulge with facet hypertrophy and a small left-sided facet effusion. There is an internal synovial cyst on the right measuring 8 mm in greatest dimension. There is moderate spinal canal stenosis with moderate right and mild left neural foraminal stenosis. L5-S1: There is a broad-based disc bulge with facet hypertrophy. There is mild narrowing of spinal canal with mild right neural foraminal narrowing. Significant degenerative changes are partly visualized in the hips right greater than left. This is worse when compared to prior exam. EMG of the BLE on 02/07/2023: A generalized process such as polyneuropathy, which is axonal loss in type and severe in degree electrically. Superimposed radicular process cannot be excluded based on the EDX evaluation. Assessment/Plan Diagnoses and all orders for this visit: Lumbar radiculopathy Right leg weakness The patient initially presented with complaints of right leg weakness. As such we did evaluate withEMG which demonstrated severe polyneuropathy but also could not rule out a radicular process. He does also have significant right knee and bilateral hip pain R>L which may also be contributing to his symptoms. MRI of the lumbar spine on 05/12/23 demonstrated degenerative changes worse at L4-L5 whe re there is a circumferential disc bulge with facet hypertrophy among other degenerative changes. In addition to weakness he does have some complaints of what sounds to be neurogenic claudication. Hehas been evaluated by [facility] (Dr. Santamaria) who did not identify any surgical needs. The patient has since underwent a right knee replacement but has complaints of pain seemingly following a dermatomal distribution consistent with L4 with radiating symptoms down the right greater than left lower extremity. The patient admits that epidural injection has reduced his pain by 50-60% with gradual return ofhis low back pain and he is now working out at a gym walking on the treadmill. Due to some return of his pain he would like to pursue with future injection. PLAN: - Repeat bilateral L4 epidural. Risks including but not limited to epidural hematoma, contrast reaction, infection and cumulative steroid dose risk have been discussed as well as allergy to medication. Patient verbalizes understanding and wishes to proceed. - Continue follow up with ortho as recommended for knee and hip pain - Continue home PT exercises Facet arthropathy, lumbar See above. Myalgia Lumbar paraspinals are TTP bilaterally. The patient does take tizanidine at night which he reports is somewhat beneficial. Trigger injections were beneficial previously. PLAN: - Consider repeat trigger injections as needed Diabetic polyneuropathy associated with type 2 diabetes mellitus ([facility] [place]) The patient has evidence of severe polyneuropathy on EMG of the bilateral lower extremities. He is diabetic which is likely causative for his symptoms. Vibratory sensation is diminished distally on clinical exam. PLAN: - Currently on gabapentin by another provider - Recommended tight glucose control and close follow up with PCP for management of diabetes - Recommended keeping the feet clean and dry and performing daily skin checks. Follow up after epidural injection or sooner if symptoms worsen, fail to improve, or should a new neurological concern arise. Pt has been fully educated on their diagnosis, treatment options, follow up plan, and return instructions documented in this encounterBarton County Memorial [id number] NotePatient Education Cardiovascular Hypertension, Adult High blood pressure (hypertension) is when the force of blood pumping through the arteries is too strong. The arteries are the blood vessels that carry blood from the heart throughout the body. Hypertension forces the heart to work harder to pump blood and may cause arteries to become narrow or stiff. Untreated or uncontrolled hypertension can lead to a heart attack, heart failure, a stroke, kidney disease, and other problems. A blood pressure reading consists of a higher number over a lower number. Ideally, your blood pressure should be below 120/80. The first ( top ) number is called the systolic pressure. It is a measure of the pressure in your arteries as your heart beats. The second ( bottom ) number is called the diastolic pressure. It is a measure of the pressure in your arteries as the heart relaxes. What are the causes? The exact cause of this condition is not known. There are some conditions that result in high bloodpressure. What increases the risk? Certain factors may make you more likely to develop high blood pressure. Some of these risk factorsare under your control, including: ??? Smoking. ??? Not getting enough exercise or physical activity. ??? Being overweight. ??? Having too much fat, sugar, calories, or salt (sodium) in your diet. ??? Drinking too much alcohol. Other risk factors include: ??? Having a personal history of heart disease, diabetes, high cholesterol, or kidney disease. ??? Stress. ??? Having a family history of high blood pressure and high cholesterol. ??? Having obstructive sleep apnea. ??? Age. The risk increases with age. What are the signs or symptoms? High blood pressure may not cause symptoms. Very high blood pressure (hypertensive crisis) may cause: ??? Headache. ??? Fast or irregular heartbeats (palpitations). ??? Shortness of breath. ??? Nosebleed. ??? Nausea and vomiting. ??? Vision changes. ??? Severe chest pain, dizziness, and seizures. How is this diagnosed? This condition is diagnosed by measuring your blood pressure while you are seated, with your arm resting on a flat surface, your legs uncrossed, and your feet flat on the floor. The cuff of the bloodpressure monitor will be placed directly against the skin of your upper arm at the level of your heart. Blood pressure should be measured at least twice using the same arm. Certain conditions can cause a difference in blood pressure between your right and left arms. If you have a high blood pressure reading during one visit or you have normal blood pressure with other risk factors, you may be asked to: ??? Return on a different day to have your blood pressure checked again. ??? Monitor your blood pressure at home for 1 week or longer. If you are diagnosed with hypertension, you may have other blood or imaging tests to help your health care provider understand your overall risk for other conditions. How is this treated? This condition is treated by making healthy lifestyle changes, such as eating healthy foods, exercising more, and reducing your alcohol intake. You may be referred for counseling on a healthy diet and physical activity. Your health care provider may prescribe medicine if lifestyle changes are not enough to get your blood pressure under control and if: ??? Your systolic blood pressure is above 130. ??? Your diastolic blood pressure is above 80. Your personal target blood pressure may vary depending on your medical conditions, your age, and other factors. Follow these instructions at home: Eating and drinking ??? Eat a diet that is high in fiber and potassium, and low in sodium, added sugar, and fat. An example of this eating plan is called the DASH diet. DASH stands for Dietary Approaches to Stop Hypertension. To eat this way: ? Eat plenty of fresh fruits and vegetables. Try to fill one half of your plate at each meal with fruits and vegetables. ? Eat whole grains, such as whole-wheat pasta, brown rice, or whole-grain bread. Fill about one fourth of your plate with whole grains. ? Eat or drink low-fat dairy products, such as skim milk or low-fat yogurt. ? Avoid fatty cuts of meat, processed or cured meats, and poultry with skin. Fill about one fourth of your plate with lean proteins, such as fish, chicken without skin, beans, eggs, or tofu. ? Avoid pre-made and processed foods. These tend to be higher in sodium, added sugar, and fat. ??? Reduce your daily sodium intake. Many people with hypertension should eat less than 1,500 mg ofsodium a day. ??? Do not drink alcohol if: ? Your health care provider tells you not to drink. ? You are , may be , or are planning to become . ??? If you drink alcohol: ? Limit how much you have to: ? 0?1 drink a day for women. ? 0?2 drinks a day for men. ? Know how much alcohol is in your drink. In the [place] one drink equals one 12 oz bottle (more content not included)...[facility]10-31-2024 History of Present illness Narrative* Saman Coleman DPM - 09/12/2024 8:30 AM EDT Images from the original note were not included. HPI: Patient presents today to pharmacy picking tech their extra depth diabetic shoes and custom made diabetic inserts. Shoes were ordered from Dr. Gonzalez, style Christopher X [id number], size 12W on the right foot and 14W on the left foot. Insoles were ordered from Dr. Gonzalez. Required paperwork has been completed includingneeded documentation from the patient's PCP/Appointment Scheduler. He states that he is looking for a newPCP. No other complaints. Exam: General Examination: GENERAL APPEARANCE: awake, aware of surroundings, in no acute distress Vascular: DORSALIS PEDIS PULSE: 2/4, bilaterally POSTERIOR TIBIAL PULSE: 2/4, bilaterally TEMPERATURE GRADIENT: warm to cool EDEMA: none CAPILLARY FILLING TIME(sec): capillary fill intact bilateral digits less than 3 secs Neurologic: NEUROLOGIC: light touch is intact to the plantar foot Dermatologic: SKIN FINDINGS: normal HYPERKERATOSIS: plantar lateral left foot at the site of prominence from Charcot NAIL PATHOLOGY: Nails 1-5 bilateral are intact. Incurvation noted to the medial, lateral border of the 1 - L nail. There is pain noted with pressure at the medial, lateralnail fold. Erythema and edema is not noted to the affected nail fold. Hypertrophy of the nail fold is present. No malodor or drainage is noted SKIN PATHOLOGY: texture, turgor, hair growth, within normal limits Nail Pathology: Left Foot: 1 (great toe): Long, Thick, Crumbly, Deformed, Discolored, Brittle, Dystrophic 2: Long, Thick, Crumbly, Deformed, Discolored, Brittle, Dystrophic 3: Long, Thick, Crumbly, Deformed, Discolored, Brittle, Dystrophic 4: Long, Thick, Crumbly, Deformed, Discolored, Brittle, Dystrophic 5: Long, Thick, Crumbly, Deformed, Discolored, Brittle, Dystrophic Nail Pathology: Right Foot: 1 (great toe): Long, Thick, Crumbly, Deformed, Discolored, Brittle, Dystrophic 2: Long, Thick, Crumbly, Deformed, Discolored, Brittle, Dystrophic 3: Long, Thick, Crumbly, Deformed, Discolored, Brittle, Dystrophic 4: Long, Thick, Crumbly, Deformed, Discolored, Brittle, Dystrophic 5: Long, Thick, Crumbly, Deformed, Discolored, Brittle, Dystrophic Orthopedic: FOOT MORPHOLOGY: normal JOINT RANGE OF MOTION: normal ankle and subtalar joint and 1st MPJ ROM bilateral DEFORMITIES: Charcot left foot, prominence to the plantar lateral left foot PAIN ELICITED WITH PALPATION OF: Overlying the site of ingrown toenail left hallux MUSCLE STRENGTH: 5/5 for all pedal groups tested Diabetic shoes and inserts: Date of diabetic foot exam: 09/10/24 Previous amputation of the foot were part of the foot: No History of previous ulceration of the foot: No History of pre-ulcerative callus of the foot: Yes Peripheral neuropathy with evidence of callus formation: Yes Foot deformity: Yes - charcot left foot Poor circulation: No Patient's DM shoes with inserts fit well to his feet without any areas of rubbing or pain. Assessments: ICD L60.0 - Ingrowing Nail: ICD M79.672 - Pain in left foot: ICD M79.671 - Pain in right foot: Onychomycosis Type II diabetes with neuro complications Charcot left foot Treatment Note: Patient was fitted for and dispensed their extra depth diabetic shoes (A5500). Patient was instructed on the gradual break-in of the shoes and inserts. Patient also instructed on use of the custom molded insoles (A5514) and the gradual break-in for these and continued use for the year. There is certification from the physician managing the patients diabetes. The shoes were fitted with [id number]-nkqajos custom insoles. Their purpose is to allow extra depth and to accommodate the patientsanatomy and deformity to prevent ulceration, irritation, or other complications associated with thepatients medical history. Use of rotating new pair of insoles was discussed. Proper use and care were reviewed. They are able to ambulate without distress in shoes and insoles. The diabetic shoes fitwell when sized to the patients feet. The patient was evaluated by the physician while wearing the diabetic shoes and insoles and the fit was found to be satisfactory. Acknowledgement for receiving was signed. At that time, the shoes and insoles were dispensed, it was suitable for their condition and not substandard. Written and verbal instructions and warranty information were given as well as the list of the current Durable Medical Equipment Supplier Guidelines and Complaint Resolution if requested. All questions were answered and they were instructed to call the office with any questions or problems, and the patient is to watch for areas of rubbing, blister formation, or any other signs of abnormal pressure. If this occurs, the patient is to contact the office immediately. Patient is to return in 3 weeks for recheck or as scheduled. documented in this encounterBarton County Memorial [id number] History of Present illness Narrative* Saman Coleman, DPM - 07/25/2024 2:30 PM EDT Images from the original note were not included. HPI: Ingrown Toenail under Podiatric consultations: Patient presents to the clinic c/o painful ingrown toenail on the left great toe. This has been present for the past weeks. There is redness and/or drainage to the area. Patient has pain along the affected nail border with shoe gear and pressure. Previous treatment consists of nothing. Pt is on antibiotics for hip replacement. Patient has had a prior nail procedure performed. The toenail broke off and starting to regrow and has caused some pain to the area. Patient admits to being diabetic. He denies any history of wound/sores on the feet. Patient take Gabapentin for his neuropathy. No other complaints. Patient would like to be fitted for a new pair of DM shoes and inserts at today's office visit. Thecatalog's were dispensed and patient is going to select a pair and be fitted. They are aware of therequired paperwork that needs to be completed to order these devices and the timeframe associated with this. Exam: General Examination: GENERAL APPEARANCE: awake, aware of surroundings, in no acute distress Vascular: DORSALIS PEDIS PULSE: 2/4, bilaterally POSTERIOR TIBIAL PULSE: 2/4, bilaterally TEMPERATURE GRADIENT: warm to cool EDEMA: none CAPILLARY FILLING TIME(sec): capillary fill intact bilateral digits less than 3 secs Neurologic: NEUROLOGIC: light touch is intact to the plantar foot Dermatologic: SKIN FINDINGS: normal HYPERKERATOSIS: plantar lateral left foot at the site of prominence from Charcot NAIL PATHOLOGY: Nails 1-5 bilateral are intact. Incurvation noted to the medial, lateral border of the 1 - L nail. There is pain noted with pressure at the medial, lateralnail fold. Erythema and edema is not noted to the affected nail fold. Hypertrophy of the nail fold is present. No malodor or drainage is noted SKIN PATHOLOGY: texture, turgor, hair growth, within normal limits Nail Pathology: Left Foot: 1 (great toe): Long, Thick, Crumbly, Deformed, Discolored, Brittle, Dystrophic 2: Long, Thick, Crumbly, Deformed, Discolored, Brittle, Dystrophic 3: Long, Thick, Crumbly, Deformed, Discolored, Brittle, Dystrophic 4: Long, Thick, Crumbly, Deformed, Discolored, Brittle, Dystrophic 5: Long, Thick, Crumbly, Deformed, Discolored, Brittle, Dystrophic Nail Pathology: Right Foot: 1 (great toe): Long, Thick, Crumbly, Deformed, Discolored, Brittle, Dystrophic 2: Long, Thick, Crumbly, Deformed, Discolored, Brittle, Dystrophic 3: Long, Thick, Crumbly, Deformed, Discolored, Brittle, Dystrophic 4: Long, Thick, Crumbly, Deformed, Discolored, Brittle, Dystrophic 5: Long, Thick, Crumbly, Deformed, Discolored, Brittle, Dystrophic Orthopedic: FOOT MORPHOLOGY: normal JOINT RANGE OF MOTION: normal ankle and subtalar joint and 1st MPJ ROM bilateral DEFORMITIES: Charcot left foot, prominence to the plantar lateral left foot PAIN ELICITED WITH PALPATION OF: Overlying the site of ingrown toenail left hallux MUSCLE STRENGTH: 5/5 for all pedal groups tested Diabetic shoes and inserts: Date of diabetic foot exam: 07/25/24 Previous amputation of the foot were part of the foot: No History of previous ulceration of the foot: No History of pre-ulcerative callus of the foot: Yes Peripheral neuropathy with evidence of callus formation: Yes Foot deformity: Yes - charcot left foot Poor circulation: No Assessments: ICD L60.0 - Ingrowing Nail: ICD M79.672 - Pain in left foot: ICD M79.671 - Pain in right foot: Onychomycosis Type II diabetes with neuro complications Charcot left foot Treatment Note: Diabetes, Onychomycosis: 1. Nails were debrided in length and thickness by manual and mechanical means. 2. Advised patient on continued proper diabetic foot care including daily monitoring of their feet for any new complaints or concerns that may arise. 3. Discussed importance of tight blood sugar control to prevent future complications. 4. RTC: 9-12 weeks or as needed if problems arise. Diabetes: 1. A Diabetic Foot Screening Exam was performed and the patient was educated on the foot complications related to Diabetes. Instructed to contact our office if any foot problems develop before next visit. 2. Patient was instructed on the continued importance of diabetic foot care along with proper diet and keeping their blood sugar under control to prevent complications. 3. Patient would like to proceed with extra depth diabetic shoes and insoles. We discussed the needed paperwork from their PCP in order to proceed with ordering these if they would like to obtain them. The patient fits the criteria for shoes and inserts based upon diabetes,Charcot left foot, neuropathy. The patient was measured in length and width on each foot to determine sizing. Patient was also casted in standard technique for custom insoles which will be ordered from the shoe supplier. 4. Patient will be contacted when the necessary paperwork is completed to schedule an appointment for pick-up. documented in this encounterBarton County Memorial [id number] History of Present illness Narrative* Idalmis Adam NP - 07/24/2024 5:50 PM EDTAssociated Problem(s): Seborrhea Trial dandruff shampoo to affected area of forehead * Idalmis Adam NP - 07/24/2024 2:23 PM EDTAssociated Problem(s): Type 2 diabetes mellitus with insulin therapy (CMS/HCC) Having some lows of upper 50's in the 4-5 am garrison Cut back on dose of SIMMS at evening time from 10mg total to 5mg total, cont 10mg am And that evening dose take WITH meal at 8pm Fu in 6 weeks, check labs prior to appt and pt will stop by in 3 weeks with updated sugar reads * Idalmis Adam NP - 07/24/2024 2:21 PM EDTAssociated Problem(s): Proliferative diabetic retinopathy of both eyes associated with type 2 diabetes mellitus (CMS/HCC) Has eye appt scheduled * RADHA COOPER 07/24/2024 1:00 PM EDT Pt has an eye dr appt, an appt with neuro, and an appt with neph. Pt is still weak and almost falling, he is still having weakness in his legs. Does not complain of numbness or tingling. All meds are the same, he did change the time of taking his metformin to 8pm instead 1am Pt fasting bs are still running 50s-55s still Pt has one more physical therapy appt. Pt is on atb after getting dentures (he has a mass) AND they prescribed him pain medication but he is not using. * Idalmis Adam, DEVON - 07/24/2024 1:00 PM EDT Images from the original note were not included. Robbin Bartlett is a 64 y.o. male presents with chief complaint of No chief complaint on file. HPI: Here for a recheck of diabetes: Last appt was having low sugars am, I ask his adjust his insulin time, he has done this, however hestill takes his glipizide at 1am (10mg), low blood sugars are around 3-5am SUBJECTIVE: MEDICATIONS: Current Outpatient Medications Medication Instructions atorvastatin (LIPITOR) 40 mg, Oral, Every evening B-D UF III MINI PEN NEEDLES 31G X 5 MM misc chlorhexidine (Peridex) 0.12 % solution RINSE WITH 1/2 OUNCE TWICE A DAY AFTER BREAKFAST AND BEFOREBEDTIME *SPIT OUT DO NOT SWALLOW* Continuous Glucose Vocational Examiner (FreeStyle Anibal 3 [place]) device 1 each, Does not apply, Daily Continuous Glucose Sensor (FreeStyle Anibal 3 Sensor) misc CHANGE SENSOR EVERY 14 DAYS etodolac (LODINE) 400 mg, Oral, 2 times daily PRN fexofenadine (DEB) 180 mg, Oral, Daily furosemide (LASIX) 20 mg, Oral, Every other day gabapentin (NEURONTIN) 300 mg, Oral, 3 times daily glyBURIDE (Diabeta) 5 MG tablet 2 pills in the am, and 1 pill in the pm HYDROcodone-acetaminophen ([place]) 5-325 MG tablet 1 tablet, Oral, Every 6 hours PRN ibuprofen 600 MG tablet TAKE 1 TABLET (600 MG) BY MOUTH EVERY 12 (TWELVE) HOURS IF NEEDED FOR MODERATE PAIN insulin lispro protamine-insulin lispro (HumaLOG MIX 75/25 KWIKPEN) (75-25) 100 UNIT/ML injection INJECT 53 UNITS SUBCUTANEOUSLY ONCE DAILY lamoTRIgine (LaMICtal) 150 MG tablet 2 tablets, Oral, Daily lamoTRIgine (LaMICtal) 25 MG tablet TAKE 1 TABLET AT NIGHT FOR 14 DAYS AND THEN 2 TABLETS AT NIGHT Latuda 20 MG tablet TAKE 1 TABLET BY MOUTH ONCE DAILY (TAKE IN ADDITION TO 80MG TABLET TO EQUAL 100MG) Latuda 80 MG tablet TAKE 1 TABLET BY MOUTH ONCE DAILY WITH FOOD (ATLEAST 350 CALORIES) losartan (COZAAR) 50 mg, Oral, Every morning metFORMIN (GLUCOPHAGE) 1,000 mg, Oral, 2 times daily with meals Ozempic (0.25 or 0.5 MG/DOSE) 0.5 mg, Other, Every 7 days pioglitazone (ACTOS) 30 mg, Oral, Every morning sertraline (ZOLOFT) 100 mg, Oral, Nightly tiZANidine (Zanaflex) 4 MG tablet TAKE 1 TABLET BY MOUTH AT BEDTIME NEEDED FOR MUSCLE SPASMS ALLERGIES: Allergies Allergen Reactions Penicillins Hives and Swelling Tetanus Toxoids Hives and Swelling REVIEW OF SYMPTOMS: Review of Systems Constitutional: Negative for activity change, appetite change and unexpected weight change. HENT: Negative for ear pain, nosebleeds, sneezing, trouble swallowing and voice change. Eyes: Negative for pain, discharge and visual disturbance. Respiratory: Negative for apnea, chest tightness and wheezing. Cardiovascular: Positive for leg swelling. Gastrointestinal: Negative for abdominal distention, blood in stool, constipation and diarrhea. Genitourinary: Negative for decreased urine volume, difficulty urinating, dysuria and hematuria. Musculoskeletal: Positive for back pain. Skin: Positive for rash. Negative for color change. Neurological: Positive for weakness and numbness. Negative for dizziness, tremors and seizures. Psychiatric/Behavioral: Negative for agitation, decreased concentration, hallucinations, self-injury and suicidal ideas. The patient is nervous/anxious. Hematological: Negative for adenopathy. Does not bruise/bleed easily. Endocrine: Negative for cold intolerance, heat intolerance, polydipsia and polyuria. Allergic/Immunologic: Negative for environmental allergies and food allergies. PAST MEDICAL HISTORY Past Medical History: Diagnosis Date Allergies At high risk for falls Bipolar disorder ([facility]) Cervical pain (neck) Chronic kidney disease (CKD), stage III (moderate) (HCC) ([facility]) Constipation, chronic COVID-19 virus detected Depression ([facility]) Diabetes mellitus, type 2 ([facility]) Encounter for initial annual wellness visit (AWV) in Medicare patient 11/02/2023 Encounter for subsequent annual wellness visit (AWV) in Medicare patient 11/02/2023 Environmental allergies Eustachian tube dysfunction Fatigue Hip pain, chronic, right HLD (hyperlipidemia) ([facility]) 12/28/2023 Left ankle pain Left foot pain Lower extremity edema 12/28/2023 Lumbar back pain with radiculopathy affecting left lower extremity 12/25/2023 Morbid obesity with body mass index (BMI) of 40.0 to 49.9 ([facility]) Obesity (BMI 30-39.9) 10/23/2023 Osteoarthritis of hip Plantar fasciitis, left Pneumonia Pre-operative clearance 10/23/2023 Primary hypertension ([facility]) 10/23/2023 Spondylosis, cervical Swelling of left foot TIA (transient ischemic attack) Tinea cruris Tremor of right hand Type 2 diabetes mellitus with Charcot's joint of left foot ([facility]) Type 2 diabetes mellitus with peripheral neuropathy ([facility]) Varus foot deformity, acquired, left Vitamin B12 deficiency Vitamin deficiency Past Surgical History: Procedure Laterality Date ADENOIDECTOMY APPENDECTOMY CARPAL TUNNEL RELEASE 7 surgeries CATARACT EXTRACTION CHOLECYSTECTOMY COLONOSCOPY COLONOSCOPY 08/02/2017 Normal FEMUR SURGERY Right [facility] OR CATARACT REMOVAL KNEE SURGERY Right 1974 BONE IMPLANT / 1975 HARDWARE REMOVAL / 2018 KNEE SCOPE TONSILLECTOMY TOTAL HIP ARTHROPLASTY Right 11/08/2023 DR SNELL family history includes Cancer in his mother; Lupus in his mother; Mental illness in his brother, father, and sister. OBJECTIVE: Visit Vitals BP 110/66 (BP Location: Left arm, Patient Position: Sitting, BP Cuff Size: Adult long) Pulse 79 Temp 98.5 F (Temporal) Resp 18 Ht 5' 9 Wt 271 lb 12.8 oz SpO2 94% BMI 40.14 kg/m Smoking Status Former BSA 2.45 m Physical Exam Vitals and nursing note reviewed. Constitutional: Appearance: Normal appearance. HENT: Head: Normocephalic. Right Ear: External ear normal. Left Ear: External ear normal. Nose: Nose normal. Mouth/Throat: Mouth: Mucous membranes are moist. Pharynx: Oropharynx is clear. Eyes: Extraocular Movements: Extraocular movements intact. Conjunctiva/sclera: Conjunctivae normal. Cardiovascular: Rate and Rhythm: Normal rate and regular rhythm. Pulses: Normal pulses. Heart sounds: Normal heart sounds. Pulmonary: Effort: Pulmonary effort is normal. Breath sounds: Normal breath sounds. Abdominal: General: Bowel sounds are normal. Palpations: Abdomen is soft. Musculoskeletal: Cervical back: Neck supple. Skin: General: Skin is warm and dry. Capillary Refill: Capillary refill takes 2 to 3 seconds. Findings: Rash (dry scaley rash to forehead) present. Neurological: General: No focal deficit present. Mental Status: He is alert. Psychiatric: Mood and Affect: Mood normal. Behavior: Behavior normal. Thought Content: Thought content normal. Judgment: Judgment normal. ASSESSMENT AND PLAN: No follow-ups on file. Problem List Items Addressed This Visit Type 2 diabetes mellitus with peripheral neuropathy ([facility]/HCC) Relevant Medications atorvastatin (Lipitor) 40 MG tablet gabapentin (Neurontin) 300 MG capsule pioglitazone (Actos) 30 MG tablet Primary hypertension ([facility]) Relevant Medications losartan (Cozaar) 50 MG tablet Morbid (severe) obesity due to excess calories ([facility]) Bilateral lower extremity edema Relevant Medications furosemide (Lasix) 20 MG tablet Type 2 diabetes mellitus with insulin therapy ([facility]) Having some lows of upper 50's in the 4-5 am garrison Cut back on dose of SIMMS at evening time from 10mg total to 5mg total, cont 10mg am And that evening dose take WITH meal at 8pm Fu in 6 weeks, check labs prior to appt and pt will stop by in 3 weeks with updated sugar reads Relevant Medications glyBURIDE (Diabeta) 5 MG tablet losartan (Cozaar) 50 MG tablet Other Relevant Orders Basic metabolic panel Hemoglobin A1c Body mass index (BMI) 40.0-44.9, adult ([facility]) - Primary Proliferative diabetic retinopathy of both eyes associated with type 2 diabetes mellitus ([facility]) Has eye appt scheduled Seborrhea Trial dandruff shampoo to affected area of forehead documented in this encounterBarton County Memorial [id number] History of Present illness Narrative* Stevie Morales, ARRT - 07/03/2024 12:15 PM EDT Images from the original note were not included. Reason for Appointment: Epidural Patient ID: Robbin Bartlett is a 64 y.o. male who presents for lumbar radiculopathy. Current Medications: has a current medication list which includes the following prescription(s): azithromycin, b-d uf iii mini pen needles, freestyle anibal 3 reader, fexofenadine, ibuprofen, insulin lispro protamine-insulin lispro, lamotrigine, latuda, latuda, losartan, metformin, sertraline, tizanidine, atorvastatin, furosemide, gabapentin, glyburide, pioglitazone, and ozempic (0.25 or 0.5 mg/dose). Vitals: Visit Vitals BP 117/86 (BP Location: Left arm, Patient Position: Sitting) Pulse 81 Smoking Status Former Allergies: Allergies Allergen Reactions Penicillins Hives and Swelling Tetanus Toxoids Hives and Swelling EPIDURAL NOTE: Bilateral L4 Epidural Injection Fluoroscopic needle guidance REASON FOR PROCEDURE: Lumbar radiculopathy and radicular pain ALLERGIES: See allergy list above. Patient specifically denies contrast and shellfish allergy. MEDICATIONS INJECTED: 1ml of 0.25% Bupivacaine mixed with Dexamethasone (10mg/ml) 10mg total. LOCAL ANESTHETIC INJECTED: None CONTRAST: Omnipaque 180mgI/mL, 1 mL per each procedure site SEDATION MEDICATIONS: None TOPICAL ANESTHETIC: Ethyl Chloride spray ESTIMATED BLOOD LOSS: None COMPLICATIONS: None TECHNIQUE: If applicable, blood thinning medications were held according to SIS and KELLEN guidelines. Time-out was taken to identify the correct patient, procedure, and side prior to starting the procedure. Lying in a prone position, the patient was prepped in the usual aseptic fashion. The appropriate site was identified under fluoroscopy. A 22 gauge needle was then introduced and the Right L4 foramen was negotiated under direct intermittent fluoroscopy. Lateral view was obtained to confirm needle placement and depth. Negative aspiration confirmed no blood and no CSF return. In the AP view 1 ml of Omnipaque 180mgI/mL contrast was injected and showed a good spread of the dye along the corresp onding nerve root and through the foramen into the axillary recess of the epidural space without any vascular uptake. Then the 0.5ml of 0.25% Bupivacaine mixed with 0.5ml of Dexamethasone 10mg/ml wasinjected without adverse effect. The next appropriate site was identified under fluoroscopy. A 22 gauge needle was then introduced and the Left L4 foramen was negotiated under direct intermittent fluoroscopy. Lateral view was obtained to confirm needle placement and depth. Negative aspiration confirmed no blood and no CSF return. In the AP view 1 ml of Omnipaque 180mgI/mL contrast was injected and showed a good spread of the dyealong the corresponding nerve root and through the foramen into the axillary recess of the epiduralspace without any vascular uptake. Then the 0.5ml of 0.25% Bupivacaine mixed with 0.5ml of Dexamethasone 10mg/ml was injected without adverse effect. The procedure was completed without complications and was tolerated well. The patient was monitoredafter the procedure. The patient (or responsible republican) was given post-procedure and discharge instructions to follow at home. The patient was discharged in stable condition. A follow-up appointment was made. The patient was instructed to avoid activities that would normally worsen the pain. Pre-procedure pain score: 10 /10 Chainsaw Mechanic: RT Alta(R) kVp: 103 Time (sec): 20 mA: 3.0 documented in this encounterBarton County Memorial [id number] History of Present illness Narrative* RANJIT Sheppard - 12/22/2023 10:45 AM EST Images from the original note were not included. HISTORY OF PRESENT ILLNESS: POST OP PT Robbin Bartlett is an 63 y.o. @ male. No surgery found s/p surgery onNo surgery found (EST PT) S/P (R) PATTI 11/08/23 (6WKS 2DAYS)- DOING WELL- CONTINUES PT @ [facility]; INCREASE ROM/STRENGTH- SOME DISCOMFORT HS- +ASA [...] the operative lower extremity with abduction stress testingnot preformed secondary to surgery healing. Dorsalis pedis and posterior tibial pulses were presentand equal bilaterally. Sensation to light touch was [...] before procedure. Patient has documentation that we didnot recommend any for elective dental treatments until 6 months postop. Questions answered in laymen terms at the bedside. The diagnosis, home exercise plan and any ongoing restrictions/ recommendations reviewed. If unable to be reached in office, I recommend evaluation at nearest Emergency Room if any symptoms worsened or new symptoms develop for requiring urgent evaluation. RANJIT Sheppard documented in this [facility]02-09-2024 Instructions* Patient Instructions* RANJIT Sheppard - 12/22/2023 10:45 AM EST Discussed Hip Replacement Surgery- 6 week post operative visit: Xray of operative hip discussed at bedside. Reviewed Hip dislocation precautions: May start hip abduction with therapy. Reminded to hold off non urgent dental appts for 6 months post op Recommend Prophylactic Dental Antibiotics following 6 month period. documented in this encounterBarton County Memorial [id number] NoteEducation Materials POST OPERATIVE TOTAL KNEE/HIP DISCHARGE INTRUCTIONS SURGEONS WRITTEN INSTRUCTIONS: Walk with walker; bear weight to tolerance on operative extremity Elevate extremity 1 hour 3 times/day to control pain and swelling and apply cyrocuff Range of motion to ankle 10 times/hour Range of motion to knee hourly Change dressing daily. Reapply silver dressing for next four days then discontinue Rubia hose (compression stockings) for 6 weeks Physical [...] your doctor immediately or go to the emergencyroom. How can I prevent DVT? You should keep active. Moving the ankle and foot and bending the knee as tolerated when you are inbed and walking as tolerated. Take medication, especially [...] #8 follow up in office with physician environmental assistant Robinson Burt as scheduled #9 [facility] will be contacting you within the next 24 hours to set up home therapy visit #[address] Snell at the office [phone] or have him paged through the hospital enrobing machine operator [phone] for any concerns or questions #[address] Snell if no bowel movement in 2 days Or if you're uncomfortable before [facility]12-29-2023 [facility] Discharge Summary PERSON INFORMATION Name ROBBIN BARTLETT Age 63 Years 1960 Sex MALE Language Canadian PCP Idalmis Adam CNP Marital Status Unknown Phone Med Service Observation Acct# Arrival 11/08/2023 08:03:44 Visit Reason SURGERY - RIGHT TOTAL HIP - DEPUY Acuity LOS 000 47:59 Address: [address] [place] [address] Comment: PROVIDER INFORMATION VITALS INFORMATION Vital Sign [...] (given by mouth) At bedtime as needed musclespasm. No Longer Take the Following Medications ibuprofen [...] range between ( 1.3 and 2.9 ) Pine Abs#: 0.5 x103/mcL -- Normal range between ( 0.0 and 0.8 ) Auto Baso %: 0.3 % -- Normal range between ( 0.2 and 2.0 ) Auto Pine %: 7 % -- Normal range between [...] Radiology Report: Radiology Report (more content not included)...[facility] [id number] Note [id number]11-30-2023 NoteCLINICAL HISTORY: Preoperative evaluation. Former smoker. COMPARISON: None available. TECHNIQUE: [...] Anjum Velazquez MD 10/13/23 5:34 am Technologist: [facility]2023 NoteCLINICAL HISTORY: Pain. Preoperative evaluation. COMPARISON: None available. TECHNIQUE: AP and lateral radiographs of the right hip were obtained. FINDINGS: Moderate to marked osteoarthritic changes are present of the right hip. There is no displaced fracture, dislocation, evidence of avascular necrosis, or other findings of concern identified. IMPRESSION: MODERATE TO MARKED RIGHT HIP OSTEOARTHROSIS. Final Signed (Electronic Signature): Anjum Velazquez MD 10/13/23 5:33 am Technologist: [facility]AKet[facility]09-18-2023 Evaluation note* Encounter Date Diagnosis Assessment Notes Treatment Notes Treatment Clinical Notes Jul, Acute pain of right knee (ICD-10 - M25.561) [place] [employer] Other evaluation + Plan note Future Appointments Appointment Date:11/28/2024 10:15:00 AM Scheduled Provider:Umesh Aquino MD Location:[facility] Appointment Type: Open Appointment Date:10/29/2025 09:30:00 AM Scheduled Provider: Location:[facility] Appointment Type: Medicare Wellness Subsequent [facility] Evaluation noteNo assessment information available [facility] Work Phone: Evaluation noteNo InformationNortIndiana Regional [facility] Center [employer] Other evaluation note* Diagnosis S/P total right hip arthroplasty- [...] in this encounter [facility] HealthcareEvaluation [facility]* Diagnosis Pre-operative clearance- Primary Unspecified pre-operative examination Obstructive sleep apnea, adult Type 2 diabetes mellitus with peripheral neuropathy (CMS/HCC) Primary hypertension (CMS/HCC) Unspecified essential hypertension Obesity (BMI 30-39.9) Encounter for subsequent annual wellness visit (AWV) in Medicare patient- Primary Type 2 diabetes mellitus with peripheral neuropathy (CMS/HCC) Primary hypertension (CMS/HCC) Unspecified essential hypertension Obesity (BMI 30-39.9) Obesity, morbid (CMS/HCC) Morbid obesity Type 2 diabetes mellitus with insulin therapy (CMS/HCC)- Primary Primary hypertension (CMS/HCC) Unspecified essential hypertension Stage 3 chronic kidney disease, unspecified whether stage 3a or 3b CKD (HCC) (CMS/HCC) Vitamin B12 deficiency Other B-complex deficiencies Vitamin deficiency Unspecified vitamin deficiency Weakness generalized Other malaise and fatigue Type 2 diabetes mellitus with peripheral neuropathy (CMS/HCC) Obesity, morbid (CMS/HCC) Morbid obesity Other chronic pain Primary hypertension (CMS/HCC)- Primary Unspecified essential hypertension Morbid (severe) obesity due to excess calories (CMS/HCC) Body mass index (BMI) 40.0-44.9, adult (CMS/HCC) Stage 3b chronic kidney disease (HCC) (CMS/HCC) Diabetic polyneuropathy associated with diabetes mellitus due to underlying condition (CMS/HCC) Lumbar back pain with radiculopathy affecting left lower extremity Type 2 diabetes mellitus with insulin therapy (CMS/HCC) Proliferative diabetic retinopathy of both eyes associated with type 2 diabetes mellitus, unspecified proliferative retinopathy type (CMS/HCC) Type 2 diabetes mellitus with insulin therapy (CMS/HCC)- Primary Body mass index (BMI) 40.0-44.9, adult (CMS/HCC) Morbid (severe) obesity due to excess calories (CMS/HCC) Proliferative diabetic retinopathy of both eyes associated with type 2 diabetes mellitus, unspecified proliferative retinopathy type (CMS/HCC) Type 2 diabetes mellitus with peripheral neuropathy (CMS/HCC) Bilateral lower extremity edema Primary hypertension (CMS/HCC) Unspecified essential hypertension Seborrhea Charcot's joint of left foot- Primary Type II diabetes mellitus with neurological manifestations (CMS/HCC) [E11.49] Type II or unspecified type diabetes mellitus with neurological manifestations, not stated as uncontrolled Neuropathy Mononeuritis of unspecified site documented in this encounter [facility] HealthcareEvaluation note* Diagnosis Pre-operative clearance- Primary Unspecified pre-operative examination Obstructive sleep apnea, adult Type 2 diabetes mellitus with peripheral neuropathy (CMS/HCC) Primary hypertension (CMS/HCC) Unspecified essential hypertension Obesity (BMI 30-39.9) Encounter for subsequent annual wellness visit (AWV) in Medicare patient- Primary Type 2 diabetes mellitus with peripheral neuropathy (CMS/HCC) Primary hypertension (CMS/HCC) Unspecified essential hypertension Obesity (BMI 30-39.9) Obesity, morbid (CMS/HCC) Morbid obesity Type 2 diabetes mellitus with insulin therapy (CMS/HCC)- Primary Primary hypertension (CMS/HCC) Unspecified essential hypertension Stage 3 chronic kidney disease, unspecified whether stage 3a or 3b CKD (HCC) (CMS/HCC) Vitamin B12 deficiency Other B-complex deficiencies Vitamin deficiency Unspecified vitamin deficiency Weakness generalized Other malaise and fatigue Type 2 diabetes mellitus with peripheral neuropathy (CMS/HCC) Obesity, morbid (CMS/HCC) Morbid obesity Other chronic pain Primary hypertension (CMS/HCC)- Primary Unspecified essential hypertension Morbid (severe) obesity due to excess calories (CMS/HCC) Body mass index (BMI) 40.0-44.9, adult (CMS/HCC) Stage 3b chronic kidney disease (HCC) (CMS/HCC) Diabetic polyneuropathy associated with diabetes mellitus due to underlying condition (CMS/HCC) Lumbar back pain with radiculopathy affecting left lower extremity Type 2 diabetes mellitus with insulin therapy (CMS/HCC) Proliferative diabetic retinopathy of both eyes associated with type 2 diabetes mellitus, unspecified proliferative retinopathy type (CMS/HCC) Type 2 diabetes mellitus with insulin therapy (CMS/HCC)- Primary Body mass index (BMI) 40.0-44.9, adult (CMS/HCC) Morbid (severe) obesity due to excess calories (CMS/HCC) Proliferative diabetic retinopathy of both eyes associated with type 2 diabetes mellitus, unspecified proliferative retinopathy type (CMS/HCC) Type 2 diabetes mellitus with peripheral neuropathy (CMS/HCC) Bilateral lower extremity edema Primary hypertension (CMS/HCC) Unspecified essential hypertension Seborrhea Other chronic pain documented in this encounter [facility]* Diagnosis Pre-operative clearance- Primary Unspecified pre-operative examination Obstructive sleep apnea, adult Type 2 diabetes mellitus with peripheral neuropathy (CMS/HCC) Primary hypertension (CMS/HCC) Unspecified essential hypertension Obesity (BMI 30-39.9) Encounter for subsequent annual wellness visit (AWV) in Medicare patient- Primary Type 2 diabetes mellitus with peripheral neuropathy (CMS/HCC) Primary hypertension (CMS/HCC) Unspecified essential hypertension Obesity (BMI 30-39.9) Obesity, morbid (CMS/HCC) Morbid obesity Type 2 diabetes mellitus with insulin therapy (CMS/HCC)- Primary Primary hypertension (CMS/HCC) Unspecified essential hypertension Stage 3 chronic kidney disease, unspecified whether stage 3a or 3b CKD (HCC) (CMS/HCC) Vitamin B12 deficiency Other B-complex deficiencies Vitamin deficiency Unspecified vitamin deficiency Weakness generalized Other malaise and fatigue Type 2 diabetes mellitus with peripheral neuropathy (CMS/HCC) Obesity, morbid (CMS/HCC) Morbid obesity Other chronic pain Primary hypertension (CMS/HCC)- Primary Unspecified essential hypertension Morbid (severe) obesity due to excess calories (CMS/HCC) Body mass index (BMI) 40.0-44.9, adult (CMS/HCC) Stage 3b chronic kidney disease (HCC) (CMS/HCC) Diabetic polyneuropathy associated with diabetes mellitus due to underlying condition (CMS/HCC) Lumbar back pain with radiculopathy affecting left lower extremity Type 2 diabetes mellitus with insulin therapy (CMS/HCC) Proliferative diabetic retinopathy of both eyes associated with type 2 diabetes mellitus, unspecified proliferative retinopathy type (CMS/HCC) Type 2 diabetes mellitus with insulin therapy (CMS/HCC)- Primary Body mass index (BMI) 40.0-44.9, adult (CMS/HCC) Morbid (severe) obesity due to excess calories (CMS/HCC) Proliferative diabetic retinopathy of both eyes associated with type 2 diabetes mellitus, unspecified proliferative retinopathy type (CMS/HCC) Type 2 diabetes mellitus with peripheral neuropathy (CMS/HCC) Bilateral lower extremity edema Primary hypertension (CMS/HCC) Unspecified essential hypertension Seborrhea Type 2 diabetes mellitus with insulin therapy (CMS/HCC) documented in this encounter [facility] note* Diagnosis Pre-operative clearance- Primary Unspecified pre-operative examination Obstructive sleep apnea, adult Type 2 diabetes mellitus with peripheral neuropathy (CMS/HCC) Primary hypertension (CMS/HCC) Unspecified essential hypertension Obesity (BMI 30-39.9) Encounter for subsequent annual wellness visit (AWV) in Medicare patient- Primary Type 2 diabetes mellitus with peripheral neuropathy (CMS/HCC) Primary hypertension (CMS/HCC) Unspecified essential hypertension Obesity (BMI 30-39.9) Obesity, morbid (CMS/HCC) Morbid obesity Type 2 diabetes mellitus with insulin therapy (CMS/HCC)- Primary Primary hypertension (CMS/HCC) Unspecified essential hypertension Stage 3 chronic kidney disease, unspecified whether stage 3a or 3b CKD (HCC) (CMS/HCC) Vitamin B12 deficiency Other B-complex deficiencies Vitamin deficiency Unspecified vitamin deficiency Weakness generalized Other malaise and fatigue Type 2 diabetes mellitus with peripheral neuropathy (CMS/HCC) Obesity, morbid (CMS/HCC) Morbid obesity Other chronic pain Primary hypertension (CMS/HCC)- Primary Unspecified essential hypertension Morbid (severe) obesity due to excess calories (CMS/HCC) Body mass index (BMI) 40.0-44.9, adult (CMS/HCC) Stage 3b chronic kidney disease (HCC) (CMS/HCC) Diabetic polyneuropathy associated with diabetes mellitus due to underlying condition (CMS/HCC) Lumbar back pain with radiculopathy affecting left lower extremity Type 2 diabetes mellitus with insulin therapy (CMS/HCC) Proliferative diabetic retinopathy of both eyes associated with type 2 diabetes mellitus, unspecified proliferative retinopathy type (CMS/HCC) Type 2 diabetes mellitus with insulin therapy (CMS/HCC)- Primary Body mass index (BMI) 40.0-44.9, adult (CMS/HCC) Morbid (severe) obesity due to excess calories (CMS/HCC) Proliferative diabetic retinopathy of both eyes associated with type 2 diabetes mellitus, unspecified proliferative retinopathy type (CMS/HCC) Type 2 diabetes mellitus with peripheral neuropathy (CMS/HCC) Bilateral lower extremity edema Primary hypertension (CMS/HCC) Unspecified essential hypertension Seborrhea Cervical pain (neck) Cervicalgia documented in this encounter [facility]* Diagnosis Pre-operative clearance- Primary Unspecified pre-operative examination Obstructive sleep apnea, adult Type 2 diabetes mellitus with peripheral neuropathy (CMS/HCC) Primary hypertension (CMS/HCC) Unspecified essential hypertension Obesity (BMI 30-39.9) Encounter for subsequent annual wellness visit (AWV) in Medicare patient- Primary Type 2 diabetes mellitus with peripheral neuropathy (CMS/HCC) Primary hypertension (CMS/HCC) Unspecified essential hypertension Obesity (BMI 30-39.9) Obesity, morbid (CMS/HCC) Morbid obesity Type 2 diabetes mellitus with insulin therapy (CMS/HCC)- Primary Primary hypertension (CMS/HCC) Unspecified essential hypertension Stage 3 chronic kidney disease, unspecified whether stage 3a or 3b CKD (HCC) (CMS/HCC) Vitamin B12 deficiency Other B-complex deficiencies Vitamin deficiency Unspecified vitamin deficiency Weakness generalized Other malaise and fatigue Type 2 diabetes mellitus with peripheral neuropathy (CMS/HCC) Obesity, morbid (CMS/HCC) Morbid obesity Other chronic pain Primary hypertension (CMS/HCC)- Primary Unspecified essential hypertension Morbid (severe) obesity due to excess calories (CMS/HCC) Body mass index (BMI) 40.0-44.9, adult ([facility] [place]) Stage 3b chronic kidney disease (HCC) ([facility] [place]) Diabetic polyneuropathy associated with diabetes mellitus due to underlying condition ([facility] [place]) Lumbar back pain with radiculopathy affecting left lower extremity Type 2 diabetes mellitus with insulin therapy (CMS/[facility] [place]) Proliferative diabetic retinopathy of both eyes associated with type 2 diabetes mellitus, unspecified proliferative retinopathy type (CMS/HCC) Type 2 diabetes mellitus with insulin therapy ([facility] [place])- Primary Body mass index (BMI) 40.0-44.9, adult ([facility] [place]) Morbid (severe) obesity due to excess calories ([facility] [place]) Proliferative diabetic retinopathy of both eyes associated with type 2 diabetes mellitus, unspecified proliferative retinopathy type (CMS/HCC) Type 2 diabetes mellitus with peripheral neuropathy ([facility] [place]) Bilateral lower extremity edema Primary hypertension ([facility] [place]) Unspecified essential hypertension Seborrhea Lumbar radiculopathy- Primary Thoracic or lumbosacral neuritis or radiculitis, unspecified Right leg weakness Muscle weakness (generalized) Diabetic polyneuropathy associated with type 2 diabetes mellitus ([facility]/HCC) documented in this encounter [facility]Evaluation note* Diagnosis Type 2 diabetes mellitus with insulin therapy ([facility] [place])- Primary Body mass index (BMI) 40.0-44.9, adult ([facility] [place]) Morbid (severe) obesity due to excess calories ([facility] [place]) Proliferative diabetic retinopathy of both eyes associated with type 2 diabetes mellitus, unspecified proliferative retinopathy type (CMS/HCC) Type 2 diabetes mellitus with peripheral neuropathy ([facility]/HCC) Bilateral lower extremity edema Primary hypertension ([facility] [place]) Unspecified essential hypertension Seborrhea documented in this encounter [facility]Evaluation note* Diagnosis Onychomycosis- Primary Dermatophytosis of nail Pain in both feet Type II diabetes mellitus with neurological manifestations ([facility] [place]) Type II or unspecified type diabetes mellitus with neurological manifestations, not stated as uncontrolled Charcot's joint of left foot Neuropathy Mononeuritis of unspecified site documented in this encounter [facility] HealthcareEvaluation note* Diagnosis Pre-operative clearance- Primary Unspecified pre-operative examination Obstructive sleep apnea, adult Type 2 diabetes mellitus with peripheral neuropathy (CMS/HCC) Primary hypertension (CMS/HCC) Unspecified essential hypertension Obesity (BMI 30-39.9) Encounter for subsequent annual wellness visit (AWV) in Medicare patient- Primary Type 2 diabetes mellitus with peripheral neuropathy (CMS/HCC) Primary hypertension (CMS/HCC) Unspecified essential hypertension Obesity (BMI 30-39.9) Obesity, morbid (CMS/HCC) Morbid obesity Type 2 diabetes mellitus with insulin therapy (CMS/HCC)- Primary Primary hypertension (CMS/HCC) Unspecified essential hypertension Stage 3 chronic kidney disease, unspecified whether stage 3a or 3b CKD (HCC) (CMS/HCC) Vitamin B12 deficiency Other B-complex deficiencies Vitamin deficiency Unspecified vitamin deficiency Weakness generalized Other malaise and fatigue Type 2 diabetes mellitus with peripheral neuropathy (CMS/HCC) Obesity, morbid (CMS/HCC) Morbid obesity Other chronic pain Primary hypertension (CMS/HCC)- Primary Unspecified essential hypertension Morbid (severe) obesity due to excess calories (CMS/HCC) Body mass index (BMI) 40.0-44.9, adult (CMS/HCC) Stage 3b chronic kidney disease (HCC) (CMS/HCC) Diabetic polyneuropathy associated with diabetes mellitus due to underlying condition (CMS/HCC) Lumbar back pain with radiculopathy affecting left lower extremity Type 2 diabetes mellitus with insulin therapy (CMS/HCC) Proliferative diabetic retinopathy of both eyes associated with type 2 diabetes mellitus, unspecified proliferative retinopathy type (CMS/HCC) Type 2 diabetes mellitus with insulin therapy (CMS/HCC)- Primary Body mass index (BMI) 40.0-44.9, adult (CMS/HCC) Morbid (severe) obesity due to excess calories (CMS/HCC) Proliferative diabetic retinopathy of both eyes associated with type 2 diabetes mellitus, unspecified proliferative retinopathy type (CMS/HCC) Type 2 diabetes mellitus with peripheral neuropathy (CMS/HCC) Bilateral lower extremity edema Primary hypertension (CMS/HCC) Unspecified essential hypertension Seborrhea Lumbar radiculopathy- Primary Thoracic or lumbosacral neuritis or radiculitis, unspecified Lumbosacral radiculopathy Thoracic or lumbosacral neuritis or radiculitis, unspecified documented in this encounter [facility]Evaluation note* Diagnosis Pre-operative clearance- Primary Unspecified pre-operative examination Obstructive sleep apnea, adult Type 2 diabetes mellitus with peripheral neuropathy (CMS/HCC) Primary hypertension (CMS/HCC) Unspecified essential hypertension Obesity (BMI 30-39.9) Encounter for subsequent annual wellness visit (AWV) in Medicare patient- Primary Type 2 diabetes mellitus with peripheral neuropathy (CMS/HCC) Primary hypertension (CMS/HCC) Unspecified essential hypertension Obesity (BMI 30-39.9) Obesity, morbid (CMS/HCC) Morbid obesity Type 2 diabetes mellitus with insulin therapy (CMS/HCC)- Primary Primary hypertension (CMS/HCC) Unspecified essential hypertension Stage 3 chronic kidney disease, unspecified whether stage 3a or 3b CKD (HCC) (CMS/HCC) Vitamin B12 deficiency Other B-complex deficiencies Vitamin deficiency Unspecified vitamin deficiency Weakness generalized Other malaise and fatigue Type 2 diabetes mellitus with peripheral neuropathy (CMS/HCC) Obesity, morbid (CMS/HCC) Morbid obesity Other chronic pain Primary hypertension (CMS/HCC)- Primary Unspecified essential hypertension Morbid (severe) obesity due to excess calories (CMS/HCC) Body mass index (BMI) 40.0-44.9, adult (CMS/HCC) Stage 3b chronic kidney disease (HCC) (CMS/HCC) Diabetic polyneuropathy associated with diabetes mellitus due to underlying condition (CMS/HCC) Lumbar back pain with radiculopathy affecting left lower extremity Type 2 diabetes mellitus with insulin therapy (CMS/HCC) Proliferative diabetic retinopathy of both eyes associated with type 2 diabetes mellitus, unspecified proliferative retinopathy type (CMS/HCC) Type 2 diabetes mellitus with insulin therapy (CMS/HCC)- Primary Body mass index (BMI) 40.0-44.9, adult (CMS/HCC) Morbid (severe) obesity due to excess calories (CMS/HCC) Proliferative diabetic retinopathy of both eyes associated with type 2 diabetes mellitus, unspecified proliferative retinopathy type (CMS/HCC) Type 2 diabetes mellitus with peripheral neuropathy (CMS/HCC) Bilateral lower extremity edema Primary hypertension (CMS/HCC) Unspecified essential hypertension Seborrhea Type II diabetes mellitus with neurological manifestations (CMS/HCC) [E11.49]- Primary Type II or unspecified type diabetes mellitus with neurological manifestations, not stated as uncontrolled Charcot's joint of left foot Neuropathy Mononeuritis of unspecified site Onychomycosis Dermatophytosis of nail documented in this encounter [facility] HealthcareEvaluation note* Diagnosis Lumbar radiculopathy- Primary Thoracic or lumbosacral neuritis or radiculitis, unspecified DDD (degenerative disc disease), lumbar Degeneration of lumbar or lumbosacral intervertebral disc documented in this encounter [facility]* Diagnosis Type 2 diabetes mellitus with insulin therapy (CMS/HCC) documented in this encounter [facility]* Diagnosis Primary hypertension (CMS/HCC) Unspecified essential hypertension Stage 3 chronic kidney disease, unspecified whether stage 3a or 3b CKD (HCC) ([facility]/HCC) Type 2 diabetes mellitus with peripheral neuropathy (CMS/HCC) documented in this encounter [facility]* Diagnosis Type 2 diabetes mellitus with insulin therapy (CMS/HCC) documented in this encounter [facility]* Diagnosis Type 2 diabetes mellitus with peripheral neuropathy (CMS/HCC) documented in this encounter [facility]* Diagnosis Type 2 diabetes mellitus with insulin therapy (CMS/HCC)- Primary documented in this encounter [facility]* Diagnosis Pre-operative clearance- Primary Unspecified pre-operative examination Obstructive sleep apnea, adult Type 2 diabetes mellitus with peripheral neuropathy (CMS/HCC) Primary hypertension (CMS/HCC) Unspecified essential hypertension Obesity (BMI 30-39.9) Encounter for subsequent annual wellness visit (AWV) in Medicare patient- Primary Type 2 diabetes mellitus with peripheral neuropathy (CMS/HCC) Primary hypertension ([facility]/HCC) Unspecified essential hypertension Obesity (BMI 30-39.9) Obesity, morbid (CMS/HCC) Morbid obesity Type 2 diabetes mellitus with insulin therapy (CMS/HCC)- Primary Primary hypertension (CMS/HCC) Unspecified essential hypertension Stage 3 chronic kidney disease, unspecified whether stage 3a or 3b CKD (HCC) ([facility] [place]) Vitamin B12 deficiency Other B-complex deficiencies Vitamin deficiency Unspecified vitamin deficiency Weakness generalized Other malaise and fatigue Type 2 diabetes mellitus with peripheral neuropathy (CMS/HCC) Obesity, morbid (CMS/HCC) Morbid obesity Other chronic pain Primary hypertension (CMS/HCC)- Primary Unspecified essential hypertension Morbid (severe) obesity due to excess calories (CMS/HCC) Body mass index (BMI) 40.0-44.9, adult (CMS/HCC) Stage 3b chronic kidney disease (HCC) ([facility] [place]) Diabetic polyneuropathy associated with diabetes mellitus due to underlying condition ([facility]/HCC) Lumbar back pain with radiculopathy affecting left lower extremity Type 2 diabetes mellitus with insulin therapy (CMS/HCC) Proliferative diabetic retinopathy of both eyes associated with type 2 diabetes mellitus, unspecified proliferative retinopathy type (CMS/HCC) Type 2 diabetes mellitus with insulin therapy (CMS/HCC)- Primary Body mass index (BMI) 40.0-44.9, adult (CMS/HCC) Morbid (severe) obesity due to excess calories (CMS/HCC) Proliferative diabetic retinopathy of both eyes associated with type 2 diabetes mellitus, unspecified proliferative retinopathy type (CMS/HCC) Type 2 diabetes mellitus with peripheral neuropathy (CMS/HCC) Bilateral lower extremity edema Primary hypertension (CMS/HCC) Unspecified essential hypertension Seborrhea Type 2 diabetes mellitus with peripheral neuropathy (CMS/HCC) documented in this encounter [facility]Evaluation note* Diagnosis Pre-operative clearance- Primary Unspecified pre-operative examination Obstructive sleep apnea, adult Type 2 diabetes mellitus with peripheral neuropathy (CMS/HCC) Primary hypertension (CMS/HCC) Unspecified essential hypertension Obesity (BMI 30-39.9) Encounter for subsequent annual wellness visit (AWV) in Medicare patient- Primary Type 2 diabetes mellitus with peripheral neuropathy (CMS/HCC) Primary hypertension (CMS/HCC) Unspecified essential hypertension Obesity (BMI 30-39.9) Obesity, morbid (CMS/HCC) Morbid obesity Type 2 diabetes mellitus with insulin therapy (CMS/HCC)- Primary Primary hypertension (CMS/HCC) Unspecified essential hypertension Stage 3 chronic kidney disease, unspecified whether stage 3a or 3b CKD (HCC) (CMS/HCC) Vitamin B12 deficiency Other B-complex deficiencies Vitamin deficiency Unspecified vitamin deficiency Weakness generalized Other malaise and fatigue Type 2 diabetes mellitus with peripheral neuropathy (CMS/HCC) Obesity, morbid (CMS/HCC) Morbid obesity Other chronic pain Primary hypertension (CMS/HCC)- Primary Unspecified essential hypertension Morbid (severe) obesity due to excess calories (CMS/HCC) Body mass index (BMI) 40.0-44.9, adult (CMS/HCC) Stage 3b chronic kidney disease (HCC) (CMS/HCC) Diabetic polyneuropathy associated with diabetes mellitus due to underlying condition (CMS/HCC) Lumbar back pain with radiculopathy affecting left lower extremity Type 2 diabetes mellitus with insulin therapy (CMS/HCC) Proliferative diabetic retinopathy of both eyes associated with type 2 diabetes mellitus, unspecified proliferative retinopathy type (CMS/HCC) Type 2 diabetes mellitus with insulin therapy (CMS/HCC)- Primary Body mass index (BMI) 40.0-44.9, adult (CMS/HCC) Morbid (severe) obesity due to excess calories (CMS/HCC) Proliferative diabetic retinopathy of both eyes associated with type 2 diabetes mellitus, unspecified proliferative retinopathy type (CMS/HCC) Type 2 diabetes mellitus with peripheral neuropathy (CMS/HCC) Bilateral lower extremity edema Primary hypertension (CMS/HCC) Unspecified essential hypertension Seborrhea Onychomycosis- Primary Dermatophytosis of nail Neuropathy Mononeuritis of unspecified site Type II diabetes mellitus with neurological manifestations (CMS/HCC) [E11.49] Type II or unspecified type diabetes mellitus with neurological manifestations, not stated as uncontrolled Pain in both feet Corns and callosities documented in this encounter [facility]Evaluation note* Diagnosis Pre-operative clearance- Primary Unspecified pre-operative examination Obstructive sleep apnea, adult Type 2 diabetes mellitus with peripheral neuropathy (CMS/HCC) Primary hypertension (CMS/HCC) Unspecified essential hypertension Obesity (BMI 30-39.9) Encounter for subsequent annual wellness visit (AWV) in Medicare patient- Primary Type 2 diabetes mellitus with peripheral neuropathy (CMS/HCC) Primary hypertension (CMS/HCC) Unspecified essential hypertension Obesity (BMI 30-39.9) Obesity, morbid (CMS/HCC) Morbid obesity Type 2 diabetes mellitus with insulin therapy (CMS/HCC)- Primary Primary hypertension (CMS/HCC) Unspecified essential hypertension Stage 3 chronic kidney disease, unspecified whether stage 3a or 3b CKD (HCC) (CMS/HCC) Vitamin B12 deficiency Other B-complex deficiencies Vitamin deficiency Unspecified vitamin deficiency Weakness generalized Other malaise and fatigue Type 2 diabetes mellitus with peripheral neuropathy (CMS/HCC) Obesity, morbid (CMS/HCC) Morbid obesity Other chronic pain Primary hypertension (CMS/HCC)- Primary Unspecified essential hypertension Morbid (severe) obesity due to excess calories (CMS/HCC) Body mass index (BMI) 40.0-44.9, adult (CMS/HCC) Stage 3b chronic kidney disease (HCC) (CMS/HCC) Diabetic polyneuropathy associated with diabetes mellitus due to underlying condition (CMS/HCC) Lumbar back pain with radiculopathy affecting left lower extremity Type 2 diabetes mellitus with insulin therapy (CMS/HCC) Proliferative diabetic retinopathy of both eyes associated with type 2 diabetes mellitus, unspecified proliferative retinopathy type (CMS/HCC) Type 2 diabetes mellitus with insulin therapy (CMS/HCC)- Primary Body mass index (BMI) 40.0-44.9, adult (CMS/HCC) Morbid (severe) obesity due to excess calories (CMS/HCC) Proliferative diabetic retinopathy of both eyes associated with type 2 diabetes mellitus, unspecified proliferative retinopathy type (CMS/HCC) Type 2 diabetes mellitus with peripheral neuropathy (CMS/HCC) Bilateral lower extremity edema Primary hypertension (CMS/HCC) Unspecified essential hypertension Seborrhea Bilateral lower extremity edema documented in this encounter [facility] HealthcareEvaluation note* Diagnosis Pre-operative clearance- Primary Unspecified pre-operative examination Obstructive sleep apnea, adult Type 2 diabetes mellitus with peripheral neuropathy (CMS/HCC) Primary hypertension (CMS/HCC) Unspecified essential hypertension Obesity (BMI 30-39.9) Encounter for subsequent annual wellness visit (AWV) in Medicare patient- Primary Type 2 diabetes mellitus with peripheral neuropathy (CMS/HCC) Primary hypertension (CMS/HCC) Unspecified essential hypertension Obesity (BMI 30-39.9) Obesity, morbid (CMS/HCC) Morbid obesity Type 2 diabetes mellitus with insulin therapy (CMS/HCC)- Primary Primary hypertension (CMS/HCC) Unspecified essential hypertension Stage 3 chronic kidney disease, unspecified whether stage 3a or 3b CKD (HCC) (CMS/HCC) Vitamin B12 deficiency Other B-complex deficiencies Vitamin deficiency Unspecified vitamin deficiency Weakness generalized Other malaise and fatigue Type 2 diabetes mellitus with peripheral neuropathy (CMS/HCC) Obesity, morbid (CMS/HCC) Morbid obesity Other chronic pain Primary hypertension (CMS/HCC)- Primary Unspecified essential hypertension Morbid (severe) obesity due to excess calories (CMS/HCC) Body mass index (BMI) 40.0-44.9, adult (CMS/HCC) Stage 3b chronic kidney disease (HCC) (CMS/HCC) Diabetic polyneuropathy associated with diabetes mellitus due to underlying condition (CMS/HCC) Lumbar back pain with radiculopathy affecting left lower extremity Type 2 diabetes mellitus with insulin therapy (CMS/HCC) Proliferative diabetic retinopathy of both eyes associated with type 2 diabetes mellitus, unspecified proliferative retinopathy type (CMS/HCC) Type 2 diabetes mellitus with insulin therapy (CMS/HCC)- Primary Body mass index (BMI) 40.0-44.9, adult (CMS/HCC) Morbid (severe) obesity due to excess calories (CMS/HCC) Proliferative diabetic retinopathy of both eyes associated with type 2 diabetes mellitus, unspecified proliferative retinopathy type (CMS/HCC) Type 2 diabetes mellitus with peripheral neuropathy (CMS/HCC) Bilateral lower extremity edema Primary hypertension ([facility]/HCC) Unspecified essential hypertension Seborrhea Onychomycosis- Primary Dermatophytosis of nail Neuropathy Mononeuritis of unspecified site Type II diabetes mellitus with neurological manifestations ([facility] [place]) [E11.49] Type II or unspecified type diabetes mellitus with neurological manifestations, not stated as uncontrolled Pain in both feet Corns and callosities Hammer toe of right foot documented in this encounter [facility] HealthcareEvaluation note* Diagnosis Onset Date Resolution Status Admit Date Anemia acuteJun2024 1:12pmChronic kidney disease, stage II (mild)acuteJun2024 1:12pmDiabetic nephropathy associated with type 2 diabetes mellitusacute April 15, 2025 1:12pmHypertensive nephropathyacuteJun2024 1:12pm [facility] Work Phone: Evaluation note* Diagnosis Pre-operative clearance- Primary Unspecified pre-operative examination Obstructive sleep apnea, adult Type 2 diabetes mellitus with peripheral neuropathy (HCC) Primary hypertension Unspecified essential hypertension Obesity (BMI 30-39.9) Encounter for subsequent annual wellness visit (AWV) in Medicare patient- Primary Type 2 diabetes mellitus with peripheral neuropathy (HCC) Primary hypertension Unspecified essential hypertension Obesity (BMI 30-39.9) Obesity, morbid ([facility] [place]) Morbid obesity Type 2 diabetes mellitus with insulin therapy (HCC)- Primary Primary hypertension Unspecified essential hypertension Stage 3 chronic kidney disease, unspecified whether stage 3a or 3b CKD ([facility] [place]) Vitamin B12 deficiency Other B-complex deficiencies Vitamin deficiency Unspecified vitamin deficiency Weakness generalized Other malaise and fatigue Type 2 diabetes mellitus with peripheral neuropathy (HCC) Obesity, morbid ([facility]-HCC) Morbid obesity Other chronic pain Primary hypertension- Primary Unspecified essential hypertension Morbid (severe) obesity due to excess calories ([facility] [place]) Body mass index (BMI) 40.0-44.9, adult ([facility] [place]) Stage 3b chronic kidney disease ([facility] [place]) Diabetic polyneuropathy associated with diabetes mellitus due to underlying condition (HCC) Lumbar back pain with radiculopathy affecting left lower extremity Type 2 diabetes mellitus with insulin therapy (HCC) Proliferative diabetic retinopathy of both eyes associated with type 2 diabetes mellitus, unspecified proliferative retinopathy type (HCC) Type 2 diabetes mellitus with insulin therapy (HCC)- Primary Body mass index (BMI) 40.0-44.9, adult ([facility] [place]) Morbid (severe) obesity due to excess calories ([facility] [place]) Proliferative diabetic retinopathy of both eyes associated with type 2 diabetes mellitus, unspecified proliferative retinopathy type (HCC) Type 2 diabetes mellitus with peripheral neuropathy (HCC) Bilateral lower extremity edema Primary hypertension Unspecified essential hypertension Seborrhea Bilateral lower extremity edema documented in this encounter [facility] HealthcareEvaluation note* Diagnosis Pre-operative clearance- Primary Unspecified pre-operative examination Obstructive sleep apnea, adult Type 2 diabetes mellitus with peripheral neuropathy (HCC) Primary hypertension Unspecified essential hypertension Obesity (BMI 30-39.9) Encounter for subsequent annual wellness visit (AWV) in Medicare patient- Primary Type 2 diabetes mellitus with peripheral neuropathy (HCC) Primary hypertension Unspecified essential hypertension Obesity (BMI 30-39.9) Obesity, morbid ([facility] [place]) Morbid obesity Type 2 diabetes mellitus with insulin therapy (HCC)- Primary Primary hypertension Unspecified essential hypertension Stage 3 chronic kidney disease, unspecified whether stage 3a or 3b CKD ([facility] [place]) Vitamin B12 deficiency Other B-complex deficiencies Vitamin deficiency Unspecified vitamin deficiency Weakness generalized Other malaise and fatigue Type 2 diabetes mellitus with peripheral neuropathy (HCC) Obesity, morbid ([facility] [place]) Morbid obesity Other chronic pain Primary hypertension- Primary Unspecified essential hypertension Morbid (severe) obesity due to excess calories ([facility] [place]) Body mass index (BMI) 40.0-44.9, adult ([facility] [place]) Stage 3b chronic kidney disease ([facility] [place]) Diabetic polyneuropathy associated with diabetes mellitus due to underlying condition ([facility] [place]) Lumbar back pain with radiculopathy affecting left lower extremity Type 2 diabetes mellitus with insulin therapy (HCC) Proliferative diabetic retinopathy of both eyes associated with type 2 diabetes mellitus, unspecified proliferative retinopathy type (HCC) Type 2 diabetes mellitus with insulin therapy (HCC)- Primary Body mass index (BMI) 40.0-44.9, adult ([facility] [place]) Morbid (severe) obesity due to excess calories ([facility] [place]) Proliferative diabetic retinopathy of both eyes associated with type 2 diabetes mellitus, unspecified proliferative retinopathy type (HCC) Type 2 diabetes mellitus with peripheral neuropathy (HCC) Bilateral lower extremity edema Primary hypertension Unspecified essential hypertension Seborrhea Type II diabetes mellitus with neurological manifestations (HCC)- Primary Type II or unspecified type diabetes mellitus with neurological manifestations, not stated as uncontrolled Corns and callosities Hammer toe of right foot Onychomycosis Dermatophytosis of nail Neuropathy Mononeuritis of unspecified site documented in this encounter [facility] HealthcareEvaluation note* Diagnosis Pre-operative clearance- Primary Unspecified pre-operative examination Obstructive sleep apnea, adult Type 2 diabetes mellitus with peripheral neuropathy (HCC) Primary hypertension Unspecified essential hypertension Obesity (BMI 30-39.9) Encounter for subsequent annual wellness visit (AWV) in Medicare patient- Primary Type 2 diabetes mellitus with peripheral neuropathy (HCC) Primary hypertension Unspecified essential hypertension Obesity (BMI 30-39.9) Obesity, morbid ([facility]-HCC) Morbid obesity Type 2 diabetes mellitus with insulin therapy (HCC)- Primary Primary hypertension Unspecified essential hypertension Stage 3 chronic kidney disease, unspecified whether stage 3a or 3b CKD ([facility] [place]) Vitamin B12 deficiency Other B-complex deficiencies Vitamin deficiency Unspecified vitamin deficiency Weakness generalized Other malaise and fatigue Type 2 diabetes mellitus with peripheral neuropathy (HCC) Obesity, morbid ([facility] [place]) Morbid obesity Other chronic pain Primary hypertension- Primary Unspecified essential hypertension Morbid (severe) obesity due to excess calories ([facility] [place]) Body mass index (BMI) 40.0-44.9, adult ([facility] [place]) Stage 3b chronic kidney disease ([facility] [place]) Diabetic polyneuropathy associated with diabetes mellitus due to underlying condition (HCC) Lumbar back pain with radiculopathy affecting left lower extremity Type 2 diabetes mellitus with insulin therapy (HCC) Proliferative diabetic retinopathy of both eyes associated with type 2 diabetes mellitus, unspecified proliferative retinopathy type (HCC) Type 2 diabetes mellitus with insulin therapy (HCC)- Primary Body mass index (BMI) 40.0-44.9, adult ([facility] [place]) Morbid (severe) obesity due to excess calories ([facility] [place]) Proliferative diabetic retinopathy of both eyes associated with type 2 diabetes mellitus, unspecified proliferative retinopathy type (HCC) Type 2 diabetes mellitus with peripheral neuropathy (HCC) Bilateral lower extremity edema Primary hypertension Unspecified essential hypertension Seborrhea Type 2 diabetes mellitus with insulin therapy (HCC) Primary hypertension Unspecified essential hypertension documented in this encounter [facility] HealthcareEvaluation note* Diagnosis Pre-operative clearance- Primary Unspecified pre-operative examination Obstructive sleep apnea, adult Type 2 diabetes mellitus with peripheral neuropathy (HCC) Primary hypertension Unspecified essential hypertension Obesity (BMI 30-39.9) Encounter for subsequent annual wellness visit (AWV) in Medicare patient- Primary Type 2 diabetes mellitus with peripheral neuropathy (HCC) Primary hypertension Unspecified essential hypertension Obesity (BMI 30-39.9) Obesity, morbid ([facility] [place]) Morbid obesity Type 2 diabetes mellitus with insulin therapy (HCC)- Primary Primary hypertension Unspecified essential hypertension Stage 3 chronic kidney disease, unspecified whether stage 3a or 3b CKD ([facility] [place]) Vitamin B12 deficiency Other B-complex deficiencies Vitamin deficiency Unspecified vitamin deficiency Weakness generalized Other malaise and fatigue Type 2 diabetes mellitus with peripheral neuropathy (HCC) Obesity, morbid ([facility] [place]) Morbid obesity Other chronic pain Primary hypertension- Primary Unspecified essential hypertension Morbid (severe) obesity due to excess calories ([facility] [place]) Body mass index (BMI) 40.0-44.9, adult ([facility] [place]) Stage 3b chronic kidney disease ([facility] [place]) Diabetic polyneuropathy associated with diabetes mellitus due to underlying condition ([facility] [place]) Lumbar back pain with radiculopathy affecting left lower extremity Type 2 diabetes mellitus with insulin therapy (HCC) Proliferative diabetic retinopathy of both eyes associated with type 2 diabetes mellitus, unspecified proliferative retinopathy type (HCC) Type 2 diabetes mellitus with insulin therapy (HCC)- Primary Body mass index (BMI) 40.0-44.9, adult ([facility] [place]) Morbid (severe) obesity due to excess calories ([facility] [place]) Proliferative diabetic retinopathy of both eyes associated with type 2 diabetes mellitus, unspecified proliferative retinopathy type (HCC) Type 2 diabetes mellitus with peripheral neuropathy (HCC) Bilateral lower extremity edema Primary hypertension Unspecified essential hypertension Seborrhea Charcot's joint of left foot- Primary Type II diabetes mellitus with neurological manifestations (HCC) Type II or unspecified type diabetes mellitus with neurological manifestations, not stated as uncontrolled Corns and callosities Hammer toes of both feet Equinus contracture of left ankle Equinus contracture of right ankle documented in this encounter [facility] HealthcareEvaluation note* Diagnosis Pre-operative clearance- Primary Unspecified pre-operative examination Obstructive sleep apnea, adult Type 2 diabetes mellitus with peripheral neuropathy (HCC) Primary hypertension Unspecified essential hypertension Obesity (BMI 30-39.9) Encounter for subsequent annual wellness visit (AWV) in Medicare patient- Primary Type 2 diabetes mellitus with peripheral neuropathy (HCC) Primary hypertension Unspecified essential hypertension Obesity (BMI 30-39.9) Obesity, morbid ([facility] [place]) Morbid obesity Type 2 diabetes mellitus with insulin therapy (HCC)- Primary Primary hypertension Unspecified essential hypertension Stage 3 chronic kidney disease, unspecified whether stage 3a or 3b CKD ([facility] [place]) Vitamin B12 deficiency Other B-complex deficiencies Vitamin deficiency Unspecified vitamin deficiency Weakness generalized Other malaise and fatigue Type 2 diabetes mellitus with peripheral neuropathy (HCC) Obesity, morbid ([facility] [place]) Morbid obesity Other chronic pain Primary hypertension- Primary Unspecified essential hypertension Morbid (severe) obesity due to excess calories ([facility] [place]) Body mass index (BMI) 40.0-44.9, adult ([facility] [place]) Stage 3b chronic kidney disease ([facility] [place]) Diabetic polyneuropathy associated with diabetes mellitus due to underlying condition (HCC) Lumbar back pain with radiculopathy affecting left lower extremity Type 2 diabetes mellitus with insulin therapy (HCC) Proliferative diabetic retinopathy of both eyes associated with type 2 diabetes mellitus, unspecified proliferative retinopathy type (HCC) Type 2 diabetes mellitus with insulin therapy (HCC)- Primary Body mass index (BMI) 40.0-44.9, adult ([facility] [place]) Morbid (severe) obesity due to excess calories ([facility] [place]) Proliferative diabetic retinopathy of both eyes associated with type 2 diabetes mellitus, unspecified proliferative retinopathy type (HCC) Type 2 diabetes mellitus with peripheral neuropathy (HCC) Bilateral lower extremity edema Primary hypertension Unspecified essential hypertension Seborrhea Right hip pain- Primary Pain in joint, pelvic region and thigh History of total hip replacement, right documented in this encounter [facility] HealthcareEvaluation note* Diagnosis Pre-operative clearance- Primary Unspecified pre-operative examination Obstructive sleep apnea, adult Type 2 diabetes mellitus with peripheral neuropathy (HCC) Primary hypertension Unspecified essential hypertension Obesity (BMI 30-39.9) Encounter for subsequent annual wellness visit (AWV) in Medicare patient- Primary Type 2 diabetes mellitus with peripheral neuropathy (HCC) Primary hypertension Unspecified essential hypertension Obesity (BMI 30-39.9) Obesity, morbid ([facility] [place]) Morbid obesity Type 2 diabetes mellitus with insulin therapy (HCC)- Primary Primary hypertension Unspecified essential hypertension Stage 3 chronic kidney disease, unspecified whether stage 3a or 3b CKD ([facility] [place]) Vitamin B12 deficiency Other B-complex deficiencies Vitamin deficiency Unspecified vitamin deficiency Weakness generalized Other malaise and fatigue Type 2 diabetes mellitus with peripheral neuropathy (HCC) Obesity, morbid ([facility] [place]) Morbid obesity Other chronic pain Primary hypertension- Primary Unspecified essential hypertension Morbid (severe) obesity due to excess calories [facility] Body mass index (BMI) 40.0-44.9, adult ([facility] [place]) Stage 3b chronic kidney disease ([facility] [place]) Diabetic polyneuropathy associated with diabetes mellitus due to underlying condition (HCC) Lumbar back pain with radiculopathy affecting left lower extremity Type 2 diabetes mellitus with insulin therapy (HCC) Proliferative diabetic retinopathy of both eyes associated with type 2 diabetes mellitus, unspecified proliferative retinopathy type (HCC) Type 2 diabetes mellitus with insulin therapy (HCC)- Primary Body mass index (BMI) 40.0-44.9, adult ([facility] [place]) Morbid (severe) obesity due to excess calories ([facility] [place]) Proliferative diabetic retinopathy of both eyes associated with type 2 diabetes mellitus, unspecified proliferative retinopathy type (HCC) Type 2 diabetes mellitus with peripheral neuropathy ([facility] [place]) Bilateral lower extremity edema Primary hypertension Unspecified essential hypertension Seborrhea Type II diabetes mellitus with neurological manifestations ([facility] [place])- Primary Type II or unspecified type diabetes mellitus with neurological manifestations, not stated as uncontrolled Corns and callosities Hammer toes of both feet Charcot's joint of left foot Equinus contracture of right ankle Hammer toe of right foot Equinus contracture of left ankle documented in this encounter [facility] HealthcareEvaluation note* Diagnosis Pre-operative clearance- Primary Unspecified pre-operative examination Obstructive sleep apnea, adult Type 2 diabetes mellitus with peripheral neuropathy (HCC) Primary hypertension Unspecified essential hypertension Obesity (BMI 30-39.9) Encounter for subsequent annual wellness visit (AWV) in Medicare patient- Primary Type 2 diabetes mellitus with peripheral neuropathy (HCC) Primary hypertension Unspecified essential hypertension Obesity (BMI 30-39.9) Obesity, morbid ([facility] [place]) Morbid obesity Type 2 diabetes mellitus with insulin therapy ([facility] [place])- Primary Primary hypertension Unspecified essential hypertension Stage 3 chronic kidney disease, unspecified whether stage 3a or 3b CKD ([facility] [place]) Vitamin B12 deficiency Other B-complex deficiencies Vitamin deficiency Unspecified vitamin deficiency Weakness generalized Other malaise and fatigue Type 2 diabetes mellitus with peripheral neuropathy ([facility] [place]) Obesity, morbid ([facility] [place]) Morbid obesity Other chronic pain Primary hypertension- Primary Unspecified essential hypertension Morbid (severe) obesity due to excess calories ([facility] [place]) Body mass index (BMI) 40.0-44.9, adult ([facility] [place]) Stage 3b chronic kidney disease ([facility] [place]) Diabetic polyneuropathy associated with diabetes mellitus due to underlying condition (HCC) Lumbar back pain with radiculopathy affecting left lower extremity Type 2 diabetes mellitus with insulin therapy (HCC) Proliferative diabetic retinopathy of both eyes associated with type 2 diabetes mellitus, unspecified proliferative retinopathy type (HCC) Type 2 diabetes mellitus with insulin therapy (HCC)- Primary Body mass index (BMI) 40.0-44.9, adult ([facility] [place]) Morbid (severe) obesity due to excess calories ([facility] [place]) Proliferative diabetic retinopathy of both eyes associated with type 2 diabetes mellitus, unspecified proliferative retinopathy type (HCC) Type 2 diabetes mellitus with peripheral neuropathy (HCC) Bilateral lower extremity edema Primary hypertension Unspecified essential hypertension Seborrhea Type II diabetes mellitus with neurological manifestations (HCC)- Primary Type II or unspecified type diabetes mellitus with neurological manifestations, not stated as uncontrolled Corns and callosities Hammer toes of both feet Charcot's joint of left foot Equinus contracture of right ankle Equinus contracture of left ankle documented in this encounter [facility] HealthcareEvaluation note* Diagnosis Pre-operative clearance- Primary Unspecified pre-operative examination Obstructive sleep apnea, adult Type 2 diabetes mellitus with peripheral neuropathy (HCC) Primary hypertension Unspecified essential hypertension Obesity (BMI 30-39.9) Encounter for subsequent annual wellness visit (AWV) in Medicare patient- Primary Type 2 diabetes mellitus with peripheral neuropathy (HCC) Primary hypertension Unspecified essential hypertension Obesity (BMI 30-39.9) Obesity, morbid ([facility] [place] Morbid obesity Type 2 diabetes mellitus with insulin therapy (HCC)- Primary Primary hypertension Unspecified essential hypertension Stage 3 chronic kidney disease, unspecified whether stage 3a or 3b CKD ([facility] [place]) Vitamin B12 deficiency Other B-complex deficiencies Vitamin deficiency Unspecified vitamin deficiency Weakness generalized Other malaise and fatigue Type 2 diabetes mellitus with peripheral neuropathy (HCC) Obesity, morbid ([facility] [place]) Morbid obesity Other chronic pain Primary hypertension- Primary Unspecified essential hypertension Morbid (severe) obesity due to excess calories ([facility] [place] Body mass index (BMI) 40.0-44.9, adult ([facility] [place]) Stage 3b chronic kidney disease ([facility] [place]) Diabetic polyneuropathy associated with diabetes mellitus due to underlying condition (HCC) Lumbar back pain with radiculopathy affecting left lower extremity Type 2 diabetes mellitus with insulin therapy (HCC) Proliferative diabetic retinopathy of both eyes associated with type 2 diabetes mellitus, unspecified proliferative retinopathy type (HCC) Type 2 diabetes mellitus with insulin therapy (HCC)- Primary Body mass index (BMI) 40.0-44.9, adult ([facility] [place]) Morbid (severe) obesity due to excess calories ([facility] [place]) Proliferative diabetic retinopathy of both eyes associated with type 2 diabetes mellitus, unspecified proliferative retinopathy type (HCC) Type 2 diabetes mellitus with peripheral neuropathy (HCC) Bilateral lower extremity edema Primary hypertension Unspecified essential hypertension Seborrhea Onychomycosis- Primary Dermatophytosis of nail Neuropathy Mononeuritis of unspecified site Type II diabetes mellitus with neurological manifestations (HCC) Type II or unspecified type diabetes mellitus with neurological manifestations, not stated as uncontrolled Corns and callosities Charcot's joint of left foot Pain in both feet documented in this encounter [facility] HealthcareEvaluation note* Diagnosis Pre-operative clearance- Primary Unspecified pre-operative examination Obstructive sleep apnea, adult Type 2 diabetes mellitus with peripheral neuropathy (HCC) Primary hypertension Unspecified essential hypertension Obesity (BMI 30-39.9) Encounter for subsequent annual wellness visit (AWV) in Medicare patient- Primary Type 2 diabetes mellitus with peripheral neuropathy (HCC) Primary hypertension Unspecified essential hypertension Obesity (BMI 30-39.9) Obesity, morbid ([facility] [place]) Morbid obesity Type 2 diabetes mellitus with insulin therapy (HCC)- Primary Primary hypertension Unspecified essential hypertension Stage 3 chronic kidney disease, unspecified whether stage 3a or 3b CKD ([facility] [place]) Vitamin B12 deficiency Other B-complex deficiencies Vitamin deficiency Unspecified vitamin deficiency Weakness generalized Other malaise and fatigue Type 2 diabetes mellitus with peripheral neuropathy (HCC) Obesity, morbid ([facility] [place]) Morbid obesity Other chronic pain Primary hypertension- Primary Unspecified essential hypertension Morbid (severe) obesity due to excess calories ([facility] [place] Body mass index (BMI) 40.0-44.9, adult ([facility] [place]) Stage 3b chronic kidney disease ([facility] [place]) Diabetic polyneuropathy associated with diabetes mellitus due to underlying condition ([facility] [place] Lumbar back pain with radiculopathy affecting left lower extremity Type 2 diabetes mellitus with insulin therapy (HCC) Proliferative diabetic retinopathy of both eyes associated with type 2 diabetes mellitus, unspecified proliferative retinopathy type (HCC) Type 2 diabetes mellitus with insulin therapy (HCC)- Primary Body mass index (BMI) 40.0-44.9, adult ([facility] [place]) Morbid (severe) obesity due to excess calories ([facility] [place]) Proliferative diabetic retinopathy of both eyes associated with type 2 diabetes mellitus, unspecified proliferative retinopathy type (HCC) Type 2 diabetes mellitus with peripheral neuropathy (HCC) Bilateral lower extremity edema Primary hypertension Unspecified essential hypertension Seborrhea Right hip pain- Primary Pain in joint, pelvic region and thigh History of total hip replacement, right documented in this encounter [facility] N[facility]ative - Reported* Type Description Date Medical History type 1 diabetes Medical HistoryhypertensionMedical Historylow cholesterolMedical Historychronic depressionMedical HistoryanxietySurgical Historyknee l4Hatywbme History radial/ulnar neuropathySurgical Historyhand surgery x 4Surgical Historyshoulder x 3Surgical HistoryappendixSurgical HistorygallbladderSurgical Historyhernia x2 Surgical HistoryneckSurgical Historytumor chinHospitalization Historysurgeries [email or web address] Other Hospital course Narrative No data available for this section [facility] Hospital Discharge instructions No data available for this section [facility] Progress note No data available for this section [facility] Reason for referral (narrative)No reason for referral information availableMer[facility] Work Phone: Reason for visit Narrative* Injection (Routine) - ClosedSpecialtyDiagnoses / ProceduresReferred By ContactReferred To Contact Neurology Diagnoses Lumbar radiculopathy Procedures Nerve Block Jose Kendall NP [address] [place] [address] Phone: tel: fax: Referral IDStatusReasonStart DateExpiration DateVisits RequestedVisits [id number]/[id number] [facility] HealthcareReason for visit Narrative* Injection (Routine) - ClosedSpecialty Diagnoses / ProceduresReferred By ContactReferred To ContactNeurology Diagnoses Lumbar radiculopathy Procedures Nerve Block Lluvia Woodward NP [address] [place] [phone] Phone: tel: Referral IDStatusReasonStart DateExpiration DateVisits RequestedVisits [id number] [facility] Summary Purpose Family History No Family History Records Found Relationship Condition Age at Onset Recorded Date/T messi mother Unknown Relationship Condition Age at Onset Recorded Date/T messi mother Unknown Malignant neoplasmUnknownLupusUnknown Relationship Condition Age at Onset Recorded Date/T messi mother Lupus Unknown DeceasedUnknownMalignant neoplasm of uterusUnknownfatherDeceasedUnknownPresence of cardiac pacemakerUnknownBipolar disorderUnknownbrotherDeceasedUnknown Advance Directives No Advanced Directives Records Found Advance Directive Response Recorded Date/ Time Advance Directives No April 21 4:57pm Chief Complaint and Reason for Visit Chief Complaint r29.898 r20.2 Chief Complaint Admit Date February 03, 2025 3:0 9pm E11.21 N18.32 February 12, 2025 11:4 1am Chief Complaint Admit Date E11.21 N18.32 February 12, 2025 11:4 1am February 18, 2025 12:4 6pm N18.32 E11.21 February 20, 2025 7:0 2am Chief Complaint Admit Date E11.21 N18.32 February 12, 2025 11:4 1am N18.32 E11.21 February 20, 2025 7:0 2am March 17, 2025 8:00am renal f/u April 15, 2025 1:12p m Reason for Visit Admit Date Anemia April 15, 2025 1:12p m Chronic kidney disease, stage II (mild) April 15, 2025 1:12pm Diabetic nephropathy associated with typ e 2 diabetes mellitus April 15, 2025 1:12pm Hypertensive nephropathy April 15, 2025 1:12pm Chief Complaint Admit Date renal f/u April 15, 2025 1:12p m June 03, 2025 9:03 am ER [facility] LEFT SHOULDER FX WX June 04 1:32pm Reason for Visit Admit Date Anemia April 15, 2025 1:12p m Chronic kidney disease, stage II (mild) April 15, 2025 1:12pm Diabetic nephropathy associated with typ e 2 diabetes mellitus April 15, 2025 1:12pm Hypertensive nephropathy April 15, 2025 1:12pm Fracture of proximal end of left humerus June 04, 2025 1:32pm Chief Complaint Admit Date renal f/u April 15, 2025 1:12p m June 03, 2025 9:03 am ER [facility] LEFT SHOULDER FX WX June 04 1:32pm S42.A - Unspecified fracture of upper end of le June 25, 2025 12:43pm 3 WEEKS June 25, 2025 2: 29pm Reason for Visit Admit Date Anemia April 15, 2025 1:12p m Chronic kidney disease, stage II (mild) April 15, 2025 1:12pm 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 April 15, 2025 1:12pm Hypertensive nephropathy April 15, 2025 1:12pm Fracture of proximal end of left humerus June 04, 2025 1:32pm Fracture of proximal end of left humerus June 25, 2025 2:29pm Chief Complaint Admit Date June 03, 2025 9:03 am ER [facility] LEFT SHOULDER FX WX June 04 1:32pm S42.A - Unspecified fracture of upper end of le June 25, 2025 12:43pm 3 WEEKS June 25, 2025 2: 29pm S42.295D - Other nondisplaced fracture o f upper en July 23, 2025 8:35am 4 WEEKS July 23, 2025 9:16am Reason for Visit Admit Date Fracture of proximal end of left humerus June 04, 2025 1:32pm Fracture of proximal end of left humerus June 25, 2025 2:29pm Fracture of proximal end of left humerus July 23, 2025 9:16am Chief Complaint Admit Date June 03, 2025 9:03 am ER [facility] LEFT SHOULDER FX WX June 04 1:32pm S42.A - Unspecified fracture of upper end of le June 25, 2025 12:43pm 3 WEEKS June 25, 2025 2: 29pm S42.295D - Other nondisplaced fracture o f upper en July 23, 2025 8:35am 4 WEEKS July 23, 2025 9:16am EPIDURAL F/U July 24, 2025 11:26am Chief Complaint Admit Date June 03, 2025 9:03 am ER [facility] LEFT SHOULDER FX WX June 04 1:32pm S42.A - Unspecified fracture of upper end of le June 25, 2025 12:43pm 3 WEEKS June 25, 2025 2: 29pm S42.295D - Other nondisplaced fracture o f upper en July 23, 2025 8:35am 4 WEEKS July 23, 2025 9:16am EPIDURAL F/U July 24, 2025 11:26am EPI- BILAT L4-- APPROVED #[id number] Octo lucia 2024 8:37am Reason for Visit Admit Date Fracture of proximal end of left humerus June 04, 2025 1:32pm Fracture of proximal end of left humerus June 25, 2025 2:29pm Fracture of proximal end of left humerus July 23, 2025 9:16am Degenerative disc disease, lumbar Septem 2024 11:26am 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 July 24, 2025 11:26am Facet arthropathy, lumbar July 11:26am Lumbosacral radiculopathy July 11:26am Myalgia July 24, 2025 11:26am Chief Complaint Admit Date S4.A - Unspecified fracture of upper end of le June 25, 2025 12:43pm 3 WEEKS June 25, 2025 2: 29pm S42.295D - Other nondisplaced fracture o f upper en July 23, 2025 8:35am 4 WEEKS July 23, 2025 9:16am EPIDURAL F/U July 24, 2025 11:26am EPI- BILAT L4-- APPROVED #[id number] Octo 2024 8:37am August 26, 2025 1 :45pm S42.295D - Other nondisplaced fracture o f upper en September 12, 2025 8:18am 6 WEEKS September 12, 2025 1 0:02am Reason for Visit Admit Date Fracture of proximal end of left humerus June 25, 2025 2:29pm Fracture of proximal end of left humerus July 23, 2025 9:16am Degenerative disc disease, lumbar Septem lucia 2025 11:26am 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 July 24, 2025 11:26am Facet arthropathy, lumbar July 11:26am Lumbosacral radiculopathy July 11:26am Myalgia July 24, 2025 11:26am Fracture of proximal end of left humerus September 12, 2025 10:02am Other nondisplaced fracture of upper end of left humerus, subsequent encoun September 12, 2025 10:02am Pre-op exam September 12, 2025 1 0:02am Chief Complaint Admit Date S4.A - Unspecified fracture of upper end of le June 25, 2025 12:43pm 3 WEEKS June 25, 2025 2: 29pm S42.295D - Other nondisplaced fracture o f upper en July 23, 2025 8:35am 4 WEEKS July 23, 2025 9:16am EPIDURAL F/U July 24, 2025 11:26am EPI- BILAT L4-- APPROVED #[id number] Octo 2024 8:37am BH August 26, 2025 1 :45pm S42.295D - Other nondisplaced fracture o f upper en September 12, 2025 8:18am 6 WEEKS September 12, 2025 1 0:02am Shoulder pain September 12, 2025 1 2:50pm Reason for Referral SpecialtyDiagnoses / ProceduresReferred By ContactReferred To Contact Diagnoses Type 2 diabetes mellitus with insulin therapy ([facility] [place] Idalmis Adam NP [address] [place] [address] Referral IDStatusReasonStart DateExpiration DateVisits RequestedVisits [id number] Review Reason evaluate and treat Diagnosis 1 Acute pain of right knee (M25.561) Referral Organization [facility] urosurgery Referring Provider First Name Rasheeda Referring Provider Last Name Blades Referring Provider Specialty Neurologica l Surgery Referred Organization Unknown Facility Referred Provider Jin Randolph Referred Provider Specialty Orthopaedic Surgery Referral Priority Routine General Notes Blaise Mantilla i 10/02/2023 08:37:02 AM > provider is with the [facility] Kathleen Lazo 10/02/2023 03:09:16 PM >received today, tried to contact Dr. Randolph's [phone] to inquire their process for referrals, was advised that they could schedule the appointment by phone but since patient has had previous surgery to the knee they need to know when that surgery was performed before an appointment can be scheduled for him. Called patient and he said thathis last surgery on this particular knee was [...] surgery and his recovery after before scheduling anything.Clinical Notesph: [phone] 8 years ago arthroscopy Reason evaluate and treat Diagnosis 1 Degenerative disc di sease, lumbar (M51.36) Referral Organization [facility] urosurgery Referring Provider First Name Rasheeda Referring Provider Last Name Hina Referring Provider Specialty Neurologica l Surgery Referred Organization [facility] Referred Provider ARIAN US [place] Address [address] [address] [facility] [place],[address] Referred Provider Specialty General Surg rey Referral [...] section and content) DATE CREATED AUTHOR 05/07/2018 [facility] DATE CREATED AUTHOR AUTHOR'S ORGANIZ ATION 03/10/2023 [facility] DATE CREATED AUTHOR AUTHOR'S ORGANIZ ATION 11/16/2023 [facility] DATE CREATED AUTHOR AUTHOR'S ORGANIZ ATION 11/14/2024 [facility] DATE CREATED AUTHOR AUTHOR'S ORGANIZ ATION 06/22/2025 [facility] DATE CREATED AUTHOR AUTHOR'S ORGANIZ ATION 06/26/2025 [facility] DATE CREATED AUTHOR AUTHOR'S ORGANIZ ATION 07/30/2025 [facility] DATE CREATED AUTHOR AUTHOR'S ORGANIZ ATION 09/09/2025 [facility] DATE CREATED AUTHOR AUTHOR'S ORGANIZ ATION 09/24/2025 [facility] Care Teams (unrecognized sec tion and content) Team Status: Active Member Role Status Dates Umesh Aquino MD Primary Care Provider Active Team Status: Active Member Role Status Dates NON STAFF Primary Care Provider Active Start: June 03, 2025 Charlie Mcdonald MDAttmelquiades ProviderActiveStart: June 03, 2025 Team Status: Inactive Member Role Status Dates Umesh Aquino MD Primary Care Provider Active Start: June 04, 2025 End: June 04, 2025Jubernardnio Hanley DOAttending ProviderActiveStart: June 04, 2025 End: June 04, 2025 Team Status: Inactive Member Role Status Dates Landen Hanley DO Attending Provider Active S tart: June 25, 2025 End: June 25, 2025SaMaira Padgett Care ProviderActiveStart: June 25, 2025 End: June 25, 2025 Team Status: Inactive Member Role Status Dates Umesh Aquino MD Primary Care Provider Active Start: June 25, 2025 End: June 25, 2025Jubernardino Hanley DOAttmelquiades ProviderActiveStart: June 25, 2025 End: June 25, 2025 Team Status: Active Member Role Status Dates Landen Hanley DO Attending Provider Active S tart: July 23, 2025 Maira Sanchez Care ProviderActiveStart: July 23, 2025 Team Status: Inactive Member Role Status Dates Umesh Aquino MD Primary Care Provider Active Start: July 23, 2025 End: July 23, 2025Jubernardino Hanley DOAttending ProviderActiveStart: July 23, 2025 End: July 23, 2025 Team Status: Inactive Member Role Status Dates Umesh Aquino MD Primary Care Provider Active Start: February 12, 2025 End: February 12raven Magallanes , Angelending ProviderActiveStart: February 12, 2025 End: February 12, 2025 Team Status: Active Member Role Status Dates NON STAFF Primary Care Provider Active Start: February 18, 2025 Charlie Mcdonald , BENJAMINttending ProviderActiveStart: February 18, 2025 Team Status: Inactive Member Role Status Dates Umesh Aquino MD Primary Care Provider Active Start: February 20, 2025 End: February 20raven Magallanes , BENJAMINttending ProviderActiveStart: February 20, 2025 End: February 20, 2025 Team Status: Active Member Role Status Dates NON STAFF Primary Care Provider Active Team Status: Active Member Role Status Dates NON STAFF Primary Care Provider Active Naima Mcdonald MDAttending ProviderActive Team Status: Inactive Member Role Status Dates NON STAFF Primary Care Provider Active Jose Kendall CIVIL CADD TECHNICIAN-CAttending ProviderActiveTeam MemberRelationshipSpecialty Start DateEnd Date Idalmis Adam NP [address] [place] [id number] PCP - Donny BENNETT09/13/23 Baljinder Pineda MD [address] [place] [address] PCP - GeneralFamily Medicine12/20/23 Idalmis Adam NP [address] [place] [address] Referring Physicianmily Xzftiwei09/20/23Team MemberRelationshipSpecialtyStart DateEnd Date Idalmis Adam NP [address] [place] [address] PCP - Donny BENNETT09/13/23 Baljinder Pineda MD [address] [place] [address] PCP - [facility] Medicine12/20/23 Idalmis Adam NP [address] [place] [address] [facility] Dpwtnphx64/20/23Team MemberRelationshipSpecialtyStart DateEnd Date Idalmis Adam NP [address] [place] [address] PCP - Donny BENNETT09/13/23 Baljinder Pineda MD [address] [place] [address] PCP - [facility]12/20/23 Idalmis Adam NP [address] [place] [address] Referring PhysicianChildren[facility]09/01/23Team MemberRelationshipSpecialtyStart DateEnd Date Idalmis Adam NP [address] [place] [address] PCP - Donny BENNETT09/13/23 Baljinder Pineda MD [address] [place] [address] PCP - [facility]12/20/23 Idalmis Adam NP Referring PhysicianFamily Jflqpzrc79/20/23 Tosha Mesa, TURNER MACHINE Licensed Practical NurseFamily Medicine07/26/24Team MemberRelationshipSpecialty Start DateEnd Date Idalmis Adam NP [address] [place] [address] PCP - Donny BENNETT09/13/23 Unallocatcristian, Sung Urban MD [facility] [place] [address] PCP - GeneralFamily Whsmurbi39/23/24 Idalmis Adam NP Referring Physicianmily Ibhfmvyu16/20/23 Tosha Mesa LPN Licensed Practical NurseFamily Medicine07/26/24Team MemberRelationshipSpecialty Start DateEnd Date Idalmis Adam NP [address] [place] [address] PCP - Donny BENNETT09/13/23 UnalSung mccormack MD [address] [place] [address] [place] [address] PCP - Generalmily Jdiryeut79/23/24 Idalmis Adam NP Referring Physicianmily Dhsedrrs72/20/23Team MemberRelationshipSpecialtyStart DateEnd Date Idalmis Adam NP [address] [place] [address] PCP Roman Hines MA09/13/23 UnalmengcatSung foster MD [address] [facility] [address] PCP - GeneralFamily Brixxlfy57/23/24 Idalmis Adam NP Referring Physicianmily Jjgsnvub52/20/23Team MemberRelationshipSpecialtyStart DateEnd Date Idalmis Adam NP [address] [place] [address] PCP - Donny BENNETT09/13/23 Unallocatcristian, Nimeshs Provider, [address] [place] [address] PCP - Generalmily Jvgrtiud23/23/24 Idalmis Adam NP Referring Physicianmi Cmrcipkq04/20/23Te MemberRelationshipSpecialtyStart DateEnd Date Idalmis Adam NP [address] [place] [address] PCP - Donny BENNETT09/13/23 Unallocatcristian, Nimeshs Provider, [address] [place] [address] PCP - GeneralFamily Cotzxpmg01/23/24 Idalmis Adam NP Referring Physicianmily Yxsldhfv51/20/23Team MemberRelationshipSpecialtyStart DateEnd Date Idalmis Adam NP [address] [place] [address] PCP - [place]09/13/23 Umesh Aquino MD [address] [place] [facility] [place] [address] PCP - GeneralFamily Raqykgkj04/4/24Team MemberRelationshipSpecialtyStart DateEnd Date Idalmis Adam NP [address] [place] [address] PCP - [place]09/13/23 Umesh Aquino MD [address] [place] [address] PCP - GeneralFamily Lkykvhkz68/4/24Team MemberRelationshipSpecialtyStart DateEnd Date Idalmis Adam NP [address] [place] [address] PCP - [place]09/13/23 Baljinder Pineda MD [address] [place] [address] PCP - GeneralFamily Medicine12/20/23 Idalmis Adam NP Referring PhysicianFamily Iwvrnxga21/20/23 Kai Dumont LPN Licensed Practical Nursemily Medicine04/25/24Team MemberRelationshipSpecialty Start DateEnd Date Idalmis Adam NP [address] [place] [address] PCP - Donny BENNETT09/13/23 Baljinder Pineda MD [address] [place] [address] PCP - GeneralFamily Medicine12/20/23 Idalmis Adam NP Referring PhysicianFamily Snntanvg74/20/23 Kai Dumont, TURNER MACHINE Licensed Practical NurseFamily Medicine04/25/24Team MemberRelationshipSpecialty Start DateEnd Date Idalmis Adam NP [address] [place] [address] PCP - Donny BENNETT09/13/23 Baljinder Pineda MD [address] [place] [address] PCP - Generalmily Medicine12/20/23 Idalmis Adam NP Referring Physicianmily Qarfbyrl57/20/23 Kai Dumont, TURNER MACHINE Licensed Practical NurseFamily Medicine04/25/24Team MemberRelationshipSpecialty Start DateEnd Date Idalmis Adam NP [address] [place] [address] PCP - Donny BENNETT09/13/23 Umesh Aquino MD [address] [place] [address] PCP - GeneralFamily Zbhxteru86/4/24Team MemberRelationshipSpecialtyStart DateEnd Date Idalmis Adam NP [address] [place] [address] PCP - [place]09/13/23 Umesh Aquino MD [address] [place] [address] PCP - [facility]Children[facility]10/16/24Team MemberRelationshipSpecialtyStart DateEnd Date Idalmis Adam NP [address] [place] [address] PCP - [place]09/13/23 Umesh Aquino MD [address] [place] [address] PCP - GeneralChildren[facility]10/16/24Team MemberRelationshipSpecialtyStart DateEnd Date Idalmis Adam NP [address] [place] [address] PCP - [place]09/13/23 Baljinder Pineda MD [address] [place] [address] PCP - GeneralChildren[facility]12/20/23 Idalmis Adam NP Referring Physicianmily Valnlvip52/20/23 Kai Dumont LPN Licensed Practical NurseMitchell County Regional Health Centerly Medicine04/25/24Team MemberRelationshipSpecialty Start DateEnd Date Idalmis Adam NP [address] [place] [address] PCP - Donny [place]09/13/23 Baljinder Pineda MD [address] [place] [address] PCP - GeneralFamily Medicine12/20/23 Idalmis Adam NP Referring Physicianmily Azntiygm98/20/23 Kai Dumont LPN Licensed Practical NurseFamily Medicine04/25/24Team MemberRelationshipSpecialty Start DateEnd Date Idalmis Adam NP [address] [place] [address] PCP - [place]09/13/23 Baljinder Pineda MD [address] [place] [address] PCP - [facility]12/20/23 Idalmis Adam NP Referring Physicianmily Rrmihlhn10/20/23 Kai Dumont LPN Licensed Practical NurseFamily Medicine04/25/24Team MemberRelationshipSpecialty Start DateEnd Date Idalmis Adam NP [address] [place] [address] PCP - Donny BENNETT09/13/23 Baljinder Pineda MD [address] [place] [address] PCP - GeneralFamily Medicine12/20/23 Idalmis Adam NP Referring Physicianmily Hnnfyjsz12/20/23 Kai Dumont LPN Licensed Practical NurseFamily Medicine04/25/24Team MemberRelationshipSpecialty Start DateEnd Date Idalmis Adam NP [address] [place] [phone] PCP - Donny BENNETT09/13/23 Baljinder Pineda MD [address] [place] [phone] [facility] - [facility]ly [facility]12/20/23 Idalmis Adam NP Referring PhysicianMitchell County [facility] Centerly Fwqzrjbp06/20/23 Kai Dumont LPN Licensed Practical NurseFamily Medicine04/25/24Team MemberRelationshipSpecialty Start DateEnd Date Idalmis Adam NP [address] [place] [address] PCP - Donny BENNETT09/13/23 Baljinder Pineda MD [address] [place] [address] P[facility] - [facility]12/20/23 Idalmis Adam NP Referring Physicianmily Gehjgadh36/20/23 Tosha Mesa LPN Licensed Practical NurseFamily Medicine07/26/24Team MemberRelationshipSpecialty Start DateEnd Date Idalmis Adam NP [address] [place] [address] PCP - Donny BENNETT09/13/23 Baljinder Pineda MD [address] [place] [address] PCP - GeneralFamily Medicine12/20/23 Idalmis Adam NP Referring PhysicianFamily Vtvmxzgq91/20/23 Kai Dumont LPN Licensed Practical NurseFamily Medicine04/25/24Team MemberRelationshipSpecialty Start DateEnd Date Idalmis Adam NP [address] [place] [address] PCP - Donny BENNETT09/13/23 Baljinder Pineda MD [address] [place] [address] PCP - GeneralFamily Medicine12/20/23 Idalmis Adam NP Referring PhysicianFamily Yhpquhaj87/20/23 Tosha Mesa LPN Licensed Practical NurseFamily Medicine07/26/24Team MemberRelationshipSpecialty Start DateEnd Date Idalmis Adam NP [address] [place] [address] PCP - [place]09/13/23 Umesh Aquino MD [address] [facility] [place] [address] PCP - [facility]10/16/24Team MemberRelationshipSpecialtyStart DateEnd Date Umesh Aquino MD [address] [place] [facility] [place] [address] PCP - [facility]10/16/24Team MemberRelationshipSpecialtyStart DateEnd Date Umesh Aquino MD [address] [place] [facility] [place] [address] PCP - [facility]10/16/24Team MemberRelationshipSpecialtyStart DateEnd Date Umesh Aquino MD [address] [place] [facility] [place] [address] PCP - [facility]10/16/24 Team Status: Active Member Role Status Dates NON STAFF Primary Care Provider Active Start: February 03, 2025 Lise Ivey ProviderActiveStart: February 03, 2025 Team MemberRelationshipSpecialtyStart DateEnd Date Idalmis Adam NP [address] [place] [address] PCP - [place]09/13/23 Umesh Aquino MD [address] [facility], [place] [phone] PCP - [facility]10/16/24 Team Status: Active Member Role Status Dates NON STAFF Primary Care Provider Active Start: March 17, 2025 Lise Ivey ProviderActiveStart: March 17, 2025 Team Status: Inactive Member Role Status Dates Umesh Aquino MD Primary Care Provider Active Start: April 15, 2025 End: April 15raven Lise Magallanes ProviderActiveStart: April 15, 2025 End: April 15, 2025Team MemberRelationshipSpecialtyStart DateEnd Date Idalmis Adam NP [address] [place] [address] PCP - Donny BENNETT09/13/23 Umesh Aquino MD [address], [place] [phone] [facility] Olwdablo68/4/24Team MemberRelationshipSpecialtyStart DateEnd Date Idalmis Adam NP [address] [place] [address] PCP - Donny BENNETT09/13/23 Umesh Aquino MD [address], [place] [phone] PCP - Generalmi Qhhspbqm41/4/24Team MemberRelationshipSpecialtyStart DateEnd Date Idalmis Adam NP [address] [place] [address] PCP - Donny BENNETT09/13/23 Umesh Aquino MD [address], [place] [address] [facility] Bmywwpnn17/4/24 Team Status: Active Member Role Status Dates Landen Hanley DO Attending Provider Active S tart: June 25, 2025 Maira Sanchez ProviderActiveStart: June 25, 2025 Team MemberRelationshipSpecialtyStart DateEnd Date Idalmis Adam NP [address] [place] [address] PCP - [place]09/13/23Team MemberRelationshipSpecialtyStart DateEnd Date Idalmis Adam NP [address] [place] [address] PCP - [place]09/13/23Team MemberRelationshipSpecialtyStart DateEnd Date Idalmis Adam NP [address] [place] [address] PCP - [place]09/13/23 Umesh Aquino MD [address] [place] [address] PCP - [facility]07/01/25Team MemberRelationshipSpecialtyStart DateEnd Date Idalmis Adam NP [address] [place] [address] PCP - [place]09/13/23 Umesh Aquino MD [address] [phone] PCP - [facility]07/01/25 Team Status: Inactive Member Role Status Dates Landen Hanley DO Attending Provider Active S tart: July 23, 2025 End: July 23, 2025Maira Sanchez ProviderActiveStart: July 23, 2025 End: July 23, 2025 Team Status: Inactive Member Role Status Dates Umesh Aquino MD Primary Care Provider Active Start: July 24, 2025 End: July 24, 2025Lluvia Woodward APRN-FNP-CAttending ProviderActive Start: July 24, 2025 End: July 24, 2025Team MemberRelationshipSpecialtyStart DateEnd Date Idalmis Adam NP [address] [place] [address] PCP - Donny [place]09/13/23 Umesh Aquino MD [address] [place] [address] [facility]07/01/25Team MemberRelationshipSpecialtyStart DateEnd Date Idalmis Adam NP [address] [place] [address] PCP - Donny [place]09/13/23 Umesh Aquino MD [address] [place], [place] [address] PCP - [facility] Medicine07/01/25 Team Status: Active Member Role Status Dates NON STAFF Family Provider Active NON STAFFPrimary Care ProviderActive Team Status: Inactive Member Role Status Dates Temi Meyers DO Attending Provider Active Start: August 26, 2025 End: August 26, 2025NON STAFFPrimary Care ProviderActiveStart: August 26, 2025 End: August 26, 2025NON STAFFFamily ProviderActiveStart: August 26, 2025 End: August 26, 2025Team MemberRelationshipSpecialtyStart DateEnd Date Idalmis Adam NP [address] [place] [address] PCP - Donny BENNETT09/13/23 Umesh Aquino MD [address] [place] [address] PCP - [facility] Medicine07/01/25Team MemberRelationshipSpecialtyStart DateEnd Date Idalmis Adam NP [address] [place] [address] PCP - Donny BENNETT09/13/23 Umesh Aquino MD [address] [place] [address] PCP - [facility]07/01/25 Team Status: Active Member Role/Relationship Status Dates NON STAFF Primary Care Provider Active Team Status: Inactive Member Role/Relationship Status Dates Landen Hanley DO Attending Provider Active S tart: June 25, 2025 End: June 25, 2025Maira Sanchez Care ProviderActiveStart: June 25, 2025 End: June 25, 2025 Team Status: Inactive Member Role/Relationship Status Dates Umesh Aquino MD Primary Care Provider Active Start: June 25, 2025 End: June 25, 2025JuCorona Emery ProviderActiveStart: June 25, 2025 End: June 25, 2025 Team Status: Inactive Member Role/Relationship Status Dates Landen Hanley DO Attending Provider Active S tart: July 23, 2025 End: July 23, 2025Maira Sanchez Care ProviderActiveStart: July 23, 2025 End: July 23, 2025 Team Status: Inactive Member Role/Relationship Status Dates Umesh Aquino MD Primary Care Provider Active Start: July 23, 2025 End: July 23, 2025Corona Soto ProviderActiveStart: July 23, 2025 End: July 23, 2025 Team Status: Inactive Member Role/Relationship Status Dates Umesh Aquino MD Primary Care Provider Active Start: July 24, 2025 End: July 24, 2025Lluvia Woodward APRN-FNP-CAttending ProviderActive Start: July 24, 2025 End: July 24, 2025 Team Status: Inactive Member Role/Relationship Status Dates Temi Meyers DO [facility] Provider Active Start: August 26, 2025 End: August 26, 2025NON STAFFPrimary Care ProviderActiveStart: August 26, 2025 End: August 26, 2025NON STAFFFamily ProviderActiveStart: August 26, 2025 End: August 26, 2025 Team Status: Active Member Role/Relationship Status Dates NON STAFF Primary Care Provider Active Start: August 26, 2025 Lise Ivey ProviderActiveStart: August 26, 2025 Team Status: Active Member Role/Relationship Status Dates NON STAFF Primary Care Provider Active Start: September 12, 2025 Corona Soto ProviderActiveStart: September 12, 2025 Team Status: Inactive Member Role/Relationship Status Dates NON STAFF Primary Care Provider Active Start: September 12, 2025 End: September 12, 2025JuDanyelle Emeryending ProviderActiveStart: September 12, 2025 End: September 12, 2025 Team Status: Inactive Member Role/Relationship Status Dates NON STAFF Primary Care Provider Active Start: September 12, 2025 End: September 12, 2025JuCorona Emery ProviderActiveStart: September 12, 2025 End: September 12, 2025 Team Status: Inactive Member Role/Relationship Status Dates NON STAFF Primary Care Provider Active Start: September 12, 2025 End: September 12, 2025JuCorona Emery ProviderActiveStart: September 12, 2025 End: September 12, 2025 Goals (unrecognized section and content) Goals may be documented in a n alternate sectionNo InformationNo Information No data available for this sectionGoals may be documented in an alternate sectionGoals may be documented in an alternate sectionGoals may be documented in an alternate sectionGoals may be documented in an alternate sectionGoals may be documented in an alternate sectionGoals may be documented in an alternate sectionGoals may be documented in an alternate sectionGoals may be documented in an alternate sectionGoals may be documented in an alternate sectionGoals may be documented in an alternate sectionGoals may be documented in an alternate sectionGoals may be documented in an alternate sectionGoals may be documented in an alternate section REASON FOR VISIT (unrecogniz ed section and content) ReasonCommentsPainReasonCommentsMed RefillReasonCommentsBack PainWeakness, Gen SpecialtyDiagnoses / ProceduresReferred By ContactReferred To ContactNeurology Diagnoses DDD (degenerative disc disease), lumbar Procedures Nerve Block Jose Kendall NP [address] [place] [address] Referral IDStatusReasonStart DateExpiration DateVisits RequestedVisits [id number] RefillReasonComments Start Diabetic shoe processScott [place] 65yo New Patient referred from Dr. Shi Coleman to start the diabetic shoe process. BS 48A1C 6.1 CIVIL CADD TECHNICIAN Quirino Wu 06/19/2025SpecialtyDiagnoses / ProceduresReferred By ContactReferred To Contact Podiatry Diagnoses Type II diabetes mellitus with neurological manifestations (HCC) Corns and callosities Hammer toe of right foot Procedures [place] OFFICE/OUTPATIENT NEW HIGH MDM 60 MINUTES Saman Coleman H, DPM [address] [place] [address] Phone: tel: fax: Aury Zarate, DPM [address] [place] [address] Phone: tel: fax: Referral IDStatusReasonStart DateExpiration DateVisits RequestedVisits [id number] Specialty Services Required /[id number]IshoqlvyNlehtqpa ShoesEstablished patient presents today to be measured for diabetic shoes. 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 Gonzalez 3 custom inserts PCP: Quirino WRIGHT 06/19/25, A1C: 6.1, BS: FOR RECORDS PERTAINING TO PATIENTS WHO ARE [...] BE BASED ON THE PRIMARY CLINICAL RECORDS. [employer] provides no warranty or guarantee of the accuracy or completeness of information in this document.
== END 2025-10-20 09:04 | disposition home or self-care (01) ==
LOC: RAD 09:03
PROVIDERS: Visit Provider Orthopaedic Surgery Orthopaedic Trauma
DX: S42.295K Other nondisplaced fracture of upper end of left humerus, subsequent encounter for fracture with nonunion (principal); Z96.619 Presence of unspecified artificial shoulder joint; M85.88 Other specified disorders of bone density and structure, other site
CPT/HCPCS: 73030